=== PATIENT | male | born 1950 | race Caucasian/White ===

== ENCOUNTER 2023-07-31 17:54 | Emergency (ER) | payer OTHER, SELFPAY ==
[2023-07-31 18:12] VITALS: BP 167/75
[2023-07-31] MEDS: NSS 1000 IV (20:06)
[2023-07-31] MEDS: DILAUDID 0.5 MG IV (20:07)
[2023-07-31] MEDS: ZOFRAN 4 MG IV (20:07)
[2023-07-31 20:11] LABS: % Basophils 0.3 % (0-2); % Eosinophils 1.8 % (0-6); % Immature Granulocytes 0.4 % (0-0.5); % Lymphocytes 20.9 % (20.5-51.1); % Monocytes 9.2 % (1.7-9.3); % Neutrophils 67.4 % (42.2-75.2); Absolute Eosinophils 0.2 10^3/uL (0-0.7); Absolute Immature Granulocytes 0.1 10^3/uL (0-0.05); Absolute Lymphocytes 2.5 10^3/uL (1.2-3.4); Absolute Monocytes 1.1 10^3/uL (0.1-0.6); Hematocrit 47.8 % (39.0-52.0); Hemoglobin 16.2 g/dL (13.0-18.0); Mean Corp Hgb Conc. 33.9 g/dL (33.0-37.0); Mean Corpuscular Hgb 29.5 pg (27.0-31.0); Mean Corpuscular Volume 86.9 fL (80.0-94.0); Mean Platelet Volume 10.2 fL (7.4-10.4); Nucleated Red Blood Cells % 0 % (-); Platelet Count 237 10^3/uL (130-400); Red Cell Dist. Width 13.5 % (11.5-14.5); White Blood Cell Count 11.9 10^3/uL (4.8-10.8)
[2023-07-31 20:14] VITALS: BP 134/64; BMI 32.3
[2023-07-31 20:22] LABS: INR 2.13; PT 24.2 Sec (11.4-14.6)
[2023-07-31 20:30] VITALS: BP 143/75
[2023-07-31 20:34] LABS: ALT (SGPT) 27 U/L (0-50); AST (SGOT) 37 U/L (17-59); Albumin 4.3 g/dl (3.5-5.0); Alkaline Phosphatase 72 U/L (38-126); Blood Urea Nitrogen 18 mg/dl (9-20); Calcium 9.8 mg/dl (8.4-10.2); Carbon Dioxide 27 mmol/L (22-30); Chloride 95 mmol/L (98-107); Glucose 172 mg/dl (70-99); Potassium 3.5 mmol/L (3.5-5.1); Sodium 137 mmol/L (135-145); Total Bilirubin 0.8 mg/dl (0.2-1.3); Total Protein 7.4 g/dl (6.3-8.2); eGFR > 60.00
[2023-07-31 21:00] VITALS: BP 121/58
[2023-07-31 21:30] VITALS: BP 130/65
--- NOTE | 2023-07-31 23:23 | ED.GENMED ---
History of Present Illness
General
Chief Complaint: Headache
Source: patient
Exam Limitations: none
Time Seen by Provider: 07/31/23 19:03
Nursing documentation reviewed up to this point in time: agreed with
Travel History
Have you had any contact with someone who has COVID-19?: No
Do you have any symptoms of coronavirus? Fever > 100 degrees, chills, cough, shortness of breath, sore throat, loss of taste or smell, muscle aches, or headache?: No
History of Present Illness
History of Present Illness:
Patient to ED with complaint of severe headache. 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 THis AM he had mild pain behind right eye that rapidly progressed. Complains of light sensitivity and feeling nauseated. Brought to
ED by spouse for eval. No fever/chills, recent illness. No dizziness. No confusion or coordination issues.
Past History
Past History
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
ED Past Surgical History: Cardiac (CABG+Mechanical aortic valve replacement 2008) and Orthopedic
Social History
Tobacco: Non-smoker
Alcohol: None
Personal:
Living: with family
Employment: Employed
Family History
Family History: CAD
Review of Systems
Review of Systems
Allergies reviewed?: Yes
All Other Systems: ROS reviewed and negative except as documented in HPI and ROS
Constitutional: Reports no symptoms
EENT: Reports no symptoms
Respiratory: Reports no symptoms
Cardiac: Reports no symptoms
ABD/GI: Reports nausea
: Reports no symptoms
Musculoskeletal: Reports no symptoms
Skin: Reports no symptoms
Neurological: Reports headache
Psychiatric: Reports no symptoms
Phy Exam
General Physical Exam
General Presentation: well appearing and moderate distress
General age: appears stated age
General Skin: warm and dry
General Habitus: normal
General Mental: alert
General Hydration: appears well hydrated
Eye Exam
Eye Exam: PERRL, EOMI, conjunctiva normal and globe normal
Neurological Exam
Neurological Exam: alert, oriented x3, CN II-XII intact, no motor deficits, no sensory deficits, speech normal and normal gait
Musculoskeletal Exam
Musculoskeletal Exam: full ROM and neuro vasc intact
Skin Exam
Skin Exam: normal color, warm/dry and no rash
Psychiatric Exam
Psychiatric Exam: normal mood/affect
Course
Orders/Labs/Results
Orders:
Orders
07/31/23 18:19
CT Head W/o Iv Contrast Urgent
Comment:
Reason For Exam: headache
07/31/23 19:30
0.9% Sodium Chloride 1000 ml [Nss] 1,000 ml IV BOLUS
HYDROmorphone [Dilaudid] 0.5 mg IV NOW STA
Ondansetron Injectable [Zofran] 4 mg IV NOW STA
07/31/23 19:31
CT Head Angio W/wo Iv Contrast Urgent
Comment:
Reason For Exam: severe right head pain 'worse headache of life'
07/31/23 20:00
Complete Blood Count/With Diff Urgent
Comprehensive Metabolic Panel Urgent
Prothrombin Time Urgent
07/31/23 22:23
Acetaminophen 1000MG/100Ml [Ofirmev] 1,000 mg in 100 ml IV ONCE
Acetaminophen IV Indication:: No OK & No Enteral Access
07/31/23 23:28
Amoxicillin [Amoxil] 500 mg PO NOW STA
Abnormal Lab Results
07/31/23
20:00
WBC 11.9 H 10^3/uL
(4.8-10.8)
Abs Immat Gran (auto) 0.1 H 10^3/uL
(0-0.05)
Absolute Neuts (auto) 8.0 H 10^3/uL
(1.4-6.5)
Absolute Monos (auto) 1.1 H 10^3/uL
(0.1-0.6)
PT 24.2 H Sec
(11.4-14.6)
Chloride 95 L mmol/L
(98-107)
Glucose 172 H mg/dl
(70-99)
07/31/23 20:00
07/31/23 20:00
Vital Signs
Initial and Last Documented VS:
Initial Vital Signs
Temp Pulse Resp BP Pulse Ox
98.3 F 83 16 167/75 100
07/31/23 18:12 07/31/23 18:12 07/31/23 18:12 07/31/23 18:12 07/31/23 18:12
Last Documented Vital Signs
Temp Pulse Resp BP Pulse Ox
98.3 F 58 18 106/54 95
07/31/23 18:12 08/01/23 01:00 08/01/23 01:00 08/01/23 01:00 08/01/23 01:00
*Radiology
Radiology exam reviewed: radiology read reviewed
*Pulse Oximetry
Patient hypoxic: no
*Critical Care Note
Total Time (30-74mins, 75-104mins- exclusive of procedures): Not Applicable
Update Note
Update Note:
Symptoms improved iwth pain medication. He is discharged home and will follow upw ith PCP
ED Attending Note
-
Portions of this chart may have been created with voice recognition software.� Occasional wrong word or��sound alike� substitutions may have occurred due to the inherent limitations of voice recognition software.
Discharge Plan
Departure
Patient Disposition: Home (Routine Discharge)
Date of Disposition: 08/01/23
Time of Disposition: 00:04
Patient with high blood pressure during this ER visit?: No
Condition: Good
Covid-19: Not Applicable
Discharge Problem:
Acute sinusitis, Headache
Instructions: Headache, Adult (DC), Sinusitis, Adult ED
Prescriptions:
New
amoxicillin 500 mg capsule
500 mg PO Q8H Qty: 20 0RF
No Action
metformin 500 MG tablet
1,000 mg PO BID@0800,1700
warfarin [Jantoven] 7.5 MG tablet
7.5 mg PO MOTH
aspirin 81 MG tablet,delayed release (/EC)
81 mg PO DAILY
warfarin [Jantoven] 5 MG tablet
10 mg PO SUTUWEFRSA
chlorthalidone 25 MG tablet
25 mg PO DAILY
sitagliptin phosphate [Januvia] 100 MG tablet
100 mg PO QPM
coenzyme [id number] [Co Q-10 (with Vit E)] 1 EACH capsule
1 ea PO HS
fsxhxpzc-cba-CN-lycopen-lutein [Centrum Silver] 1 EACH tablet
1 ea PO DAILY
cyanocobalamin (vitamin B-12) 1,000 MCG tablet
1,000 mcg PO QPM
nitroglycerin 0.4 MG tablet, sublingual
0.4 mg sublingual [id number] PRN (Reason: chest pain)
Patient Comments:
08/26/18: never used
canagliflozin [Invokana] 100 MG tablet
100 mg PO DAILY
metoprolol tartrate 12.5 MG tablet
12.5 mg PO BID
acetaminophen [Tylenol Extra Strength] 500 MG tablet
1,000 mg PO Q6HPRN PRN (Reason: mild pain)
sodium chloride [Saline Nasal] 50 SPRAYS/45 ML aerosol,spray
2 spray intranasal DAILY PRN (Reason: dry nose/sinus )
cholecalciferol (vitamin D3) 1,000 UNITS tablet
1,000 units PO QPM
omeprazole 20 MG capsule,delayed release(/EC)
20 mg PO BID
tadalafil [Cialis] 5 MG tablet
5 mg PO DAILY
dulaglutide [Trulicity] 3 MG/0.5 ML pen injector
3 mg SC WEEKLY
atorvastatin 80 MG tablet
80 mg PO QPM Qty: 30 0RF
oxycodone-acetaminophen 5 MG/325 MG tablet
1 tab PO Q6HPRN PRN (Reason: pain) Qty: 14 0RF
diazepam 5 MG tablet
5 mg PO BID PRN (Reason: spasm) Qty: 14 0RF
Referrals:
Kyrie Asher MD [Family Provider] -
Interventions
Interventions:
*Risk Screen - Suicide Last Done: 07/31/23 18:12
*General Assessment Last Done: 07/31/23 18:12
*Neglect/Abuse Screening Last Done: 07/31/23 18:12
ED- Fall Risk Assessment Last Done: 07/31/23 20:14
*ED COVID-19 Vaccine History Last Done: 07/31/23 18:12
*Nursing Disposition Last Done: 08/01/23 01:06
ED- Neurological Assessment Last Done: 07/31/23 20:14
Discharge Date and Time
Discharge Date/Time: 08/01/23 01:06
[2023-08-01] MEDS: AMOXIL 500 MG PO (00:02)
[2023-08-01] MEDS: OFIRMEV 100 IV (00:02)
[2023-08-01 00:07] VITALS: BP 139/66
[2023-08-01 00:30] VITALS: BP 116/54
[2023-08-01 01:00] VITALS: BP 106/54
== END 2023-08-01 01:06 | disposition home or self-care (01) ==
LOC: EMR 17:54
PROVIDERS: Nurse Practitioner; EMERGENCY PHYSICIAN Emergency Medicine; FAMILY PHYSICIAN Family Medicine
DX: J01.90 Acute sinusitis, unspecified (principal)
CPT/HCPCS: 99285; 96374; 96375; 96361; 70450; 70496; 80053; 85025; 85610; Q9967

== ENCOUNTER → 2023-09-13 07:45 | Outpatient (REF) | payer OTHER, SELFPAY ==
[2023-09-13 10:02] LABS: % Basophils 0.3 % (0-2); % Eosinophils 1.9 % (0-6); % Immature Granulocytes 0.6 % (0-0.5); % Lymphocytes 22.5 % (20.5-51.1); % Monocytes 8.6 % (1.7-9.3); % Neutrophils 66.1 % (42.2-75.2); Absolute Eosinophils 0.2 10^3/uL (0-0.7); Absolute Immature Granulocytes 0.1 10^3/uL (0-0.05); Absolute Lymphocytes 2.4 10^3/uL (1.2-3.4); Absolute Monocytes 0.9 10^3/uL (0.1-0.6); Absolute Neutrophils 7.1 10^3/uL (1.4-6.5); Hematocrit 46.4 % (39.0-52.0); Hemoglobin 15.3 g/dL (13.0-18.0); Mean Corpuscular Hgb 29.3 pg (27.0-31.0); Mean Corpuscular Volume 88.7 fL (80.0-94.0); Mean Platelet Volume 10.3 fL (7.4-10.4); Nucleated Red Blood Cells % 0 % (-); Platelet Count 290 10^3/uL (130-400); Red Blood Cell Count 5.23 10^6/uL (4.70-6.10); Red Cell Dist. Width 13.4 % (11.5-14.5); White Blood Cell Count 10.7 10^3/uL (4.8-10.8)
[2023-09-13 10:19] LABS: ALT (SGPT) 26 U/L (0-50); AST (SGOT) 32 U/L (17-59); Albumin 4.2 g/dl (3.5-5.0); Alkaline Phosphatase 85 U/L (38-126); Blood Urea Nitrogen 17 mg/dl (9-20); Calcium 9.2 mg/dl (8.4-10.2); Carbon Dioxide 27 mmol/L (22-30); Chloride 101 mmol/L (98-107); Glucose 159 mg/dl (70-99); HDL Cholesterol 41 mg/dl; LDL Cholesterol, Calculated 32 mg/dl; Potassium 3.6 mmol/L (3.5-5.1); Sodium 136 mmol/L (135-145); Total Bilirubin 0.6 mg/dl (0.2-1.3); Total Cholesterol 122 mg/dl (50-199); Total Protein 6.9 g/dl (6.3-8.2); Triglyceride 245 mg/dl (10-149); Very Low Density Lipoprotein 49 mg/dl (0-30); eGFR > 60.00
[2023-09-13 13:16] LABS: Glycohemoglobin (HgbA1c) 8.3 % (4.0-5.6)
== END ==
LOC: HWLAB 07:45
PROVIDERS: ATTENDING PHYSICIAN Family Medicine
DX: E11.65 Type 2 diabetes mellitus with hyperglycemia (principal); I48.0 Paroxysmal atrial fibrillation; I65.23 Occlusion and stenosis of bilateral carotid arteries; I73.9 Peripheral vascular disease, unspecified; E78.2 Mixed hyperlipidemia; I10 Essential (primary) hypertension
CPT/HCPCS: 36415; 80053; 80061; 83036; 85025

== ENCOUNTER → 2023-12-20 09:04 | Outpatient (REF) | payer OTHER, SELFPAY ==
[2023-12-20 13:04] LABS: % Basophils 0.4 % (0-2); % Eosinophils 1.9 % (0-6); % Immature Granulocytes 0.4 % (0-0.5); % Lymphocytes 21.9 % (20.5-51.1); % Monocytes 7.2 % (1.7-9.3); % Neutrophils 68.2 % (42.2-75.2); Absolute Eosinophils 0.2 10^3/uL (0-0.7); Absolute Lymphocytes 2.4 10^3/uL (1.2-3.4); Absolute Monocytes 0.8 10^3/uL (0.1-0.6); Absolute Neutrophils 7.3 10^3/uL (1.4-6.5); Hematocrit 49.7 % (39.0-52.0); Hemoglobin 16.1 g/dL (13.0-18.0); Mean Corp Hgb Conc. 32.4 g/dL (33.0-37.0); Mean Corpuscular Hgb 29.6 pg (27.0-31.0); Mean Corpuscular Volume 91.4 fL (80.0-94.0); Mean Platelet Volume 10.5 fL (7.4-10.4); Nucleated Red Blood Cells % 0 % (-); Platelet Count 240 10^3/uL (130-400); Red Blood Cell Count 5.44 10^6/uL (4.70-6.10); Red Cell Dist. Width 13.3 % (11.5-14.5); White Blood Cell Count 10.8 10^3/uL (4.8-10.8)
[2023-12-20 13:39] LABS: Glycohemoglobin (HgbA1c) 7.5 % (4.0-5.6)
[2023-12-20 13:46] LABS: ALT (SGPT) 26 U/L (0-50); AST (SGOT) 33 U/L (17-59); Albumin 4.7 g/dl (3.5-5.0); Alkaline Phosphatase 77 U/L (38-126); Blood Urea Nitrogen 16 mg/dl (9-20); Calcium 10.2 mg/dl (8.4-10.2); Carbon Dioxide 28 mmol/L (22-30); Chloride 102 mmol/L (98-107); Glucose 151 mg/dl (70-99); HDL Cholesterol 41 mg/dl; LDL Cholesterol, Calculated 42 mg/dl; Potassium 4.3 mmol/L (3.5-5.1); Sodium 139 mmol/L (135-145); Total Bilirubin 0.8 mg/dl (0.2-1.3); Total Cholesterol 128 mg/dl (50-199); Total Protein 7.5 g/dl (6.3-8.2); Triglyceride 227 mg/dl (10-149); Very Low Density Lipoprotein 45 mg/dl (0-30); eGFR > 60.00
[2023-12-20 13:55] LABS: TSH 1.23 uIU/ml (0.47-4.68)
== END ==
LOC: HWLAB 09:04
PROVIDERS: ATTENDING PHYSICIAN Family Medicine
DX: E11.65 Type 2 diabetes mellitus with hyperglycemia (principal); N40.1 Benign prostatic hyperplasia with lower urinary tract symptoms; Z95.1 Presence of aortocoronary bypass graft; E11.9 Type 2 diabetes mellitus without complications; I48.0 Paroxysmal atrial fibrillation; I65.23 Occlusion and stenosis of bilateral carotid arteries; I73.9 Peripheral vascular disease, unspecified; E78.2 Mixed hyperlipidemia
CPT/HCPCS: 36415; 80053; 80061; 83036; 84443; 85025

== ENCOUNTER → 2024-04-17 08:41 | Outpatient (REF) | payer OTHER, SELFPAY ==
[2024-04-17 12:24] LABS: % Basophils 0.5 % (0-2); % Immature Granulocytes 0.3 % (0-0.5); % Lymphocytes 25.3 % (20.5-51.1); % Monocytes 8.5 % (1.7-9.3); % Neutrophils 62.4 % (42.2-75.2); Absolute Basophils 0.1 10^3/uL (0-0.2); Absolute Eosinophils 0.3 10^3/uL (0-0.7); Absolute Lymphocytes 2.4 10^3/uL (1.2-3.4); Absolute Monocytes 0.8 10^3/uL (0.1-0.6); Hematocrit 48.4 % (39.0-52.0); Hemoglobin 15.8 g/dL (13.0-18.0); Mean Corp Hgb Conc. 32.6 g/dL (33.0-37.0); Mean Corpuscular Hgb 29.3 pg (27.0-31.0); Mean Corpuscular Volume 89.8 fL (80.0-94.0); Mean Platelet Volume 10.3 fL (7.4-10.4); Nucleated Red Blood Cells % 0 % (-); Platelet Count 248 10^3/uL (130-400); Red Blood Cell Count 5.39 10^6/uL (4.70-6.10); Red Cell Dist. Width 13.5 % (11.5-14.5); White Blood Cell Count 9.5 10^3/uL (4.8-10.8)
[2024-04-17 12:37] LABS: ALT (SGPT) 22 U/L (0-50); AST (SGOT) 31 U/L (17-59); Albumin 4.5 g/dl (3.5-5.0); Alkaline Phosphatase 72 U/L (38-126); Blood Urea Nitrogen 16 mg/dl (9-20); Calcium 9.6 mg/dl (8.4-10.2); Carbon Dioxide 27 mmol/L (22-30); Chloride 99 mmol/L (98-107); Glucose 153 mg/dl (70-99); HDL Cholesterol 43 mg/dl; LDL Cholesterol, Calculated 55 mg/dl; Potassium 4.3 mmol/L (3.5-5.1); Sodium 140 mmol/L (135-145); Total Cholesterol 139 mg/dl (50-199); Total Protein 7.2 g/dl (6.3-8.2); Triglyceride 206 mg/dl (10-149); Very Low Density Lipoprotein 41 mg/dl (0-30); eGFR > 60.00
[2024-04-17 13:04] LABS: TSH 1.42 uIU/ml (0.47-4.68)
[2024-04-17 14:43] LABS: Glycohemoglobin (HgbA1c) 7.5 % (4.0-5.6)
== END ==
LOC: HWLAB 08:41
PROVIDERS: ATTENDING PHYSICIAN Family Medicine
DX: E11.9 Type 2 diabetes mellitus without complications (principal); N40.1 Benign prostatic hyperplasia with lower urinary tract symptoms; Z95.1 Presence of aortocoronary bypass graft; I48.0 Paroxysmal atrial fibrillation; I65.23 Occlusion and stenosis of bilateral carotid arteries; I73.9 Peripheral vascular disease, unspecified; E11.65 Type 2 diabetes mellitus with hyperglycemia; E78.2 Mixed hyperlipidemia
CPT/HCPCS: 36415; 80053; 80061; 83036; 84443; 85025

== ENCOUNTER 2024-04-19 08:29 | Inpatient (IN) | payer OTHER, SELFPAY ==
[2024-04-18] VITALS (68 sets, daily range): BP systolic 104–168; BP diastolic 58–86; BMI 31.4
--- NOTE | 2024-04-18 06:22 | ED.GENMED ---
History of Present Illness
General
Chief Complaint: Chest Pain
Source: patient and spouse
Time Seen by Provider: 04/18/24 06:12
History of Present Illness
History of Present Illness:
74-year-old male presents to the emergency room complaining of chest pain. Patient rates the pain 7 out of 10. Pain began at 3 AM. Pain does not radiate. Patient has a history of coronary artery disease with bypass surgery and aortic mechanical
valve. Patient denies radiation of the pain. He denies shortness of breath. Patient has not really had any chest pain since his bypass surgery which was about 12 years ago.
Past History
Past History
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
ED Past Surgical History: Cardiac (CABG+Mechanical aortic valve replacement 2008) and Orthopedic
Social History
Tobacco: Non-smoker
Alcohol: None
Personal:
Living: with family
Employment: Employed
Family History
Family History: CAD
Phy Exam
Physical Exam
Physical Exam:
General: Awake, Alert, Oriented X3. No acute distress.
Vitals: unremarkable
Head: Atraumatic
Eyes: Pupils equal, EOMI
Throat: Airway intact, no exudates
Neck: Trachea midline
Lungs: Clear and equal b/l
Heart: Regular rate, mechanical click
Abd: Soft, Nontender, No pulsatile mass
Neuro: Nonfocal
Skin: Warm, dry, no rash
Extremities: pulses equal b/l, no edema
Scores
Heart Score for Chest Pain Patients
STEMI patient?: Yes
Course
Orders/Labs/Results
Orders:
Orders
04/18/24
Electrocardiogram (*1) Stat
Reason for Study: Chest Pain
Comment: DONE
Electrocardiogram (*1) Stat
Reason for Study: Other
04/18/24 Breakfast
NPO
Allow oral meds: Yes
Allow clear liquids: No
04/18/24 06:05
Electrocardiogram (*1) Urgent
Reason for Study: Chest Pain
EKG- Treatment ONCE
04/18/24 06:14
Electrocardiogram (*1) Urgent
Reason for Study: Chest Pain
Cardiac Monitoring- Treatment ONCE
EKG- Treatment ONCE
IV Insert/Care/Rem.- Treatment PRN
Portable Chest Xray [CR Chest Portable - 1 View] Urgent
Comment:
Reason For Exam: cp
Reason Study Needs to be Portable: Patient Unstable
O2 Therapy [RESP] Urgent
Titrate/Wean O2 to maintain O2 sat greater than (%): 90
Special Instructions: Maintain sats >/=90%
Pulse Ox/spot Check [RESP] Urgent
Quantity: 1
Special Instructions: ON ROOM AIR
04/18/24 06:17
Complete Blood Count/With Diff Urgent
Comprehensive Metabolic Panel Urgent
Prothrombin Time Urgent
Troponin I Urgent
04/18/24 06:36
Aspirin Chewable [Low Strength Aspirin] 324 mg .ROUTE .STK-MED ONE
Heparin 5,000 units .ROUTE .STK-MED ONE
Ticagrelor [Brilinta] 180 mg .ROUTE .STK-MED ONE
04/18/24 06:51
Heparin 48593 Units/250 ml 25,000 units in 250 ml .ROUTE .STK-MED
04/18/24 06:58
Echo 2D MMode Color/Doppler Stat
Reason for Study: chest pain eval for wall motion abn
Nitroglycerin 100 mg/250 ml [Nitroglycerin Premix] 100 mg in 250 ml .ROUTE .STK-MED
04/18/24 07:02
Nitroglycerin 100 mg/250 ml [Nitroglycerin Premix] 100 mg in 250 ml IV NOW
Initial dose in mcg/min, then titrate:: 5
Titrate to keep:: SBP < 160 mmHg
Titrate by mcg/min:: 5 mcg/min, may increase by 10 mcg/min if dose > 20 mcg/min
Frequency of titrations (minutes):: every 3-5 minutes
Maximum dose in mcg/min:: 200
Begin to taper infusion when:: Remained at goal for 2hrs
Taper by mcg/min:: 5 mcg/min
Frequency of taper (minutes) if patient maintains goal:: 30
Taper to off?: Yes
If infusion off & no longer maintaining goal:: Contact Provider
04/18/24 07:15
Heparin 36612 Units/250 ml 25,000 units in 250 ml IV PER PROTOCOL
Weight to be used for heparin protocol in kilograms (kg):: 96.5
Protocol:: Cardiac Tx/Acute Coronary
PTT Goal Range to be used:: PTT 73 to 111 seconds
Order type:: Initial
INITIAL Infusion Dose (UNITS/KG/hr) & then follow protocol:: 12 units/kg/hr
Infusion Dose in UNITS/hr & then follow protocol (UNITS/hr):: 1,000
INFUSION RATE in mL/hr & then follow protocol (mL/hr):: 10
PTT less than or equal to 64 seconds:: Increase rate by 200 units/hr (+ 2 mL/hr)
PTT 64.1 to 72.9 seconds:: Increase rate by 100 units/hr (+ 1 mL/hr)
PTT 73 to 111 seconds:: Target Range. No change in rate.
PTT 111.1 to 130.9 seconds:: Decrease rate by 100 units/hr (- 1 mL/hr)
PTT 131 to 199.9 seconds:: HOLD for 1 hr. Then decrease rate by 200 units/hr (- 2 mL/hr)
PTT greater than or equal to 200 seconds:: HOLD for 2 hrs & Notify Provider. Then decrease by 200 units/hr (-
2 mL/hr)
Lab follow-up:: Each change, PTT q6h until 2 consecutive are therapeutic. Then PTT
daily.
04/18/24 09:17
Troponin I Urgent
04/18/24 Lunch
1800 calorie (15 carb) Diabetic
At Your Request: Full Participation
04/18/24 11:00
Add On- LAB Urgent
Tests Added?: PTT
04/18/24 11:25
Electrocardiogram (*1) Urgent
Reason for Study: Chest Pain
EKG- Treatment ONCE
04/18/24 11:37
Heparin 1000 Units/500 ml [Heparin] 1,000 units in 500 ml .ROUTE .STK-MED
Verapamil Injectable [Isoptin/Verapamil Injection] 5 mg .ROUTE .STK-MED ONE
04/18/24 11:38
Heparin Sodium,Porcine/Ns/Pf [Heparin 2000 Units/1000 ml] 2,000 unit in 1,000 ml .ROUTE .STK-MED
Lidocaine HCl/Pf [Xylocaine-Mpf 1% Vial] 50 mg .ROUTE .STK-MED ONE
Nitroglycerin [Tridil] 1,500 mcg .ROUTE .STK-MED ONE
04/18/24 11:40
Fentanyl Citrate/Pf [Sublimaze] 100 mcg .ROUTE .STK-MED ONE
Midazolam HCl [Versed] 2 mg .ROUTE .STK-MED ONE
04/18/24 11:41
Heparin 10,000 units .ROUTE .STK-MED ONE
04/18/24 11:54
Lidocaine HCl/Pf [Xylocaine-Mpf 1% Vial] 50 mg .ROUTE .STK-MED ONE
04/18/24 12:58
Electrocardiogram (*1) Urgent
Reason for Study: Other
Other Reason for Exam: s/p intervention
Comment: cbc
CARDIAC REHAB CONSULT Routine
Co-Sign Provider:
Type of Cardiac Rehab Referral: Outpatient
Diagnosis: NSTEMI
Date of Diagnosis/Surgery: 04/18/24
Referring Provider: Greg Aviles
Activity As Directed
Activity Level: Bedrest
Comment: refer to hemostasis device used for bedrest duration, then ambulate ad mushtaq
[facility] Procedure As Directed
Cardiac Cath Procedure: percutaneous coronary intervention
Femoral Artery Hemostasis Method As Directed
Procedure performed:: Percutaneous Coronary Int
Type of femoral hemostasis method used:: Internal Closure Device
Duration of bedrest (hours):: 3
Call provider if:: hematoma present after hemostasis achieved
Head of Bed-Restrictions As Directed
Comment: may elevate head of bed 30 degrees
Intake/ Output As Directed
Frequency: Per unit guidelines
Notify MD As Directed
Notify physician if: immediately for chest pain or bleeding from access site(s)
Site Checks As Directed
Check access site for bleeding/hematoma: Yes
Comment: on arrival, Q15min x4, Q30min x2, Q1 hr x2, Q2 hr x2, Q4 hr or per
protocol
Vascular Checks As Directed
Location: distal to access site - pulse check
Frequency: Other
Comment: on arrival, Q15min x4, Q30min x2, Q1 hr x2, Q2 hr x2, Q4 hr or per protocol
Vital Signs As Directed
Frequency: Other
Additional Instructions:: on arrival, Q15min x4, Q30min x2, Q1 hr x2, Q2 hr x2, then Q4 hr or per unit
protocol
04/18/24 13:00
0.9% Sodium Chloride 1000 ml [Nss] 1,000 ml IV PER PROTOCOL
Infusion rate in mL/kg/hr:: 1.5
Infusion rate in mL/hr:: 145
Duration of infusion (hours):: 5
Acetaminophen [Tylenol] 650 mg PO Q4HPRN PRN
04/18/24 13:06
Dextrose 50%-Water [Dextrose 50% Syringe] 12.5 grams IV [id number] PRN
Glucagon [GlucaGen] 1 mg IM PRN PRN
04/18/24 13:07
Bedside Glucose Monitoring As Directed
Frequency: AC&HS
Additional Instructions:: Change to q6h if pt on TPN, tube feeding or not eating
04/18/24 15:00
Troponin I Q6H
04/18/24 16:30
Insulin Aspart Corrective Mod [Novolog Flexpen-Moderate Resistance] See Protocol SC AC
04/18/24 18:00
Atorvastatin [Lipitor] 80 mg PO QPM
Ezetimibe [Zetia] 10 mg PO QPM
Warfarin [Coumadin] 10 mg PO TUWETHFR@1800
empagliflozin [Jardiance] 25 mg PO QPM
04/18/24 21:00
Troponin I Q6H
04/19/24 03:00
Troponin I Q6H
04/19/24 06:00
Echo 2D MMode Color/Doppler IN AM
Reason for Study: NSTEMI
Cardiology Consult: Rupert Martin
Electrocardiogram (*1) IN AM
Reason for Study: Other
Other Reason for Exam: s/p intervention
Comment: cbc
Basic Metabolic Panel IN AM
Complete Blood Count/No Diff IN AM
Glycohemoglobin (HgbA1c) IN AM
Prothrombin Time IN AM
04/19/24 08:00
Clopidogrel Bisulfate [Plavix] 600 mg PO ONCE ONE
Lisinopril [Zestril] 2.5 mg PO DAILY
Metoprolol Xl [Toprol Xl] 25 mg PO DAILY
04/19/24 18:00
Warfarin [Coumadin] 10 mg PO SUMOSA@1800
04/20/24 06:00
Electrocardiogram (*1) IN AM
Reason for Study: Other
Other Reason for Exam: s/p intervention
Comment: cbc
Basic Metabolic Panel IN AM
Complete Blood Count/No Diff IN AM
Prothrombin Time IN AM
04/20/24 08:00
Clopidogrel Bisulfate [Plavix] 75 mg PO DAILY
Abnormal Lab Results
04/18/24 04/18/24
06:17 09:17
Absolute Monos (auto) 1.0 H 10^3/uL
(0.1-0.6)
PT 26.4 H Sec
(11.4-14.6)
Carbon Dioxide 21 L mmol/L
(22-30)
Glucose 162 H mg/dl
(70-99)
Troponin I 0.067 H* D ng/ml
04/18/24 06:17
04/18/24 06:17
Vital Signs
Initial and Last Documented VS:
Initial Vital Signs
Pulse Resp Pulse Ox
76 18 94
04/18/24 06:15 04/18/24 06:15 04/18/24 06:15
Last Documented Vital Signs
Temp Pulse Resp BP Pulse Ox
98 F 71 20 120/68 97
04/18/24 06:24 04/18/24 11:35 04/18/24 11:35 04/18/24 11:35 04/18/24 11:35
MDM/Problems Addressed
Differential Diagnosis Includes:
AMI, STEMI, chest wall pain
MDM/Problems Addressed:
Patient presents with chest pain. EKG shows changes in the inferior leads which are ischemic in appearance. They are different when compared to an EKG of 2021. Elevation approximate 1 mm but may not quite be 1 mm. aVL has T wave inversion which
appears ischemic. STEMI alert called. Case discussed with Dr. Gama who immediately got on her way to come to the emergency room and evaluate the patient
Dr. Gama evaluated the patient the emergency room felt EKG changes were present but did not meet STEMI/[facility] criteria at this time. Patient treated with sublingual nitro with initial resolution of his chest discomfort. First troponin was
normal. Patient started on both a nitro and heparin drip. Later in ER stay the patient's chest discomfort returned. Patient was evaluated by Dr. Ariana Goodman. Nitro was uptitrated. Ultimately the patient was taken to the [facility] for persistent
chest discomfort.
Chronic conditions affecting care: DM, HTN and CAD
*Radiology
Radiology exam reviewed: preliminary read by ED provider (No acute disease)
*Pulse Oximetry
Patient hypoxic: no
*EKG
Interpreted by ED Provider?: Yes
Comparison EKG: changes noted
Heart Rate: 70
Rate: normal
Rhythm: sinus
Ischemia: other (st elevation II, III which are close to 1mm with t wave inversion in lead avl)
*Transportation Agent Interpretation
Rate: normal
Interpretation: normal
Rhythm: sinus
*Critical Care Note
Total Time (30-74mins, 75-104mins- exclusive of procedures): 40 min
comment:
Critical care statement: A total of 40 minutes of critical care time was provided for this patient. This includes management of unstable vital signs, evaluation of the patient at bedside, reviewing the patient's pertinent medical records, discussion
with consultants, review of old EKGs and review of pertinent medical records. This time with separate from time utilized to perform the aforementioned documented procedures
Data Reviewed
Review of Other/Old Records Reveals: Discharge Summary
ED Attending Note
-
Portions of this chart may have been created with voice recognition software.� Occasional wrong word or��sound alike� substitutions may have occurred due to the inherent limitations of voice recognition software.
Discharge Plan
Departure
Patient Disposition: Admit
Date of Disposition: 04/18/24
Time of Disposition: 07:06
Admit to: IVU
Presentation/result/management discussed w/ accepting MD/DO: Hospitalist
Discharge Problem:
Acute coronary syndrome, Chest pain
Interventions
Interventions:
*Risk Screen - Suicide Last Done: 04/18/24 06:19
*General Assessment Last Done: 04/18/24 06:19
*ED COVID-19 Vaccine History Last Done: 04/18/24 06:19
*Nursing Disposition Last Done: 04/18/24 12:01
ED- Cardiac Assessment Last Done: 04/18/24 11:31
Discharge Date and Time
Discharge Date/Time: 04/18/24 12:03
[2024-04-18 06:28] LABS: % Basophils 0.5 % (0-2); % Eosinophils 2.4 % (0-6); % Immature Granulocytes 0.4 % (0-0.5); % Lymphocytes 26.2 % (20.5-51.1); % Monocytes 9.3 % (1.7-9.3); % Neutrophils 61.2 % (42.2-75.2); Absolute Basophils 0.1 10^3/uL (0-0.2); Absolute Eosinophils 0.3 10^3/uL (0-0.7); Absolute Lymphocytes 2.7 10^3/uL (1.2-3.4); Absolute Neutrophils 6.2 10^3/uL (1.4-6.5); Hematocrit 46.5 % (39.0-52.0); Hemoglobin 15.7 g/dL (13.0-18.0); Mean Corp Hgb Conc. 33.8 g/dL (33.0-37.0); Mean Corpuscular Hgb 29.2 pg (27.0-31.0); Mean Corpuscular Volume 86.6 fL (80.0-94.0); Mean Platelet Volume 10.2 fL (7.4-10.4); Nucleated Red Blood Cells % 0 % (-); Platelet Count 248 10^3/uL (130-400); Red Blood Cell Count 5.37 10^6/uL (4.70-6.10); Red Cell Dist. Width 13.6 % (11.5-14.5); White Blood Cell Count 10.2 10^3/uL (4.8-10.8)
[2024-04-18 06:38] LABS: INR 2.39; PT 26.4 Sec (11.4-14.6)
[2024-04-18 06:56] LABS: ALT (SGPT) 22 U/L (0-50); AST (SGOT) 29 U/L (17-59); Albumin 4.4 g/dl (3.5-5.0); Alkaline Phosphatase 75 U/L (38-126); Blood Urea Nitrogen 18 mg/dl (9-20); Calcium 9.8 mg/dl (8.4-10.2); Carbon Dioxide 21 mmol/L (22-30); Chloride 104 mmol/L (98-107); Estimated Creatinine Clearance 84 ml/min; Glucose 162 mg/dl (70-99); Sodium 140 mmol/L (135-145); Total Bilirubin 0.6 mg/dl (0.2-1.3); Total Protein 7.1 g/dl (6.3-8.2); eGFR > 60.00
[2024-04-18 07:03] LABS: Troponin I < 0.012 ng/ml
[2024-04-18] MEDS: HEPARIN 25000 UNITS/250 ML IV (07:12)
[2024-04-18] MEDS: NITROGLYCERIN PREMIX 250 IV (07:15)
[2024-04-18 10:16] LABS: Troponin I 0.067 ng/ml
--- NOTE | 2024-04-18 10:47 | CON.CAR ---
Addendum entered and electronically signed by Rupert Martin MD 04/18/24 11:55:
Patient seen and examined in collaboration with NIGHT SUPERVISOR; agree with below.
-74-year-old male with coronary artery disease status-post CABG/mechanical AVR (2008), hypertension, hyperlipidemia, diabetes, bilateral carotid artery stenosis, obesity, and obstructive sleep apnea (on home CPAP) presenting with chest pain;
symptoms/findings consistent with unstable angina and NSTEMI.
-The patient's INR is 2.3; patient continues to have chest pain despite being on heparin drip and uptitrated nitro drip.
-EKG with subtle ST/T changes.
-Case discussed with Interventional Cardiology; patient will undergo urgent cardiac catheterization today--patient and his were notified of the increased bleeding risk, which they accept.
-Patient will be admitted to Hospitalist service; admit to telemetry.
Original Note:
Consultation
Consultation Request
Date/Time Consultation Requested: 04/18/24 9:45a
Date/Time Consultation Performed: 04/18/24 10:30a
Requesting Provider: Dr. Finley
Performing Provider: ROCIO Webb for Dr. Martin
Reason for Consultation: chest pressure
Medical History
-
Chief Complaint: chest pressure
History of Present Illness:
Mr. Benavidez is a 74 yo male with CAD s/p CABG 2008 and mechanical AVR 2008, HTN, HLD, DM, PAT on CPAP and PAD (b/l carotid artery stenosis, Dr. Benson), who presents to the ER with chest pressure that woke him from sleep at 3 AM today. The chest
pressure persisted therefore he came to the ER. Initial troponin less than 0.012, second 1 and 0.067. Initial EKG with inferior ST changes, that improved after IV nitro. He is on IV nitro and still has complaints of chest pressure, also on IV
Heparin. He is admitted to the hospital service and we are consulted for NSTEMI.
Past Medical History
Past Medical History: Other (as above)
Past Surgical History: Other (as above)
Social History
Tobacco: Non-Smoker
Personal:
Living: With Family
Family History
Family History: Early CAD (father age 59)
Allergies / Home Medications
Allergy/AdvReac Type Severity Reaction Status Date / Time
levofloxacin [From Levaquin] Allergy Unknown Verified 09/28/21 05:53
rosuvastatin calcium Allergy Unknown Verified 09/28/21 05:53
[From Crestor]
simvastatin [From Zocor] Allergy MYALGIAS/leg Verified 09/28/21 05:53
cramping
�Medication �Instructions �Recorded �Confirmed �Type
aspirin 81 mg tablet,delayed 81 mg PO DAILY Blood clot 11/08/09 04/18/24 History
release prevention/tx
metformin 500 mg tablet 1,000 mg PO BID@0800,1700 Diabetes 11/08/09 04/18/24 History
warfarin 5 mg tablet (Jantoven) 10 mg PO SUMOSA@1800 Blood clot 11/08/09 04/18/24 History
prevention/tx
chlorthalidone 25 mg tablet 25 mg PO DAILY Fluid 01/04/15 04/18/24 History
retention/Swelling
coenzyme P43-teyswja E 100 mg-5 1 ea PO HS Supplement 01/04/15 04/18/24 History
unit capsule (Co Q-10 (with Vit E))
cyanocobalamin (vitamin B-12) 1,000 mcg PO QPM Supplement 07/07/16 04/18/24 History
1,000 mcg tablet
metoprolol tartrate 25 mg tablet 12.5 mg PO BID Blood pressure 08/07/17 04/18/24 History
acetaminophen 500 mg tablet 1,000 mg PO Q6HPRN PRN mild pain 08/26/18 04/18/24 History
(Tylenol Extra Strength)
cholecalciferol (vitamin D3) 25 1,000 units PO QPM Supplement 08/26/18 04/18/24 History
mcg (1,000 unit) tablet
atorvastatin 80 mg tablet 40 mg PO QPM 04/18/24 04/18/24 History
dulaglutide 4.5 mg/0.5 mL 4.5 mg SC BAL 04/18/24 04/18/24 History
subcutaneous pen injector
(Trulicity)
empagliflozin 25 mg tablet 25 mg PO QPM 04/18/24 04/18/24 History
(Jardiance)
ezetimibe 10 mg tablet (Zetia) 10 mg PO QPM 04/18/24 04/18/24 History
fluticasone propionate 50 2 spray intranasal BID 04/18/24 04/18/24 History
mcg/actuation nasal
spray,suspension
therapeutic multivitamin 1 tab PO DAILY 04/18/24 04/18/24 History
warfarin 5 mg tablet 10 mg PO TUWETHFR@1800 04/18/24 04/18/24 History
Review of Systems
-
All other systems: Negative unless noted
Physical Exam
Vital Signs
Temp Pulse Resp BP Pulse Ox
98 F 71 19 104/76 97
04/18/24 06:24 04/18/24 10:20 04/18/24 10:20 04/18/24 10:20 04/18/24 10:20
Lab Results
04/18/24 06:17
04/18/24 06:17
Troponin I 0.067 ng/ml H* D 04/18/24 09:17
Physical Exam
General: Well Developed, Well Nourished and No Apparent Distress
HEENT: Normocephalic, Anicteric and Moist Mucous Membranes
Respiratory: Clear and Non Labored Respirations
Cardiac: S1/S2, Regular Rhythm and Other (metallic click)
Breast: Deferred by me
GI: Soft, Non Tender and Normal Bowel Sounds
Rectal: Deferred by Provider
Genito-urinary: No Costovertebral Tender
Musculoskeletal: No Clubbing, No Cyanosis and No Edema
Skin: Warm and Dry
Neuro: AO x 3
Psych: Calm
Impression / Plan
-
NSTEMI - acute chest pressure this am.
- Initial troponin less than 0.012, second troponin 0.067.
-On IV nitro and IV heparin, still with mild chest pressure.
-Plan for Calender Supervisor today.
CAD - s/p CABG in 2008.
- NSTEMI as above.
HTN - stable on medical therapy, continue.
HLD - stable on Lipitor 40 mg daily (he has not tolerated higher doses of Lipitor in the past).
-Intolerant to rosuvastatin and simvastatin, which caused myalgias.
-He is also on Zetia, continue.
-Lipid profile 04/17/24 LDL 55.
Mechanical AVR - stable on echo.
-chronic Warfarin, INR 2.39 today.
-IV Heparin now. goal INR 2.5-3.5.
DM - hga1c 7.5% from 04/17/24.
-per hospitalist.
Data Reviewed
-
EKG: Tracing Personally Visualized and interpreted (NSR 68 bpm with LVH, ST abn inferior leads)
Radiology: Report Reviewed by me (CXR: no acute abnormality)
Medical Tests (Nuc Med, Echo etc): Report Reviewed by me (echo 05/2023: EF 55-60%, mod dilated LA, mild MS, mild MR, well seated mechanical AVR with peak/mean gradients 8/4 mmHg, trace TR)
Labs: Labs Reviewed by me
Old Records: Reviewed
--- NOTE | 2024-04-18 12:14 | HPS.HSE ---
Family Physician
-
Family Physician: Kyrie Asher
Chief Complaint
-
chest pain
History of Present Illness
74-year-old male past medical history of CAD status post CABG, mechanical aortic valve replacement 2008, hypertension, hypercholesteremia, diabetes, obstructive sleep apnea, BPH, presented to the emergency room with chest pain starting at 3 and this
morning without radiation. Denies shortness of breath.
He underwent mid LAD stent. He currently denies any symptoms.
He denies smoking or alcohol use.
Medical History
Past Medical History
Past Medical History: Reports Other (CAD status post CABG, mechanical aortic valve replacement 2008, hypertension, hypercholesteremia, diabetes, obstructive sleep apnea, BPH)
Past Surgical History: Reports Other (CABG+Mechanical aortic valve replacement 2008) and Orthopedic)
Social History
Tobacco: Non-smoker
Alcohol: None
Drug: None
Family History
Family History: Not pertinent
Allergies / Home Medications
Allergies reflects when Allergies were last updated in [facility].
Home Medications with original date entered in [facility]
Allergy/Medication List:
Allergies
Allergy/AdvReac Type Severity Reaction Status Date / Time
levofloxacin [From Levaquin] Allergy Unknown Verified 09/28/21 05:53
rosuvastatin calcium Allergy Unknown Verified 09/28/21 05:53
[From Crestor]
simvastatin [From Zocor] Allergy MYALGIAS/leg Verified 09/28/21 05:53
cramping
Home Medications
aspirin 81 mg tablet,delayed release 81 mg PO DAILY Blood clot prevention/tx 11/08/09
metformin 500 mg tablet 1,000 mg PO BID@0800,1700 Diabetes 11/08/09
warfarin 5 mg tablet (Jantoven) 10 mg PO SUMOSA@1800 Blood clot prevention/tx 11/08/09
chlorthalidone 25 mg tablet 25 mg PO DAILY Fluid retention/Swelling 01/04/15
coenzyme F90-jnugyog E 100 mg-5 unit capsule (Co Q-10 (with Vit E)) 1 ea PO HS Supplement 01/04/15
cyanocobalamin (vitamin B-12) 1,000 mcg tablet 1,000 mcg PO QPM Supplement 07/07/16
metoprolol tartrate 25 mg tablet 12.5 mg PO BID Blood pressure 08/07/17
acetaminophen 500 mg tablet (Tylenol Extra Strength) 1,000 mg PO Q6HPRN PRN mild pain 08/26/18
cholecalciferol (vitamin D3) 25 mcg (1,000 unit) tablet 1,000 units PO QPM Supplement 08/26/18
atorvastatin 40 mg tablet 40 mg PO QPM 04/18/24
dulaglutide 4.5 mg/0.5 mL subcutaneous pen injector (Trulicity) 4.5 mg SC BAL 04/18/24
empagliflozin 25 mg tablet (Jardiance) 25 mg PO QPM 04/18/24
ezetimibe 10 mg tablet (Zetia) 10 mg PO QPM 04/18/24
fluticasone propionate 50 mcg/actuation nasal spray,suspension 2 spray intranasal BID 04/18/24
therapeutic multivitamin 1 tab PO DAILY 04/18/24
warfarin 5 mg tablet 10 mg PO TUWETHFR@1800 04/18/24
Review of Systems
-
History Source: Patient
A 12 point ROS was completed and negative except as noted: Yes
Constitutional: Reports No Symptoms
EENT: Reports No Symptoms
Respiratory: Reports No Symptoms
Cardiac: Reports No Symptoms
Abdomen/GI: Reports No Symptoms
: Reports No Symptoms
Musculoskeletal: Reports No Symptoms
Skin: Reports No Symptoms
Neurological: Reports No Symptoms
Endocrine: Reports No Symptoms
Hematologic/Lymphatic: Reports No Symptoms
Psych: Reports No Symptoms
Physical Exam
Vital Signs
Vital Signs
Temp Pulse Resp BP Pulse Ox
98 F 71 20 120/68 97
04/18/24 06:24 04/18/24 11:35 04/18/24 11:35 04/18/24 11:35 04/18/24 11:35
Physical Exam
General: Well Developed, Well Nourished and No Apparent Distress
HEENT: NormoCephalic, Moist mucous membranes and Atraumatic
Respiratory: Clear
Cardiac: S1/S2 and Regular Rhythm; No Murmur or Rub
GI: Soft, Non Tender, Non Distended and Normal Bowel Sounds; No Organomegaly
Rectal: Deferred by Provider
Musculoskeletal: No Clubbing, No Cyanosis and No Edema
Skin: No Rash
Neuro: Nonfocal/grossly intact
Laboratory Results
-
04/18/24 06:17
04/18/24 06:17
Laboratory Results
PT 26.4 Sec (11.4-14.6) H 04/18/24 06:17
INR 2.39 04/18/24 06:17
Total Bilirubin 0.6 mg/dl (0.2-1.3) 04/18/24 06:17
AST 29 U/L (17-59) 04/18/24 06:17
ALT 22 U/L (0-50) 04/18/24 06:17
Alkaline Phosphatase 75 U/L (38-126) 04/18/24 06:17
Troponin I 0.067 ng/ml H* D 04/18/24 09:17
Data Reviewed
-
Lab Data: Labs Reviewed by me
Old Records: Reviewed
Impression/Plan
-
IMPRESSION:
PLAN:
# Unstable angina/NSTEMI status post mid LAD stent
# History of CAD status post CABG in 2008
-EKG shows nonspecific T wave inversions
-Troponin initially negative, increased to 0.067
-Patient underwent cardiac catheterization for recurrent chest pain
-Continue Plavix and Coumadin postcatheterization
-No longer on heparin drip and nitroglycerin drip
-Continue metoprolol
-Check A1c and lipid panel
# History of mechanical aortic valve replacement in 2008
-On Coumadin, INR 2.39, continue
-Goal INR of 2.5-3.5
-daily INR
Essential hypertension
-Lisinopril started
-Chlorthalidone held
Type 2 diabetes
-Hold metformin
-Continue Jardiance
-Insulin sliding scale
Hyperlipidemia
-Continue atorvastatin
-Continue Zetia
Obstructive sleep apnea
-Continue CPAP
BPH
Full code
DVT prophylaxis�Coumadin
Cardiac diet
--- NOTE | 2024-04-18 12:59 | ITS.CL.ANGIO ---
Critical Power Install Technician - Angioplasty
Angioplasty
Procedure Report:
CARDIAC CATHETERIZATION REPORT
Date of Procedure: 04/18/2024
Referring: Rupert Martin M.D.
INDICATION: Known coronary artery disease status post prior bypass and mechanical AVR, Non-ST elevation myocardial infarction.
PROCEDURE:
1. Coronary angiography.
2. Bypass angiography
3. Successful PCI of the mid LAD through the [place] S[place]OS graft.
ACCESS:
6 [place] right common femoral artery using a modified Seldinger technique with a micropuncture kit under ultrasound guidance.
CATHETERS:
1. 6 [place] JL 4.
2. 6 [place] JR4.
3. 6 [place] LUIGI.
4. 6 [place] LUIGI guiding catheter.
HEMODYNAMIC DATA
Weight (kg): 96.2
AO (s/d/x, mmHg): 121/62/88
LV (s/x mmHg): Not obtained.
LEFT VENTRICULOGRAPHY: Not performed. Mechanical aortic valve observed.
CORONARY ANGIOGRAPHY
Dominance: Right.
Left Main: Normal size, bifurcating vessel. There is diffuse, moderate disease throughout the body of the left main.
LAD: Normal size vessel giving rise to 2 diagonals. There is an 80-90% lesion in the proximal vessel spanning the origin of D1. There is a hazy, 80% lesion in the mid vessel at the anastomosis site, spanning the origin of D2. The mid and
distal LAD is supplied by a patent [place] SANTOS graft.
Ramus: Congenitally absent.
Circumflex: Normal size, nondominant vessel giving rise to 2 obtuse marginals by report. The vessel is chronically totally occluded at its origin. OM 2 is supplied by a patent sequential vein graft.
RCA: Large size, dominant vessel. The vessel is chronically totally occluded at its origin. The RPDA is supplied by a patent sequential vein graft.
BYPASS GRAFT ANGIOGRAPHY
DE [place] SANTOS to LAD: Normal size graft with moderate to severe tortuosity and end-to-side anastomosis at the mid LAD. There is a hazy, 80% lesion within the LAD at the site of the anastomosis and extending beyond D2.
Seq SVG to OM 2 to RPDA: Large size graft with [id number] anastomosis to OM 2 followed by an end-to-side anastomosis to the RPDA. There is no evidence of stenosis or graft degeneration.
INTERVENTION(S)
1. Successful PCI of the hazy, 80% mid LAD lesion via the DE [place] SANTOS graft (Medtronic [place] 2.75 x 26 ELLIOTT, postdilated with a 2.75 NC balloon) with reduction in stenosis to 0%, maintaining REINALDO-3 flow.
Narrative:
The decision was made to proceed with percutaneous coronary intervention. The diagnostic catheter was removed over a wire and a 6Fr LUIGI guiding catheter was advanced to the left subclavian artery and seated in the DE [place] SANTOS ostium. Additional heparin was
given and a Power Turn Flex wire was advanced into the distal LAD through the DE [place] S[place]OS graft. A 6 [place] guide liner was advanced over the power turn flex wire with balloon support. The hazy, 80% mid LAD lesion was predilated with a 2.0 x 12
semi-compliant balloon to 12 joceline. The semi-compliant balloon was removed and a Medtronic [place] 2.75 x 26 drug-eluting stent was advanced. The stent was deployed at 12 atmospheres. The stent balloon was removed. A 2.75 x 20 noncompliant
balloon was advanced into the stent and the stent was postdilated to 14 atmospheres in the distal margin and 16 joceline in the proximal margin. Angiography was performed in orthogonal views, confirming good stent expansion and an excellent angiographic
result. The coronary wire and the GuideLiner were withdrawn to the proximal graft. Angiography was performed showing an excellent PCI result and confirming no trauma or damage to the DE [place] SANTOS graft. The guide was disengaged from the artery. The
catheter was removed over a standard J-wire.
Closure Device: 6 [place] Angio-Seal plus manual pressure given elevated INR.
Radiation (mGy): 1429.06
DAP (cm2.Gy): 104.28
Fluoroscopy time (minutes): 12.6
Sedation time (minutes): 48
CONCLUSIONS
1. Right dominant circulation with chronic total occlusion of the ostial RCA, moderate, diffuse disease throughout the body of the left main, a chronic total occlusion of the circumflex at its ostium and 80-90% lesion in the proximal LAD spanning
the origin of D1 as well as an 80% lesion in the mid LAD spanning the origin of D2 at the anastomosis site, status post prior three-vessel CABG (patent DE [place] SANTOS to mid LAD, patent sequential SVG to OM 2 to RPDA), status post successful PCI of the hazy,
80% mid LAD lesion via the DE [place] SANTOS graft (Medtronic [place] 2.75 x 26 ELLIOTT, postdilated with a 2.75 NC balloon) with reduction in stenosis to 0%, maintaining REINALDO-3 flow.
2. Status post prior mechanical aortic valve replacement.
RECOMMENDATIONS:
1. Expectant management after cardiac catheterization via right femoral approach.
2. Limited weight bearing for one week.
3. Antithrombotic therapy with clopidogrel and warfarin.
4. Trend troponins to peak.
5. Echocardiogram ordered and pending.
6. Guideline directed medical therapy as hemodynamics will tolerate.
7. Aggressive risk factor modification.
8. Referral to cardiac rehab.
Copy to: Rupert Martin M.D., Kyrie Asher M.D., Greg Aviles M.D.
Ollie Eli DO, FACC, FACP
[2024-04-18 15:17] LABS: Glucose - Point of Care 105 mg/dl (70-99)
--- NOTE | 2024-04-18 15:21 | PTCARENOTE ---
Received patient from cardiac catheterization technologist, patient lying flat with access to right femoral artery which was angiosealed, distal pules by Doppler only. patient instructed on post cath procedure and verbalized understanding. monitor shows NSR, VSS. lab work
drawn as ordered. family at bedside.
--- NOTE | 2024-04-18 15:52 | CM ---
CM following for DC planning needs.
Met w/ patient, spouse and son at bedside to complete initial assessment.
Pt. resides w/ spouse in a private, multi level home.
Pt. is functionally indep. w/ ADLs, mobility without the use of any assisted device.
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
Pt. has Rx plan and uses [facility] in [place].
Anticipate DC to home once stable without needs.
Will follow.
[2024-04-18 16:03] LABS: HDL Cholesterol 39 mg/dl; LDL Cholesterol, Calculated 54 mg/dl; Total Cholesterol 114 mg/dl (50-199); Triglyceride 106 mg/dl (10-149); Very Low Density Lipoprotein 21 mg/dl (0-30)
[2024-04-18] MEDS: LIPITOR 80 MG PO (18:30)
[2024-04-18] MEDS: FARXIGA 10 MG PO (18:31)
[2024-04-18] MEDS: ZETIA 10 MG PO (18:31)
--- NOTE | 2024-04-18 18:57 | PTCARENOTE ---
patient up OOB with assist went to BR and sat in chair, right groin unchanged. patient retuned back to bed and after 1 hour c/o discomfort, right groin has hematoma, held manual pressure for 20 minutes, marked groin hematoma with marker,
ecchymotic, dsg. has dime size blood on dsg. at present groin is ecchymotic, soft to touch and walking rounds completed with on coming RN's. patient was scheduled for po Coumadin tonight, TT Dr. Eli, received order to hold Coumadin tonight.
[2024-04-18 22:42] LABS: Glucose - Point of Care 151 mg/dl (70-99)
[2024-04-19] VITALS (8 sets, daily range): BP systolic 112–142; BP diastolic 65–77; BMI 31.6
[2024-04-19] MEDS: TYLENOL 650 MG PO (03:45)
[2024-04-19 03:57] LABS: Hematocrit 41.6 % (39.0-52.0); Hemoglobin 14.6 g/dL (13.0-18.0); Mean Corp Hgb Conc. 35.1 g/dL (33.0-37.0); Mean Corpuscular Hgb 29.7 pg (27.0-31.0); Mean Corpuscular Volume 84.6 fL (80.0-94.0); Platelet Count 237 10^3/uL (130-400); Red Blood Cell Count 4.92 10^6/uL (4.70-6.10); Red Cell Dist. Width 13.6 % (11.5-14.5); White Blood Cell Count 12.5 10^3/uL (4.8-10.8)
[2024-04-19 04:10] LABS: INR 2.28
[2024-04-19 04:23] LABS: ALT (SGPT) 22 U/L (0-50); AST (SGOT) 60 U/L (17-59); Albumin 4.1 g/dl (3.5-5.0); Alkaline Phosphatase 69 U/L (38-126); Blood Urea Nitrogen 16 mg/dl (9-20); Calcium 9.3 mg/dl (8.4-10.2); Carbon Dioxide 19 mmol/L (22-30); Chloride 104 mmol/L (98-107); Estimated Creatinine Clearance 94 ml/min; Glucose 139 mg/dl (70-99); Sodium 140 mmol/L (135-145); Total Bilirubin 1.2 mg/dl (0.2-1.3); Total Protein 6.8 g/dl (6.3-8.2); eGFR > 60.00
--- NOTE | 2024-04-19 05:07 | PTCARENOTE ---
Rec'd pt at change of shift. Pt AAO*3, Pt vss, and on TELE monitor in NSR. Pt with R femoral artery site intact. Site with 3x3 cm red drainage contained within transparent dressing. Site ecchymotic and soft upon palpation. Pt agreed to report
any signs or symptoms of bleeding to nursing staff. Pt resting with call xiao in reach. Plan of care ongoing.
--- NOTE | 2024-04-19 07:48 | W.PN.HOSP.TC ---
Today's Communication/Plan
-
cont cardiac monitoring
ok to discontinue routine FS, sugars consistently well controlled
cont diabetic diet, SGLT2 inhibitor
plavix warfarin as per Cardio
Assessment / Plan
Assessment / Plan
Physical Exam
General: Well Developed, Well Nourished and No Apparent Distress
HEENT: NormoCephalic, Moist mucous membranes and Atraumatic
Respiratory: Clear
Cardiac: S1/S2 and Regular Rhythm; No Murmur or Rub
GI: Soft, Non Tender, Non Distended and Normal Bowel Sounds; No Organomegaly
Musculoskeletal: No Clubbing, No Cyanosis and No Edema
Skin: No Rash
Neuro: Awake alert conversant coherent
74M CAD CABG, mechanical AVR 2008, HTN, HLD, DM, PAT, BPH, p/w chest pain d/t NSTEMI underwent mid LAD stent.
# Unstable angina/NSTEMI status post mid LAD stent
# History of CAD status post CABG in 2008
-Continue Plavix and Coumadin postcatheterization
-heparin and nitroglycerin drip completed
-troponin trended to peak 5.000 since trended down
-Continue metoprolol
-lipid panel appreciated LDL within goal <70
# History of mechanical aortic valve replacement in 2008
-On Coumadin, INR 2.39, continue
-Goal INR of 2.5-3.0 as per Cardio
-daily INR
-Warfarin dose increased 12mg qpm Saulo, cont home 10 mg qpm rest of days
Essential hypertension
-Lisinopril started
-Chlorthalidone held
Type 2 diabetes
-A1c appreciated 7.5
-Hold metformin recent cath
-Continue SGLT2 inhibitor
-Sugars consistently well controlled at this time, no need for routine FS since discontinued
Hyperlipidemia
-Continue atorvastatin
-Continue Zetia
Obstructive sleep apnea
-Continue CPAP
BPH
Full code
DVT prophylaxis�Coumadin
Cardiac diet
I spent a total of 50 minutes with the patient or on the floor. More than 50% of this time involved counseling and coordination of care.
Anticipated Discharge: 24 - 48 hours
Subjective/Interval History
-
Date of Service: April 19, 2024
Seen and examined at bedside in no acute distress sitting up comfortably in bed. Overall reports feeling well. Chest pain resolved.
Objective Data
-
Labs:
Laboratory Results
04/19/24
03:42
WBC 12.5 H
Hgb 14.6
Hct 41.6
Plt Count 237
PT 25.0 H
INR 2.28
Sodium 140
Potassium 4.0
Chloride 104
Carbon Dioxide 19 L
BUN 16
Creatinine 0.8
Glucose 139 H
Calcium 9.3
Total Bilirubin 1.2
AST 60 H
ALT 22
Alkaline Phosphatase 69
Vital Signs:
Vital Signs
Temp Pulse Resp BP Pulse Ox
97.8 F 67 16 142/74 94
04/19/24 07:14 04/19/24 07:14 04/19/24 07:14 04/19/24 03:33 04/19/24 07:14
I&O
04/18/24 04/19/24 04/20/24
06:59 06:59 06:59
Intake Total 1205 / 1205
Output Total 775 / 775
Balance 430 / 430
[2024-04-19 08:09] LABS: Glucose - Point of Care 135 mg/dl (70-99)
[2024-04-19] MEDS: ZESTRIL 2.5 MG PO (08:19)
[2024-04-19] MEDS: TOPROL XL 25 MG PO (08:19)
[2024-04-19] MEDS: PLAVIX 600 MG PO (08:19)
--- NOTE | 2024-04-19 10:09 | W.PN.CD ---
Today's Communication / Plan
-
- Increase warfarin dose
- Continue Plavix
Impression / Plan
-
NSTEMI - acute chest pressure this am.
- Initial troponin less than 0.012, second troponin 0.067.
-s/p cath 04/18/24
Right dominant circulation with chronic total occlusion of the ostial RCA, moderate, diffuse disease throughout the body of the left main, a chronic total occlusion of the circumflex at its ostium and 80-90% lesion in the proximal LAD spanning the
origin of D1 as well as an 80% lesion in the mid LAD spanning the origin of D2 at the anastomosis site,
status post prior three-vessel CABG (patent DE LOS SANTOS to mid LAD, patent sequential SVG to OM 2 to RPDA),
status post successful PCI of the hazy, 80% mid LAD lesion via the DE [place] SANTOS graft (Medtronic [place] 2.75 x 26 ELLIOTT, postdilated with a 2.75 NC balloon) with reduction in stenosis to 0%, maintaining REINALDO-3 flow.
- On Warfarin and Plavix. With recent stent and without ASA, would allow higher INR
- Increase Mon, Sat and Sun dose to 12 mg QD. Keep rest of the week at 10mg.
- INR in AM if still inhouse.
CAD - s/p CABG in 2008.
- NSTEMI as above.
HTN - stable on medical therapy, continue.
HLD - stable on Lipitor 40 mg daily (he has not tolerated higher doses of Lipitor in the past).
-Intolerant to rosuvastatin and simvastatin, which caused myalgias.
-He is also on Zetia, continue.
-Lipid profile 04/17/24 LDL 55.
Mechanical AVR - stable on echo.
-chronic Warfarin, INR 2.39 today.
-IV Heparin now. goal INR 2.5-3.0.
DM - hga1c 7.5% from 04/17/24.
-per hospitalist.
Physical Exam
Vital Signs/Labs
Vital Signs
Temp Pulse Resp BP Pulse Ox
97.8 F 72 16 140/75 96
04/19/24 07:14 04/19/24 08:19 04/19/24 07:14 04/19/24 08:19 04/19/24 08:41
04/18/24 04/19/24 04/20/24
06:59 06:59 06:59
Actual Weight 96.5 kg 97 kg
04/19/24 03:42
04/19/24 03:42
PT 25.0 Sec (11.4-14.6) H 04/19/24 03:42
INR 2.28 04/19/24 03:42
APTT Cancelled 04/18/24 07:02
Triglycerides 106 mg/dl (10-149) 04/18/24 15:29
LDL Cholesterol, Calc 54 mg/dl 04/18/24 15:29
VLDL Cholesterol, Calc 21 mg/dl (0-30) 04/18/24 15:29
HDL Cholesterol 39 mg/dl 04/18/24 15:29
LAB Results
04/18/24 04/18/24 04/18/24
06:17 09:17 15:29
Troponin I < 0.012 0.067 H* D 1.190 H* D
04/18/24 04/19/24
21:25 03:42
Troponin I 3.700 H* D 5.000 H* D
Physical Exam
Constitutional: No acute distress and Comfortable
EENT: Anicteric and Moist mucous membranes
Cardiovascular: Rhythm & rate is regular, Pedal edema is absent and JVD pressure is normal
Respiratory: Respiratory effort normal and Wheeze Absent
GI: Soft, Non tender and Normal bowel sounds
Neuro/Psych: Alert, Oriented and AO x 3
Data Reviewed
-
Date of Service: April 19, 2024
Medical Decision Making: Reviewed Test Results, Independent Historian Assessment and Review of Case with other Provider
EKG: Tracing Personally Visualized and interpreted
Echo: Report Reviewed by me
Labs: Labs Reviewed by me
Old Records: Reviewed
--- NOTE | 2024-04-19 10:11 | PTCARENOTE ---
patient c/o constipation, TT Dr. Bolaños, ordered miralax and senokot.
[2024-04-19] MEDS: MIRALAX 17 GRAMS PO (10:53)
[2024-04-19 12:00] LABS: Glucose - Point of Care 140 mg/dl (70-99)
[2024-04-19] MEDS: ZETIA 10 MG PO (17:19)
[2024-04-19] MEDS: LIPITOR 80 MG PO (17:19)
[2024-04-19] MEDS: FARXIGA 10 MG PO (17:19)
[2024-04-19] MEDS: COUMADIN 12 MG PO (17:21)
[2024-04-19] MEDS: VITAMIN B-12 1000 MCG PO (18:18)
[2024-04-19] MEDS: VITAMIN D3 (cholecalciferol) 25 MCG PO (18:18)
[2024-04-19] MEDS: SENOKOT-S PO (19:52)
[2024-04-20] VITALS (7 sets, daily range): BP systolic 110–128; BP diastolic 60–78
--- NOTE | 2024-04-20 00:47 | PTCARENOTE ---
Tele remains SR on monitor, HR in the 60-70's at rest. Patient c/o intermittent right chest discomfort, and described as 'intermittent & sharp'. Patient aware of PRN Tylenol, and declines to take any at this time. Right groin dressing w/ old
drainage and site ecchymotic. Soft upon palpation. Patient aware of POC, call xiao within reach.
[2024-04-20 04:50] LABS: INR 2.66; PT 28.2 Sec (11.4-14.6)
[2024-04-20 04:54] LABS: Hematocrit 40.6 % (39.0-52.0); Mean Corp Hgb Conc. 34.5 g/dL (33.0-37.0); Mean Corpuscular Hgb 29.2 pg (27.0-31.0); Mean Corpuscular Volume 84.6 fL (80.0-94.0); Mean Platelet Volume 10.2 fL (7.4-10.4); Platelet Count 238 10^3/uL (130-400); Red Cell Dist. Width 13.6 % (11.5-14.5); White Blood Cell Count 11.4 10^3/uL (4.8-10.8)
[2024-04-20 05:10] LABS: Blood Urea Nitrogen 21 mg/dl (9-20); Calcium 9.5 mg/dl (8.4-10.2); Carbon Dioxide 22 mmol/L (22-30); Chloride 102 mmol/L (98-107); Estimated Creatinine Clearance 94 ml/min; Glucose 143 mg/dl (70-99); Potassium 4.1 mmol/L (3.5-5.1); Sodium 137 mmol/L (135-145); eGFR > 60.00
--- NOTE | 2024-04-20 07:14 | W.PN.HOSP.TC ---
Today's Communication/Plan
-
cont plavix coumadin
daily INR checks while inpt
intermittent ice packs right groin tenderness/swelling/ecchymosis
monitor H&H
Assessment / Plan
Assessment / Plan
Physical Exam
General: Well Developed, Well Nourished and No Apparent Distress
HEENT: NormoCephalic, Moist mucous membranes and Atraumatic
Respiratory: Clear
Cardiac: S1/S2 and Regular Rhythm; No Murmur or Rub
GI: Soft, Non Tender, Non Distended and Normal Bowel Sounds; No Organomegaly
Musculoskeletal: No Clubbing, No Cyanosis and No Edema
Skin: right groin ecchymosis swelling tenderness noted
Neuro: Awake alert conversant coherent
74M CAD CABG, mechanical AVR 2008, HTN, HLD, DM, PAT, BPH, p/w chest pain d/t NSTEMI underwent mid LAD stent.
# Unstable angina/NSTEMI status post mid LAD stent
# History of CAD status post CABG in 2008
-Continue Plavix and Coumadin postcatheterization
-heparin and nitroglycerin drip completed
-troponin trended to peak 5.000 since trended down
-Continue metoprolol
-lipid panel appreciated LDL within goal <70, home statin continued
#Right groin swelling tenderness, site of cath
groin US appreciated no hematoma or aneurysm
intermittent ice packs ordered
# History of mechanical aortic valve replacement in 2008
-On Coumadin, INR therapeutic
-Goal INR of 2.5-3.0 as per Cardio
-daily INR checks while inpt
-Warfarin dose briefly increased to 12mg since reduced back to home dosage
Essential hypertension
-Lisinopril started
-Chlorthalidone held
Type 2 diabetes
-A1c appreciated 7.5
-Hold metformin recent cath
-Continue SGLT2 inhibitor
-Sugars consistently well controlled at this time, no need for routine FS since discontinued
Hyperlipidemia
-Continue atorvastatin
-Continue Zetia
Obstructive sleep apnea
-Continue CPAP
BPH
Full code
DVT prophylaxis�Coumadin
Cardiac diet
I spent a total of 40 minutes with the patient or on the floor. More than 50% of this time involved counseling and coordination of care.
Anticipated Discharge: Within 24 hours
Subjective/Interval History
-
Date of Service: April 20, 2024
No acute distress. Reports pain swelling tenderness right groin, site of cath.
Objective Data
-
Labs:
Laboratory Results
04/20/24
04:06
WBC 11.4 H
Hgb 14.0
Hct 40.6
Plt Count 238
PT 28.2 H
INR 2.66
Sodium 137
Potassium 4.1
Chloride 102
Carbon Dioxide 22
BUN 21 H
Creatinine 0.8
Glucose 143 H
Calcium 9.5
Vital Signs:
Vital Signs
Temp Pulse Resp BP Pulse Ox
98.2 F 63 18 118/72 96
04/20/24 03:47 04/20/24 06:00 04/20/24 03:47 04/20/24 03:45 04/20/24 03:47
I&O
04/19/24 04/20/24 04/21/24
06:59 06:59 06:59
Intake Total 1205 / 1205
Output Total 775 / 775
Balance 430 / 430
[2024-04-20] MEDS: SENOKOT-S 1 TABLET PO (08:34)
[2024-04-20] MEDS: MIRALAX PO (08:34)
[2024-04-20] MEDS: PLAVIX 75 MG PO (08:34)
[2024-04-20] MEDS: TOPROL XL 25 MG PO (08:34)
[2024-04-20] MEDS: ZESTRIL 2.5 MG PO (08:34)
[2024-04-20] MEDS: THERAGRAN 1 TABLET PO (08:34)
--- NOTE | 2024-04-20 09:33 | W.PN.CD ---
Today's Communication / Plan
-
-Groin ultrasound to rule out any bleed
-INR is therapeutic. Change warfarin dose to 10 mg tonight
Impression / Plan
-
NSTEMI - acute chest pressure this am.
- Initial troponin less than 0.012, second troponin 0.067.
-s/p cath 04/18/24
Right dominant circulation with chronic total occlusion of the ostial RCA, moderate, diffuse disease throughout the body of the left main, a chronic total occlusion of the circumflex at its ostium and 80-90% lesion in the proximal LAD spanning the
origin of D1 as well as an 80% lesion in the mid LAD spanning the origin of D2 at the anastomosis site,
status post prior three-vessel CABG (patent DE LOS SANTOS to mid LAD, patent sequential SVG to OM 2 to RPDA),
status post successful PCI of the hazy, 80% mid LAD lesion via the DE [place] SANTOS graft (Medtronic Denis [place] 2.75 x 26 ELLIOTT, postdilated with a 2.75 NC balloon) with reduction in stenosis to 0%, maintaining REINALDO-3 flow.
- On Warfarin and Plavix. With recent stent and without ASA, would allow higher INR
- Increase Mon, Sat and Sun dose to 12 mg QD. Keep rest of the week at 10mg.
- INR in AM if still inhouse.
-Groin ecchymosis. Groin ultrasound ordered. Hemoglobin is relatively stable.
CAD - s/p CABG in 2008.
- NSTEMI as above.
HTN - stable on medical therapy, continue.
HLD - stable on Lipitor 40 mg daily (he has not tolerated higher doses of Lipitor in the past).
-Intolerant to rosuvastatin and simvastatin, which caused myalgias.
-He is also on Zetia, continue.
-Lipid profile 04/17/24 LDL 55.
Mechanical AVR - stable on echo.
-chronic Warfarin, INR 2.6 today.
-goal INR 2.5-3.0.
DM - hga1c 7.5% from 04/17/24.
-per hospitalist.
Physical Exam
Vital Signs/Labs
Vital Signs
Temp Pulse Resp BP Pulse Ox
97.8 F 74 20 119/78 96
04/20/24 07:34 04/20/24 08:34 04/20/24 07:34 04/20/24 08:34 04/20/24 07:34
04/19/24 04/20/24 04/21/24
06:59 06:59 06:59
Actual Weight 97 kg
04/20/24 04:06
04/20/24 04:06
PT 28.2 Sec (11.4-14.6) H 04/20/24 04:06
INR 2.66 04/20/24 04:06
APTT Cancelled 04/18/24 07:02
Triglycerides 106 mg/dl (10-149) 04/18/24 15:29
LDL Cholesterol, Calc 54 mg/dl 04/18/24 15:29
VLDL Cholesterol, Calc 21 mg/dl (0-30) 04/18/24 15:29
HDL Cholesterol 39 mg/dl 04/18/24 15:29
LAB Results
04/18/24 04/18/24 04/18/24
06:17 09:17 15:29
Troponin I < 0.012 0.067 H* D 1.190 H* D
04/18/24 04/19/24 04/19/24
21:25 03:42 10:15
Troponin I 3.700 H* D 5.000 H* D 4.130 H*
Physical Exam
Constitutional: No acute distress and Comfortable
EENT: Anicteric and Moist mucous membranes
Cardiovascular: Rhythm & rate is regular, Pedal edema is absent, JVD pressure is normal and Systolic murmur absent
Respiratory: Respiratory effort normal, Lungs clear to auscul. and Crackles Absent
GI: Soft, Non tender and Normal bowel sounds
Neuro/Psych: Alert, Oriented and AO x 3
Other: Cath Site (skin ecchymosis noted. arterial puncture site pressure was applied and held for 15-20 min. )
Data Reviewed
-
Date of Service: April 20, 2024
Medical Decision Making: Reviewed Test Results and Independent Historian Assessment
EKG: Tracing Personally Visualized and interpreted
Echo: Report Reviewed by me
Labs: Labs Reviewed by me
Old Records: Reviewed
Critical Care Time (in minutes): 35
[2024-04-20] MEDS: TYLENOL 1000 MG PO (09:39)
[2024-04-20] MEDS: NON-FORMULARY ITEM 4.5 MG SC (10:47)
--- NOTE | 2024-04-20 10:55 | PTCARENOTE ---
Addendum entered by Michelle Salas RN 04/20/24 10:59:
Tylenol po given for groin pain as ordered.
Original Note:
received patient this am, patient stated 'my groin is painful', instructed patient to get back in bed, large hematoma noted, held manual pressure for 20 minutes. groin is soft, very ecchymotic, distal pulse by Doppler. notified Dr. Bolaños, ordered
[facility], contacted. Nsg. vending stand supervisor who in turn contacted [facility] tech protection consultant. they will be in soon. monitor shows NSR, VSS, family at bedside.
--- NOTE | 2024-04-20 11:20 | PTCARENOTE ---
patient to [facility] via stretcher.
--- NOTE | 2024-04-20 11:57 | PTCARENOTE ---
patient returned from /S, ice pack applied to right groin for 20 minutes q 4 hours as ordered.
[2024-04-20] MEDS: ZETIA 10 MG PO (17:13)
[2024-04-20] MEDS: FARXIGA 10 MG PO (17:13)
[2024-04-20] MEDS: VITAMIN D3 (cholecalciferol) 25 MCG PO (17:13)
[2024-04-20] MEDS: LIPITOR 40 MG PO (17:14)
[2024-04-20] MEDS: VITAMIN B-12 1000 MCG PO (17:17)
[2024-04-20] MEDS: COUMADIN 10 MG PO (17:18)
[2024-04-20] MEDS: SENOKOT-S PO (20:07)
[2024-04-21] VITALS (8 sets, daily range): BP systolic 116–133; BP diastolic 64–75
--- NOTE | 2024-04-21 00:52 | PTCARENOTE ---
Right groin hematoma assessed at 2234 while checking routine vitals, no oozing ; VSS, peripheral circulation intact. Approx. 5 x 5 cm, area above previous sheath insertion site and within pannus skin fold. Old ecchymosis still present with no new
growth. Direct pressure held x 20 minutes with some improvement and area assessed by CV-SCALER Rey, who then spoke to Dr. Stone - no new orders at this time, ok not to keep holding manual pressure at this time. Pt. encouraged to use urinal
overnight as he stated he thinks hematoma re-occurred when he got OOB earlier to use bathroom. Area tender on palpation but no acute pain assessed. Ice applied in 20 minute increments q 4h as per order.
[2024-04-21 04:33] LABS: Hematocrit 40.4 % (39.0-52.0); Mean Corp Hgb Conc. 34.7 g/dL (33.0-37.0); Mean Corpuscular Hgb 29.4 pg (27.0-31.0); Mean Corpuscular Volume 84.9 fL (80.0-94.0); Mean Platelet Volume 10.4 fL (7.4-10.4); Platelet Count 247 10^3/uL (130-400); Red Blood Cell Count 4.76 10^6/uL (4.70-6.10); Red Cell Dist. Width 13.6 % (11.5-14.5); White Blood Cell Count 11.3 10^3/uL (4.8-10.8)
[2024-04-21 04:42] LABS: INR 3.55; PT 35.5 Sec (11.4-14.6)
[2024-04-21 05:09] LABS: Blood Urea Nitrogen 24 mg/dl (9-20); Calcium 9.3 mg/dl (8.4-10.2); Carbon Dioxide 22 mmol/L (22-30); Chloride 99 mmol/L (98-107); Estimated Creatinine Clearance 94 ml/min; Glucose 140 mg/dl (70-99); Magnesium 1.8 mg/dl (1.6-2.3); Phosphorus 4.8 mg/dl (2.5-4.5); Sodium 136 mmol/L (135-145); eGFR > 60.00
--- NOTE | 2024-04-21 08:31 | W.PN.CD ---
Today's Communication / Plan
-
Hold warfarin.
CTA abdomen/pelvis.
No Vitamin K.
Impression / Plan
-
Impression/Plan: 74 y/o male with HTN, HLD, mechanical AVR and CAD s/p CABG (DE [place] SANTOS to LAD, sequential SVG to OM2 to RPDA) admitted with NSTEMI.
#NSTEMI/CAD
-Acute on chronic.
-Troponin peaked at 5.00.
-s/p PCI (Medtronic [place] 2.75 x 26 ELLIOTT, post dilated with 2.75 NC balloon), 04/18/2024.
-Antithrombotic therapy with clopidogrel and warfarin.
-Continue atorvastatin, lisinopril, metoprolol, ezetimibe.
#Groin ecchymosis
-Acute since cardiac catheterization.
-RCFA sealed with 6Fr angioseal.
-Groin ultrasound shows soft tissue edema, no hematoma/pseudoaneurysm.
-Hemoglobin is stable.
-Renal function normal. CTA of abdomen/pelvis to r/o vascular complication.
-Hold warfarin (ok if INR dips below 2.0 in the setting of a bleeding complication). I suspect that this is all due to slow ooze from high INR rather than a discrete vascular complication.
#HTN
-Chronic, stable.
-Continue lisinopril, metoprolol.
#HLD
-Chronic, stable.
-Intolerant to rosuvastatin and simvastatin, which caused myalgias.
-Tolerating atorvastatin/ezetimibe.
-Goal LDL < 55 (currently).
#Mechanical AVR
-Chronic, stable on echo.
-Goal INR 2.5-3.0.
-Hold warfarin today in light of ecchymosis.
#DM
-Chronic, mildly uncontrolled.
-HbA1c = 7.5% from 04/17/24.
-Per hospitalist.
Subjective/Interval History:
The patient has had oozing/ecchymosis of the right femoral access site.
Pressure held at multiple times.
US shows soft tissue edema/no pseudoaneurysm.
H/H stable.
BP stable.
INR 3.55.
DATA:
Cardiac Catheterization/PCI, 04/18/2024:
CONCLUSIONS
1. Right dominant circulation with chronic total occlusion of the ostial RCA, moderate, diffuse disease throughout the body of the left main, a chronic total occlusion of the circumflex at its ostium and 80-90% lesion in the proximal LAD spanning
the origin of D1 as well as an 80% lesion in the mid LAD spanning the origin of D2 at the anastomosis site, status post prior three-vessel CABG (patent [place] SANTOS to mid LAD, patent sequential SVG to OM 2 to RPDA), status post successful PCI of the hazy,
80% mid LAD lesion via the DE [place] SANTOS graft (Medtronic Denis [place] 2.75 x 26 ELLIOTT, postdilated with a 2.75 NC balloon) with reduction in stenosis to 0%, maintaining REINALDO-3 flow.
2. Status post prior mechanical aortic valve replacement.
TTE, 04/18/2024:
CONCLUSIONS
Mildly depressed left ventricular systolic function with regional wall motion
abnormality.
Left ventricular ejection fraction is 45-50% by visual assessment.
The basal inferolateral wall is at least moderately hypokinetic.
Normal right ventricular systolic function.
Thickened mitral valve leaflets.
Mean gradient is 4mmHg.
Peak/mean gradients are 11/5mmHg.
No aortic regurgitation is seen.
Normally functioning mechanical, prosthetic aortic valve.
Peak/mean gradients are 11/5mmHg.
Trace pulmonic regurgitation.
The IVC is of normal size and demonstrates normal respiratory variation.
Compared to 05/2023 echo there is new regional wall motion abnormality and EF%
is mildly depressed. It is noted that cardiac catheterization is planned.
Groin US, 04/20/2024:
IMPRESSION:
Soft tissue edema within the right groin.
No hematoma or pseudoaneurysm.
Physical Exam
Vital Signs/Labs
Vital Signs
Temp Pulse Resp BP Pulse Ox
36.4 C 65 16 131/75 97
04/21/24 07:48 04/21/24 07:48 04/21/24 07:48 04/21/24 07:48 04/21/24 07:48
04/19/24 04/20/24 04/21/24
11:59 11:59 11:59
Actual Weight 97 kg
04/21/24 04:02
04/21/24 04:02
PT 35.5 Sec (11.4-14.6) H 04/21/24 04:02
INR 3.55 04/21/24 04:02
APTT Cancelled 04/18/24 07:02
Magnesium 1.8 mg/dl (1.6-2.3) 04/21/24 04:02
Triglycerides 106 mg/dl (10-149) 04/18/24 15:29
LDL Cholesterol, Calc 54 mg/dl 04/18/24 15:29
VLDL Cholesterol, Calc 21 mg/dl (0-30) 04/18/24 15:29
HDL Cholesterol 39 mg/dl 04/18/24 15:29
LAB Results
04/18/24 04/18/24 04/18/24
09:17 15:29 21:25
Troponin I 0.067 H* D 1.190 H* D 3.700 H* D
04/19/24 04/19/24
03:42 10:15
Troponin I 5.000 H* D 4.130 H*
Physical Exam
Constitutional: No acute distress and Comfortable
EENT: Anicteric and Moist mucous membranes
Cardiovascular: Rhythm & rate is regular, Pedal edema is absent, JVD pressure is normal, S1S2 is normal (S2 is crisp and mechanical.) and Murmur/rub/gallop absent
Respiratory: Respiratory effort normal, Lungs clear to auscul., Wheeze Absent, Crackles Absent and Rhonchi Absent
GI: Soft, Distention absent, Flat, Non tender and Normal bowel sounds
Neuro/Psych: AO x 3
Other: Cath Site (Right femoral access site is ecchymotic but soft.)
Data Reviewed
-
Date of Service: April 21, 2024
Medical Decision Making: Reviewed Test Results, Independent Historian Assessment and Test Interpretation
EKG: Tracing Personally Visualized and interpreted and Report Reviewed by me
Echo: Tracing Personally Visualized and interpreted and Report Reviewed by me
X-Ray/CT/US/MRI/NUC/PET: Image Personally Visualized and interpreted and Report Reviewed by me
Medical Tests (PFT, Pathology etc): Image Personally Visualized and interpreted and Report Reviewed by me
Labs: Labs Reviewed by me
Old Records: Reviewed
[2024-04-21] MEDS: ZESTRIL 2.5 MG PO (09:19)
[2024-04-21] MEDS: THERAGRAN 1 TABLET PO (09:20)
[2024-04-21] MEDS: MIRALAX 17 GRAMS PO (09:20)
[2024-04-21] MEDS: PLAVIX 75 MG PO (09:20)
[2024-04-21] MEDS: TOPROL XL 25 MG PO (09:20)
[2024-04-21] MEDS: SENOKOT-S 1 TABLET PO ×2 (09:20→20:32)
--- NOTE | 2024-04-21 09:51 | PTCARENOTE ---
received patient this am, assessed right groin , hardened, tender, purple, distal pulse audible by doppler. Dr. Eli aware, CT scan ordered.
--- NOTE | 2024-04-21 10:48 | PTCARENOTE ---
called down to CT scan and asked if INT #18 in right forearm and INT # 20 in left forearm was good or does he need an INT in antecubital, the person on the phone stated that they were good. patient to CT scan via stretcher accompanied by tera.
services.
--- NOTE | 2024-04-21 14:23 | W.PN.HOSP.TC ---
Today's Communication/Plan
-
Discharge tomorrow if cleared by cardiology
Assessment / Plan
Assessment / Plan
74M CAD CABG, mechanical AVR 2008, HTN, HLD, DM, PAT, BPH, p/w chest pain d/t NSTEMI underwent mid LAD stent.
# Unstable angina/NSTEMI status post mid LAD stent
# History of CAD status post CABG in 2008
-Continue Plavix and Coumadin postcatheterization
-S/p heparin and nitroglycerin drip
-Troponin trended to peak 5.000 since trended down
-Continue metoprolol
-Lipid panel appreciated LDL within goal <70, home statin continued
-Discharge when cleared by cardiology
#Right groin ecchymosis
#Right groin hematoma
CTA abdomen and pelvis shows 2 cm hematoma
Groin US appreciated no hematoma or aneurysm
Intermittent ice packs ordered
# History of mechanical aortic valve replacement in 2008
-Goal INR of 2.5-3.0 as per Cardio
-Hold Coumadin for supratherapeutic INR today
Essential hypertension
-Lisinopril started
-Chlorthalidone held
Type 2 diabetes
-A1c appreciated 7.5
-Hold metformin recent cath
-Continue SGLT2 inhibitor
-Sugars consistently well controlled at this time, no need for routine FS since discontinued
Hyperlipidemia
-Continue atorvastatin
-Continue Zetia
Obstructive sleep apnea
-Continue CPAP
BPH
DVT prophylaxis�Coumadin
Full code
Total time spent to see the patient on the floor, examine the patient, review data and lab results, discuss treatment plan with patient, nursing staff around 35 minutes.
Physical Exam
General: Well Developed, Well Nourished and No Apparent Distress
HEENT: NormoCephalic, Moist mucous membranes and Atraumatic
Respiratory: Clear
Cardiac: S1/S2 and Regular Rhythm; No Murmur or Rub
GI: Soft, Non Tender, Non Distended and Normal Bowel Sounds; No Organomegaly
Musculoskeletal: No Clubbing, No Cyanosis and No Edema
Skin: right groin ecchymosis swelling tenderness noted
Neuro: Awake alert conversant coherent
Anticipated Discharge: Within 24 hours
Subjective/Interval History
-
Date of Service: April 21, 2024
Patient reports his right groin pain is improved. No chest pain, no shortness of breath. No fever, no vomiting.
Objective Data
-
Labs:
Laboratory Results
04/21/24
04:02
WBC 11.3 H
Hgb 14.0
Hct 40.4
Plt Count 247
PT 35.5 H
INR 3.55
Sodium 136
Potassium 4.0
Chloride 99
Carbon Dioxide 22
BUN 24 H
Creatinine 0.8
Glucose 140 H
Calcium 9.3
Vital Signs:
Vital Signs
Temp Pulse Resp BP Pulse Ox
97.6 F 65 16 131/75 97
04/21/24 07:48 04/21/24 07:48 04/21/24 07:48 04/21/24 07:48 04/21/24 07:48
I&O
04/20/24 04/21/24 04/22/24
06:59 06:59 06:59
Intake Total 480 / 480
Output Total 400 / 400
Balance 80 / 80
--- NOTE | 2024-04-21 15:55 | CM ---
dc plans remain home when medically stable.
[2024-04-21] MEDS: LIPITOR 40 MG PO (17:27)
[2024-04-21] MEDS: VITAMIN B-12 1000 MCG PO (17:27)
[2024-04-21] MEDS: VITAMIN D3 (cholecalciferol) 25 MCG PO (17:27)
[2024-04-21] MEDS: ZETIA 10 MG PO (17:28)
[2024-04-21] MEDS: FARXIGA 10 MG PO (17:28)
[2024-04-22 04:06] VITALS: BP 117/65
[2024-04-22 04:48] LABS: Hematocrit 42.7 % (39.0-52.0); Hemoglobin 14.6 g/dL (13.0-18.0); Mean Corp Hgb Conc. 34.2 g/dL (33.0-37.0); Mean Corpuscular Volume 87.7 fL (80.0-94.0); Mean Platelet Volume 10.2 fL (7.4-10.4); Platelet Count 267 10^3/uL (130-400); Red Blood Cell Count 4.87 10^6/uL (4.70-6.10); Red Cell Dist. Width 13.5 % (11.5-14.5); White Blood Cell Count 12.4 10^3/uL (4.8-10.8)
[2024-04-22 04:53] LABS: INR 3.63; PT 36.2 Sec (11.4-14.6)
[2024-04-22 05:09] LABS: Blood Urea Nitrogen 23 mg/dl (9-20); Calcium 9.7 mg/dl (8.4-10.2); Carbon Dioxide 23 mmol/L (22-30); Chloride 101 mmol/L (98-107); Estimated Creatinine Clearance 84 ml/min; Glucose 150 mg/dl (70-99); Potassium 4.2 mmol/L (3.5-5.1); Sodium 136 mmol/L (135-145); eGFR > 60.00
[2024-04-22 08:08] VITALS: BP 133/73
--- NOTE | 2024-04-22 08:12 | W.PN.CD ---
Today's Communication / Plan
-
hold warfarin tonight, d/w Dr Eli, ok for just clopidogrel today
home alere INR check tomorrow, will call the office for dosing
Will arrange follow up
can continue with ICE to hematoma for relief of pain
d/w patient and his
Impression / Plan
-
Impression/Plan: 74 y/o male with HTN, HLD, mechanical AVR and CAD s/p CABG (DE LOS SANTOS to LAD, sequential SVG to OM2 to RPDA) admitted with NSTEMI.
#NSTEMI/CAD
-Acute on chronic.
-Troponin peaked at 5.00.
-s/p PCI (Medtronic [place] 2.75 x 26 ELLIOTT, post dilated with 2.75 NC balloon), 04/18/2024.
-Antithrombotic therapy with clopidogrel and warfarin.
-Continue atorvastatin, lisinopril, metoprolol, ezetimibe.
#Groin ecchymosis
-Acute since cardiac catheterization.
-improving
-RCFA sealed with 6Fr angioseal.
-Groin ultrasound shows soft tissue edema, no hematoma/pseudoaneurysm.---> CT Abd/Pelvis to centimeter hematoma without evidence of pseudoaneurysm
-Hemoglobin is stable.
-Renal function normal. CTA of abdomen/pelvis to r/o vascular complication.
-Hold warfarin (ok if INR dips below 2.0 in the setting of a bleeding complication). Per Dr. Eli�'I suspect that this is all due to slow ooze from high INR rather than a discrete vascular complication. '
#HTN
-Chronic, stable.
-Continue lisinopril, metoprolol.
#HLD
-Chronic, stable.
-Intolerant to rosuvastatin and simvastatin, which caused myalgias.
-Tolerating atorvastatin/ezetimibe.
-Goal LDL < 55 (currently).
#Mechanical AVR
-Chronic, stable on echo.
-Goal INR 2.5-3.0.
-INR still greater than 3.5, will hold warfarin today.
-he has a home Alere system, will have him do an INR tomorrow morning and call the office for dosing.
#DM
-Chronic, mildly uncontrolled.
-HbA1c = 7.5% from 04/17/24.
-Per hospitalist.
Subjective/Interval History:
he is feeling well, hematoma helped with ice. no PA on CT. Hg stable
DATA:
Cardiac Catheterization/PCI, 04/18/2024:
CONCLUSIONS
1. Right dominant circulation with chronic total occlusion of the ostial RCA, moderate, diffuse disease throughout the body of the left main, a chronic total occlusion of the circumflex at its ostium and 80-90% lesion in the proximal LAD spanning
the origin of D1 as well as an 80% lesion in the mid LAD spanning the origin of D2 at the anastomosis site, status post prior three-vessel CABG (patent DE [place] SANTOS to mid LAD, patent sequential SVG to OM 2 to RPDA), status post successful PCI of the hazy,
80% mid LAD lesion via the DE [place] SANTOS graft ([employer]tronic [place] 2.75 x 26 ELLIOTT, postdilated with a 2.75 NC balloon) with reduction in stenosis to 0%, maintaining REINALDO-3 flow.
2. Status post prior mechanical aortic valve replacement.
TTE, 04/18/2024:
CONCLUSIONS
Mildly depressed left ventricular systolic function with regional wall motion
abnormality.
Left ventricular ejection fraction is 45-50% by visual assessment.
The basal inferolateral wall is at least moderately hypokinetic.
Normal right ventricular systolic function.
Thickened mitral valve leaflets.
Mean gradient is 4mmHg.
Peak/mean gradients are 11/5mmHg.
No aortic regurgitation is seen.
Normally functioning mechanical, prosthetic aortic valve.
Peak/mean gradients are 11/5mmHg.
Trace pulmonic regurgitation.
The IVC is of normal size and demonstrates normal respiratory variation.
Compared to 05/2023 echo there is new regional wall motion abnormality and EF%
is mildly depressed. It is noted that cardiac catheterization is planned.
Groin US, 04/20/2024:
IMPRESSION:
Soft tissue edema within the right groin.
No hematoma or pseudoaneurysm.
Physical Exam
Vital Signs/Labs
Vital Signs
Temp Pulse Resp BP Pulse Ox
98.1 F 62 17 117/65 96
04/22/24 04:04 04/22/24 06:00 04/22/24 04:04 04/22/24 04:06 04/22/24 04:06
04/22/24 04:14
04/22/24 04:14
PT 36.2 Sec (11.4-14.6) H 04/22/24 04:14
INR 3.63 04/22/24 04:14
APTT Cancelled 04/18/24 07:02
Magnesium 1.8 mg/dl (1.6-2.3) 04/21/24 04:02
Triglycerides 106 mg/dl (10-149) 04/18/24 15:29
LDL Cholesterol, Calc 54 mg/dl 04/18/24 15:29
VLDL Cholesterol, Calc 21 mg/dl (0-30) 04/18/24 15:29
HDL Cholesterol 39 mg/dl 04/18/24 15:29
LAB Results
04/19/24
10:15
Troponin I 4.130 H*
Physical Exam
Constitutional: No acute distress
Cardiovascular: Rhythm & rate is regular, JVD pressure is normal, Diastolic murmur absent and Rhythm/rate is irregular
Respiratory: Respiratory effort normal, Lungs clear to auscul., Wheeze Absent, Crackles Absent and Rhonchi Absent
Neuro/Psych: AO x 3
Other: Cath Site (Right groin wth ~ 2 cm hematoma and superficial ecchymosis)
Data Reviewed
-
Date of Service: April 22, 2024
Medical Decision Making: Review of Case with other Provider (D/w Dr Eli who did his cath and Dr Bar re discharge plan)
[2024-04-22] MEDS: TOPROL XL 25 MG PO (08:17)
[2024-04-22] MEDS: MIRALAX PO ×2 (08:18→08:20)
[2024-04-22] MEDS: PLAVIX 75 MG PO (08:18)
[2024-04-22] MEDS: ZESTRIL 2.5 MG PO (08:18)
[2024-04-22] MEDS: THERAGRAN 1 TABLET PO (08:18)
[2024-04-22] MEDS: SENOKOT-S 1 TABLET PO (08:18)
--- NOTE | 2024-04-22 09:23 | W.PN.HOSP.TC ---
Today's Communication/Plan
-
Cleared by cardiology for discharge today
Assessment / Plan
Assessment / Plan
74M CAD CABG, mechanical AVR 2008, HTN, HLD, DM, PAT, BPH, p/w chest pain d/t NSTEMI underwent mid LAD stent.
# Unstable angina/NSTEMI status post mid LAD stent
# History of CAD status post CABG in 2008
-Continue Plavix and Coumadin postcatheterization
-S/p heparin and nitroglycerin drip
-Troponin trended to peak 5.000 since trended down
-Continue metoprolol
-Lipid panel appreciated LDL within goal <70, home statin continued
-Cleared by cardiology for discharge today
#Right groin ecchymosis
#Right groin hematoma
CTA abdomen and pelvis shows 2 cm hematoma
Groin US appreciated no hematoma or aneurysm
Intermittent ice packs ordered
# History of mechanical aortic valve replacement in 2008
-Goal INR of 2.5-3.0 as per Cardio
-Hold Coumadin for supratherapeutic INR today
-Patient to check his INR at home tomorrow, and call cardiology clinic for instructions on Coumadin dosing
Essential hypertension
-Lisinopril started
-Chlorthalidone stopped
Type 2 diabetes
-A1c appreciated 7.5
-Hold metformin recent cath - resume upon dc
-Continue SGLT2 inhibitor
-Sugars consistently well controlled at this time, no need for routine FS since discontinued
Hyperlipidemia
-Continue atorvastatin
-Continue Zetia
Obstructive sleep apnea
-Continue CPAP
BPH
DVT prophylaxis�Coumadin
Full code
Updated at bedside 04/22
Physical Exam
General: Well Developed, Well Nourished and No Apparent Distress
HEENT: NormoCephalic, Moist mucous membranes and Atraumatic
Respiratory: Clear
Cardiac: S1/S2 and Regular Rhythm; No Murmur or Rub
GI: Soft, Non Tender, Non Distended and Normal Bowel Sounds; No Organomegaly
Musculoskeletal: No Clubbing, No Cyanosis and No Edema
Skin: right groin ecchymosis swelling tenderness noted
Neuro: Awake alert conversant coherent
Anticipated Discharge: Today
Subjective/Interval History
-
Date of Service: April 22, 2024
Patient reports his right groin pain is mild. No chest pain, no shortness of breath. No fever, no vomiting.
Objective Data
-
Labs:
Laboratory Results
04/22/24
04:14
WBC 12.4 H
Hgb 14.6
Hct 42.7
Plt Count 267
PT 36.2 H
INR 3.63
Sodium 136
Potassium 4.2
Chloride 101
Carbon Dioxide 23
BUN 23 H
Creatinine 0.9
Glucose 150 H
Calcium 9.7
Vital Signs:
Vital Signs
Temp Pulse Resp BP Pulse Ox
97.7 F 64 18 133/73 98
04/22/24 08:12 04/22/24 08:08 04/22/24 08:12 04/22/24 08:08 04/22/24 08:12
I&O
04/21/24 04/22/24 04/23/24
06:59 06:59 06:59
Intake Total 480 / 480 480 / 480
Output Total 400 / 400
Balance 80 / 80 480 / 480
--- NOTE | 2024-04-22 09:29 | W.DCSUMMARY ---
Discharge Summary
Discharge Data
Date of Admission: 04/19/24
Date of Discharge: 04/22/24
-
Pending Results: No
Hospital Course
Discharge diagnosis:
Unstable angina/myocardial infarction
Coronary artery disease
Right groin ecchymosis/hematoma
History of mechanical aortic valve replacement
Supratherapeutic INR
Essential hypertension
Type 2 diabetes
Hyperlipidemia
Obstructive sleep apnea
Benign prostatic hypertrophy
Consults: Cardiology
04/18/2024 cardiac catheterization
1. Right dominant circulation with chronic total occlusion of the ostial RCA, moderate, diffuse disease throughout the body of the left main, a chronic total occlusion of the circumflex at its ostium and 80-90% lesion in the proximal LAD spanning
the origin of D1 as well as an 80% lesion in the mid LAD spanning the origin of D2 at the anastomosis site, status post prior three-vessel CABG (patent DE LOS SANTOS to mid LAD, patent sequential SVG to OM 2 to RPDA), status post successful PCI of the hazy,
80% mid LAD lesion via the DE LOS SANTOS graft ([employer] Denis Canadian 2.75 x 26 ELLIOTT, postdilated with a 2.75 NC balloon) with reduction in stenosis to 0%, maintaining REINALDO-3 flow.
2. Status post prior mechanical aortic valve replacement.
Hospital course:
74-year-old male with a past medical history of CAD s/p CABG 2008, mechanical AVR 2008, HTN, HLD, DM, PAT on CPAP and PAD was admitted for chest pain secondary to NSTEMI. Patient was treated with IV heparin drip and IV nitroglycerin drip. He was
seen in conjunction with cardiology, and underwent cardiac catheterization on 04/18/2024. He had a stent placed to the LAD. Cardiology recommends Plavix, and to continue his Coumadin.
Patient was started on lisinopril 2.5 mg daily. He is continued on metoprolol succinate 25 mg daily. Since he was started on lisinopril, his chlorthalidone was discontinued.
Patient did develop a right groin hematoma from his cardiac catheterization. Ultrasound and abdomen/pelvis CTA were negative for aneurysm or active bleed. His hemoglobin was monitored, and remained normal. He can use ice packs and Tylenol as
needed for the pain.
He has a history of a mechanical aortic valve replacement. His goal INR is 2.5-3.0. His INR was supratherapeutic on the day of discharge. Cardiology recommends that he hold his Coumadin on the day of discharge 04/22/2024. He can recheck his INR
at home on 04/23/2024, and call cardiology with the results for further instructions.
Patient is medically stable and cleared by cardiology for discharge. He needs to follow-up with cardiology in the office as directed, and his primary care doctor in 1 week.
Disposition: Home self-care
Discharge planning: Required 43 minutes
Discharge Plan
-
Patient Disposition: Home (Routine Discharge)
Discharge Diagnosis/Procedures: Myocardial infarction treated with angioplasty and stent to Left Anterior Descending artery, mechanical aortic valve, supratherapeutic INR, right groin ecchymosis, controlled type 2 diabetes
Condition: Good
Diet: Low Fat, Low Cholesterol and Diabetic, Carb Controlled
Activity: As tolerated
Driving Restrictions: As prior to admission
Other Services: Cardiac Rehab
Activity Restrictions/Additional Instructions:
Cardiology recommends holding your warfarin tonight, 04/22.
Check your INR at home tomorrow, 04/23.
Call cardiology office for dosing instructions.
Continue ice application to the right groin for 15 minutes every 2 hours as needed for pain relief.
Stand Alone Forms: DC Instructions- Cath/EP Lab
Referrals:
Kyrie Asher MD [Family Provider] - in one week
Taryn Martin CRNP [Specified Professional Personl] - 05/07/24 10:40 am
(Cardiology followup appointment
This is at [facility])
Additional Discharge Medication Instructions: STOP aspirin, Call [phone] with INR home check in am
Prescriptions:
New
clopidogrel 75 mg Tablet
75 mg PO DAILY Qty: 30 0RF
metoprolol succinate 25 mg Tablet Extended Release 24 Hr
25 mg PO DAILY Qty: 30 0RF
lisinopril 2.5 mg Tablet
2.5 mg PO DAILY Qty: 30 0RF
Continued
metformin 500 MG tablet
1,000 mg PO BID@0800,1700
warfarin [Jantoven] 5 MG tablet
10 mg PO SUMOSA@1800
coenzyme [id number] [Co Q-10 (with Vit E)] 1 EACH capsule
1 ea PO HS
cyanocobalamin (vitamin B-12) 1,000 MCG tablet
1,000 mcg PO QPM
acetaminophen [Tylenol Extra Strength] 500 MG tablet
1,000 mg PO Q6HPRN PRN (Reason: mild pain)
cholecalciferol (vitamin D3) 1,000 UNITS tablet
1,000 units PO QPM
therapeutic multivitamin Tablet
1 tab PO DAILY
fluticasone propionate 50 mcg/actuation Johnston,Suspension
2 spray INTRANASAL BID
ezetimibe [Zetia] 10 mg Tablet
10 mg PO QPM
Jardiance 25 mg Tablet
25 mg PO QPM
Trulicity 4.5 mg/0.5 mL Pen Injector
4.5 mg SC BAL
atorvastatin 40 mg Tablet
40 mg PO QPM
Held
warfarin 5 mg Tablet
10 mg PO TUWETHFR@1800
Hold Instructions: Resume on 04/23/24.
Discontinued
aspirin 81 MG tablet,delayed release (DR/EC)
81 mg PO DAILY
chlorthalidone 25 MG tablet
25 mg PO DAILY
metoprolol tartrate 12.5 MG tablet
12.5 mg PO BID
Discharge Orders:
Discharge Patient (As Directed); Ordered 04/22/24
Ordered By: Adrian Do
Care Plan Goals
Care Plan Goals:
Problem: Readiness for enhanced knowledge related to diagnosis and treatment plan
Goal: Understand your diagnosis and treatment plan needs, including medications if applicable.
Instructions: Know your diagnosis, underlying causes and treatment plan options, including medications if applicable. Consult with your health care team to learn about your diagnosis and treatment plan, including medications if applicable.
Discharge Date and Time
Discharge Date/Time: 04/22/24 11:20
Print Language: TRISTANIAN
--- NOTE | 2024-04-22 11:23 | PTCARENOTE ---
[facility] to home[facility] today. Discharge teaching completed, patient verbalized understanding.
== END 2024-04-22 11:20 | disposition home or self-care (01) | DRG 322 ==
LOC: IVU 08:29
PROVIDERS: Internal Medicine; Internal Medicine Cardiovascular Disease; Nurse Practitioner; ADMITTING PHYSICIAN Hospitalist; ATTENDING PHYSICIAN Family Medicine; EMERGENCY PHYSICIAN Emergency Medicine; FAMILY PHYSICIAN Family Medicine; OTHER PHYSICIAN Internal Medicine
PROC: B2111ZZ Fluoroscopy of Multiple Coronary Arteries using Low Osmolar Contrast (ICD-10-PCS; 2024-04-18)
PROC: B2131ZZ Fluoroscopy of Multiple Coronary Artery Bypass Grafts using Low Osmolar Contrast (ICD-10-PCS; 2024-04-18)
PROC: 027034Z Dilation of Coronary Artery, One Artery with Drug-eluting Intraluminal Device, Percutaneous Approach (ICD-10-PCS; 2024-04-18)
DX: I21.4 Non-ST elevation (NSTEMI) myocardial infarction (principal); E11.9 Type 2 diabetes mellitus without complications; Z95.2 Presence of prosthetic heart valve; I10 Essential (primary) hypertension; I65.23 Occlusion and stenosis of bilateral carotid arteries; I25.10 Atherosclerotic heart disease of native coronary artery without angina pectoris; Z95.1 Presence of aortocoronary bypass graft; E78.00 Pure hypercholesterolemia, unspecified; G47.33 Obstructive sleep apnea (adult) (pediatric); N40.0 Benign prostatic hyperplasia without lower urinary tract symptoms; K21.9 Gastro-esophageal reflux disease without esophagitis; Z79.01 Long term (current) use of anticoagulants; Z79.02 Long term (current) use of antithrombotics/antiplatelets; Z79.82 Long term (current) use of aspirin; Z79.84 Long term (current) use of oral hypoglycemic drugs; Z79.899 Other long term (current) drug therapy; Z87.19 Personal history of other diseases of the digestive system; Z88.1 Allergy status to other antibiotic agents; Z82.49 Family history of ischemic heart disease and other diseases of the circulatory system
CPT/HCPCS: 71045; 74174; 80048; 80053; 80061; 82962; 83735; 84100; 84484; 85025; 85027; 85347; 85610; 93005; 93306; 93459; 93926; 96365; 96366; 96367; 99291; C1725; C1760; C1874; C1887; C1894; C9604; Q9967

== ENCOUNTER 2024-05-26 15:30 | Outpatient (RCR) | payer OTHER, SELFPAY ==
[2024-05-26 14:30] LABS: Glucose - Point of Care 122 mg/dl (70-99)
[2024-05-26 15:14] LABS: Glucose - Point of Care 89 mg/dl (70-99)
== END 2024-05-26 23:59 | disposition home or self-care (01) ==
LOC: CRHB 15:30
PROVIDERS: ATTENDING PHYSICIAN Internal Medicine Cardiovascular Disease
DX: I21.4 Non-ST elevation (NSTEMI) myocardial infarction (principal); Z95.5 Presence of coronary angioplasty implant and graft
CPT/HCPCS: 82962; G0422; G0423

== ENCOUNTER → 2024-06-19 08:45 | Outpatient (REF) | payer OTHER, SELFPAY | LOC: DHVS 08:45 | PROVIDERS: ATTENDING PHYSICIAN Surgery Vascular Surgery; FAMILY PHYSICIAN Family Medicine | DX: I65.23 Occlusion and stenosis of bilateral carotid arteries (principal); I73.9 Peripheral vascular disease, unspecified | CPT/HCPCS: 93880; 93922; 93925 ==

== ENCOUNTER 2024-07-01 08:40 | Outpatient (RCR) | payer OTHER, SELFPAY ==
[2024-06-03 08:43] LABS: Glucose - Point of Care 146 mg/dl (70-99)
[2024-06-03 09:43] LABS: Glucose - Point of Care 87 mg/dl (70-99)
[2024-06-05 08:34] LABS: Glucose - Point of Care 168 mg/dl (70-99)
[2024-06-05 09:35] LABS: Glucose - Point of Care 92 mg/dl (70-99)
[2024-06-10 08:36] LABS: Glucose - Point of Care 148 mg/dl (70-99)
[2024-06-10 09:39] LABS: Glucose - Point of Care 117 mg/dl (70-99)
[2024-06-12 08:38] LABS: Glucose - Point of Care 190 mg/dl (70-99)
[2024-06-12 09:39] LABS: Glucose - Point of Care 81 mg/dl (70-99)
[2024-06-17 08:33] LABS: Glucose - Point of Care 132 mg/dl (70-99)
[2024-06-17 09:38] LABS: Glucose - Point of Care 88 mg/dl (70-99)
== END 2024-07-01 23:59 | disposition home or self-care (01) ==
LOC: CRHB 08:40
PROVIDERS: ATTENDING PHYSICIAN Internal Medicine Cardiovascular Disease; FAMILY PHYSICIAN Family Medicine
DX: I25.2 Old myocardial infarction (principal); I25.10 Atherosclerotic heart disease of native coronary artery without angina pectoris; Z95.5 Presence of coronary angioplasty implant and graft
CPT/HCPCS: 82962; G0422; G0423

== ENCOUNTER → 2024-07-04 08:34 | Outpatient (REF) | payer OTHER, SELFPAY ==
[2024-07-04 09:34] LABS: % Basophils 0.5 % (0-2); % Eosinophils 1.9 % (0-6); % Immature Granulocytes 0.4 % (0-0.5); % Lymphocytes 23.9 % (20.5-51.1); % Monocytes 7.8 % (1.7-9.3); % Neutrophils 65.5 % (42.2-75.2); Absolute Eosinophils 0.2 10^3/uL (0-0.7); Absolute Monocytes 0.7 10^3/uL (0.1-0.6); Absolute Neutrophils 5.6 10^3/uL (1.4-6.5); Hematocrit 48.7 % (39.0-52.0); Hemoglobin 15.7 g/dL (13.0-18.0); Mean Corp Hgb Conc. 32.2 g/dL (33.0-37.0); Mean Corpuscular Hgb 29.3 pg (27.0-31.0); Mean Corpuscular Volume 90.9 fL (80.0-94.0); Mean Platelet Volume 10.1 fL (7.4-10.4); Nucleated Red Blood Cells % 0 % (-); Platelet Count 245 10^3/uL (130-400); Red Blood Cell Count 5.36 10^6/uL (4.70-6.10); Red Cell Dist. Width 13.4 % (11.5-14.5); White Blood Cell Count 8.5 10^3/uL (4.8-10.8)
[2024-07-04 10:38] LABS: PSA, Total - Screen 0.67 ng/ml (0.0-4.0); TSH 1.45 uIU/ml (0.47-4.68)
[2024-07-04 11:32] LABS: ALT (SGPT) 18 U/L (0-50); AST (SGOT) 29 U/L (17-59); Albumin 4.5 g/dl (3.5-5.0); Alkaline Phosphatase 70 U/L (38-126); Blood Urea Nitrogen 15 mg/dl (9-20); Calcium 9.6 mg/dl (8.4-10.2); Carbon Dioxide 19 mmol/L (22-30); Chloride 104 mmol/L (98-107); Glucose 115 mg/dl (70-99); HDL Cholesterol 42 mg/dl; LDL Cholesterol, Calculated 46 mg/dl; Potassium 4.5 mmol/L (3.5-5.1); Sodium 136 mmol/L (135-145); Total Bilirubin 0.8 mg/dl (0.2-1.3); Total Cholesterol 118 mg/dl (50-199); Total Protein 7.3 g/dl (6.3-8.2); Triglyceride 152 mg/dl (10-149); Very Low Density Lipoprotein 30 mg/dl (0-30); eGFR > 60.00
== END ==
LOC: HWLAB 08:34
PROVIDERS: ATTENDING PHYSICIAN Family Medicine
DX: I10 Essential (primary) hypertension (principal); Z68.30 Body mass index [BMI] 30.0-30.9, adult; E11.65 Type 2 diabetes mellitus with hyperglycemia; E11.9 Type 2 diabetes mellitus without complications
CPT/HCPCS: 36415; 80053; 80061; 84443; 85025; G0103

== ENCOUNTER 2024-07-29 08:36 | Outpatient (RCR) | payer OTHER, SELFPAY | END 2024-07-29 23:59 | disposition home or self-care (01) | LOC: CRHB 08:36 | PROVIDERS: ATTENDING PHYSICIAN Internal Medicine Cardiovascular Disease; FAMILY PHYSICIAN Family Medicine | DX: I25.2 Old myocardial infarction (principal); Z95.5 Presence of coronary angioplasty implant and graft; I25.10 Atherosclerotic heart disease of native coronary artery without angina pectoris | CPT/HCPCS: G0422; G0423 ==

== ENCOUNTER → 2024-08-04 07:23 | Outpatient (REF) | payer OTHER, SELFPAY | LOC: RCS 07:23 | PROVIDERS: ATTENDING PHYSICIAN Internal Medicine Cardiovascular Disease; FAMILY PHYSICIAN Family Medicine | DX: I20.9 Angina pectoris, unspecified (principal) | CPT/HCPCS: 78452; 93017; A9500 ==

== ENCOUNTER → 2024-08-05 09:28 | Outpatient (REF) | payer OTHER, SELFPAY ==
[2024-08-05 11:17] LABS: % Basophils 0.4 % (0-2); % Eosinophils 1.5 % (0-6); % Immature Granulocytes 0.3 % (0-0.5); % Lymphocytes 22.2 % (20.5-51.1); % Monocytes 8.5 % (1.7-9.3); % Neutrophils 67.1 % (42.2-75.2); Absolute Eosinophils 0.1 10^3/uL (0-0.7); Absolute Lymphocytes 2.1 10^3/uL (1.2-3.4); Absolute Monocytes 0.8 10^3/uL (0.1-0.6); Absolute Neutrophils 6.2 10^3/uL (1.4-6.5); Hematocrit 49.3 % (39.0-52.0); Hemoglobin 16.1 g/dL (13.0-18.0); Mean Corp Hgb Conc. 32.7 g/dL (33.0-37.0); Mean Corpuscular Volume 88.7 fL (80.0-94.0); Mean Platelet Volume 10.5 fL (7.4-10.4); Nucleated Red Blood Cells % 0 % (-); Platelet Count 242 10^3/uL (130-400); Red Blood Cell Count 5.56 10^6/uL (4.70-6.10); Red Cell Dist. Width 13.8 % (11.5-14.5); White Blood Cell Count 9.3 10^3/uL (4.8-10.8)
[2024-08-05 11:57] LABS: ALT (SGPT) 41 U/L (0-50); AST (SGOT) 42 U/L (17-59); Albumin 4.7 g/dl (3.5-5.0); Alkaline Phosphatase 82 U/L (38-126); Blood Urea Nitrogen 18 mg/dl (9-20); Calcium 9.2 mg/dl (8.4-10.2); Carbon Dioxide 20 mmol/L (22-30); Chloride 104 mmol/L (98-107); Glucose 133 mg/dl (70-99); Potassium 4.7 mmol/L (3.5-5.1); Sodium 136 mmol/L (135-145); Total Bilirubin 0.8 mg/dl (0.2-1.3); Total Protein 7.6 g/dl (6.3-8.2); eGFR > 60.00
== END ==
LOC: HWLAB 09:28
PROVIDERS: ATTENDING PHYSICIAN Internal Medicine Cardiovascular Disease; FAMILY PHYSICIAN Family Medicine
DX: I10 Essential (primary) hypertension (principal); Z95.2 Presence of prosthetic heart valve; E11.9 Type 2 diabetes mellitus without complications; I48.0 Paroxysmal atrial fibrillation; R25.1 Tremor, unspecified; I65.23 Occlusion and stenosis of bilateral carotid arteries; I73.9 Peripheral vascular disease, unspecified; R53.83 Other fatigue
CPT/HCPCS: 36415; 80053; 85025

== ENCOUNTER 2024-08-13 17:48 | Inpatient (IN) | payer OTHER, SELFPAY ==
[2024-08-13 06:34] VITALS: BMI 29.0
[2024-08-13 06:39] VITALS: BMI 28.3
[2024-08-13 06:52] VITALS: BP 143/79
[2024-08-13 07:16] LABS: Glucose - Point of Care 130 mg/dl (70-99)
[2024-08-13 07:23] LABS: INR 2.01; PT 22.9 Sec (11.4-14.6)
[2024-08-13] MEDS: LOW STRENGTH ASPIRIN 81 MG PO (07:25)
[2024-08-13] MEDS: NSS 272 ML IV (07:27)
[2024-08-13 09:21] LABS: ACT-LR - POC 397 Seconds (116-155)
[2024-08-13 09:49] LABS: % Basophils 0.4 % (0-2); % Eosinophils 1.9 % (0-6); % Immature Granulocytes 0.2 % (0-0.5); % Lymphocytes 22.7 % (20.5-51.1); % Monocytes 7.4 % (1.7-9.3); % Neutrophils 67.4 % (42.2-75.2); Absolute Eosinophils 0.2 10^3/uL (0-0.7); Absolute Lymphocytes 2.2 10^3/uL (1.2-3.4); Absolute Monocytes 0.7 10^3/uL (0.1-0.6); Absolute Neutrophils 6.4 10^3/uL (1.4-6.5); Hematocrit 42.4 % (39.0-52.0); Hemoglobin 14.2 g/dL (13.0-18.0); Mean Corp Hgb Conc. 33.5 g/dL (33.0-37.0); Mean Corpuscular Hgb 29.6 pg (27.0-31.0); Mean Corpuscular Volume 88.5 fL (80.0-94.0); Mean Platelet Volume 10.7 fL (7.4-10.4); Nucleated Red Blood Cells % 0 % (-); Platelet Count 191 10^3/uL (130-400); Red Blood Cell Count 4.79 10^6/uL (4.70-6.10); White Blood Cell Count 9.5 10^3/uL (4.8-10.8)
[2024-08-13 10:01] LABS: ALT (SGPT) 39 U/L (0-50); AST (SGOT) 46 U/L (17-59); Albumin 3.3 g/dl (3.5-5.0); Alkaline Phosphatase 86 U/L (38-126); Blood Urea Nitrogen 14 mg/dl (9-20); Calcium 8.2 mg/dl (8.4-10.2); Carbon Dioxide 21 mmol/L (22-30); Chloride 108 mmol/L (98-107); Estimated Creatinine Clearance 99 ml/min; Glucose 137 mg/dl (70-99); Potassium 4.1 mmol/L (3.5-5.1); Sodium 135 mmol/L (135-145); Total Bilirubin 0.8 mg/dl (0.2-1.3); eGFR > 60.00
[2024-08-13 10:04] LABS: INR 2.68; PT 28.9 Sec (11.4-14.6)
--- NOTE | 2024-08-13 10:04 | ITS.CL.ANGIO ---
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
Angioplasty
Procedure Report:
CARDIAC CATHETERIZATION REPORT
Date of Procedure: 08/13/2024
Referring: Greg Aviles M.D.
INDICATION: Known coronary artery disease status post bypass surgery, recent PCI to DE LOS SANTOS/LAD anastomosis (April 2024), recurrent exertional angina and abnormal stress test.
PROCEDURE:
1. Coronary angiography.
2. Bypass angiography.
3. Successful PCI of 80% in-stent restenosis including the distal margin of the stent leading into the poarch vessel.
4. Successful PCI of the 90% proximal stent edge restenosis, complicated by DE LOS SANTOS dissection.
5. Unsuccessful wiring of the poarch LAD.
A total of 101 minutes of procedural/moderate sedation was utilized. An independent medical records coordinator was present to assist with and help manage the patient's level of consciousness and physiologic status.
ACCESS:
1. 6 Vietnamese left common femoral artery using a modified Seldinger technique with a micropuncture kit [under ultrasound guidance. Ultrasound image obtained].
CATHETERS:
1. 5 Vietnamese JL 4.
2. 5 Vietnamese JR4.
3. 6 Vietnamese LUIGI guiding catheter.
4. 6 Vietnamese EBU 4.0 guiding catheter.
HEMODYNAMIC DATA
Weight (kg): 90.3
AO (s/d/x, mmHg): 121/51/77
LV (s/x mmHg): Not obtained.
LEFT VENTRICULOGRAPHY: Not performed.
CORONARY ANGIOGRAPHY
Dominance: Right.
Left Main: Normal size, bifurcating vessel. The vessel is densely calcified and diffusely diseased.
LAD: Normal size vessel giving rise to several small diagonals. The vessel is densely calcified with tandem 70% lesions in the proximal vessel and a chronic total occlusion of the LAD at the mid vessel. The distal vessel supplied by a patent
DE LOS SANTOS graft. There is a patent stent from the DE LOS SANTOS graft into the mid/distal LAD. There is a 90% lesion at the proximal stent margin and an 80% ISR lesion in the distal aspect of the stent with some haziness at the distal stent edge.
Ramus: Congenitally absent.
Circumflex: Normal size, nondominant vessel giving rise to at least 1 obtuse marginal. The vessel is chronically totally occluded at its origin and throughout the entire marginal treat. The obtuse marginal supplied by a patent sequential vein
graft.
RCA: Normal size, dominant vessel. The vessel is chronically totally occluded in its proximal margin, recanalizing in the mid RCA, just proximal to the crux. The vessel is diffusely diseased in its distal margin. There is a patent sequential
vein graft to the RPDA which subsequently backfills the RPL.
BYPASS GRAFT ANGIOGRAPHY
DE LOS SANTOS to LAD: Normal size graft with significant tortuosity and end-to-side anastomosis to the mid LAD. A stent is present from the distal graft into the mid LAD. There is a 90% proximal stent margin lesion. There is an 80% ISR lesion in the
distal third of the stent. There is some haziness at the distal stent margin.
SVG to OM to RPDA: Large size graft with [id number] anastomosis to the obtuse marginal and end-to-side anastomosis to the RPDA. There is no evidence of stenosis or graft degeneration.
INTERVENTION(S)
1. Successful PCI of the mid LAD distal stent edge haziness and 80% ISR lesion (Xience Skypoint 2.25 x 18 ELLIOTT, postdilated with a 2.75 NC balloon and the stent overlap) with reduction in stenosis to 0%, maintaining REINALDO-3 flow.
2. Successful PCI of the 90% DE LOS SANTOS/LAD anastomosis proximal stent edge lesion (Xience Skypoint 3.0 x 28 ELLIOTT, postdilated with a 3.0 NC balloon) with reduction in stenosis to 0%, subsequently complicated by dissection of the DE LOS SANTOS graft after post
dilation.
3. Unsuccessful wiring of the poarch LAD.
Narrative:
The decision was made to proceed with percutaneous coronary intervention. The diagnostic catheter was removed over a wire and a 6Fr LUIGI guiding catheter was advanced to the left subclavian and seated in the DE LOS SANTOS graft. Additional heparin was given
and a Power Turn Flex wire was advanced into the distal DE LOS SANTOS without difficulty. A 6 Vietnamese guide liner was advanced into the DE LOS SANTOS graft over a 2.0 x 12 balloon. This allowed for direct cannulation of the DE LOS SANTOS and more appropriate angiography
given the difficulty of getting the catheter to sit directly in the DE LOS SANTOS graft. The power turn flex wire was advanced into the distal LAD. The 90% proximal stent edge lesion was predilated with a 2.0 x 12 semi-compliant balloon to 12 joceline. We then
advanced the balloon into the distal stent and the 80% ISR lesion was predilated to 12 joceline.
The 2.0 x 12 semicompliant balloon was withdrawn and a 2.75 x 12 semicompliant balloon was advanced. The 80% ISR lesion was dilated to 8 joceline. The edge stenosis lesion was dilated to 12 joceline. The balloon was withdrawn and a 3.0 x 12 noncompliant
balloon was advanced. The 90% stented lesion was dilated to 16 joceline.
The noncompliant balloon was removed and a Xience Skypoint 2.25 x 18 drug-eluting stent was advanced into the LAD. Meticulous care was taken while positioning the stent, ensuring that the distal aspect of the stent was in the poarch LAD, covering
the hazy transition and the proximal margin of the stent adequately covered the 80% ISR lesion. The stent was deployed at 8 atmospheres. The stent balloon was then pulled back so that the distal stent balloon was entirely within the stent overlap.
The stent overlap was then postdilated to 16 joceline. The stent balloon was removed. A 2.75 x 12 noncompliant balloon was advanced into the stent and the stent was postdilated to 12 atmospheres. The opportunity was taken to post dilate the anastomotic
lesion to 16 joceline.
The noncompliant balloon was withdrawn. A Xience Skypoint 3.0 x 28 ELLIOTT was advanced into the DE LOS SANTOS/LAD anastomosis. Meticulous care was taken while positioning the stent, ensuring that the entire anastomotic lesion was covered but extended far back
enough into the DE LOS SANTOS graft to allow for a landing zone. The stent was deployed at 12 joceline. The stent balloon was withdrawn and a 3.0 x 12 noncompliant balloon was advanced. The entire stent length was postdilated to 12 joceline. During her final
inflation, we were deciding whether to post dilate the proximal portion of the stent with a 3.25 or 3.5 NC balloon. There was some tension stored in the catheter. On removal of the balloon, the entire system was pulled back, including the wire.
The balloon was removed. We attempted to rewire the LAD, but found that this was not possible. The wire was observed to curve within the DE LOS SANTOS graft at several points that it was not occurring before. Angiography revealed that there was now a
spiral dissection within the DE LOS SANTOS graft.
The patient remained relatively isoelectric, but he did start to develop 3 out of [address] surgery was called to the bedside. I made several attempts to rewire the DE LOS SANTOS graft in order to secure the dissection. A new power turn flex wire
was advanced without success. A BMW wire with microcatheter support was attempted, but would not enter the true lumen. I reattempted with a whisper wire through the microcatheter, with similar results. Further instrumentation only serve to
propagate the dissection.
We then attempted to open the poarch coronary. The equipment was withdrawn from the DE LOS SANTOS graft. A 6 Vietnamese EBU 4.0 guiding catheter was advanced into the ascending aorta and seated in the left main coronary artery. The whisper wire was advanced
into the mid LAD with microcatheter support. Unfortunately, even with microcatheter support the whisper wire would not advance. The whisper wire was exchanged for a Fielder XT. The Fielder XT would not cross the lesion with microcatheter support.
The Fielder XT was withdrawn and we made a final attempt with a jet pilot 200. Even with an aggressive wire, we could not advance beyond the ENROBER TENDER of the mid LAD.
By this time, the patient did have subtle ST elevations on his telemetry tracing. After further discussion with surgery, the decision was made to proceed to bypass. The surgery team was notified.
The catheters were withdrawn and the 6 Vietnamese femoral sheath was sutured in place.
Closure Device: None. The left femoral 6 Vietnamese sheath was sutured in place.
Radiation (mGy): 2268.19
DAP (cm2.Gy): 166.93
Fluoroscopy time (minutes): 24.9
CONCLUSIONS
1. Right dominant circulation with chronic total occlusion of the RCA, diffusely diseased and calcified left main coronary artery, a chronically totally occluded circumflex and a diffusely diseased proximal LAD with a ENROBER TENDER of the mid LAD status post
prior bypass (DE LOS SANTOS to LAD, sequential SVG to OM to RPDA) with prior PCI of de darrick mid LAD disease in the mid LAD extending into the DE LOS SANTOS anastomosis, now with a 90% stent edge lesion, haziness at the distal stent edge and an 80% ISR lesion in the
distal third of the stent.
2. Status post successful PCI of the distal stent edge haziness and 80% ISR (Xience Skypoint 2.25 x 18 ELLIOTT, postdilated with a 2.75 NC balloon and the stent overlap section) with reduction in stenosis to 0%, maintaining REINALDO-3 flow.
3. Status post successful PCI of the 90% proximal stent edge lesion into the DE LOS SANTOS graft (Xience Skypoint 3.0 x 28 ELLIOTT, postdilated with a 3.0 NC balloon) with reduction in stenosis to 0%, subsequently complicated by spiral dissection of the DE LOS SANTOS
graft.
4. Unsuccessful rewiring of the dissected DE LOS SANTOS graft with propagation.
5. Unsuccessful wiring of the poarch LAD.
6. Given the compromise of the DE LOS SANTOS flow, inability to successfully rewire the DE LOS SANTOS and inability to open the poarch artery, CT surgery was called to bedside. The patient's films were reviewed and the situation assessed. After it was clear that
the poarch LAD circulation was not amenable to PCI, the decision was made to take the patient for emergent bypass.
RECOMMENDATIONS:
1. To OR for emergent bypass.
2. The patient's family/ has been updated.
Copy to: Greg Aviles M.D., Kyrie Asher M.D.
Ollie Eli DO, FACC, FACP
[2024-08-13 10:11] LABS: Urine Albumin 1+ (Neg - Trace); Urine Bilirubin Negative (Negative); Urine Character Slightly Cloudy (Clear); Urine Color Yellow; Urine Glucose 4+ (Negative); Urine Ketone Negative (Negative); Urine Leukocyte Negative (Negative); Urine Nitrite Negative (Negative); Urine Occult Blood 4+ (Negative); Urine Specific Gravity 1.015 (<1.030); Urine Urobilinogen Negative (Neg - 1+)
[2024-08-13 10:17] LABS: Urine Squamous Cell 0-2 /LPF (Few)
[2024-08-13 10:17] LABS: ACT-LR - POC > 397 Seconds (116-155)
[2024-08-13 10:17] LABS: ACT-LR - POC > 397 Seconds (116-155)
[2024-08-13 10:18] LABS: Urine Bacteria Few (Negative); Urine Red Blood Cell 16-20 /HPF (0-2)
--- NOTE | 2024-08-13 10:29 | W.PN.UPDATE ---
Update Note
Progress Note Update
STS RISK SCORE
Procedure Type:�Isolated CABG
Perioperative Outcome Estimate %
Operative Mortality 5.42%
Morbidity & Mortality 19.2%
Stroke 0.907%
Renal Failure 2.42%
Reoperation 7.91%
Prolonged Ventilation 8.42%
Deep Sternal Wound Infection 0.38%
Long Hospital Stay (>14 days) 5.23%
Short Hospital Stay (<6 days)* 33.5%
Clinical Summary
Planned Surgery: Isolated CABG, Emergent, ReOp#1 cardiovascular surgery
Demographics: 74 year old, White, male, 90.7kg, 179cm, BMI: 28.3 kg/m�
Lab Values: Creatinine: 0.7 mg/dL, Hematocrit: 42.4%, WBC Count: 9.5 10�/�L, Platelet Count: 576001 cells/�L
PreOp Medications: RHONDA Inhibitors/ARBs <=48 hrs, ADP Inhibitors <=5 days, Insulin diabetes control
Substance Abuse: Never smoker
Risk Factors / Comorbidities: Insulin-dependent Diabetes Mellitus, Hypertension
Cardiac Status: Chronic heart failure, NYHA Class II, Ejection Fraction = 47%
Coronary Artery Disease: Unstable Angina
Prev. Cardiac Interv: Previous CABG; Previous valve: Aortic valve replacement, surgical; Previous PCI: At this facility <=6 hours
--- NOTE | 2024-08-13 10:32 | CONSULT.CT ---
Consultation
-
Date/Time Consultation Requested: 08/13/24
Date/Time Consultation Performed: 08/13/24
Requesting Provider: Ollie Eli
Performing Provider: Malika CHAN for Patrice Delatorre MD
Reason for Consultation: dissected LAD, evaluation for emergent redo CABG
Patient History
Physicians
Family Physician: Stefanie Asher
Outpatient Audiovisual Tech: Greg Aviles
Inpatient Audiovisual Tech: [facility]
History of Present Illness
74-year-old male with extensive coronary history of mechanical AVR/CABG in 2008 followed by NSTEMI with 80% stenosis of LAD at DE LOS SANTOS anastomosis requiring LAD stent in April 2024. Presents to [facility]
08/13/24 for heart catheterization due to recurrent exertional chest pressure and abnormal stress test. Underwent successful PCI of 80% in-stent restenosis including the distal margin of the stent leading into the northway vessel.
PCI of the 90% proximal stent edge restenosis, complicated by DE LOS SANTOS dissection. Last Coumadin dose 08/10, last Plavix dose 08/11 and received ASA 324mg today. LVEF 45-50% by TTE in April 2024. Current INR 2.68.
Past Medical History
Past Medical History: CAD (s/p stent to 80% stenosis of mid LAD at site of DE LOS SANTOS anastamosis (04/18/24)), CHF (EF 45-50%), HTN, Hypercholesterolemia, NIDDM (on Trulicity, Jardiance), [place] (NSTEMI 04/2024), PAT, Valvular Disease (s/p mechanical AVR
#27mm (05/07/09)on Coumadin) and Other (spinal stenosis L4-5)
Past Surgical History
Past Surgical History: CABG (mechanical AVR #27mm/CABG 05/07/09 (Dr. Pal)), Orthopedic (left knee arthroscopy 2012) and Other (Cataract extraction with intraocular lens implant; LAD stent 04/2024)
Family History
Mother: at Age (58) and Cause of (CAD)
Father: at Age (59) and Cause of (CAD)
Social History
Alcohol: None
Drug: None
Tobacco: Non-Smoker
Personal:
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
Allergies
Allergy/AdvReac Type Severity Reaction Status Date / Time
levofloxacin [From Levaquin] Allergy Unknown Verified 08/13/24 07:27
rosuvastatin calcium Allergy Unknown Verified 08/13/24 07:27
[From Crestor]
simvastatin [From Zocor] Allergy MYALGIAS/leg Verified 08/13/24 07:27
cramping
Home Medications
�Medication �Instructions �Recorded �Confirmed �Type
warfarin 5 mg tablet (Jantoven) 10 mg PO .MOWETHFR@1800 Blood clot 11/08/09 08/13/24 History
prevention/tx
coenzyme [id number] E 100 mg-5 1 ea PO HS Supplement 01/04/15 08/13/24 History
unit capsule (Co Q-10 (with Vit E))
cyanocobalamin (vitamin B-12) 1,000 mcg PO QPM Supplement 07/07/16 08/13/24 History
1,000 mcg tablet
acetaminophen 500 mg tablet 1,000 mg PO Q6HPRN PRN mild pain 08/26/18 08/13/24 History
(Tylenol Extra Strength)
cholecalciferol (vitamin D3) 25 1,000 units PO QPM Supplement 08/26/18 08/13/24 History
mcg (1,000 unit) tablet
atorvastatin 40 mg tablet 40 mg PO QPM High Cholesterol 04/18/24 08/13/24 History
dulaglutide 4.5 mg/0.5 mL 4.5 mg SC BAL Diabetes 04/18/24 08/13/24 History
subcutaneous pen injector
(Trulicity)
empagliflozin 25 mg tablet 25 mg PO QPM Diabetes 04/18/24 08/13/24 History
(Jardiance)
ezetimibe 10 mg tablet (Zetia) 10 mg PO QPM High Cholesterol 04/18/24 08/13/24 History
fluticasone propionate 50 2 spray intranasal BID Allergies 04/18/24 08/13/24 History
mcg/actuation nasal
spray,suspension
therapeutic multivitamin 1 tab PO DAILY Supplement 04/18/24 08/13/24 History
warfarin 5 mg tablet 10 mg PO .SUTUSAT@1800 Blood Clot 04/18/24 08/13/24 History
Prevention/Tx
clopidogrel 75 mg tablet 75 mg PO DAILY #30 tabs 04/22/24 08/13/24 Rx
lisinopril 2.5 mg tablet 2.5 mg PO DAILY #30 tabs 04/22/24 08/13/24 Rx
metoprolol succinate 25 mg 25 mg PO DAILY #30 tabs 04/22/24 08/13/24 Rx
tablet,extended release 24 hr
nitroglycerin 0.4 mg sublingual 0.4 mg sublingual Q5-15M PRN chest 08/13/24 08/13/24 History
tablet pain
Review of Systems
-
Unable to obtain full review of systems at this time due to: Other (emergently going to OR for dissected LAD)
Physical Exam
Vital Signs
Temp 97.7 F 08/13/24 06:50
Temp route: Oral 08/13/24 07:13
Pulse 61 08/13/24 07:30
Blood pressure 143/79 08/13/24 06:52
Blood pressure extremity used: Left upper arm 08/13/24 07:13
Position: Sitting 08/13/24 07:13
MAP (cuff-Douglas Monitor) 100 08/13/24 06:52
SaO2 97 08/13/24 07:30
Oxygen Mode of Delivery Room air 08/13/24 07:13
Can the patient verbally communicate their pain? Yes 08/13/24 07:13
Actual Weight 90.7 kg 08/13/24 06:39
Body Mass Index (BMI) 28.3 08/13/24 06:39
Labs
08/13/24 09:36
08/13/24 09:36
PT 28.9 Sec (11.4-14.6) H 08/13/24 09:36
Hemoglobin A1c Cancelled 08/13/24 09:36
Urinalysis
Urine Color Yellow 08/13/24 10:06
Urine Clarity Slightly cloudy (Clear) 08/13/24 10:06
Urine pH 5.0 (5.0-9.0) 08/13/24 10:06
Ur Specific Groom 1.015 (<1.030) 08/13/24 10:06
Urine Ketones Negative (Negative) 08/13/24 10:06
Ur Occult Blood Reflex 4+ (Negative) A 08/13/24 10:06
Urine Bilirubin Negative (Negative) 08/13/24 10:06
Leukocyte Esterase Rfl Negative (Negative) 08/13/24 10:06
Urine RBC 16-20 /HPF (0-2) A 08/13/24 10:06
Urine WBC (Reflex) 6-10 /HPF (0-5) 08/13/24 10:06
Ur Squamous Epith Cells 0-2 /LPF (Few) 08/13/24 10:06
Urine Bacteria (Reflex) Few (Negative) A 08/13/24 10:06
Urine Glucose 4+ (Negative) A 08/13/24 10:06
Urine Albumin (Reflex) 1+ (Neg - Trace) A 08/13/24 10:06
Diagnostic Studies
TTE 04/18/25:
EF 45-50% with inferior lateral wall hypokinesis
Normal RV size and function
Mild mitral stenosis with mean gradient of 4 mmHg
Mechanical aortic valve with gradients 11/5 mmHg
Exam
General: Well Developed and Well Nourished
HEENT: Normocephalic, Anicteric and Moist Mucous Membranes
Respiratory: Clear
Cardiac: S1/S2, Regular Rhythm and Other (+aortic click)
GI: Soft, Non Tender and Non Distended
Rectal: Deferred by Provider
Skin: Warm and Dry
Neuro: AO x 3, No Motor Deficits and Nonfocal/Grossly Intact
Lymph: No Lymphadenopathy
Psych: Calm
Assessment / Plan
-
74-year-old male with history of mechanical AVR/CABG (2008), now with dissection of LAD s/p PCI of instent restenosis and PCIof edge restenosis
- Dr. Delatorre reviewed imaging with Dr. Eli and agreed to proceed with emergent redo CABG
- 3 pools of platelets available as current INR 2.0
- Patient on Jardiance and lisinopril, watch for euglycemic DKA and vasoplegia respectively postoperatively
Data Reviewed
-
EKG: Report Reviewed by me and Discussed with Physician
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
Echo: Report Reviewed by me and Discussed with Physician
Labs: Labs Reviewed by me and Discussed with Physician
[2024-08-13 10:41] LABS: APTT 199.8 Sec (23.4-35.0)
[2024-08-13 10:41] LABS: ACT+ - POC 228 Seconds (82-134)
[2024-08-13 10:42] LABS: B.E. - POC -4.5 mmol/L; Glucose - POC 142 mg/dl (70-99); HCO3 - POC 21 mmol/L (21-28); Hematocrit - POC 40 % PCV (42-52); Hemodilution- POC No; Hemoglobin Calculated - POC 13.7; Lactate - POC 0.32 mmol/L (0.36-0.75); O2 Saturation %Calculated-POC 99.9 % (94-98); PCO2 - POC 39 mmHg (35-48); PO2 - POC 301 mmHg (83-108); POC Comment PRE; Potassium - POC 3.8 mmol/L (3.5-5.1); Sodium - POC 138 mmol/L (136-145); Specimen Type - POC Arterial; pH - POC 7.34 (7.35-7.45)
[2024-08-13 11:41] LABS: Glycohemoglobin (HgbA1c) 6.5 % (4.0-5.6)
[2024-08-13 12:29] LABS: ACT+ - POC > 1003 Seconds (82-134)
[2024-08-13 12:29] LABS: ACT+ - POC > 1003 Seconds (82-134)
[2024-08-13 12:44] LABS: B.E. - POC -0.9 mmol/L; Glucose - POC 175 mg/dl (70-99); HCO3 - POC 24 mmol/L (21-28); Hematocrit - POC 30 % PCV (42-52); Hemodilution- POC Yes; Hemoglobin Calculated - POC 10.2; Ionized Calcium - POC 1.08 mmol/L (1.15-1.33); PCO2 - POC 41 mmHg (35-48); PO2 - POC 480 mmHg (83-108); Potassium - POC 4.5 mmol/L (3.5-5.1); Sodium - POC 138 mmol/L (136-145); Specimen Type - POC Arterial; pH - POC 7.38 (7.35-7.45)
[2024-08-13 13:10] LABS: B.E. - POC -1.3 mmol/L; Glucose - POC 203 mg/dl (70-99); HCO3 - POC 24 mmol/L (21-28); Hematocrit - POC 33 % PCV (42-52); Hemodilution- POC Yes; Hemoglobin Calculated - POC 11.1; Ionized Calcium - POC 1.15 mmol/L (1.15-1.33); O2 Saturation %Calculated-POC 99.9 % (94-98); PCO2 - POC 39 mmHg (35-48); PO2 - POC 347 mmHg (83-108); POC Comment CPB; Sodium - POC 137 mmol/L (136-145); Specimen Type - POC Arterial; pH - POC 7.39 (7.35-7.45)
[2024-08-13 14:29] LABS: B.E. - POC -2.2 mmol/L; Glucose - POC 181 mg/dl (70-99); HCO3 - POC 23 mmol/L (21-28); Hematocrit - POC 29 % PCV (42-52); Hemodilution- POC Yes; Hemoglobin Calculated - POC 9.8; Ionized Calcium - POC 1.09 mmol/L (1.15-1.33); O2 Saturation %Calculated-POC 99.9 % (94-98); PCO2 - POC 38 mmHg (35-48); PO2 - POC 324 mmHg (83-108); POC Comment CPB; Potassium - POC 4.3 mmol/L (3.5-5.1); Sodium - POC 137 mmol/L (136-145); Specimen Type - POC Arterial; pH - POC 7.38 (7.35-7.45)
[2024-08-13 14:29] LABS: B.E. - POC -0.1 mmol/L; Glucose - POC 171 mg/dl (70-99); HCO3 - POC 25 mmol/L (21-28); Hematocrit - POC 25 % PCV (42-52); Hemodilution- POC Yes; Hemoglobin Calculated - POC 8.6; Ionized Calcium - POC 1.05 mmol/L (1.15-1.33); O2 Saturation %Calculated-POC 99.9 % (94-98); PCO2 - POC 42 mmHg (35-48); PO2 - POC 296 mmHg (83-108); POC Comment CPB; Potassium - POC 3.9 mmol/L (3.5-5.1); Sodium - POC 142 mmol/L (136-145); Specimen Type - POC Arterial; pH - POC 7.39 (7.35-7.45)
[2024-08-13 14:34] LABS: ACT+ - POC > 1003 Seconds (82-134)
[2024-08-13 14:34] LABS: ACT+ - POC > 1003 Seconds (82-134)
[2024-08-13 14:35] LABS: ACT+ - POC > 1003 Seconds (82-134)
[2024-08-13 15:14] LABS: B.E. - POC 1.1 mmol/L; Glucose - POC 176 mg/dl (70-99); HCO3 - POC 24 mmol/L (21-28); Hematocrit - POC 28 % PCV (42-52); Hemodilution- POC Yes; Hemoglobin Calculated - POC 9.6; Ionized Calcium - POC 1.08 mmol/L (1.15-1.33); PCO2 - POC 33 mmHg (35-48); PO2 - POC 378 mmHg (83-108); POC Comment CPB; Potassium - POC 3.8 mmol/L (3.5-5.1); Sodium - POC 140 mmol/L (136-145); Specimen Type - POC Arterial; pH - POC 7.48 (7.35-7.45)
--- NOTE | 2024-08-13 15:44 | OR.RPT ---
Operative Report
Operative Report
PROCEDURE DATE: 08/13/2024
Preoperative diagnosis:
1. Coronary artery disease.
2. Coronary artery dissection during coronary catheterization procedure.
3. Ongoing urgent surgical coronary revascularization with the assistance of left femoral arterial bypass cannula.
Postoperative diagnosis: Same
Procedure:
1. Exposure of left common femoral artery.
2. Removal of intra-arterial cannula and primary repair of arterial rent.
Surgeon: Marcelino
Strategic Alliances Manager: None
Complications: None
Anesthesia: General
Indications for procedure:
Patient undergoing open surgical coronary revascularization. I was asked by Dr. Delatorre in the cardiac surgery team to assist with left femoral artery bypass cannula removal and exposure of the artery in order to do so.
Description of procedure:
I entered the cardiac operating room and the patient's chest was already open and had undergone coronary revascularization. (Patient had already been prepped and draped by the cardiac surgery team). A cutdown in the left groin had been performed,
but they had difficulty exposing the left common femoral artery. I now placed self-retaining retractors in the left groin cutdown site. I now continued the cutdown to the level of the inguinal ligament with the combination of electrocautery and
sharp dissection with Metzenbaum scissor. Identified the common femoral artery as it emerged from underneath inguinal ligament, carefully circumferentially dissecting at this juncture. I passed a vessel loop around it proximally. I now dissected
distal to the cannula entry site into the artery. Identified the distal common femoral artery and carefully circumferentially dissected and passed a vessel loop around it. There was a anterior/anterior medial calcified branch that was emanating
from the vicinity of the cannula entry site that I had to ligate between silk ties and then divided. Now that I proximal and distal exposure, and once the cardiac surgery team was ready for removal, I clamped the proximal common femoral artery with
a Derra type clamp (vessel loop was not occlusive due to calcified plaque) while the cannula was removed. The distal common femoral artery was clamped with a profunda type clamp. The small arteriotomy/rent through which the cannula had entered the
artery was now repaired primarily. I carefully inspected the intima to confirm that there was no significant intimal dissection. I now primarily repaired to the arteriotomy transversely with interrupted 5-0 Prolene suture. I then tied down the
sutures. Flow was then reestablished through the artery by releasing the clamps. There was good pulsatile flow. The site was packed and I turned the case back over to the cardiac surgery team. Please see cardiac surgery dictation of operative
note.
[2024-08-13 15:55] LABS: B.E. - POC -2.7 mmol/L; Glucose - POC 151 mg/dl (70-99); HCO3 - POC 21 mmol/L (21-28); Hematocrit - POC 27 % PCV (42-52); Hemodilution- POC Yes; Hemoglobin Calculated - POC 9.1; Ionized Calcium - POC 1.07 mmol/L (1.15-1.33); O2 Saturation %Calculated-POC 99.9 % (94-98); PCO2 - POC 33 mmHg (35-48); PO2 - POC 345 mmHg (83-108); Potassium - POC 3.4 mmol/L (3.5-5.1); Sodium - POC 141 mmol/L (136-145); Specimen Type - POC Arterial; pH - POC 7.42 (7.35-7.45)
[2024-08-13 16:24] LABS: B.E. - POC -1.1 mmol/L; Glucose - POC 144 mg/dl (70-99); HCO3 - POC 24 mmol/L (21-28); Hematocrit - POC 25 % PCV (42-52); Hemodilution- POC Yes; Hemoglobin Calculated - POC 8.6; Ionized Calcium - POC 1.06 mmol/L (1.15-1.33); PCO2 - POC 41 mmHg (35-48); PO2 - POC 420 mmHg (83-108); POC Comment CPB; Potassium - POC 3.4 mmol/L (3.5-5.1); Sodium - POC 142 mmol/L (136-145); Specimen Type - POC Arterial; pH - POC 7.38 (7.35-7.45)
[2024-08-13 16:50] LABS: Glucose - POC 177 mg/dl (70-99); HCO3 - POC 24 mmol/L (21-28); Hematocrit - POC 25 % PCV (42-52); Hemodilution- POC Yes; Hemoglobin Calculated - POC 8.6; Ionized Calcium - POC 0.99 mmol/L (1.15-1.33); PCO2 - POC 40 mmHg (35-48); PO2 - POC 386 mmHg (83-108); Potassium - POC 3.6 mmol/L (3.5-5.1); Sodium - POC 142 mmol/L (136-145); Specimen Type - POC Arterial; pH - POC 7.39 (7.35-7.45)
[2024-08-13 16:53] LABS: ACT+ - POC 170 Seconds (82-134)
[2024-08-13 17:49] LABS: Glucose - POC 164 mg/dl (70-99); HCO3 - POC 23 mmol/L (21-28); Hematocrit - POC 22 % PCV (42-52); Hemodilution- POC Yes; Hemoglobin Calculated - POC 7.5; O2 Saturation %Calculated-POC 99.5 % (94-98); PCO2 - POC 38 mmHg (35-48); PO2 - POC 172 mmHg (83-108); Potassium - POC 3.2 mmol/L (3.5-5.1); Sodium - POC 141 mmol/L (136-145); Specimen Type - POC Arterial; pH - POC 7.39 (7.35-7.45)
--- NOTE | 2024-08-13 18:04 | W.IMMPOSTOP ---
Addendum entered and electronically signed by Patrice Delatorre MD 08/13/24 19:03:
[id number]
Except for the known foreign material noted below, all instrument, sponge, and needle counts were correct at the end of the procedure.
Original Note:
Surgical Immed Post Op Note
-
CARDIAC SURGERY OPERATIVE NOTE: Emergency CABG, et. al.
Preoperative Dx:
Spiral dissection of KYLIE-to-LAD anastomosis w/ CP and intermittent BRENDA
Postoperative Dx:
Same
Procedures:
1) Placement of R CFV 5Fr sheath w/ U/S and HAILEY guidance; wire placement into SVC
2) Removal of prior sternal wires
3) Endoscopic harvest/prep of RLE GSV
3) Re-entry sternotomy - paused secondary to presumptive RV injury
4) Establishment of CPB via femoral cannulation (25Fr long femoral venous via R CFV, 15Fr arterial via L CARDIOVASCULAR RADIOLOGIC TECHNOLOGIST)
5) Completion of re-entry sternotomy
6) Removal of portion of fractured sternal wire & temporary repair of sternal wire induced RV injury w/ 3 interrupted 4-0 prolene pledgetted sutures
7) Extensive lysis of dense circumferential pericardial/mediastinal adhesions w/ combination of sharp, blunt, and electrocautery aided dissection (estimated STANLEY time 1:45hrs)
8) Repair of innominate vein injury w/ 6-0 prolene suture
9) Complete repair of RV injury w/ additional 4-0 prolene sutures and felt strips w/ good result
10) Exposure of LAD approximately 1.5cm distal to prior LAD stent (intramyocardial under approximately 2-3mm)
11) Pump-assists beating heart bypass w/ GSV to LAD (ELD 1.5mm; anastomosis performed over 1.0mm shunt) - proximal completed w/ Heartstring III device
12) Partial wean from CPB support - significant dark bleeding from medial aspect of GSV-to-LAD anastomosis
13) Re-establishment of CPB support with repair of RV disruption/intraventricular groove separation (4-0 prolene and pericardial pledgets)
14) Open exposure of L CARDIOVASCULAR RADIOLOGIC TECHNOLOGIST (assisted by vascular surgery) w/ proximal and distal control
15) Repeat separation from CPB support - prior bleeding significantly reduced/resolved
16) Removal of L CARDIOVASCULAR RADIOLOGIC TECHNOLOGIST 15Fr arterial cannula w/ primary repair of L CARDIOVASCULAR RADIOLOGIC TECHNOLOGIST
17) Recurrent significant, pulsatile venous bleeding from medial aspect of GSV to LAD bypass
18) Repeat central aortic cannulation and re-establishment of CPB
19) Repair of progressive RV disruption w/ additional 4-0 prolene and pericardial pledgets - unsuccessful w/ further cephalad propagation of dissection
20) Repair of progressive RV disruption w/ 4-0 prolene and felt pledgets placed under GSV-to-LAD anastomosis w/ improved repair
21) Placement of topical hemostatic agents
22) Separation from CPB w/ removal of long femoral venous line and aortic cannula
23) Repair of SVC/Innominate vein disruption w/ 4-0 prolene pledgetted sutures
24) Management of coagulopathy
25) Packing & placement of open chest dressing
26) Closure of L CARDIOVASCULAR RADIOLOGIC TECHNOLOGIST exposure
Cardiac Surgeon:
Patrice Delatorre M.D.
Assistants:
Claire Leos P.A.-C.; first aid attendant throughout
Lali Maier P.A.-C.; endoscopic harvest/prep of RLE GSV
Anesthesia:
Horacio Dumont M.D. and Cinda OlsenN.A.
Perfusion:
Skylar GroverC.P.
Findings:
GSV was healthy, but large (ELD 4.5-5.5mm) conduit with healthy appearing prince
Upon entry the RV was injured, likely from a portion of a fractured posterior sternal wire being deflected by the sternal saw. This injury was over approximately 2cm. It was temporized and then formally repaired with good result
The patient had extensive circumferential adhesions requiring protracted STANLEY
There was a minor injury to the innominate vein that was primary repaired w/ good result
LAD was intramyocardial and extensively diseased, the prior LAD stent was visible - distal midpoint intramyocardial segment w/ normal prince as anastomotic site, ELD 1.5mm (anastomosis performed over 1.0mm shunt)
There was significant progressive RV disruption just medial to the GSV-to-LAD anastomosis that required extensive complex repairs & necessitated re-establishment of CPB x 2
The patient had a medical coagulopathy requiring application of an open chest dressing and transfusions
Implants:
Vaginal packing strips x 4
Kerlex packing strips x 2
CT x 3
Transfusions:
9U PRBC, 3pk PLT, 2U FFP
Condition:
Critical & guarded to CVICU
[2024-08-13 18:23] LABS: ACT-LR - POC 244 Seconds (116-155)
[2024-08-13 18:25] LABS: Glucose - Point of Care 145 mg/dl (70-99)
[2024-08-13] MEDS: DIPRIVAN 100 IV (18:28)
[2024-08-13 18:29] LABS: B.E. -3.1 mmol/L; HCO3 20.9 mmol/L (21-28); Ionized Calcium 0.92 mMOL/L (1.15-1.33); O2 Saturation % 99.7 % (94-98); PCO2 33 mmHg (35-48); PO2 214 mmHg (83-108); Potassium 3.5 mMOL/L (3.5-5.1); Sodium 138 mMOL/L (136-145)
[2024-08-13] MEDS: SUBLIMAZE 100 IV (18:29)
[2024-08-13 18:30] LABS: pH 7.41 (7.35-7.45)
[2024-08-13] MEDS: PACERONE PO (18:30)
[2024-08-13] MEDS: ZETIA PO (18:30)
[2024-08-13] MEDS: NSS 500 IV (18:30)
[2024-08-13] MEDS: LIPITOR PO (18:30)
[2024-08-13] MEDS: NEURONTIN PO ×2 (18:30→23:51)
[2024-08-13] MEDS: ANCEF 10 IV ×2 (18:30→18:35)
[2024-08-13] MEDS: TYLENOL PO ×2 (18:30→23:51)
[2024-08-13 18:31] LABS: Mixed Venous O2 Saturation 65.7 %
[2024-08-13 18:32] LABS: Hemoglobin 10.8 g/dL (13.0-18.0); Platelet Count 105 10^3/uL (130-400)
[2024-08-13] MEDS: SUBLIMAZE 50 MCG IV (18:33)
[2024-08-13] MEDS: KCL 50 IV ×2 (18:34→19:41)
[2024-08-13 18:39] LABS: INR 2.74; PT 29.4 Sec (11.4-14.6)
[2024-08-13 18:40] LABS: APTT 59.1 Sec (23.4-35.0)
[2024-08-13] MEDS: CALCIUM CHLORIDE 10% SYRINGE 1000 MG IV (18:43)
[2024-08-13] MEDS: ROCURONIUM 90 MG IV (18:57)
[2024-08-13] MEDS: ROCURONIUM 250 MG IV (19:00)
--- NOTE | 2024-08-13 19:00 | PTCARENOTE ---
assumed care of patient @ 1900. recieved pt laying in bed, intubated, sedated, parylized. pupils 1, very sluggish. TOF testing q4. NSR in the 80s-90s. Labile BP 70s-120s. Goal SBP 90-[address] Delatorre. PA 20s/10s, CVP ~5. Doppler pulses, absent R
DP. 8.0 ET 22 @ R lip, SIMV 16, 550, 5,5, 40%. Lungs sound clear. 2 plr and 1 mediastinal chest tube with lvl 1 air leak. belly round, absent BS. Becerra draining blood tinged urine. Sternum left open by OR, covered with ioban dressing. L groin
cutdown dressed with 4x4, R groin puncture with 4x4 CDI. R IJ cordis with swan at 48, 20 L forearm, R radial a line,. all central lines zeroed, flushed. recieved with FILEMON at 4, insulin per protocol, dobut at 3, levo at 8, prop at 25, fent at 50.
see flowsheet for detailed assessment and interventions.
[2024-08-13 19:03] LABS: Blood Urea Nitrogen 12 mg/dl (9-20); Estimated Creatinine Clearance 115 ml/min; Glucose 138 mg/dl (70-99); Magnesium 2.2 mg/dl (1.6-2.3); Triglycerides 49 mg/dl (10-149)
[2024-08-13 19:08] LABS: Glucose - Point of Care 148 mg/dl (70-99)
[2024-08-13] MEDS: PROTAMINE 50 MG IV (19:13)
[2024-08-13 19:20] LABS: Fibrinogen 130 MG/DL (199-459)
[2024-08-13] MEDS: LR 250 ML IV (19:32)
--- NOTE | 2024-08-13 19:32 | PTCARENOTE ---
Received pt from CVOR team at 1800, Intubated and sedated on the vent at SIMV 40 %, rate 16, tv 550 psv 5 peep 5 pulse ox 99%. SR on monitor. RT IJ swan floated to 48 cm. Rt radial A line transducing. Lines leveled, recalibrated and flushed.
Drips infusing at arrival as follows : Insulin per glycemic protocol, Levophed, precedex, Dobutamine. Chest tubes x 3 to - 20 cm suction, air leak noted in both atriums. Chest open and covered with surgical dressing intact. Abdomen soft, giron
draining blood tinged urine. Rt groin puncture with surgical adhesive present. Lt groin INCLUSION TEACHER with lenore c,d,i. sterile dressing applied. Rt foot DP pulse absent, but PT pulse present with doppler. LT foot DP and PT pulse present with doppler.
Juanita hugger applied for temperature management. Fentanyl bolus and drip initiated along with Propofol for pain management and sedation. Pt rebolused with Rocuronium and drip initiated. Unable to obtain initial train of 4 reading as pt was
reparalyzed by Anesthesia upon transport. All twitches absent. Pupils 1 bilaterally non reactive . BP labile, 500 ml LR bolus administered along with half a gram of calcium IVP. Potassium and calcium replaced. 1 unit PRBC's and 1 PK platelets
transfused. Protamine administered. Bedside report given to legal records clerk RN. Family updated and at bedside.
[2024-08-13] MEDS: CALCIUM CHLORIDE 10% SYRINGE 500 MG IV (19:50)
[2024-08-13 19:59] LABS: Glucose - Point of Care 166 mg/dl (70-99)
[2024-08-13 20:14] LABS: B.E. -5.2 mmol/L; HCO3 18.4 mmol/L (21-28); O2 Saturation % 99.3 % (94-98); PCO2 29 mmHg (35-48); PO2 179 mmHg (83-108); Potassium 4.9 mMOL/L (3.5-5.1); pH 7.41 (7.35-7.45)
[2024-08-13] MEDS: SODIUM BICARBONATE 50 MEQ IV ×2 (20:41→23:10)
[2024-08-13] MEDS: SENOKOT-S PO (20:42)
--- NOTE | 2024-08-13 20:45 | PTCARENOTE ---
1 cryo 2 FFP infused
[2024-08-13 21:08] LABS: Glucose - Point of Care 198 mg/dl (70-99)
[2024-08-13 21:22] LABS: B.E. -1.4 mmol/L; O2 Saturation % 99.3 % (94-98); PCO2 31 mmHg (35-48); PO2 142 mmHg (83-108); pH 7.46 (7.35-7.45)
[2024-08-13 21:26] LABS: Hematocrit 25.4 % (39.0-52.0); Hemoglobin 8.9 g/dL (13.0-18.0); Platelet Count 123 10^3/uL (130-400)
--- NOTE | 2024-08-13 21:36 | PTCARENOTE ---
RT changed TV now 500 and rate 14 on ventilator per CTPA
[2024-08-13] MEDS: LEVOPHED 250 IV (21:38)
[2024-08-13 21:42] LABS: APTT 35.6 Sec (23.4-35.0); Fibrinogen 250 MG/DL (199-459); INR 1.62; PT 19.7 Sec (11.4-14.6)
[2024-08-13 22:04] LABS: Glucose - Point of Care 203 mg/dl (70-99)
[2024-08-13] MEDS: VANCOCIN 200 IV (22:29)
[2024-08-13 22:37] LABS: B.E. -4.4 mmol/L; Ionized Calcium 1.17 mMOL/L (1.15-1.33); O2 Saturation % 99.3 % (94-98); PCO2 39 mmHg (35-48); PO2 121 mmHg (83-108); Potassium 4.4 mMOL/L (3.5-5.1); pH 7.34 (7.35-7.45)
[2024-08-13] MEDS: CALCIUM GLUCONATE 100 IV (22:56)
[2024-08-13 23:00] VITALS: BP_SYST 109
--- NOTE | 2024-08-13 23:09 | PTCARENOTE ---
2 u PRBC infused per order on blood warmer
[2024-08-13 23:13] LABS: Glucose - Point of Care 231 mg/dl (70-99)
[2024-08-14] MEDS: ALBUMIN 5% 250 IV ×4 (00:04→07:31)
[2024-08-14 00:12] LABS: HCO3 23.1 mmol/L (21-28); Ionized Calcium 1.35 mMOL/L (1.15-1.33); O2 Saturation % 98.6 % (94-98); PCO2 40 mmHg (35-48); PO2 137 mmHg (83-108); Potassium 4.2 mMOL/L (3.5-5.1); pH 7.37 (7.35-7.45)
[2024-08-14] MEDS: DIPRIVAN 100 IV ×4 (00:13→18:27)
[2024-08-14 00:14] LABS: Glucose - Point of Care 174 mg/dl (70-99)
[2024-08-14 00:28] LABS: Lactic Acid 2.1 mmol/L (0.7-2.0)
[2024-08-14 00:34] LABS: Estimated Creatinine Clearance 77 ml/min; Magnesium 2.1 mg/dl (1.6-2.3)
[2024-08-14] MEDS: ANCEF 5 IV ×4 (00:34→23:11)
[2024-08-14] MEDS: REFRESH CELLUVISC GEL OPHTH (00:48)
[2024-08-14] MEDS: NITRO-BID 0.5 INCH TOPICAL ×5 (00:55→23:51)
[2024-08-14 01:15] LABS: Glucose - Point of Care 163 mg/dl (70-99)
[2024-08-14] MEDS: BACTROBAN 2% OINTMENT 1 APPLIC NASAL ×3 (01:41→20:37)
[2024-08-14 01:45] LABS: B.E. -3.2 mmol/L; Ionized Calcium 1.19 mMOL/L (1.15-1.33); O2 Saturation % 99.1 % (94-98); PCO2 39 mmHg (35-48); PO2 124 mmHg (83-108); Potassium 3.9 mMOL/L (3.5-5.1); pH 7.36 (7.35-7.45)
[2024-08-14] MEDS: LEVOPHED 250 IV ×2 (01:48→04:59)
[2024-08-14 02:06] LABS: Glucose - Point of Care 162 mg/dl (70-99)
[2024-08-14] MEDS: CALCIUM GLUCONATE 100 IV ×2 (02:11→23:52)
[2024-08-14 03:12] LABS: Glucose - Point of Care 142 mg/dl (70-99)
[2024-08-14] MEDS: KCL 50 IV (03:12)
[2024-08-14 03:21] LABS: B.E. -2.5 mmol/L; HCO3 22.5 mmol/L (21-28); Ionized Calcium 1.39 mMOL/L (1.15-1.33); O2 Saturation % 99.2 % (94-98); PCO2 39 mmHg (35-48); PO2 148 mmHg (83-108); Potassium 4.1 mMOL/L (3.5-5.1); pH 7.37 (7.35-7.45)
[2024-08-14 03:21] LABS: Hematocrit 28.4 % (39.0-52.0); Hemoglobin 9.7 g/dL (13.0-18.0); Mean Corp Hgb Conc. 34.2 g/dL (33.0-37.0); Mean Corpuscular Hgb 29.2 pg (27.0-31.0); Mean Corpuscular Volume 85.5 fL (80.0-94.0); Mean Platelet Volume 10.6 fL (7.4-10.4); Platelet Count 126 10^3/uL (130-400); Red Blood Cell Count 3.32 10^6/uL (4.70-6.10); Red Cell Dist. Width 14.8 % (11.5-14.5); White Blood Cell Count 16.6 10^3/uL (4.8-10.8)
[2024-08-14 03:24] LABS: Mixed Venous O2 Saturation 47.5 %
--- NOTE | 2024-08-14 03:27 | PTCARENOTE ---
1u PRBC infusing per order
[2024-08-14 04:00] VITALS: BP_SYST 87
[2024-08-14 04:00] LABS: Blood Urea Nitrogen 16 mg/dl (9-20); Calcium 9.3 mg/dl (8.4-10.2); Carbon Dioxide 22 mmol/L (22-30); Chloride 108 mmol/L (98-107); Estimated Creatinine Clearance 63 ml/min; Glucose 132 mg/dl (70-99); Magnesium 2.1 mg/dl (1.6-2.3); Potassium 3.9 mmol/L (3.5-5.1); Sodium 140 mmol/L (135-145); eGFR > 60.00
[2024-08-14] MEDS: CALCIUM CHLORIDE 10% SYRINGE 500 MG IV ×3 (04:13→08:53)
--- NOTE | 2024-08-14 04:19 | PTCARENOTE ---
front of pt bathed, unable to turn to change kasey underneath due to very labile BP. any change in position results in large drop in SBP. Titrating levo, giving blood and fluids to try to keep SBP >90. NSR on tele with more frequent PVCs. Multiple
electrolyte replacements given see mar. Tolerating vent well, FILEMON titrated per TOF protocol see worklist. care ongoing
[2024-08-14 04:26] VITALS: BP_SYST 87
[2024-08-14] MEDS: NOVOLIN R INSULIN INFUSION 100 IV ×2 (04:57→17:52)
--- NOTE | 2024-08-14 05:15 | W.PN.CT ---
Today's Communication / Plan
-
-pod #1
-intubated, sedated, on Rocuronium with open chest
-mVO2 47.5. LA 2.0. Current drips: Levo 20, Dobut 4, Vaso 0.04, Fentanyl 50, Propofol 25, Rocuronium 2.25, Insulin
-s/p multiple transfusions for coagulopathy/anemia
-CT outputs: 2 meds 265/425, pleur/med 555/555 in 24 hrs
-vent settings SiMV 14/500/5/40%
-continue Ancef and Vanco for open chest
-continue current drips
Assessment / Plan
-
- Spiral dissection of KYLIE-to-LAD anastomosis w/ CP and intermittent BRENDA- s/p Emergent Pump-assists beating heart bypass w/ GSV to LAD; Repair of RV injury; Significant progressive RV disruption just medial to the GSV-to-LAD anastomosis that
required extensive complex repairs & necessitated re-establishment of CPB x 2; Lysis of extensive circumferential adhesions; repair of a minor injury to the innominate vein; Open exposure of L CUT OFF MACHINE HELPER (assisted by vascular surgery) w/ proximal and
distal control on 08/13/[address] Delatorre, pod #1
- Admitted on 08/13/24 for elective cath for exertional CP and abnormal stress test
- Cath 08/13/24 with successful PCI of 80% in-stent restenosis including the distal margin of the stent leading into the tunica-biloxi vessel
and successful PCI of the 90% proximal stent edge restenosis, complicated by [place] dissection.
- hx mechanical AVR /CABG [place] [address] Pal
- NSTEMI with 80% stenosis of LAD at [place] anastomosis requiring LAD stent in 04/18/24- last Plavix dose was 08/11/24
- EF 45-50% by TTE 04/2024
- Chronic diastolic CHF
- HTN/HLD
- DM II ( on Trulicity and Jardiance)
- Coumadin anticoagulation for mechanical AVR - last dose 08/10/24
- Spinal stenosis L4-L5
- L knee arthroscopy 2012
- Cataract extraction
- Acute postop blood loss anemia in setting of preop coagulopathy (INR was 2.68 preop)- s/p multiple transfusions (13 pRBCs)
- Acute postop coagulopathy (4 FFPs, 1 cryo, Protamine)
- Acute postop thrombocytopenia (4 platelets)
- Acute cardiogenic shock
- Acute postop atelectasis
- Acute postop hypovolemia with subsequent hypervolemia
Discussed patient care with: Nursing and Care Team
Subjective
-
Date of Service: August 14, 2024
Objective Data
-
Lab Results
08/14/24 03:10
08/14/24 03:10
PT 19.7 Sec (11.4-14.6) H 08/13/24 21:14
INR 1.62 08/13/24 21:14
APTT 35.6 Sec (23.4-35.0) H 08/13/24 21:14
Vital Signs
Vital Signs
Temp Pulse Resp BP Pulse Ox
99.0 F 87 14 143/79 100
08/14/24 05:07 08/14/24 04:20 08/14/24 05:07 08/13/24 06:52 08/14/24 05:07
CT Intake/Output/Weight
08/13/24 08/13/24 08/14/24
06:59 18:59 06:59
Intake Total 872.0 / 4380.9 3508.9 / 4380.9
Output Total 535 / 1805 1270 / 1805
Balance 337.0 / 2575.9 2238.9 / 2575.9
SaO2: 100
Physical Exam
-
General: Other (sedated, intubated)
Cardiovascular: Regular rate & rhythm, No Murmurs and No Rub
Respiratory: Decreased Breath Sounds
Sternum: Other (open chest)
Incision: Clean and Dry
Extremities: Edema +1 (DPs and PTs by Doppler b/l)
Abdomen: soft, nontender, +decreased bowel sounds
Data Reviewed
-
Lab Results: Results Reviewed
Medications: Active Meds Reviewed
Chest X-Ray: Report Reviewed and Image Reviewed
ECG: Report Reviewed and Image Reviewed
[2024-08-14] MEDS: LR IV (05:46)
[2024-08-14 05:49] LABS: Ionized Calcium 1.29 mMOL/L (1.15-1.33)
[2024-08-14 06:00] VITALS: BMI 32.6
--- NOTE | 2024-08-14 06:11 | W.PN.UPDATE ---
Update Note
Progress Note Update
CARDIAC SURGERY ATTENDING:
Mr. Corona Benavidez remains in critical condition w/ open chest and vasopressive & inotropic requirements. Overnight he received 3U PRBC, 1U CRYO, 2U FFP, 1PLT. CT drainage has slowed significantly.
Will continue resuscitative efforts with ideally return to OR tomorrow for mediastinal washout/closure.
N: Sedated, paralyzed, fentanyl 50, propofol 25, rocuronium 2.25; maintain paralyzed/sedated - will plan to wean after mediastinal washout & closure [ideally tomorrow, potentially later today]
CV: levophed 20, vasopressin 0.04, dobutamine 4 - 77 sinus; 96/48, 27/15, CVP 10. - will likely require additional volume - goal CVP 14, leave dobutamine, wean levophed, then vaso for MAPS > 65; mediastinal washout/closure tomorrow
P: SIMV/14/500/40/5 - 7.37/39/148/22.5/-2.5/99.2 - MvO2 47.5 - maintain current vent settings, follow ABGs q4h, daily CXR
GI: NPO - continue NPO currently
: Creat 1.1, approximately 20-30mL/hr urine, gross hematuria largely resolved - follow UO, maintain giron
HEME: Hgb 9.7, PLT 126, INR 1.62, PTT 35.6, Fibrinogen 250 s/p multiple transfusions for coagulopathy/bleeding - follow labs, transfusions prn; keep Hgb 10, PLT > 100
ID: Continue ancef & vanco while chest open
ENDO: insulin gtt, BS 132
FEN: K 3.9, Mg 2.1 - follow lytes, replete prn
PROPH: SCDS, ETT care, Line/giron care
[2024-08-14 06:16] LABS: Potassium 4.6 mmol/L (3.5-5.1)
[2024-08-14] MEDS: PITRESSIN 100 IV ×3 (06:17→23:10)
[2024-08-14] MEDS: TYLENOL PO ×3 (06:32→22:07)
[2024-08-14 07:10] LABS: Glucose - Point of Care 118 mg/dl (70-99)
[2024-08-14 07:10] LABS: Glucose - Point of Care 129 mg/dl (70-99)
--- NOTE | 2024-08-14 07:21 | PTCARENOTE ---
Assumed care of patient from furniture assembly supervisor RN. Sedated and paralyzed on the vent. SIMV 40%, 14, 500, 5/5, pulse ox 98%. Pupils 1 bilaterally and sluggish. 2/4 twitches on TOF. SR on monitor 70's. RT IJ cordis with swan at 48 cm, Rt radial
Arterial line transducing. Lines leveled, recalibrated and flushed. Chest tubes x 3 to - 20 cm suction. No air leak or crepitus noted. Sternal incision OPEN with Ioban dressing intact. Abdomen soft. Becerra draining carlos urine. Bilateral groin
dressings c,d,i. Rt groin puncture intact. RT SVG site also intact with surgical adhesive present and Nicholas wrap intact. Bilateral DP and PT pulses via doppler. Skin warm and dry. Drip infusing on handoff as follows: Rocuronium, propofol,
fentanyl, Vasopressin, Dobutamine, Levophed and insulin. See flow sheet for totals/rates.
--- NOTE | 2024-08-14 07:29 | CON.INTV ---
Consultation
Consultation Request
Date/Time Consultation Requested: 08/14/2024-7 AM
Date/Time Consultation Performed: 08/14/2024-7 AM
Requesting Provider: Cardiovascular surgery
Performing Provider: Dr. Jin
Reason for Consultation: Postoperative ventilator/critical care management
Medical History
-
Chief Complaint: DE LOS SANTOS dissection
History of Present Illness:
74-year-old male with a history of CAD underwent elective cardiac catheterization for exertional chest pain and abnormal stress test with successful PCI of 80% in-stent restenosis and successful PCI of 90% proximal stent edge restenosis complicated
by DE LOS SANTOS dissection underwent emergent pump assisted beating heart bypass with repair of RV injury as well-groundskeeper porter consulted for postoperative ventilator/critical care management 08/14/2024. Patient is sedated on a ventilator and review of
systems was unobtainable.
Past Medical History
Past Medical History: None (CAD/CABG 2008/stent-LAD 2023. CHF EF 45%. Hypertension. Hyperlipidemia. Diabetes. PAT. 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 Spinal stenosis. Left knee arthroscopy. Cataract.)
Social History
Tobacco: Non-smoker
Alcohol: None
Drug: None
Personal:
Living: With Family
Occupational Exposures: No known asbestos exposure
Environmental Exposures: No known tuberculosis exposure
Family History
Family History: Early CAD (Mother- 58 years old, father 59 years old)
Allergies / Home Medications
Allergies
Allergy/AdvReac Type Severity Reaction Status Date / Time
levofloxacin [From Levaquin] Allergy Unknown Verified 08/13/24 07:27
rosuvastatin calcium Allergy Unknown Verified 08/13/24 07:27
[From Crestor]
simvastatin [From Zocor] Allergy MYALGIAS/leg Verified 08/13/24 07:27
cramping
Home Medications
�Medication �Instructions �Recorded �Confirmed �Last Taken �Type
warfarin 5 mg tablet (Jantoven) 10 mg PO .MOWETHFR@1800 Blood clot 11/08/09 08/13/24 08/08/24 18:00 History
prevention/tx
coenzyme N73-nazxixr E 100 mg-5 1 ea PO HS Supplement 01/04/15 08/13/24 08/12/24 20:00 History
unit capsule (Co Q-10 (with Vit E))
cyanocobalamin (vitamin B-12) 1,000 mcg PO QPM Supplement 07/07/16 08/13/24 08/12/24 20:00 History
1,000 mcg tablet
acetaminophen 500 mg tablet 1,000 mg PO Q6HPRN PRN mild pain 08/26/18 08/13/24 08/25/18 History
(Tylenol Extra Strength)
cholecalciferol (vitamin D3) 25 1,000 units PO QPM Supplement 08/26/18 08/13/24 08/12/24 20:00 History
mcg (1,000 unit) tablet
atorvastatin 40 mg tablet 40 mg PO QPM High Cholesterol 04/18/24 08/13/24 08/12/24 20:00 History
dulaglutide 4.5 mg/0.5 mL 4.5 mg SC BAL Diabetes 04/18/24 08/13/24 08/03/24 08:00 History
subcutaneous pen injector
(Trulicity)
empagliflozin 25 mg tablet 25 mg PO QPM Diabetes 04/18/24 08/13/24 08/03/24 08:00 History
(Jardiance)
ezetimibe 10 mg tablet (Zetia) 10 mg PO QPM High Cholesterol 04/18/24 08/13/24 08/12/24 20:00 History
fluticasone propionate 50 2 spray intranasal BID Allergies 04/18/24 08/13/24 04/17/24 History
mcg/actuation nasal
spray,suspension
therapeutic multivitamin 1 tab PO DAILY Supplement 04/18/24 08/13/24 08/12/24 08:00 History
warfarin 5 mg tablet 10 mg PO .SHILPA@1800 Blood Clot 04/18/24 08/13/24 08/10/24 18:00 History
Prevention/Tx
clopidogrel 75 mg tablet 75 mg PO DAILY #30 tabs 04/22/24 08/13/24 08/11/24 08:00 Rx
lisinopril 2.5 mg tablet 2.5 mg PO DAILY #30 tabs 04/22/24 08/13/24 08/12/24 08:00 Rx
metoprolol succinate 25 mg 25 mg PO DAILY #30 tabs 04/22/24 08/13/24 08/12/24 08:00 Rx
tablet,extended release 24 hr
nitroglycerin 0.4 mg sublingual 0.4 mg sublingual Q5-15M PRN chest 08/13/24 08/13/24 Unknown History
tablet pain
Review of Systems
-
Unable to Obtain full review of systems at this time due to: Patient Intubation
Vitals / Labs / Diagnostic Testing
Vital Signs
Temp Pulse Resp BP Pulse Ox
98.4 F 74 0 143/79 97
08/14/24 07:00 08/14/24 07:20 08/14/24 07:20 08/13/24 06:52 08/14/24 07:20
Lab Data
08/14/24 03:10
08/14/24 05:45
Laboratory Results
08/13/24 08/13/24 08/13/24
09:36 18:21 20:06
PT 28.9 H 29.4 H
INR 2.68 2.74
APTT 199.8 H* 59.1 H
pH 7.41 7.41
pCO2 33 L 29 L
pO2 214 H 179 H
HCO3 20.9 L 18.4 L
O2 Delivery Level
08/13/24 08/13/24 08/13/24
21:14 22:31 23:55
PT 19.7 H
INR 1.62
APTT 35.6 H
pH 7.46 H 7.34 L Cancelled
pCO2 31 L 39
pO2 142 H 121 H
HCO3 22.0 21.0
O2 Delivery Level
08/13/24 08/13/24 08/13/24
23:55 23:55 23:55
PT
INR
APTT
pH 7.37
pCO2 Cancelled 40
pO2 Cancelled 137 H
HCO3 Cancelled
O2 Delivery Level
08/13/24 08/13/24 08/14/24
23:55 23:55 01:38
PT
INR
APTT
pH 7.36
pCO2 39
pO2 124 H
HCO3 23.1 22.0
O2 Delivery Level Cancelled
08/14/24
03:08
PT
INR
APTT
pH 7.37
pCO2 39
pO2 148 H
HCO3 22.5
O2 Delivery Level
Diagnostic Testing:
Physical Exam
-
Exam:
Well-nourished and well-developed in no apparent distress
HEENT-atraumatic, normocephalic, oral tracheal intubation
Heart-regular rate and rhythm-no murmurs, rubs or gallops
Chest-diminished breath sounds, chest open
Abdomen soft nondistended
Extremities-no cyanosis, clubbing, edema and good peripheral pulses
Integument-intact, no rashes, lesions or ecchymosis
Neurologically not alert, not oriented, not moving any of his extremities sedated on a ventilator
Assessment
-
74-year-old male with a history of CAD underwent elective cardiac catheterization for exertional chest pain and abnormal stress test with successful PCI of 80% in-stent restenosis and successful PCI of 90% proximal stent edge restenosis complicated
by DE LOS SANTOS dissection underwent emergent pump assisted beating heart bypass with repair of RV injury as well-groundskeeper porter consulted for postoperative ventilator/critical care management 08/14/2024.
Cardiac catheterization status post stents and DE LOS SANTOS dissection
Status post reentry sternotomy, repair of innominate vein injury, repair of RV injury, pump assist beating heart bypass GSV to LAD, repair of SVC/innominate vein-Dr. Delatorre 08/13/2024
Ventilator dependent respiratory failure postoperatively
Leukocytosis
Anemia-normocytic
Hyperglycemia-A1c 6.5
Conditions present prior to admission:
CAD/CABG 2008/stent-LAD 2023.
CHF EF 45%.
Hypertension.
Hyperlipidemia.
Diabetes.
PAT-resolved with 80 pound weight loss
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
Spinal stenosis.
Tremors
Left knee arthroscopy.
Cataract.
Plan
Ventilator settings reviewed
FiO2 will be weaned
Minute ventilation will be adjusted
Arterial blood gases will be monitored
Spontaneous breathing trial will not be attempted today as patient likely going back to the OR tomorrow
Pulmonary artery catheter parameters will be followed-cardiac index 1.4
Pressors/antihypertensive/inotropes/diuretics will be provided as needed
Monitor chest tube output
Monitor hemoglobin
Monitor platelet count and coags
Transfuse blood product if needed
CT surgery following chest tubes
Monitor blood sugar
Insulin drip per protocol
Aspiration precautions
VAP prevention protocol
DVT prophylaxis
Early nutrition
Early mobilization
Patient followed for obstructive sleep apnea by Dr. Jin-initially seen 04/11/2021 and last seen 08/02/2021-resolution of PAT with 80 pound weight loss
Critical care statement: A total of 50 minutes of critical care time was provided for this patient today. This includes management of ventilator, spontaneous breathing trial, arterial blood gases, pressors, of unstable vital signs, evaluation of the
patient at bedside, reviewing the patient's pertinent medical records including radiographs, microbiology, laboratory evaluations, and discussion with primary team and critical care nursing.
Diagnostic data:
Chest x-ray 08/26/18-NAD�������
Chest x-ray 08/13/2024-endotracheal tube tip 4.4 cm above indira, mild atelectasis left base
Chest x-ray 08/14/2024-no pneumothorax, basilar opacifications
CT neck 05/03/21--severe degenerative/arthritic changes noted on the left side where the collar bone and chest bone or sternum meet -Sternoclavicular-which could explain the lump that he feels,, some carotid artery closure was noted and warrants
carotid ultrasounds, incidentally, his epiglottis also had a lot of calcifications which sometimes can be seen with people that have swallowing difficulties-Patient notified-we'll discuss carotid ultrasounds at next visit.�������
CT head angiogram 07/31/2023-no CT evidence for intracranial aneurysm
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
Brain MRA 06/28/21-no hemodynamically significant stenosis, branch occlusion or aneurysm�������
Neck MRA 06/28/21-no significant carotid plaque formation or hemodynamically significant stenosis
Echocardiogram 12/25/19-EF 65-70%�������
Echocardiogram 04/18/2024-EF 45-50%
Nuclear stress test 05/17/21-Systolic function moderately reduced, EF 41%, moderate risk study.
Cardiac catheterization 08/13/2024-successful PCI mid LAD distal stent edge haziness and 80% ISR lesion with reduction in stenosis, successful PCI 90% DE LOS SANTOS/LAD with reduction of stenosis to 0% with subsequent complication by dissection of DE LOS SANTOS graft
after post dilation
PSG around 2006 AHI-36, desaturation stefano 85%, CPAP 7-cm�������
HST-after 80 pound weight loss-05/23/21-ROSE-1.4, desaturation stefano 89%.
Data Reviewed
-
EKG: Report reviewed by me
Radiology: Report reviewed by me
CT Scan: Report reviewed by me
MRI: Report reviewed by me
Medical Tests (Nuc Med, Echo etc): Image personally visualized and interpreted
Labs: Labs reviewed by me
Old Records: Reviewed
Critical Care Time (in minutes): 65
[2024-08-14] MEDS: LIDOCAINE 4% PATCH TOPICAL (07:34)
[2024-08-14] MEDS: PROTONIX IV 40 MG IV (07:34)
[2024-08-14] MEDS: REFRESH CELLUVISC GEL 1 DROPS OPHTH ×2 (07:34→20:37)
[2024-08-14] MEDS: VITAMIN C PO (07:35)
[2024-08-14] MEDS: SENOKOT-S PO ×2 (07:35→20:38)
[2024-08-14] MEDS: MIRALAX TUBE (07:35)
[2024-08-14 07:58] LABS: Glucose - Point of Care 98 mg/dl (70-99)
--- NOTE | 2024-08-14 08:04 | W.PN.ANS.POP ---
Anesthesia Post Operative
- Anesthesia Post Op Note
Vital Signs Stable-See Nursing Note: Yes
Unplanned Admission: No
Post Op Hydration Adequate: Yes
- -
Pt remains intubated on pressors and sedation. VSS at time of post op visit, family at bedside.
--- NOTE | 2024-08-14 08:20 | PTCARENOTE ---
Chest tubes placed to - [address] Delatorre. Andrew up no, air leak noted. 18 FR [place] sump OGT placed. Placement checked via x ray. Placed to low intermittent suction. Just prior to obtaining x ray bp dropped spontaneously down to
70's systolic. LR bolus 250 ml administered along with 500 mg calcium IVP. BP responded well. Norepinepherine drip changed to double concentrated per CT VENTILATION WORKER.
[2024-08-14 08:33] LABS: ACT+ - POC > 1003 Seconds (82-134)
[2024-08-14 08:33] LABS: ACT+ - POC > 1003 Seconds (82-134)
[2024-08-14 08:33] LABS: ACT+ - POC > 1003 Seconds (82-134)
[2024-08-14 08:33] LABS: ACT+ - POC > 1003 Seconds (82-134)
--- NOTE | 2024-08-14 08:38 | PN.DE.MGMTRT ---
Insulin Management
- -
08/14/2024 Diabetes Management Consult
Patient admitted 08/13 for cardiac cath for exertional chest pain and abnormal stress test with successful PCI of 80% in-stent restenosis and successful PCI of 90% proximal stent edge restenosis complicated by DE LOS SANTOS dissection underwent emergent pump
assisted beating heart bypass with repair of RV injury. [facility] CAD - CABG 2008 PCI 04/2024, [place], CHF, HTN, HCL, diabetes, PAT, valve disease - mechanical AVR. Prior to admission was taking Jardiance 25 mg daily and Trulicity 4.5 weekly on Sunday. A1C
6.5%, cr .7, eGFR > 60.
POD 1 Patient remains on ventilator, unable to interview, all information obtained from chart and patient nurse.
Patient is currently on Glycemic protocol insulin infusion require 1.4 to 7 units of insulin per hour. Patient is critically ill, will continue glycemic protocol today. Will follow and track BMP for possible DKA as patient was taking Jardiance and
Trulicity; and for readiness to transition off insulin infusion.
Discussed with nurse.
Diabetes History
- -
Type of Diabetes: 2
Pre-Admission Diabetes Regimen
08/13/24 08/13/24 08/13/24
09:36 18:21 23:59
Creatinine 0.7 0.6 L 0.9
08/14/24
03:10
Creatinine 1.1
Lab Results
Hemoglobin A1c 6.5 % (4.0-5.6) H 08/13/24 09:36
Hemoglobin A1c Cancelled 08/13/24 09:36
Insulin Pump Settings
IP Diabetes Regimen
08/13/24 08/13/24 08/13/24
09:36 18:20 18:21
Glucose 137 H 138 H
POC Glucose 145 H
08/13/24 08/13/24 08/13/24
19:07 19:57 21:02
Glucose
POC Glucose 148 H 166 H 198 H
08/13/24 08/13/24 08/14/24
22:02 23:02 00:13
Glucose
POC Glucose 203 H 231 H 174 H
08/14/24 08/14/24 08/14/24
01:13 02:03 03:10
Glucose 132 H
POC Glucose 163 H 162 H 142 H
08/14/24 08/14/24 08/14/24
05:02 07:08 07:58
Glucose
POC Glucose 118 H 129 H 98
Patient Education
[2024-08-14 08:46] LABS: Mixed Venous O2 Saturation 52.2 %
[2024-08-14 08:47] LABS: B.E. -3.3 mmol/L; HCO3 22.1 mmol/L (21-28); Ionized Calcium 1.33 mMOL/L (1.15-1.33); PCO2 40 mmHg (35-48); PO2 106 mmHg (83-108); Potassium 5.1 mMOL/L (3.5-5.1); Sodium 138 mMOL/L (136-145); pH 7.35 (7.35-7.45)
[2024-08-14] MEDS: NEURONTIN PO ×3 (08:54→22:07)
[2024-08-14] MEDS: LEVOPHED 258 MG IV ×2 (08:54→15:45)
[2024-08-14] MEDS: LR 250 ML IV (08:54)
[2024-08-14 09:03] LABS: Glucose - Point of Care 106 mg/dl (70-99)
[2024-08-14] MEDS: VANCOCIN 200 IV ×2 (09:58→22:04)
[2024-08-14 10:03] LABS: Glucose - Point of Care 96 mg/dl (70-99)
--- NOTE | 2024-08-14 10:44 | W.PN.CD ---
Today's Communication / Plan
-
Continued supportive care.
Titrate inotropes/pressors for MAP > 60-65 mmHg, CI > 1.8 L/min/m2.
Transfuse as indicated.
Plan for chest closure when surgically appropriate.
Impression / Plan
-
Impression/Plan: 74 y/o male with DM2, HTN, HLD, severe s/p mechanical SAVR and multivessel CAD s/p prior CABG (DE LOS SANTOS to LAD, sequential SVG to OM to RPDA) with prior PCI to the mid-LAD + LAD/DE LOS SANTOS anastamosis, admitted after PCI to ISR lesions
was complicated by DE LOS SANTOS dissection requiring emergent re-operation with SVG to LAD.
#CAD
-Chronic.
-Cath showed an 80% ISR lesion in the LAD/DE LOS SANTOS stent as well as a 90% proximal stent edge lesion, patent sequential SVG.
-PCI performed on the 80% ISR lesion (Xience Skypoint 2.25 x 18 ELLIOTT, post dilated with a 2.75 NCB in the overlap) and the 90% proximal stent edge lesion (Xience Skypoint 3.0 x 26 ELLIOTT, post dilated with a 3.0 NCB) with reduction in stenoses to 0%.
-At the end of the procedure, the lesion could not be rewired after pulling back due to tension on the balloon. Repeat angiography showed spiral dissection of the DE LOS SANTOS graft, which could not be re-wired.
-PCI of the [place] LAD was attempted, but the lesion could not be wired.
-The patient was taken for emergent CABG.
#CABG/cardiogenic shock
-Acute.
-Repeat CABG (SVG to LAD), with Dr. Delatorre, 08/13/2024.
-CABG was complicated by RV laceration by a retained sternal wire with progressive RV disruption medial to the anastamosis, requiring extensive surgical repair and emergent ECMO cannulation.
-Chest was left open at the end of the surgery.
-Vascular surgery was called into the OR and performed primary repair of the peripheral cannulation site.
-PA catheter:
-PA = 31/17
-RA = 14
-CO = 3.61
-CI = 1.71
-Current gtts:
-Norepinephrine @ 20 mcg/kg/min
-Dobutamine @ 4 mcg/kg/min
-Vasopressin @ 0.04 mL/min
-Fentanyl
-Propofol
-Rocuronium
-Insulin
-Multiple transfusions for coagulopathy (PRBC x 3, Cryo x 1, FFP x 2, PLT x 1).
#Mechanical AVR
-Chronic, stable.
-Anticoagulation on hold given relative coagulopathy.
#HTN
-Chronic, currently hypotensive on pressors/inotropes.
#HLD
-Chronic.
-Resume high dose, high potency statin when taking PO.
#DM2
-Chronic.
-Insulin gtt per protocol.
Critical Care Time = 40 minutes.
Subjective/Interval History:
Emergent bypass after DE LOS SANTOS dissection yesterday.
Surgery complicated by RV laceration, which then propogated after SVG was anastamosed to the LAD, requiring extensive surgical repair.
Chest was left open at the end of surgery.
Multiple transfusions given.
Weight is up 13.9 kg (!). This seems unlikely but possible.
BP tenuous. Nursing documents drop in BP to 70's systolic with good response to fluid bolus.
DATA:
Cardiac catheterization/PCI, 08/13/2024:
CONCLUSIONS
1. Right dominant circulation with chronic total occlusion of the RCA, diffusely diseased and calcified left main coronary artery, a chronically totally occluded circumflex and a diffusely diseased proximal LAD with a [employer]MENT of the mid LAD status post
prior bypass (DE LOS SANTOS to LAD, sequential SVG to OM to RPDA) with prior PCI of de darrick mid LAD disease in the mid LAD extending into the DE LOS SANTOS anastomosis, now with a 90% stent edge lesion, haziness at the distal stent edge and an 80% ISR lesion in the
distal third of the stent.
2. Status post successful PCI of the distal stent edge haziness and 80% ISR (Xience Skypoint 2.25 x 18 ELLIOTT, postdilated with a 2.75 NC balloon and the stent overlap section) with reduction in stenosis to 0%, maintaining REINALDO-3 flow.
3. Status post successful PCI of the 90% proximal stent edge lesion into the DE LOS SANTOS graft (Xience Skypoint 3.0 x 28 ELLIOTT, postdilated with a 3.0 NC balloon) with reduction in stenosis to 0%, subsequently complicated by spiral dissection of the DE LOS SANTOS
graft.
4. Unsuccessful rewiring of the dissected DE LOS SANTOS graft with propagation.
5. Unsuccessful wiring of the [place] LAD.
6. Given the compromise of the DE LOS SANTOS flow, inability to successfully rewire the DE LOS SANTOS and inability to open the [place] artery, CT surgery was called to bedside. The patient's films were reviewed and the situation assessed. After it was clear that
the [place] LAD circulation was not amenable to PCI, the decision was made to take the patient for emergent bypass.
Physical Exam
Vital Signs/Labs
Vital Signs
Temp Pulse Resp BP Pulse Ox
36.6 C 68 14 143/79 97
08/14/24 10:01 08/14/24 10:01 08/14/24 10:01 08/13/24 06:52 08/14/24 10:01
08/12/24 08/13/24 08/14/24
11:59 11:59 11:59
Actual Weight 90.7 kg 104.6 kg
PT 19.7 Sec (11.4-14.6) H 08/13/24 21:14
INR 1.62 08/13/24 21:14
APTT 35.6 Sec (23.4-35.0) H 08/13/24 21:14
Magnesium 2.1 mg/dl (1.6-2.3) 08/14/24 03:10
Triglycerides 49 mg/dl (10-149) 08/13/24 18:21
Physical Exam
Constitutional: No acute distress and Comfortable
EENT: Anicteric, Moist mucous membranes and Other (ET tube in place.)
Cardiovascular: Rhythm & rate is regular, Pedal edema is absent, S1S2 is normal and Murmur/rub/gallop absent
Respiratory: Respiratory effort normal, Lungs clear to auscul., Wheeze Absent, Crackles Absent and Rhonchi Absent
GI: Soft, Distention absent, Flat and Non tender
Neuro/Psych: Other (Intubated/sedated.)
Data Reviewed
-
Date of Service: August 14, 2024
Medical Decision Making: Reviewed Test Results, Test Interpretation and Review of Case with other Provider
EKG: Tracing Personally Visualized and interpreted and Report Reviewed by me
X-Ray/CT/US/MRI/NUC/PET: Image Personally Visualized and interpreted and Report Reviewed by me
Medical Tests (PFT, Pathology etc): Image Personally Visualized and interpreted and Report Reviewed by me
Labs: Labs Reviewed by me
Old Records: Reviewed
[2024-08-14] MEDS: SUBLIMAZE 100 IV (10:58)
[2024-08-14 11:07] LABS: Hematocrit 26.2 % (39.0-52.0); Mean Corp Hgb Conc. 34.4 g/dL (33.0-37.0); Mean Corpuscular Hgb 29.3 pg (27.0-31.0); Mean Corpuscular Volume 85.3 fL (80.0-94.0); Red Blood Cell Count 3.07 10^6/uL (4.70-6.10); White Blood Cell Count 15.7 10^3/uL (4.8-10.8)
[2024-08-14 11:13] LABS: INR 1.77; PT 21.1 Sec (11.4-14.6)
[2024-08-14 11:14] LABS: Glucose - Point of Care 137 mg/dl (70-99)
[2024-08-14 11:14] LABS: APTT 36.8 Sec (23.4-35.0)
--- NOTE | 2024-08-14 11:14 | PTCARENOTE ---
Chest tubes appear clotty in tubing, CT HOG SAWYER able to strip tubes with resulting in drainage of dark old drainage.
[2024-08-14] MEDS: LR 500 IV (11:23)
[2024-08-14 11:31] LABS: Blood Urea Nitrogen 18 mg/dl (9-20); Carbon Dioxide 22 mmol/L (22-30); Chloride 106 mmol/L (98-107); Estimated Creatinine Clearance 57 ml/min; Glucose 137 mg/dl (70-99); Potassium 4.9 mmol/L (3.5-5.1); Sodium 137 mmol/L (135-145); eGFR 53.07
[2024-08-14 12:26] LABS: Mean Platelet Volume 10.4 fL (7.4-10.4); Platelet Count 88 10^3/uL (130-400)
[2024-08-14 13:07] LABS: Glucose - Point of Care 105 mg/dl (70-99)
--- NOTE | 2024-08-14 13:12 | RESPNOTE ---
ETT moved from left center to right side of mouth, still @ 22cm at the lips.
[2024-08-14] MEDS: LASIX 20 MG IV (13:19)
[2024-08-14 13:56] LABS: B.E. -3.6 mmol/L; HCO3 22.1 mmol/L (21-28); Ionized Calcium 1.27 mMOL/L (1.15-1.33); O2 Saturation % 97.3 % (94-98); PCO2 42 mmHg (35-48); PO2 79 mmHg (83-108); Sodium 137 mMOL/L (136-145); pH 7.33 (7.35-7.45)
[2024-08-14 13:57] LABS: O2 Therapy vent
[2024-08-14 14:09] LABS: Lactic Acid 2.5 mmol/L (0.7-2.0)
--- NOTE | 2024-08-14 14:17 | PTCARENOTE ---
1 unit PRBC's transfused as per order, followed by 20 mg iv lasix. Labs obtained. Turned and repositioned by RN. Washed down with CHG clothes, oral care provided. Respiratory called to change vent rate after labs resulted. Family at bedside.
Assessment otherwise unchanged from prior.
--- NOTE | 2024-08-14 14:18 | CM ---
CM following for DC planning needs.
Met w/ spouse + 2 sons at bedside to complete initial assessment. Pt. vented/sedated.
Pt. known to me from prior admission. Pt. resides w/ spouse in a private, 2 story home. Adult granddtr. also resides w/ them. Pt. is functionally indep. w/ ADLs, mobility without the use of any assisted device.
Pt. has RX Plan and uses [facility] in [place] for prescription needs.
Anticipated DC plan is for home w/ [facility] Transitional [facility] RN.
Will cont. to follow closely.
[2024-08-14 14:28] LABS: ALT (SGPT) 21 U/L (0-50); AST (SGOT) 104 U/L (17-59); Albumin 2.5 g/dl (3.5-5.0); Alkaline Phosphatase 33 U/L (38-126); Blood Urea Nitrogen 19 mg/dl (9-20); Calcium 8.4 mg/dl (8.4-10.2); Carbon Dioxide 23 mmol/L (22-30); Chloride 108 mmol/L (98-107); Estimated Creatinine Clearance 54 ml/min; Glucose 105 mg/dl (70-99); Potassium 4.9 mmol/L (3.5-5.1); Sodium 137 mmol/L (135-145); Total Bilirubin 1.4 mg/dl (0.2-1.3); eGFR 48.85
[2024-08-14] MEDS: DOBUTREX 500 MG 250 IV (14:41)
[2024-08-14 15:01] LABS: Glucose - Point of Care 86 mg/dl (70-99)
[2024-08-14 15:23] LABS: B.E. -4.2 mmol/L; O2 Saturation % 95.8 % (94-98); PCO2 38 mmHg (35-48); PO2 67 mmHg (83-108); pH 7.35 (7.35-7.45)
[2024-08-14] MEDS: NSS 500 IV (15:28)
[2024-08-14] MEDS: BUMEX 2 MG IV (16:11)
--- NOTE | 2024-08-14 16:15 | PTCARENOTE ---
Pulse ox dropped down to 90-93%, No vent alarms during event. Pulse ox probe moved and checked on multiple finger. Pulse ox unchanged with this. ABG obtained. CT [employer] notified. P CXR obtained. Pt spontaneously increased back to 97 % with
movement while obtaining cxr.
[2024-08-14] MEDS: SUBLIMAZE 50 MCG IV (16:54)
--- NOTE | 2024-08-14 16:58 | PTCARENOTE ---
BP elevating despite levophed weaning. BIS doubled to 50, Pt medicated with IVP fentanyl and fentanyl drip increased per protocol. Will continue to monitor and reassess.
--- NOTE | 2024-08-14 17:05 | PTCARENOTE ---
Pts son stated that pt moved head side to side. RN did not witness this but d/t elevated bp and elevated BIS score propofol increased.
[2024-08-14 17:14] LABS: Glucose - Point of Care 143 mg/dl (70-99)
[2024-08-14 17:31] LABS: B.E. -5.4 mmol/L; Ionized Calcium 1.26 mMOL/L (1.15-1.33); O2 Saturation % 96.5 % (94-98); PCO2 38 mmHg (35-48); PO2 73 mmHg (83-108); Potassium 5.6 mMOL/L (3.5-5.1); Sodium 138 mMOL/L (136-145); pH 7.33 (7.35-7.45)
[2024-08-14 17:34] LABS: Mixed Venous O2 Saturation 57.2 %
[2024-08-14 17:46] LABS: Blood Urea Nitrogen 20 mg/dl (9-20); Calcium 8.4 mg/dl (8.4-10.2); Carbon Dioxide 20 mmol/L (22-30); Chloride 106 mmol/L (98-107); Estimated Creatinine Clearance 50 ml/min; Glucose 144 mg/dl (70-99); Potassium 5.3 mmol/L (3.5-5.1); Sodium 136 mmol/L (135-145); eGFR 45.21
[2024-08-14 17:49] LABS: Lactic Acid 2.5 mmol/L (0.7-2.0)
[2024-08-14] MEDS: NORCURON 250 MG IV (17:49)
[2024-08-14 18:46] LABS: Glucose - Point of Care 120 mg/dl (70-99)
[2024-08-14] MEDS: SODIUM BICARBONATE 50 MEQ IV ×2 (20:00→21:23)
--- NOTE | 2024-08-14 20:00 | PTCARENOTE ---
assumed care of pt from previous RN. pt intubated, sedated, paralytic in use. ETT size 8.0, 24cm at the lip. Vent settings SIMV 16/500/5/5/40%. R IJ cordis w/ swan floated to 48cm. R radial a-line. all lines leveled, zeroed, flushed. SR w/
occasional PACs on tele-monitor. CTx3 (mediastinal x1, R & L pleural) to -10cm wall suction, draining sanguineous drainage. no tidaling or crepitus noted. OGT in place. abd s/n, absent BS. giron catheter draining carlos colored urine. sternum open,
not approximated, ioban dressing intact. R groin cannulation site w/ dressing in place, CDI. L cannulation site w/ dressing in place, CDI. R groin puncture and knee incision ADELIA, intact. PIV x2 intact. see worklist for complete nursing assessment,
interventions, gtt titration, VS, and I&Os.
[2024-08-14 20:29] LABS: Lactic Acid 3.4 mmol/L (0.7-2.0)
[2024-08-14 20:38] LABS: B.E. -3.6 mmol/L; HCO3 21.5 mmol/L (21-28); Ionized Calcium 1.25 mMOL/L (1.15-1.33); O2 Saturation % 95.8 % (94-98); O2 Therapy 40% fiO2; PCO2 38 mmHg (35-48); PO2 68 mmHg (83-108); Potassium 4.8 mMOL/L (3.5-5.1); pH 7.36 (7.35-7.45)
[2024-08-14 20:41] LABS: Mixed Venous O2 Saturation 59.4 %
[2024-08-14 21:21] LABS: Glucose - Point of Care 115 mg/dl (70-99)
[2024-08-14] MEDS: BUMEX 50 IV (22:19)
--- NOTE | 2024-08-14 22:30 | PTCARENOTE ---
vent changes made by RT per CT PA. bumex gtt started.
[2024-08-14 22:54] LABS: Glucose - Point of Care 110 mg/dl (70-99)
[2024-08-14] MEDS: DOBUTREX 250 MG IV (22:59)
[2024-08-14 23:01] LABS: B.E. -3.4 mmol/L; HCO3 21.3 mmol/L (21-28); Ionized Calcium 1.19 mMOL/L (1.15-1.33); O2 Saturation % 98.7 % (94-98); PCO2 36 mmHg (35-48); PO2 85 mmHg (83-108); Potassium 4.4 mMOL/L (3.5-5.1); Sodium 140 mMOL/L (136-145); pH 7.38 (7.35-7.45)
[2024-08-14 23:09] LABS: Mixed Venous O2 Saturation 61.8 %
[2024-08-14 23:15] LABS: Lactic Acid 2.9 mmol/L (0.7-2.0)
[2024-08-14 23:28] LABS: Blood Urea Nitrogen 22 mg/dl (9-20); Calcium 8.1 mg/dl (8.4-10.2); Carbon Dioxide 23 mmol/L (22-30); Chloride 105 mmol/L (98-107); Estimated Creatinine Clearance 54 ml/min; Glucose 119 mg/dl (70-99); Potassium 4.5 mmol/L (3.5-5.1); Sodium 137 mmol/L (135-145); eGFR 48.85
[2024-08-15] VITALS (15 sets, daily range): BP systolic 107–159; BP diastolic 54–79; PULSE 75; BMI 33.9
--- NOTE | 2024-08-15 | PTCARENOTE ---
assessment remains unchanged. 2g Calcium gluconate given per CT PA for iCal 1.19.
[2024-08-15 01:04] LABS: Glucose - Point of Care 95 mg/dl (70-99)
[2024-08-15 01:10] LABS: B.E. -1.6 mmol/L; HCO3 22.9 mmol/L (21-28); Ionized Calcium 1.29 mMOL/L (1.15-1.33); O2 Saturation % 96.8 % (94-98); PCO2 37 mmHg (35-48); PO2 72 mmHg (83-108); Potassium 4.5 mMOL/L (3.5-5.1)
[2024-08-15] MEDS: DIPRIVAN 100 IV ×2 (01:21→07:34)
[2024-08-15] MEDS: SUBLIMAZE 100 IV (01:21)
[2024-08-15 01:27] LABS: Lactic Acid 2.2 mmol/L (0.7-2.0)
[2024-08-15 03:14] LABS: Glucose - Point of Care 85 mg/dl (70-99)
--- NOTE | 2024-08-15 04:00 | PTCARENOTE ---
no acute changes. AM labs collected and sent.
[2024-08-15 04:21] LABS: Mixed Venous O2 Saturation 59.3 %
[2024-08-15 04:24] LABS: B.E. -2.3 mmol/L; HCO3 22.4 mmol/L (21-28); Hematocrit 28.1 % (39.0-52.0); Hemoglobin 9.8 g/dL (13.0-18.0); Ionized Calcium 1.23 mMOL/L (1.15-1.33); Mean Corp Hgb Conc. 34.9 g/dL (33.0-37.0); Mean Corpuscular Hgb 28.6 pg (27.0-31.0); Mean Corpuscular Volume 81.9 fL (80.0-94.0); Mean Platelet Volume 10.8 fL (7.4-10.4); O2 Saturation % 96.9 % (94-98); O2 Therapy VENT; PCO2 37 mmHg (35-48); PO2 79 mmHg (83-108); Platelet Count 68 10^3/uL (130-400); Potassium 4.8 mMOL/L (3.5-5.1); Red Blood Cell Count 3.43 10^6/uL (4.70-6.10); Red Cell Dist. Width 17.1 % (11.5-14.5); Sodium 139 mMOL/L (136-145); White Blood Cell Count 13.1 10^3/uL (4.8-10.8); pH 7.39 (7.35-7.45)
[2024-08-15 04:40] LABS: Lactic Acid 1.8 mmol/L (0.7-2.0)
[2024-08-15 04:50] LABS: Blood Urea Nitrogen 25 mg/dl (9-20); Calcium 8.4 mg/dl (8.4-10.2); Carbon Dioxide 24 mmol/L (22-30); Chloride 108 mmol/L (98-107); Estimated Creatinine Clearance 45 ml/min; Glucose 131 mg/dl (70-99); Potassium 4.8 mmol/L (3.5-5.1); Sodium 139 mmol/L (135-145); eGFR 39.25
[2024-08-15 05:20] LABS: Glucose - Point of Care 151 mg/dl (70-99)
--- NOTE | 2024-08-15 05:26 | W.PN.CT ---
Today's Communication / Plan
-
-pod #2
-remains sedated, intubated, on Vecuronium with open chest. Plans for chest closure today
-no significant issues overnight
-started on Bumex drip, increased fiO2 from 40 to 60% and peep from 5 to 7 to ensure adequate oxygenation
-mVO2 59.3. Drips: Bumex 1, Levo 5, Dobut 4, Vaso 0.04, Vecur 0.5, Propofol 25, Fentanyl 75, Insulin
-CT outputs: 2 meds 35/135, med/pleur 195/425 in 12/24 hrs
-NG tube was placed 08/14
-continue current drips
-follow CXR
-UO 465/780 in 12/24 hrs
-Cr trended up - 1.8 today (1.4-1.6 on 08/14)
-platelets trended down - 68K today (88K on 08/14)- have 2 platelets available in blood bank if needed
Assessment / Plan
-
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
required extensive complex repairs & necessitated re-establishment of CPB x 2; Lysis of extensive circumferential adhesions; repair of a minor injury to the innominate vein; Open exposure of L CHUCK TENDER (assisted by vascular surgery) w/ proximal and
distal control on 08/13/[address] Delatorre, pod #2
- Admitted on 08/13/24 for elective cath for exertional CP and abnormal stress test
- Cath 08/13/24 with successful PCI of 80% in-stent restenosis including the distal margin of the stent leading into the [place] vessel
and successful PCI of the 90% proximal stent edge restenosis, complicated by DE LOS SANTOS dissection.
- hx mechanical AVR /CABG [place] [address] Pal
- NSTEMI with 80% stenosis of LAD at DE LOS SANTOS anastomosis requiring LAD stent in 04/18/24- last Plavix dose was 08/11/24
- EF 45-50% by TTE 04/2024
- Chronic diastolic CHF
- HTN/HLD
- DM II ( on Trulicity and Jardiance)
- Coumadin anticoagulation for mechanical AVR - last dose 08/10/24
- Spinal stenosis L4-L5
- L knee arthroscopy 2012
- Cataract extraction
- Acute postop blood loss anemia in setting of preop coagulopathy (INR was 2.68 preop)- s/p multiple transfusions (13 pRBCs)
- Acute postop coagulopathy (4 FFPs, 1 cryo, Protamine)
- Acute postop thrombocytopenia (4 platelets)
- Acute cardiogenic shock
- Acute postop atelectasis
- Acute postop hypovolemia with subsequent hypervolemia
Discussed patient care with: Nursing and Care Team
Subjective
-
Date of Service: August 15, 2024
Objective Data
-
PT 21.1 Sec (11.4-14.6) H 08/14/24 10:41
INR 1.77 08/14/24 10:41
APTT 36.8 Sec (23.4-35.0) H 08/14/24 10:41
Vital Signs
Vital Signs
Temp Pulse Resp BP Pulse Ox
98.2 F 74 16 143/79 94
08/15/24 03:00 08/15/24 03:15 08/15/24 03:00 08/13/24 06:52 08/15/24 03:15
CT Intake/Output/Weight
08/14/24 08/14/24 08/15/24
06:59 18:59 06:59
Intake Total 3637.5 / 4640.6 2781.3 / 3752.9 971.6 / 3752.9
Output Total 1325 / 1885 645 / 1260 615 / 1260
Balance 2312.5 / 2755.6 2136.3 / 2492.9 356.6 / 2492.9
SaO2: 94
Physical Exam
-
General: Other (sedated, intubated)
Cardiovascular: Regular rate & rhythm, No Murmurs and No Rub
Respiratory: Decreased Breath Sounds
Sternum: Other (open chest)
Incision: Clean and Dry
Abdomen: soft, nontender, +decreased bowel sounds
Extremities: Edema +1 (DPs and PTs by Doppler b/l)
Data Reviewed
-
Lab Results: Results Reviewed
Medications: Active Meds Reviewed
Chest X-Ray: Report Reviewed and Image Reviewed
ECG: Report Reviewed and Image Reviewed
[2024-08-15] MEDS: NITRO-BID 0.5 INCH TOPICAL (05:50)
[2024-08-15] MEDS: TYLENOL PO ×3 (05:51→21:19)
[2024-08-15] MEDS: BUMEX 50 IV ×3 (06:02→23:00)
[2024-08-15 07:10] LABS: Glucose - Point of Care 119 mg/dl (70-99)
[2024-08-15] MEDS: PITRESSIN 100 IV (07:34)
--- NOTE | 2024-08-15 07:36 | W.PN.INTV ---
Today's Communication / Plan
Recommendations
Continues on vecuronium, propofol and fentanyl
Ventilator settings reviewed
Continues on Bumex, norepinephrine, dobutamine, vasopressin
For OR closure today
Spontaneous breathing trial and moves towards extubation once hemodynamically stable
Assessment
-
74-year-old male with a history of CAD underwent elective cardiac catheterization for exertional chest pain and abnormal stress test with successful PCI of 80% in-stent restenosis and successful PCI of 90% proximal stent edge restenosis complicated
by DE LOS SANTOS dissection underwent emergent pump assisted beating heart bypass with repair of RV injury as well-plate colorer consulted for postoperative ventilator/critical care management 08/14/2024.
Cardiac catheterization status post stents and DE LOS SANTOS dissection
Status post reentry sternotomy, repair of innominate vein injury, repair of RV injury, pump assist beating heart bypass GSV to LAD, repair of SVC/innominate vein-Dr. Delatorre 08/13/2024
Ventilator dependent respiratory failure postoperatively
Leukocytosis
Anemia-normocytic
Hyperglycemia-A1c 6.5
Conditions present prior to admission:
CAD/CABG 2008/stent-LAD 2023.
CHF EF 45%.
Hypertension.
Hyperlipidemia.
Diabetes.
PAT-resolved with 80 pound weight loss
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
Spinal stenosis.
Tremors
Left knee arthroscopy.
Cataract.
Plan
Ventilator settings reviewed
FiO2 will be weaned
Minute ventilation will be adjusted
Arterial blood gases will be monitored
Spontaneous breathing trial will likely be attempted post closure today
Patient on vecuronium-adequate analgesia and sedation should continue
Continue propofol and fentanyl
Pulmonary artery catheter parameters will be followed-cardiac index follow-up closely
Pressors/antihypertensive/inotropes/diuretics will be provided as needed-currently on Bumex drip, norepinephrine, dobutamine, vasopressin
Monitor chest tube output
Monitor hemoglobin
Monitor platelet count and coags
Transfuse blood product if needed
CT surgery following chest tubes
Monitor blood sugar
Insulin drip per protocol
Monitor renal function
Monitor hemoglobin and platelets
Transfuse as needed
Aspiration precautions
VAP prevention protocol
DVT prophylaxis
Early nutrition
Early mobilization
Patient followed for obstructive sleep apnea by Dr. Jin-initially seen 04/11/2021 and last seen 08/02/2021-resolution of PAT with 80 pound weight loss
Critical care statement: A total of 40 minutes of critical care time was provided for this patient today. This includes management of ventilator, spontaneous breathing trial, arterial blood gases, pressors, of unstable vital signs, evaluation of the
patient at bedside, ventilator and pressor management, reviewing the patient's pertinent medical records including radiographs, microbiology, laboratory evaluations, and discussion with primary team and critical care nursing.
Diagnostic data:
Chest x-ray 08/26/18-NAD�������
Chest x-ray 08/13/2024-endotracheal tube tip 4.4 cm above indira, mild atelectasis left base
Chest x-ray 08/14/2024-no pneumothorax, basilar opacifications
CT neck 05/03/21--severe degenerative/arthritic changes noted on the left side where the collar bone and chest bone or sternum meet -Sternoclavicular-which could explain the lump that he feels,, some carotid artery closure was noted and warrants
carotid ultrasounds, incidentally, his epiglottis also had a lot of calcifications which sometimes can be seen with people that have swallowing difficulties-Patient notified-we'll discuss carotid ultrasounds at next visit.�������
CT head angiogram 07/31/2023-no CT evidence for intracranial aneurysm
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
Brain MRA 06/28/21-no hemodynamically significant stenosis, branch occlusion or aneurysm�������
Neck MRA 06/28/21-no significant carotid plaque formation or hemodynamically significant stenosis
Echocardiogram 12/25/19-EF 65-70%�������
Echocardiogram 04/18/2024-EF 45-50%
Nuclear stress test 05/17/21-Systolic function moderately reduced, EF 41%, moderate risk study.
Cardiac catheterization 08/13/2024-successful PCI mid LAD distal stent edge haziness and 80% ISR lesion with reduction in stenosis, successful PCI 90% DE LOS SANTOS/LAD with reduction of stenosis to 0% with subsequent complication by dissection of DE LOS SANTOS graft
after post dilation
PSG around 2006 AHI-36, desaturation stefano 85%, CPAP 7-cm�������
HST-after 80 pound weight loss-05/23/21-ROSE-1.4, desaturation stefano 89%.
Subjective Dataa
Subjective Data
Date of Service:
Date of Service: August 15, 2024
Chief Complaint: Combat Control Follow Up, Pulmonary Follow Up and Vent Management Follow Up
Subjective:
Stable on the ventilator, events overnight reviewed, going to the OR for closure, review of systems unobtainable
Review of Systems
General: Unobtainable - Sedation
Objective Data
Data Reviewed
Vital Signs / I&O / Oxygen:
Vital Signs
Temp Pulse Resp BP Pulse Ox
98.3 F 76 16 143/79 94
08/15/24 07:00 08/15/24 07:00 08/15/24 07:00 08/13/24 06:52 08/15/24 07:00
Intake and Output
08/14/24 08/15/24 08/16/24
06:59 06:59 06:59
Intake Total 4509.5 / 4640.6 3918.7 / 3984.1 65.4 / 65.4
Output Total 1860 / 1885 1560 / 1635 75 / 75
Balance 2649.5 / 2755.6 2358.7 / 2349.1 -9.6 / -9.6
SaO2 [SIMV] 95
SaO2 94
Physical Exam
General: Respiratory Distress (n) and Comfortable
HEENT: Normocephalic, Anicteric and Moist Mucous Membranes
Cardiovascular: Regular Rhythm
Respiratory: Wheeze (n), Crackles (n), Non-Labored Respirations, Accessory Resp Muscle Use (n) and ET Tube
GI: Soft, Non Distended and Non Tender
Neurology: Other (Sedated on a ventilator)
Skin: Warm and Good Color
Labs/Micro/Reports
Lab Data
08/15/24 04:11
Laboratory Results
08/14/24 08/14/24 08/14/24
08:33 10:41 13:40
PT 21.1 H
INR 1.77
APTT 36.8 H
pH 7.35 7.33 L
pCO2 40 42
pO2 106 79 L
HCO3 22.1 22.1
O2 Delivery Level vent
08/14/24 08/14/24 08/14/24
15:14 17:10 20:33
PT
INR
APTT
pH 7.35 7.33 L 7.36
pCO2 38 38 38
pO2 67 L 73 L 68 L
HCO3 21.0 20.0 L 21.5
O2 Delivery Level Not Reportable Not Reportable 40% fio2
08/14/24 08/15/24 08/15/24
22:50 01:03 04:11
PT
INR
APTT
pH 7.38 7.40 7.39
pCO2 36 37 37
pO2 85 72 L 79 L
HCO3 21.3 22.9 22.4
O2 Delivery Level 60%fio2, peep 7 Vent
[2024-08-15] MEDS: LEVOPHED 258 MG IV (07:37)
--- NOTE | 2024-08-15 07:45 | PTCARENOTE ---
Assumed care of patient from progress clerk RN. Intubated, sedated, and paralyzed on the vent. Pupils 1 bilaterally and sluggish. SIMV 60 % 16 500 5 7 pulse ox of 94% via # 8 ETT at 22 LT lip. SR w/ PAC's on monitor. BIS monitor in place. RT IJ
cordis with swan at 48 cm, RT radial arterial line transducing. Lines leveled, recalibrated and flushed. Drips infusing upon handoff as follows: Levophed, Vasopressin, Dobutamine, Insulin, Vecuronium, fentanyl, propofol and bumex. See flow sheet
for titrations/totals. Chest tubes x 3 to - 10 cm suction. No air leak or crepitus noted. OGT to low intermittent suction. Minimal output observed, placement verified. Abdomen soft. Becerra draining clear carlos urine. Surgical sites unchanged.
Pulses weakly palpable. Skin warm and dry. Plan for the day discussed with team and family updated at bedside.
[2024-08-15] MEDS: ANCEF 5 IV (07:52)
[2024-08-15] MEDS: BACTROBAN 2% OINTMENT 1 APPLIC NASAL ×2 (07:52→21:00)
[2024-08-15] MEDS: LIDOCAINE 4% PATCH TOPICAL (07:53)
[2024-08-15] MEDS: NEURONTIN PO ×3 (07:53→21:18)
[2024-08-15] MEDS: MIRALAX TUBE (07:53)
[2024-08-15] MEDS: REFRESH CELLUVISC GEL 1 DROPS OPHTH ×2 (07:53→21:00)
[2024-08-15] MEDS: VITAMIN C PO (07:55)
[2024-08-15] MEDS: SENOKOT-S PO ×2 (07:55→19:43)
[2024-08-15] MEDS: NSS (PRESERVATIVE FREE) 10 ML IV (08:07)
[2024-08-15] MEDS: PROTONIX IV 40 MG IV (08:07)
--- NOTE | 2024-08-15 08:15 | PN.DE.MGMTRT ---
Insulin Management
- -
08/15/2024 Diabetes Management F/U:
Patient admitted 08/13 for cardiac cath for exertional chest pain and abnormal stress test with successful PCI of 80% in-stent restenosis and successful PCI of 90% proximal stent edge restenosis complicated by DE LOS SANTOS dissection underwent emergent pump
assisted beating heart bypass with repair of RV injury.
PMH: CAD - CABG 2008 PCI 04/2024, MD, CHF, HTN, HCL, diabetes, PAT, valve disease - mechanical AVR.
Prior to admission was taking Jardiance 25 mg daily and Trulicity 4.5 weekly on Sunday. A1C 6.5%, Cr 0.7-->1.8, eGFR 39.25 today.
POD #2 remains sedated, intubated, on Vecuronium with open chest. Plans for chest closure today.
Patient unable to interview, all information obtained from chart review and patient nurse.
Remains on Glycemic protocol insulin infusion, glucose range requiring 0.5 to 8 units of insulin per hour.
Will continue glycemic protocol today. Will follow and track BMP for possible DKA as patient was taking Jardiance and Trulicity; and for readiness to transition off insulin infusion. Discussed with nurse.
Diabetes History
- -
Type of Diabetes: 2 requiring insulin
Pre-Admission Diabetes Regimen
08/14/24 08/14/24 08/14/24
10:41 14:05 17:10
Creatinine 1.4 H 1.5 H 1.6 H
08/14/24 08/15/24 08/15/24
22:49 04:11 05:00
Creatinine 1.5 H 1.8 H Cancelled
Lab Results
Hemoglobin A1c 6.5 % (4.0-5.6) H 08/13/24 09:36
Hemoglobin A1c Cancelled 08/13/24 09:36
Insulin Pump Settings
IP Diabetes Regimen
08/14/24 08/14/24 08/14/24
08:59 10:01 10:41
Glucose 137 H
POC Glucose 106 H 96
08/14/24 08/14/24 08/14/24
11:07 13:06 14:05
Glucose 105 H
POC Glucose 137 H 105 H
08/14/24 08/14/24 08/14/24
14:59 17:10 18:44
Glucose 144 H
POC Glucose 86 143 H 120 H
08/14/24 08/14/24 08/15/24
21:13 22:49 01:02
Glucose 119 H
POC Glucose 115 H 110 H 95
08/15/24 08/15/24 08/15/24
03:11 04:11 05:00
Glucose 131 H Cancelled
POC Glucose 85
08/15/24 08/15/24
05:19 07:07
Glucose
POC Glucose 151 H 119 H
Meal type: Breakfast
Patient Education
[2024-08-15 08:46] LABS: Glucose - Point of Care 96 mg/dl (70-99)
--- NOTE | 2024-08-15 09:24 | PTCARENOTE ---
Transported to [facility] with team. Family in waiting room.
--- NOTE | 2024-08-15 10:07 | W.PN.CD ---
Addendum entered and electronically signed by Greg Aviles MD 08/15/24 15:08:
Discussed post op ECG with CTS and intra op HAILEY showed low normal EF and no wall motion abnormalities. Additionally, given recent dissection any intervention including angiography would be of limited utility.
Original Note:
Today's Communication / Plan
-
Wean inotropes as able
agree with diuresis
Impression / Plan
-
Impression/Plan: 74 y/o male with DM2, HTN, HLD, severe s/p mechanical SAVR and multivessel CAD s/p prior CABG (DE LOS SANTOS to LAD, sequential SVG to OM to RPDA) with prior PCI to the mid-LAD + LAD/DE LOS SANTOS anastamosis, admitted after PCI to ISR lesions
was complicated by DE LOS SANTOS dissection requiring emergent re-operation with SVG to LAD.
#CAD
-Chronic.
-Cath showed an 80% ISR lesion in the LAD/DE LOS SANTOS stent as well as a 90% proximal stent edge lesion, patent sequential SVG.
-PCI performed on the 80% ISR lesion (Xience Skypoint 2.25 x 18 ELLIOTT, post dilated with a 2.75 NCB in the overlap) and the 90% proximal stent edge lesion (Xience Skypoint 3.0 x 26 ELLIOTT, post dilated with a 3.0 NCB) with reduction in stenoses to 0%.
-At the end of the procedure, the lesion could not be rewired after pulling back due to tension on the balloon. Repeat angiography showed spiral dissection of the DE LOS SANTOS graft, which could not be re-wired.
-PCI of the [place] LAD was attempted, but the lesion could not be wired.
-The patient was taken for emergent CABG.
#CABG/cardiogenic shock
-Acute.
-Repeat CABG (SVG to LAD), with Dr. Delatorre, 08/13/2024.
-CABG was complicated by RV laceration by a retained sternal wire with progressive RV disruption medial to the anastamosis, requiring extensive surgical repair and emergent ECMO cannulation.
-Chest was left open at the end of the surgery, to OR today for closure
-Vascular surgery was called into the OR and performed primary repair of the peripheral cannulation site.
-PA catheter:
-PA =
-RA = 14
-CO = 3.61
-CI = 1.71
-Current gtts:
-Norepinephrine @ 5 mcg/kg/min
-Dobutamine @ 4 mcg/kg/min
-Vasopressin @ 0.04 mL/min
-Fentanyl
-Propofol
-Rocuronium
-Insulin
-Multiple transfusions for coagulopathy (PRBC x 3, Cryo x 1, FFP x 2, PLT x 1).
#Mechanical AVR
-Chronic, stable.
-Anticoagulation on hold given relative coagulopathy.
#HTN
-Chronic, currently hypotensive on pressors/inotropes.
#HLD
-Chronic.
-Resume high dose, high potency statin when taking PO.
#DM2
-Chronic.
-Insulin gtt per protocol.
Critical Care Time = 40 minutes.
Subjective/Interval History:
Remains intubated but stable, back to OR today for closure
DATA:
Cardiac catheterization/PCI, 08/13/2024:
CONCLUSIONS
1. Right dominant circulation with chronic total occlusion of the RCA, diffusely diseased and calcified left main coronary artery, a chronically totally occluded circumflex and a diffusely diseased proximal LAD with a CHILD CARE SITTER of the mid LAD status post
prior bypass (DE LOS SANTOS to LAD, sequential SVG to OM to RPDA) with prior PCI of de darrick mid LAD disease in the mid LAD extending into the DE LOS SANTOS anastomosis, now with a 90% stent edge lesion, haziness at the distal stent edge and an 80% ISR lesion in the
distal third of the stent.
2. Status post successful PCI of the distal stent edge haziness and 80% ISR (Xience Skypoint 2.25 x 18 ELLIOTT, postdilated with a 2.75 NC balloon and the stent overlap section) with reduction in stenosis to 0%, maintaining REINALDO-3 flow.
3. Status post successful PCI of the 90% proximal stent edge lesion into the DE LOS SANTOS graft (Xience Skypoint 3.0 x 28 ELLIOTT, postdilated with a 3.0 NC balloon) with reduction in stenosis to 0%, subsequently complicated by spiral dissection of the DE LOS SANTOS
graft.
4. Unsuccessful rewiring of the dissected DE LOS SANTOS graft with propagation.
5. Unsuccessful wiring of the [place] LAD.
6. Given the compromise of the DE LOS SANTOS flow, inability to successfully rewire the DE LOS SANTOS and inability to open the [place] artery, CT surgery was called to bedside. The patient's films were reviewed and the situation assessed. After it was clear that
the [place] LAD circulation was not amenable to PCI, the decision was made to take the patient for emergent bypass.
Physical Exam
Vital Signs/Labs
Vital Signs
Temp Pulse Resp BP Pulse Ox
98.4 F 78 16 143/79 94
08/15/24 08:00 08/15/24 08:00 08/15/24 08:00 08/13/24 06:52 08/15/24 09:26
08/14/24 08/15/24 08/16/24
06:59 06:59 06:59
Actual Weight 230 lb 9.656 oz 239 lb 3.225 oz
08/15/24 04:11
PT 21.1 Sec (11.4-14.6) H 08/14/24 10:41
INR 1.77 08/14/24 10:41
APTT 36.8 Sec (23.4-35.0) H 08/14/24 10:41
Magnesium 2.0 mg/dl (1.6-2.3) 08/15/24 04:11
Triglycerides 49 mg/dl (10-149) 08/13/24 18:21
Physical Exam
Constitutional: Other (intubated sedated )
EENT: Anicteric
Cardiovascular: Rhythm & rate is regular
Respiratory: Other (intubated)
GI: Soft
Neuro/Psych: Other (sedated)
Data Reviewed
-
Date of Service: August 15, 2024
Medical Decision Making: Reviewed Test Results
EKG: Tracing Personally Visualized and interpreted (sr)
Echo: Report Reviewed by me
Labs: Labs Reviewed by me
--- NOTE | 2024-08-15 10:49 | W.CVOR.SURPR ---
[facility] Surgeon Immed Pre Op
-
I have examined this patient prior to performance of the scheduled procedure.
The patient's condition is unchanged from the time of the dictated/written History and
Physical and the patient is able to undergo the scheduled procedure.
--- NOTE | 2024-08-15 10:50 | W.IMMPOSTOP ---
Addendum entered and electronically signed by Patrice Delatorre MD 08/15/24 11:38:
[id number]
Original Note:
Surgical Immed Post Op Note
-
CARDIAC SURGERY OPERATIVE NOTE:
Preoperative Dx:
Open chest
Postoperative Dx:
Same
Procedures:
1) Mediastinal exploration & washout
2) Chest closure
Surgeon:
Patrice Delatorre M.D.
Obstetrician/Gynecologist:
Lali Maier P.A.-C.; baking assistant throughout
Anesthesia:
Dionicio Jacobs M.D. and Nelsy Hyman C.R.N.A.
Findings:
Index operative CTs removed
Packing removed (2 rolls of Kerlex, 4 vaginal packing strips)
Mediastinal copiously irrigated with warm saline solution
No significant bleeding
GSV bypass appeared grossly patent, not mobilized
New CTs placed x 3
Sternum reapproximated w/o change in hemodynamics
Sternotomy reinforced w/ placement of sternal plates
Fascia - deep dermal - subcuticular layers closed w/ absorbable sutures
Post-HAILEY: Mild RV dysfuction, LVEF 50% w/ no obvious RWMA, mild TR, no other valvular heart disease; mechanical AVR is working appropriately, mean gradient 5mmHg, no AI
Intraoperative post-closure CXR obtained
Implants:
CT x 3
Sternal wires x 6
Sternal 'X' plate w/ 8 - 16mm screws
Sternal 'Square' plate w/ 3 - 14mm and 1 - 16mm screw
Complications:
None
Transfusions:
1pk PLTS transfused this AM prior to OR
2U PRBC transfused intraoperatively
Condition:
84 sinus (1.0/0.7); 133/67, 47/30, CVP 24, 92%
GTTS: levophed 6, vasopressin 0.04, bumex 1, dobutamine 4, insulin 1.4
Guarded to [facility]
--- NOTE | 2024-08-15 11:04 | PN.CDI ---
Addendum entered and electronically signed by Ruddy Galvez PA-C 08/15/24 12:07:
Pt with JULI s/p emergent Cabg
Original Note:
CDI
- -
CDI:
Physician Documentation Request
Admit Date: 08/13/24 17:[address] team,
Please review the following and provide your response in the progress notes.
Clinical Indicators:
08/15 Progress note: '-Cr trended up - 1.8 today (1.4-1.6 on 08/14)'
Laboratory Tests
08/13/24 08/14/24 08/15/24
09:36 17:10 04:11
Creatinine 0.7 1.6 H 1.8 H
Clarify which of the following accurately represents the patient's renal status:
Acute kidney injury (non-traumatic) - see criteria
Other
Criteria for JULI*
1 Increase in serum creatinine by > or = to 0.3 mg/dL (> or = to 26.5 micromol/L) within 48 hours, OR
2 Increase in serum creatinine to > or = to 1.5 times baseline, which is known or presumed to have occurred within 7 days, OR
3 Urine volume < 0.5 nL/kg/hour for six hours
Use of terms such as suspected, likely, concern for, or probable (associated with a specific diagnosis that is being evaluated, monitored, or treated as if it exists) are acceptable and can be coded in the inpatient setting, when documented at the
time of discharge.
Thank you,
Mehreen Vicente RN, BSN
CDI Specialist
[place] [facility]
Please use your independent medical judgment in providing your response.
*Source: Kidney Disease: Improving Global Outcomes (KDIGO) 2012
[2024-08-15 11:06] LABS: B.E. - POC -3.8 mmol/L; Glucose - POC 108 mg/dl (70-99); HCO3 - POC 21 mmol/L (21-28); Hematocrit - POC 23 % PCV (42-52); Hemodilution- POC No; Hemoglobin Calculated - POC 7.8; Ionized Calcium - POC 1.17 mmol/L (1.15-1.33); O2 Saturation %Calculated-POC 96.7 % (94-98); PCO2 - POC 39 mmHg (35-48); PO2 - POC 92 mmHg (83-108); Potassium - POC 4.6 mmol/L (3.5-5.1); Sodium - POC 144 mmol/L (136-145); Specimen Type - POC Arterial; pH - POC 7.35 (7.35-7.45)
[2024-08-15 11:44] LABS: Glucose - Point of Care 137 mg/dl (70-99)
[2024-08-15 11:49] LABS: B.E. -1.8 mmol/L; HCO3 23.1 mmol/L (21-28); Ionized Calcium 1.24 mMOL/L (1.15-1.33); O2 Saturation % 93.8 % (94-98); PCO2 39 mmHg (35-48); PO2 62 mmHg (83-108); Sodium 138 mMOL/L (136-145); pH 7.38 (7.35-7.45)
[2024-08-15 11:50] LABS: O2 Therapy vent
[2024-08-15 11:52] LABS: Mixed Venous O2 Saturation 55.5 %
[2024-08-15] MEDS: PRECEDEX 100 IV ×2 (11:54→12:02)
[2024-08-15 11:55] LABS: Hematocrit 32.1 % (39.0-52.0); Platelet Count 79 10^3/uL (130-400)
--- NOTE | 2024-08-15 12:00 | PTCARENOTE ---
Received pt back from [facility] team. Sedated on the vent. SIMV 70% rate 16 tv 500 psv 5 peep 8 pulse ox 91%. SR with first degree AVB with PAC'and PVC's. Rt IJ swan at 48 cm. Rt radial A line transducing. Lines leveled, recalibrated, and flushed.
Chest tubes x 3 to - 20 cm suction. No air leak or crepitus noted. Sternal dressing intact. Abdomen is soft. Becerra draining clear yellow urine. Pulses palpable. Precedex drip initiated per order.
[2024-08-15] MEDS: DILAUDID 0.5 MG IV ×2 (12:01→20:04)
[2024-08-15] MEDS: NOVOLIN R INSULIN INFUSION 100 IV (12:01)
[2024-08-15 12:03] LABS: INR 2.33; PT 25.6 Sec (11.4-14.6)
[2024-08-15 12:04] LABS: APTT 40.3 Sec (23.4-35.0)
[2024-08-15 12:08] LABS: Blood Urea Nitrogen 27 mg/dl (9-20); Calcium 8.7 mg/dl (8.4-10.2); Carbon Dioxide 23 mmol/L (22-30); Chloride 106 mmol/L (98-107); Estimated Creatinine Clearance 45 ml/min; Glucose 124 mg/dl (70-99); Potassium 4.9 mmol/L (3.5-5.1); Sodium 140 mmol/L (135-145); eGFR 39.25
[2024-08-15 12:39] LABS: Lactic Acid 2.2 mmol/L (0.7-2.0)
[2024-08-15] MEDS: VENTOLIN NEBULES 2.5 MG INH ×3 (12:41→22:24)
[2024-08-15] MEDS: NSS 500 IV (12:43)
[2024-08-15] MEDS: NITRO-BID TOPICAL ×2 (12:46→17:39)
[2024-08-15 12:58] LABS: Glucose - Point of Care 106 mg/dl (70-99)
--- NOTE | 2024-08-15 13:05 | PTCARENOTE ---
Pt bp labile at present. Levophed titrated as needed, cardene infusion primed but not needed at present time. Pulse ox dipped down in to 85-88% range. Suctioning of ETT attempted with some return of thick brown sputum. RT called and suctioned pt
again. Neb ordered and administered. Pulse ox increased post neb administration to 95%.
[2024-08-15 13:49] LABS: B.E. -1.9 mmol/L; HCO3 22.1 mmol/L (21-28); O2 Saturation % 99.5 % (94-98); PCO2 34 mmHg (35-48); PO2 128 mmHg (83-108); pH 7.42 (7.35-7.45)
--- NOTE | 2024-08-15 14:25 | PTCARENOTE ---
Sugammadex given IVP by CT VALERIANO Mendiola. Pharmacy and Anesthesia consulted prior to administration. Repeat TOF to be checked.
--- NOTE | 2024-08-15 14:40 | PTCARENOTE ---
Opening eyes spontaneously and to voice. Not following any commands as of yet. Will continue to monitor closely.
[2024-08-15 15:02] LABS: Glucose - Point of Care 100 mg/dl (70-99)
[2024-08-15] MEDS: DILAUDID 0.25 MG IV ×3 (15:30→21:55)
[2024-08-15 15:53] LABS: Hematocrit 31.9 % (39.0-52.0); Hemoglobin 11.1 g/dL (13.0-18.0); Platelet Count 79 10^3/uL (130-400)
[2024-08-15 17:01] LABS: Glucose - Point of Care 110 mg/dl (70-99)
[2024-08-15 17:05] LABS: B.E. -1.3 mmol/L; HCO3 22.7 mmol/L (21-28); Ionized Calcium 1.18 mMOL/L (1.15-1.33); O2 Saturation % 96.8 % (94-98); PCO2 35 mmHg (35-48); PO2 71 mmHg (83-108); Potassium 4.2 mMOL/L (3.5-5.1); Sodium 139 mMOL/L (136-145); pH 7.42 (7.35-7.45)
--- NOTE | 2024-08-15 17:06 | PTCARENOTE ---
Becoming more awake . Able to nod head at times with questions and over breaathing the vent at times. Pt is hypertensive when awake. Cardene adjusted as tolerated.
[2024-08-15 17:08] LABS: Mixed Venous O2 Saturation 57.8 %
[2024-08-15 17:17] LABS: Lactic Acid 2.2 mmol/L (0.7-2.0)
[2024-08-15 17:20] LABS: Blood Urea Nitrogen 29 mg/dl (9-20); Calcium 8.5 mg/dl (8.4-10.2); Carbon Dioxide 23 mmol/L (22-30); Chloride 107 mmol/L (98-107); Estimated Creatinine Clearance 45 ml/min; Glucose 102 mg/dl (70-99); Potassium 4.2 mmol/L (3.5-5.1); Sodium 139 mmol/L (135-145); eGFR 39.25
--- NOTE | 2024-08-15 17:39 | PTCARENOTE ---
pulse ox dipping down again into 88-90 % range. Discussed with CT TUBE BENDER additional Neb ordered and currently being administered. Otherwise VSS. Medicated for pain as pt nodding head yes when asked if he was in pain. Resting at present
[2024-08-15] MEDS: CALCIUM GLUCONATE 100 IV (17:54)
[2024-08-15 18:43] LABS: Glucose - Point of Care 84 mg/dl (70-99)
--- NOTE | 2024-08-15 20:45 | PTCARENOTE ---
Patient received resting in bed. Family at bedside. Patient opens eyes to verbal and tactile stimulation. Pupils size 2 with equal reaction. Patient will nod head appropriately to simple verbal commands. Slightly moves extremities. Patient
with episodes of restlessness. IV Dilaudid 0.25 mg for pain management. Patient remains intubated. #8.0 ETT 22cm Center lip. Ventilator - SIMV settings: Rate 16, TV 600, PS 5 PEEP 8, FiO2 50%. SaO2 93%. Minimal secretions. Mouth care
provided. Three chest tubes - Mediastinal x3 - Intact and patent - 5ml red drainage - No air leak - Dressing intact. Sinus Rhythm to Sinus Tachycardia. Occasional PAC and PVC. Heart rate 90-100. Patient continues on Dobutamine gtt, Bumex gtt,
Precedex gtt, Insulin gtt and on/off Cardene gtt. Abdomen round, soft, obese. Hypoactive bowel sounds. No BM. No vomiting. Becerra catheter - Temperature sensing - Ebonie urine - Outputs as documented. Right [place] Cordis with [place] Chantal catheter.
Right radial arterial line. A-Line, PAP and CVP to pressure bag/saline flush - Flush without difficulty - Zeroed and calibrated - Waveforms within normal limits. C.O. 5.57 C.I. 2.64 SVR 919 PAP 32/20 (24) CVP 13. Sternal dressing intact.
Right groin dressing/sutures intact. Right lower extremity incision intact - Surgical adhesive. Left groin dressing intact. Radial pulses palpable. Positive Doppler Dorsalis pedis and Posterior tibial pulses. Assessment as documented.
[2024-08-15 21:10] LABS: Glucose - Point of Care 173 mg/dl (70-99)
[2024-08-15 21:55] LABS: HCO3 19.5 mmol/L (21-28); Ionized Calcium 1.17 mMOL/L (1.15-1.33); O2 Saturation % 97.1 % (94-98); PCO2 30 mmHg (35-48); PO2 78 mmHg (83-108); Potassium 3.8 mMOL/L (3.5-5.1); Sodium 140 mMOL/L (136-145); pH 7.42 (7.35-7.45)
[2024-08-15 21:57] LABS: Mixed Venous O2 Saturation 63.3 %
[2024-08-15] MEDS: DOBUTREX 250 MG IV (22:00)
[2024-08-15 22:08] LABS: Lactic Acid 3.5 mmol/L (0.7-2.0)
[2024-08-15 22:09] LABS: Blood Urea Nitrogen 32 mg/dl (9-20); Calcium 8.8 mg/dl (8.4-10.2); Carbon Dioxide 19 mmol/L (22-30); Chloride 106 mmol/L (98-107); Estimated Creatinine Clearance 45 ml/min; Glucose 173 mg/dl (70-99); Potassium 3.9 mmol/L (3.5-5.1); Sodium 139 mmol/L (135-145); eGFR 39.25
[2024-08-15] MEDS: SODIUM BICARBONATE 50 MEQ IV (22:35)
[2024-08-15] MEDS: KCL 50 IV (22:37)
--- NOTE | 2024-08-15 23:00 | PTCARENOTE ---
PEEP decreased from 8 to 5 per PA order (Dionicio Guthrie PA-C). Labs collected and sent. C.O. 6.25 C.I. 2.96 SVR 870 PAP 30/16 (22) CVP 12. Per PA order, Dobutamine gtt rate decreased to 3 mcq/kg/min (4.7 ml/hr). Ventilator rate decreased to
12. 1 AMP Sodium bicarb given. KCL 20 mEq IV x1 per PA order. Assessment as documented.
[2024-08-15 23:11] LABS: Glucose - Point of Care 173 mg/dl (70-99)
[2024-08-16] VITALS (28 sets, daily range): BP systolic 104–149; BP diastolic 50–72; BMI 33.0
--- NOTE | 2024-08-16 00:24 | W.PN.CT ---
Today's Communication / Plan
-
Plan:
-No major issues overnight. Hemodynamically stable. Pt more awake and calm this AM since d/c of Precedex. Follows commands and moving extremities appropriately
-Pt underwent chest washout and closure yesterday 08/15/24
-Dobutamine weaned from 4 to 2 overnight, off and on Cardene gtt overnight, currently off Cardene, on bumex gtt @ 1 mg/hr and insulin gtt per protocol
-Last CI 2.41-> 2.2, MVO2 61.1% , U/O since OR 3650 mL
-Monitor chest tube output: 2meds 75/75, Rpl pleural 75/145
-Wean dobutamine as tolerated. Pt was having a lot of ectopies with dobutamine @ 4. Had tachycardia and NSVT @ 160 bpm overnight, prompting decrease in dobutamine
-Repleting K, 3.5 and Mg 1.9
-Wean off ventilator to extubate. Current vent settings: TV 600, R 12, PEEP 5, PS 5, FIO2 50%
-Keep giron catheter another day for I/O's, while on bumex gtt
-Will transition to tele phase today once off insulin gtt
-Maintain cordis
-Encourage use of IS
-OOB into chair
Assessment / Plan
-
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
required extensive complex repairs & necessitated re-establishment of CPB x 2; Lysis of extensive circumferential adhesions; repair of a minor injury to the innominate vein; Open exposure of L CUSTOMS AND IMMIGRATION OFFICER (assisted by vascular surgery) w/ proximal and
distal control on 08/13/[address] Delatorre, pod #3
-S/p Mediastinal exploration & washout/ Chest closure, by Dr. Delatorre, 08/15/24, pod#1
- Admitted on 08/13/24 for elective cath for exertional CP and abnormal stress test
- Cath 08/13/24 with successful PCI of 80% in-stent restenosis including the distal margin of the stent leading into the [place] vessel
and successful PCI of the 90% proximal stent edge restenosis, complicated by DE LOS SANTOS dissection.
- hx mechanical AVR /CABG [place] [address] Pal
- NSTEMI with 80% stenosis of LAD at DE [place] SANTOS anastomosis requiring LAD stent in 04/18/24- last Plavix dose was 08/11/24
- EF 45-50% by TTE 04/2024
- Chronic diastolic CHF
- HTN/HLD
- DM II ( on Trulicity and Jardiance)
- Coumadin anticoagulation for mechanical AVR - last dose 08/10/24
- Spinal stenosis L4-L5
- L knee arthroscopy 2012
- Cataract extraction
- Acute postop blood loss anemia in setting of preop coagulopathy (INR was 2.68 preop)- s/p multiple transfusions (13 pRBCs), transfused additional 2u PRBCs post
chest washout and closure
- Acute postop coagulopathy (4 FFPs, 1 cryo, Protamine)
- Acute postop thrombocytopenia (4 platelets), transfused additional 1 {5pk} plts post chest washout and closure
- Acute cardiogenic shock
- Acute postop atelectasis
- Acute postop hypovolemia with subsequent hypervolemia
- Acute postop pericarditis per ekg
- Acute postop pulmonary insufficiency
- Acute postop pleural effusion
Discussed patient care with: Cardiology, Nursing, Respiratory Therapy, Pharmacy and Care Team
Subjective
-
Date of Service: August 16, 2024
Pt remains intubated overnight. More awake and calmer now since off Precedex
Objective Data
-
PT 25.6 Sec (11.4-14.6) H 08/15/24 11:36
INR 2.33 08/15/24 11:36
APTT 40.3 Sec (23.4-35.0) H 08/15/24 11:36
Vital Signs
Vital Signs
Temp Pulse Resp BP Pulse Ox
99.6 F 123 12 130/61 93
08/15/24 23:00 08/15/24 23:30 08/15/24 23:24 08/15/24 23:24 08/15/24 23:30
CT Intake/Output/Weight
08/15/24 08/15/24 08/16/24
06:59 18:59 06:59
Intake Total 1137.4 / 3984.1 793.8 / 1208.2 414.4 / 1208.2
Output Total 915 / 1635 1530 / 2580 1050 / 2580
Balance 222.4 / 2349.1 -736.2 / -1371.8 -635.6 / -1371.8
SaO2: 93 (TV 600, R 12, PEEP 5, PS 5, Fio2 50%)
Physical Exam
-
General: Awake, Oriented and AOx3
Cardiovascular: Regular rate & rhythm, No Murmurs, Rub (acute pericarditis per EKG) and No Gallop
Respiratory: Decreased Breath Sounds (at bases, otherwise clear )
Sternum: Stable
Incision: Clean, Dry, Intact and Dressing Intact
Extremities: Edema +1
Data Reviewed
-
Lab Results: Results Reviewed
Medications: Active Meds Reviewed
Chest X-Ray: Report Reviewed and Image Reviewed
ECG: Report Reviewed and Image Reviewed
[2024-08-16] MEDS: CARDENE 200 IV (00:25)
[2024-08-16] MEDS: DILAUDID 0.5 MG IV ×3 (00:35→09:22)
[2024-08-16] MEDS: CALCIUM GLUCONATE 100 IV ×2 (00:58→12:27)
[2024-08-16 01:06] LABS: Glucose - Point of Care 138 mg/dl (70-99)
--- NOTE | 2024-08-16 01:30 | PTCARENOTE ---
C.O. 6.08 C.I. 2.88 SVR 802 PAP 32/18 (23) CVP 11. Dobutamine gtt rate decreased to 2 mcq/kg/min (3.1 ml/hr). IV Dilaudid 0.5 mg for pain management. Cardene gtt off. Calcium Gluconate 2 gram/100 ml over 1hr for Ionized Calcium 1.17.
Assessment/Interventions as documented.
[2024-08-16] MEDS: DILAUDID 0.25 MG IV ×4 (02:45→22:31)
[2024-08-16 03:11] LABS: Glucose - Point of Care 106 mg/dl (70-99)
[2024-08-16 04:14] LABS: B.E. 2.7 mmol/L; HCO3 26.1 mmol/L (21-28); Ionized Calcium 1.23 mMOL/L (1.15-1.33); O2 Saturation % 97.2 % (94-98); PCO2 35 mmHg (35-48); PO2 77 mmHg (83-108); pH 7.48 (7.35-7.45)
[2024-08-16 04:17] LABS: Mixed Venous O2 Saturation 61.6 %
[2024-08-16 04:31] LABS: Hematocrit 32.7 % (39.0-52.0); Hemoglobin 11.2 g/dL (13.0-18.0); INR 1.87; Mean Corp Hgb Conc. 34.3 g/dL (33.0-37.0); Mean Corpuscular Hgb 28.1 pg (27.0-31.0); Mean Platelet Volume 11.1 fL (7.4-10.4); PT 21.7 Sec (11.4-14.6); Platelet Count 90 10^3/uL (130-400); Red Blood Cell Count 3.99 10^6/uL (4.70-6.10); Red Cell Dist. Width 17.5 % (11.5-14.5); White Blood Cell Count 14.9 10^3/uL (4.8-10.8)
[2024-08-16 04:54] LABS: Lactic Acid 2.3 mmol/L (0.7-2.0)
[2024-08-16 05:14] LABS: ALT (SGPT) 26 U/L (0-50); AST (SGOT) 82 U/L (17-59); Albumin 2.7 g/dl (3.5-5.0); Alkaline Phosphatase 86 U/L (38-126); Blood Urea Nitrogen 36 mg/dl (9-20); Carbon Dioxide 25 mmol/L (22-30); Chloride 108 mmol/L (98-107); Direct Bilirubin 1.8 mg/dl (0.0-0.4); Estimated Creatinine Clearance 48 ml/min; Glucose 94 mg/dl (70-99); Magnesium 1.9 mg/dl (1.6-2.3); Potassium 3.5 mmol/L (3.5-5.1); Sodium 143 mmol/L (135-145); Total Bilirubin 3.1 mg/dl (0.2-1.3); Total Protein 4.9 g/dl (6.3-8.2); eGFR 42.04
[2024-08-16] MEDS: KCL 50 IV ×2 (05:20→06:10)
[2024-08-16 05:21] LABS: Glucose - Point of Care 106 mg/dl (70-99)
[2024-08-16] MEDS: MAGNESIUM SULFATE 50 IV ×2 (05:30→10:22)
--- NOTE | 2024-08-16 05:30 | PTCARENOTE ---
Patient given CHG bath and linens changed. Mouth care provided. Cordis/[place] dressing changed. Chest tube dressing changed. IV Dilaudid for pain management. AM labs collected and sent. EKG completed. Portable CXR completed. C.O. 5.08 C.I.
2.41 SVR 1070 PAP (23) CVP 13. Patient with runs of VT. KCL 20 mEq IV x2. Magnesium sulfate 2 gram/50 ml x1. Assessment/Interventions as documented.
[2024-08-16] MEDS: TYLENOL PO ×3 (06:13→22:29)
[2024-08-16] MEDS: NITRO-BID TOPICAL ×4 (06:13→15:10)
--- NOTE | 2024-08-16 07:17 | W.PN.INTV ---
Today's Communication / Plan
Recommendations
Wean FiO2
Increase PEEP
Pressors/inotropes/vasopressin
Bumex
Amiodarone continues
Consider thoracentesis if pleural fluid sufficient
Assessment
-
74-year-old male with a history of CAD underwent elective cardiac catheterization for exertional chest pain and abnormal stress test with successful PCI of 80% in-stent restenosis and successful PCI of 90% proximal stent edge restenosis complicated
by DE LOS SANTOS dissection underwent emergent pump assisted beating heart bypass with repair of RV injury as well-insole buffer consulted for postoperative ventilator/critical care management 08/14/2024.
Cardiac catheterization status post stents and DE LOS SANTOS dissection
Status post reentry sternotomy, repair of innominate vein injury, repair of RV injury, pump assist beating heart bypass GSV to LAD, repair of SVC/innominate vein-Dr. Delatorre 08/13/2024
Ventilator dependent respiratory failure postoperatively
Leukocytosis
Anemia-normocytic
Hyperglycemia-A1c 6.5
Conditions present prior to admission:
CAD/CABG 2008/stent-LAD 2023.
CHF EF 45%.
Hypertension.
Hyperlipidemia.
Diabetes.
PAT-resolved with 80 pound weight loss
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
Spinal stenosis.
Tremors
Left knee arthroscopy.
Cataract.
Plan
Remains critically ill sedated on a ventilator on multiple pressors and inotropes
Ventilator settings reviewed
FiO2 will be weaned
PEEP will be increased
Follow ABG
Consider thoracentesis of remaining right-sided pleural fluid-discussed with Dr. Alejandre
Spontaneous breathing trial will likely be attempted when stable
Precedex for comfort
Chest x-ray-small to moderate right greater than left pleural effusion
Pulmonary artery catheter parameters will be followed-cardiac index follow-up closely
Pressors/antihypertensive/inotropes/diuretics will be provided as needed-currently on Bumex drip, norepinephrine, dobutamine, vasopressin
Monitor chest tube output
Monitor hemoglobin
Monitor platelet count and coags
Transfuse blood product if needed
CT surgery following chest tubes
Monitor blood sugar
Insulin drip per protocol
Monitor renal function
Monitor hemoglobin and platelets
Transfuse as needed
Aspiration precautions
VAP prevention protocol
DVT prophylaxis
Early nutrition
Early mobilization
Dr. Jin reviewed with and son on 08/15/2024 and again 08/16/2024
Patient followed for obstructive sleep apnea by Dr. Jin-initially seen 2008 and more recently seen 04/11/2021 and last seen 08/02/2021-resolution of PAT with 80 pound weight loss
Critical care statement: A total of 38 minutes of critical care time was provided for this patient today. This includes management of ventilator, spontaneous breathing trial, arterial blood gases, pressors, of unstable vital signs, evaluation of the
patient at bedside, ventilator and pressor management, spontaneous breathing trial management, reviewing the patient's pertinent medical records including radiographs, microbiology, laboratory evaluations, and discussion with primary team and
critical care nursing.
Diagnostic data:
Chest x-ray 08/26/18-NAD�������
Chest x-ray 08/13/2024-endotracheal tube tip 4.4 cm above indira, mild atelectasis left base
Chest x-ray 08/14/2024-no pneumothorax, basilar opacifications
CT neck 05/03/21--severe degenerative/arthritic changes noted on the left side where the collar bone and chest bone or sternum meet -Sternoclavicular-which could explain the lump that he feels,, some carotid artery closure was noted and warrants
carotid ultrasounds, incidentally, his epiglottis also had a lot of calcifications which sometimes can be seen with people that have swallowing difficulties-Patient notified-we'll discuss carotid ultrasounds at next visit.�������
CT head angiogram 07/31/2023-no CT evidence for intracranial aneurysm
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
Brain MRA 06/28/21-no hemodynamically significant stenosis, branch occlusion or aneurysm�������
Neck MRA 06/28/21-no significant carotid plaque formation or hemodynamically significant stenosis
Echocardiogram 12/25/19-EF 65-70%�������
Echocardiogram 04/18/2024-EF 45-50%
Nuclear stress test 05/17/21-Systolic function moderately reduced, EF 41%, moderate risk study.
Cardiac catheterization 08/13/2024-successful PCI mid LAD distal stent edge haziness and 80% ISR lesion with reduction in stenosis, successful PCI 90% DE LOS SANTOS/LAD with reduction of stenosis to 0% with subsequent complication by dissection of DE LOS SANTOS graft
after post dilation
PSG around 2006 AHI-36, desaturation stefano 85%, CPAP 7-cm�������
HST-after 80 pound weight loss-05/23/21-ROSE-1.4, desaturation stefano 89%.
Subjective Dataa
Subjective Data
Date of Service:
Date of Service: August 16, 2024
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
Subjective:
Alert on the ventilator, no increase secretions, FiO2 weaned, still marginal oxygenation, no complaints of shortness of breath or chest pain
Review of Systems
General: Unobtainable - Sedation and Other (Per HPI)
Objective Data
Data Reviewed
Vital Signs / I&O / Oxygen:
Vital Signs
Temp Pulse Resp BP Pulse Ox
97.8 F 85 14 132/70 97
08/16/24 06:20 08/16/24 06:20 08/16/24 06:20 08/16/24 06:20 08/16/24 06:20
Intake and Output
08/15/24 08/16/24 08/17/24
06:59 06:59 06:59
Intake Total 3918.7 / 3984.1 1743.7 / 1743.7
Output Total 1560 / 1635 3955 / 3955
Balance 2358.7 / 2349.1 -2211.3 / -2211.3
SaO2 [SIMV] 94
SaO2 97
Physical Exam
General: Respiratory Distress (n) and Comfortable
HEENT: Normocephalic, Anicteric and Moist Mucous Membranes
Cardiovascular: Regular Rhythm
Respiratory: Wheeze (n), Crackles (n), Non-Labored Respirations, Accessory Resp Muscle Use (n) and ET Tube
GI: Soft, Non Distended and Non Tender
Neurology: Awake, Alert, AO x 3 and Other (Sedated on a ventilator)
Skin: Warm and Good Color
Labs/Micro/Reports
Lab Data
08/16/24 04:02
08/16/24 04:02
Laboratory Results
08/15/24 08/15/24 08/15/24
11:00 11:36 13:42
PT 25.6 H
INR 2.33
APTT 40.3 H
pH Cancelled 7.38 7.42
pCO2 Cancelled 39 34 L
pO2 Cancelled 62 L 128 H
HCO3 Cancelled 23.1 22.1
O2 Delivery Level Cancelled vent
08/15/24 08/15/24 08/16/24
16:55 21:44 03:59
PT
INR
APTT
pH 7.42 7.42 7.48 H
pCO2 35 30 L 35
pO2 71 L 78 L 77 L
HCO3 22.7 19.5 L 26.1
O2 Delivery Level Not Reportable
08/16/24
04:02
PT 21.7 H
INR 1.87
APTT
pH
pCO2
pO2
HCO3
O2 Delivery Level
[2024-08-16] MEDS: NOVOLIN R INSULIN INFUSION 100 IV (07:26)
[2024-08-16 07:30] LABS: Glucose - Point of Care 88 mg/dl (70-99)
--- NOTE | 2024-08-16 07:56 | PTCARENOTE ---
Pt POD 1 s/p chest closure. Intubated ETT 8 @ 22, on insulin, dobutamine, cardene, bumex gtt, cordis/[place] @ 46, rt radial bree black, CT x3. VSS, CO/CI 4.7/2.2 SVR 1116, Pt continue to diuresis, plan for extubation this AM. Currently on CPap trial
as of this Morning.
[2024-08-16] MEDS: LIDOCAINE 4% PATCH TOPICAL (08:24)
[2024-08-16 08:37] LABS: B.E. 2.9 mmol/L; HCO3 25.5 mmol/L (21-28); O2 Saturation % 95.4 % (94-98); O2 Therapy 40; PCO2 32 mmHg (35-48); PO2 67 mmHg (83-108); pH 7.51 (7.35-7.45)
[2024-08-16] MEDS: LOW STRENGTH ASPIRIN PO (09:17)
[2024-08-16] MEDS: FEOSOL PO (09:17)
[2024-08-16] MEDS: MIRALAX TUBE (09:18)
[2024-08-16] MEDS: VITAMIN C PO (09:18)
[2024-08-16] MEDS: THERAGRAN PO (09:18)
[2024-08-16] MEDS: PLAVIX PO (09:18)
[2024-08-16] MEDS: NEURONTIN PO ×3 (09:18→22:29)
[2024-08-16] MEDS: SENOKOT-S PO ×2 (09:18→20:16)
[2024-08-16] MEDS: NSS (PRESERVATIVE FREE) 10 ML IV (09:25)
[2024-08-16] MEDS: PROTONIX IV 40 MG IV (09:26)
[2024-08-16] MEDS: CORDARONE 518 MG IV (09:26)
[2024-08-16] MEDS: REFRESH CELLUVISC GEL 1 DROPS OPHTH ×2 (09:26→20:17)
[2024-08-16] MEDS: PRECEDEX 100 IV (09:33)
[2024-08-16] MEDS: HEPARIN 25000 UNITS/250 ML IV (09:36)
[2024-08-16 09:50] LABS: Glucose - Point of Care 142 mg/dl (70-99)
[2024-08-16] MEDS: FLEXBUMIN 100 IV ×2 (09:54→16:41)
[2024-08-16] MEDS: BACTROBAN 2% OINTMENT 1 APPLIC NASAL ×2 (09:58→20:17)
[2024-08-16] MEDS: ZOFRAN 4 MG IV ×2 (10:00→19:26)
[2024-08-16] MEDS: NSS IV (10:12)
[2024-08-16 10:25] LABS: APTT 37.7 Sec (23.4-35.0)
--- NOTE | 2024-08-16 10:36 | PTCARENOTE ---
Pt fail cpap trail, increased peep from 5-10 per , started heparin/amio gtt, restart percedex for rass -1, mg/K lyte replacement, continue plan to attempt to extubated today.
[2024-08-16] MEDS: KCL 100 IV ×2 (11:04→19:29)
[2024-08-16 11:05] LABS: B.E. -0.8 mmol/L; HCO3 23.4 mmol/L (21-28); Ionized Calcium 1.14 mMOL/L (1.15-1.33); O2 Saturation % 97.3 % (94-98); PCO2 36 mmHg (35-48); PO2 77 mmHg (83-108); Potassium 3.1 mMOL/L (3.5-5.1); Sodium 143 mMOL/L (136-145); pH 7.42 (7.35-7.45)
[2024-08-16 11:06] LABS: O2 Therapy 40% 10 peep
--- NOTE | 2024-08-16 12:16 | PTCARENOTE ---
Pt reassessment unchanged, remained intubated, off cpap back on SIMV will trial Cpap again later today, remain on amio/heparin/dobutamine/ percedex/bumex gtt.
[2024-08-16 12:34] LABS: Glucose - Point of Care 117 mg/dl (70-99)
--- NOTE | 2024-08-16 13:02 | W.PN.CD ---
Addendum entered and electronically signed by Anmol Gomez MD 08/16/24 18:15:
I saw and examined the patient.
The SEED CLEANING MANAGER's note was reviewed and I agree with the note.
Comment: He is awake and calm while intubated. Failed extubation due to hypoxia. On exam he has ventilator bs, rrr mechanical S2, normal s1 legs with trace edema. Agree with agreesive Diuresis with bumex gtt. Continue IV amiodarone but hopefully
can transition to BB once extubated and volume status improved. Coreg may be a good choice given the need for cardene.
will follow.
Original Note:
Today's Communication / Plan
-
Con't per CTS
IV amio for NSVT
Monitor
Impression / Plan
-
Impression/Plan: 74 y/o male with DM2, HTN, HLD, severe s/p mechanical SAVR and multivessel CAD s/p prior CABG (DE LOS SANTOS to LAD, sequential SVG to OM to RPDA) with prior PCI to the mid-LAD + LAD/DE [place] SANTOS anastamosis, admitted after PCI to ISR lesions
was complicated by DE [place] SANTOS dissection requiring emergent re-operation with SVG to LAD.
#CAD
-Chronic.
-Cath showed an 80% ISR lesion in the LAD/DE [place] SANTOS stent as well as a 90% proximal stent edge lesion, patent sequential SVG.
-PCI performed on the 80% ISR lesion (Xience Skypoint 2.25 x 18 ELLIOTT, post dilated with a 2.75 NCB in the overlap) and the 90% proximal stent edge lesion (Xience Skypoint 3.0 x 26 ELLIOTT, post dilated with a 3.0 NCB) with reduction in stenoses to 0%.
-At the end of the procedure, the lesion could not be rewired after pulling back due to tension on the balloon. Repeat angiography showed spiral dissection of the DE [place] SANTOS graft, which could not be re-wired.
-PCI of the emmonak LAD was attempted, but the lesion could not be wired.
-The patient was taken for emergent CABG.
#CABG/cardiogenic shock
-Acute.
-Repeat CABG (SVG to LAD), with Dr. Delatorre, 08/13/2024.
-CABG was complicated by RV laceration by a retained sternal wire with progressive RV disruption medial to the anastomosis, requiring extensive surgical repair and emergent ECMO cannulation.
-Chest was left open at the end of the surgery, back to OR 08/15/24 for mediastinal exploration , washout and closure
-Vascular surgery was called into the OR and performed primary repair of the peripheral cannulation site.
-Continuing with diuresis
NSVT:
-amio initiated.
#Mechanical AVR
-Chronic, stable.
- IV heparin
#HTN
-Chronic,
#HLD
-Chronic. stain
#DM2
-Chronic.
-Insulin gtt per protocol.
Subjective/Interval History:
Remains intubated but stable, occ waking trying to pull at tubes. Family at bedside.
DATA:
Cardiac catheterization/PCI, 08/13/2024:
CONCLUSIONS
1. 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
prior bypass (DE LOS SANTOS to LAD, sequential SVG to OM to RPDA) with prior PCI of de darrick mid LAD disease in the mid LAD extending into the DE [place] SANTOS anastomosis, now with a 90% stent edge lesion, haziness at the distal stent edge and an 80% ISR lesion in the
distal third of the stent.
2. Status post successful PCI of the distal stent edge haziness and 80% ISR (Xience Skypoint 2.25 x 18 ELLIOTT, postdilated with a 2.75 NC balloon and the stent overlap section) with reduction in stenosis to 0%, maintaining REINALDO-3 flow.
3. Status post successful PCI of the 90% proximal stent edge lesion into the DE LOS SANTOS graft (Xience Skypoint 3.0 x 28 ELLIOTT, postdilated with a 3.0 NC balloon) with reduction in stenosis to 0%, subsequently complicated by spiral dissection of the DE LOS SANTOS
graft.
4. Unsuccessful rewiring of the dissected DE LOS SANTOS graft with propagation.
5. Unsuccessful wiring of the emmonak LAD.
6. Given the compromise of the DE LOS SANTOS flow, inability to successfully rewire the DE LOS SANTOS and inability to open the emmonak artery, CT surgery was called to bedside. The patient's films were reviewed and the situation assessed. After it was clear that
the emmonak LAD circulation was not amenable to PCI, the decision was made to take the patient for emergent bypass.
Physical Exam
Vital Signs/Labs
Vital Signs
Temp Pulse Resp BP Pulse Ox
98.9 F 98 13 149/68 95
08/16/24 12:00 08/16/24 08:00 08/16/24 12:00 08/16/24 08:00 08/16/24 08:12
08/15/24 08/16/24 08/17/24
06:59 06:59 06:59
Actual Weight 108.5 kg 105.6 kg
08/16/24 09:09
PT 21.7 Sec (11.4-14.6) H 08/16/24 04:02
INR 1.87 08/16/24 04:02
APTT 37.7 Sec (23.4-35.0) H 08/16/24 09:49
Magnesium Cancelled 08/16/24 12:28
Triglycerides 49 mg/dl (10-149) 08/13/24 18:21
Physical Exam
Constitutional: No acute distress
Cardiovascular: Rhythm & rate is regular, Pedal edema is absent and S1S2 is normal
Respiratory: Respiratory effort normal (vented)
Neuro/Psych: Other (Occ opens eyes, intubated )
Data Reviewed
-
Date of Service: August 16, 2024
EKG: Tracing Personally Visualized and interpreted (08/16/24 EKG NSR possible pericarditis)
X-Ray/CT/US/MRI/NUC/PET: Report Reviewed by me (CXR 08/16/24 smalll bilat pleural effusions, no penumothorax)
Labs: Labs Reviewed by me
[2024-08-16 13:09] LABS: Blood Urea Nitrogen 39 mg/dl (9-20); Calcium 8.7 mg/dl (8.4-10.2); Carbon Dioxide 27 mmol/L (22-30); Chloride 106 mmol/L (98-107); Estimated Creatinine Clearance 54 ml/min; Glucose 134 mg/dl (70-99); Magnesium 3.2 mg/dl (1.6-2.3); Potassium 3.8 mmol/L (3.5-5.1); Sodium 138 mmol/L (135-145); eGFR 48.85
[2024-08-16] MEDS: REGLAN 10 MG IV ×2 (13:45→21:50)
[2024-08-16 15:01] LABS: Glucose - Point of Care 98 mg/dl (70-99)
[2024-08-16 15:14] LABS: B.E. 2.3 mmol/L; HCO3 26.4 mmol/L (21-28); Ionized Calcium 1.28 mMOL/L (1.15-1.33); O2 Saturation % 97.8 % (94-98); PCO2 38 mmHg (35-48); PO2 87 mmHg (83-108); Potassium 3.8 mMOL/L (3.5-5.1); Sodium 145 mMOL/L (136-145); pH 7.45 (7.35-7.45)
[2024-08-16 15:17] LABS: Mixed Venous O2 Saturation 65.5 %
[2024-08-16 15:26] LABS: APTT 44.9 Sec (23.4-35.0)
[2024-08-16] MEDS: OFIRMEV 100 IV (15:36)
--- NOTE | 2024-08-16 16:00 | PTCARENOTE ---
Pt reassessment unchanged, remain intubated and possibly for the rest of the night per , gtts: heparin, amio, insulin, percedex, bumex to be held tonight at 2100. Mariam, MS CTx3, PTT due @ 2100.
[2024-08-16] MEDS: DULCOLAX 10 MG RECTAL (16:41)
[2024-08-16 16:54] LABS: Glucose - Point of Care 113 mg/dl (70-99)
[2024-08-16 18:43] LABS: Glucose - Point of Care 91 mg/dl (70-99)
[2024-08-16 18:43] LABS: Blood Urea Nitrogen 41 mg/dl (9-20); Calcium 8.9 mg/dl (8.4-10.2); Carbon Dioxide 27 mmol/L (22-30); Chloride 106 mmol/L (98-107); Estimated Creatinine Clearance 54 ml/min; Glucose 93 mg/dl (70-99); Magnesium 2.5 mg/dl (1.6-2.3); Potassium 3.6 mmol/L (3.5-5.1); Sodium 144 mmol/L (135-145); eGFR 48.85
--- NOTE | 2024-08-16 20:00 | PTCARENOTE ---
Patient recieved from RN @1900. Patient lying in bed intubated. Patient responds to verbal and physical stimuli. Follows commands and moves all extremities. NSR w/PVC's HR 79 BP 139/66. Heart sounds audible. Patient intubated w/ ETT size 8 @
22cm SIMV set to RR 12, volume 600, peak flow 60, PEEP 7, FiO2 40. POX 97%. Lung sounds audible bilateral anteriorly but diminished. 3 mediastinal chest tubes. draining red fluid. set to -20 w/ no crepitus or tidaling. Bowel sounds
hypoactive. Intermittent nausea when pain meds administered. Becerra draining clear yellow urine ~ 250mL/hr. Sternal incision dressing dry and intact. Left and right groin puncture site dressing dry and intact. Right leg incisions dry and open to
air. Radial pulses present bilaterally. Pedal pulses present w/ Doppler. Amio, Heparin, Precedex, Insulin, Bumex, and Dobut infusing see worklist for details. PAMELA kincaid w/ swan @ 46. CO 4.5 CI 2.14 CVP 13. Right radial A-line patent and
intact. Right forearm PIV and left forearm PIV patent and intact.
[2024-08-16 20:57] LABS: Glucose - Point of Care 124 mg/dl (70-99)
[2024-08-16 22:00] LABS: APTT 50.3 Sec (23.4-35.0)
[2024-08-16 23:05] LABS: Glucose - Point of Care 91 mg/dl (70-99)
[2024-08-17] VITALS (23 sets, daily range): BP systolic 88–151; BP diastolic 55–93; BMI 32.0
--- NOTE | 2024-08-17 | PTCARENOTE ---
Patient reassesed. NSR w/ occasional PVC's. BP 138/70 HR 71 Ventilator SIMV POX 97%. Intermittent nausea. Dilaudid and reglan given see MAR for details. Bumex turned off at [address] PA Ed. Amio, Heparin, Dobut, Insulin, Precedex infusing.
Becerra and chest tubes draining WNL. CI ~ 2.
[2024-08-17] MEDS: NITRO-BID TOPICAL ×2 (00:33→06:01)
[2024-08-17 01:04] LABS: Glucose - Point of Care 103 mg/dl (70-99)
[2024-08-17] MEDS: FLEXBUMIN 100 IV (01:49)
[2024-08-17 03:17] LABS: Glucose - Point of Care 101 mg/dl (70-99)
[2024-08-17 03:48] LABS: B.E. 5.4 mmol/L; HCO3 28.9 mmol/L (21-28); Ionized Calcium 1.15 mMOL/L (1.15-1.33); O2 Saturation % 98.9 % (94-98); PCO2 37 mmHg (35-48); PO2 118 mmHg (83-108)
[2024-08-17 03:51] LABS: Mixed Venous O2 Saturation 59.6 %
[2024-08-17 04:01] LABS: Lactic Acid 0.9 mmol/L (0.7-2.0)
[2024-08-17 04:04] LABS: Hematocrit 29.9 % (39.0-52.0); Mean Corp Hgb Conc. 33.4 g/dL (33.0-37.0); Mean Corpuscular Volume 83.8 fL (80.0-94.0); Mean Platelet Volume 10.9 fL (7.4-10.4); Platelet Count 100 10^3/uL (130-400); Red Blood Cell Count 3.57 10^6/uL (4.70-6.10); Red Cell Dist. Width 17.8 % (11.5-14.5); White Blood Cell Count 15.4 10^3/uL (4.8-10.8)
[2024-08-17 04:09] LABS: INR 1.55; PT 18.9 Sec (11.4-14.6)
--- NOTE | 2024-08-17 04:15 | PTCARENOTE ---
Patient reassessed. NSR BP 131/69 HR 68 POX 96% Ventilator SIMV. Intermittent nausea present. Patient awakens to verbal and tactile stimuli. Patient cleaned with CHG wipes, repositioned, and gown changed.
[2024-08-17 05:04] LABS: Glucose - Point of Care 95 mg/dl (70-99)
--- NOTE | 2024-08-17 05:10 | W.PN.CT ---
Today's Communication / Plan
-
Plan:
-No major issues overnight. Hemodynamically stable. Pt remains intubated, awake and calm. Follows commands and moving extremities appropriately
-Pt underwent chest washout and closure 08/15/24
-Dobutamine remains @ 1, Precedex @ 0.1, Heparin @ 500 u/hr, insulin gtt per protocol. Bumex d/c'd last night @ 9pm
-Last CI 2.11, MVO2 59.6%, 24hrs u/o 6395. Monitor Cr 1.6, peaked @ 1.8, was 0.7-0.9 preop
-Monitor chest tubes for possible d/ct: 2meds 50/80, Rpl pleural 50/80
-Repleting K, 3.8
-LFTs trending up, Tbili 3.1-> 5.7, DBili 1.8-> 3.7 and Alk phos 86-> 209. Avoid hepatotoxic meds (Tylenol, Amiodarone, Precedex)
-Wean off ventilator to extubate. Current vent settings: TV 600, R 12, PEEP 7, PS 5, FIO2 40%
-Keep giron catheter another day for accurate I/O's
-Maintain cordis
-Encourage use of IS post extubation
-OOB into chair
-Will discuss nutritional intake
Assessment / Plan
-
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
required extensive complex repairs & necessitated re-establishment of CPB x 2; Lysis of extensive circumferential adhesions; repair of a minor injury to the innominate vein; Open exposure of L LAPPING MACHINE TENDER (assisted by vascular surgery) w/ proximal and
distal control on 08/13/[address] Delatorre, pod #4
-S/p Mediastinal exploration & washout/ Chest closure, by Dr. Delatorre, 08/15/24, pod#2
- Admitted on 08/13/24 for elective cath for exertional CP and abnormal stress test
- Cath 08/13/24 with successful PCI of 80% in-stent restenosis including the distal margin of the stent leading into the [place] vessel
and successful PCI of the 90% proximal stent edge restenosis, complicated by DE LOS SANTOS dissection.
- hx mechanical AVR /CABG [place] [address] Pal
- NSTEMI with 80% stenosis of LAD at DE LOS SANTOS anastomosis requiring LAD stent in 04/18/24- last Plavix dose was 08/11/24
- EF 45-50% by TTE 04/2024
- Chronic diastolic CHF
- HTN/HLD
- DM II ( on Trulicity and Jardiance)
- Coumadin anticoagulation for mechanical AVR - last dose 08/10/24
- Spinal stenosis L4-L5
- L knee arthroscopy 2012
- Cataract extraction
- Acute postop blood loss anemia in setting of preop coagulopathy (INR was 2.68 preop)- s/p multiple transfusions (13 pRBCs), transfused additional 2u PRBCs post
chest washout and closure
- Acute postop coagulopathy (4 FFPs, 1 cryo, Protamine)
- Acute postop thrombocytopenia (4 platelets), transfused additional 1 {5pk} plts post chest washout and closure
- Acute cardiogenic shock
- Acute postop atelectasis
- Acute postop hypovolemia with subsequent hypervolemia
- Acute postop pericarditis per ekg
- Acute postop pulmonary insufficiency
- Acute postop pleural effusion
- Acute postop JULI
- Postop VDRF
Discussed patient care with: Cardiology, Nursing, Respiratory Therapy, Pharmacy and Care Team
Subjective
-
Date of Service: August 17, 2024
Pt remains intubated, calm awake and follows commands
Objective Data
-
Lab Results
08/17/24 03:33
PT 18.9 Sec (11.4-14.6) H 08/17/24 03:33
INR 1.55 08/17/24 03:33
APTT 50.3 Sec (23.4-35.0) H 08/16/24 21:27
Vital Signs
Vital Signs
Temp Pulse Resp BP Pulse Ox
99.2 F 70 12 131/69 97
08/17/24 04:57 08/17/24 04:00 08/17/24 04:57 08/17/24 04:00 08/17/24 04:57
CT Intake/Output/Weight
08/16/24 08/16/24 08/17/24
06:59 18:59 06:59
Intake Total 949.9 / 1812.3 887.0 / 1420.1 533.1 / 1420.1
Output Total 2425 / 4315 3250 / 6195 2945 / 6195
Balance -1475.1 / -2502.7 -2363.0 / -4774.9 -2411.9 / -4774.9
SaO2: 97 (SIMV/ TV 600, R 12, PEEP 7, FIO2 40%)
Physical Exam
-
General: Awake and Other (follows commands)
Cardiovascular: Regular rate & rhythm, No Murmurs, Rub and No Gallop
Respiratory: Decreased Breath Sounds (at bases)
Sternum: Stable
Incision: Clean, Dry, Intact and Dressing Intact
Extremities: Edema +1
Data Reviewed
-
Lab Results: Results Reviewed
Medications: Active Meds Reviewed
Chest X-Ray: Report Reviewed and Image Reviewed
ECG: Report Reviewed and Image Reviewed
[2024-08-17] MEDS: PRECEDEX 100 IV (05:17)
[2024-08-17 05:21] LABS: ALT (SGPT) 35 U/L (0-50); AST (SGOT) 76 U/L (17-59); Albumin 3.6 g/dl (3.5-5.0); Alkaline Phosphatase 209 U/L (38-126); Blood Urea Nitrogen 44 mg/dl (9-20); Calcium 8.8 mg/dl (8.4-10.2); Carbon Dioxide 30 mmol/L (22-30); Chloride 105 mmol/L (98-107); Direct Bilirubin 3.7 mg/dl (0.0-0.4); Estimated Creatinine Clearance 50 ml/min; Glucose 92 mg/dl (70-99); Magnesium 2.5 mg/dl (1.6-2.3); Potassium 3.8 mmol/L (3.5-5.1); Sodium 146 mmol/L (135-145); Total Bilirubin 5.7 mg/dl (0.2-1.3); Total Protein 5.4 g/dl (6.3-8.2); eGFR 45.21
[2024-08-17] MEDS: KCL 100 IV ×2 (05:57→15:30)
[2024-08-17] MEDS: TYLENOL PO ×3 (06:01→22:46)
[2024-08-17 06:30] LABS: APTT 37.2 Sec (23.4-35.0)
[2024-08-17 07:05] LABS: Glucose - Point of Care 100 mg/dl (70-99)
--- NOTE | 2024-08-17 07:31 | W.PN.INTV ---
Today's Communication / Plan
Recommendations
Tolerated extubation
Rapid atrial fibrillation rate control
Wean oxygen
Aspiration precautions
Inotropes and diuresis as tolerated
Amiodarone
Reviewed with multiple family members at the bedside
Assessment
-
74-year-old male with a history of CAD underwent elective cardiac catheterization for exertional chest pain and abnormal stress test with successful PCI of 80% in-stent restenosis and successful PCI of 90% proximal stent edge restenosis complicated
by DE LOS SANTOS dissection underwent emergent pump assisted beating heart bypass with repair of RV injury as well-roaster supervisor consulted for postoperative ventilator/critical care management 08/14/2024.
Cardiac catheterization status post stents and DE LOS SANTOS dissection
Status post reentry sternotomy, repair of innominate vein injury, repair of RV injury, pump assist beating heart bypass GSV to LAD, repair of SVC/innominate vein-Dr. Delatorre 08/13/2024
Ventilator dependent respiratory failure postoperatively
Leukocytosis
Anemia-normocytic
Hyperglycemia-A1c 6.5
Conditions present prior to admission:
CAD/CABG 2008/stent-LAD 2023.
CHF EF 45%.
Hypertension.
Hyperlipidemia.
Diabetes.
PAT-resolved with 80 pound weight loss
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
Spinal stenosis.
Tremors
Left knee arthroscopy.
Cataract.
Plan
Remains critically ill-just extubated and now in rapid atrial fibrillation
Supplemental oxygen as needed
Incentive spirometry
Aspiration precautions
Consider thoracentesis if right effusion unable to be drained with chest tubes
Precedex weaned
Chest x-ray-small to moderate right greater than left pleural effusion
Chest x-ray 08/16/2024-stable postoperative changes
Pulmonary artery catheter parameters will be followed-cardiac index follow-up closely
Pressors/antihypertensive/inotropes/diuretics will be provided as needed-currently on Bumex drip, norepinephrine, dobutamine, vasopressin
Monitor chest tube output
Monitor hemoglobin
Monitor platelet count and coags
Transfuse blood product if needed
CT surgery following chest tubes
Atrial fibrillation rate control
Heparin drip
Amiodarone as well
Monitor blood sugar
Insulin drip per protocol
Monitor renal function
Monitor hemoglobin and platelets
Transfuse as needed
Diuresis as tolerated
Monitor renal function, electrolytes, intake/output, lower extremity edema and weight
Replace electrolytes as needed
Follow LFTs which remain elevated
Aspiration precautions
VAP prevention protocol
DVT prophylaxis
Early nutrition
Early mobilization
Dr. Jin reviewed with and son on 08/15/2024 and again 08/16/2024 and again on 08/17/2024
Patient followed for obstructive sleep apnea by Dr. Jin-initially seen 2008 and more recently seen 04/11/2021 and last seen 08/02/2021-resolution of PAT with 80 pound weight loss
Critical care statement: A total of 36 minutes of critical care time was provided for this patient today. This includes management of ventilator, spontaneous breathing trial, arterial blood gases, pressors, of unstable vital signs, evaluation of the
patient at bedside, spontaneous breathing trial management, reviewing the patient's pertinent medical records including radiographs, microbiology, laboratory evaluations, and discussion with primary team and critical care nursing.
Diagnostic data:
Chest x-ray 08/26/18-NAD�������
Chest x-ray 08/13/2024-endotracheal tube tip 4.4 cm above indira, mild atelectasis left base
Chest x-ray 08/14/2024-no pneumothorax, basilar opacifications
CT neck 05/03/21--severe degenerative/arthritic changes noted on the left side where the collar bone and chest bone or sternum meet -Sternoclavicular-which could explain the lump that he feels,, some carotid artery closure was noted and warrants
carotid ultrasounds, incidentally, his epiglottis also had a lot of calcifications which sometimes can be seen with people that have swallowing difficulties-Patient notified-we'll discuss carotid ultrasounds at next visit.�������
CT head angiogram 07/31/2023-no CT evidence for intracranial aneurysm
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
Brain MRA 06/28/21-no hemodynamically significant stenosis, branch occlusion or aneurysm�������
Neck MRA 06/28/21-no significant carotid plaque formation or hemodynamically significant stenosis
Echocardiogram 12/25/19-EF 65-70%�������
Echocardiogram 04/18/2024-EF 45-50%
Nuclear stress test 05/17/21-Systolic function moderately reduced, EF 41%, moderate risk study.
Cardiac catheterization 08/13/2024-successful PCI mid LAD distal stent edge haziness and 80% ISR lesion with reduction in stenosis, successful PCI 90% DE LOS SANTOS/LAD with reduction of stenosis to 0% with subsequent complication by dissection of DE LOS SANTOS graft
after post dilation
PSG around 2006 AHI-36, desaturation stefano 85%, CPAP 7-cm�������
HST-after 80 pound weight loss-05/23/21-ROSE-1.4, desaturation stefano 89%.
Subjective Dataa
Subjective Data
Date of Service:
Date of Service: August 17, 2024
Chief Complaint: General Manager Food Follow Up, Pulmonary Follow Up and Vent Management Follow Up
Subjective:
Tolerated extubation, no complaints of shortness of breath, has rapid atrial fibrillation, no abdominal pain, pain controlled
Review of Systems
General: Other (Per HPI)
Objective Data
Data Reviewed
Vital Signs / I&O / Oxygen:
Vital Signs
Temp Pulse Resp BP Pulse Ox
99.2 F 75 18 123/69 97
08/17/24 07:00 08/17/24 07:00 08/17/24 07:00 08/17/24 07:00 08/17/24 07:00
Intake and Output
08/16/24 08/17/24 08/18/24
06:59 06:59 06:59
Intake Total 1743.7 / 1812.3 1445.7 / 1471.7 26.0 / 26.0
Output Total 3955 / 4315 6525 / 6830 305 / 305
Balance -2211.3 / -2502.7 -5079.3 / -5358.3 -279.0 / -279.0
SaO2 [SIMV] 95
SaO2 97
Physical Exam
General: Respiratory Distress (n) and Comfortable
HEENT: Normocephalic, Anicteric and Moist Mucous Membranes
Cardiovascular: Regular Rhythm
Respiratory: Wheeze (n), Crackles (n), Non-Labored Respirations and Accessory Resp Muscle Use (n)
GI: Soft, Non Distended and Non Tender
Neurology: Awake, Alert, AO x 3 and Other (Sedated on a ventilator)
Skin: Warm and Good Color
Labs/Micro/Reports
Lab Data
08/17/24 03:33
08/17/24 03:33
Laboratory Results
08/16/24 08/16/24 08/16/24
08:27 09:49 10:56
PT
INR
APTT 37.7 H
pH 7.51 H 7.42
pCO2 32 L 36
pO2 67 L 77 L
HCO3 25.5 23.4
O2 Delivery Level 40 40% 10 peep
08/16/24 08/16/24 08/17/24
14:57 21:27 03:33
PT 18.9 H
INR 1.55
APTT 44.9 H 50.3 H 37.2 H
pH 7.45 7.50 H
pCO2 38 37
pO2 87 118 H
HCO3 26.4 28.9 H
O2 Delivery Level
--- NOTE | 2024-08-17 07:32 | PTCARENOTE ---
assumed pt from previous shift RN, pt is awake on the vent, follow simple commands, MAYES, RASS 0, CPOT 0, family at bedside. sinus rhythm on tele, BP 140/62, + doppler DP pulses. Lungs diminished, pox 97% on CPAP wean, #8 ett/ 22 cm at the lip.
hypoactive bs, medicated for intermittent nausea. Becerra draining yellow. CTs w minimal amount of drainage, post op sites stable. Right IJ cordis w swan floated to 45, PAP 32/13, CVP 8, CI 2.38. PIV x2 flush easily. plan of care reviewed w the pt and
his family.
DRIPS:
Dobutamine 1 mcg/kg/min
Amiodarone 0.5 mg/min
Heparin 5000 units/hr
Insulin titrated per glycemic protocol
[2024-08-17 07:49] LABS: Prealbumin (Transthyretin) 9.5 mg/dl (17.6-36.0)
[2024-08-17 08:14] LABS: B.E. 7.2 mmol/L; HCO3 31.2 mmol/L (21-28); Ionized Calcium 1.15 mMOL/L (1.15-1.33); O2 Saturation % 99.2 % (94-98); PCO2 41 mmHg (35-48); PO2 113 mmHg (83-108); Potassium 4.2 mMOL/L (3.5-5.1); Sodium 144 mMOL/L (136-145); pH 7.49 (7.35-7.45)
[2024-08-17 08:15] LABS: O2 Therapy vent SBT 40%/5
--- NOTE | 2024-08-17 08:24 | RESPNOTE ---
Patient received on SIMV 12/600/40%/+7/PSV 5 from previous shift. Weaned on CPAP/PSV 5/5 from 7:17a - 8am. ABG drawn on wean.
Per HOTEL GUEST SERVICE AGENT, ok to extubate. Extubated at 8:24am to 6L NC. Patient able to verbalize name and clear secretions. Spo2 94-96%
--- NOTE | 2024-08-17 08:24 | PTCARENOTE ---
pt extubated to 6L NC. Pox 95%
[2024-08-17 08:30] LABS: Glucose - Point of Care 102 mg/dl (70-99)
[2024-08-17] MEDS: NSS 500 IV (08:30)
[2024-08-17] MEDS: DIAMOX 5 MG IV (08:30)
[2024-08-17] MEDS: CORDARONE 518 MG IV (08:38)
[2024-08-17] MEDS: FEOSOL PO (08:45)
[2024-08-17] MEDS: VITAMIN C PO (08:46)
[2024-08-17] MEDS: LOW STRENGTH ASPIRIN PO (08:46)
[2024-08-17] MEDS: MIRALAX TUBE (08:46)
[2024-08-17] MEDS: SENOKOT-S PO ×2 (08:46→21:08)
[2024-08-17] MEDS: THERAGRAN PO (08:46)
[2024-08-17] MEDS: NEURONTIN PO ×3 (08:46→22:46)
[2024-08-17] MEDS: CORDARONE 103 MG IV ×3 (08:50→17:15)
[2024-08-17] MEDS: NSS (PRESERVATIVE FREE) 10 ML IV (09:13)
[2024-08-17] MEDS: REFRESH CELLUVISC GEL 1 DROPS OPHTH (09:13)
[2024-08-17] MEDS: PROTONIX IV 40 MG IV (09:13)
[2024-08-17] MEDS: ASPIRIN 300 MG RECTAL (09:14)
[2024-08-17] MEDS: LIDOCAINE 4% PATCH 1 PATCH TOPICAL (09:19)
[2024-08-17] MEDS: PLAVIX PO (09:19)
[2024-08-17] MEDS: BACTROBAN 2% OINTMENT 1 APPLIC NASAL (09:20)
--- NOTE | 2024-08-17 09:31 | PTCARENOTE ---
Pt converted from sinus rhythm to rapid AF. CT TEJINDER at bedside. Bumex gtt off, 250ml LR bolus, amiodarone bolus.
[2024-08-17 10:28] LABS: Glucose - Point of Care 126 mg/dl (70-99)
[2024-08-17 11:13] LABS: Glucose - Point of Care 131 mg/dl (70-99)
--- NOTE | 2024-08-17 12:18 | PTCARENOTE ---
CHG bath, giron and mouth care completed. Pt repositioned. DTI to intergluteal cleft and tip left great toe discolored. Wound care nurse consulted. Moisture barrier applied, optifoam to sacrum, foam pads to bilateral heels, arms and legs elevated on
pillows. Dobutamine discontinued as ordered.
[2024-08-17] MEDS: NITRO-BID 0.5 INCH TOPICAL ×2 (12:27→17:17)
[2024-08-17] MEDS: REGLAN 10 MG IV ×2 (12:27→17:17)
[2024-08-17] MEDS: XOPENEX 1.25 MG INHALANT SOLUTION INH (12:49)
[2024-08-17 13:51] LABS: Glucose - Point of Care 66 mg/dl (70-99)
[2024-08-17] MEDS: DEXTROSE 50% SYRINGE 12.5 GRAMS IV (13:56)
[2024-08-17 14:02] LABS: B.E. 7.3 mmol/L; Ionized Calcium 1.14 mMOL/L (1.15-1.33); O2 Saturation % 98.8 % (94-98); PCO2 45 mmHg (35-48); PO2 100 mmHg (83-108); Potassium 3.3 mMOL/L (3.5-5.1); Sodium 145 mMOL/L (136-145); pH 7.46 (7.35-7.45)
[2024-08-17 14:04] LABS: Mixed Venous O2 Saturation 55.7 %; O2 Therapy 40%
[2024-08-17 14:11] LABS: Glucose - Point of Care 130 mg/dl (70-99)
[2024-08-17 14:13] LABS: Magnesium 2.4 mg/dl (1.6-2.3)
[2024-08-17 14:15] LABS: APTT 58.9 Sec (23.4-35.0)
[2024-08-17] MEDS: KCL 50 IV (14:15)
[2024-08-17] MEDS: CALCIUM GLUCONATE 100 IV (14:23)
[2024-08-17 15:20] LABS: Glucose - Point of Care 94 mg/dl (70-99)
[2024-08-17 16:18] LABS: Glucose - Point of Care 120 mg/dl (70-99)
[2024-08-17] MEDS: OFIRMEV 100 IV (16:47)
[2024-08-17 17:13] LABS: Glucose - Point of Care 106 mg/dl (70-99)
[2024-08-17 17:22] LABS: Mixed Venous O2 Saturation 99.7 %
--- NOTE | 2024-08-17 17:29 | PTCARENOTE ---
pt remains in uncontrolled afib. Amiodarone boluses administered as ordered.
[2024-08-17 17:32] LABS: Blood Urea Nitrogen 48 mg/dl (9-20); Calcium 9.1 mg/dl (8.4-10.2); Carbon Dioxide 30 mmol/L (22-30); Chloride 103 mmol/L (98-107); Estimated Creatinine Clearance 44 ml/min; Glucose 106 mg/dl (70-99); Magnesium 2.4 mg/dl (1.6-2.3); Potassium 4.3 mmol/L (3.5-5.1); Sodium 138 mmol/L (135-145); eGFR 39.25
[2024-08-17] MEDS: LOPRESSOR 5 MG IV (17:45)
[2024-08-17] MEDS: NOVOLIN R INSULIN INFUSION 100 IV (17:49)
[2024-08-17 17:58] LABS: Mixed Venous O2 Saturation 50.8 %
--- NOTE | 2024-08-17 18:03 | W.PN.CD ---
Today's Communication / Plan
-
decrease amio to 0.5, given iVF bolus
monitor bp if no improvement restart vasopressor
Impression / Plan
-
Impression/Plan: 74 y/o male with DM2, HTN, HLD, severe s/p mechanical SAVR and multivessel CAD s/p prior CABG (DE LOS SANTOS to LAD, sequential SVG to OM to RPDA) with prior PCI to the mid-LAD + LAD/DE LOS SANTOS anastamosis, admitted after PCI to ISR lesions
was complicated by DE LOS SANTOS dissection requiring emergent re-operation with SVG to LAD.
#CAD
-Chronic.
-Cath showed an 80% ISR lesion in the LAD/DE LOS SANTOS stent as well as a 90% proximal stent edge lesion, patent sequential SVG.
-PCI performed on the 80% ISR lesion (Xience Skypoint 2.25 x 18 ELLIOTT, post dilated with a 2.75 NCB in the overlap) and the 90% proximal stent edge lesion (Xience Skypoint 3.0 x 26 ELLIOTT, post dilated with a 3.0 NCB) with reduction in stenoses to 0%.
-At the end of the procedure, the lesion could not be rewired after pulling back due to tension on the balloon. Repeat angiography showed spiral dissection of the DE LOS SANTOS graft, which could not be re-wired.
-PCI of the tangirnaq LAD was attempted, but the lesion could not be wired.
-The patient was taken for emergent CABG.
#CABG/cardiogenic shock
-Acute. EF post op 40-45%
-Repeat CABG (SVG to LAD), with Dr. Delatorre, 08/13/2024.
-CABG was complicated by RV laceration by a retained sternal wire with progressive RV disruption medial to the anastomosis, requiring extensive surgical repair and emergent ECMO cannulation.
-Chest was left open at the end of the surgery, back to OR 08/15/24 for mediastinal exploration , washout and closure
-Vascular surgery was called into the OR and performed primary repair of the peripheral cannulation site.
-Extubated today 08/17/24
-Continuing with diuresis, he had a great response to Bumex now putting out off the drip. Wt is still up for admission but negaiven ~10L in last 72 hours. .
-Will add GDMT as able.
#AF with RVR: new onset, on Amiodarone, still with rates in the 160's
-bp is MAP 77-->would give IV BB to help get rate under control
-Converted to ectopic atrial, bp soft with systolics in the 80's.--will decrease gtt back down to 0.5, give IV fluid bolus given aggressive diuresis, if no response add vasopressors
-on hep gtt
NSVT:
-amio initiated.
#Mechanical AVR
-Chronic, stable.
- IV heparin
#HTN
-Chronic,
#HLD
-Chronic. stain
#DM2
-Chronic.
-Insulin gtt per protocol.
Condition:
Guarded still not HD stable after extubation with RVR
CCT 30 minutes, d/w CTPA Lise Augustin
Subjective/Interval History:
Awake, without complaint. No palpitations. No cp or sob.
DATA:
Intraop HAILEY:
CONCLUSIONS
Mild Global hypokinesis with akinesis of the apical septal wall. LVEF is 40-
45% by visual inspection.
A well-seated and properly functioning mechanical aortic prosthesis is seen.
The mitral valve is heavily calcified without stenosis. Mild regurgitation is
seen.
Mild tricuspid regurgitation.
Grade III atheromatous disease of the arch and descending thoracic aorta.
Cardiac catheterization/PCI, 08/13/2024:
CONCLUSIONS
1. Right dominant circulation with chronic total occlusion of the RCA, diffusely diseased and calcified left main coronary artery, a chronically totally occluded circumflex and a diffusely diseased proximal LAD with a SECTION PLOTTER OPERATOR of the mid LAD status post
prior bypass (DE LOS SANTOS to LAD, sequential SVG to OM to RPDA) with prior PCI of de darrick mid LAD disease in the mid LAD extending into the DE LOS SANTOS anastomosis, now with a 90% stent edge lesion, haziness at the distal stent edge and an 80% ISR lesion in the
distal third of the stent.
2. Status post successful PCI of the distal stent edge haziness and 80% ISR (Xience Skypoint 2.25 x 18 ELLIOTT, postdilated with a 2.75 NC balloon and the stent overlap section) with reduction in stenosis to 0%, maintaining REINALDO-3 flow.
3. Status post successful PCI of the 90% proximal stent edge lesion into the DE LOS SANTOS graft (Xience Skypoint 3.0 x 28 ELLIOTT, postdilated with a 3.0 NC balloon) with reduction in stenosis to 0%, subsequently complicated by spiral dissection of the DE LOS SANTOS
graft.
4. Unsuccessful rewiring of the dissected DE LOS SANTOS graft with propagation.
5. Unsuccessful wiring of the tangirnaq LAD.
6. Given the compromise of the DE LOS SANTOS flow, inability to successfully rewire the DE LOS SANTOS and inability to open the tangirnaq artery, CT surgery was called to bedside. The patient's films were reviewed and the situation assessed. After it was clear that
the tangirnaq LAD circulation was not amenable to PCI, the decision was made to take the patient for emergent bypass.
Physical Exam
Vital Signs/Labs
Vital Signs
Temp Pulse Resp BP Pulse Ox
99.2 F 165 20 119/93 97
08/17/24 17:00 08/17/24 17:00 08/17/24 17:00 08/17/24 17:00 08/17/24 17:00
08/16/24 08/17/24 08/18/24
06:59 06:59 06:59
Actual Weight 105.6 kg 102.6 kg
08/17/24 03:33
08/17/24 17:11
PT 18.9 Sec (11.4-14.6) H 08/17/24 03:33
INR 1.55 08/17/24 03:33
APTT 58.9 Sec (23.4-35.0) H 08/17/24 13:43
Magnesium 2.4 mg/dl (1.6-2.3) H 08/17/24 17:11
Triglycerides 49 mg/dl (10-149) 08/13/24 18:21
Physical Exam
Constitutional: No acute distress
Cardiovascular: Rhythm/rate is irregular (when I examined rates were in the 160's, ) and Pedal edema present
Respiratory: Respiratory effort normal, Lungs clear to auscul., Wheeze Absent and Crackles Absent
Neuro/Psych: Alert
Data Reviewed
-
Date of Service: August 17, 2024
EKG: Other (tele afib with rvr in the 160's---> ectopic atrial rhythm, diffuse frankie, improved from prior)
[2024-08-17] MEDS: LEVOPHED 250 IV (18:14)
[2024-08-17 18:21] LABS: Glucose - Point of Care 126 mg/dl (70-99)
--- NOTE | 2024-08-17 18:21 | PTCARENOTE ---
Pt w 3.01 pause then converted to sinus bradycardia w HR in the 30's- 40's, bp into the 70's. LR bolus initiated and Levophed restarted. EKG obtained. CT TEJINDER at bedside.
[2024-08-17] MEDS: ALBUMIN 5% 250 IV ×2 (18:37→18:59)
[2024-08-17] MEDS: HEPARIN 25000 UNITS/250 ML IV (19:30)
--- NOTE | 2024-08-17 19:30 | PTCARENOTE ---
Patient received from RN @1900. Patient resting comfortably in bed w/ call xiao in reach. Patient AOx3. NSR BP 124/74 HR 73 CVP 12 PAP 25/9. Heart sounds audible. Radial and pedal pulses present bilaterally. POX 98% 4L NC lung sounds audible
but course anterior bilaterally. 3 mediastinal chest tubes w/ dressing dry and intact set to -20 draining red fluid WNL w/ no tidaling or crepitus. Bowel sounds hypoactive. Becerra draining clear yellow urine. Sternal incision dressing dry and
intact. Right and left groin puncture dressings dry and intact. Right leg incisions dry and intact open to air. Left tip of great toe purplish dot noted. DTI noted in gluteal fold. Levo, Heparin, Insulin, Dobut, and Amio infusing. RIJ cordis
and swan @ 46 noted. Right and left PIV patent and intact.
[2024-08-17] MEDS: MUCOMYST 20% 4 ML INH (19:46)
[2024-08-17 20:12] LABS: Glucose - Point of Care 96 mg/dl (70-99)
[2024-08-17 21:10] LABS: APTT 96.4 Sec (23.4-35.0)
[2024-08-17 22:07] LABS: Glucose - Point of Care 103 mg/dl (70-99)
[2024-08-18] VITALS (28 sets, daily range): BP systolic 103–141; BP diastolic 52–85; PULSE 78–80; O2SAT 94–99; BMI 31.0
--- NOTE | 2024-08-18 | PTCARENOTE ---
Patient assessment unchanged. NSR w/ occasional PVC's BP 134/68 HR 72 POX 96% 2L NC.
[2024-08-18 00:14] LABS: Glucose - Point of Care 111 mg/dl (70-99)
[2024-08-18] MEDS: NITRO-BID 0.5 INCH TOPICAL ×4 (00:18→17:46)
[2024-08-18] MEDS: REGLAN 10 MG IV ×2 (00:18→06:16)
[2024-08-18 02:15] LABS: Glucose - Point of Care 93 mg/dl (70-99)
--- NOTE | 2024-08-18 04:00 | PTCARENOTE ---
Patient reassessed. NSR w/ occasional PVC's BP 132/75 HR 70 POX 94% 2L NC. CHG bath and perineal care provided. Labs obtained. New IV tubing hung.
[2024-08-18 04:02] LABS: Glucose - Point of Care 99 mg/dl (70-99)
--- NOTE | 2024-08-18 04:19 | W.PN.CT ---
Today's Communication / Plan
-
Plan:
-No major issues overnight. Hemodynamically and neurologically intact. Alert and oriented x 3 (needed reorientation with year, )
-Successfully extubated yesterday 08/17 in the AM. Currently on 2L of NC with O2sats 94%
-Went into a-fib with RVR shortly after extubation yesterday, converted after 5mg IV Lopressor and amiodarone bolus but had 3sec conversion pause. No further a-fib/pause overnight
-Pt underwent chest washout and closure 08/15/24
-Dobutamine remains @ 1, Heparin @ 1200 u/hr, Amiodarone gtt @ 0.5, and insulin gtt. Bumex gtt d/c'd 08/16
-Last CI 2.02, MVO2 54.8%. 24hrs u/o 5325 mL. Monitor Cr 1.8, peaked @ 1.8, was 0.7-0.9 preop
-Keep giron catheter another day for accurate I/O's
-Monitor chest tubes for possible d/c: 2meds 3050, Rpl pleural
-Repleting K, 3.5
-Monitor elevated LFTs, Tbili 3.1-> 5.7-> 5.5, DBili 1.8-> 3.7-> 3.4 and Alk phos 86-> 209->422. Avoid hepatotoxic meds (Tylenol, Amiodarone, Precedex)
-Maintain cordis
-Encourage use of IS
-OOB into chair
-PT/OT/SP to evaluate, deconditioned and needs swallowing evaluation
-Will discuss nutritional intake, pre albumin low @ 10.3
Assessment / Plan
-
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
required extensive complex repairs & necessitated re-establishment of CPB x 2; Lysis of extensive circumferential adhesions; repair of a minor injury to the innominate vein; Open exposure of L GRIEVANCE AND APPEALS SPECIALIST (assisted by vascular surgery) w/ proximal and
distal control on 08/13/[address] Delatorre, pod #5
-S/p Mediastinal exploration & washout/ Chest closure, by Dr. Delatorre, 08/15/24, pod#3
- Admitted on 08/13/24 for elective cath for exertional CP and abnormal stress test
- Cath 08/13/24 with successful PCI of 80% in-stent restenosis including the distal margin of the stent leading into the samish vessel
and successful PCI of the 90% proximal stent edge restenosis, complicated by DE LOS SANTOS dissection.
- hx mechanical AVR /CAB[place] [address] Pal
- NSTEMI with 80% stenosis of LAD at DE LOS SANTOS anastomosis requiring LAD stent in 04/18/24- last Plavix dose was 08/11/24
- EF 45-50% by TTE 04/2024
- Chronic diastolic CHF
- HTN/HLD
- DM II ( on Trulicity and Jardiance)
- Coumadin anticoagulation for mechanical AVR - last dose 08/10/24
- Spinal stenosis L4-L5
- L knee arthroscopy 2012
- Cataract extraction
- Acute postop blood loss anemia in setting of preop coagulopathy (INR was 2.68 preop)- s/p multiple transfusions (13 pRBCs), transfused additional 2u PRBCs post
chest washout and closure
- Acute postop coagulopathy (4 FFPs, 1 cryo, Protamine)
- Acute postop thrombocytopenia (4 platelets), transfused additional 1 {5pk} plts post chest washout and closure
- Acute cardiogenic shock
- Acute postop atelectasis
- Acute postop hypovolemia with subsequent hypervolemia
- Acute postop pericarditis per ekg
- Acute postop pulmonary insufficiency
- Acute postop pleural effusion
- Acute postop hyponatremia
- Acute postop JULI
- Postop VDRF
- Acute postop afib with RVR
Discussed patient care with: Cardiology, Nursing, Respiratory Therapy, Pharmacy and Care Team
Subjective
-
Date of Service: August 18, 2024
Pt successfully extubated yesterday 08/17. C/o mild incisional pain. Appears deconditioned, otherwise feels well
Objective Data
-
PT 18.9 Sec (11.4-14.6) H 08/17/24 03:33
INR 1.55 08/17/24 03:33
APTT 96.4 Sec (23.4-35.0) H 08/17/24 20:52
Vital Signs
Vital Signs
Temp Pulse Resp BP Pulse Ox
98.9 F 70 20 132/75 94
08/18/24 04:00 08/18/24 04:00 08/18/24 04:00 08/18/24 04:00 08/18/24 04:00
CT Intake/Output/Weight
08/17/24 08/17/24 08/18/24
06:59 18:59 06:59
Intake Total 558.7 / 1471.7 1648.1 / 2734.6 1086.5 / 2734.6
Output Total 3275 / 6830 3655 / 5030 1375 / 5030
Balance -2716.3 / -5358.3 -2006.9 / -2295.4 -288.5 / -2295.4
SaO2: 94 (2L)
Physical Exam
-
General: Awake, Oriented and AOx3 ( )
Cardiovascular: Regular rate & rhythm, No Murmurs, No Rub and No Gallop
Respiratory: Decreased Breath Sounds (at bases, otherwise clear)
Sternum: Stable
Incision: Clean, Dry, Intact and Dressing Intact
Extremities: Edema +1
Data Reviewed
-
Lab Results: Results Reviewed
Medications: Active Meds Reviewed
Chest X-Ray: Report Reviewed and Image Reviewed
ECG: Report Reviewed and Image Reviewed
[2024-08-18 04:31] LABS: Mixed Venous O2 Saturation 54.8 %
[2024-08-18 04:35] LABS: B.E. 0.5 mmol/L; HCO3 25.4 mmol/L (21-28); Ionized Calcium 1.12 mMOL/L (1.15-1.33); O2 Saturation % 97.8 % (94-98); PCO2 41 mmHg (35-48); PO2 85 mmHg (83-108); Potassium 3.3 mMOL/L (3.5-5.1); Sodium 145 mMOL/L (136-145)
[2024-08-18 04:48] LABS: Hematocrit 29.8 % (39.0-52.0); Hemoglobin 9.8 g/dL (13.0-18.0); Mean Corp Hgb Conc. 32.9 g/dL (33.0-37.0); Mean Corpuscular Hgb 28.1 pg (27.0-31.0); Mean Corpuscular Volume 85.4 fL (80.0-94.0); Mean Platelet Volume 11.1 fL (7.4-10.4); Platelet Count 120 10^3/uL (130-400); Red Blood Cell Count 3.49 10^6/uL (4.70-6.10); Red Cell Dist. Width 18.2 % (11.5-14.5); White Blood Cell Count 15.9 10^3/uL (4.8-10.8)
[2024-08-18 04:53] LABS: INR 1.48; PT 18.2 Sec (11.4-14.6)
[2024-08-18 04:55] LABS: APTT 82.9 Sec (23.4-35.0)
[2024-08-18 04:57] LABS: Lactic Acid 0.9 mmol/L (0.7-2.0)
[2024-08-18] MEDS: KCL 100 IV (05:16)
[2024-08-18 05:17] LABS: Prealbumin (Transthyretin) 10.3 mg/dl (17.6-36.0)
[2024-08-18 05:30] LABS: ALT (SGPT) 53 U/L (0-50); AST (SGOT) 84 U/L (17-59); Albumin 3.5 g/dl (3.5-5.0); Alkaline Phosphatase 422 U/L (38-126); Blood Urea Nitrogen 53 mg/dl (9-20); Calcium 8.6 mg/dl (8.4-10.2); Carbon Dioxide 28 mmol/L (22-30); Chloride 104 mmol/L (98-107); Direct Bilirubin 3.4 mg/dl (0.0-0.4); Estimated Creatinine Clearance 44 ml/min; Glucose 104 mg/dl (70-99); Magnesium 2.5 mg/dl (1.6-2.3); Potassium 3.5 mmol/L (3.5-5.1); Sodium 143 mmol/L (135-145); Total Bilirubin 5.5 mg/dl (0.2-1.3); Total Protein 5.4 g/dl (6.3-8.2); eGFR 39.25
[2024-08-18 06:10] LABS: Glucose - Point of Care 120 mg/dl (70-99)
[2024-08-18] MEDS: TYLENOL PO (07:02)
[2024-08-18 08:04] LABS: Glucose - Point of Care 115 mg/dl (70-99)
[2024-08-18] MEDS: FLEXBUMIN 50 IV (08:09)
[2024-08-18] MEDS: NSS (PRESERVATIVE FREE) 10 ML IV (08:10)
[2024-08-18] MEDS: PROTONIX IV 40 MG IV (08:10)
[2024-08-18] MEDS: XOPENEX 1.25 MG INHALANT SOLUTION INH ×2 (08:11→20:33)
[2024-08-18] MEDS: MUCOMYST 20% 4 ML INH (08:11)
--- NOTE | 2024-08-18 08:13 | PN.DE.MGMTRT ---
Insulin Management
- -
08/18/2024 Diabetes Management F/U:
74 year old male with PMH: CAD - CABG 2008 PCI 04/2024, [place], CHF, HTN, HCL, diabetes, PAT, valve disease - mechanical AVR.
Presented with Spiral dissection of KYLIE-to-LAD anastomosis w/ CP and intermittent BRENDA.
POD #5 s/p Emergent Pump-assist beating heart bypass w/ GSV to LAD; Repair of RV injury; Significant progressive RV disruption just medial to the GSV-to-LAD anastomosis that required extensive complex repairs & necessitated re-establishment of CPB x
2; Lysis of extensive circumferential adhesions; repair of a minor injury to the innominate vein. POD #3 S/P Mediastinal exploration & washout/ Chest closure.
Prior to admission was taking Jardiance 25 mg daily and Trulicity 4.5 weekly on Sunday. A1C 6.5%, Cr 0.7-->1.8, eGFR 39.25 today.
Pt awake, alert, oriented, sitting up in bed, offers no complaints, able to discuss diabetes care. - Catrachita and Son at bedside, all questions answered.
Pt states he has a working glucose meter at home and checks his blood sugars daily- fasting.
Remains on Glycemic protocol, glucose range 93 to 120, requiring 0.6 to 2.3 units of insulin per hour.
Will transition off glycemic protocol to SQ insulin. He has been started on a low chol diet, poor appetite.
Give Lantus 10 units NOW, drip off at 10:30AM. Cr 1.8, eGFR 39.25 today, will hold off on starting Farxiga at this time
Start NovoLog 4 units AC, Lantus 12 units @ HS and low corrective insulin with meals.
Discussed with Nurse. Will cont to follow.
Diabetes History
- -
Type of Diabetes: 2 requiring insulin
Pre-Admission Diabetes Regimen
08/17/24 08/18/24
17:11 04:19
Creatinine 1.8 H 1.8 H
Lab Results
Hemoglobin A1c 6.5 % (4.0-5.6) H 08/13/24 09:36
Hemoglobin A1c Cancelled 08/13/24 09:36
Insulin Pump Settings
IP Diabetes Regimen
08/17/24 08/17/24 08/17/24
08:27 10:26 11:12
Glucose
POC Glucose 102 H 126 H 131 H
08/17/24 08/17/24 08/17/24
13:50 14:08 15:19
Glucose
POC Glucose 66 L 130 H 94
08/17/24 08/17/24 08/17/24
16:17 17:11 18:20
Glucose 106 H
POC Glucose 120 H 106 H 126 H
08/17/24 08/17/24 08/18/24
20:10 22:06 00:11
Glucose
POC Glucose 96 103 H 111 H
08/18/24 08/18/24 08/18/24
02:13 04:01 04:19
Glucose 104 H
POC Glucose 93 99
08/18/24 08/18/24
06:08 08:03
Glucose
POC Glucose 120 H 115 H
Patient Education
[2024-08-18] MEDS: BUMEX 50 IV (08:22)
--- NOTE | 2024-08-18 08:30 | PTCARENOTE ---
Patient received from night assistant RN; AAOx3, drowsy but responds spontaneously to RN and follows commands; Flat affect; VSS; SR with PVC's on monitor; Click present; +1 generalized anasarca; +1 DP and PT pulses, +2 radial pulses; ShaCoarse crackles
in right lung base; SpO2 92-96% on 4L NC; IS 750 ml; Occasional, moist productive cough - yellow thick sputum; CTx3 connected to -20 cm wall suction draining serosanguineous drainage - no air leak, tidaling, or crepitus noted; Hypoactive BS but
passing gas; Becerra catheter draining clear, yellow urine; Surgical sites intact; Pressure injuries to gluteal fold and tip of left great toe; Draper terrance catheter floated to 46 cm in RIJ Cordis, right radial arterial line - all lines zeroed and level;
PIVx2; Insulin, dobutamine, heparin, bumex, and amiodarone infusing - see nursing flowsheets for further details; See nursing documentation for further information.
[2024-08-18] MEDS: LIDOCAINE 4% PATCH TOPICAL (08:48)
[2024-08-18] MEDS: LOW STRENGTH ASPIRIN 81 MG PO (09:00)
[2024-08-18] MEDS: NEURONTIN 100 MG PO ×3 (09:00→22:50)
[2024-08-18] MEDS: FEOSOL 325 MG PO (09:00)
[2024-08-18] MEDS: VITAMIN C 500 MG PO (09:00)
[2024-08-18] MEDS: SENOKOT-S 1 TABLET PO (09:00)
[2024-08-18] MEDS: THERAGRAN 1 TABLET PO (09:00)
[2024-08-18] MEDS: PLAVIX 75 MG PO (09:00)
[2024-08-18] MEDS: MIRALAX 17 GRAMS TUBE (09:00)
[2024-08-18] MEDS: LANTUS 0.1 UNITS SC (09:17)
--- NOTE | 2024-08-18 09:40 | PTOTSP ---
Dysphagia Evaluation
Patient with elevated risk factors for dysphagia (i.e., s/p CABG with HAILEY, sternotomy; VDRF 08/13-08/17) and chronic dysphagia (i.e., VFSS 12/10/2020 WFL oral/pharyngeal, esophageal stasis). Vocal quality WFL-mild s/p extubation. WFL-mild oral stage
differences. No reports of pharyngeal dysphagia or overt s/s of aspiration.
Plan of care:
1. Regular - pick soft/moist for ease of intake
2. Thin Liquids
3. Medications - whole in puree (baseline)
4. Strategies: upright to 90 degrees, small sips/bites, alternate sips/bites, remain upright for 30 minutes after intake as a reflux precaution
5. Brief dysphagia f/u to ensure tolerance of diet and instruct in compensations.
[2024-08-18] MEDS: FARXIGA PO (09:54)
[2024-08-18] MEDS: NSS 500 IV (09:54)
[2024-08-18 10:02] LABS: Glucose - Point of Care 126 mg/dl (70-99)
[2024-08-18 10:03] LABS: Mixed Venous O2 Saturation 46.9 %
[2024-08-18 10:06] LABS: Mixed Venous O2 Saturation 49.8 %
--- NOTE | 2024-08-18 10:42 | W.PN.CD ---
Today's Communication / Plan
-
Amio gtt, likely po tomorrow
IV heparin
Dobutamine weaning
Diuresis
Impression / Plan
-
Impression/Plan: 74 y/o male with DM2, HTN, HLD, severe s/p mechanical SAVR and multivessel CAD s/p prior CABG (DE LOS SANTOS to LAD, sequential SVG to OM to RPDA) with prior PCI to the mid-LAD + LAD/DE LOS SANTOS anastamosis, admitted after PCI to ISR lesions
was complicated by DE LOS SANTOS dissection requiring emergent re-operation with SVG to LAD.
#CAD
-Chronic.
-Cath showed an 80% ISR lesion in the LAD/DE LOS SANTOS stent as well as a 90% proximal stent edge lesion, patent sequential SVG.
-PCI performed on the 80% ISR lesion (Xience Skypoint 2.25 x 18 ELLIOTT, post dilated with a 2.75 NCB in the overlap) and the 90% proximal stent edge lesion (Xience Skypoint 3.0 x 26 ELLIOTT, post dilated with a 3.0 NCB) with reduction in stenoses to 0%.
-At the end of the procedure, the lesion could not be rewired after pulling back due to tension on the balloon. Repeat angiography showed spiral dissection of the DE LOS SANTOS graft, which could not be re-wired.
-PCI of the karuk LAD was attempted, but the lesion could not be wired.
-The patient was taken for emergent CABG.
#CABG/cardiogenic shock
-Acute. EF post op 40-45%
-Repeat CABG (SVG to LAD), with Dr. Delatorre, 08/13/2024.
-CABG was complicated by RV laceration by a retained sternal wire with progressive RV disruption medial to the anastomosis, requiring extensive surgical repair and emergent ECMO cannulation.
-Chest was left open at the end of the surgery, back to OR 08/15/24 for mediastinal exploration , washout and closure
-Vascular surgery was called into the OR and performed primary repair of the peripheral cannulation site.
-Extubated today 08/17/24, now doing well on 2 L NC weight is still about 10 lbs up
-Continuing with diuresis Wt is still up for admission but negaiven ~10L in last 72 hours. .
-Will add GDMT as able.
#AF with RVR: new onset, on Amiodarone, still with rates in the 160's
-cont amio gtt, convert to po likely tomorrow
-on hep gtt
NSVT:
-amio initiated.
#Mechanical AVR
-Chronic, stable.
- IV heparin
#HTN
-Chronic,
#HLD
-Chronic. stain
#DM2
-Chronic.
-Insulin gtt per protocol.
Condition:
Guarded still not HD stable after extubation with RVR
CCT 30 minutes, d/w CTPA Lise Augustin
Subjective/Interval History:
Extubated feeling tired
DATA:
Intraop HAILEY:
CONCLUSIONS
Mild Global hypokinesis with akinesis of the apical septal wall. LVEF is 40-
45% by visual inspection.
A well-seated and properly functioning mechanical aortic prosthesis is seen.
The mitral valve is heavily calcified without stenosis. Mild regurgitation is
seen.
Mild tricuspid regurgitation.
Grade III atheromatous disease of the arch and descending thoracic aorta.
Cardiac catheterization/PCI, 08/13/2024:
CONCLUSIONS
1. Right dominant circulation with chronic total occlusion of the RCA, diffusely diseased and calcified left main coronary artery, a chronically totally occluded circumflex and a diffusely diseased proximal LAD with a REO ASSET MANAGER of the mid LAD status post
prior bypass (DE LOS SANTOS to LAD, sequential SVG to OM to RPDA) with prior PCI of de darrick mid LAD disease in the mid LAD extending into the DE LOS SANTOS anastomosis, now with a 90% stent edge lesion, haziness at the distal stent edge and an 80% ISR lesion in the
distal third of the stent.
2. Status post successful PCI of the distal stent edge haziness and 80% ISR (Xience Skypoint 2.25 x 18 ELLIOTT, postdilated with a 2.75 NC balloon and the stent overlap section) with reduction in stenosis to 0%, maintaining REINALDO-3 flow.
3. Status post successful PCI of the 90% proximal stent edge lesion into the DE LOS SANTOS graft (Xience Skypoint 3.0 x 28 ELLIOTT, postdilated with a 3.0 NC balloon) with reduction in stenosis to 0%, subsequently complicated by spiral dissection of the DE LOS SANTOS
graft.
4. Unsuccessful rewiring of the dissected DE LOS SANTOS graft with propagation.
5. Unsuccessful wiring of the karuk LAD.
6. Given the compromise of the DE LOS SANTOS flow, inability to successfully rewire the DE LOS SANTOS and inability to open the karuk artery, CT surgery was called to bedside. The patient's films were reviewed and the situation assessed. After it was clear that
the karuk LAD circulation was not amenable to PCI, the decision was made to take the patient for emergent bypass.
Physical Exam
Vital Signs/Labs
Vital Signs
Temp Pulse Resp BP Pulse Ox
99.4 F 68 18 139/74 99
08/18/24 10:00 08/18/24 10:00 08/18/24 10:00 08/18/24 10:00 08/18/24 10:00
08/17/24 08/18/24 08/19/24
06:59 06:59 06:59
Actual Weight 226 lb 3.108 oz 218 lb 11.177 oz
08/18/24 04:19
PT 18.2 Sec (11.4-14.6) H 08/18/24 04:19
INR 1.48 08/18/24 04:19
APTT Cancelled 08/18/24 04:30
Magnesium 2.5 mg/dl (1.6-2.3) H 08/18/24 04:19
Triglycerides 49 mg/dl (10-149) 08/13/24 18:21
Physical Exam
Constitutional: No acute distress
EENT: Anicteric
Cardiovascular: Rhythm & rate is regular
Respiratory: Other (decreased b/s b/l)
GI: Soft
Neuro/Psych: AO x 3
Data Reviewed
-
Date of Service: August 18, 2024
EKG: Tracing Personally Visualized and interpreted (sr)
Echo: Report Reviewed by me
Labs: Labs Reviewed by me
Critical Care Time (in minutes): 32
[2024-08-18 11:30] LABS: Lactic Acid 0.8 mmol/L (0.7-2.0)
--- NOTE | 2024-08-18 11:46 | WOUNDNOTE ---
L GREAT TOE TIP
--- NOTE | 2024-08-18 11:49 | WOUNDNOTE ---
[facility] RN note: Patient admitted 08/13/24 for emergent heart bypass on pump with open chest. And on 08/15/24 mediastinal washout and chest closure.
See H&P for complete history.
PMH: CAD, PAD, CABG/AVR 2008, [place], LAD stent 2023, NIDDM, HTN, on Coumadin, spinal stenosis, L knee arthroscopy.
Wound Location and type/assessment: Patient developed sacral DTI vs deep dermal stage 2 pressure injury. L great toe tip dark purple ecchymotic area (patient was on vasopressor and is on blood thinner). Linear purple ecchymotic areas on R medial
calf suspect from SCD sleeve along with previous vasopressor and on blood thinner. R groin bruising suspect from surgery. Linear red ecchymotic area R posterior thigh unsure of cause. Skin on heels intact.
Appetite: ST cleared a PO diet to start today with Ensure supplement. Patient intubated 08/13/24 and extubated 08/17/24.
Pressure redistribution devices in place: Centrella Max air bed. PT and OT to see patient. He currently needs help with turning.
Plan: Sacral shaped silicone border foam applied. Patient turned to R semi side lying position with help from ERINN Hutson. Heels off bed with pillows. Bariatric air chair cushion given. Discussed with including pressure relief measures.
Will confirm orders with CT PA and discussed with ERINN Hutson.
Care plan to be updated and will follow as needed.
Note to case management of equipment requested for discharge: Air mattress.
Recommend follow up at wound care center upon discharge.
--- NOTE | 2024-08-18 12:20 | WOUNDNOTE ---
WOC RN note: Spoke with MARQUES Erazo re: patient will need an air mattress when discharged. Patient has a sacral DTI.
--- NOTE | 2024-08-18 12:50 | PTCARENOTE ---
Chest tubes discontinued at bedside - vaseline gauze, 4x4, and ABD secured with tape on prior chest tube sites; VSS throughout and no complications noted; [place]-terrance catheter removed by RN; MVO2 sent from Cordis and [place]-terrance catheter for comparison
prior to removal
[2024-08-18 13:22] LABS: Glucose - Point of Care 183 mg/dl (70-99)
[2024-08-18 13:24] LABS: Blood Urea Nitrogen 48 mg/dl (9-20); Calcium 7.9 mg/dl (8.4-10.2); Carbon Dioxide 25 mmol/L (22-30); Chloride 107 mmol/L (98-107); Estimated Creatinine Clearance 52 ml/min; Glucose 108 mg/dl (70-99); Magnesium 2.4 mg/dl (1.6-2.3); Potassium 3.5 mmol/L (3.5-5.1); Sodium 144 mmol/L (135-145); eGFR 48.85
[2024-08-18] MEDS: TYLENOL 1000 MG PO ×2 (13:35→22:50)
[2024-08-18] MEDS: KCL 50 IV ×2 (13:35→14:39)
[2024-08-18] MEDS: NOVOLOG FLEXPEN 4 UNITS SC ×2 (13:55→17:47)
[2024-08-18] MEDS: NOVOLOG FLEXPEN-MODERATE RESISTANCE 1 UNITS SC ×2 (13:55→17:46)
[2024-08-18] MEDS: KCL 40 MEQ PO (13:56)
[2024-08-18 14:06] LABS: B.E. 2.3 mmol/L; HCO3 26.4 mmol/L (21-28); Ionized Calcium 1.13 mMOL/L (1.15-1.33); O2 Saturation % 96.8 % (94-98); PCO2 38 mmHg (35-48); PO2 75 mmHg (83-108); Potassium 3.6 mMOL/L (3.5-5.1); Sodium 139 mMOL/L (136-145); pH 7.45 (7.35-7.45)
[2024-08-18 14:11] LABS: Mixed Venous O2 Saturation 54.3 %
[2024-08-18] MEDS: HEPARIN 25000 UNITS/250 ML IV (14:46)
--- NOTE | 2024-08-18 15:58 | W.PN.INTV ---
Today's Communication / Plan
Recommendations
Extubated and doing well, weaning off pressors/dobutamine per team
Fatigue complaints, would resume home CPAP if ongoing
Otherwise encouraged IS, PT, OOB as able
Further postop management per team
Assessment
-
74-year-old male with a history of CAD underwent elective cardiac catheterization for exertional chest pain and abnormal stress test with successful PCI of 80% in-stent restenosis and successful PCI of 90% proximal stent edge restenosis complicated
by DE LOS SANTOS dissection underwent emergent pump assisted beating heart bypass with repair of RV injury as well-steam box operator consulted for postoperative ventilator/critical care management 08/14/2024.
Cardiac catheterization status post stents and DE LOS SANTOS dissection
Status post reentry sternotomy, repair of innominate vein injury, repair of RV injury, pump assist beating heart bypass GSV to LAD, repair of SVC/innominate vein-Dr. Delatorre 08/13/2024
Ventilator dependent respiratory failure postoperatively
Leukocytosis
Anemia-normocytic
Hyperglycemia-A1c 6.5
Conditions present prior to admission:
CAD/CABG 2008/stent-LAD 2023.
CHF EF 45%.
Hypertension.
Hyperlipidemia.
Diabetes.
PAT-resolved with 80 pound weight loss
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
Spinal stenosis.
Tremors
Left knee arthroscopy.
Cataract.
Plan
Extubated 08/17/24
Supplemental oxygen as needed
Incentive spirometry
Aspiration precautions
Consider thoracentesis if right effusion unable to be drained with chest tubes
Off sedation, mentating well
Complaints of fatigue
Chest x-ray-small to moderate right greater than left pleural effusion
Chest x-ray 08/16/2024-stable postoperative changes
Pulmonary artery catheter parameters will be followed-cardiac index follow-up closely
Pressors/antihypertensive/inotropes/diuretics will be provided as needed-currently on Bumex drip, dobutamine
Titrate off further per team
Monitor chest tube output
Monitor hemoglobin
Monitor platelet count and coags
Transfuse blood product if needed
CT surgery following chest tubes
Atrial fibrillation rate control
Heparin drip
Amiodarone as well
Monitor blood sugar
Insulin drip per protocol
Monitor renal function
Monitor hemoglobin and platelets
Transfuse as needed
Diuresis as tolerated
Monitor renal function, electrolytes, intake/output, lower extremity edema and weight
Replace electrolytes as needed
Follow LFTs which remain elevated
Aspiration precautions
VAP prevention protocol
DVT prophylaxis
Early nutrition
Early mobilization
Dr. Jin reviewed with and son on 08/15/2024 and again 08/16/2024 and again on 08/17/2024
Patient followed for obstructive sleep apnea by Dr. Jin-initially seen 2008 and more recently seen 04/11/2021 and last seen 08/02/2021-resolution of PAT with 80 pound weight loss
Diagnostic Data:
Chest x-ray 08/26/18-NAD�������
Chest x-ray 08/13/2024-endotracheal tube tip 4.4 cm above indira, mild atelectasis left base
Chest x-ray 08/14/2024-no pneumothorax, basilar opacifications
CT neck 05/03/21--severe degenerative/arthritic changes noted on the left side where the collar bone and chest bone or sternum meet -Sternoclavicular-which could explain the lump that he feels,, some carotid artery closure was noted and warrants
carotid ultrasounds, incidentally, his epiglottis also had a lot of calcifications which sometimes can be seen with people that have swallowing difficulties-Patient notified-we'll discuss carotid ultrasounds at next visit.�������
CT head angiogram 07/31/2023-no CT evidence for intracranial aneurysm
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
Brain MRA 06/28/21-no hemodynamically significant stenosis, branch occlusion or aneurysm�������
Neck MRA 06/28/21-no significant carotid plaque formation or hemodynamically significant stenosis
Echocardiogram 12/25/19-EF 65-70%�������
Echocardiogram 04/18/2024-EF 45-50%
Nuclear stress test 05/17/21-Systolic function moderately reduced, EF 41%, moderate risk study.
Cardiac catheterization 08/13/2024-successful PCI mid LAD distal stent edge haziness and 80% ISR lesion with reduction in stenosis, successful PCI 90% DE LOS SANTOS/LAD with reduction of stenosis to 0% with subsequent complication by dissection of DE LOS SANTOS graft
after post dilation
PSG around 2006 AHI-36, desaturation stefano 85%, CPAP 7-cm�������
HST-after 80 pound weight loss-05/23/21-ROSE-1.4, desaturation stefano 89%.
-----
Critical care statement: A total of 35 minutes of critical care time was provided for this patient today. This includes management of ventilator, spontaneous breathing trial, arterial blood gases, pressors, of unstable vital signs, evaluation of the
patient at bedside, spontaneous breathing trial management, reviewing the patient's pertinent medical records including radiographs, microbiology, laboratory evaluations, and discussion with primary team and critical care nursing.
Subjective Dataa
Subjective Data
Date of Service:
Date of Service: August 18, 2024
Chief Complaint: Firearms Inspector Follow Up, Pulmonary Follow Up and Vent Management Follow Up
Subjective:
Extubated and doing well
Feels fatigued
Remains on Dobutamine gtt
Objective Data
Data Reviewed
Vital Signs / I&O / Oxygen:
Vital Signs
Temp Pulse Resp BP Pulse Ox
99.9 F 77 23 129/65 96
08/18/24 15:00 08/18/24 15:00 08/18/24 15:00 08/18/24 15:00 08/18/24 15:00
Intake and Output
08/17/24 08/18/24 08/19/24
06:59 06:59 06:59
Intake Total 1445.7 / 1471.7 2866.8 / 2919.4 1392.5 / 1392.5
Output Total 6525 / 6830 5220 / 5410 2665 / 2665
Balance -5079.3 / -5358.3 -2353.2 / -2490.6 -1272.5 / -1272.5
SaO2 [SIMV] 95
SaO2 96
Nasal Cannula flow liters per 4
minute
Physical Exam
General: Respiratory Distress (n) and Comfortable
HEENT: Normocephalic, Anicteric and Moist Mucous Membranes
Cardiovascular: Regular Rhythm
Respiratory: Wheeze (n), Crackles (n), Non-Labored Respirations and Accessory Resp Muscle Use (n)
GI: Soft, Non Distended and Non Tender
Neurology: Awake, Alert, AO x 3 and Other (Sedated on a ventilator)
Skin: Warm and Good Color
Labs/Micro/Reports
Lab Data
08/18/24 04:19
Laboratory Results
08/17/24 08/18/24 08/18/24
20:52 04:19 04:30
PT 18.2 H
INR 1.48
APTT 96.4 H 82.9 H Cancelled
pH 7.40
pCO2 41
pO2 85
HCO3 25.4
O2 Delivery Level
08/18/24
13:52
PT
INR
APTT
pH 7.45
pCO2 38
pO2 75 L
HCO3 26.4
O2 Delivery Level
[2024-08-18] MEDS: PACERONE 200 MG PO ×2 (16:05→22:50)
--- NOTE | 2024-08-18 16:17 | CM ---
Reviewed chart. Met with Mr. Benavidez to review discharge plans. He states he is feeling okay. Prior to admission he resides with his spouse and adult granddaughter in a two story home Prior to admission he was independent with ambulation and adls.
He has a prescription plan and uses [facility]. Will continue to follow his progress. If he need inpatient rehab. he will need pre-cert with his insurance. Medical work-up in progress. The discharge plan is some level of inpatient Rehab.-
Hopefully [facility] at [place] if approved for admission and approved by insurance when medically stable.
[2024-08-18 17:34] LABS: Glucose - Point of Care 192 mg/dl (70-99)
--- NOTE | 2024-08-18 17:39 | PTCARENOTE ---
Patient transferred to [id number] and onto new bed for percussion therapy and Junior lift; Patient belongings taken to new room; Patient transferred to chair using Junior lift; Small bowel movement during transfer
[2024-08-18] MEDS: LIPITOR 40 MG PO (17:46)
[2024-08-18] MEDS: ZETIA 10 MG PO (17:46)
[2024-08-18 18:07] LABS: Blood Urea Nitrogen 56 mg/dl (9-20); Calcium 8.3 mg/dl (8.4-10.2); Carbon Dioxide 29 mmol/L (22-30); Chloride 99 mmol/L (98-107); Estimated Creatinine Clearance 46 ml/min; Glucose 201 mg/dl (70-99); Magnesium 2.4 mg/dl (1.6-2.3); Potassium 4.1 mmol/L (3.5-5.1); Sodium 137 mmol/L (135-145); eGFR 42.04
--- NOTE | 2024-08-18 20:30 | PTCARENOTE ---
Patient received resting in bed. Patient A+A+Ox3. No c/o pain or discomfort. O2 2L via NC. SpO2 95%. Chest tube dressing intact. Sinus Rhythm. Heart rate 70-80's. No c/o chest pain, pressure or discomfort. Patient with medium to large soft
brown stool. Skin protectant ointment to buttocks. Becerra catheter - Temperature sensing - Light carlos, yellow urine - Outputs at documented. Right I.J. Cordis. CVP. Right radial arterial line. A-Line and CVP - Pressure bag/Saline flush.
Zeroed and calibrated. CVP 12. Sternal dressing intact. Right groin puncture site - Surgical adhesive. Right groin dressing with sutures. Left groin dressing intact. Generalized edema. Doppler pulses - Positive Dorsalis pedis and Posterior
tibial. Protective foam dressing to sacrum. Left Great toe reddened. Bumex gtt discontinue at 2100 per PA order. Assessment as documented.
[2024-08-18] MEDS: MUCOMYST 10% 2 ML INH (20:33)
[2024-08-18] MEDS: SENOKOT-S PO (20:34)
[2024-08-18] MEDS: DOBUTREX 500 MG 250 IV (20:45)
[2024-08-18 22:38] LABS: Glucose - Point of Care 227 mg/dl (70-99)
[2024-08-18] MEDS: LANTUS 0.12 UNITS SC (22:50)
[2024-08-19] VITALS (25 sets, daily range): BP systolic 102–145; BP diastolic 45–70; PULSE 64; O2SAT 97; BMI 30.4
--- NOTE | 2024-08-19 00:30 | PTCARENOTE ---
Patient sleeping without difficulty. Assessment/Interventions as documented.
[2024-08-19] MEDS: NITRO-BID TOPICAL ×2 (00:54→06:35)
[2024-08-19 04:35] LABS: Mixed Venous O2 Saturation 61.6 %
[2024-08-19 04:37] LABS: Ionized Calcium 1.14 mMOL/L (1.15-1.33)
[2024-08-19 05:14] LABS: Hematocrit 28.7 % (39.0-52.0); Hemoglobin 9.4 g/dL (13.0-18.0); Mean Corp Hgb Conc. 32.8 g/dL (33.0-37.0); Mean Corpuscular Hgb 28.2 pg (27.0-31.0); Mean Corpuscular Volume 86.2 fL (80.0-94.0); Mean Platelet Volume 11.7 fL (7.4-10.4); Platelet Count 138 10^3/uL (130-400); Red Blood Cell Count 3.33 10^6/uL (4.70-6.10); Red Cell Dist. Width 18.2 % (11.5-14.5); White Blood Cell Count 12.1 10^3/uL (4.8-10.8)
[2024-08-19 05:18] LABS: INR 1.46
[2024-08-19 05:21] LABS: ALT (SGPT) 101 U/L (0-50); AST (SGOT) 123 U/L (17-59); Alkaline Phosphatase 472 U/L (38-126); Blood Urea Nitrogen 61 mg/dl (9-20); Calcium 7.9 mg/dl (8.4-10.2); Carbon Dioxide 33 mmol/L (22-30); Chloride 100 mmol/L (98-107); Direct Bilirubin 2.6 mg/dl (0.0-0.4); Estimated Creatinine Clearance 46 ml/min; Glucose 168 mg/dl (70-99); Magnesium 2.5 mg/dl (1.6-2.3); Potassium 3.7 mmol/L (3.5-5.1); Sodium 140 mmol/L (135-145); Total Bilirubin 4.3 mg/dl (0.2-1.3); eGFR 42.04
--- NOTE | 2024-08-19 05:30 | W.PN.CT ---
Today's Communication / Plan
-
Plan:
-No major issues overnight. Hemodynamically and neurologically intact. Alert and oriented x 3
-Successfully extubated on 08/17 in the AM. Currently on 2L of NC with O2sats 94%
-Went into a-fib with RVR shortly after extubation on 08/17, converted after 5mg IV Lopressor and amiodarone bolus but had 3sec conversion pause. No further a-fib/pause since
-Pt underwent chest washout and closure 08/15/24
-Dobutamine remains @ 1, Heparin @ 1200 u/hr, Bumex gtt from 9AM - 9PM. D/C amiodarone gtt yesterday 08/18
-MVO2 61.6% today. 24hrs u/o 5535 mL. Monitor Cr 1.7 was 1.8 yesterday, peaked @ 1.8, was 0.7-0.9 preop
-Keep giron catheter another day for accurate I/O's
-D/c'd chest tube yesterday 08/18
-Repleting K, 3.7
-Monitor elevated LFTs. Avoid hepatotoxic meds (Tylenol, Amiodarone, Precedex)
-Maintain cordis
-Encourage use of IS
-OOB into chair
-PT/OT/SP f/u, deconditioned
-Passed swallow evaluation and tolerating regular diet
-Eventual acute rehab placement ([place])
Assessment / Plan
-
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
required extensive complex repairs & necessitated re-establishment of CPB x 2; Lysis of extensive circumferential adhesions; repair of a minor injury to the innominate vein; Open exposure of [facility] (assisted by vascular surgery) w/ proximal and
distal control on 08/13/[address] Delatorre, pod #6
-S/p Mediastinal exploration & washout/ Chest closure, by Dr. Delatorre, 08/15/24, pod#4
- Admitted on 08/13/24 for elective cath for exertional CP and abnormal stress test
- Cath 08/13/24 with successful PCI of 80% in-stent restenosis including the distal margin of the stent leading into the [place] vessel
and successful PCI of the 90% proximal stent edge restenosis, complicated by DE LOS SANTOS dissection.
- hx mechanical AVR /CAB[place] [address] Pal
- NSTEMI with 80% stenosis of LAD at DE [place] SANTOS anastomosis requiring LAD stent in 04/18/24- last Plavix dose was 08/11/24
- EF 45-50% by TTE 04/2024
- Chronic diastolic CHF
- HTN/HLD
- DM II ( on Trulicity and Jardiance)
- Coumadin anticoagulation for mechanical AVR - last dose 08/10/24
- Spinal stenosis L4-L5
- L knee arthroscopy 2012
- Cataract extraction
- Acute postop blood loss anemia in setting of preop coagulopathy (INR was 2.68 preop)- s/p multiple transfusions (13 pRBCs), transfused additional 2u PRBCs post
chest washout and closure
- Acute postop coagulopathy (4 FFPs, 1 cryo, Protamine)
- Acute postop thrombocytopenia (4 platelets), transfused additional 1 {5pk} plts post chest washout and closure
- Acute cardiogenic shock
- Acute postop atelectasis
- Acute postop hypovolemia with subsequent hypervolemia
- Acute postop pericarditis per ekg
- Acute postop pulmonary insufficiency
- Acute postop pleural effusion
- Acute postop hyponatremia
- Acute postop JULI
- Postop VDRF
- Acute postop afib with RVR
Discussed patient care with: Cardiology, Nursing, Respiratory Therapy, Pharmacy and Care Team
Subjective
-
Date of Service: August 19, 2024
Objective Data
-
Lab Results
08/19/24 04:26
08/19/24 04:26
PT 18.0 Sec (11.4-14.6) H 08/19/24 04:26
INR 1.46 08/19/24 04:26
APTT Cancelled 08/18/24 04:30
Vital Signs
Vital Signs
Temp Pulse Resp BP Pulse Ox
99.2 F 71 22 108/58 93
08/19/24 04:00 08/19/24 04:30 08/19/24 04:30 08/19/24 04:00 08/19/24 04:30
CT Intake/Output/Weight
08/18/24 08/18/24 08/19/24
06:59 18:59 06:59
Intake Total 1218.7 / 2919.4 2189.3 / 2693.3 504.0 / 2693.3
Output Total 1565 / 5410 3560 / 5570 2009 / 5569
Balance -346.3 / -2490.6 -1370.7 / -2876.7 -1506.0 / -2876.7
SaO2: 93 (2L)
Physical Exam
-
General: Awake, Oriented and AOx3
Cardiovascular: Regular rate & rhythm, No Murmurs, No Rub and No Gallop
Respiratory: Decreased Breath Sounds (at bases, otherwise clear)
Sternum: Stable
Incision: Clean, Dry, Intact and Dressing Intact
Extremities: Edema +1
Data Reviewed
-
Lab Results: Results Reviewed
Medications: Active Meds Reviewed
Chest X-Ray: Report Reviewed and Image Reviewed
ECG: Report Reviewed and Image Reviewed
[2024-08-19 05:44] LABS: APTT 58.6 Sec (23.4-35.0)
[2024-08-19] MEDS: TYLENOL PO (06:35)
--- NOTE | 2024-08-19 06:35 | PTCARENOTE ---
Patient given CHG bath and linens changed. AM labs collected and sent. Bed scale weight 97.5 kg. PTT 58.6 - IV Heparin gtt rate increased by 200 units/hr. IV Heparin now infusing at 1400 units/hr (14 ml/hr). Patient A+A+Ox3. No neurological
deficits noted. KCL 40 mEq PO given per PA order. Patient's at bedside. Assessment/Interventions as documented.
[2024-08-19] MEDS: KCL 40 MEQ PO ×2 (07:00→16:05)
[2024-08-19] MEDS: MUCOMYST 10% 2 ML INH ×2 (07:24→19:43)
[2024-08-19] MEDS: XOPENEX 1.25 MG INHALANT SOLUTION INH ×2 (07:25→19:43)
[2024-08-19 08:00] LABS: Glucose - Point of Care 175 mg/dl (70-99)
--- NOTE | 2024-08-19 08:30 | PTCARENOTE ---
Patient received from police shift commander RN; AAOx3, responds spontaneously to RN and follows commands; VSS; SR with PVC's on monitor; Click present; Trace edema B/L LE; +1 DP and PT pulses, +2 radial pulses; Shallow respirations; Coarse crackles in bases;
SpO2 92-96% on 2L NC; IS 1000 ml; Frequent, strong, moist, and productive cough - yellow thick sputum; Normoactive BS; Becerra catheter draining clear, yellow urine; Surgical sites intact; Pressure injuries to gluteal fold and tip of left great toe;
SLIC present in RIJ Cordis, right radial arterial line - all lines zeroed and level; PIVx2; Dobutamine, Heparin, and Bumex infusing - see nursing flowsheets for further details; See nursing documentation for further information.
[2024-08-19] MEDS: LOW STRENGTH ASPIRIN 81 MG PO (08:37)
[2024-08-19] MEDS: NEURONTIN 100 MG PO ×3 (08:38→21:19)
[2024-08-19] MEDS: NSS (PRESERVATIVE FREE) 10 ML IV (08:38)
[2024-08-19] MEDS: VITAMIN C 500 MG PO (08:38)
[2024-08-19] MEDS: FEOSOL 325 MG PO (08:38)
[2024-08-19] MEDS: SENOKOT-S 1 TABLET PO (08:38)
[2024-08-19] MEDS: PROTONIX IV 40 MG IV (08:38)
[2024-08-19] MEDS: PACERONE 200 MG PO ×3 (08:38→21:20)
[2024-08-19] MEDS: THERAGRAN 1 TABLET PO (08:38)
[2024-08-19] MEDS: LIDOCAINE 4% PATCH TOPICAL (08:38)
[2024-08-19] MEDS: NOVOLOG FLEXPEN-MODERATE RESISTANCE 1 UNITS SC (08:39)
[2024-08-19] MEDS: PLAVIX 75 MG PO (08:39)
[2024-08-19] MEDS: NOVOLOG FLEXPEN 4 UNITS SC (08:39)
[2024-08-19] MEDS: MIRALAX TUBE (08:53)
--- NOTE | 2024-08-19 09:47 | W.PN.CD ---
Today's Communication / Plan
-
Consider restarting metoprolol
OOB
Impression / Plan
-
Impression/Plan: 74 y/o male with DM2, HTN, HLD, severe s/p mechanical SAVR and multivessel CAD s/p prior CABG (DE LOS SANTOS to LAD, sequential SVG to OM to RPDA) with prior PCI to the mid-LAD + LAD/DE [place] SANTOS anastamosis, admitted after PCI to ISR lesions
was complicated by DE [place] SANTOS dissection requiring emergent re-operation with SVG to LAD.
#CAD
-Chronic.
-Cath showed an 80% ISR lesion in the LAD/DE [place] SANTOS stent as well as a 90% proximal stent edge lesion, patent sequential SVG.
-PCI performed on the 80% ISR lesion (Xience Skypoint 2.25 x 18 ELLIOTT, post dilated with a 2.75 NCB in the overlap) and the 90% proximal stent edge lesion (Xience Skypoint 3.0 x 26 ELLIOTT, post dilated with a 3.0 NCB) with reduction in stenoses to 0%.
-At the end of the procedure, the lesion could not be rewired after pulling back due to tension on the balloon. Repeat angiography showed spiral dissection of the DE [place] SANTOS graft, which could not be re-wired.
-PCI of the [place] LAD was attempted, but the lesion could not be wired.
-The patient was taken for emergent CABG.
#CABG/cardiogenic shock
-Acute. EF post op 40-45%
-Repeat CABG (SVG to LAD), with Dr. Delatorre, 08/13/2024.
-CABG was complicated by RV laceration by a retained sternal wire with progressive RV disruption medial to the anastomosis, requiring extensive surgical repair and emergent ECMO cannulation.
-Chest was left open at the end of the surgery, back to OR 08/15/24 for mediastinal exploration , washout and closure
-Vascular surgery was called into the OR and performed primary repair of the peripheral cannulation site.
-Extubated today 08/17/24 now OOB and in tani
-Continuing with diuresis Wt is still up for admission but he is having urine output .
-Will add GDMT as able.
#AF with RVR: new onset, on Amiodarone, still with rates in the 160's
-on po amio
- consider restart metop
-on hep gtt
NSVT:
-amio initiated.
#Mechanical AVR
-Chronic, stable.
- IV heparin
- likely warfarin to start soon
#HTN
-Chronic,
#HLD
-Chronic. stain
#DM2
-Chronic.
-Insulin gtt per protocol.
Condition:
Guarded still not HD stable after extubation with RVR
CCT 30 minutes, d/w CTPA Lise Chui
Subjective/Interval History:
In chair feeling improvied
DATA:
Intraop HAILEY:
CONCLUSIONS
Mild Global hypokinesis with akinesis of the apical septal wall. LVEF is 40-
45% by visual inspection.
A well-seated and properly functioning mechanical aortic prosthesis is seen.
The mitral valve is heavily calcified without stenosis. Mild regurgitation is
seen.
Mild tricuspid regurgitation.
Grade III atheromatous disease of the arch and descending thoracic aorta.
Cardiac catheterization/PCI, 08/13/2024:
CONCLUSIONS
1. Right dominant circulation with chronic total occlusion of the RCA, diffusely diseased and calcified left main coronary artery, a chronically totally occluded circumflex and a diffusely diseased proximal LAD with a TERM[employer] REPRESENTATIVE of the mid LAD status post
prior bypass (DE LOS SANTOS to LAD, sequential SVG to OM to RPDA) with prior PCI of de dar[place] mid LAD disease in the mid LAD extending into the DE [place] SANTOS anastomosis, now with a 90% stent edge lesion, haziness at the distal stent edge and an 80% ISR lesion in the
distal third of the stent.
2. Status post successful PCI of the distal stent edge haziness and 80% ISR (Xience Skypoint 2.25 x 18 ELLIOTT, postdilated with a 2.75 NC balloon and the stent overlap section) with reduction in stenosis to 0%, maintaining REINALDO-3 flow.
3. Status post successful PCI of the 90% proximal stent edge lesion into the DE LOS SANTOS graft (Xience Skypoint 3.0 x 28 ELLIOTT, postdilated with a 3.0 NC balloon) with reduction in stenosis to 0%, subsequently complicated by spiral dissection of the DE LOS SANTOS
graft.
4. Unsuccessful rewiring of the dissected DE LOS SANTOS graft with propagation.
5. Unsuccessful wiring of the [place] LAD.
6. Given the compromise of the DE LOS SANTOS flow, inability to successfully rewire the DE LOS SANTOS and inability to open the [place] artery, CT surgery was called to bedside. The patient's films were reviewed and the situation assessed. After it was clear that
the [place] LAD circulation was not amenable to PCI, the decision was made to take the patient for emergent bypass.
Physical Exam
Vital Signs/Labs
Vital Signs
Temp Pulse Resp BP Pulse Ox
99.2 F 78 20 145/58 95
08/19/24 09:00 08/19/24 09:00 08/19/24 09:00 08/19/24 08:00 08/19/24 09:00
08/18/24 08/19/24 08/20/24
06:59 06:59 06:59
Actual Weight 218 lb 11.177 oz 214 lb 15.211 oz
08/19/24 04:26
PT 18.0 Sec (11.4-14.6) H 08/19/24 04:26
INR 1.46 08/19/24 04:26
APTT 58.6 Sec (23.4-35.0) H 08/19/24 04:26
Magnesium 2.5 mg/dl (1.6-2.3) H 08/19/24 04:26
Triglycerides 49 mg/dl (10-149) 08/13/24 18:21
Physical Exam
Constitutional: No acute distress and Comfortable
EENT: Anicteric
Cardiovascular: Rhythm & rate is regular
Respiratory: Other (decreased b/s b/l )
GI: Soft
Neuro/Psych: AO x 3
Data Reviewed
-
Date of Service: August 19, 2024
Medical Decision Making: Reviewed Test Results
EKG: Tracing Personally Visualized and interpreted (sr)
Labs: Labs Reviewed by me
Total Time Spent with Patient (in minutes): discussed with ICU darlyn
[2024-08-19] MEDS: BUMEX 50 IV ×2 (09:54→19:29)
[2024-08-19] MEDS: NSS IV (09:54)
[2024-08-19] MEDS: NITRO-BID 0.5 INCH TOPICAL ×3 (11:31→23:58)
[2024-08-19] MEDS: LOPRESSOR 12.5 MG PO (11:32)
[2024-08-19] MEDS: HEPARIN 25000 UNITS/250 ML IV (11:33)
--- NOTE | 2024-08-19 12:21 | PN.DE.MGMTRT ---
Insulin Management
- -
08/19/2024 Diabetes Management Follow up
74 year old male with PMH: CAD - CABG 2008 PCI 04/2024, [place], CHF, HTN, HCL, diabetes, PAT, valve disease - mechanical AVR.
Presented with Spiral dissection of KYLIE-to-LAD anastomosis w/ CP and intermittent BRENDA.
POD #6 s/p Emergent Pump-assist beating heart bypass w/ GSV to LAD; Repair of RV injury; Significant progressive RV disruption just medial to the GSV-to-LAD anastomosis that required extensive complex repairs & necessitated re-establishment of CPB x
2; Lysis of extensive circumferential adhesions; repair of a minor injury to the innominate vein. POD #4 S/P Mediastinal exploration & washout/ Chest closure.
Prior to admission was taking Jardiance 25 mg daily and Trulicity 4.5 weekly on Sunday. A1C 6.5%, Cr 0.7-->1.8, eGFR 39.25 today.
Pt awake, alert, oriented, sitting out of bed in chair, offers no complaints, able to discuss diabetes care. - Catrachita at bedside, all questions answered.
Pt states he has a working glucose meter at home and checks his blood sugars daily- fasting.
Transitioned from glycemic protocol insulin infusion 08/18 to lantus 12 units @ hs and novolog 4 units AC. Glucose range after infusion stopped 183 to 227. Fasting glucose 08/19 175. Will increase hs lantus to 15 units and increase AC novolog to 6
units with low corrective.
Discussed with Nurse. Will cont to follow.
Diabetes History
- -
Type of Diabetes: 2 requiring insulin
Pre-Admission Diabetes Regimen
08/18/24 08/18/24 08/19/24
11:06 17:33 04:26
Creatinine 1.5 H 1.7 H 1.7 H
Lab Results
Hemoglobin A1c 6.5 % (4.0-5.6) H 08/13/24 09:36
Hemoglobin A1c Cancelled 08/13/24 09:36
Insulin Pump Settings
IP Diabetes Regimen
08/18/24 08/18/24 08/18/24
11:06 13:22 17:32
Glucose 108 H
POC Glucose 183 H 192 H
08/18/24 08/18/24 08/19/24
17:33 22:37 04:26
Glucose 201 H 168 H
POC Glucose 227 H
08/19/24
07:58
Glucose
POC Glucose 175 H
Meal type: Breakfast
Meal type: Dinner
Meal type: Lunch
Meal type: Breakfast
Amount consumed: 80%
Amount consumed: 50%
Amount consumed: 75%
Amount consumed: 100%
Patient Education
[2024-08-19 12:38] LABS: Glucose - Point of Care 214 mg/dl (70-99)
[2024-08-19 12:50] LABS: Mixed Venous O2 Saturation 52.4 %
--- NOTE | 2024-08-19 13:00 | PTCARENOTE ---
Dobutamine infusion turned off this AM and MVO2 rechecked in afternoon - results 52.4 and dobutamine restarted; Patient OOB to chair with Junior Lift this AM and eating meals in chair; Bumex infusion restarted this AM
[2024-08-19 13:05] LABS: APTT 75.7 Sec (23.4-35.0)
[2024-08-19] MEDS: NOVOLOG FLEXPEN-MODERATE RESISTANCE 3 UNITS SC ×2 (13:22→17:00)
[2024-08-19] MEDS: NOVOLOG FLEXPEN 6 UNITS SC ×2 (13:22→17:00)
[2024-08-19] MEDS: TYLENOL 1000 MG PO ×2 (13:23→21:20)
[2024-08-19] MEDS: NOVOLOG FLEXPEN SC (13:35)
--- NOTE | 2024-08-19 15:15 | CM ---
Reviewed chart. Met with Reema to review discharge plans. He states he is feeling okay. [facility] to [facility] for inpatient acute rehab. [facility] call to [facility] Liaison to make the referral. He will need pre-cert to go to
acute rehab. Medical work-up in progress. The discharge plan is to goto some level of inpatient rehab.-hopefully [facility] if approved for admission and approved by his insurance when medically stable.
--- NOTE | 2024-08-19 15:27 | W.PN.INTV ---
Today's Communication / Plan
Recommendations
Doing well, improving
Maintained on heparin/amio
Remains on low dose dobutamine, titrate to off as tolerated
Encouraged OOB/PT
Once off inotrope, can consider transfer to tele per team
Assessment
-
74-year-old male with a history of CAD underwent elective cardiac catheterization for exertional chest pain and abnormal stress test with successful PCI of 80% in-stent restenosis and successful PCI of 90% proximal stent edge restenosis complicated
by DE LOS SANTOS dissection underwent emergent pump assisted beating heart bypass with repair of RV injury as well-edger automatic consulted for postoperative ventilator/critical care management 08/14/2024.
Cardiac catheterization status post stents and DE LOS SANTOS dissection
Status post reentry sternotomy, repair of innominate vein injury, repair of RV injury, pump assist beating heart bypass GSV to LAD, repair of SVC/innominate vein-Dr. Delatorre 08/13/2024
Ventilator dependent respiratory failure postoperatively
Leukocytosis
Anemia-normocytic
Hyperglycemia-A1c 6.5
Conditions present prior to admission:
CAD/CABG 2008/stent-LAD 2023.
CHF EF 45%.
Hypertension.
Hyperlipidemia.
Diabetes.
PAT-resolved with 80 pound weight loss
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
Spinal stenosis.
Tremors
Left knee arthroscopy.
Cataract.
Plan
Extubated 08/17/24
Supplemental oxygen as needed
Incentive spirometry
Aspiration precautions
Consider thoracentesis if right effusion unable to be drained with chest tubes
Off sedation, mentating well
Complaints of fatigue
Chest x-ray-small to moderate right greater than left pleural effusion
Chest x-ray 08/16/2024-stable postoperative changes
Pulmonary artery catheter parameters will be followed-discontinued
Pressors/antihypertensive/inotropes/diuretics will be provided as needed-currently on Bumex drip, dobutamine
Titrate off further per team
Chest tubes discontinued 08/18
Monitor hemoglobin
Monitor platelet count and coags
Transfuse blood product if needed
CT surgery following for further management
Atrial fibrillation rate control
Heparin drip
Amiodarone as well
Monitor blood sugar
Insulin drip per protocol, transition off
Monitor renal function
Monitor hemoglobin and platelets
Transfuse as needed
Diuresis as tolerated
Monitor renal function, electrolytes, intake/output, lower extremity edema and weight
Replace electrolytes as needed
Follow LFTs which remain elevated
Aspiration precautions
VAP prevention protocol
DVT prophylaxis
Early nutrition
Early mobilization
Dr. Jin reviewed with and son on 08/15/2024 and again 08/16/2024 and again on 08/17/2024
Patient followed for obstructive sleep apnea by Dr. Jin-initially seen 2008 and more recently seen 04/11/2021 and last seen 08/02/2021-resolution of PAT with 80 pound weight loss
Diagnostic Data:
Chest x-ray 08/26/18-NAD�������
Chest x-ray 08/13/2024-endotracheal tube tip 4.4 cm above indira, mild atelectasis left base
Chest x-ray 08/14/2024-no pneumothorax, basilar opacifications
CT neck 05/03/21--severe degenerative/arthritic changes noted on the left side where the collar bone and chest bone or sternum meet -Sternoclavicular-which could explain the lump that he feels,, some carotid artery closure was noted and warrants
carotid ultrasounds, incidentally, his epiglottis also had a lot of calcifications which sometimes can be seen with people that have swallowing difficulties-Patient notified-we'll discuss carotid ultrasounds at next visit.�������
CT head angiogram 07/31/2023-no CT evidence for intracranial aneurysm
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
Brain MRA 06/28/21-no hemodynamically significant stenosis, branch occlusion or aneurysm�������
Neck MRA 06/28/21-no significant carotid plaque formation or hemodynamically significant stenosis
Echocardiogram 12/25/19-EF 65-70%�������
Echocardiogram 04/18/2024-EF 45-50%
Nuclear stress test 05/17/21-Systolic function moderately reduced, EF 41%, moderate risk study.
Cardiac catheterization 08/13/2024-successful PCI mid LAD distal stent edge haziness and 80% ISR lesion with reduction in stenosis, successful PCI 90% DE LOS SANTOS/LAD with reduction of stenosis to 0% with subsequent complication by dissection of DE LOS SANTOS graft
after post dilation
PSG around 2006 AHI-36, desaturation stefano 85%, CPAP 7-cm�������
HST-after 80 pound weight loss-05/23/21-ROSE-1.4, desaturation stefano 89%.
-----
Critical care statement: A total of 31 minutes of critical care time was provided for this patient today. This includes management of ventilator, spontaneous breathing trial, arterial blood gases, pressors, of unstable vital signs, evaluation of the
patient at bedside, spontaneous breathing trial management, reviewing the patient's pertinent medical records including radiographs, microbiology, laboratory evaluations, and discussion with primary team and critical care nursing.
Subjective Dataa
Subjective Data
Date of Service:
Date of Service: August 19, 2024
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
Subjective:
Feels better today, fatigue is less
Remains on dobutamine
No new complaints
Objective Data
Data Reviewed
Vital Signs / I&O / Oxygen:
Vital Signs
Temp Pulse Resp BP Pulse Ox
99.4 F 68 25 113/66 95
08/19/24 15:00 08/19/24 15:15 08/19/24 15:15 08/19/24 15:00 08/19/24 15:15
Intake and Output
08/18/24 08/19/24 08/20/24
06:59 06:59 06:59
Intake Total 2866.8 / 2919.4 2743.5 / 2770.6 1263.9 / 1263.9
Output Total 5220 / 5410 5770 / 5860 1360 / 1360
Balance -2353.2 / -2490.6 -3026.5 / -3089.4 -96.1 / -96.1
SaO2 [SIMV] 95
SaO2 95
Nasal Cannula flow liters per 1
minute
Physical Exam
General: Respiratory Distress (n) and Comfortable
HEENT: Normocephalic, Anicteric and Moist Mucous Membranes
Cardiovascular: Regular Rhythm
Respiratory: Wheeze (n), Crackles (minimal), Non-Labored Respirations and Accessory Resp Muscle Use (n)
GI: Soft, Non Distended and Non Tender
Neurology: Awake, Alert, AO x 3 and Other (Sedated on a ventilator)
Skin: Warm and Good Color
Labs/Micro/Reports
Lab Data
08/19/24 04:26
Laboratory Results
08/19/24 08/19/24
04:26 12:36
PT 18.0 H
INR 1.46
APTT 58.6 H 75.7 H
[2024-08-19 15:31] LABS: Blood Urea Nitrogen 62 mg/dl (9-20); Carbon Dioxide 28 mmol/L (22-30); Chloride 97 mmol/L (98-107); Estimated Creatinine Clearance 46 ml/min; Glucose 230 mg/dl (70-99); Potassium 3.7 mmol/L (3.5-5.1); Sodium 136 mmol/L (135-145); eGFR 42.04
--- NOTE | 2024-08-19 16:38 | PTCARENOTE ---
Patient stood at bedside with RN and PT with max assist; Patient transferred back to bed with Junior lift after 6 hours OOB in chair
[2024-08-19 17:06] LABS: Glucose - Point of Care 219 mg/dl (70-99)
[2024-08-19] MEDS: LIPITOR 40 MG PO (17:15)
[2024-08-19] MEDS: ZETIA 10 MG PO (17:15)
[2024-08-19] MEDS: COUMADIN 5 MG PO (17:15)
[2024-08-19] MEDS: MUCINEX 1200 MG PO (18:17)
[2024-08-19 18:20] LABS: Mixed Venous O2 Saturation 54.5 %
[2024-08-19 18:36] LABS: APTT 77.8 Sec (23.4-35.0)
--- NOTE | 2024-08-19 19:45 | PTCARENOTE ---
Patient received from RN @1900. Patient lying in bed comfortable w/ call xiao in reach. AOx3. NSR BP 107/61 HR 65. Radial and pedal pulses present and bilateral. Heart sounds audible. POX 94% 1L NC. Lungs sounds present and diminished.
percussion given on bed. Chest tube dressing dry and intact. bowel sounds present. Becerra draining clear yellow urine WNL. Generalized weakness noted. Sternal incision dressing dry and intact. Right and Left groin puncture dressing dry and
intact. Right leg incision dry and intact open to air. DTI in gluteal fold dressing dry and intact. Left great toe discoloration noted. Right radial A-Line, RIJ cordis. Right and left forearm PIV patent and intact. Bumex, heparin, Dobut
infusing, see worklist for details.
[2024-08-19] MEDS: SENOKOT-S PO (19:46)
[2024-08-19] MEDS: LANTUS 0.15 UNITS SC (21:32)
[2024-08-19 21:35] LABS: Glucose - Point of Care 133 mg/dl (70-99)
[2024-08-20] VITALS (21 sets, daily range): BP systolic 88–133; BP diastolic 40–90; PULSE 75–80; O2SAT 95–97; BMI 30.3
--- NOTE | 2024-08-20 | PTCARENOTE ---
patient reassessed. No significant changes. Patient lying in bed w/ call xiao in reach comfortably. NSR BP 91/53 HR 62 POX 94% RA.
--- NOTE | 2024-08-20 00:34 | W.PN.CT ---
Today's Communication / Plan
-
Plan:
-No major issues overnight. Hemodynamically and neurologically intact. Alert and oriented x 3
-Successfully extubated on 08/17 in the AM. Currently on 2L of NC with O2sats 94%
-Went into a-fib with RVR shortly after extubation on 08/17, converted after 5mg IV Lopressor and amiodarone bolus but had 3sec conversion pause. No further a-fib/pause since
-Pt underwent chest washout and closure 08/15/24
-Dobutamine remains weaned to 0.5 from 1, Heparin @ 1400 u/hr. Received Bumex gtt from 9AM - 9PM yesterday. D/C'd amiodarone gtt 08/18. Will resume low dose Toprol XL when off dobutamine
-MVO2 56.5%, wean dobutamine to off
-On heparin to coumadin bridge for mechanical AVR/postop a-fib, got 5 mg coumadin last night, INR 1.31 today
-Monitor Cr 1.5, was 1.7 yesterday, peaked @ 1.8, was 0.7-0.9 preop
-Keep giron catheter another day for accurate I/O's
-Cont. diuresis, 24hr u/o 4170 mL
-Repleting K, 3.4
-D/c'd chest tube yesterday 08/18
-Monitor elevated LFTs (improving). Avoid hepatotoxic meds (Tylenol, Amiodarone, Precedex)
-Maintain cordis
-Encourage use of IS
-OOB into chair
-PT/OT/SP f/u, deconditioned
-Passed swallow evaluation and tolerating regular diet
-Eventual acute rehab placement ([facility])
Assessment / Plan
-
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
required extensive complex repairs & necessitated re-establishment of CPB x 2; Lysis of extensive circumferential adhesions; repair of a minor injury to the innominate vein; Open exposure of L CREATIVE ART DIRECTOR (assisted by vascular surgery) w/ proximal and
distal control on 08/13/[address] Delatorre, pod #7
-S/p Mediastinal exploration & washout/ Chest closure, by Dr. Delatorre, 08/15/24, pod#5
- Admitted on 08/13/24 for elective cath for exertional CP and abnormal stress test
- Cath 08/13/24 with successful PCI of 80% in-stent restenosis including the distal margin of the stent leading into the [place] vessel
and successful PCI of the 90% proximal stent edge restenosis, complicated by DE LOS SANTOS dissection.
- hx mechanical AVR /[place]AB[place] [address] Pal
- NSTEMI with 80% stenosis of LAD at DE LOS SANTOS anastomosis requiring LAD stent in 04/18/24- last Plavix dose was 08/11/24
- EF 45-50% by TTE 04/2024
- Chronic diastolic CHF
- HTN/HLD
- DM II ( on Trulicity and Jardiance)
- Coumadin anticoagulation for mechanical AVR - last dose 08/10/24
- Spinal stenosis L4-L5
- L knee arthroscopy 2012
- Cataract extraction
- Acute postop blood loss anemia in setting of preop coagulopathy (INR was 2.68 preop)- s/p multiple transfusions (13 pRBCs), transfused additional 2u PRBCs post
chest washout and closure
- Acute postop coagulopathy (4 FFPs, 1 cryo, Protamine)
- Acute postop thrombocytopenia (4 platelets), transfused additional 1 {5pk} plts post chest washout and closure
- Acute cardiogenic shock
- Acute postop atelectasis
- Acute postop hypovolemia with subsequent hypervolemia
- Acute postop pericarditis per ekg
- Acute postop pulmonary insufficiency
- Acute postop pleural effusion
- Acute postop hyponatremia
- Acute postop JULI
- Postop VDRF
- Acute postop afib with RVR
Discussed patient care with: Cardiology, Nursing, Respiratory Therapy, Pharmacy and Care Team
Subjective
-
Date of Service: August 20, 2024
Pt c/o mild incisional pain, states he's getting stronger each day
Objective Data
-
PT 18.0 Sec (11.4-14.6) H 08/19/24 04:26
INR 1.46 08/19/24 04:26
APTT 77.8 Sec (23.4-35.0) H 08/19/24 18:08
Vital Signs
Vital Signs
Temp Pulse Resp BP Pulse Ox
99.2 F 62 21 91/53 93
08/19/24 23:57 08/20/24 00:00 08/20/24 00:00 08/20/24 00:00 08/20/24 00:00
CT Intake/Output/Weight
08/19/24 08/19/24 08/20/24
06:59 18:59 06:59
Intake Total 554.2 / 2770.6 1390.7 / 1552.3 161.6 / 1552.3
Output Total 2210 / 5860 1994 / 3560 1565 / 3560
Balance -1655.8 / -3089.4 -604.3 / -2006.7 -1403.4 / -2006.7
SaO2: 93 (2)
Physical Exam
-
General: Awake, Oriented and AOx3
Cardiovascular: Regular rate & rhythm, No Murmurs, No Rub and No Gallop
Respiratory: Decreased Breath Sounds (at bases, otherwise clear)
Sternum: Stable
Incision: Clean, Dry, Intact and Dressing Intact
Extremities: Edema +1
Data Reviewed
-
Lab Results: Results Reviewed
Medications: Active Meds Reviewed
Chest X-Ray: Report Reviewed and Image Reviewed
ECG: Report Reviewed and Image Reviewed
--- NOTE | 2024-08-20 02:54 | DOWNTIME ---
There was a [employer] Client Furniture Rental Consultant Downtime on 08/20/2024 from 0100 to 08/20/2023 at 0235 . Downtime documentation of patient's care, including medication administrations, has been reconciled in the electronic record per guidelines. Refer to the
patient's paper chart under the miscellaneous tab to see printed paper medication records and downtime forms.
[2024-08-20 03:41] LABS: Mixed Venous O2 Saturation 56.5 %
[2024-08-20 03:44] LABS: Ionized Calcium 1.07 mMOL/L (1.15-1.33)
[2024-08-20 03:51] LABS: Hematocrit 28.1 % (39.0-52.0); Hemoglobin 9.2 g/dL (13.0-18.0); Mean Corp Hgb Conc. 32.7 g/dL (33.0-37.0); Mean Corpuscular Volume 85.7 fL (80.0-94.0); Mean Platelet Volume 11.8 fL (7.4-10.4); Platelet Count 165 10^3/uL (130-400); Red Blood Cell Count 3.28 10^6/uL (4.70-6.10); White Blood Cell Count 13.7 10^3/uL (4.8-10.8)
[2024-08-20 03:55] LABS: INR 1.31; PT 16.6 Sec (11.4-14.6)
[2024-08-20 03:58] LABS: APTT 124.7 Sec (23.4-35.0)
--- NOTE | 2024-08-20 04:00 | PTCARENOTE ---
Patient reassessed. Labs drawn. CaCl 1g and KCl 40meq given per CT ROPEMAN Ed. NSR BP 105/54 HR 60 POX 96% RA Patient washed with CHG and weighed.
[2024-08-20 04:22] LABS: ALT (SGPT) 127 U/L (0-50); AST (SGOT) 155 U/L (17-59); Albumin 2.8 g/dl (3.5-5.0); Alkaline Phosphatase 452 U/L (38-126); Blood Urea Nitrogen 64 mg/dl (9-20); Calcium 7.8 mg/dl (8.4-10.2); Carbon Dioxide 33 mmol/L (22-30); Chloride 98 mmol/L (98-107); Direct Bilirubin 2.2 mg/dl (0.0-0.4); Estimated Creatinine Clearance 52 ml/min; Glucose 136 mg/dl (70-99); Magnesium 2.5 mg/dl (1.6-2.3); Potassium 3.4 mmol/L (3.5-5.1); Sodium 136 mmol/L (135-145); Total Bilirubin 3.8 mg/dl (0.2-1.3); eGFR 48.85
[2024-08-20] MEDS: KCL 40 MEQ PO ×2 (04:50→08:13)
[2024-08-20] MEDS: CALCIUM CHLORIDE 10% SYRINGE 60 MG IV (05:09)
[2024-08-20] MEDS: HEPARIN 25000 UNITS/250 ML IV (06:30)
[2024-08-20] MEDS: NITRO-BID 0.5 INCH TOPICAL ×2 (06:32→18:19)
[2024-08-20] MEDS: TYLENOL 1000 MG PO ×2 (06:32→21:11)
[2024-08-20] MEDS: NOVOLOG FLEXPEN 6 UNITS SC ×2 (07:00→12:14)
[2024-08-20] MEDS: NOVOLOG FLEXPEN-MODERATE RESISTANCE SC (07:00)
[2024-08-20] MEDS: LIDOCAINE 4% PATCH TOPICAL (07:45)
[2024-08-20] MEDS: MIRALAX TUBE (07:45)
[2024-08-20] MEDS: TOPROL XL 12.5 MG PO (08:00)
[2024-08-20] MEDS: PROTONIX 40 MG PO (08:00)
[2024-08-20] MEDS: PLAVIX 75 MG PO (08:00)
--- NOTE | 2024-08-20 08:00 | PTCARENOTE ---
Patient received from previous RN. AAOx3. NSR HR 60-70s. VSS. +pulses present and bilateral. POX 96% RA. Lungs coarse and diminished. + bowel sounds with good appetite. Becerra draining clear yellow urine. All surigcal sites stable. DTI on sacrum.
dry and intact. Right radial A-Line, RIJ cordis. Right and left forearm PIV patent and intact. heparin and Dobut infusing at ordered rates. orders to d/c dobut this AM. Will continue to monitor.
[2024-08-20] MEDS: MUCINEX 1200 MG PO ×2 (08:01→21:08)
[2024-08-20] MEDS: THERAGRAN 1 TABLET PO (08:01)
[2024-08-20] MEDS: LOW STRENGTH ASPIRIN 81 MG PO (08:02)
[2024-08-20] MEDS: SENOKOT-S 1 TABLET PO ×2 (08:02→21:07)
[2024-08-20] MEDS: VITAMIN C 500 MG PO (08:03)
[2024-08-20] MEDS: FEOSOL 325 MG PO (08:03)
[2024-08-20] MEDS: NEURONTIN 100 MG PO ×3 (08:04→21:08)
[2024-08-20] MEDS: PACERONE 200 MG PO ×3 (08:04→21:19)
[2024-08-20] MEDS: NSS 500 IV (08:07)
--- NOTE | 2024-08-20 08:07 | PN.DE.MGMTRT ---
Insulin Management
- -
08/20/2024 Diabetes Management Follow up
74 year old male with PMH: CAD - CABG 2008 PCI 04/2024, NV, CHF, HTN, HCL, diabetes, PAT, valve disease - mechanical AVR.
Presented with Spiral dissection of KYLIE-to-LAD anastomosis w/ CP and intermittent BRENDA.
POD #6 s/p Emergent Pump-assist beating heart bypass w/ GSV to LAD; Repair of RV injury; Significant progressive RV disruption just medial to the GSV-to-LAD anastomosis that required extensive complex repairs & necessitated re-establishment of CPB x
2; Lysis of extensive circumferential adhesions; repair of a minor injury to the innominate vein. POD #4 S/P Mediastinal exploration & washout/ Chest closure.
Prior to admission was taking Jardiance 25 mg daily and Trulicity 4.5 weekly on Sunday. A1C 6.5%, Cr 0.7-->1.8, eGFR 39.25 today.
Pt awake, alert, oriented, sitting out of bed in chair, offers no complaints, able to discuss diabetes care. - Catrachita at bedside.
Pt states he has a working glucose meter at home and checks his blood sugars daily- fasting. Discussed importance of glucose control to avoid wound infection. He is in agreement. Will increase home glucose monitoring to AC HS and report to
primary doctor after discharge. Discussed use of insulin at this time both lantus and novolog for glucose control. Patient states he is confident with self injections as he was taking Trulicity before admission. Reviewed subtle differences
between trulicity pen preparation and insulin pen preparation; provided printed instructions for each step of pen prep and injection technique.
08/20 Hs lantus dose increased to 15 units 08/19, fasting glucose 136 today. AC novolog increased to 6 units with low corrective, pre meal glucose improved to 219 pre dinner and 133 HS. Pre lunch glucose 288 today, will increase AC novolog to 10
units with moderate corrective.
Discussed with Nurse. Will cont to follow.
Diabetes History
- -
Type of Diabetes: 2 requiring insulin
Pre-Admission Diabetes Regimen
02/18/25 02/19/25
14:30 03:23
Creatinine 1.7 H 1.5 H
Lab Results
Hemoglobin A1c 6.5 % (4.0-5.6) H 08/13/24 09:36
Hemoglobin A1c Cancelled 08/13/24 09:36
Insulin Pump Settings
IP Diabetes Regimen
08/19/24 08/19/24 08/19/24
12:35 14:30 16:58
Glucose 230 H
POC Glucose 214 H 219 H
08/19/24 08/20/24
21:33 03:23
Glucose 136 H
POC Glucose 133 H
Meal type: Breakfast
Amount consumed: 80%
Patient Education
[2024-08-20] MEDS: MUCOMYST 10% 2 ML INH ×2 (08:22→20:07)
[2024-08-20] MEDS: XOPENEX 1.25 MG INHALANT SOLUTION INH ×2 (08:23→20:07)
--- NOTE | 2024-08-20 08:40 | W.PN.CD ---
Today's Communication / Plan
-
-Continue current medication regimen and supportive care.
-Add GDMT as able.
-Start Toprol-XL 25 mg daily when able.
Impression / Plan
-
Impression/Plan: 74 y/o male with DM2, HTN, HLD, severe s/p mechanical SAVR and multivessel CAD s/p prior CABG (DE LOS SANTOS to LAD, sequential SVG to OM to RPDA) with prior PCI to the mid-LAD + LAD/DE LOS SANTOS anastamosis, admitted after PCI to ISR lesions
was complicated by DE LOS SANTOS dissection requiring emergent re-operation with SVG to LAD.
#CAD
-Cath showed an 80% ISR lesion in the LAD/DE LOS SANTOS stent as well as a 90% proximal stent edge lesion, patent sequential SVG.
-PCI performed on the 80% ISR lesion (Xience Skypoint 2.25 x 18 ELLIOTT, post dilated with a 2.75 NCB in the overlap) and the 90% proximal stent edge lesion (Xience Skypoint 3.0 x 26 ELLIOTT, post dilated with a 3.0 NCB) with reduction in stenoses to 0%.
-At the end of the procedure, the lesion could not be rewired after pulling back due to tension on the balloon. Repeat angiography showed spiral dissection of the DE LOS SANTOS graft, which could not be re-wired.
-PCI of the robinson LAD was attempted, but the lesion could not be wired.
-The patient was taken for emergent CABG.
#CABG/cardiogenic shock
-Acute. EF post op 40-45%
-Repeat CABG (SVG to LAD), with Dr. Delatorre, 08/13/2024.
-CABG was complicated by RV laceration by a retained sternal wire with progressive RV disruption medial to the anastomosis, requiring extensive surgical repair and emergent ECMO cannulation.
-Chest was left open at the end of the surgery, back to OR 08/15/24 for mediastinal exploration , washout and closure
-Vascular surgery was called into the OR and performed primary repair of the peripheral cannulation site.
-Extubated 08/17/24.
-Continue current medication regimen and supportive care.
-Add GDMT as able.
#AF with RVR: new onset, on Amiodarone, still with rates in the 160's
-on po amio
-Start Toprol-XL 25 mg daily when able.
-On heparin drip until therapeutic INR.
NSVT:
-amio initiated.
-Stable.
#Mechanical AVR
-Chronic, stable.
- IV heparin
- Continue warfarin.
#HTN
-Chronic,
#HLD
-Chronic. stain
#DM2
-Chronic.
-Insulin gtt per protocol.
Condition:
Guarded still not HD stable after extubation with RVR
CCT 30 minutes, d/w CTPA Lise Charli
Subjective/Interval History:
No events overnight.
DATA:
Intraop HAILEY:
CONCLUSIONS
Mild Global hypokinesis with akinesis of the apical septal wall. LVEF is 40-
45% by visual inspection.
A well-seated and properly functioning mechanical aortic prosthesis is seen.
The mitral valve is heavily calcified without stenosis. Mild regurgitation is
seen.
Mild tricuspid regurgitation.
Grade III atheromatous disease of the arch and descending thoracic aorta.
Cardiac catheterization/PCI, 08/13/2024:
CONCLUSIONS
1. Right dominant circulation with chronic total occlusion of the RCA, diffusely diseased and calcified left main coronary artery, a chronically totally occluded circumflex and a diffusely diseased proximal LAD with a MACHINE MOLDER SQUEEZE of the mid LAD status post
prior bypass (DE LOS SANTOS to LAD, sequential SVG to OM to RPDA) with prior PCI of de darrick mid LAD disease in the mid LAD extending into the DE LOS SANTOS anastomosis, now with a 90% stent edge lesion, haziness at the distal stent edge and an 80% ISR lesion in the
distal third of the stent.
2. Status post successful PCI of the distal stent edge haziness and 80% ISR (Xience Skypoint 2.25 x 18 ELLIOTT, postdilated with a 2.75 NC balloon and the stent overlap section) with reduction in stenosis to 0%, maintaining REINALDO-3 flow.
3. Status post successful PCI of the 90% proximal stent edge lesion into the DE LOS SANTOS graft (Xience Skypoint 3.0 x 28 ELLIOTT, postdilated with a 3.0 NC balloon) with reduction in stenosis to 0%, subsequently complicated by spiral dissection of the DE LOS SANTOS
graft.
4. Unsuccessful rewiring of the dissected DE LOS SANTOS graft with propagation.
5. Unsuccessful wiring of the robinson LAD.
6. Given the compromise of the DE LOS SANTOS flow, inability to successfully rewire the DE LOS SANTOS and inability to open the robinson artery, CT surgery was called to bedside. The patient's films were reviewed and the situation assessed. After it was clear that
the robinson LAD circulation was not amenable to PCI, the decision was made to take the patient for emergent bypass.
Physical Exam
Vital Signs/Labs
Vital Signs
Temp Pulse Resp BP Pulse Ox
98.8 F 74 22 133/53 98
08/20/24 08:00 08/20/24 08:24 08/20/24 08:24 08/20/24 08:00 08/20/24 08:24
08/19/24 08/20/24 08/21/24
06:59 06:59 06:59
Actual Weight 97.5 kg
08/20/24 03:24
08/20/24 03:23
PT 16.6 Sec (11.4-14.6) H 08/20/24 03:23
INR 1.31 08/20/24 03:23
APTT 124.7 Sec (23.4-35.0) H 08/20/24 03:23
Magnesium 2.5 mg/dl (1.6-2.3) H 08/20/24 03:23
Triglycerides 49 mg/dl (10-149) 08/13/24 18:21
Physical Exam
Constitutional: No acute distress and Comfortable
EENT: Anicteric
Cardiovascular: Rhythm & rate is regular, Pedal edema is absent, Systolic murmur absent and S1S2 is normal
Respiratory: Respiratory effort normal, Wheeze Absent and Crackles Absent
GI: Soft
Neuro/Psych: AO x 3
Other: Skin (Warm, dry, intact)
Data Reviewed
-
Date of Service: August 20, 2024
EKG: Tracing Personally Visualized and interpreted (Telemetry: Sinus rhythm)
Labs: Labs Reviewed by me
Critical Care Time (in minutes): 33
--- NOTE | 2024-08-20 11:58 | PTCARENOTE ---
OOB in chair. tolerating well.VSS
--- NOTE | 2024-08-20 12:08 | CM ---
Reviewed chart. Met with and Mrs. Benavidez to review discharge plans. She states prior to admission they resides together in a two story home with two steps to enter. She states he has to go up a full flight of steps to bedroom/full bathroom.
She states they have a powder room on the first floor. She states prior to admission he was independent with ambulation and adls. She states he would take a single point cane when he went for a walk for balance. She states he was going to
outpatient Cardiac Rehab and driving himself. He has a prescription plan and uses [facility]. She states her granddaughter is coming home after working a [employer] and she will be staying with them. We reviewed acute Rehab. We discussed [facility] [place]. She would like to explore [facility]. Will need a PM&R eval . Will also need to pre-cert with his insurance. Medical work-up in progress. The discharge plan is to go to acute rehab. if bed available and approved by
his insurance. [facility] [place] when medically stable.
[2024-08-20 12:11] LABS: Glucose - Point of Care 288 mg/dl (70-99)
[2024-08-20] MEDS: NOVOLOG FLEXPEN-MODERATE RESISTANCE 5 UNITS SC (12:14)
[2024-08-20] MEDS: BUMEX 2 MG IV (13:11)
[2024-08-20] MEDS: NITRO-BID TOPICAL (13:12)
[2024-08-20] MEDS: TYLENOL PO (13:17)
--- NOTE | 2024-08-20 13:42 | W.PN.INTV ---
Today's Communication / Plan
Recommendations
Off pressors, doing well
OOB to chair, chest tubes discontinued
Pain control, PT encouraged
Can likely transfer to [facility] per team, we will sign off upon transfer
Assessment
-
74-year-old male with a history of CAD underwent elective cardiac catheterization for exertional chest pain and abnormal stress test with successful PCI of 80% in-stent restenosis and successful PCI of 90% proximal stent edge restenosis complicated
by DE LOS SANTOS dissection underwent emergent pump assisted beating heart bypass with repair of RV injury as well-bilingual account manager consulted for postoperative ventilator/critical care management 08/14/2024.
Cardiac catheterization status post stents and DE LOS SANTOS dissection
Status post reentry sternotomy, repair of innominate vein injury, repair of RV injury, pump assist beating heart bypass GSV to LAD, repair of SVC/innominate vein-Dr. Delatorre 08/13/2024
Ventilator dependent respiratory failure postoperatively
Leukocytosis
Anemia-normocytic
Hyperglycemia-A1c 6.5
Conditions present prior to admission:
CAD/CABG 2008/stent-LAD 2023.
CHF EF 45%.
Hypertension.
Hyperlipidemia.
Diabetes.
PAT-resolved with 80 pound weight loss
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
Spinal stenosis.
Tremors
Left knee arthroscopy.
Cataract.
Plan
Extubated 08/17/24
Supplemental oxygen as needed
Incentive spirometry
Aspiration precautions
Consider thoracentesis if right effusion unable to be drained with chest tubes
Off sedation, mentating well
Complaints of fatigue
Chest x-ray-small to moderate right greater than left pleural effusion
Chest x-ray 08/16/2024-stable postoperative changes
Pulmonary artery catheter parameters will be followed-discontinued
Pressors/antihypertensive/inotropes/diuretics will be provided as needed
Titrated off today
Chest tubes discontinued 08/18
Monitor hemoglobin
Monitor platelet count and coags
Transfuse blood product if needed
CT surgery following for further management
Atrial fibrillation rate control
Heparin drip
Amiodarone as well
Monitor blood sugar
Insulin drip per protocol, transition off
Monitor renal function
Monitor hemoglobin and platelets
Transfuse as needed
Diuresis as tolerated
Monitor renal function, electrolytes, intake/output, lower extremity edema and weight
Replace electrolytes as needed
Follow LFTs which remain elevated
Aspiration precautions
VAP prevention protocol
DVT prophylaxis
Early nutrition
Early mobilization
Dr. Jni reviewed with and son on 08/15/2024 and again 08/16/2024 and again on 08/17/2024
Patient followed for obstructive sleep apnea by Dr. Jin-initially seen 2008 and more recently seen 04/11/2021 and last seen 08/02/2021-resolution of PAT with 80 pound weight loss
Diagnostic Data:
Chest x-ray 08/26/18-NAD�������
Chest x-ray 08/13/2024-endotracheal tube tip 4.4 cm above indira, mild atelectasis left base
Chest x-ray 08/14/2024-no pneumothorax, basilar opacifications
CT neck 05/03/21--severe degenerative/arthritic changes noted on the left side where the collar bone and chest bone or sternum meet -Sternoclavicular-which could explain the lump that he feels,, some carotid artery closure was noted and warrants
carotid ultrasounds, incidentally, his epiglottis also had a lot of calcifications which sometimes can be seen with people that have swallowing difficulties-Patient notified-we'll discuss carotid ultrasounds at next visit.�������
CT head angiogram 07/31/2023-no CT evidence for intracranial aneurysm
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
Brain MRA 06/28/21-no hemodynamically significant stenosis, branch occlusion or aneurysm�������
Neck MRA 06/28/21-no significant carotid plaque formation or hemodynamically significant stenosis
Echocardiogram 12/25/19-EF 65-70%�������
Echocardiogram 04/18/2024-EF 45-50%
Nuclear stress test 05/17/21-Systolic function moderately reduced, EF 41%, moderate risk study.
Cardiac catheterization 08/13/2024-successful PCI mid LAD distal stent edge haziness and 80% ISR lesion with reduction in stenosis, successful PCI 90% DE LOS SANTOS/LAD with reduction of stenosis to 0% with subsequent complication by dissection of DE LOS SANTOS graft
after post dilation
PSG around 2006 AHI-36, desaturation stefano 85%, CPAP 7-cm�������
HST-after 80 pound weight loss-05/23/21-ROSE-1.4, desaturation stefano 89%.
-----
Critical care statement: A total of 31 minutes of critical care time was provided for this patient today. This includes management of ventilator, spontaneous breathing trial, arterial blood gases, pressors, of unstable vital signs, evaluation of the
patient at bedside, spontaneous breathing trial management, reviewing the patient's pertinent medical records including radiographs, microbiology, laboratory evaluations, and discussion with primary team and critical care nursing.
Subjective Dataa
Subjective Data
Date of Service:
Date of Service: August 20, 2024
Chief Complaint: Senior Business Architect Follow Up, Pulmonary Follow Up and Vent Management Follow Up
Subjective:
No new events, sitting in chair
Off dobutamine
Objective Data
Data Reviewed
Vital Signs / I&O / Oxygen:
Vital Signs
Temp Pulse Resp BP Pulse Ox
99.7 F 66 29 106/35 97
08/20/24 13:00 08/20/24 13:12 08/20/24 13:00 08/20/24 13:12 08/20/24 12:00
Intake and Output
08/19/24 08/20/24 08/21/24
06:59 06:59 06:59
Intake Total 2743.5 / 2770.6 1945.9 / 1970.5 139.6 / 139.6
Output Total 5770 / 5860 4170 / 4290 545 / 545
Balance -3026.5 / -3089.4 -2224.1 / -2319.5 -405.4 / -405.4
SaO2 [SIMV] 95
SaO2 97
Nasal Cannula flow liters per 1
minute
Physical Exam
General: Respiratory Distress (n) and Comfortable
HEENT: Normocephalic, Anicteric and Moist Mucous Membranes
Cardiovascular: Regular Rhythm
Respiratory: Wheeze (n), Crackles (minimal), Non-Labored Respirations and Accessory Resp Muscle Use (n)
GI: Soft, Non Distended and Non Tender
Neurology: Awake, Alert, AO x 3 and Other (Sedated on a ventilator)
Skin: Warm and Good Color
Labs/Micro/Reports
Lab Data
08/20/24 03:24
08/20/24 03:23
Laboratory Results
08/19/24 08/20/24 08/20/24
18:08 03:23 11:14
PT 16.6 H
INR 1.31
APTT 77.8 H 124.7 H 80.0 H
[2024-08-20] MEDS: ROXICODONE 5 MG PO (15:10)
[2024-08-20 16:47] LABS: Glucose - Point of Care 238 mg/dl (70-99)
[2024-08-20] MEDS: NOVOLOG FLEXPEN-MODERATE RESISTANCE 3 UNITS SC (16:48)
[2024-08-20] MEDS: NOVOLOG FLEXPEN 10 UNITS SC (16:48)
--- NOTE | 2024-08-20 18:00 | PTCARENOTE ---
assist x3 back into bed with walker. dressing on bottom changed.
[2024-08-20] MEDS: ZETIA 10 MG PO (18:18)
[2024-08-20] MEDS: LIPITOR 40 MG PO (18:18)
[2024-08-20] MEDS: COUMADIN 5 MG PO (18:18)
[2024-08-20 18:32] LABS: APTT 71.9 Sec (23.4-35.0)
--- NOTE | 2024-08-20 20:15 | PTCARENOTE ---
Patient received from RN at 1900. Patient lying in bed w/ call xiao in reach. AOx3. NSR BP 116/61 HR 66 heart sounds audible. trace edema noted in bilateral hands. Radial and pedal pulses present. Lungs clear but diminished in the bases. IS
1000. POX 100% RA. Mild cough noted but no mucus production. Bed percussion performed. Bowel sounds normoactive. Stood patient max 3 person assist to bedside commode. Scant BM w/ constipation. 1 medium unmeasurable void due to incontinence
post Becerra removal. Post void residual bladder scan 320mL. Sternal incision dressing dry and intact. Chest tube dressing removed. Chest tube punctures cleaned w/ CHG dry and intact open to air. Right groin and left groin puncture dressings dry
and intact. Right leg incisions dry and intact open to air. Right and left PIV patent and intact. RIJ cordis patent and intact. Heparin and NSS infusing. Patient washed with CHG wipes, lead stickers replaced.
--- NOTE | 2024-08-20 20:30 | PTCARENOTE ---
Metoprolol Xl held per CT POP Ferrer due to low SBP. First cuff pressure 88/74. Second cuff pressure 99/59.
[2024-08-20] MEDS: TOPROL XL PO (21:19)
[2024-08-20 21:28] LABS: Glucose - Point of Care 148 mg/dl (70-99)
[2024-08-20] MEDS: LANTUS 0.15 UNITS SC (21:29)
[2024-08-20] MEDS: ROXICODONE 2.5 MG PO (22:41)
[2024-08-21] VITALS (26 sets, daily range): BP systolic 91–145; BP diastolic 48–88; PULSE 65–66; O2SAT 96; BMI 30.6
[2024-08-21] MEDS: NITRO-BID 0.5 INCH TOPICAL ×4 (00:26→23:24)
[2024-08-21 01:00] LABS: APTT 120.6 Sec (23.4-35.0)
--- NOTE | 2024-08-21 01:00 | PTCARENOTE ---
Patient reassessed. NSR BP 96/54 HR HR 61 POX 93% RA. Patient bladder scanned due to no urine output. Scan showed 700mL of urine in bladder. Straight cath for 700mL per CT POP Ferrer.
[2024-08-21] MEDS: HEPARIN 25000 UNITS/250 ML IV ×2 (01:47→21:41)
[2024-08-21 03:44] LABS: Hemoglobin 8.2 g/dL (13.0-18.0); Mean Corp Hgb Conc. 32.8 g/dL (33.0-37.0); Mean Corpuscular Hgb 28.6 pg (27.0-31.0); Mean Corpuscular Volume 87.1 fL (80.0-94.0); Mean Platelet Volume 11.6 fL (7.4-10.4); Platelet Count 201 10^3/uL (130-400); Red Blood Cell Count 2.87 10^6/uL (4.70-6.10); Red Cell Dist. Width 18.3 % (11.5-14.5); White Blood Cell Count 16.2 10^3/uL (4.8-10.8)
[2024-08-21 03:52] LABS: INR 1.32; PT 16.9 Sec (11.4-14.6)
--- NOTE | 2024-08-21 04:00 | PTCARENOTE ---
Patient reassessed. No significant changes. NSR BP 93/53 HR 59 POX 95% RA. Labs drawn.
--- NOTE | 2024-08-21 04:42 | W.PN.CT ---
Today's Communication / Plan
-
-No major issues overnight. Hemodynamically intact.
-Went into a-fib with RVR shortly after extubation on 08/17, converted after 5mg IV Lopressor and amiodarone bolus but had 3sec conversion pause. No further a-fib/pause since
-On heparin to coumadin bridge for mechanical AVR/postop a-fib, got 5 mg coumadin last night, INR 1.32 today
-Monitor Cr 1.3, peaked @ 1.8, was 0.7-0.9 preop
-Becerra removed yesterday. Had urinary retention which required straight cath for 700ml. Flomax if BP tolerates.
-Cont. diuresis, 24hr u/o 1745 mL
-Replace K
-Monitor elevated LFTs (improving). Avoid hepatotoxic meds (Tylenol, Amiodarone, Precedex)
-Maintain cordis
-Encourage use of IS
-OOB into chair
-Passed swallow evaluation and tolerating regular diet
-Eventual acute rehab placement ([facility])
Assessment / Plan
-
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
required extensive complex repairs & necessitated re-establishment of CPB x 2; Lysis of extensive circumferential adhesions; repair of a minor injury to the innominate vein; Open exposure of L SURVEY SUPERVISOR (assisted by vascular surgery) w/ proximal and
distal control on 08/13/[address] Delatorre, pod #8
-S/p Mediastinal exploration & washout/ Chest closure, by Dr. Delatorre, 08/15/24, pod#6
- Admitted on 08/13/24 for elective cath for exertional CP and abnormal stress test
- Cath 08/13/24 with successful PCI of 80% in-stent restenosis including the distal margin of the stent leading into the pamunkey vessel
and successful PCI of the 90% proximal stent edge restenosis, complicated by DE LOS SANTOS dissection.
- hx mechanical AVR /CAB[place] [address] Pal
- NSTEMI with 80% stenosis of LAD at DE [place] SANTOS anastomosis requiring LAD stent in 04/18/24- last Plavix dose was 08/11/24
- EF 45-50% by TTE 04/2024
- Chronic diastolic CHF
- HTN/HLD
- DM II ( on Trulicity and Jardiance)
- Coumadin anticoagulation for mechanical AVR - last dose 08/10/24
- Spinal stenosis L4-L5
- L knee arthroscopy 2012
- Cataract extraction
- Acute postop blood loss anemia in setting of preop coagulopathy (INR was 2.68 preop)- s/p multiple transfusions (13 pRBCs), transfused additional 2u PRBCs post
chest washout and closure
- Acute postop coagulopathy (4 FFPs, 1 cryo, Protamine)
- Acute postop thrombocytopenia (4 platelets), transfused additional 1 {5pk} plts post chest washout and closure
- Acute cardiogenic shock
- Acute postop atelectasis
- Acute postop hypovolemia with subsequent hypervolemia
- Acute postop pericarditis per ekg
- Acute postop pulmonary insufficiency
- Acute postop pleural effusion
- Acute postop hyponatremia
- Acute postop JULI
- Postop VDRF
- Acute postop afib with RVR
Subjective
-
Date of Service: August 21, 2024
Objective Data
-
Lab Results
08/21/24 03:21
08/21/24 03:21
PT 16.9 Sec (11.4-14.6) H 08/21/24 03:21
INR 1.32 08/21/24 03:21
APTT 120.6 Sec (23.4-35.0) H 08/21/24 00:42
Vital Signs
Vital Signs
Temp Pulse Resp BP Pulse Ox
97.8 F 59 17 93/53 96
08/21/24 04:00 08/21/24 04:00 08/21/24 04:00 08/21/24 04:00 08/21/24 04:00
CT Intake/Output/Weight
08/20/24 08/20/24 08/21/24
06:59 18:59 06:59
Intake Total 555.2 / 1970.5 162.6 / 473.6 311 / 473.6
Output Total 2175 / 4290 1045 / 1745 700 / 1745
Balance -1619.8 / -2319.5 -882.4 / -1271.4 -389 / -1271.4
SaO2: 96
Physical Exam
-
General: AOx3
Cardiovascular: Regular rate & rhythm (with PVC's)
Respiratory: Decreased Breath Sounds
Sternum: Stable
Incision: Clean, Dry and Intact
Extremities: Edema +1
[2024-08-21 04:50] LABS: ALT (SGPT) 149 U/L (0-50); AST (SGOT) 145 U/L (17-59); Albumin 2.9 g/dl (3.5-5.0); Alkaline Phosphatase 405 U/L (38-126); Blood Urea Nitrogen 63 mg/dl (9-20); Calcium 7.5 mg/dl (8.4-10.2); Carbon Dioxide 30 mmol/L (22-30); Chloride 98 mmol/L (98-107); Direct Bilirubin 1.2 mg/dl (0.0-0.4); Estimated Creatinine Clearance 60 ml/min; Glucose 113 mg/dl (70-99); Magnesium 2.4 mg/dl (1.6-2.3); Potassium 3.6 mmol/L (3.5-5.1); Sodium 134 mmol/L (135-145); eGFR 58.01
--- NOTE | 2024-08-21 06:00 | PTCARENOTE ---
Left side of abdomen hard area near left groin site. CT POP Ferrer made aware. Possible stool impaction.
--- NOTE | 2024-08-21 06:00 | PTCARENOTE ---
Patient had small BM w/ constipation. Max assist to bedside cammode. Patient stated he was dizzy after sitting on commode. Assisted back to bed BP stable. Bladder scanned for 272mL. 40 meq KCl PO per CT POP Ferrer.
[2024-08-21] MEDS: TYLENOL 1000 MG PO ×2 (06:05→21:32)
[2024-08-21] MEDS: KCL 40 MEQ PO ×2 (06:05→08:20)
[2024-08-21] MEDS: DULCOLAX 10 MG RECTAL (06:15)
--- NOTE | 2024-08-21 06:27 | PTCARENOTE ---
Suppository given per CT POP Ferrer for constipation/fecal impaction.
[2024-08-21] MEDS: NOVOLOG FLEXPEN-MODERATE RESISTANCE SC ×2 (07:03→17:36)
[2024-08-21] MEDS: NOVOLOG FLEXPEN 10 UNITS SC ×3 (07:24→17:36)
--- NOTE | 2024-08-21 08:00 | PTCARENOTE ---
Patient received from previous RN. AAOx3. NSR HR 60s. VSS. reports feeling light headed and a bit dizzy. +pulses trace edema. POX 96% RA. Lungs coarse and diminished. occasional dry non prod cough. + bowel sounds with good appetite. required
straight cath overnight. Will continue to monitor and follow along for ability to urinate on own and bladder scan/straight cath as necessary. All surgical sites stable. DTI on sacrum. dressing changed. RIJ cordis and R/L PIV present and patent.
heparin gtt infusing at ordered rate. Will continue to monitor.
[2024-08-21] MEDS: LOW STRENGTH ASPIRIN 81 MG PO (08:19)
[2024-08-21] MEDS: VITAMIN C 500 MG PO (08:20)
[2024-08-21] MEDS: SENOKOT-S 1 TABLET PO (08:20)
[2024-08-21] MEDS: PLAVIX 75 MG PO (08:20)
[2024-08-21] MEDS: NEURONTIN 100 MG PO ×3 (08:21→21:32)
[2024-08-21] MEDS: TOPROL XL PO ×2 (08:21→09:27)
[2024-08-21] MEDS: FEOSOL 325 MG PO (08:21)
[2024-08-21] MEDS: PROTONIX 40 MG PO (08:23)
[2024-08-21] MEDS: MUCINEX 1200 MG PO ×2 (08:23→20:33)
[2024-08-21] MEDS: THERAGRAN 1 TABLET PO (08:23)
[2024-08-21] MEDS: LIDOCAINE 4% PATCH TOPICAL (08:24)
[2024-08-21] MEDS: MIRALAX TUBE (08:24)
[2024-08-21] MEDS: NSS IV (08:25)
[2024-08-21] MEDS: BUMEX 2 MG PO ×2 (08:26→15:26)
[2024-08-21] MEDS: PACERONE 200 MG PO ×3 (08:37→21:31)
--- NOTE | 2024-08-21 08:55 | W.PN.CD ---
Today's Communication / Plan
-
Dizziness this AM with two episodes no focal deficits
Monitor tele and BP
holding metop this AM given dizziness
Impression / Plan
-
Impression/Plan: 74 y/o male with DM2, HTN, HLD, severe s/p mechanical SAVR and multivessel CAD s/p prior CABG (DE LOS SANTOS to LAD, sequential SVG to OM to RPDA) with prior PCI to the mid-LAD + LAD/DE LOS SANTOS anastamosis, admitted after PCI to ISR lesions
was complicated by DE LOS SANTOS dissection requiring emergent re-operation with SVG to LAD.
#CAD
-Cath showed an 80% ISR lesion in the LAD/DE LOS SANTOS stent as well as a 90% proximal stent edge lesion, patent sequential SVG.
-PCI performed on the 80% ISR lesion (Xience Skypoint 2.25 x 18 ELLIOTT, post dilated with a 2.75 NCB in the overlap) and the 90% proximal stent edge lesion (Xience Skypoint 3.0 x 26 ELLIOTT, post dilated with a 3.0 NCB) with reduction in stenoses to 0%.
-At the end of the procedure, the lesion could not be rewired after pulling back due to tension on the balloon. Repeat angiography showed spiral dissection of the DE LOS SANTOS graft, which could not be re-wired.
-PCI of the [place] LAD was attempted, but the lesion could not be wired.
-The patient was taken for emergent CABG.
#CABG/cardiogenic shock
-Acute. EF post op 40-45%
-Repeat CABG (SVG to LAD), with Dr. Delatorre, 08/13/2024.
-CABG was complicated by RV laceration by a retained sternal wire with progressive RV disruption medial to the anastomosis, requiring extensive surgical repair and emergent ECMO cannulation.
-Chest was left open at the end of the surgery, back to OR 08/15/24 for mediastinal exploration , washout and closure
-Vascular surgery was called into the OR and performed primary repair of the peripheral cannulation site.
-Extubated 08/17/24.
-Continue current medication regimen and supportive care.
-Add GDMT as able.
#AF with RVR: new onset, on Amiodarone, still with rates in the 160's
-on po amio
-Start Toprol-XL 25 mg daily when able.
-On heparin drip until therapeutic INR.
NSVT:
-amio initiated.
-Stable.
Dizziness
- new today hx of vestibular vertigo
- monitor no focal deficits
#Mechanical AVR
-Chronic, stable.
- IV heparin
- Continue warfarin.
#HTN
-Chronic,
#HLD
-Chronic. stain
#DM2
-Chronic.
-Insulin gtt per protocol.
Condition:
Guarded still not HD stable after extubation with RVR
CCT 30 minutes, d/w CTPA Lise Augustin
Subjective/Interval History:
No events overnight.
DATA:
Intraop HAILEY:
CONCLUSIONS
Mild Global hypokinesis with akinesis of the apical septal wall. LVEF is 40-
45% by visual inspection.
A well-seated and properly functioning mechanical aortic prosthesis is seen.
The mitral valve is heavily calcified without stenosis. Mild regurgitation is
seen.
Mild tricuspid regurgitation.
Grade III atheromatous disease of the arch and descending thoracic aorta.
Cardiac catheterization/PCI, 08/13/2024:
CONCLUSIONS
1. Right dominant circulation with chronic total occlusion of the RCA, diffusely diseased and calcified left main coronary artery, a chronically totally occluded circumflex and a diffusely diseased proximal LAD with a COUNTER POCKET TRIMMER of the mid LAD status post
prior bypass (DE LOS SANTOS to LAD, sequential SVG to OM to RPDA) with prior PCI of de darrick mid LAD disease in the mid LAD extending into the DE LOS SANTOS anastomosis, now with a 90% stent edge lesion, haziness at the distal stent edge and an 80% ISR lesion in the
distal third of the stent.
2. Status post successful PCI of the distal stent edge haziness and 80% ISR (Xience Skypoint 2.25 x 18 ELLIOTT, postdilated with a 2.75 NC balloon and the stent overlap section) with reduction in stenosis to 0%, maintaining REINALDO-3 flow.
3. Status post successful PCI of the 90% proximal stent edge lesion into the DE LOS SANTOS graft (Xience Skypoint 3.0 x 28 ELLIOTT, postdilated with a 3.0 NC balloon) with reduction in stenosis to 0%, subsequently complicated by spiral dissection of the DE LOS SANTOS
graft.
4. Unsuccessful rewiring of the dissected DE LOS SANTOS graft with propagation.
5. Unsuccessful wiring of the [place] LAD.
6. Given the compromise of the DE LOS SANTOS flow, inability to successfully rewire the DE LOS SANTOS and inability to open the [place] artery, CT surgery was called to bedside. The patient's films were reviewed and the situation assessed. After it was clear that
the [place] LAD circulation was not amenable to PCI, the decision was made to take the patient for emergent bypass.
Physical Exam
Vital Signs/Labs
Vital Signs
Temp Pulse Resp BP Pulse Ox
98 F 63 28 117/57 93
08/21/24 08:00 08/21/24 08:37 08/21/24 06:48 08/21/24 06:48 08/21/24 08:00
08/20/24 08/21/24 08/22/24
06:59 06:59 06:59
Actual Weight 214 lb 1.102 oz 216 lb 4.375 oz
08/21/24 03:21
08/21/24 03:21
PT 16.9 Sec (11.4-14.6) H 08/21/24 03:21
INR 1.32 08/21/24 03:21
APTT 120.6 Sec (23.4-35.0) H 08/21/24 00:42
Magnesium 2.4 mg/dl (1.6-2.3) H 08/21/24 03:21
Triglycerides 49 mg/dl (10-149) 08/13/24 18:21
Physical Exam
Constitutional: No acute distress and Comfortable
EENT: Anicteric
Cardiovascular: Rhythm & rate is regular
Respiratory: Other (improved inspiratory effort )
GI: Soft
Neuro/Psych: Alert and Oriented
Data Reviewed
-
Date of Service: August 21, 2024
EKG: Tracing Personally Visualized and interpreted (sr)
Echo: Tracing Personally Visualized and interpreted
Labs: Labs Reviewed by me
[2024-08-21 09:02] LABS: APTT 103.8 Sec (23.4-35.0)
--- NOTE | 2024-08-21 09:28 | PN.DE.MGMTRT ---
Insulin Management
- -
08/21/2024 Diabetes Management Follow up
74 year old male with PMH: CAD - CABG 2008 PCI 04/2024, [place], CHF, HTN, HCL, diabetes, PAT, valve disease - mechanical AVR.
Presented with Spiral dissection of KYLIE-to-LAD anastomosis w/ CP and intermittent BRENDA.
POD #8 s/p Emergent Pump-assist beating heart bypass w/ GSV to LAD; Repair of RV injury; Significant progressive RV disruption just medial to the GSV-to-LAD anastomosis that required extensive complex repairs & necessitated re-establishment of CPB x
2; Lysis of extensive circumferential adhesions; repair of a minor injury to the innominate vein. POD #6 S/P Mediastinal exploration & washout/ Chest closure.
Prior to admission was taking Jardiance 25 mg daily and Trulicity 4.5 weekly on Sunday. A1C 6.5%, Cr 0.7-->1.8, eGFR 39.25 today.
Pt awake, alert, oriented, resting in bed, offers no complaints, able to discuss diabetes care. - Catrachita at bedside.
Pt states he has a working glucose meter at home and checks his blood sugars daily- fasting. Discussed use of insulin at this time both lantus and novolog for glucose control.
08/21 Hs lantus dose 15 units, fasting glucose 113 today. AC novolog increased to 10 units with low corrective, HS glucose improved 148.
Will continue lantus 15 units @ hs with novolog 10 units AC with moderate corrective.
Discussed with Nurse. Will cont to follow.
08/20 Discussed importance of glucose control to avoid wound infection. He is in agreement. Will increase home glucose monitoring to AC HS and report to primary doctor after discharge. Patient states he is confident with self injections as he was
taking Trulicity before admission. Reviewed subtle differences between trulicity pen preparation and insulin pen preparation; provided printed instructions for each step of pen prep and injection technique.
Diabetes History
- -
Type of Diabetes: 2 requiring insulin
Pre-Admission Diabetes Regimen
08/21/24
03:21
Creatinine 1.3
Lab Results
Hemoglobin A1c 6.5 % (4.0-5.6) H 08/13/24 09:36
Hemoglobin A1c Cancelled 08/13/24 09:36
Insulin Pump Settings
IP Diabetes Regimen
08/20/24 08/20/24 08/20/24
12:10 16:46 21:26
Glucose
POC Glucose 288 H 238 H 148 H
08/21/24
03:21
Glucose 113 H
POC Glucose
Patient Education
[2024-08-21] MEDS: FLOMAX 0.4 MG PO (09:35)
[2024-08-21 12:29] LABS: Glucose - Point of Care 209 mg/dl (70-99)
[2024-08-21] MEDS: NOVOLOG FLEXPEN-MODERATE RESISTANCE 3 UNITS SC (12:30)
--- NOTE | 2024-08-21 14:53 | CM ---
Reviewed chart. Telephone call to [facility]. at Liaison to check on status of referral. Awaiting PM&R eval. Will need to pre-cert with his insurance. Medical work-up in progress. The discharge plan is to go to acute rehab. -hopefully at [facility]. if approved for admission and approved by insurance when medically stable.
[2024-08-21 15:02] LABS: APTT 96.6 Sec (23.4-35.0)
[2024-08-21] MEDS: FLEXERIL 5 MG PO (15:27)
[2024-08-21] MEDS: TYLENOL PO (15:28)
[2024-08-21] MEDS: NITRO-BID TOPICAL (17:37)
[2024-08-21] MEDS: ZETIA 10 MG PO (17:54)
[2024-08-21] MEDS: LIPITOR 40 MG PO (17:54)
[2024-08-21] MEDS: COUMADIN 7.5 MG PO (17:54)
--- NOTE | 2024-08-21 20:31 | PTCARENOTE ---
received pt from previous RN. AAOx3. NSR HR 80s. VSS.+pulses trace edema. POX 96% RA. Lungs coarse and diminished. occasional dry non prod cough. + bowel sounds, +bm, voids spontaneously in urinal. All surgical sites stable. DTI on sacrum. dressing
changed. RIJ cordis and R/L PIV present and patent. heparin gtt infusing at ordered rate. plan of care discussed questions encouraged
[2024-08-21] MEDS: TOPROL XL 12.5 MG PO (20:32)
[2024-08-21] MEDS: SENOKOT-S PO (20:33)
[2024-08-21] MEDS: LANTUS 0.15 UNITS SC (21:33)
[2024-08-21] MEDS: ROXICODONE 2.5 MG PO (21:34)
[2024-08-21 21:35] LABS: Glucose - Point of Care 194 mg/dl (70-99)
--- NOTE | 2024-08-21 23:29 | PTCARENOTE ---
VSS, +1 bm, NSR per tele monitor HR 60s, assessment remains unchanged otherwise.
[2024-08-22] VITALS (16 sets, daily range): BP systolic 99–120; BP diastolic 49–65; PULSE 65–90; O2SAT 100; BMI 30.3
[2024-08-22] MEDS: XANAX 0.25 MG PO ×2 (02:48→22:30)
[2024-08-22 03:37] LABS: Hematocrit 23.9 % (39.0-52.0); Mean Corp Hgb Conc. 33.5 g/dL (33.0-37.0); Mean Corpuscular Hgb 29.1 pg (27.0-31.0); Mean Corpuscular Volume 86.9 fL (80.0-94.0); Mean Platelet Volume 11.8 fL (7.4-10.4); Platelet Count 236 10^3/uL (130-400); Red Blood Cell Count 2.75 10^6/uL (4.70-6.10); Red Cell Dist. Width 18.8 % (11.5-14.5); White Blood Cell Count 16.5 10^3/uL (4.8-10.8)
[2024-08-22 03:45] LABS: INR 1.74; PT 20.9 Sec (11.4-14.6)
[2024-08-22 03:56] LABS: ALT (SGPT) 117 U/L (0-50); AST (SGOT) 78 U/L (17-59); Albumin 2.8 g/dl (3.5-5.0); Alkaline Phosphatase 370 U/L (38-126); Blood Urea Nitrogen 55 mg/dl (9-20); Calcium 7.6 mg/dl (8.4-10.2); Carbon Dioxide 29 mmol/L (22-30); Chloride 98 mmol/L (98-107); Estimated Creatinine Clearance 60 ml/min; Glucose 127 mg/dl (70-99); Magnesium 2.2 mg/dl (1.6-2.3); Potassium 3.4 mmol/L (3.5-5.1); Sodium 133 mmol/L (135-145); Total Bilirubin 2.9 mg/dl (0.2-1.3); Total Protein 5.1 g/dl (6.3-8.2); eGFR 58.01
[2024-08-22] MEDS: KLOR-CON 40 MEQ PO (05:38)
[2024-08-22] MEDS: NITRO-BID 0.5 INCH TOPICAL ×3 (05:38→17:00)
[2024-08-22] MEDS: TYLENOL 1000 MG PO ×2 (05:40→15:00)
[2024-08-22] MEDS: CALCIUM GLUCONATE 100 IV (05:41)
--- NOTE | 2024-08-22 06:13 | PTCARENOTE ---
Patient reassessed. VSS. No c/o pain. Patient given one dose xanax for anxiety CT PA added prn HS order. AM labs obtained. AM hygiene care provided. Patient with +BM this AM. K and Ca repleted.
[2024-08-22 06:29] LABS: APTT 133.6 Sec (23.4-35.0)
[2024-08-22] MEDS: NOVOLOG FLEXPEN-MODERATE RESISTANCE 1 UNITS SC (07:25)
[2024-08-22] MEDS: NOVOLOG FLEXPEN 10 UNITS SC ×3 (07:25→16:51)
[2024-08-22 07:26] LABS: Glucose - Point of Care 184 mg/dl (70-99)
--- NOTE | 2024-08-22 07:42 | PN.DE.MGMTRT ---
Insulin Management
- -
08/22/2024: Diabetes Management Follow up
74 year old male with PMH: CAD - CABG 2008 PCI 04/2024, [place], CHF, HTN, HCL, diabetes, PAT, valve disease - mechanical AVR.
Presented with Spiral dissection of KYLIE-to-LAD anastomosis w/ CP and intermittent BRENDA.
POD #8 s/p Emergent Pump-assist beating heart bypass w/ GSV to LAD; Repair of RV injury; Significant progressive RV disruption just medial to the GSV-to-LAD anastomosis that required extensive complex repairs & necessitated re-establishment of CPB x
2; Lysis of extensive circumferential adhesions; repair of a minor injury to the innominate vein. POD #6 S/P Mediastinal exploration & washout/ Chest closure.
Prior to admission was taking Jardiance 25 mg daily and Trulicity 4.5 weekly on Sunday. A1C 6.5%, Cr 0.7-->1.8, eGFR 39.25 today.
Pt awake, alert, oriented, resting in bed, offers no complaints, able to discuss diabetes care. - Catrachita at bedside.
Pt states he has a working glucose meter at home and checks his blood sugars daily- fasting.
Discussed use of insulin at this time both Lantus and NovoLog for glucose control.
08/21 Received Hs Lantus dose 15 units, fasting glucose 184 today. AC NovoLog was increased to 10 units yesterday.
Will continue Lantus 15 units @ hs with NovoLog 10 units AC with moderate corrective.
Discussed with Nurse. Will cont to follow.
08/20 Discussed importance of glucose control to avoid wound infection. He is in agreement. Will increase home glucose monitoring to HS and report to primary doctor after discharge. Patient states he is confident with self injections as he was
taking Trulicity before admission. Reviewed subtle differences between Trulicity pen preparation and insulin pen preparation; provided printed instructions for each step of pen prep and injection technique.
Diabetes History
- -
Type of Diabetes: 2 requiring insulin
Pre-Admission Diabetes Regimen
08/22/24
03:00
Creatinine 1.3
Lab Results
Hemoglobin A1c 6.5 % (4.0-5.6) H 08/13/24 09:36
Hemoglobin A1c Cancelled 08/13/24 09:36
Insulin Pump Settings
IP Diabetes Regimen
08/21/24 08/21/24 08/22/24
12:28 21:33 03:00
Glucose 127 H
POC Glucose 209 H 194 H
08/22/24
07:23
Glucose
POC Glucose 184 H
Meal type: Breakfast
Amount consumed: 75%
Patient Education
--- NOTE | 2024-08-22 07:59 | W.PN.CD ---
Today's Communication / Plan
-
Continue current supportive management.
PT/OT.
Impression / Plan
-
Impression/Plan: 74 y/o male with DM2, HTN, HLD, severe s/p mechanical SAVR and multivessel CAD s/p prior CABG (DE LOS SANTOS to LAD, sequential SVG to OM to RPDA) with prior PCI to the mid-LAD + LAD/DE LOS SANTOS anastamosis, admitted after PCI to ISR lesions
was complicated by DE LOS SANTOS dissection requiring emergent re-operation with SVG to LAD.
#CAD
-Cath showed an 80% ISR lesion in the LAD/DE LOS SANTOS stent as well as a 90% proximal stent edge lesion, patent sequential SVG.
-PCI performed on the 80% ISR lesion (Xience Skypoint 2.25 x 18 ELLIOTT, post dilated with a 2.75 NCB in the overlap) and the 90% proximal stent edge lesion (Xience Skypoint 3.0 x 26 ELLIOTT, post dilated with a 3.0 NCB) with reduction in stenoses to 0%.
-At the end of the procedure, the lesion could not be rewired after pulling back due to tension on the balloon. Repeat angiography showed spiral dissection of the DE LOS SANTOS graft, which could not be re-wired.
-PCI of the cahto LAD was attempted, but the lesion could not be wired.
-The patient was taken for emergent CABG.
#CABG/cardiogenic shock
-Acute. EF post op 40-45%
-Repeat CABG (SVG to LAD), with Dr. Delatorre, 08/13/2024.
-CABG was complicated by RV laceration by a retained sternal wire with progressive RV disruption medial to the anastomosis, requiring extensive surgical repair and emergent ECMO cannulation.
-Chest was left open at the end of the surgery, back to OR 08/15/24 for mediastinal exploration , washout and closure
-Vascular surgery was called into the OR and performed primary repair of the peripheral cannulation site.
-Extubated 08/17/24.
-Tolerating metoprolol succinate 12.5 mg BID.
#AF with RVR:
-New onset.
-Resolved on amiodarone, tolerating additional metoprolol.
-On heparin drip until therapeutic INR.
NSVT:
-Stable.
-Amiodarone.
Dizziness
-Two episodes yesterday.
#Mechanical AVR
-Chronic, stable.
-IV heparin until INR is therapeutic.
#HTN
-Chronic, borderline hypotension.
-Tolerating metoprolol.
#HLD
-Chronic.
-Continue atorvastatin.
#DM2
-Chronic.
-Insulin gtt per protocol.
Critical Care Time = 37 minutes.
Subjective/Interval History:
Two episodes of dizziness yesterday.
Metoprolol held but BP stable.
None since.
DATA:
Intraop HAILEY:
CONCLUSIONS
Mild Global hypokinesis with akinesis of the apical septal wall. LVEF is 40-
45% by visual inspection.
A well-seated and properly functioning mechanical aortic prosthesis is seen.
The mitral valve is heavily calcified without stenosis. Mild regurgitation is
seen.
Mild tricuspid regurgitation.
Grade III atheromatous disease of the arch and descending thoracic aorta.
Cardiac catheterization/PCI, 08/13/2024:
CONCLUSIONS
1. Right dominant circulation with chronic total occlusion of the RCA, diffusely diseased and calcified left main coronary artery, a chronically totally occluded circumflex and a diffusely diseased proximal LAD with a KENNEL SUPERVISOR of the mid LAD status post
prior bypass (DE LOS SANTOS to LAD, sequential SVG to OM to RPDA) with prior PCI of de darrick mid LAD disease in the mid LAD extending into the DE [place] SANTOS anastomosis, now with a 90% stent edge lesion, haziness at the distal stent edge and an 80% ISR lesion in the
distal third of the stent.
2. Status post successful PCI of the distal stent edge haziness and 80% ISR (Xience Skypoint 2.25 x 18 ELLIOTT, postdilated with a 2.75 NC balloon and the stent overlap section) with reduction in stenosis to 0%, maintaining REINALDO-3 flow.
3. Status post successful PCI of the 90% proximal stent edge lesion into the DE LOS SANTOS graft (Xience Skypoint 3.0 x 28 ELLIOTT, postdilated with a 3.0 NC balloon) with reduction in stenosis to 0%, subsequently complicated by spiral dissection of the DE LOS SANTOS
graft.
4. Unsuccessful rewiring of the dissected DE LOS SANTOS graft with propagation.
5. Unsuccessful wiring of the cahto LAD.
6. Given the compromise of the DE [place] SANTOS flow, inability to successfully rewire the DE LOS SANTOS and inability to open the cahto artery, CT surgery was called to bedside. The patient's films were reviewed and the situation assessed. After it was clear that
the cahto LAD circulation was not amenable to PCI, the decision was made to take the patient for emergent bypass.
Physical Exam
Vital Signs/Labs
Vital Signs
Temp Pulse Resp BP Pulse Ox
36.5 C 60 18 105/65 99
08/22/24 03:00 08/22/24 07:52 08/22/24 07:53 08/22/24 07:52 08/22/24 07:53
08/20/24 08/21/24 08/22/24
11:59 11:59 11:59
Actual Weight 97.1 kg 98.1 kg 97 kg
08/22/24 03:00
08/22/24 03:00
PT 20.9 Sec (11.4-14.6) H 08/22/24 03:00
INR 1.74 08/22/24 03:00
APTT 133.6 Sec (23.4-35.0) H 08/22/24 06:07
Magnesium 2.2 mg/dl (1.6-2.3) 08/22/24 03:00
Triglycerides 49 mg/dl (10-149) 08/13/24 18:21
Physical Exam
Constitutional: No acute distress and Comfortable
EENT: Anicteric and Moist mucous membranes
Cardiovascular: Rhythm & rate is regular, Pedal edema is absent, JVD pressure is normal, S1S2 is normal and Murmur/rub/gallop absent
Respiratory: Respiratory effort normal, Lungs clear to auscul., Wheeze Absent, Crackles Absent and Rhonchi Absent
GI: Soft, Distention absent, Flat, Non tender and Normal bowel sounds
Neuro/Psych: AO x 3
Data Reviewed
-
Date of Service: August 22, 2024
Medical Decision Making: Reviewed Test Results, Independent Historian Assessment and Test Interpretation
EKG: Tracing Personally Visualized and interpreted and Report Reviewed by me
Echo: Tracing Personally Visualized and interpreted and Report Reviewed by me
X-Ray/CT/US/MRI/NUC/PET: Image Personally Visualized and interpreted and Report Reviewed by me
Medical Tests (PFT, Pathology etc): Image Personally Visualized and interpreted and Report Reviewed by me
Labs: Labs Reviewed by me
Old Records: Reviewed
--- NOTE | 2024-08-22 08:00 | PTCARENOTE ---
pt received from previous RN, SUGEY watson, follows commands, equal strength throughout. SR on the monitor, HR 60s. SBP 100s. pt on RA, 99% POX. lungs diminished in bases. 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 IS encouraged. pt abdomen round, s/n, denies n/v. diet tolerated
well. pt states had several formed BMs. voids, stress incontinence at times. max assist OOB. sternal incision dressing intact, old drainage. chest tube sutures ADELIA. R groin puncture c/d/i, ecchymotic. L groin dressing old drainage. RLE incisions
BATCH MAKER, ecchymotic. sacral dressing intact. RIJ cordis maintained. PIV x2. heparin gtt restarted as ordered. at bedside. see worklist for VS, I&O, and assessment.
--- NOTE | 2024-08-22 08:00 | W.PN.CT ---
Today's Communication / Plan
-
-pod #9
-no significant issues overnight. Hemodynamically and neurologically intact
-had nightmares last night, woke up with anxiety- better with prn Xanax
-repleted K and Ca
-PTT 133.6- renewed iv Heparin for mechanical AVR
-got 7.5 mg of Coumadin on 08/21. INR today 1.74- continue Coumadin
-Cr 1.3 stable
-weaned of O2 - pOx 93% on RA
-LFTs improving. Avoid hepatotoxic meds (Tylenol, Amiodarone, Precedex)
-maintain cordis
-encourage use of IS, OOB into chair
-passed swallow evaluation and tolerating regular diet
-eventual acute rehab placement ([facility])
-appreciate everyone's input
Assessment / Plan
-
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
required extensive complex repairs & necessitated re-establishment of CPB x 2; Lysis of extensive circumferential adhesions; repair of a minor injury to the innominate vein; Open exposure of L WIDTH STRIPPER (assisted by vascular surgery) w/ proximal and
distal control on 08/13/[address] Delatorre, pod #9
-S/p Mediastinal exploration & washout/ Chest closure, by Dr. Delatorre, 08/15/24, pod#6
- Admitted on 08/13/24 for elective cath for exertional CP and abnormal stress test
- Cath 08/13/24 with successful PCI of 80% in-stent restenosis including the distal margin of the stent leading into the galena vessel
and successful PCI of the 90% proximal stent edge restenosis, complicated by [place] dissection.
- hx mechanical AVR /CABG [place] [address] Pla
- NSTEMI with 80% stenosis of LAD at [place] anastomosis requiring LAD stent in 04/18/24- last Plavix dose was 08/11/24
- EF 45-50% by TTE 04/2024
- Chronic diastolic CHF
- HTN/HLD
- DM II ( on Trulicity and Jardiance)
- Coumadin anticoagulation for mechanical AVR - last dose 08/10/24
- Spinal stenosis L4-L5
- L knee arthroscopy 2012
- Cataract extraction
- Acute postop blood loss anemia in setting of preop coagulopathy (INR was 2.68 preop)- s/p multiple transfusions (13 pRBCs), transfused additional 2u PRBCs post
chest washout and closure
- Acute postop coagulopathy (4 FFPs, 1 cryo, Protamine)
- Acute postop thrombocytopenia (4 platelets), transfused additional 1 {5pk} plts post chest washout and closure
- Acute cardiogenic shock
- Acute postop atelectasis
- Acute postop hypovolemia with subsequent hypervolemia
- Acute postop pericarditis per ekg
- Acute postop pulmonary insufficiency
- Acute postop pleural effusion
- Acute postop hyponatremia
- Acute postop JULI
- Postop VDRF
- Acute postop afib with RVR
Discussed patient care with: Nursing and Care Team
Subjective
-
Date of Service: August 22, 2024
Objective Data
-
Lab Results
08/22/24 03:00
08/22/24 03:00
PT 20.9 Sec (11.4-14.6) H 08/22/24 03:00
INR 1.74 08/22/24 03:00
APTT 133.6 Sec (23.4-35.0) H 08/22/24 06:07
Vital Signs
Vital Signs
Temp Pulse Resp BP Pulse Ox
97.7 F 60 18 105/65 99
08/22/24 03:00 08/22/24 07:52 08/22/24 07:53 08/22/24 07:52 08/22/24 07:53
CT Intake/Output/Weight
08/21/24 08/22/24 08/22/24
18:59 06:59 18:59
Intake Total 125 / 319 184 / 319
Output Total 810 / 1760 950 / 1760
Balance -685 / -1441 -766 / -1441
SaO2: 99
Physical Exam
-
General: Awake and AOx3
Cardiovascular: Regular rate & rhythm, No Murmurs and No Rub
Respiratory: Decreased Breath Sounds
Sternum: Stable
Incision: Clean, Dry and Dressing Intact
Extremities: Edema +1
Abdomen: soft, nontender, nondistended, + bowel sounds
Data Reviewed
-
Lab Results: Results Reviewed
Medications: Active Meds Reviewed
Chest X-Ray: Report Reviewed and Image Reviewed
ECG: Report Reviewed and Image Reviewed
[2024-08-22] MEDS: FARXIGA 10 MG PO (08:34)
[2024-08-22] MEDS: PLAVIX 75 MG PO (08:34)
[2024-08-22] MEDS: FLOMAX 0.4 MG PO (08:34)
[2024-08-22] MEDS: FEOSOL 325 MG PO (08:34)
[2024-08-22] MEDS: MUCINEX 1200 MG PO ×2 (08:34→20:20)
[2024-08-22] MEDS: THERAGRAN 1 TABLET PO (08:34)
[2024-08-22] MEDS: PACERONE 200 MG PO ×3 (08:35→22:29)
[2024-08-22] MEDS: SENOKOT-S PO ×2 (08:35→20:15)
[2024-08-22] MEDS: ROXICODONE 2.5 MG PO (08:35)
[2024-08-22] MEDS: PROTONIX 40 MG PO (08:36)
[2024-08-22] MEDS: BUMEX 2 MG PO ×2 (08:36→15:28)
[2024-08-22] MEDS: NEURONTIN 100 MG PO ×3 (08:36→22:29)
[2024-08-22] MEDS: VITAMIN C 500 MG PO (08:36)
[2024-08-22] MEDS: LIDOCAINE 4% PATCH 1 PATCH TOPICAL (08:36)
[2024-08-22] MEDS: LOW STRENGTH ASPIRIN 81 MG PO (08:36)
[2024-08-22] MEDS: MIRALAX TUBE (08:37)
--- NOTE | 2024-08-22 09:15 | CON.MD ---
Documented by User: Davina Oh PA-C 08/22/24 15:11
Consultation - Medical
-
Referring Provider:�Juan Ramon Tolentino
Chief Complaint:�Debility, CABG wit extensive repair,
�
History of Present Illness:�74-year-old male with a history of (CAD, Hypertension, hyperlipidemia, diabetes, PAT�resolved with 80 pound weight loss, mechanical AVR, spinal stenosis, tremors, cataract, valve disease�mechanical AVR, CHF, history of
ND- 04/2024) underwent elective cardiac catheterization for exertional chest pain and abnormal stress test with successful PCI of 80% in-stent restenosis and successful PCI of 90% proximal stent edge restenosis complicated by DE LOS SANTOS dissection
underwent emergent pump assisted beating heart bypass with repair of RV injury by Dr. Delatorre 08/13/2024 with Ventilator dependent respiratory failure postoperatively, Leukocytosis, thrombocytopenia requiring multiple transfusion, cardiogenic shock,
atelectasis, hypovolemia with subsequent hypervolemia, pericarditis per EKG, pulmonary insufficiency, hyponatremia, JULI, VDRF anemia-normocytic. Status post mediastinal exploration and washout/chest closure on 08/15/2024 ,extubated 08/17/24. On
Supplemental oxygen as needed. Chest x-ray with right pleural effusion. And subsegmental atelectasis left base. Went into a-fib with RVR shortly after extubation on 08/17, converted after 5mg IV Lopressor and amiodarone bolus but had 3sec conversion
pause. No further a-fib/pause since. On heparin to Coumadin bridge for mechanical AVR/postop a-fib. Becerra removed Had urinary retention which required straight cath. Passed swallow evaluation and tolerating regular diet
�
Past Medical History:�Hypertension, hyperlipidemia, diabetes, PAT�resolved with 80 pound weight loss, mechanical AVR, spinal stenosis, tremors, cataract, valve disease�mechanical AVR, CHF, history of ND,
Procedure History:�CAD/CABG 2008/stent-LAD 2023, Mechanical AVR number 27 mm 2008, Left knee arthroscopy, cataract extraction
Family History:�Mother: at Age (58) and Cause of (CAD), Father: at Age (59) and Cause of (CAD)
�
Social History:�
Functional Level Premorbidly:�Independent with all activities�
Functional Level Currently:�Eating�set up, grooming�min assist, toileting, lower extremity self-care�dependent, toilet transfer�mod assist, bed mobility max assist, able to bear weight and take a few steps with a walker at mod assist of 2
�
Tobacco:�Denies�
Alcohol:�Denies�
Drug use:�Denies�
�
Lives with:�Spouse
24-hour assistance available:�
Number of floors:�2
# steps to enter:�
# steps to second floor:
Potential First floor set up:�Yes
Driving:�Yes, but predominantly drives due to patient with neuropathy in legs.
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
�
�
Allergies:�
Allergy/AdvReac Type Severity Reaction Status Date / Time
levofloxacin [From Levaquin] Allergy Unknown Verified 08/13/24 07:27
rosuvastatin calcium Allergy Unknown Verified 08/13/24 07:27
[From Crestor]
simvastatin [From Zocor] Allergy MYALGIAS/leg Verified 08/13/24 07:27
cramping
�
Review of Systems:�
Constitutional: (x) Normal _
Eye: (x) Normal _
Ear/Nose/Throat: (x) Normal _
Respiratory: (x) AbNormal _ atelectasis
Cardiovascular: (x) abNormal _CABG, h/o ND
Gastrointestinal: (x) abNormal _constipation-small bowel movements, bowel incontinence with cough
Genitourinary: (x) abNormal _BPH
Musculoskeletal: (x) Normal _
Integumentary: (x) Normal _
Neurologic: (x) Normal _
Psychiatric: (x) Normal _
Endocrine: (x) abNormal _DM
Hematologic/Lymphatic: (x) abNormal _anemia postop
Allergic/Immunologic: (x) Normal _
�
Medications:�
Active Current Visit Medication List
Category Date Time Status
0.9% Sodium Chloride 500 ml [Nss] 500 ml Med 08/15/24 10:15 Active
IV CORDIS
Acetaminophen [Tylenol] Med 08/13/24 17:46 Active
1,000 mg PO TID@0600,1400,2200
Acetaminophen [Tylenol] Med 08/13/24 17:46 Active
650 mg PO Q4HPRN PRN
Alprazolam [Xanax] Med 08/22/24 02:39 Active
0.25 mg PO HS PRN
Amiodarone [Pacerone] Med 08/13/24 17:46 Active
200 mg PO TID
Ascorbic Acid [Vitamin C] Med 08/14/24 08:00 Active
500 mg PO DAILY
Aspirin Chewable [Low Strength Aspirin] Med 08/14/24 08:00 Active
81 mg PO DAILY
Atorvastatin [Lipitor] Med 08/13/24 18:00 Active
40 mg PO QPM
Bisacodyl [Dulcolax] Med 08/13/24 17:46 Active
10 mg RECTAL DAILYPRN PRN
Bumetanide [Bumex] Med 08/21/24 08:00 Active
2 mg PO BID@0800,1600
Clopidogrel Bisulfate [Plavix] Med 08/14/24 08:00 Active
75 mg PO DAILY
Cyclobenzaprine HCl [Flexeril] Med 08/13/24 17:46 Active
5 mg PO Q8HPRN PRN
Dapagliflozin [Farxiga] Med 08/18/24 09:00 Active
10 mg PO DAILY
Dextrose 50%-Water [Dextrose 50% Syringe] Med 08/18/24 11:30 Active
12.5 grams IV I85NDOH PRN
Docusate W/Senna [Senokot-S] Med 08/13/24 20:00 Active
1 tablet PO Q12
Ezetimibe [Zetia] Med 08/13/24 18:00 Active
10 mg PO QPM
Ferrous Sulfate [Feosol] Med 08/14/24 08:00 Active
325 mg PO DAILY
Flush (0.9% Sodium Chloride) [Flush (Nss)] Med 08/13/24 23:00 Active
See Dose Instructions IV PER PROTOCOL
Gabapentin [Neurontin] Med 08/13/24 17:46 Active
100 mg PO TID
Glucagon [GlucaGen] Med 08/18/24 11:30 Active
1 mg IM PRN PRN
Guaifenesin [Mucinex] Med 08/20/24 08:00 Active
1,200 mg PO Q12
Heparin 03346 Units/250 ml Med 08/17/24 07:30 Active
25,000 units in 250 ml IV PER PROTOCOL
Insulin Aspart Corrective Mod [Novolog Flexpen-Moderate Med 08/18/24 11:30 Active
Resistance]
See Protocol SC AC
Insulin Aspart Pen [Novolog Flexpen] Med 08/20/24 16:30 Active
10 units SC AC
Insulin Glargine Lantus [Lantus] 15 units Med 08/19/24 22:00 Active
Subcutaneous Insulin Syringe [Syringe-Insulin] 0 unit
SC HS
Levalbuterol Tartrate [Xopenex Hfa 45 Mcg Inhaler] Med 08/15/24 22:46 Active
2 puff INH R Q4HPRN PRN
Lidocaine [Lidocaine 4% Patch] Med 08/14/24 08:00 Active
1 patch TOPICAL DAILY
Magnesium Hydroxide [Milk of Magnesia] Med 08/13/24 17:46 Active
30 ml PO BIDPRN PRN
Magnesium Oxide Med 08/14/24 08:00 Hold
500 mg PO BID
Metoprolol Xl [Toprol Xl] Med 08/20/24 08:00 Active
12.5 mg PO BID
Multivitamin [Theragran] Med 08/16/24 08:00 Active
1 tablet PO DAILY
Nitroglycerin Ointment [Nitro-Bid] Med 08/14/24 00:00 Active
0.5 inch TOPICAL Q6
Ondansetron Injectable [Zofran] Med 08/13/24 17:46 Active
4 mg IV Q8HPRN PRN
Oxycodone [Roxicodone] Med 08/13/24 17:46 Active
2.5 mg PO Q4HPRN PRN
Oxycodone [Roxicodone] Med 08/13/24 17:46 Active
5 mg PO Q4HPRN PRN
Pantoprazole [Protonix] Med 08/20/24 08:00 Active
40 mg PO DAILY
Polyethylene Glycol Powder [Miralax] Med 08/14/24 08:00 Active
17 grams TUBE DAILY
Remove Patch [Remove Lidocaine Patch] Med 08/14/24 20:00 Active
1 patch REMOVE DAILY@2000
Tamsulosin [Flomax] Med 08/21/24 08:00 Active
0.4 mg PO DAILY
Warfarin [Coumadin] Med 08/22/24 18:00 Once
10 mg PO ONCE@1800 ONE
Vitals:�
Temp Pulse Resp BP Pulse Ox
97.7 F 60 18 105/65 99
08/22/24 03:00 08/22/24 07:52 08/22/24 07:53 08/22/24 07:52 08/22/24 08:03
Height 5 ft 10.5 in
Actual Weight 97 kg
Body Mass Index (BMI) 30.3
�
Physical Exam:�
General Appearance/Observation: Well-developed, well-nourished individual in no apparent distress.�
Pain/Comfort Assessment: Exertional chest pressure
Mood/Affect: Appropriate, cheerful
�
Integumentary/Operative Site:�sternum with aquacel, right lower extremity incisions open to air,
�� Pressure Ulcer Evaluation: wearing heel pads
��
�� Other Type of Wound: bruises RLE , incisions
��
Eyes: Conjunctiva/Lids: normal���� Pupils: pupils equal round and reactive to light and Accommodation�
Ears/Nose/Throat: oral mucosa moist,� throat clear.������������ Lips/Teeth/Gums: normal�
Neck: No muscle spasm or tenderness�
Cardiovascular: Heart: regular, no murmur�
Pulses: dorsalis pedis 2+ bilaterally�
Respiratory: Respiratory Effort/Chest Expansion: normal������� Auscultation: decreased BS, clear to auscultation bilaterally�
Gastrointestinal: abdomen not tender, no distension, normal abdominal bowel sounds
Genitourinary: No Becerra�
Extremities:�Edema: bilateral feet 1+�Cyanosis: None�Trophic�changes: None
�
Neurology Exam:
Orientation: Alert, Oriented to self, Time, Place�
Memory: Intact for immediate medical concerns
Comprehension: Intact
Two step command: Intact
Naming: Intact
Cranial Nerves:
�� CNII:�Pupillary light reflex: Intact����Visual Field: Intact
�� CN III, IV, : Extraocular muscles: Intact�
�� CN V:�Facial Sensation�at�Forehead: Intact,�Maxilla: Intact,�Mandible: Intact
�� CN VII:�Facial movement: Symmetric
�� CN VIII:�Hearing: Normal
�� CN IX/X:�Speech & swallow: Normal,�Position of Uvula: Midline
�� CN XI:�Shoulder shrug: Symmetric
�� CN XII:�Tongue protrusion: Midline
Sensory:
�� Light touch: Intact in bilateral upper and lower extremities
��
�
Reflexes:
�� Biceps: 1/4 bilaterally
�� Brachioradialis: 1/4 bilaterally
�� Triceps: 1/4 bilaterally
�� Patellar: 2+ bilaterally
�� Achilles: absent bilaterally
�� Babinski: Down going bilaterally
�� Clonus: None
�� Fernanda: Negative bilaterally�
Cerebellar: Dysmetria/Ataxia: None�
Musculoskeletal:
Motor: (Manual muscle scale 0-5)�
Muscle SA EF WE EE FF FA HF KE DF EHL PF
Right� 2 2 5 2 5 2 2 5 5 5
Left 2 2 5 2 5 5 5 5 5 5
*2 pain and precaution
Tone: Normal in all extremities�
Range of Motion: Passively within normal limits in all extremities. deferred UE and LEs post surgery
�
Lab Results
Labs
WBC 16.5 10^3/uL (4.8-10.8) H 08/22/24 03:00
RBC 2.75 10^6/uL (4.70-6.10) L 08/22/24 03:00
Hgb 8.0 g/dL (13.0-18.0) L 08/22/24 03:00
Hct 23.9 % (39.0-52.0) L 08/22/24 03:00
MCV 86.9 fL (80.0-94.0) 08/22/24 03:00
MCH 29.1 pg (27.0-31.0) 08/22/24 03:00
MCHC 33.5 g/dL (33.0-37.0) 08/22/24 03:00
RDW 18.8 % (11.5-14.5) H 08/22/24 03:00
Plt Count 236 10^3/uL (130-400) 08/22/24 03:00
MPV 11.8 fL (7.4-10.4) H 08/22/24 03:00
Abs Immat Gran (auto) 0.0 10^3/uL (0-0.05) 08/13/24 09:36
Absolute Neuts (auto) 6.4 10^3/uL (1.4-6.5) 08/13/24 09:36
Absolute Lymphs (auto) 2.2 10^3/uL (1.2-3.4) 08/13/24 09:36
Absolute Monos (auto) 0.7 10^3/uL (0.1-0.6) H 08/13/24 09:36
Absolute Eos (auto) 0.2 10^3/uL (0-0.7) 08/13/24 09:36
Absolute Basos (auto) 0.0 10^3/uL (0-0.2) 08/13/24 09:36
CBC Comment Cancelled 08/16/24 09:09
Immature Gran % 0.2 % (0-0.5) 08/13/24 09:36
Neutrophils % 67.4 % (42.2-75.2) 08/13/24 09:36
Lymphocytes % 22.7 % (20.5-51.1) 08/13/24 09:36
Monocytes % 7.4 % (1.7-9.3) 08/13/24 09:36
Eosinophils % 1.9 % (0-6) 08/13/24 09:36
Basophils % 0.4 % (0-2) 08/13/24 09:36
Nucleated RBC % 0 % (-) 08/13/24 09:36
PT 20.9 Sec (11.4-14.6) H 08/22/24 03:00
INR 1.74 08/22/24 03:00
APTT 133.6 Sec (23.4-35.0) H 08/22/24 06:07
Fibrinogen 250 MG/DL (199-459) 08/13/24 21:14
pH 7.45 (7.35-7.45) 08/18/24 13:52
pCO2 38 mmHg (35-48) 08/18/24 13:52
pO2 75 mmHg (83-108) L 08/18/24 13:52
HCO3 26.4 mmol/L (21-28) 08/18/24 13:52
Base Excess 2.3 mmol/L 08/18/24 13:52
ABG O2 Sat (Measured) 96.8 % (94-98) 08/18/24 13:52
POC ABG O2 Sat (Calc) 96.7 % (94-98) 08/15/24 09:40
Mixed VBG O2 Saturation 56.5 % 08/20/24 03:24
Sodium 139 mMOL/L (136-145) 08/18/24 13:52
Potassium 3.6 mMOL/L (3.5-5.1) 08/18/24 13:52
O2 Delivery Level 08/18/24 13:52
Sodium 133 mmol/L (135-145) L 08/22/24 03:00
Potassium 3.4 mmol/L (3.5-5.1) L 08/22/24 03:00
Chloride 98 mmol/L (98-107) 08/22/24 03:00
Carbon Dioxide 29 mmol/L (22-30) 08/22/24 03:00
BUN 55 mg/dl (9-20) H 08/22/24 03:00
Creatinine 1.3 mg/dL (0.7-1.3) 08/22/24 03:00
Estimated Creat Clear 60 ml/min 08/22/24 03:00
eGFR 58.01 08/22/24 03:00
Glucose 127 mg/dl (70-99) H 08/22/24 03:00
Hemoglobin A1c 6.5 % (4.0-5.6) H 08/13/24 09:36
Hemoglobin A1c Cancelled 08/13/24 09:36
Lactic Acid 1.0 mmol/L (0.7-2.0) 08/20/24 03:24
Calcium 7.6 mg/dl (8.4-10.2) L 08/22/24 03:00
Ionized Calcium 1.07 mMOL/L (1.15-1.33) L 08/20/24 03:24
Magnesium 2.2 mg/dl (1.6-2.3) 08/22/24 03:00
Total Bilirubin 2.9 mg/dl (0.2-1.3) H 08/22/24 03:00
Direct Bilirubin 1.0 mg/dl (0.0-0.4) H 08/22/24 03:00
AST 78 U/L (17-59) H 08/22/24 03:00
ALT 117 U/L (0-50) H 08/22/24 03:00
Alkaline Phosphatase 370 U/L (38-126) H 08/22/24 03:00
Total Protein 5.1 g/dl (6.3-8.2) L 08/22/24 03:00
Albumin 2.8 g/dl (3.5-5.0) L 08/22/24 03:00
Prealbumin 10.3 mg/dl (17.6-36.0) L 08/18/24 04:19
Triglycerides 49 mg/dl (10-149) 08/13/24 18:21
Urine Color Yellow 08/13/24 10:06
Urine Clarity Slightly cloudy (Clear) 08/13/24 10:06
Urine pH 5.0 (5.0-9.0) 08/13/24 10:06
Ur Specific [place] 1.015 (<1.030) 08/13/24 10:06
Urine Ketones Negative (Negative) 08/13/24 10:06
Ur Occult Blood Reflex 4+ (Negative) A 08/13/24 10:06
Urine Nitrite (Reflex) Negative (Negative) 08/13/24 10:06
Urine Bilirubin Negative (Negative) 08/13/24 10:06
Urine Urobilinogen Negative (Neg - 1+) 08/13/24 10:06
Leukocyte Esterase Rfl Negative (Negative) 08/13/24 10:06
Urine RBC 16-20 /HPF (0-2) A 08/13/24 10:06
Urine WBC (Reflex) 6-10 /HPF (0-5) 08/13/24 10:06
Ur Squamous Epith Cells 0-2 /LPF (Few) 08/13/24 10:06
Urine Bacteria (Reflex) Few (Negative) A 08/13/24 10:06
Urine Glucose 4+ (Negative) A 08/13/24 10:06
Urine Albumin (Reflex) 1+ (Neg - Trace) A 08/13/24 10:06
Specimen Type Arterial 08/15/24 09:40
POC ABG Comment Cpb 08/13/24 15:56
POC pH 7.35 (7.35-7.45) 08/15/24 09:40
POC Base Excess -3.8 mmol/L 08/15/24 09:40
POC pO2 92 mmHg (83-108) 08/15/24 09:40
POC pCO2 39 mmHg (35-48) 08/15/24 09:40
POC HCO3 21 mmol/L (21-28) 08/15/24 09:40
POC Glucose 184 mg/dl (70-99) H 08/22/24 07:23
POC Glucose 108 mg/dl (70-99) H 08/15/24 09:40
POC Sodium 144 mmol/L (136-145) 08/15/24 09:40
POC Potassium 4.6 mmol/L (3.5-5.1) 08/15/24 09:40
POC Ionized Calcium 1.17 mmol/L (1.15-1.33) 08/15/24 09:40
POC Lactate 0.32 mmol/L (0.36-0.75) L 08/13/24 10:40
POC ACT+ 170 Seconds (82-134) H 08/13/24 16:49
POC ACT Low Range 244 Seconds (116-155) H 08/13/24 18:17
POC Hemoglobin Calc 7.8 08/15/24 09:40
POC Hematocrit 23 % PCV (42-52) L 08/15/24 09:40
POC Hemodilution No 08/15/24 09:40
Blood Type B POS 08/21/24 14:37
Antibody Screen Negative (Negative) 08/21/24 14:37
Crossmatch IS Only See Detail 08/14/24 09:20
Crossmatch (Massive Bleed) See Detail 08/13/24 09:36
�
Diagnostic Results:�as per HPI�
chest x-ray 08/21/2024 -
Stable appearance. Right internal jugular vascular sheath in place. No pneumothorax. No congestive heart failure. The cardiomediastinal margins are stable. The lungs are clear.
chest xray 08/20- Stable postoperative changes with near complete resolution of right pleural effusion in the interval since the prior study
EKG - 08/17
ECTOPIC ATRIAL RHYTHM
POSSIBLE LATERAL INFARCT , AGE UNDETERMINED
ST ELEVATION, CONSIDER EARLY REPOLARIZATION, PERICARDITIS, OR INJURY
ABNORMAL ECG
WHEN COMPARED WITH ECG OF 16-AUG-2024 04:14,
VENT. RATE HAS DECREASED BY 34 BPM
Assessment: 74-year-old male with a history of CAD with PCI complicated by DE LOS SANTOS dissection underwent emergent pump assisted beating heart bypass with repair of RV injury by Dr. Delatorre 08/13/2024
�
Plan�
�PT/OT to increase independence with ADLs, improve balance, coordination, endurance, strength, mobility, community reintegration, decreased burden of care on others and family education.�
�
S/P CABG with extensive complex repairs: reestablishment of CPAP B x 2, lysis of extensive adhesion.: Sternal precautions.� Coumadin, statin, metoprolol XL 12.5 mg twice daily, Bumex 2 mg twice daily at 0800, 1600, Farxiga 10 mg daily l.� Monitor
incision, pain control.� Weaned off O2� pulse ox 9 3% on room air. Nitro 0.5�topical every 6
Mechanical AVR: On IV heparin, warfarin p.o.
HTN: Metoprolol XL,
HLD: Atorvastatin 40 mg every afternoon, Zetia 10 mg
Coronary artery disease�: Aspirin, statin, beta-ellie�
Atrial fibrillation with RVR:�New onset. Amiodarone 200 mg 3 times daily, Toprol XL 25 mg,�Plavix 75 daily, aspirin 81 daily�������������������������������������
CHF: EF %, beta ellie, monitor fluid status, Bumex
Abnormal LFTs: Improving. Avoid hepatotoxic meds (Tylenol, Amiodarone, Precedex)
DM II: Prior to admit was taking Jardiance 25 daily and Trulicity 4.5 weekly on Sunday. C6 0.5% . Accu-Cheks, insulin sliding scale, Lantus 15 units at bedtime, NovoLog 10 units AC.�
Dizziness: hx of vestibular vertigo
Bilateral lower extremity edema: Consider TEDS as able. Increased fluid will cause more force requirement to move lower extremities which requires more strength and increases fatigue.�
Leukocytosis: Postop�16.5-
Anemia: Postop blood loss in setting of preop coagulopathy (INR was 2.68 preop). s/p (13 pRBCs), transfused additional 2u PRBCs post. Hgb-8 -slowly trending down. Ferrous sulfate 325
Thrombocytopenia: Postop�(4 platelets), transfused additional 1 {5pk} plts post chest washout and closure. (With platelets less than 50,000 recommend keeping therapies to bedside. If platelets less than 20,000 will use further caution with activity
levels and hold therapy for platelets less than 10,000).�
JULI: bun 55, cr 1.3
Hyponatremia/hypokalemia: replete, monitor
Psych: Alprazolam 0.25 at bedtime as needed.� Monitor mood, adjust medications as needed.�
Skin: monitor for pressure sores/rashes/lesions.�
Pain: acetaminophen or oxycodone as needed. Gabapentin 100 mg 3 times daily, lidocaine patch, Flexeril 5 mg every 8 as needed
Bowel: PRN bisacodyl, On Senokot-S q 12, MiraLAX, milk of magnesia 30 mL twice daily as needed. Patient voices bowel incontinence with cough. Continue bowel regimen to empty colon. May want to add colace and swith Senokot-s to
Bladder/BPH: Time void, PVRs, PRN straight cath.�Flomax 0.4mg . Patient reports voiding on his own
GI Prophylaxis: Pantoprazole�40 mg daily
DVT Prophylaxis: Mechanical and currently on IV heparin
Pulmonary: Incentive spirometry�
Obesity: Continue to credit counselor patient about diet adjustments to control obesity. Body habitus and increased force to move body and extremities causes further difficulty with functional tasks.�
Safety: Continue to reinforce assistance with all transfers.�
Code Status:� Full code
Dispo�(date/plan/equipment needs): Home with family care.� Social history reviewed.�
�
Functional and Medical Goals:�Modified Independent with ADL�s, ambulation, transfers�
�
Discharge Destination:�Acute inpatient rehabilitation
�
Summary of recommendations: Patient with complex cardiac surgery post multiple transfusions and now with debility and ADL dysfunctions would benefit from acute inpatient rehabilitation once medically stable, cleared by cardiology and Hemoglobin
remains stable over the weekend. Hgb noted to be slowly trending down.
Debility/ambulatory dysfunction: Cont PT/OT
S/P CABG with extensive complex repairs: reestablishment of CPAP B x 2, lysis of extensive adhesion.: Sternal precautions.� Coumadin, statin, metoprolol XL 12.5 mg twice daily, Bumex 2 mg twice daily at 0800, 1600, Farxiga 10 mg daily l.� Monitor
incision, pain control.� Weaned off O2� pulse ox 9 3% on room air. Nitro 0.5�topical every 6
Mechanical AVR: On IV heparin, warfarin p.o.
GI Prophylaxis: Pantoprazole�40 mg daily
DVT Prophylaxis: Mechanical and currently on IV heparin and prn warfarin doses. Please comment on chemical prophylaxis post discharge and if bridging IV heparin to po Coumadin.
Pulmonary: Incentive spirometry�
Bladder/BPH: Time void, PVRs, PRN straight cath.�Flomax 0.4mg . Patient reports voiding on his own
Bowel: PRN bisacodyl,Senokot-S q 12, MiraLAX, milk of magnesia 30 mL bid prn. Patient voices bowel incontinence with cough. May add Colace and switch Senokot-s to Senokot 17 mg qd
�
Thank you for allowing me to care for your patient. Please contact me with any questions or concerns.

Documented by User: Chao Rehman MD 08/23/24 00:10
Consultation - Medical
-
Referring Provider:�Juan Ramon Tolentino
Chief Complaint:�Debility, CABG with extensive repair,
�
History of Present Illness:�74-year-old male with a history of (CAD, Hypertension, hyperlipidemia, diabetes, PAT�resolved with 80 pound weight loss, mechanical AVR, spinal stenosis, tremors, cataract, valve disease�mechanical AVR, CHF, history of
ND- 04/2024) underwent elective cardiac catheterization for exertional chest pain and abnormal stress test with successful PCI of 80% in-stent restenosis and successful PCI of 90% proximal stent edge restenosis complicated by DE LOS SANTOS dissection
underwent emergent pump assisted beating heart bypass with repair of RV injury by Dr. Delatorre 08/13/2024 with Ventilator dependent respiratory failure postoperatively, Leukocytosis, thrombocytopenia requiring multiple transfusion, cardiogenic shock,
atelectasis, hypovolemia with subsequent hypervolemia, pericarditis per EKG, pulmonary insufficiency, hyponatremia, JULI, VDRF anemia-normocytic. Status post mediastinal exploration and washout/chest closure on 08/15/2024 ,extubated 08/17/24. On
Supplemental oxygen as needed. Chest x-ray with right pleural effusion. And subsegmental atelectasis left base. Went into a-fib with RVR shortly after extubation on 08/17, converted after 5mg IV Lopressor and amiodarone bolus but had 3sec conversion
pause. No further a-fib/pause since. On heparin to Coumadin bridge for mechanical AVR/postop a-fib. Becerra removed Had urinary retention which required straight cath. Passed swallow evaluation and tolerating regular diet
�
Past Medical History:�Hypertension, hyperlipidemia, diabetes, PAT�resolved with 80 pound weight loss, mechanical AVR, spinal stenosis, tremors, cataract, valve disease�mechanical AVR, CHF, history of ND,
Procedure History:�CAD/CABG 2008/stent-LAD 2023, Mechanical AVR number 27 mm 2008, Left knee arthroscopy, cataract extraction
Family History:�Mother: at Age (58) and Cause of (CAD), Father: at Age (59) and Cause of (CAD)
�
Social History:�
Functional Level Premorbidly:�Independent with all activities�
Functional Level Currently:�Eating�set up, grooming�min assist, toileting, lower extremity self-care�dependent, toilet transfer�mod assist, bed mobility max assist, able to bear weight and take a few steps with a walker at mod assist of 2
�
Tobacco:�Denies�
Alcohol:�Denies�
Drug use:�Denies�
�
Lives with:�Spouse
24-hour assistance available:�Yes
Number of floors:�2
# steps to enter:�2
# steps to second floor: Full flight
Potential First floor set up:�Yes
Driving:�Yes, but predominantly drives due to patient with neuropathy in legs.
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
�
�
Allergies:�
Allergy/AdvReac Type Severity Reaction Status Date / Time
levofloxacin [From Levaquin] Allergy Unknown Verified 08/13/24 07:27
rosuvastatin calcium Allergy Unknown Verified 08/13/24 07:27
[From Crestor]
simvastatin [From Zocor] Allergy MYALGIAS/leg Verified 08/13/24 07:27
cramping
�
Review of Systems:�
Constitutional: (x) abNormal _fatigue
Eye: (x) Normal _
Ear/Nose/Throat: (x) Normal _
Respiratory: (x) AbNormal _ atelectasis
Cardiovascular: (x) abNormal _CABG, h/o ND
Gastrointestinal: (x) abNormal _constipation-small bowel movements, bowel incontinence with cough
Genitourinary: (x) abNormal _BPH
Musculoskeletal: (x) Normal _
Integumentary: (x) Normal _
Neurologic: (x) Normal _
Psychiatric: (x) Normal _
Endocrine: (x) abNormal _DM
Hematologic/Lymphatic: (x) abNormal _anemia postop
Allergic/Immunologic: (x) Normal _
�
Medications:�
Active Current Visit Medication List
Category Date Time Status
0.9% Sodium Chloride 500 ml [Nss] 500 ml Med 08/15/24 10:15 Active
IV CORDIS
Acetaminophen [Tylenol] Med 08/13/24 17:46 Active
1,000 mg PO TID@0600,1400,2200
Acetaminophen [Tylenol] Med 08/13/24 17:46 Active
650 mg PO Q4HPRN PRN
Alprazolam [Xanax] Med 08/22/24 02:39 Active
0.25 mg PO HS PRN
Amiodarone [Pacerone] Med 08/13/24 17:46 Active
200 mg PO TID
Ascorbic Acid [Vitamin C] Med 08/14/24 08:00 Active
500 mg PO DAILY
Aspirin Chewable [Low Strength Aspirin] Med 08/14/24 08:00 Active
81 mg PO DAILY
Atorvastatin [Lipitor] Med 08/13/24 18:00 Active
40 mg PO QPM
Bisacodyl [Dulcolax] Med 08/13/24 17:46 Active
10 mg RECTAL DAILYPRN PRN
Bumetanide [Bumex] Med 08/21/24 08:00 Active
2 mg PO BID@0800,1600
Clopidogrel Bisulfate [Plavix] Med 08/14/24 08:00 Active
75 mg PO DAILY
Cyclobenzaprine HCl [Flexeril] Med 08/13/24 17:46 Active
5 mg PO Q8HPRN PRN
Dapagliflozin [Farxiga] Med 08/18/24 09:00 Active
10 mg PO DAILY
Dextrose 50%-Water [Dextrose 50% Syringe] Med 08/18/24 11:30 Active
12.5 grams IV [id number] PRN
Docusate W/Senna [Senokot-S] Med 08/13/24 20:00 Active
1 tablet PO Q12
Ezetimibe [Zetia] Med 08/13/24 18:00 Active
10 mg PO QPM
Ferrous Sulfate [Feosol] Med 08/14/24 08:00 Active
325 mg PO DAILY
Flush (0.9% Sodium Chloride) [Flush (Nss)] Med 08/13/24 23:00 Active
See Dose Instructions IV PER PROTOCOL
Gabapentin [Neurontin] Med 08/13/24 17:46 Active
100 mg PO TID
Glucagon [GlucaGen] Med 08/18/24 11:30 Active
1 mg IM PRN PRN
Guaifenesin [Mucinex] Med 08/20/24 08:00 Active
1,200 mg PO Q12
Heparin 96936 Units/250 ml Med 08/17/24 07:30 Active
25,000 units in 250 ml IV PER PROTOCOL
Insulin Aspart Corrective Mod [Novolog Flexpen-Moderate Med 08/18/24 11:30 Active
Resistance]
See Protocol SC AC
Insulin Aspart Pen [Novolog Flexpen] Med 08/20/24 16:30 Active
10 units SC AC
Insulin Glargine Lantus [Lantus] 15 units Med 08/19/24 22:00 Active
Subcutaneous Insulin Syringe [Syringe-Insulin] 0 unit
SC HS
Levalbuterol Tartrate [Xopenex Hfa 45 Mcg Inhaler] Med 08/15/24 22:46 Active
2 puff INH R Q4HPRN PRN
Lidocaine [Lidocaine 4% Patch] Med 08/14/24 08:00 Active
1 patch TOPICAL DAILY
Magnesium Hydroxide [Milk of Magnesia] Med 08/13/24 17:46 Active
30 ml PO BIDPRN PRN
Magnesium Oxide Med 08/14/24 08:00 Hold
500 mg PO BID
Metoprolol Xl [Toprol Xl] Med 08/20/24 08:00 Active
12.5 mg PO BID
Multivitamin [Theragran] Med 08/16/24 08:00 Active
1 tablet PO DAILY
Nitroglycerin Ointment [Nitro-Bid] Med 08/14/24 00:00 Active
0.5 inch TOPICAL Q6
Ondansetron Injectable [Zofran] Med 08/13/24 17:46 Active
4 mg IV Q8HPRN PRN
Oxycodone [Roxicodone] Med 08/13/24 17:46 Active
2.5 mg PO Q4HPRN PRN
Oxycodone [Roxicodone] Med 08/13/24 17:46 Active
5 mg PO Q4HPRN PRN
Pantoprazole [Protonix] Med 08/20/24 08:00 Active
40 mg PO DAILY
Polyethylene Glycol Powder [Miralax] Med 08/14/24 08:00 Active
17 grams TUBE DAILY
Remove Patch [Remove Lidocaine Patch] Med 08/14/24 20:00 Active
1 patch REMOVE DAILY@2000
Tamsulosin [Flomax] Med 08/21/24 08:00 Active
0.4 mg PO DAILY
Warfarin [Coumadin] Med 08/22/24 18:00 Once
10 mg PO ONCE@1800 ONE
Vitals:�
Temp Pulse Resp BP Pulse Ox
97.7 F 60 18 105/65 99
08/22/24 03:00 08/22/24 07:52 08/22/24 07:53 08/22/24 07:52 08/22/24 08:03
Height 5 ft 10.5 in
Actual Weight 97 kg
Body Mass Index (BMI) 30.3
�
Physical Exam:�
General Appearance/Observation: Well-developed, well-nourished individual in no apparent distress.�
Pain/Comfort Assessment: Exertional chest pressure
Mood/Affect: Appropriate, cheerful
�
Integumentary/Operative Site:�sternum with aquacel, right lower extremity incisions open to air,
�� Pressure Ulcer Evaluation: wearing heel pads
���� Other Type of Wound: bruises RLE , incisions
��
Eyes: Conjunctiva/Lids: normal���� Pupils: pupils equal round and reactive to light and Accommodation�
Ears/Nose/Throat: oral mucosa moist,� throat clear.������������ Lips/Teeth/Gums: normal�
Neck: No muscle spasm or tenderness�
Cardiovascular: Heart: regular, no murmur�
Pulses: dorsalis pedis 2+ bilaterally�
Respiratory: Respiratory Effort/Chest Expansion: normal������� Auscultation: decreased BS, clear to auscultation bilaterally�
Gastrointestinal: abdomen not tender, no distension, normal abdominal bowel sounds
Genitourinary: No Becerra�
Extremities:�Edema: bilateral feet 1+�Cyanosis: None�Trophic�changes: None
�
Neurology Exam:
Orientation: Alert, Oriented to self, Time, Place�
Memory: Intact for immediate medical concerns
Comprehension: Intact
Two step command: Intact
Naming: Intact
Cranial Nerves:
�� CNII:�Pupillary light reflex: Intact����Visual Field: Intact
�� CN III, IV, : Extraocular muscles: Intact�
�� CN V:�Facial Sensation�at�Forehead: Intact,�Maxilla: Intact,�Mandible: Intact
�� CN VII:�Facial movement: Symmetric
�� CN VIII:�Hearing: Normal
�� CN IX/X:�Speech & swallow: Normal,�Position of Uvula: Midline
�� CN XI:�Shoulder shrug: Symmetric
�� CN XII:�Tongue protrusion: Midline
Sensory:
�� Light touch: Intact in bilateral upper and lower extremities
��
�
Reflexes:
�� Biceps: 2/4 bilaterally
�� Brachioradialis: 2/4 bilaterally
�� Triceps: 2/4 bilaterally
�� Patellar: 2+ bilaterally
�� Achilles: absent bilaterally
�� Babinski: Down going bilaterally
�� Clonus: None
�� Fernanda: Negative bilaterally�
Cerebellar: Dysmetria/Ataxia: None�
Musculoskeletal: Motor: (Manual muscle scale 0-5)�
Muscle SA EF WE EE FF FA HF KE DF EHL PF
Right� 2 >3 5 >3 5 2 2 5 5 5
Left 2 >3 5 >3 5 5 5 5 5 5
*2 pain and precaution
Tone: Normal in all extremities�
Range of Motion: Passively within normal limits in all extremities. deferred UE and LEs post surgery
�
Lab Results
Labs
WBC 16.5 10^3/uL (4.8-10.8) H 08/22/24 03:00
RBC 2.75 10^6/uL (4.70-6.10) L 08/22/24 03:00
Hgb 8.0 g/dL (13.0-18.0) L 08/22/24 03:00
Hct 23.9 % (39.0-52.0) L 08/22/24 03:00
MCV 86.9 fL (80.0-94.0) 08/22/24 03:00
MCH 29.1 pg (27.0-31.0) 08/22/24 03:00
MCHC 33.5 g/dL (33.0-37.0) 08/22/24 03:00
RDW 18.8 % (11.5-14.5) H 08/22/24 03:00
Plt Count 236 10^3/uL (130-400) 08/22/24 03:00
MPV 11.8 fL (7.4-10.4) H 08/22/24 03:00
Abs Immat Gran (auto) 0.0 10^3/uL (0-0.05) 08/13/24 09:36
Absolute Neuts (auto) 6.4 10^3/uL (1.4-6.5) 08/13/24 09:36
Absolute Lymphs (auto) 2.2 10^3/uL (1.2-3.4) 08/13/24 09:36
Absolute Monos (auto) 0.7 10^3/uL (0.1-0.6) H 08/13/24 09:36
Absolute Eos (auto) 0.2 10^3/uL (0-0.7) 08/13/24 09:36
Absolute Basos (auto) 0.0 10^3/uL (0-0.2) 08/13/24 09:36
CBC Comment Cancelled 08/16/24 09:09
Immature Gran % 0.2 % (0-0.5) 08/13/24 09:36
Neutrophils % 67.4 % (42.2-75.2) 08/13/24 09:36
Lymphocytes % 22.7 % (20.5-51.1) 08/13/24 09:36
Monocytes % 7.4 % (1.7-9.3) 08/13/24 09:36
Eosinophils % 1.9 % (0-6) 08/13/24 09:36
Basophils % 0.4 % (0-2) 08/13/24 09:36
Nucleated RBC % 0 % (-) 08/13/24 09:36
PT 20.9 Sec (11.4-14.6) H 08/22/24 03:00
INR 1.74 08/22/24 03:00
APTT 133.6 Sec (23.4-35.0) H 08/22/24 06:07
Fibrinogen 250 MG/DL (199-459) 08/13/24 21:14
pH 7.45 (7.35-7.45) 08/18/24 13:52
pCO2 38 mmHg (35-48) 08/18/24 13:52
pO2 75 mmHg (83-108) L 08/18/24 13:52
HCO3 26.4 mmol/L (21-28) 08/18/24 13:52
Base Excess 2.3 mmol/L 08/18/24 13:52
ABG O2 Sat (Measured) 96.8 % (94-98) 08/18/24 13:52
POC ABG O2 Sat (Calc) 96.7 % (94-98) 08/15/24 09:40
Mixed VBG O2 Saturation 56.5 % 08/20/24 03:24
Sodium 139 mMOL/L (136-145) 08/18/24 13:52
Potassium 3.6 mMOL/L (3.5-5.1) 08/18/24 13:52
O2 Delivery Level 08/18/24 13:52
Sodium 133 mmol/L (135-145) L 08/22/24 03:00
Potassium 3.4 mmol/L (3.5-5.1) L 08/22/24 03:00
Chloride 98 mmol/L (98-107) 08/22/24 03:00
Carbon Dioxide 29 mmol/L (22-30) 08/22/24 03:00
BUN 55 mg/dl (9-20) H 08/22/24 03:00
Creatinine 1.3 mg/dL (0.7-1.3) 08/22/24 03:00
Estimated Creat Clear 60 ml/min 08/22/24 03:00
eGFR 58.01 08/22/24 03:00
Glucose 127 mg/dl (70-99) H 08/22/24 03:00
Hemoglobin A1c 6.5 % (4.0-5.6) H 08/13/24 09:36
Hemoglobin A1c Cancelled 08/13/24 09:36
Lactic Acid 1.0 mmol/L (0.7-2.0) 08/20/24 03:24
Calcium 7.6 mg/dl (8.4-10.2) L 08/22/24 03:00
Ionized Calcium 1.07 mMOL/L (1.15-1.33) L 08/20/24 03:24
Magnesium 2.2 mg/dl (1.6-2.3) 08/22/24 03:00
Total Bilirubin 2.9 mg/dl (0.2-1.3) H 08/22/24 03:00
Direct Bilirubin 1.0 mg/dl (0.0-0.4) H 08/22/24 03:00
AST 78 U/L (17-59) H 08/22/24 03:00
ALT 117 U/L (0-50) H 08/22/24 03:00
Alkaline Phosphatase 370 U/L (38-126) H 08/22/24 03:00
Total Protein 5.1 g/dl (6.3-8.2) L 08/22/24 03:00
Albumin 2.8 g/dl (3.5-5.0) L 08/22/24 03:00
Prealbumin 10.3 mg/dl (17.6-36.0) L 08/18/24 04:19
Triglycerides 49 mg/dl (10-149) 08/13/24 18:21
Urine Color Yellow 08/13/24 10:06
Urine Clarity Slightly cloudy (Clear) 08/13/24 10:06
Urine pH 5.0 (5.0-9.0) 08/13/24 10:06
Ur Specific [place] 1.015 (<1.030) 08/13/24 10:06
Urine Ketones Negative (Negative) 08/13/24 10:06
Ur Occult Blood Reflex 4+ (Negative) A 08/13/24 10:06
Urine Nitrite (Reflex) Negative (Negative) 08/13/24 10:06
Urine Bilirubin Negative (Negative) 08/13/24 10:06
Urine Urobilinogen Negative (Neg - 1+) 08/13/24 10:06
Leukocyte Esterase Rfl Negative (Negative) 08/13/24 10:06
Urine RBC 16-20 /HPF (0-2) A 08/13/24 10:06
Urine WBC (Reflex) 6-10 /HPF (0-5) 08/13/24 10:06
Ur Squamous Epith Cells 0-2 /LPF (Few) 08/13/24 10:06
Urine Bacteria (Reflex) Few (Negative) A 08/13/24 10:06
Urine Glucose 4+ (Negative) A 08/13/24 10:06
Urine Albumin (Reflex) 1+ (Neg - Trace) A 08/13/24 10:06
Specimen Type Arterial 08/15/24 09:40
POC ABG Comment Cpb 08/13/24 15:56
POC pH 7.35 (7.35-7.45) 08/15/24 09:40
POC Base Excess -3.8 mmol/L 08/15/24 09:40
POC pO2 92 mmHg (83-108) 08/15/24 09:40
POC pCO2 39 mmHg (35-48) 08/15/24 09:40
POC HCO3 21 mmol/L (21-28) 08/15/24 09:40
POC Glucose 184 mg/dl (70-99) H 08/22/24 07:23
POC Glucose 108 mg/dl (70-99) H 08/15/24 09:40
POC Sodium 144 mmol/L (136-145) 08/15/24 09:40
POC Potassium 4.6 mmol/L (3.5-5.1) 08/15/24 09:40
POC Ionized Calcium 1.17 mmol/L (1.15-1.33) 08/15/24 09:40
POC Lactate 0.32 mmol/L (0.36-0.75) L 08/13/24 10:40
POC ACT+ 170 Seconds (82-134) H 08/13/24 16:49
POC ACT Low Range 244 Seconds (116-155) H 08/13/24 18:17
POC Hemoglobin Calc 7.8 08/15/24 09:40
POC Hematocrit 23 % PCV (42-52) L 08/15/24 09:40
POC Hemodilution No 08/15/24 09:40
Blood Type B POS 08/21/24 14:37
Antibody Screen Negative (Negative) 08/21/24 14:37
Crossmatch IS Only See Detail 08/14/24 09:20
Crossmatch (Massive Bleed) See Detail 08/13/24 09:36
�
Diagnostic Results:�as per HPI�
chest x-ray 08/21/2024 -
Stable appearance. Right internal jugular vascular sheath in place. No pneumothorax. No congestive heart failure. The cardiomediastinal margins are stable. The lungs are clear.
chest xray 08/20- Stable postoperative changes with near complete resolution of right pleural effusion in the interval since the prior study
EKG - 08/17
ECTOPIC ATRIAL RHYTHM
POSSIBLE LATERAL INFARCT , AGE UNDETERMINED
ST ELEVATION, CONSIDER EARLY REPOLARIZATION, PERICARDITIS, OR INJURY
ABNORMAL ECG
WHEN COMPARED WITH ECG OF 16-AUG-2024 04:14,
VENT. RATE HAS DECREASED BY 34 BPM
Assessment: 74-year-old male with a history of CAD with PCI complicated by DE LOS SANTOS dissection underwent emergent pump assisted beating heart bypass with repair of RV injury by Dr. Delatorre 08/13/2024
�
Plan�
�PT/OT to increase independence with ADLs, improve balance, coordination, endurance, strength, mobility, community reintegration, decreased burden of care on others and family education.�
�
S/P CABG with extensive complex repairs: reestablishment of CPAP B x 2, lysis of extensive adhesion.: Sternal precautions.� Coumadin, statin, metoprolol XL 12.5 mg twice daily, Bumex 2 mg twice daily at 0800, 1600, Farxiga 10 mg daily l.� Monitor
incision, pain control.� Weaned off O2� pulse ox 9 3% on room air. Nitro 0.5�topical every 6
Mechanical AVR: On IV heparin, warfarin p.o.
Right thigh hematoma: Patient has right leg wrapped. Pain control, monitor hemoglobin which has been downtrending.
HTN: Metoprolol XL,
HLD: Atorvastatin 40 mg every afternoon, Zetia 10 mg
Coronary artery disease�: Aspirin, statin, beta-ellie�
Atrial fibrillation with RVR:�New onset. Amiodarone 200 mg 3 times daily, Toprol XL 25 mg,�Plavix 75 daily, aspirin 81 daily�������������������������������������
CHF: EF 40�45%, beta ellie, monitor fluid status, Bumex
Abnormal LFTs: Improving. Avoid hepatotoxic meds (Tylenol, Amiodarone, Precedex)
DM II: Prior to admit was taking Jardiance 25 daily and Trulicity 4.5 weekly on Sunday. C6 0.5% . Accu-Cheks, insulin sliding scale, Lantus 15 units at bedtime, NovoLog 10 units AC.�
Dizziness: hx of vestibular vertigo
Bilateral lower extremity edema: Consider TEDS as able. Increased fluid will cause more force requirement to move lower extremities which requires more strength and increases fatigue.�
Leukocytosis: Postop�16.5-possibly postoperative with no current focal complaints
Anemia: Postop blood loss in setting of preop coagulopathy (INR was 2.68 preop). s/p (13 pRBCs), transfused additional 2u PRBCs post. Hgb-8 -slowly trending down. Ferrous sulfate 325
Thrombocytopenia: Postop�(4 platelets), transfused additional 1 {5pk} plts post chest washout and closure. (With platelets less than 50,000 recommend keeping therapies to bedside. If platelets less than 20,000 will use further caution with activity
levels and hold therapy for platelets less than 10,000).�
JULI: bun 55, cr 1.3
Hyponatremia/hypokalemia: replete, monitor
Psych: Alprazolam 0.25 at bedtime as needed.� Monitor mood, adjust medications as needed.�
Skin: monitor for pressure sores/rashes/lesions.�
Pain: acetaminophen or oxycodone as needed. Gabapentin 100 mg 3 times daily, lidocaine patch, Flexeril 5 mg every 8 as needed
Bowel: PRN bisacodyl, On Senokot-S q 12, MiraLAX, milk of magnesia 30 mL twice daily as needed. Patient voices bowel incontinence with cough. Continue bowel regimen to empty colon. May want to add colace and swith Senokot-s to
Bladder/BPH: Time void, PVRs, PRN straight cath.�Flomax 0.4mg . Patient reports voiding on his own
GI Prophylaxis: Pantoprazole�40 mg daily
DVT Prophylaxis: Mechanical and currently on IV heparin with transition to warfarin
Pulmonary: Incentive spirometry�
Obesity: Continue to credit counselor patient about diet adjustments to control obesity. Body habitus and increased force to move body and extremities causes further difficulty with functional tasks.�
Safety: Continue to reinforce assistance with all transfers.�
Code Status:� Full code
Dispo�(date/plan/equipment needs): Home with family care.� Social history reviewed.�
Functional and Medical Goals:�Modified Independent with ADL�s, ambulation, transfers�
Discharge Destination:�Acute inpatient rehabilitation
Attending Statement: Late entry
I saw and examined the patient 08/22/2024. Reviewed care plan with patient, therapy, nursing, and physician web marketing assistant. I agree with the above subjective and physical exam, and plan as documented by POP Oh with adjustments made as necessary. A
total of 50 minutes were spent with the patient preparing for the evaluation, obtaining history, performing examination and evaluation, counseling, data review, case management, care coordination, repair order clerk, and EMR documentation.
Summary of recommendations: Patient with complex cardiac surgery post multiple transfusions and now with debility and ADL dysfunctions would benefit from acute inpatient rehabilitation once medically stable, cleared by cardiology and Hemoglobin
remains stable over the weekend. Hgb noted to be slowly trending down.
Debility/ambulatory dysfunction: Cont PT/OT
S/P CABG with extensive complex repairs: reestablishment of CPAP B x 2, lysis of extensive adhesion.: Sternal precautions.� Coumadin, statin, metoprolol XL 12.5 mg twice daily, Bumex 2 mg twice daily at 0800, 1600, Farxiga 10 mg daily l.� Monitor
incision, pain control.� Weaned off O2� pulse ox 9 3% on room air. Nitro 0.5�topical every 6
Mechanical AVR: On IV heparin, warfarin p.o. transition
GI Prophylaxis: Pantoprazole�40 mg daily
DVT Prophylaxis: Mechanical and currently on IV heparin and prn warfarin doses. Please comment on chemical prophylaxis post discharge and if bridging IV heparin to po Coumadin.
Pulmonary: Incentive spirometry�
Bladder/BPH: Time void, PVRs, PRN straight cath.�Flomax 0.4mg . Patient reports voiding on his own
Bowel: PRN bisacodyl,Senokot-S q 12, MiraLAX, milk of magnesia 30 mL bid prn. Patient voices bowel incontinence with cough. May add Colace and switch Senokot-s to Senokot 17 mg qd
Right thigh hematoma: Patient has right leg wrapped. Pain control, monitor hemoglobin which has been downtrending.
�
Thank you for allowing me to care for your patient. Please contact me with any questions or concerns.
[2024-08-22] MEDS: TOPROL XL 12.5 MG PO ×2 (09:44→20:21)
[2024-08-22] MEDS: NSS IV (10:13)
--- NOTE | 2024-08-22 11:34 | PTCARENOTE ---
pt VSS, pt ambulated w/ PT/OT. voided on BSC, +BM. 2VCXR completed. pt placed back to bed, PAMELA kincaid dc'd as ordered.
[2024-08-22 12:26] LABS: Glucose - Point of Care 229 mg/dl (70-99)
[2024-08-22] MEDS: NOVOLOG FLEXPEN-MODERATE RESISTANCE 3 UNITS SC (12:27)
[2024-08-22 14:27] LABS: INR 1.83; PT 21.4 Sec (11.4-14.6)
--- NOTE | 2024-08-22 15:33 | PTCARENOTE ---
pt VSS. when placing patient on bedpan, RN noticed increased R upper thigh swelling and hematoma. PA brought to bedside, US groin completed. RLE RHONDA bandage placed by POP Escalera. R groin dressing removed, suture cut by PA. L groin dressing removed,
lenore intact, small hematoma, PA aware. pt incontinent of urine and BM, pericare performed. pt linens changed, Mepilex dressing changed. preventative foams applied to b/l elbows. RLE elevated on pillows, warm compress applied.
--- NOTE | 2024-08-22 15:43 | CM ---
Reviewed chart. Telephone call to [facility] [place] to check on status of referral. [facility] [place] can accept on Sunday08/25/24 if medically stable and approved by his insurance. Met with and Mrs. Benavidez to update them
regarding bed availability on Sunday if medically stable and approved by insurance. Prior to admission he resides with his spouse in a two story home with two steps to enter. He has a full flight of steps to get to bedroom/full bathroom. He has a
powder room on the first floor. Prior to admission he was independent with ambulation and adls. He would use single point cane when he went for a walk outside for balance. He has a prescription plan and uses [facility]. Medical work-up in
progress. The discharge plan is to go to [facility] [place] on Sunday if approved by insurance and medically stable.
--- NOTE | 2024-08-22 15:55 | W.PN.UPDATE ---
Update Note
Progress Note Update
Patient was evaluated by rehab medicine and physical therapy and deemed appropriate for a acute rehab discharge as destination. Coumadin dosed 10 mg tonight for INR of 1.7. Hemoglobin of 8 and WBC of 16 with hardened right thigh noted ultrasound
of right thigh (harvest site) revealed a hematoma. Leg was wrapped with RHONDA bandage for compressin and repeat INR checked with result of 1.8. Dr. Delatorre notified. No further intervention warranted.
[2024-08-22] MEDS: ROXICODONE 5 MG PO (16:47)
[2024-08-22 16:51] LABS: Glucose - Point of Care 135 mg/dl (70-99)
[2024-08-22] MEDS: NOVOLOG FLEXPEN-MODERATE RESISTANCE SC (16:51)
[2024-08-22] MEDS: ZETIA 10 MG PO (17:00)
[2024-08-22] MEDS: COUMADIN 10 MG PO (17:00)
[2024-08-22] MEDS: LIPITOR 40 MG PO (17:00)
[2024-08-22] MEDS: HEPARIN 25000 UNITS/250 ML IV (17:01)
--- NOTE | 2024-08-22 20:30 | PTCARENOTE ---
Patient received resting in bed watching television. Patient A+A+Ox3. No neurological deficits noted. Patient with no c/o headache, dizziness or lightheadedness. Room air. SpO2 97%. Occasional productive cough - Small amount of thick tannish,
brown to clear secretions. Mouth care provided. Sinus Rhythm. Heart rate 60's. No c/o chest pain, pressure or discomfort. Abdomen soft, round. Normoactive bowel sounds. No BM. No c/o nausea. No vomiting. Voiding carlos urine. Sternal
dressing intact. Ecchymotic region to right side of neck. Three chest tube sutures intact and open to air. Right groin puncture site. Right groin dressing. Right knee incision - Surgical adhesive. Right thigh with hematoma - Coban Nicholas Wrap
intact. Warm compress PRN. Left groin dressing intact. Right lower extremity edema. Weak, palpable Dorsalis pedis pulses. Bilateral elbow and heel protective foams intact. Protective foam intact to sacrum. Skin protectant ointment to buttock
and scrotal region. Reposition q 2hrs and per patient request. Assessment as documented.
[2024-08-22 22:17] LABS: Glucose - Point of Care 134 mg/dl (70-99)
[2024-08-22] MEDS: TYLENOL PO (22:22)
[2024-08-22] MEDS: LANTUS 0.15 UNITS SC (22:29)
[2024-08-23] VITALS (18 sets, daily range): BP systolic 98–131; BP diastolic 48–70; PULSE 61; BMI 30.6
--- NOTE | 2024-08-23 | PTCARENOTE ---
Patient sleeping without difficulty. Assessment/Interventions as documented.
[2024-08-23] MEDS: NITRO-BID 0.5 INCH TOPICAL ×2 (00:26→06:17)
--- NOTE | 2024-08-23 01:00 | PTCARENOTE ---
Patient rang call xiao to be repositioned. Patient given CHG bath and linens changed. Left groin - Lincoln intact - Dressing off - Area slightly swollen and ecchymotic - PA for CT Surgery, Rehana Hamomnd PA-C, assessed area. Warm compress to
right thigh. Patient back to sleep. Assessment/Interventions as documented.
[2024-08-23] MEDS: MELATONIN 5 MG PO (02:01)
--- NOTE | 2024-08-23 02:30 | PTCARENOTE ---
Patient rang call xiao. c/o feeling anxious and unable to sleep. PA for CT Surgery made aware - Melatonin 5mg PO ordered and given. Patient repositioned. Resting in bed. Assessment/Interventions as documented.
--- NOTE | 2024-08-23 04:30 | PTCARENOTE ---
Patient dozing intermittently. Patient with c/o SOB. Room air - SpO2 94%. Placed on 2L O2 via NC for patient comfort - SpO2 99%. Patient A+A+Ox3. No neurological deficits noted. AM lab work collected and sent. Patient repositioned. Smear to
small soft brown stool - Heme tested - Heme Negative. Skin protectant ointment to buttocks. Assessment/Interventions as documented.
[2024-08-23 04:32] LABS: Hematocrit 24.4 % (39.0-52.0); Mean Corp Hgb Conc. 32.8 g/dL (33.0-37.0); Mean Corpuscular Hgb 28.7 pg (27.0-31.0); Mean Corpuscular Volume 87.5 fL (80.0-94.0); Mean Platelet Volume 11.1 fL (7.4-10.4); Platelet Count 260 10^3/uL (130-400); Red Blood Cell Count 2.79 10^6/uL (4.70-6.10); Red Cell Dist. Width 19.2 % (11.5-14.5); White Blood Cell Count 18.6 10^3/uL (4.8-10.8)
[2024-08-23 04:43] LABS: INR 2.03; PT 23.1 Sec (11.4-14.6)
[2024-08-23 04:45] LABS: APTT 100.7 Sec (23.4-35.0)
[2024-08-23] MEDS: TYLENOL PO ×3 (05:07→22:13)
[2024-08-23 05:27] LABS: ALT (SGPT) 122 U/L (0-50); AST (SGOT) 75 U/L (17-59); Albumin 2.9 g/dl (3.5-5.0); Alkaline Phosphatase 375 U/L (38-126); Blood Urea Nitrogen 53 mg/dl (9-20); Carbon Dioxide 28 mmol/L (22-30); Chloride 99 mmol/L (98-107); Estimated Creatinine Clearance 60 ml/min; Glucose 137 mg/dl (70-99); Magnesium 2.2 mg/dl (1.6-2.3); Potassium 3.4 mmol/L (3.5-5.1); Sodium 134 mmol/L (135-145); Total Bilirubin 2.7 mg/dl (0.2-1.3); Total Protein 5.4 g/dl (6.3-8.2); eGFR 58.01
--- NOTE | 2024-08-23 06:01 | W.PN.CT ---
Addendum entered and electronically signed by Patrice Delatorre MD 08/23/24 09:22:
I saw and examined the patient.
The PA's note was reviewed and I agree with the note.
Comment:
Doing well
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
Remains afebrile w/ slightly worsening leukocytosis (WBC 18.6) - herrera culture - start empiric abx
Continue conservative mgmt of R thigh hematoma - no overt signs of infection
OOB/IS/ambulate
Rehab in future
Original Note:
Today's Communication / Plan
-
-pod #10
-feels anxious despite getting Xanax at night
-INR 2.03 this am. Got 10 mg Coumadin on 08/22. Will d/c Heparin and continue Coumadin for mechan. AVR
-wbc 18.6, afebrile-Tm 98.3
-stool was checked and was heme negative
-R thigh hematoma was boris-wrapped 08/22. Continue warm compresses
-Hg low, but stable - 8.0 today (8.0 on 08/22, 8.2 on 08/21)
-s/p 2vCXR 08/22- stable, no acute findings, small L pleur effusion
-appreciate rehab and physical therapy eval
-continue PT/OT
-possible d/c to rehab soon
Assessment / Plan
-
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
distal control on 08/13/[address] Delatorre, pod #[id number]
-S/p Mediastinal exploration & washout/ Chest closure, by Dr. Delatorre, 08/15/24, pod#8
- Admitted on 08/13/24 for elective cath for exertional CP and abnormal stress test
- Cath 08/13/24 with successful PCI of 80% in-stent restenosis including the distal margin of the stent leading into the [place] vessel
and successful PCI of the 90% proximal stent edge restenosis, complicated by DE LOS SANTOS dissection.
- hx mechanical AVR /CABG [place] [address] Pal
- NSTEMI with 80% stenosis of LAD at DE [place] SANTOS anastomosis requiring LAD stent in 04/18/24- last Plavix dose was 08/11/24
- EF 45-50% by TTE 04/2024
- Chronic diastolic CHF
- HTN/HLD
- DM II ( on Trulicity and Jardiance)
- Coumadin anticoagulation for mechanical AVR - last dose 08/10/24
- Spinal stenosis L4-L5
- L knee arthroscopy 2012
- Cataract extraction
- Acute postop blood loss anemia in setting of preop coagulopathy (INR was 2.68 preop)- s/p multiple transfusions (13 pRBCs), transfused additional 2u PRBCs post
chest washout and closure
- Acute postop coagulopathy (4 FFPs, 1 cryo, Protamine)
- Acute postop thrombocytopenia (4 platelets), transfused additional 1 {5pk} plts post chest washout and closure
- Acute cardiogenic shock
- Acute postop atelectasis
- Acute postop hypovolemia with subsequent hypervolemia
- Acute postop pericarditis per ekg
- Acute postop pulmonary insufficiency
- Acute postop pleural effusion
- Acute postop hyponatremia
- Acute postop JULI
- Postop VDRF
- Acute postop afib with RVR
Discussed patient care with: Nursing and Care Team
Subjective
-
Date of Service: August 23, 2024
Objective Data
-
Lab Results
02/22/25 04:17
08/23/24 04:17
PT 23.1 Sec (11.4-14.6) H 08/23/24 04:17
INR 2.03 08/23/24 04:17
APTT 100.7 Sec (23.4-35.0) H 08/23/24 04:17
Vital Signs
Vital Signs
Temp Pulse Resp BP Pulse Ox
97.7 F 57 16 106/56 99
08/23/24 03:45 08/23/24 04:30 08/23/24 03:45 08/23/24 03:45 08/23/24 03:45
CT Intake/Output/Weight
08/22/24 08/22/24 08/23/24
06:59 18:59 06:59
Intake Total 184 / 319 160 / 521 361 / 521
Output Total 950 / 1760 1450 / 2550 1100 / 2550
Balance -766 / -1441 -1290 / -2029 -739 / -2028
SaO2: 99
Physical Exam
-
General: Awake and AOx3
Cardiovascular: Regular rate & rhythm, No Murmurs and No Rub
Respiratory: Decreased Breath Sounds
Sternum: Stable
Incision: Clean, Dry and Intact
Extremities: Edema +1
Data Reviewed
-
Lab Results: Results Reviewed
Medications: Active Meds Reviewed
Chest X-Ray: Report Reviewed and Image Reviewed
ECG: Report Reviewed and Image Reviewed
[2024-08-23] MEDS: KCL 40 MEQ PO (06:17)
[2024-08-23] MEDS: NSS IV (07:57)
[2024-08-23] MEDS: MIRALAX TUBE (07:57)
[2024-08-23] MEDS: LIDOCAINE 4% PATCH TOPICAL (07:57)
[2024-08-23] MEDS: SENOKOT-S PO ×2 (07:57→20:44)
--- NOTE | 2024-08-23 08:00 | PTCARENOTE ---
Assumed care of patient from shift lab technician RN. AAO x 3, depressed affect, encouragement provided. Sr on monitor. Room air 98% harsh moist cough with occasional sputum produced. Abdomen soft and non tender, Appetite fair. Voiding w/o issues. Rt
thigh ecchymotic , warm compress applied Nicholas wrap removed this am as per EXPORT AGENT. Pulses palpable. Trace anasarca appreciated. heparin infusing. Plan for day discussed.
[2024-08-23 08:11] LABS: Glucose - Point of Care 186 mg/dl (70-99)
[2024-08-23] MEDS: NOVOLOG FLEXPEN 10 UNITS SC ×2 (08:11→15:48)
[2024-08-23] MEDS: NOVOLOG FLEXPEN-MODERATE RESISTANCE 1 UNITS SC (08:12)
[2024-08-23] MEDS: PLAVIX 75 MG PO (08:51)
[2024-08-23] MEDS: THERAGRAN 1 TABLET PO (08:51)
[2024-08-23] MEDS: PACERONE 200 MG PO ×3 (08:51→23:00)
[2024-08-23] MEDS: VITAMIN C 500 MG PO (08:51)
[2024-08-23] MEDS: MUCINEX 1200 MG PO ×2 (08:51→20:49)
[2024-08-23] MEDS: FLOMAX 0.4 MG PO (08:52)
[2024-08-23] MEDS: TOPROL XL 12.5 MG PO ×2 (08:52→20:49)
[2024-08-23] MEDS: PROTONIX 40 MG PO (08:52)
[2024-08-23] MEDS: FEOSOL 325 MG PO (08:52)
[2024-08-23] MEDS: FARXIGA 10 MG PO (08:52)
[2024-08-23] MEDS: NEURONTIN 100 MG PO ×3 (08:52→23:00)
[2024-08-23] MEDS: BUMEX 2 MG PO ×2 (08:52→15:48)
[2024-08-23 11:36] LABS: Urine Albumin 1+ (Neg - Trace); Urine Bilirubin Negative (Negative); Urine Character Clear (Clear); Urine Color Yellow; Urine Glucose 4+ (Negative); Urine Ketone Negative (Negative); Urine Leukocyte Negative (Negative); Urine Nitrite Negative (Negative); Urine Occult Blood Negative (Negative); Urine Specific Gravity 1.015 (<1.030); Urine Urobilinogen Negative (Neg - 1+)
--- NOTE | 2024-08-23 11:38 | PHA.VAN.IN ---
Assessment
- Assessment
Renal Function: Appears elevated from baseline
Renal Function may be Overestimated due to: bmi=30.6
Concomitant Antimicrobials: zosyn
Plan
- Plan
Initial / Loading Dose: 2000mg
Maintenance Regimen: prn by level
Monitoring: random 08/24 in am
consider schedule dosing if BUN continues to decline
Pharmacokinetics Vancomycin I
- -
Patient Age: 74
Patient Sex: Male
Vancomycin Day #: 1
Indication: Skin And Soft Tissue
Requesting Provider: Lali Maier
Pertinent Antimicrobial Allergies:
levofloxacin=unknown
Height / Weight:
Height 5 ft 10.5 in
Actual Weight 98.1 kg
IBW in k.2
- Vital Signs / Lab Results
Temp Pulse Resp BP Pulse Ox
97.8 F 69 18 107/56 98
08/23/24 08:00 08/23/24 09:00 08/23/24 08:00 08/23/24 08:09 08/23/24 09:22
Lab Results - Hematology
08/21/24 08/22/24 08/23/24
03:21 03:00 04:17
WBC 16.2 H 16.5 H 18.6 H
Lab Results - Chemistry
08/21/24 08/22/24 08/23/24
03:21 03:00 04:17
BUN 63 H 55 H 53 H
Creatinine 1.3 1.3 1.3
Estimated Creat Clear 60 60 60
Albumin 2.9 L 2.8 L 2.9 L
[2024-08-23 11:58] LABS: Urine Bacteria Few (Negative); Urine Red Blood Cell 0-2 /HPF (0-2)
[2024-08-23] MEDS: ZOSYN 50 IV ×3 (12:10→23:46)
[2024-08-23] MEDS: NITRO-BID TOPICAL ×3 (12:10→23:43)
--- NOTE | 2024-08-23 12:28 | W.PN.CD ---
Today's Communication / Plan
-
Cont diuresis
Rehab Sunday
Impression / Plan
-
Impression/Plan: 74 y/o male with DM2, HTN, HLD, severe s/p mechanical SAVR and multivessel CAD s/p prior CABG (DE LOS SANTOS to LAD, sequential SVG to OM to RPDA) with prior PCI to the mid-LAD + LAD/DE LOS SANTOS anastamosis, admitted after PCI to ISR lesions
was complicated by DE LOS SANTOS dissection requiring emergent re-operation with SVG to LAD.
#CAD
-Cath showed an 80% ISR lesion in the LAD/DE LOS SANTOS stent as well as a 90% proximal stent edge lesion, patent sequential SVG.
-PCI performed on the 80% ISR lesion (Xience Skypoint 2.25 x 18 ELLIOTT, post dilated with a 2.75 NCB in the overlap) and the 90% proximal stent edge lesion (Xience Skypoint 3.0 x 26 ELLIOTT, post dilated with a 3.0 NCB) with reduction in stenoses to 0%.
-At the end of the procedure, the lesion could not be rewired after pulling back due to tension on the balloon. Repeat angiography showed spiral dissection of the DE LOS SANTOS graft, which could not be re-wired.
-PCI of the [place] LAD was attempted, but the lesion could not be wired.
-The patient was taken for emergent CABG.
#CABG/cardiogenic shock resolved
-Acute. EF post op 40-45%
-Repeat CABG (SVG to LAD), with Dr. Delatorre, 08/13/2024.
-CABG was complicated by RV laceration by a retained sternal wire with progressive RV disruption medial to the anastomosis, requiring extensive surgical repair and emergent ECMO cannulation.
-Chest was left open at the end of the surgery, back to OR 08/15/24 for mediastinal exploration , washout and closure
-Vascular surgery was called into the OR and performed primary repair of the peripheral cannulation site.
-Extubated 08/17/24.
-Tolerating metoprolol succinate 12.5 mg BID.
#AF with RVR:
-New onset.
-Resolved on amiodarone, tolerating additional metoprolol.
-INR now therapeutic
NSVT:
-Stable.
-Amiodarone.
Dizziness
-Two episodes yesterday.
#Mechanical AVR
-Chronic, stable.
-INR now therapeutic
#HTN
-Chronic, borderline hypotension.
-Tolerating metoprolol.
#HLD
-Chronic.
-Continue atorvastatin.
#DM2
-Chronic.
-Insulin gtt per protocol.
Critical Care Time = 37 minutes.
Subjective/Interval History:
Feeling improved plan for rehab Sunday
DATA:
Intraop HAILEY:
CONCLUSIONS
Mild Global hypokinesis with akinesis of the apical septal wall. LVEF is 40-
45% by visual inspection.
A well-seated and properly functioning mechanical aortic prosthesis is seen.
The mitral valve is heavily calcified without stenosis. Mild regurgitation is
seen.
Mild tricuspid regurgitation.
Grade III atheromatous disease of the arch and descending thoracic aorta.
Cardiac catheterization/PCI, 08/13/2024:
CONCLUSIONS
1. Right dominant circulation with chronic total occlusion of the RCA, diffusely diseased and calcified left main coronary artery, a chronically totally occluded circumflex and a diffusely diseased proximal LAD with a AUTOMOTIVE PRODUCT SPECIALIST of the mid LAD status post
prior bypass (DE LOS SANTOS to LAD, sequential SVG to OM to RPDA) with prior PCI of de darrick mid LAD disease in the mid LAD extending into the DE LOS SANTOS anastomosis, now with a 90% stent edge lesion, haziness at the distal stent edge and an 80% ISR lesion in the
distal third of the stent.
2. Status post successful PCI of the distal stent edge haziness and 80% ISR (Xience Skypoint 2.25 x 18 ELLIOTT, postdilated with a 2.75 NC balloon and the stent overlap section) with reduction in stenosis to 0%, maintaining REINALDO-3 flow.
3. Status post successful PCI of the 90% proximal stent edge lesion into the DE LOS SANTOS graft (Xience Skypoint 3.0 x 28 ELLIOTT, postdilated with a 3.0 NC balloon) with reduction in stenosis to 0%, subsequently complicated by spiral dissection of the DE LOS SANTOS
graft.
4. Unsuccessful rewiring of the dissected DE LOS SANTOS graft with propagation.
5. Unsuccessful wiring of the [place] LAD.
6. Given the compromise of the DE LOS SANTOS flow, inability to successfully rewire the DE LOS SANTOS and inability to open the [place] artery, CT surgery was called to bedside. The patient's films were reviewed and the situation assessed. After it was clear that
the [place] LAD circulation was not amenable to PCI, the decision was made to take the patient for emergent bypass.
Physical Exam
Vital Signs/Labs
Vital Signs
Temp Pulse Resp BP Pulse Ox
97.8 F 69 18 107/56 98
08/23/24 08:00 08/23/24 09:00 08/23/24 08:00 08/23/24 08:09 08/23/24 09:22
08/22/24 08/23/24 08/24/24
06:59 06:59 06:59
Actual Weight 213 lb 13.574 oz 216 lb 4.375 oz
08/23/24 04:17
08/23/24 04:17
PT 23.1 Sec (11.4-14.6) H 08/23/24 04:17
INR 2.03 08/23/24 04:17
APTT 100.7 Sec (23.4-35.0) H 08/23/24 04:17
Magnesium 2.2 mg/dl (1.6-2.3) 08/23/24 04:17
Triglycerides 49 mg/dl (10-149) 08/13/24 18:21
Physical Exam
Constitutional: No acute distress and Comfortable
EENT: Anicteric
Cardiovascular: Rhythm & rate is regular
Respiratory: Respiratory effort normal
GI: Soft
Neuro/Psych: AO x 3
Data Reviewed
-
Date of Service: August 23, 2024
EKG: Tracing Personally Visualized and interpreted (sr)
Echo: Report Reviewed by me
Labs: Labs Reviewed by me
--- NOTE | 2024-08-23 12:30 | PTCARENOTE ---
Assisted x 2 back to bed from chair. Blood cultures and urine specimen obtained. Pt states hes exhausted as he did not sleep last night. Awaiting unit PRBC's from Blood bank. VSS, emotional support provided. Resting in bed
[2024-08-23] MEDS: NOVOLOG FLEXPEN SC (13:58)
[2024-08-23] MEDS: NOVOLOG FLEXPEN-MODERATE RESISTANCE SC (13:59)
[2024-08-23] MEDS: VANCOCIN 540 MG IV (14:44)
--- NOTE | 2024-08-23 15:21 | PTCARENOTE ---
Pt incontinent of moderate amount of thick brown/green stool in bed. Complete CHG bath preformed and linens changed. Asssit x 2 oob to chair. Did better this afternoon with ambulating the 6 feet. VSS. Plan to ambulate this afternoon in room
with RN.
[2024-08-23] MEDS: NOVOLOG FLEXPEN-MODERATE RESISTANCE 3 UNITS SC (15:48)
[2024-08-23 15:49] LABS: Glucose - Point of Care 206 mg/dl (70-99)
[2024-08-23] MEDS: ZETIA 10 MG PO (17:25)
[2024-08-23] MEDS: COUMADIN 7.5 MG PO (17:25)
[2024-08-23] MEDS: LIPITOR 40 MG PO (17:25)
--- NOTE | 2024-08-23 21:00 | PTCARENOTE ---
Patient resting in bed watching television. Patient A+A+Ox3. No neurological deficits noted. Room air. SpO2 97%. Sinus Rhythm. Heart rate 60's. No c/o chest pain, pressure or discomfort. Normoactive bowel sounds. No BM. Positive flatus.
Voiding. Patient given CHG bath and linens changed. Sternal dressing intact. Three chest tube sutures open to air. Right groin puncture site intact. Right groin incision with dressing. Right thigh ecchymotic and swollen. Right knee incision -
Surgical adhesive intact - Open to air. Left groin incision with lenore - Open to air. Patient with protective foams to elbows and heels. Protective pad to sacrum. Skin protectant ointment to buttocks and scrotum. Reposition q 2hrs and PRN.
Patient with no c/o back or flank pain. Assessment as documented.
[2024-08-23 22:53] LABS: Glucose - Point of Care 284 mg/dl (70-99)
[2024-08-23] MEDS: XANAX 0.25 MG PO (23:00)
[2024-08-23] MEDS: LANTUS 0.15 UNITS SC (23:00)
--- NOTE | 2024-08-23 23:30 | PTCARENOTE ---
Patient sleeping intermittently. Rang call xiao due to an episode of urinary incontinence. Patient given CHG bath and linens changed. Assessment/Interventions as documented.
[2024-08-24] VITALS (11 sets, daily range): BP systolic 104–127; BP diastolic 51–64; BMI 29.7
--- NOTE | 2024-08-24 00:30 | PTCARENOTE ---
Patient with positive medium soft brown BM. Skin protectant ointment to buttocks. CHG bath and linens changed. Repositioned. Assessment/Interventions as documented.
[2024-08-24 04:22] LABS: INR 3.14; PT 32.1 Sec (11.4-14.6)
[2024-08-24 04:24] LABS: % Basophils 0.2 % (0-2); % Eosinophils 0.2 % (0-6); % Lymphocytes 4.8 % (20.5-51.1); % Monocytes 6.8 % (1.7-9.3); Absolute Immature Granulocytes 0.4 10^3/uL (0-0.05); Absolute Monocytes 1.4 10^3/uL (0.1-0.6); Hematocrit 28.8 % (39.0-52.0); Hemoglobin 9.5 g/dL (13.0-18.0); Mean Corpuscular Hgb 28.9 pg (27.0-31.0); Mean Corpuscular Volume 87.5 fL (80.0-94.0); Mean Platelet Volume 10.7 fL (7.4-10.4); Nucleated Red Blood Cells % 0.1 % (-); Platelet Count 323 10^3/uL (130-400); Red Blood Cell Count 3.29 10^6/uL (4.70-6.10); Red Cell Dist. Width 19.6 % (11.5-14.5)
--- NOTE | 2024-08-24 04:30 | PTCARENOTE ---
Patient A+A+Ox3. No neurological deficits noted. Patient resting in bed. No c/o pain or discomfort. AM lab work collected and sent. OOB in AM. Assessment/Interventions as documented.
[2024-08-24 04:33] LABS: ALT (SGPT) 126 U/L (0-50); AST (SGOT) 77 U/L (17-59); Albumin 2.9 g/dl (3.5-5.0); Alkaline Phosphatase 410 U/L (38-126); Blood Urea Nitrogen 45 mg/dl (9-20); Carbon Dioxide 28 mmol/L (22-30); Chloride 100 mmol/L (98-107); Direct Bilirubin 1.3 mg/dl (0.0-0.4); Estimated Creatinine Clearance 56 ml/min; Glucose 184 mg/dl (70-99); Magnesium 2.1 mg/dl (1.6-2.3); Phosphorus 4.2 mg/dl (2.5-4.5); Potassium 3.8 mmol/L (3.5-5.1); Sodium 136 mmol/L (135-145); Total Bilirubin 2.9 mg/dl (0.2-1.3); Total Protein 5.7 g/dl (6.3-8.2); eGFR 53.07
[2024-08-24 04:49] LABS: Vancomycin Random 12.5 ug/ml
[2024-08-24] MEDS: NITRO-BID TOPICAL ×3 (05:28→17:29)
[2024-08-24] MEDS: TYLENOL PO ×3 (05:29→22:14)
[2024-08-24] MEDS: ZOSYN 50 IV ×3 (05:34→17:29)
--- NOTE | 2024-08-24 06:17 | W.PN.CT ---
Today's Communication / Plan
-
-pod #11
-INR 3.14 this am. s/p 7.5 mg Coumadin on 08/23. heparin off
-wbc 18.6->21, afebrile-Tm 98.3, vanco/zosyn started 08/23
-R thigh hematoma was boris-wrapped 08/22. Continue warm compresses
-Hg low, but stable - 8.0 yesterday, s/p 1 U PRBC now up to 9.5 today
-appreciate rehab and physical therapy eval
-continue PT/OT
-possible d/c to rehab soon
-continue atorvastatin, zetia, iron, amio, plavix, still has nitro paste, Toprol xl 12.5 mg BID, bumex 2 mg BID
Assessment / Plan
-
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
required extensive complex repairs & necessitated re-establishment of CPB x 2; Lysis of extensive circumferential adhesions; repair of a minor injury to the innominate vein; Open exposure of L TRUCK FARMER (assisted by vascular surgery) w/ proximal and
distal control on 08/13/[address] Delatorre, pod #11
-S/p Mediastinal exploration & washout/ Chest closure, by Dr. Delatorre, 08/15/24, pod#9
- Admitted on 08/13/24 for elective cath for exertional CP and abnormal stress test
- Cath 08/13/24 with successful PCI of 80% in-stent restenosis including the distal margin of the stent leading into the hopi vessel
and successful PCI of the 90% proximal stent edge restenosis, complicated by DE LOS SANTOS dissection.
- hx mechanical AVR /CAB[place] [address] Pal
- NSTEMI with 80% stenosis of LAD at DE [place] SANTOS anastomosis requiring LAD stent in 04/18/24- last Plavix dose was 08/11/24
- EF 45-50% by TTE 04/2024
- Chronic diastolic CHF
- HTN/HLD
- DM II ( on Trulicity and Jardiance)
- Coumadin anticoagulation for mechanical AVR - last dose 08/10/24
- Spinal stenosis L4-L5
- L knee arthroscopy 2012
- Cataract extraction
- Acute postop blood loss anemia in setting of preop coagulopathy (INR was 2.68 preop)- s/p multiple transfusions (13 pRBCs), transfused additional 2u PRBCs post
chest washout and closure
- Acute postop coagulopathy (4 FFPs, 1 cryo, Protamine)
- Acute postop thrombocytopenia (4 platelets), transfused additional 1 {5pk} plts post chest washout and closure
- Acute cardiogenic shock
- Acute postop atelectasis
- Acute postop hypovolemia with subsequent hypervolemia
- Acute postop pericarditis per ekg
- Acute postop pulmonary insufficiency
- Acute postop pleural effusion
- Acute postop hyponatremia
- Acute postop JULI
- Postop VDRF
- Acute postop afib with RVR
Subjective
-
Date of Service: August 24, 2024
Objective Data
-
Lab Results
08/24/24 04:01
08/24/24 04:01
PT 32.1 Sec (11.4-14.6) H 08/24/24 04:01
INR 3.14 08/24/24 04:01
APTT 100.7 Sec (23.4-35.0) H 08/23/24 04:17
Vital Signs
Vital Signs
Temp Pulse Resp BP Pulse Ox
97.8 F 62 16 117/61 95
08/24/24 03:40 08/24/24 05:00 08/24/24 03:40 08/24/24 03:40 08/24/24 03:40
CT Intake/Output/Weight
08/23/24 08/23/24 08/24/24
06:59 18:59 06:59
Intake Total 372 / 532 1281 / 1571 290 / 1571
Output Total 1100 / 2550 1150 / 2250 1100 / 2250
Balance -728 / -2018 131 / -679 -810 / -679
SaO2: 95
Physical Exam
-
General: Awake, Oriented and AOx3
Cardiovascular: Regular rate & rhythm, No Rub and No Gallop
Respiratory: Clear and Decreased Breath Sounds
Sternum: Stable
Incision: Clean, Dry and Intact
Data Reviewed
-
Lab Results: Results Reviewed
Medications: Active Meds Reviewed
Chest X-Ray: Report Reviewed
CT Scan: Image Reviewed and Discussed w/ Radiology
ECG: Report Reviewed
[2024-08-24 07:58] LABS: Glucose - Point of Care 192 mg/dl (70-99)
--- NOTE | 2024-08-24 08:00 | PTCARENOTE ---
Patient received from RN at 0700. Patient lying in bed comfortable w/ call xiao in reach. Got patient OOB to chair. AOx3, NSR w/ first degree heart block BP 111/53 HR 61 POX 95% RA. Heart sounds audible. Radial and pedal pulses present
bilaterally. Lungs audible and diminished in bases bilaterally. Patient voiding clear yellow urine in urinal. bowel sounds normoactive. Loose scant BM. Patient incontinent of stool. Sternal incision dressing dry and intact. Left groin
incision dry and intact. Right groin puncture dressing dry and intact. Lower right groin puncture dry and intact open to air. Right leg incisions dry and intact. Right PIV patent and intact. Left PIV removed due to patient complaining of pain
while flushing.
--- NOTE | 2024-08-24 08:09 | PHA.VAN.FU ---
Vancomycin Assessment / Plan
- Assessment
Renal Function: SCR Increasing
WBC's are: Trending Up
In the past 24 hrs, patient has been: Afebrile
Concomitant Antimicrobials: ZOSYN
- Assessment - Therapeutic Drug Monitoring
Random Level: 12.5
- Dosing Plan
Dosing by Level: Re-dose today (1250MG)
- Monitoring Plan
Random Level: 08/25 IN AM
- Follow Up
Pharmacy will continue to follow.
Vancomycin Follow UP
- -
Patient Age: 74
Patient Sex: Male
Vancomycin Day #: 2
Indication: Skin And Soft Tissue
Requesting Provider: Lali Maier
Pertinent Antimicrobial Allergies:
levofloxacin=unknown
Height / Weight:
Height 5 ft 10.5 in
Actual Weight 98.1 kg
IBW in k.2
- Vital Signs / Lab Results
Temp Pulse Resp BP Pulse Ox
97.8 F 62 16 117/61 95
08/24/24 03:40 08/24/24 05:00 08/24/24 03:40 08/24/24 03:40 08/24/24 06:23
Lab Results - Hematology
08/22/24 08/23/24 08/24/24
03:00 04:17 04:01
WBC 16.5 H 18.6 H 21.0 H
Lab Results - Chemistry
08/22/24 08/23/24 08/24/24
03:00 04:17 04:01
BUN 55 H 53 H 45 H
Creatinine 1.3 1.3 1.4 H
Estimated Creat Clear 60 60 56
Albumin 2.8 L 2.9 L 2.9 L
Lab Results - Urine
08/23/24
11:17
Urine Nitrite (Reflex) Negative
Leukocyte Esterase Rfl Negative
Ur Squamous Epith Cells 3-5
Therapeutic Drug Monitoring
Random Vancomycin 12.5 ug/ml 08/24/24 04:01
[2024-08-24] MEDS: THERAGRAN 1 TABLET PO (08:16)
[2024-08-24] MEDS: BUMEX 2 MG PO ×2 (08:16→16:24)
[2024-08-24] MEDS: PROTONIX 40 MG PO (08:16)
[2024-08-24] MEDS: VITAMIN C 500 MG PO (08:17)
[2024-08-24] MEDS: PACERONE 200 MG PO (08:17)
[2024-08-24] MEDS: NEURONTIN 100 MG PO ×3 (08:17→22:32)
[2024-08-24] MEDS: PLAVIX 75 MG PO (08:17)
[2024-08-24] MEDS: FARXIGA 10 MG PO (08:17)
[2024-08-24] MEDS: TOPROL XL 12.5 MG PO (08:17)
[2024-08-24] MEDS: FEOSOL 325 MG PO (08:18)
[2024-08-24] MEDS: MUCINEX 1200 MG PO ×2 (08:21→20:40)
[2024-08-24] MEDS: FLOMAX 0.4 MG PO (08:21)
[2024-08-24] MEDS: NOVOLOG FLEXPEN-MODERATE RESISTANCE 1 UNITS SC ×2 (08:22→16:25)
[2024-08-24] MEDS: NOVOLOG FLEXPEN 10 UNITS SC ×3 (08:23→16:26)
[2024-08-24] MEDS: LIDOCAINE 4% PATCH TOPICAL (08:24)
[2024-08-24] MEDS: MIRALAX TUBE (08:24)
[2024-08-24] MEDS: SENOKOT-S PO ×2 (08:24→20:34)
[2024-08-24] MEDS: KCL 40 MEQ PO (08:59)
[2024-08-24] MEDS: VANCOCIN 275 MG IV (10:24)
--- NOTE | 2024-08-24 10:46 | W.PN.CD ---
Today's Communication / Plan
-
Likely rehab tomorrow
Impression / Plan
-
Impression/Plan: 74 y/o male with DM2, HTN, HLD, severe s/p mechanical SAVR and multivessel CAD s/p prior CABG (DE LOS SANTOS to LAD, sequential SVG to OM to RPDA) with prior PCI to the mid-LAD + LAD/DE LOS SANTOS anastamosis, admitted after PCI to ISR lesions
was complicated by DE LOS SANTOS dissection requiring emergent re-operation with SVG to LAD.
#CAD
-Cath showed an 80% ISR lesion in the LAD/DE [place] SANTOS stent as well as a 90% proximal stent edge lesion, patent sequential SVG.
-PCI performed on the 80% ISR lesion (Xience Skypoint 2.25 x 18 ELLIOTT, post dilated with a 2.75 NCB in the overlap) and the 90% proximal stent edge lesion (Xience Skypoint 3.0 x 26 ELLIOTT, post dilated with a 3.0 NCB) with reduction in stenoses to 0%.
-At the end of the procedure, the lesion could not be rewired after pulling back due to tension on the balloon. Repeat angiography showed spiral dissection of the DE LOS SANTOS graft, which could not be re-wired.
-PCI of the [place] LAD was attempted, but the lesion could not be wired.
-The patient was taken for emergent CABG.
#CABG/cardiogenic shock resolved
-Acute. EF post op 40-45%
-Repeat CABG (SVG to LAD), with Dr. Delatorre, 08/13/2024.
-CABG was complicated by RV laceration by a retained sternal wire with progressive RV disruption medial to the anastomosis, requiring extensive surgical repair and emergent ECMO cannulation.
-Chest was left open at the end of the surgery, back to OR 08/15/24 for mediastinal exploration , washout and closure
-Vascular surgery was called into the OR and performed primary repair of the peripheral cannulation site.
-Extubated 08/17/24.
-Tolerating metoprolol succinate 12.5 mg BID.
#AF with RVR:
-New onset.
-Resolved on amiodarone, tolerating additional metoprolol.
-INR now therapeutic
NSVT:
-Stable.
-Amiodarone.
Dizziness
-resolved
Elevated leukocytosis
- infectious workup ordered
#Mechanical AVR
-Chronic, stable.
-INR now therapeutic
#HTN
-Chronic, borderline hypotension.
-Tolerating metoprolol.
#HLD
-Chronic.
-Continue atorvastatin.
#DM2
-Chronic.
-Insulin gtt per protocol.
Critical Care Time = 37 minutes.
Subjective/Interval History:
Feeling improved plan for rehab Sunday
DATA:
Intraop HAILEY:
CONCLUSIONS
Mild Global hypokinesis with akinesis of the apical septal wall. LVEF is 40-
45% by visual inspection.
A well-seated and properly functioning mechanical aortic prosthesis is seen.
The mitral valve is heavily calcified without stenosis. Mild regurgitation is
seen.
Mild tricuspid regurgitation.
Grade III atheromatous disease of the arch and descending thoracic aorta.
Cardiac catheterization/PCI, 08/13/2024:
CONCLUSIONS
1. Right dominant circulation with chronic total occlusion of the RCA, diffusely diseased and calcified left main coronary artery, a chronically totally occluded circumflex and a diffusely diseased proximal LAD with a SILK PRESSER of the mid LAD status post
prior bypass (DE LOS SANTOS to LAD, sequential SVG to OM to RPDA) with prior PCI of de darrick mid LAD disease in the mid LAD extending into the DE [place] SANTOS anastomosis, now with a 90% stent edge lesion, haziness at the distal stent edge and an 80% ISR lesion in the
distal third of the stent.
2. Status post successful PCI of the distal stent edge haziness and 80% ISR (Xience Skypoint 2.25 x 18 ELLIOTT, postdilated with a 2.75 NC balloon and the stent overlap section) with reduction in stenosis to 0%, maintaining REINALDO-3 flow.
3. Status post successful PCI of the 90% proximal stent edge lesion into the DE LOS SANTOS graft (Xience Skypoint 3.0 x 28 ELLIOTT, postdilated with a 3.0 NC balloon) with reduction in stenosis to 0%, subsequently complicated by spiral dissection of the DE LOS SANTOS
graft.
4. Unsuccessful rewiring of the dissected DE LOS SANTOS graft with propagation.
5. Unsuccessful wiring of the [place] LAD.
6. Given the compromise of the DE LOS SANTOS flow, inability to successfully rewire the DE LOS SANTOS and inability to open the [place] artery, CT surgery was called to bedside. The patient's films were reviewed and the situation assessed. After it was clear that
the [place] LAD circulation was not amenable to PCI, the decision was made to take the patient for emergent bypass.
Physical Exam
Vital Signs/Labs
Vital Signs
Temp Pulse Resp BP Pulse Ox
98.1 F 67 16 111/53 95
08/24/24 08:00 08/24/24 08:30 08/24/24 08:00 08/24/24 08:17 08/24/24 10:04
08/23/24 08/24/24 08/25/24
06:59 06:59 06:59
Actual Weight 216 lb 4.375 oz 210 lb 1.608 oz
08/24/24 04:01
08/24/24 04:01
PT 32.1 Sec (11.4-14.6) H 08/24/24 04:01
INR 3.14 08/24/24 04:01
APTT 100.7 Sec (23.4-35.0) H 08/23/24 04:17
Magnesium 2.1 mg/dl (1.6-2.3) 08/24/24 04:01
Triglycerides 49 mg/dl (10-149) 08/13/24 18:21
Physical Exam
Constitutional: No acute distress and Comfortable
EENT: Anicteric
Cardiovascular: Rhythm & rate is regular and Pedal edema is absent
Respiratory: Respiratory effort normal
GI: Soft
Neuro/Psych: AO x 3
Data Reviewed
-
Date of Service: August 24, 2024
Medical Decision Making: Reviewed Test Results
EKG: Tracing Personally Visualized and interpreted (sr)
Labs: Labs Reviewed by me
[2024-08-24 12:20] LABS: Glucose - Point of Care 203 mg/dl (70-99)
[2024-08-24] MEDS: NOVOLOG FLEXPEN-MODERATE RESISTANCE 3 UNITS SC (12:23)
--- NOTE | 2024-08-24 12:30 | PTCARENOTE ---
Patient reassessed. No significant changes. Patient sitting OOB in chair w/ call xiao in reach. NSR w/ first degree heart block. BP 127/62 HR 65 POX 98% RA.
--- NOTE | 2024-08-24 14:32 | CON.GS ---
Consultation
-
Date/Time Consultation Requested: 08/24/2024, 11:28
Date/Time Consultation Performed: 08/24/2024, 15:45
Requesting Provider: Lali Fraga PA-C
Performing Provider: Ethan Ba MD
Reason for Consultation: sacral decubitis
Medical History
-
Chief Complaint: sacral decubitis
History of Present Illness:
74 year old male, with an extensive cardiac past medical history s/p mediastinal exploration and washout with chest closure on 08/15, with rectal pain over the past few days. He states he 'definitely' notices it. His WBC has been rising, 21.0 from
18.6. He has no other rectal complaints. He is having bowel movements. He denies nausea or vomiting. Given this wound finding, we have been consulted for further surgical recommendation.
Past Medical History
Past Medical History: Other (Hypertension, hyperlipidemia, diabetes, PAT-resolved with 80 pound weight loss, mechanical AVR, spinal stenosis, tremors, cataract, valve disease-mechanical AVR, CHF, history of AR)
Past Surgical History: Other (CAD/CABG 2008/stent-LAD 2023, Mechanical AVR number 27 mm 2008, Left knee arthroscopy, cataract extraction)
Social History
Tobacco: Non-Smoker
Alcohol: None
Drug: None
Living: With Family
Family History
Family History: Reviewed & Not Pertinent
Allergies / Home Medications
Allergy/AdvReac Type Severity Reaction Status Date / Time
levofloxacin [From Levaquin] Allergy Unknown Verified 08/13/24 07:27
rosuvastatin calcium Allergy Unknown Verified 08/13/24 07:27
[From Crestor]
simvastatin [From Zocor] Allergy MYALGIAS/leg Verified 08/13/24 07:27
cramping
�Medication �Instructions �Recorded �Confirmed �Type
warfarin 5 mg tablet (Jantoven) 10 mg PO .MOWETHFR@1800 Blood clot 11/08/09 08/13/24 History
prevention/tx
coenzyme [id number]-[id number] E 100 mg-5 1 ea PO HS Supplement 01/04/15 08/13/24 History
unit capsule (Co Q-10 (with Vit E))
cyanocobalamin (vitamin B-12) 1,000 mcg PO QPM Supplement 07/07/16 08/13/24 History
1,000 mcg tablet
acetaminophen 500 mg tablet 1,000 mg PO Q6HPRN PRN mild pain 08/26/18 08/13/24 History
(Tylenol Extra Strength)
cholecalciferol (vitamin D3) 25 1,000 units PO QPM Supplement 08/26/18 08/13/24 History
mcg (1,000 unit) tablet
atorvastatin 40 mg tablet 40 mg PO QPM High Cholesterol 04/18/24 08/13/24 History
dulaglutide 4.5 mg/0.5 mL 4.5 mg SC BAL Diabetes 04/18/24 08/13/24 History
subcutaneous pen injector
(Trulicity)
empagliflozin 25 mg tablet 25 mg PO QPM Diabetes 04/18/24 08/13/24 History
(Jardiance)
ezetimibe 10 mg tablet (Zetia) 10 mg PO QPM High Cholesterol 04/18/24 08/13/24 History
fluticasone propionate 50 2 spray intranasal BID Allergies 04/18/24 08/13/24 History
mcg/actuation nasal
spray,suspension
therapeutic multivitamin 1 tab PO DAILY Supplement 04/18/24 08/13/24 History
warfarin 5 mg tablet 10 mg PO .SUTUSAT@1800 Blood Clot 04/18/24 08/13/24 History
Prevention/Tx
clopidogrel 75 mg tablet 75 mg PO DAILY #30 tabs 04/22/24 08/13/24 Rx
lisinopril 2.5 mg tablet 2.5 mg PO DAILY #30 tabs 04/22/24 08/13/24 Rx
metoprolol succinate 25 mg 25 mg PO DAILY #30 tabs 04/22/24 08/13/24 Rx
tablet,extended release 24 hr
nitroglycerin 0.4 mg sublingual 0.4 mg sublingual Q5-15M PRN chest 08/13/24 08/13/24 History
tablet pain
Review of Systems
-
History Source: Patient
: Other (pain in the decubitis area)
A 10 point review of systems was completed, and was negative except as per HPI.
Physical Exam
Vital Signs
Temp Pulse Resp BP Pulse Ox
97.9 F 65 18 127/62 98
08/24/24 12:37 08/24/24 12:30 08/24/24 12:37 08/24/24 12:16 08/24/24 12:37
08/23/24 08/24/24 08/25/24
06:59 06:59 06:59
Actual Weight 98.1 kg 95.3 kg
Body Mass Index (BMI) 29.7
Lab Results
08/24/24 04:01
08/24/24 04:01
WBC 21.0 10^3/uL (4.8-10.8) H 08/24/24 04:01
Hgb 9.5 g/dL (13.0-18.0) L 08/24/24 04:01
Hct 28.8 % (39.0-52.0) L 08/24/24 04:01
Plt Count 323 10^3/uL (130-400) D 08/24/24 04:01
Abs Immat Gran (auto) 0.4 10^3/uL (0-0.05) H 08/24/24 04:01
Neutrophils % 86.0 % (42.2-75.2) H 08/24/24 04:01
Physical Exam
General: Well Developed, Well Nourished and No Apparent Distress
GI: Soft, Non Tender and Non Distended
Rectal: Other (decubitis ulcer, stage II)
Skin: Warm
Neuro: AO x 3
Assessment / Plan
-
Assessment: 74 year male with a recent mediastinal exploration and washout with rectal pain and a sacral decubitis wound, stage II
Plan:
-No plans for surgery
-Recommend Santyl to wound daily
-Wound RN for further wound care
-Will sign off, please consult with any questions
[2024-08-24 16:25] LABS: Glucose - Point of Care 164 mg/dl (70-99)
--- NOTE | 2024-08-24 17:02 | PTCARENOTE ---
Ambulating with steadier gait using rolling walker, cracking jokes with staff. Family states they feel like he is much more up beat at present. VSS. Continues to have multiple small/moderate soft formed BMs. Assessment otherwise unchanged from
prior.
[2024-08-24] MEDS: LIPITOR 40 MG PO (17:28)
[2024-08-24] MEDS: ZETIA 10 MG PO (17:29)
--- NOTE | 2024-08-24 17:40 | PTCARENOTE ---
Ambulated approx 25-30 feet in room with RN x 2 and rolling walker. Did very well, dyspneic after but recovered well.
[2024-08-24] MEDS: TOPROL XL PO (20:36)
--- NOTE | 2024-08-24 20:45 | PTCARENOTE ---
Patient received resting in bed watching television - Dozing intermittently. Patient A+A+Ox3. No neurological deficits noted. No c/o headache, dizziness or lightheadedness. Room air. SpO2 96%. Sinus Bradycardia to Sinus Rhythm. Heart rate
50-60's. Blood pressure 104/53 (69). Toprol XL 12.5 mg PO held. Normoactive bowel sounds. No BM. No c/o nausea. No vomiting. Voiding. Generalized edema. RLE > edema. Positive, palpable pulses. Sternal dressing intact. Three chest tube
sutures intact - Open to air. Right groin puncture site intact - Open to air. Right groin incisional site - Dressing intact. Right thigh edematous and ecchymotic. Left groin with lenore - Open to air. Protective foam dressings to bilateral
elbows and heels. Sacral dressing intact. Frequent repositioning. Assessment as documented.
[2024-08-24] MEDS: SANTYL OINTMENT 1 APPLIC TOPICAL (21:00)
[2024-08-24 22:25] LABS: Glucose - Point of Care 165 mg/dl (70-99)
[2024-08-24] MEDS: LANTUS 0.19 UNITS SC (22:32)
[2024-08-24] MEDS: XANAX 0.25 MG PO (22:32)
[2024-08-25] VITALS (9 sets, daily range): BP systolic 112–154; BP diastolic 50–70; PULSE 63; O2SAT 98–100; BMI 30.4
--- NOTE | 2024-08-25 | PTCARENOTE ---
Patient given CHG bath and linens changed. Santyl ointment applied to sacral wound and redressed. Patient now sleeping. Assessment/Interventions as documented.
[2024-08-25] MEDS: ZOSYN 50 IV ×4 (00:11→18:22)
--- NOTE | 2024-08-25 01:15 | PTCARENOTE ---
Patient reassessed. Patient resting comfortably in chair. NSR BP 134/70 HR 64 POX 97% RA. Worked with and tolerated PT. Wound care changed dressing on sacrum. No significant changes.
--- NOTE | 2024-08-25 02:30 | PTCARENOTE ---
Patient sleeping intermittently. Patient experiencing mild dizziness with repositioning in bed. No c/o pain or discomfort. No c/o nausea. Assessment/Interventions as documented.
[2024-08-25 04:17] LABS: INR 3.86; PT 37.6 Sec (11.4-14.6)
[2024-08-25 04:34] LABS: % Basophils 0.2 % (0-2); % Eosinophils 0.6 % (0-6); % Immature Granulocytes 1.9 % (0-0.5); % Lymphocytes 6.9 % (20.5-51.1); % Monocytes 6.4 % (1.7-9.3); Absolute Eosinophils 0.1 10^3/uL (0-0.7); Absolute Immature Granulocytes 0.4 10^3/uL (0-0.05); Absolute Lymphocytes 1.4 10^3/uL (1.2-3.4); Absolute Monocytes 1.3 10^3/uL (0.1-0.6); Absolute Neutrophils 17.2 10^3/uL (1.4-6.5); Hematocrit 27.1 % (39.0-52.0); Hemoglobin 8.6 g/dL (13.0-18.0); Mean Corp Hgb Conc. 31.7 g/dL (33.0-37.0); Mean Corpuscular Volume 91.2 fL (80.0-94.0); Mean Platelet Volume 10.5 fL (7.4-10.4); Nucleated Red Blood Cells % 0 % (-); Platelet Count 400 10^3/uL (130-400); Red Blood Cell Count 2.97 10^6/uL (4.70-6.10); Red Cell Dist. Width 20.4 % (11.5-14.5); White Blood Cell Count 20.5 10^3/uL (4.8-10.8)
[2024-08-25 04:58] LABS: ALT (SGPT) 113 U/L (0-50); AST (SGOT) 57 U/L (17-59); Albumin 3.1 g/dl (3.5-5.0); Alkaline Phosphatase 385 U/L (38-126); Blood Urea Nitrogen 38 mg/dl (9-20); Calcium 8.5 mg/dl (8.4-10.2); Carbon Dioxide 29 mmol/L (22-30); Chloride 98 mmol/L (98-107); Estimated Creatinine Clearance 49 ml/min; Glucose 137 mg/dl (70-99); Potassium 3.6 mmol/L (3.5-5.1); Sodium 134 mmol/L (135-145); eGFR 53.07
[2024-08-25 05:03] LABS: Vancomycin Random 12.6 ug/ml
[2024-08-25 05:29] LABS: Prealbumin (Transthyretin) 12.8 mg/dl (17.6-36.0)
--- NOTE | 2024-08-25 05:33 | W.PN.CT ---
Today's Communication / Plan
-
-INR 3.86 this am. s/p 7.5 mg Coumadin on 08/23 and held yesterday
-wbc 18.6->21-> 20.5 today, afebrile-Tm 95.5, vanco/zosyn started 08/23.
-Surgery consulted for stage III wound, recs for santyl no sharp debridement
-R thigh hematoma was boris-wrapped 08/22. Continue warm compresses
-Hg low, but stable - 8.0 Sunday s/p 1 U PRBC, now up to 9.5 then 8.6 today
-appreciate rehab and physical therapy Javid avalos?
-continue PT/OT
-possible d/c to rehab soon
-continue atorvastatin, zetia, iron, amio, plavix, still has nitro paste, Toprol xl 12.5 mg BID, bumex 2 mg BID
Assessment / Plan
-
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
required extensive complex repairs & necessitated re-establishment of CPB x 2; Lysis of extensive circumferential adhesions; repair of a minor injury to the innominate vein; Open exposure of L [employer] (assisted by vascular surgery) w/ proximal and
distal control on 08/13/[address] Delatorre, pod #12
-S/p Mediastinal exploration & washout/ Chest closure, by Dr. Delatorre, 08/15/24, pod#10
- Admitted on 08/13/24 for elective cath for exertional CP and abnormal stress test
- Cath 08/13/24 with successful PCI of 80% in-stent restenosis including the distal margin of the stent leading into the [employer]-[place]-[employer]-n[employer]she[place] band vessel
and successful PCI of the 90% proximal stent edge restenosis, complicated by DE LOS SANTOS dissection.
- hx mechanical AVR /CAB[place] [address] Pal
- NSTEMI with 80% stenosis of LAD at DE LOS SANTOS anastomosis requiring LAD stent in 04/18/24- last Plavix dose was 08/11/24
- EF 45-50% by TTE 04/2024
- Chronic diastolic CHF
- HTN/HLD
- DM II ( on Trulicity and Jardiance)
- Coumadin anticoagulation for mechanical AVR - last dose 08/10/24
- Spinal stenosis L4-L5
- L knee arthroscopy 2012
- Cataract extraction
- Acute postop blood loss anemia in setting of preop coagulopathy (INR was 2.68 preop)- s/p multiple transfusions (13 pRBCs), transfused additional 2u PRBCs post
chest washout and closure
- Acute postop coagulopathy (4 FFPs, 1 cryo, Protamine)
- Acute postop thrombocytopenia (4 platelets), transfused additional 1 {5pk} plts post chest washout and closure
- Acute cardiogenic shock
- Acute postop atelectasis
- Acute postop hypovolemia with subsequent hypervolemia
- Acute postop pericarditis per ekg
- Acute postop pulmonary insufficiency
- Acute postop pleural effusion
- Acute postop hyponatremia
- Acute postop JULI
- Postop VDRF
- Acute postop afib with RVR
Subjective
-
Date of Service: August 25, 2024
Objective Data
-
Lab Results
08/25/24 03:58
08/25/24 03:57
PT 37.6 Sec (11.4-14.6) H 08/25/24 03:57
INR 3.86 08/25/24 03:57
APTT 100.7 Sec (23.4-35.0) H 08/23/24 04:17
Vital Signs
Vital Signs
Temp Pulse Resp BP Pulse Ox
98.2 F 58 16 123/50 97
08/25/24 03:45 08/25/24 04:30 08/25/24 03:45 08/25/24 03:45 08/25/24 03:45
CT Intake/Output/Weight
08/24/24 08/24/24 08/25/24
06:59 18:59 06:59
Intake Total 290 / 1571 1090 / 1380 290 / 1380
Output Total 1100 / 2250 1100 / 2650 1550 / 2650
Balance -810 / -679 -10 / -1270 -1260 / -1270
SaO2: 97
Physical Exam
-
General: Awake and AOx3
Cardiovascular: Regular rate & rhythm, No Rub and No Gallop
Respiratory: Clear and Decreased Breath Sounds
Sternum: Stable
Incision: Clean, Dry and Intact
Extremities: Edema +1 and No Erythema
Data Reviewed
-
Lab Results: Results Reviewed
Medications: Active Meds Reviewed
Chest X-Ray: Report Reviewed
ECG: Report Reviewed
[2024-08-25] MEDS: NITRO-BID TOPICAL ×4 (06:23→18:36)
[2024-08-25] MEDS: TYLENOL PO (06:23)
[2024-08-25 07:55] LABS: Glucose - Point of Care 159 mg/dl (70-99)
[2024-08-25] MEDS: NOVOLOG FLEXPEN 10 UNITS SC ×3 (07:57→18:21)
[2024-08-25] MEDS: NOVOLOG FLEXPEN-MODERATE RESISTANCE 1 UNITS SC ×3 (07:58→18:20)
--- NOTE | 2024-08-25 08:00 | PTCARENOTE ---
Patient received from RN @ 0700. Patient sitting in chair comfortably w/ call xiao in reach. NSR BP 123/64 HR 61 POX 99% RA. AOx3. Heart sounds audible. Radial and pedal pulses present bilaterally. Generalized +1 edema. Lungs course and
diminished in bases bilaterally. Strong cough w/ little sputum production. IS 1750. Bowel sounds normoactive. Small BM noted. Voiding clear yellow urine in urinal. Sternal dressing dry and intact. Chest tube puncture sites dry and intact open
to air. Upper right groin puncture dressing dry and intact. Lower right groin puncture dry and intact open to air. Lower right groin site is tender and taught w/ ecchymosis surrounding. Left groin incision dry and intact with lenore open to
air. Right leg incisions dry and intact open to air w/ ecchymosis and tenderness. Right and Left forearm PIV patent and intact. Wound care following gluteal cleft wound.
--- NOTE | 2024-08-25 08:10 | PN.DE.MGMTRT ---
Insulin Management
- -
08/25/2024: Diabetes Management Follow up
74 year old male with PMH: CAD - CABG 2008 PCI 04/2024, [place], CHF, HTN, HCL, diabetes, PAT, valve disease - mechanical AVR.
Presented with Spiral dissection of KYLIE-to-LAD anastomosis w/ CP and intermittent BRENDA.
POD # 12 s/p Emergent Pump-assist beating heart bypass w/ GSV to LAD; Repair of RV injury; Significant progressive RV disruption just medial to the GSV-to-LAD anastomosis that required extensive complex repairs & necessitated re-establishment of CPB
x 2; Lysis of extensive circumferential adhesions; repair of a minor injury to the innominate vein. POD # 10 S/P Mediastinal exploration & washout/ Chest closure.
Prior to admission was taking Jardiance 25 mg daily and Trulicity 4.5 weekly on Sunday. A1C 6.5%, Cr 0.7-->1.8, eGFR 39.25 today.
Pt states he has a working glucose meter at home and checks his blood sugars daily- fasting.
Discussed use of insulin at this time both Lantus and NovoLog for glucose control.
Pt awake, alert, oriented, resting in bed, offers no complaints, able to discuss diabetes care. - Catrachita at bedside.
Glucose stable and in range, 08/24 premeal 164 to 203, FBG 137(V), 159 POC this AM.
Will make no changes to current regimen: Lantus 15 units @ hs with NovoLog 10 units AC with moderate corrective.
Discussed with Nurse. Will cont to follow.
08/20 Discussed importance of glucose control to avoid wound infection. He is in agreement. Will increase home glucose monitoring to HS and report to primary doctor after discharge. Patient states he is confident with self injections as he was
taking Trulicity before admission. Reviewed subtle differences between Trulicity pen preparation and insulin pen preparation; provided printed instructions for each step of pen prep and injection technique.
Diabetes History
- -
Type of Diabetes: 2 requiring insulin
Pre-Admission Diabetes Regimen
08/25/24
03:57
Creatinine 1.4 H
Lab Results
Hemoglobin A1c 6.5 % (4.0-5.6) H 08/13/24 09:36
Hemoglobin A1c Cancelled 08/13/24 09:36
Insulin Pump Settings
IP Diabetes Regimen
08/24/24 08/24/24 08/24/24
12:18 16:23 22:23
Glucose
POC Glucose 203 H 164 H 165 H
08/25/24 08/25/24
03:57 07:54
Glucose 137 H
POC Glucose 159 H
Meal type: Dinner
Meal type: Breakfast
Amount consumed: 100%
Amount consumed: 100%
Patient Education
[2024-08-25] MEDS: FARXIGA 10 MG PO (08:13)
[2024-08-25] MEDS: PROTONIX 40 MG PO (08:13)
[2024-08-25] MEDS: MUCINEX 1200 MG PO ×2 (08:13→19:25)
[2024-08-25] MEDS: NEURONTIN 100 MG PO ×3 (08:14→21:19)
[2024-08-25] MEDS: PLAVIX 75 MG PO (08:14)
[2024-08-25] MEDS: FEOSOL 325 MG PO (08:14)
[2024-08-25] MEDS: FLOMAX 0.4 MG PO (08:14)
[2024-08-25] MEDS: THERAGRAN 1 TABLET PO (08:14)
[2024-08-25] MEDS: VITAMIN C 500 MG PO (08:14)
[2024-08-25] MEDS: PACERONE 200 MG PO (08:15)
[2024-08-25] MEDS: BUMEX 2 MG PO ×2 (08:15→16:16)
[2024-08-25] MEDS: TOPROL XL 12.5 MG PO ×2 (08:16→19:26)
[2024-08-25] MEDS: KCL 40 MEQ PO (08:22)
[2024-08-25] MEDS: SENOKOT-S 1 TABLET PO ×2 (08:22→19:26)
--- NOTE | 2024-08-25 08:52 | PHA.VAN.FU ---
Vancomycin Assessment / Plan
- Assessment
Renal Function: Stable
WBC's are: Stable
In the past 24 hrs, patient has been: Afebrile
Concomitant Antimicrobials: piperacillin/tazobactam
- Assessment - Therapeutic Drug Monitoring
Random Level: 12.6 - drawn ~17.5H after previous dose of 1250mg
- Dosing Plan
Dosing by Level: Re-dose today (Vanc 1250mg)
Dosing Comments: level stable
- Monitoring Plan
Random Level: 08/26 06
- Follow Up
Pharmacy will continue to follow.
Vancomycin Follow UP
- -
Patient Age: 74
Patient Sex: Male
Vancomycin Day #: 3
Indication: Skin And Soft Tissue
Requesting Provider: Lali Maier
Pertinent Antimicrobial Allergies:
levofloxacin - unknown
Height / Weight:
Height 5 ft 10.5 in
Actual Weight 97.4 kg
IBW in k.2
Pertinent Past Medical History: BMI ~30, DM 2
- Vital Signs / Lab Results
Temp Pulse Resp BP Pulse Ox
97.4 F 61 17 123/64 99
08/25/24 08:00 08/25/24 08:15 08/25/24 08:00 08/25/24 08:16 08/25/24 08:00
Lab Results - Hematology
08/23/24 08/24/24 08/25/24
04:17 04:01 03:58
WBC 18.6 H 21.0 H 20.5 H
Lab Results - Chemistry
08/23/24 08/24/24 08/25/24
04:17 04:01 03:57
BUN 53 H 45 H 38 H
Creatinine 1.3 1.4 H 1.4 H
Estimated Creat Clear 60 56 49
Albumin 2.9 L 2.9 L 3.1 L
Microbiology Results
08/23/24 15:51 Gram Stain - Preliminary
Sputum
08/23/24 11:12 Blood Culture - Preliminary
Blood/Venous No Growth in 24 hours- Final report to follow
08/23/24 10:35 Blood Culture - Preliminary
Blood/Venous No Growth in 24 hours- Final report to follow
Therapeutic Drug Monitoring
Random Vancomycin 12.6 ug/ml 08/25/24 03:57
[2024-08-25] MEDS: LIDOCAINE 4% PATCH TOPICAL (08:55)
--- NOTE | 2024-08-25 09:31 | W.PN.CD ---
Today's Communication / Plan
-
Cont plan of care
OOB and ambulating as able
Impression / Plan
-
Impression/Plan: 74 y/o male with DM2, HTN, HLD, severe s/p mechanical SAVR and multivessel CAD s/p prior CABG (DE LOS SANTOS to LAD, sequential SVG to OM to RPDA) with prior PCI to the mid-LAD + LAD/DE LOS SANTOS anastamosis, admitted after PCI to ISR lesions
was complicated by DE LOS SANTOS dissection requiring emergent re-operation with SVG to LAD.
#CAD
-Cath showed an 80% ISR lesion in the LAD/DE LOS SANTOS stent as well as a 90% proximal stent edge lesion, patent sequential SVG.
-PCI performed on the 80% ISR lesion (Xience Skypoint 2.25 x 18 ELLIOTT, post dilated with a 2.75 NCB in the overlap) and the 90% proximal stent edge lesion (Xience Skypoint 3.0 x 26 ELLIOTT, post dilated with a 3.0 NCB) with reduction in stenoses to 0%.
-At the end of the procedure, the lesion could not be rewired after pulling back due to tension on the balloon. Repeat angiography showed spiral dissection of the DE LOS SANTOS graft, which could not be re-wired.
-PCI of the chemehuevi LAD was attempted, but the lesion could not be wired.
-The patient was taken for emergent CABG.
#CABG/cardiogenic shock resolved
-Acute. EF post op 40-45%
-Repeat CABG (SVG to LAD), with Dr. Delatorre, 08/13/2024.
-CABG was complicated by RV laceration by a retained sternal wire with progressive RV disruption medial to the anastomosis, requiring extensive surgical repair and emergent ECMO cannulation.
-Chest was left open at the end of the surgery, back to OR 08/15/24 for mediastinal exploration , washout and closure
-Vascular surgery was called into the OR and performed primary repair of the peripheral cannulation site.
-Extubated 08/17/24.
-Tolerating metoprolol succinate 12.5 mg BID.
#AF with RVR:
-New onset.
-Resolved on amiodarone, tolerating additional metoprolol.
-INR now therapeutic
NSVT:
-Stable.
-Amiodarone.
Dizziness
-resolved
Elevated leukocytosis
- infectious workup ordered
- sacral decubitus
#Mechanical AVR
-Chronic, stable.
-INR now therapeutic
#HTN
-Chronic, borderline hypotension.
-Tolerating metoprolol.
#HLD
-Chronic.
-Continue atorvastatin.
#DM2
-Chronic.
-Insulin gtt per protocol.
Critical Care Time = 37 minutes.
Subjective/Interval History:
Feeling improved hopeful for rehab soon
DATA:
Intraop HAILEY:
CONCLUSIONS
Mild Global hypokinesis with akinesis of the apical septal wall. LVEF is 40-
45% by visual inspection.
A well-seated and properly functioning mechanical aortic prosthesis is seen.
The mitral valve is heavily calcified without stenosis. Mild regurgitation is
seen.
Mild tricuspid regurgitation.
Grade III atheromatous disease of the arch and descending thoracic aorta.
Cardiac catheterization/PCI, 08/13/2024:
CONCLUSIONS
1. Right dominant circulation with chronic total occlusion of the RCA, diffusely diseased and calcified left main coronary artery, a chronically totally occluded circumflex and a diffusely diseased proximal LAD with a INSPECTOR BICYCLE of the mid LAD status post
prior bypass (DE LOS SANTOS to LAD, sequential SVG to OM to RPDA) with prior PCI of de darrick mid LAD disease in the mid LAD extending into the DE LOS SANTOS anastomosis, now with a 90% stent edge lesion, haziness at the distal stent edge and an 80% ISR lesion in the
distal third of the stent.
2. Status post successful PCI of the distal stent edge haziness and 80% ISR (Xience Skypoint 2.25 x 18 ELLIOTT, postdilated with a 2.75 NC balloon and the stent overlap section) with reduction in stenosis to 0%, maintaining REINALDO-3 flow.
3. Status post successful PCI of the 90% proximal stent edge lesion into the DE LOS SANTOS graft (Xience Skypoint 3.0 x 28 ELLIOTT, postdilated with a 3.0 NC balloon) with reduction in stenosis to 0%, subsequently complicated by spiral dissection of the DE LOS SANTOS
graft.
4. Unsuccessful rewiring of the dissected DE LOS SANTOS graft with propagation.
5. Unsuccessful wiring of the chemehuevi LAD.
6. Given the compromise of the DE LOS SANTOS flow, inability to successfully rewire the DE LOS SANTOS and inability to open the chemehuevi artery, CT surgery was called to bedside. The patient's films were reviewed and the situation assessed. After it was clear that
the chemehuevi LAD circulation was not amenable to PCI, the decision was made to take the patient for emergent bypass.
Physical Exam
Vital Signs/Labs
Vital Signs
Temp Pulse Resp BP Pulse Ox
97.4 F 61 17 123/64 99
08/25/24 08:00 08/25/24 08:15 08/25/24 08:00 08/25/24 08:16 08/25/24 08:00
08/24/24 08/25/24 08/26/24
06:59 06:59 06:59
Actual Weight 210 lb 1.608 oz 214 lb 11.684 oz
08/25/24 03:58
08/25/24 03:57
PT 37.6 Sec (11.4-14.6) H 08/25/24 03:57
INR 3.86 08/25/24 03:57
APTT 100.7 Sec (23.4-35.0) H 08/23/24 04:17
Magnesium 2.1 mg/dl (1.6-2.3) 08/24/24 04:01
Triglycerides 49 mg/dl (10-149) 08/13/24 18:21
Physical Exam
Constitutional: No acute distress and Comfortable
EENT: Anicteric
Cardiovascular: Pedal edema present and Other (mechanical click )
Respiratory: Respiratory effort normal and Lungs clear to auscul.
GI: Soft
Neuro/Psych: AO x 3
Data Reviewed
-
Date of Service: August 25, 2024
EKG: Tracing Personally Visualized and interpreted (sr)
Labs: Labs Reviewed by me
[2024-08-25] MEDS: SANTYL OINTMENT 1 APPLIC TOPICAL (10:10)
--- NOTE | 2024-08-25 10:10 | WOUNDNOTE ---
WO RN note: Patient is sitting in a recliner chair not reclined. Patient has a foam cushion. Bariatric air chair cushion added on top of foam cushion by ERINN Barry during wound care. Sacral ulcer now with moist krishnamurthy/yellow slough and lower blisters
now open partial thickness. Santyl ointment and sacral shaped silicone border foam applied. Patient having a couple bowel movements per day as per nursing. Appetite fair. Plan is [facility] transfer over the next couple of days. Instructed patient
pressure injury prevention measures. Skin on heels intact. R back with linear dry scabbed areas in a C shape, unsure what original cause was. ADELIA. Instructed patient to take the chair cushions when discharged and follow up at [facility] for sacral
ulcer. Updated CT POP Augustin who approved amending sacral wound care order including BID Santyl ointment which was ordered by POP Wolfe. Care plan and discharge instructions updated.
--- NOTE | 2024-08-25 10:14 | WOUNDNOTE ---
L GREAT TOE TIP
[2024-08-25] MEDS: VANCOCIN 275 MG IV (10:17)
--- NOTE | 2024-08-25 12:44 | CM ---
Reviewed chart. Telephone call to [facility] liaison to review status. Mr. Benavidez is not medically ready for transfer today. Met with Mr. and Mrs. Benavidez to update them on status of transfer to [facility]. Will need to pre-cert with his
insurance when medically stable. Medical work-up in progress. The discharge plan is to go to [facility] when medically stable, bed available and approved by insurance
[2024-08-25 12:58] LABS: Glucose - Point of Care 173 mg/dl (70-99)
[2024-08-25] MEDS: TYLENOL 1000 MG PO ×2 (13:11→21:18)
--- NOTE | 2024-08-25 17:26 | PTCARENOTE ---
Patient reassessed. Sleeping in bed w/ call xiao in reach. NSR BP 112/54 HR 60 POX 98% RA. CT POP Garcia reviewed patients right groin swelling/pain. Patient voiding clear yellow urine.
[2024-08-25 18:20] LABS: Glucose - Point of Care 195 mg/dl (70-99)
[2024-08-25] MEDS: ZETIA 10 MG PO (18:21)
[2024-08-25] MEDS: LIPITOR 40 MG PO (18:21)
--- NOTE | 2024-08-25 19:00 | PTCARENOTE ---
assumed care of patient @ 1900. recieved pt laying in bed, AOx3. VSS on RA. NSR on tele monitor. + pulses, +2 edema to R leg/groin. Lungs diminished on RA. tolerating diet, + BS. voiding good amount of clear yellow urine in urinal. Sternal wound
ADELIA, R and L groin sites ADELIA. PIV patent. pt resting comfortably in bed with call xiao within reach .
[2024-08-25] MEDS: SANTYL OINTMENT TOPICAL (19:26)
[2024-08-25 21:17] LABS: Glucose - Point of Care 224 mg/dl (70-99)
[2024-08-25] MEDS: KCL 20 MEQ PO (21:18)
[2024-08-25] MEDS: LANTUS 0.19 UNITS SC (21:19)
[2024-08-26] VITALS (10 sets, daily range): BP systolic 105–124; BP diastolic 53–67; PULSE 55; O2SAT 100; BMI 30.6
[2024-08-26] MEDS: ZOSYN 50 IV ×3 (00:59→13:13)
[2024-08-26] MEDS: SANTYL OINTMENT 1 APPLIC TOPICAL ×3 (00:59→21:58)
--- NOTE | 2024-08-26 03:42 | W.PN.CT ---
Today's Communication / Plan
-
-No major issues overnight. Hemodynamically and neurologically intact
-Currently on Coumadin and Plavix
-Coumadin held yesterday for INR 3.86, INR 3.56 today
-On vancomycin and Zosyn for leukocytosis, WBC 17.1 down from 20.5. TM 98.1
-Has stage III sacral decubitus ulcer for that does not appear to be infected per general surgery, recommending Santyl and wound care management
-Has right saphenectomy site hematoma, states hurts when boris-bandage applied, currently receiving warm compress
-Monitor elevated LFTs
-Monitor hyponatremia, 132, was 134 yesterday. Continue diuresis, fluid restriction, likely drinking too much
-Monitor Hyperkalemia, 5.2, should improve with diuresis today
-Diabetes education/management f/u
-PT/OT f/u
-Cardiology f/u
-Physiatry evaluating for [facility] placement
-Likely transfer to IVU today
Assessment / Plan
-
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
required extensive complex repairs & necessitated re-establishment of CPB x 2; Lysis of extensive circumferential adhesions; repair of a minor injury to the innominate vein; Open exposure of L ACCOUNTING SYSTEMS MANAGER (assisted by vascular surgery) w/ proximal and
distal control on 08/13/[address] Delatorre, pod #13
-S/p Mediastinal exploration & washout/ Chest closure, by Dr. Delatorre, 08/15/24, pod#11
- Admitted on 08/13/24 for elective cath for exertional CP and abnormal stress test
- Cath 08/13/24 with successful PCI of 80% in-stent restenosis including the distal margin of the stent leading into the circle vessel
and successful PCI of the 90% proximal stent edge restenosis, complicated by DE LOS SANTOS dissection.
- hx mechanical AVR [place] [address] Pal
- NSTEMI with 80% stenosis of LAD at DE LOS SANTOS anastomosis requiring LAD stent in 04/18/24- last Plavix dose was 08/11/24
- EF 45-50% by TTE 04/2024
- Chronic diastolic CHF
- HTN/HLD
- DM II ( on Trulicity and Jardiance)
- Coumadin anticoagulation for mechanical AVR - last dose 08/10/24
- Spinal stenosis L4-L5
- L knee arthroscopy 2012
- Cataract extraction
- Acute postop blood loss anemia in setting of preop coagulopathy (INR was 2.68 preop)- s/p multiple transfusions (13 pRBCs), transfused additional 2u PRBCs post
chest washout and closure
- Acute postop coagulopathy (4 FFPs, 1 cryo, Protamine)
- Acute postop thrombocytopenia (4 platelets), transfused additional 1 {5pk} plts post chest washout and closure
- Acute cardiogenic shock
- Acute postop atelectasis
- Acute postop hypovolemia with subsequent hypervolemia
- Acute postop pericarditis per ekg
- Acute postop pulmonary insufficiency
- Acute postop pleural effusion
- Acute postop hyponatremia
- Acute postop JULI
- Postop VDRF
- Acute postop afib with RVR
- Acute postop stage III sacral decubitus ulcer
- Acute postop leukocytosis despite antibiotics
- Acute postop right saphenectomy site hematoma
- Acute postop hyperkalemia, 5.2
- Acute postop hypermagnesemia
Discussed patient care with: Cardiology, Nursing, Respiratory Therapy, Pharmacy and Care Team
Subjective
-
Date of Service: August 26, 2024
Pt c/o tenderness to sacral decubitus and saphenectomy site making it difficult to stand and ambulate
Objective Data
-
PT 37.6 Sec (11.4-14.6) H 08/25/24 03:57
INR 3.86 08/25/24 03:57
APTT 100.7 Sec (23.4-35.0) H 08/23/24 04:17
Vital Signs
Vital Signs
Temp Pulse Resp BP Pulse Ox
98.1 F 54 16 107/55 96
08/25/24 20:39 08/26/24 02:00 08/26/24 00:00 08/26/24 00:10 08/26/24 00:00
CT Intake/Output/Weight
08/25/24 08/25/24 08/26/24
06:59 18:59 06:59
Intake Total 290 / 1380 720 / 720
Output Total 1550 / 2650 850 / 2150 1300 / 2150
Balance -1260 / -1270 -130 / -1430 -1300 / -1430
SaO2: 96 (RA)
Physical Exam
-
General: Awake, Oriented and AOx3
Cardiovascular: Regular rate & rhythm (sinus bradycardia)
Respiratory: Decreased Breath Sounds (at bases, otherwise clear)
Sternum: Stable
Incision: Clean, Dry, Intact and Dressing Intact
Extremities: Edema +2
Data Reviewed
-
Lab Results: Results Reviewed
Medications: Active Meds Reviewed
Chest X-Ray: Report Reviewed and Image Reviewed
ECG: Report Reviewed and Image Reviewed
[2024-08-26 03:51] LABS: % Basophils 0.2 % (0-2); % Eosinophils 0.9 % (0-6); % Immature Granulocytes 1.7 % (0-0.5); % Lymphocytes 7.3 % (20.5-51.1); % Monocytes 7.4 % (1.7-9.3); % Neutrophils 82.5 % (42.2-75.2); Absolute Eosinophils 0.2 10^3/uL (0-0.7); Absolute Immature Granulocytes 0.3 10^3/uL (0-0.05); Absolute Lymphocytes 1.3 10^3/uL (1.2-3.4); Absolute Monocytes 1.3 10^3/uL (0.1-0.6); Absolute Neutrophils 14.1 10^3/uL (1.4-6.5); Hematocrit 26.2 % (39.0-52.0); Hemoglobin 8.7 g/dL (13.0-18.0); Mean Corp Hgb Conc. 33.2 g/dL (33.0-37.0); Mean Corpuscular Hgb 29.1 pg (27.0-31.0); Mean Corpuscular Volume 87.6 fL (80.0-94.0); Nucleated Red Blood Cells % 0.1 % (-); Platelet Count 409 10^3/uL (130-400); Red Blood Cell Count 2.99 10^6/uL (4.70-6.10); Red Cell Dist. Width 20.5 % (11.5-14.5); White Blood Cell Count 17.1 10^3/uL (4.8-10.8)
[2024-08-26 04:09] LABS: INR 3.56; PT 35.4 Sec (11.4-14.6)
[2024-08-26 04:12] LABS: Blood Urea Nitrogen 39 mg/dl (9-20); Calcium 7.9 mg/dl (8.4-10.2); Carbon Dioxide 26 mmol/L (22-30); Chloride 98 mmol/L (98-107); Estimated Creatinine Clearance 65 ml/min; Glucose 150 mg/dl (70-99); Potassium 5.2 mmol/L (3.5-5.1); Sodium 132 mmol/L (135-145); eGFR > 60.00
[2024-08-26 04:14] LABS: Vancomycin Random 12.6 ug/ml
[2024-08-26 04:18] LABS: ALT (SGPT) 128 U/L (0-50); AST (SGOT) 145 U/L (17-59); Alkaline Phosphatase 321 U/L (38-126); Direct Bilirubin 1.7 mg/dl (0.0-0.4); Total Bilirubin 3.1 mg/dl (0.2-1.3); Total Protein 5.8 g/dl (6.3-8.2)
[2024-08-26 06:03] LABS: Magnesium 2.2 mg/dl (1.6-2.3)
[2024-08-26] MEDS: TYLENOL 1000 MG PO ×3 (07:20→22:16)
[2024-08-26] MEDS: NITRO-BID TOPICAL ×4 (07:21→17:29)
--- NOTE | 2024-08-26 07:21 | PTCARENOTE ---
pt transported to 2245 with all belongings. report given to dayshift. pt resting comfortably with call xiao within reach .
[2024-08-26 07:23] LABS: Glucose - Point of Care 168 mg/dl (70-99)
[2024-08-26] MEDS: NOVOLOG FLEXPEN 10 UNITS SC (08:25)
[2024-08-26] MEDS: NOVOLOG FLEXPEN-MODERATE RESISTANCE 1 UNITS SC ×2 (08:26→11:57)
--- NOTE | 2024-08-26 08:39 | W.PN.CD ---
Today's Communication / Plan
-
Limit fluid
OOB ambulating as able
Impression / Plan
-
Impression/Plan: 74 y/o male with DM2, HTN, HLD, severe s/p mechanical SAVR and multivessel CAD s/p prior CABG (DE LOS SANTOS to LAD, sequential SVG to OM to RPDA) with prior PCI to the mid-LAD + LAD/DE LOS SANTOS anastamosis, admitted after PCI to ISR lesions
was complicated by DE LOS SANTOS dissection requiring emergent re-operation with SVG to LAD.
#CAD
-Cath showed an 80% ISR lesion in the LAD/DE LOS SANTOS stent as well as a 90% proximal stent edge lesion, patent sequential SVG.
-PCI performed on the 80% ISR lesion (Xience Skypoint 2.25 x 18 ELLIOTT, post dilated with a 2.75 NCB in the overlap) and the 90% proximal stent edge lesion (Xience Skypoint 3.0 x 26 ELLIOTT, post dilated with a 3.0 NCB) with reduction in stenoses to 0%.
-At the end of the procedure, the lesion could not be rewired after pulling back due to tension on the balloon. Repeat angiography showed spiral dissection of the DE LOS SANTOS graft, which could not be re-wired.
-PCI of the sycuan LAD was attempted, but the lesion could not be wired.
-The patient was taken for emergent CABG.
#CABG/cardiogenic shock resolved
-Acute. EF post op 40-45%
-Repeat CABG (SVG to LAD), with Dr. Delatorre, 08/13/2024.
-CABG was complicated by RV laceration by a retained sternal wire with progressive RV disruption medial to the anastomosis, requiring extensive surgical repair and emergent ECMO cannulation.
-Chest was left open at the end of the surgery, back to OR 08/15/24 for mediastinal exploration , washout and closure
-Vascular surgery was called into the OR and performed primary repair of the peripheral cannulation site.
-Extubated 08/17/24.
-Tolerating metoprolol succinate 12.5 mg BID.
#AF with RVR:
-New onset.
-Resolved on amiodarone, tolerating additional metoprolol.
-INR now therapeutic
NSVT:
-Stable.
-Amiodarone.
Dizziness
-resolved
Elevated leukocytosis
- infectious workup ordered
- sacral decubitus
- improving
#Mechanical AVR
-Chronic, stable.
-INR now therapeutic
#HTN
-Chronic, borderline hypotension.
-Tolerating metoprolol.
#HLD
-Chronic.
-Continue atorvastatin.
#DM2
-Chronic.
-Insulin gtt per protocol.
Subjective/Interval History:
Continues feeling improved hopeful for rehab soon
DATA:
Intraop HAILEY:
CONCLUSIONS
Mild Global hypokinesis with akinesis of the apical septal wall. LVEF is 40-
45% by visual inspection.
A well-seated and properly functioning mechanical aortic prosthesis is seen.
The mitral valve is heavily calcified without stenosis. Mild regurgitation is
seen.
Mild tricuspid regurgitation.
Grade III atheromatous disease of the arch and descending thoracic aorta.
Cardiac catheterization/PCI, 08/13/2024:
CONCLUSIONS
1. Right dominant circulation with chronic total occlusion of the RCA, diffusely diseased and calcified left main coronary artery, a chronically totally occluded circumflex and a diffusely diseased proximal LAD with a THREE DIMENSIONAL ART INSTRUCTOR of the mid LAD status post
prior bypass (DE LOS SANTOS to LAD, sequential SVG to OM to RPDA) with prior PCI of de darrick mid LAD disease in the mid LAD extending into the DE LOS SANTOS anastomosis, now with a 90% stent edge lesion, haziness at the distal stent edge and an 80% ISR lesion in the
distal third of the stent.
2. Status post successful PCI of the distal stent edge haziness and 80% ISR (Xience Skypoint 2.25 x 18 ELLIOTT, postdilated with a 2.75 NC balloon and the stent overlap section) with reduction in stenosis to 0%, maintaining REINALDO-3 flow.
3. Status post successful PCI of the 90% proximal stent edge lesion into the DE LOS SANTOS graft (Xience Skypoint 3.0 x 28 ELLIOTT, postdilated with a 3.0 NC balloon) with reduction in stenosis to 0%, subsequently complicated by spiral dissection of the DE LOS SANTOS
graft.
4. Unsuccessful rewiring of the dissected DE LOS SANTOS graft with propagation.
5. Unsuccessful wiring of the sycuan LAD.
6. Given the compromise of the DE LOS SANTOS flow, inability to successfully rewire the DE LOS SANTOS and inability to open the sycuan artery, CT surgery was called to bedside. The patient's films were reviewed and the situation assessed. After it was clear that
the sycuan LAD circulation was not amenable to PCI, the decision was made to take the patient for emergent bypass.
Physical Exam
Vital Signs/Labs
Vital Signs
Temp Pulse Resp BP Pulse Ox
98.2 F 56 18 110/58 100
08/26/24 07:18 08/26/24 07:30 08/26/24 07:18 08/26/24 07:17 08/26/24 07:18
08/25/24 08/26/24 08/27/24
06:59 06:59 06:59
Actual Weight 214 lb 11.684 oz 216 lb 4.375 oz
08/26/24 03:36
08/26/24 03:36
PT 35.4 Sec (11.4-14.6) H 08/26/24 03:36
INR 3.56 08/26/24 03:36
APTT 100.7 Sec (23.4-35.0) H 08/23/24 04:17
Magnesium 2.2 mg/dl (1.6-2.3) 08/26/24 03:36
Triglycerides 49 mg/dl (10-149) 08/13/24 18:21
Physical Exam
Constitutional: No acute distress and Comfortable
EENT: Anicteric
Cardiovascular: Rhythm & rate is regular and Pedal edema present (trace)
Respiratory: Respiratory effort normal
GI: Soft
Neuro/Psych: AO x 3
Data Reviewed
-
Date of Service: August 26, 2024
EKG: Tracing Personally Visualized and interpreted (sr)
Echo: Report Reviewed by me
Labs: Labs Reviewed by me
--- NOTE | 2024-08-26 08:54 | PHA.VAN.FU ---
Vancomycin Assessment / Plan
- Assessment
Renal Function: SCR Decreasing
WBC's are: Trending Down
In the past 24 hrs, patient has been: Afebrile
Concomitant Antimicrobials: piperacillin/tazobactam
- Assessment - Therapeutic Drug Monitoring
Random Level: 12.6 - drawn ~17H after previous dose of 1250mg
- Dosing Plan
Dosing by Level: Re-dose today (Vanc 1250mg)
- Monitoring Plan
Random Level: 08/27 599
- Follow Up
Pharmacy will continue to follow.
Vancomycin Follow UP
- -
Patient Age: 74
Patient Sex: Male
Vancomycin Day #: 4
Indication: Skin And Soft Tissue
Requesting Provider: Lali Maier
Pertinent Antimicrobial Allergies:
levofloxacin - unknown
Height / Weight:
Height 5 ft 10.5 in
Actual Weight 98.1 kg
IBW in k.2
Pertinent Past Medical History: BMI ~30, DM 2
- Vital Signs / Lab Results
Temp Pulse Resp BP Pulse Ox
98.2 F 56 18 110/58 100
08/26/24 07:18 08/26/24 07:30 08/26/24 07:18 08/26/24 07:17 08/26/24 07:18
Lab Results - Hematology
08/24/24 08/25/24 08/26/24
04:01 03:58 03:36
WBC 21.0 H 20.5 H 17.1 H
Lab Results - Chemistry
08/24/24 08/25/24 08/26/24
04:01 03:57 03:36
BUN 45 H 38 H 39 H
Creatinine 1.4 H 1.4 H 1.2
Estimated Creat Clear 56 49 65
Albumin 2.9 L 3.1 L 3.0 L
Microbiology Results
08/23/24 15:51 Respiratory Culture - Preliminary
Sputum Gram negative bacilli
Gram Stain - Preliminary
08/23/24 11:12 Blood Culture - Preliminary
Blood/Venous No Growth in 48 hours- Final report to follow
08/23/24 10:35 Blood Culture - Preliminary
Blood/Venous No Growth in 48 hours- Final report to follow
Therapeutic Drug Monitoring
Random Vancomycin 12.6 ug/ml 08/26/24 03:36
[2024-08-26] MEDS: TOPROL XL PO (09:00)
--- NOTE | 2024-08-26 09:05 | PN.DE.MGMTRT ---
Insulin Management
- -
08/26/2024: Diabetes Management Follow up
74 year old male with PMH: CAD - CABG 2008 PCI 04/2024, [place], CHF, HTN, HCL, diabetes, PAT, valve disease - mechanical AVR.
Presented with Spiral dissection of KYLIE-to-LAD anastomosis w/ CP and intermittent BRENDA.
POD # 13 s/p Emergent Pump-assist beating heart bypass w/ GSV to LAD; Repair of RV injury; Significant progressive RV disruption just medial to the GSV-to-LAD anastomosis that required extensive complex repairs & necessitated re-establishment of CPB
x 2; Lysis of extensive circumferential adhesions; repair of a minor injury to the innominate vein. POD # 11 S/P Mediastinal exploration & washout/ Chest closure.
Prior to admission was taking Jardiance 25 mg daily and Trulicity 4.5 weekly on Sunday. A1C 6.5%, Cr 0.7-->1.8, eGFR 39.25 today.
Pt states he has a working glucose meter at home and checks his blood sugars daily- fasting.
Discussed use of insulin at this time both Lantus and NovoLog for glucose control.
Pt awake, alert, oriented, oob in chair, offers no complaints, able to discuss diabetes care. - Catrachita at bedside.
Glucose stable and in range, 08/25 premeal 159 to 224, FBG 150(V), 168 POC this AM.
Will continue Lantus 19 units @ hs and increase AC NovoLog 12 units AC with moderate corrective.
Discussed with Nurse. Will cont to follow.
08/20 Discussed importance of glucose control to avoid wound infection. He is in agreement. Will increase home glucose monitoring to AC HS and report to primary doctor after discharge. Patient states he is confident with self injections as he was
taking Trulicity before admission. Reviewed subtle differences between Trulicity pen preparation and insulin pen preparation; provided printed instructions for each step of pen prep and injection technique.
Diabetes History
- -
Type of Diabetes: 2 requiring insulin
Pre-Admission Diabetes Regimen
08/26/24
03:36
Creatinine 1.2
Lab Results
Hemoglobin A1c 6.5 % (4.0-5.6) H 08/13/24 09:36
Hemoglobin A1c Cancelled 08/13/24 09:36
Insulin Pump Settings
IP Diabetes Regimen
08/25/24 08/25/24 08/25/24
12:56 18:18 21:16
Glucose
POC Glucose 173 H 195 H 224 H
08/26/24 08/26/24
03:36 07:22
Glucose 150 H
POC Glucose 168 H
Meal type: Breakfast
Meal type: Breakfast
Amount consumed: 100%
Amount consumed: 100%
Patient Education
[2024-08-26] MEDS: BUMEX 2 MG PO ×2 (09:19→15:59)
[2024-08-26] MEDS: FEOSOL 325 MG PO (09:19)
[2024-08-26] MEDS: FARXIGA 10 MG PO (09:19)
[2024-08-26] MEDS: PACERONE 200 MG PO (09:20)
[2024-08-26] MEDS: MUCINEX 1200 MG PO ×2 (09:20→20:10)
[2024-08-26] MEDS: PLAVIX 75 MG PO (09:20)
[2024-08-26] MEDS: FLOMAX 0.4 MG PO (09:20)
[2024-08-26] MEDS: NEURONTIN 100 MG PO ×3 (09:20→22:16)
[2024-08-26] MEDS: SENOKOT-S 1 TABLET PO ×2 (09:21→20:10)
[2024-08-26] MEDS: PROTONIX 40 MG PO (09:21)
[2024-08-26] MEDS: THERAGRAN 1 TABLET PO (09:21)
[2024-08-26] MEDS: VANCOCIN 275 MG IV (09:24)
[2024-08-26] MEDS: VITAMIN C 500 MG PO (09:24)
[2024-08-26] MEDS: FLUSH (NSS) 2 FLUSH IV (09:24)
[2024-08-26] MEDS: LIDOCAINE 4% PATCH TOPICAL (09:45)
--- NOTE | 2024-08-26 10:14 | PTCARENOTE ---
Patient transferred first thing this morning to room 2245 by CVICU nurse. Patient oriented to the new room, and granddaughter both with him. Patient is oob in the chair, remains in SR on the monitor. Patient offering no complaints at this time,
stood at the chair to reposition which requires assist of two with transfers. Call xiao in reach, PT in to work with the patient now.l
--- NOTE | 2024-08-26 10:19 | PTCARENOTE ---
Received patient this morning resting in bed. Right wrist dressing is dry and intact with strong radial pulse palpated. is at the bedside, asking if the patient can shower here since their shower at home is upstairs. Discussed that stairs are
permitted if he was able to do them independently prior to admission. Patient seen by Dr. Oro and will have PT/OT see the patient and have him do steps.
[2024-08-26 11:52] LABS: Glucose - Point of Care 175 mg/dl (70-99)
[2024-08-26] MEDS: NOVOLOG FLEXPEN 12 UNITS SC ×2 (11:56→15:55)
[2024-08-26] MEDS: XANAX 0.5 MG PO ×2 (14:36→22:16)
[2024-08-26 15:54] LABS: Glucose - Point of Care 138 mg/dl (70-99)
[2024-08-26] MEDS: NOVOLOG FLEXPEN-MODERATE RESISTANCE SC (15:55)
--- NOTE | 2024-08-26 16:04 | PTCARENOTE ---
Patient lying in bed earlier stating he was feeling anxious, like a 'panic attack'. Stating he's had them before while here and also some bad nightmares. States that he feels like he can't catch his breath, pulse ox 99% on RA. Notified CT surgery PA
and patient given prn xanax. Now assisted oob to the chair and eating dinner, family at the bedside.
[2024-08-26] MEDS: ZETIA 10 MG PO (18:57)
[2024-08-26] MEDS: LIPITOR 40 MG PO (18:57)
[2024-08-26] MEDS: AUGMENTIN 875 MG/125 MG 1 TABLET PO (20:10)
[2024-08-26] MEDS: TOPROL XL 12.5 MG PO (20:10)
[2024-08-26] MEDS: ROXICODONE 5 MG PO (20:20)
[2024-08-26 22:03] LABS: Glucose - Point of Care 165 mg/dl (70-99)
[2024-08-26] MEDS: LANTUS 0.19 UNITS SC (22:15)
[2024-08-27] VITALS (10 sets, daily range): BP systolic 103–123; BP diastolic 55–72; PULSE 62; O2SAT 99; BMI 30.4
[2024-08-27] MEDS: NITRO-BID TOPICAL ×4 (00:07→18:01)
[2024-08-27] MEDS: MELATONIN 5 MG PO ×2 (00:07→22:28)
--- NOTE | 2024-08-27 00:33 | PTCARENOTE ---
assumed care of patient at the change of shift. AAOx3. patient states feeling more anxious and unable to sleep. xanax and melatonin given, see mar. complaining of sacral pain, wound related. wound dressing changed. turn/reposition patient. oxy 5 mg
given as well, see mar. patient states improved pain after pain medication and laying on his side. SB/SR on tele- 50s-60s. bp stable. surgical incisions intact. R thigh tender to touch, firm/ecchymotic. warm compress applied. LE edema noted, pulse
confirmed with a doppler. reviewed plan of care with patient and verbalized understanding. call xiao within reach. makes needs known.
[2024-08-27 04:34] LABS: % Basophils 0.1 % (0-2); % Eosinophils 1.3 % (0-6); % Immature Granulocytes 1.3 % (0-0.5); % Lymphocytes 7.3 % (20.5-51.1); % Monocytes 6.8 % (1.7-9.3); % Neutrophils 83.2 % (42.2-75.2); Absolute Eosinophils 0.2 10^3/uL (0-0.7); Absolute Immature Granulocytes 0.2 10^3/uL (0-0.05); Absolute Lymphocytes 1.1 10^3/uL (1.2-3.4); Absolute Neutrophils 12.5 10^3/uL (1.4-6.5); Hematocrit 29.6 % (39.0-52.0); Hemoglobin 9.4 g/dL (13.0-18.0); Mean Corp Hgb Conc. 31.8 g/dL (33.0-37.0); Mean Corpuscular Hgb 29.3 pg (27.0-31.0); Mean Corpuscular Volume 92.2 fL (80.0-94.0); Mean Platelet Volume 10.1 fL (7.4-10.4); Nucleated Red Blood Cells % 0 % (-); Platelet Count 422 10^3/uL (130-400); Red Blood Cell Count 3.21 10^6/uL (4.70-6.10); Red Cell Dist. Width 20.9 % (11.5-14.5)
[2024-08-27 04:50] LABS: INR 3.14; PT 32.1 Sec (11.4-14.6)
[2024-08-27 05:03] LABS: Blood Urea Nitrogen 36 mg/dl (9-20); Calcium 8.3 mg/dl (8.4-10.2); Carbon Dioxide 30 mmol/L (22-30); Chloride 101 mmol/L (98-107); Estimated Creatinine Clearance 56 ml/min; Glucose 154 mg/dl (70-99); Potassium 4.2 mmol/L (3.5-5.1); Sodium 135 mmol/L (135-145); eGFR 53.07
[2024-08-27] MEDS: TYLENOL 1000 MG PO ×3 (06:22→22:28)
--- NOTE | 2024-08-27 07:07 | W.PN.CT ---
Today's Communication / Plan
-
-pod # 14
-no issues overnight. Hemodynamically and neurologically intact
-wbc is improving - 15.0 today. Switched to po Augmentin last night (respiratory cx with E.Coli)
-INR 3.14 today. Last Coumadin dose was on 08/23
-Has stage III sacral decubitus ulcer for that does not appear to be infected per general surgery, recommending Santyl and wound care management
-Has right saphenectomy site hematoma, states hurts when boris-bandage applied, currently receiving warm compress
-Monitor elevated LFTs
-Monitor hyponatremia, 135, was 132 yesterday. Continue diuresis (on po bid Bumex), fluid restriction, likely drinking too much
-Hyperkalemia improved - 4.2 today
-Diabetes education/management f/u
-PT/OT f/u
-Cardiology f/u
-Physiatry evaluating for [facility] placement
Assessment / Plan
-
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
required extensive complex repairs & necessitated re-establishment of CPB x 2; Lysis of extensive circumferential adhesions; repair of a minor injury to the innominate vein; Open exposure of L DRY PAN OPERATOR (assisted by vascular surgery) w/ proximal and
distal control on 08/13/[address] Delatorre, pod #14
-S/p Mediastinal exploration & washout/ Chest closure, by Dr. Dleatorre, 08/15/24, pod#12
- Admitted on 08/13/24 for elective cath for exertional CP and abnormal stress test
- Cath 08/13/24 with successful PCI of 80% in-stent restenosis including the distal margin of the stent leading into the paimiut vessel
and successful PCI of the 90% proximal stent edge restenosis, complicated by DE LOS SANTOS dissection.
- hx mechanical AVR /CABG [place] [address] Pal
- NSTEMI with 80% stenosis of LAD at DE LOS SANTOS anastomosis requiring LAD stent in 04/18/24- last Plavix dose was 08/11/24
- EF 45-50% by TTE 04/2024
- Chronic diastolic CHF
- HTN/HLD
- DM II ( on Trulicity and Jardiance)
- Coumadin anticoagulation for mechanical AVR - last dose 08/10/24
- Spinal stenosis L4-L5
- L knee arthroscopy 2012
- Cataract extraction
- Acute postop blood loss anemia in setting of preop coagulopathy (INR was 2.68 preop)- s/p multiple transfusions (13 pRBCs), transfused additional 2u PRBCs post
chest washout and closure
- Acute postop coagulopathy (4 FFPs, 1 cryo, Protamine)
- Acute postop thrombocytopenia (4 platelets), transfused additional 1 {5pk} plts post chest washout and closure
- Acute cardiogenic shock
- Acute postop atelectasis
- Acute postop hypovolemia with subsequent hypervolemia
- Acute postop pericarditis per ekg
- Acute postop pulmonary insufficiency
- Acute postop pleural effusion
- Acute postop hyponatremia
- Acute postop JULI
- Postop VDRF
- Acute postop afib with RVR
- Acute postop stage III sacral decubitus ulcer
- Acute postop leukocytosis despite antibiotics
- Acute postop right saphenectomy site hematoma
- Acute postop hyperkalemia, 5.2
- Acute postop hypermagnesemia
Discussed patient care with: Nursing and Care Team
Subjective
-
Date of Service: August 27, 2024
Objective Data
-
Lab Results
08/27/24 04:11
08/27/24 04:11
PT 32.1 Sec (11.4-14.6) H 08/27/24 04:11
INR 3.14 08/27/24 04:11
APTT 100.7 Sec (23.4-35.0) H 08/23/24 04:17
Vital Signs
Vital Signs
Temp Pulse Resp BP Pulse Ox
97.3 F 57 18 103/58 100
08/27/24 06:54 08/27/24 07:00 08/27/24 06:54 08/27/24 06:58 08/27/24 06:54
CT Intake/Output/Weight
08/26/24 08/27/24 08/27/24
18:59 06:59 18:59
Intake Total 1525 / 1525
Output Total 1375 / 2775 1400 / 2775
Balance 150 / -1250 -1400 / -1250
SaO2: 100
Physical Exam
-
General: Awake and AOx3
Cardiovascular: Regular rate & rhythm, No Murmurs and No Rub
Respiratory: Decreased Breath Sounds
Sternum: Stable
Incision: Clean, Dry and Intact
Extremities: Edema +1 (b/l . R thigh hematoma: no warmth or erythema. Incisions are cdi)
Data Reviewed
-
Lab Results: Results Reviewed
Medications: Active Meds Reviewed
Chest X-Ray: Report Reviewed and Image Reviewed
ECG: Report Reviewed and Image Reviewed
[2024-08-27 07:08] LABS: Glucose - Point of Care 185 mg/dl (70-99)
[2024-08-27] MEDS: NOVOLOG FLEXPEN-MODERATE RESISTANCE 1 UNITS SC ×2 (07:25→16:57)
[2024-08-27] MEDS: NOVOLOG FLEXPEN 12 UNITS SC ×3 (07:25→16:58)
--- NOTE | 2024-08-27 07:43 | PN.DE.MGMTRT ---
Insulin Management
- -
08/27/2024: Diabetes Management Follow up
74 year old male with PMH: CAD - CABG 2008 PCI 04/2024, [place], CHF, HTN, HCL, diabetes, PAT, valve disease - mechanical AVR.
Presented with Spiral dissection of KYLIE-to-LAD anastomosis w/ CP and intermittent BRENDA.
POD # 13 s/p Emergent Pump-assist beating heart bypass w/ GSV to LAD; Repair of RV injury; Significant progressive RV disruption just medial to the GSV-to-LAD anastomosis that required extensive complex repairs & necessitated re-establishment of CPB
x 2; Lysis of extensive circumferential adhesions; repair of a minor injury to the innominate vein. POD # 11 S/P Mediastinal exploration & washout/ Chest closure.
Prior to admission was taking Jardiance 25 mg daily and Trulicity 4.5 weekly on Sunday. A1C 6.5%, Cr 0.7-->1.8, eGFR 39.25 today.
Pt states he has a working glucose meter at home and checks his blood sugars daily- fasting.
Discussed use of insulin at this time both Lantus and NovoLog for glucose control.
Pt awake, alert, oriented, oob in chair, offers no complaints, able to discuss diabetes care. at bedside.
Glucose stable and in range, 08/26 premeal 138 to 175, FBG 154(V), 185 POC this AM.
08/27 Will continue Lantus 19 units @ hs with AC NovoLog 12 units AC with moderate corrective.
Discussed with Nurse. Will cont to follow.
08/20 Discussed importance of glucose control to avoid wound infection. He is in agreement. Will increase home glucose monitoring to HS and report to primary doctor after discharge. Patient states he is confident with self injections as he was
taking Trulicity before admission. Reviewed subtle differences between Trulicity pen preparation and insulin pen preparation; provided printed instructions for each step of pen prep and injection technique.
Diabetes History
- -
Type of Diabetes: 2 requiring insulin
Pre-Admission Diabetes Regimen
08/27/24
04:11
Creatinine 1.4 H
Lab Results
Hemoglobin A1c 6.5 % (4.0-5.6) H 08/13/24 09:36
Hemoglobin A1c Cancelled 08/13/24 09:36
Insulin Pump Settings
IP Diabetes Regimen
08/26/24 08/26/24 08/26/24
11:50 15:53 22:01
Glucose
POC Glucose 175 H 138 H 165 H
08/27/24 08/27/24
04:11 07:07
Glucose 154 H
POC Glucose 185 H
Meal type: Dinner
Meal type: Lunch
Meal type: Breakfast
Amount consumed: 100%
Amount consumed: 100%
Amount consumed: 100%
Patient Education
--- NOTE | 2024-08-27 08:22 | W.PN.CD ---
Today's Communication / Plan
-
Cont post-op care likely rehab tomorrow
ambulate as able
Impression / Plan
-
Impression/Plan: 74 y/o male with DM2, HTN, HLD, severe s/p mechanical SAVR and multivessel CAD s/p prior CABG (DE LOS SANTOS to LAD, sequential SVG to OM to RPDA) with prior PCI to the mid-LAD + LAD/DE [place] SANTOS anastamosis, admitted after PCI to ISR lesions
was complicated by DE LOS SANTOS dissection requiring emergent re-operation with SVG to LAD.
#CAD
-Cath showed an 80% ISR lesion in the LAD/DE [place] SANTOS stent as well as a 90% proximal stent edge lesion, patent sequential SVG.
-PCI performed on the 80% ISR lesion (Xience Skypoint 2.25 x 18 ELLIOTT, post dilated with a 2.75 NCB in the overlap) and the 90% proximal stent edge lesion (Xience Skypoint 3.0 x 26 ELLIOTT, post dilated with a 3.0 NCB) with reduction in stenoses to 0%.
-At the end of the procedure, the lesion could not be rewired after pulling back due to tension on the balloon. Repeat angiography showed spiral dissection of the DE [place] SANTOS graft, which could not be re-wired.
-PCI of the [place] LAD was attempted, but the lesion could not be wired.
-The patient was taken for emergent CABG.
#CABG/cardiogenic shock resolved
-Acute. EF post op 40-45%
-Repeat CABG (SVG to LAD), with Dr. Delatorre, 08/13/2024.
-CABG was complicated by RV laceration by a retained sternal wire with progressive RV disruption medial to the anastomosis, requiring extensive surgical repair and emergent ECMO cannulation.
-Chest was left open at the end of the surgery, back to OR 08/15/24 for mediastinal exploration , washout and closure
-Vascular surgery was called into the OR and performed primary repair of the peripheral cannulation site.
-Extubated 08/17/24.
-Tolerating metoprolol succinate 12.5 mg BID.
#AF with RVR:
-New onset resolved on amiodarone, tolerating additional metoprolol.
-INR now therapeutic
NSVT:
-Stable.
-Amiodarone.
Dizziness
-resolved
Elevated leukocytosis
- infectious workup ordered --> unremarkable
- sacral decubitus
- improving now off abx
#Mechanical AVR
-Chronic, stable.
-INR now therapeutic
#HTN
-Chronic, borderline hypotension.
-Tolerating metoprolol.
#HLD
-Chronic.
-Continue atorvastatin.
#DM2
-Chronic.
-Insulin gtt per protocol.
Subjective/Interval History:
Likely rehab tomorrow, feels well today
DATA:
Intraop HAILEY:
CONCLUSIONS
Mild Global hypokinesis with akinesis of the apical septal wall. LVEF is 40-
45% by visual inspection.
A well-seated and properly functioning mechanical aortic prosthesis is seen.
The mitral valve is heavily calcified without stenosis. Mild regurgitation is
seen.
Mild tricuspid regurgitation.
Grade III atheromatous disease of the arch and descending thoracic aorta.
Cardiac catheterization/PCI, 08/13/2024:
CONCLUSIONS
1. Right dominant circulation with chronic total occlusion of the RCA, diffusely diseased and calcified left main coronary artery, a chronically totally occluded circumflex and a diffusely diseased proximal LAD with a MIXER OPERATOR VACUUM PAN SALT of the mid LAD status post
prior bypass (DE LOS SANTOS to LAD, sequential SVG to OM to RPDA) with prior PCI of de darrick mid LAD disease in the mid LAD extending into the DE [place] SANTOS anastomosis, now with a 90% stent edge lesion, haziness at the distal stent edge and an 80% ISR lesion in the
distal third of the stent.
2. Status post successful PCI of the distal stent edge haziness and 80% ISR (Xience Skypoint 2.25 x 18 ELLIOTT, postdilated with a 2.75 NC balloon and the stent overlap section) with reduction in stenosis to 0%, maintaining REINALDO-3 flow.
3. Status post successful PCI of the 90% proximal stent edge lesion into the DE LOS SANTOS graft (Xience Skypoint 3.0 x 28 ELLIOTT, postdilated with a 3.0 NC balloon) with reduction in stenosis to 0%, subsequently complicated by spiral dissection of the DE LOS SANTOS
graft.
4. Unsuccessful rewiring of the dissected DE LOS SANTOS graft with propagation.
5. Unsuccessful wiring of the [place] LAD.
6. Given the compromise of the DE [place] SANTOS flow, inability to successfully rewire the DE LOS SANTOS and inability to open the [place] artery, CT surgery was called to bedside. The patient's films were reviewed and the situation assessed. After it was clear that
the [place] LAD circulation was not amenable to PCI, the decision was made to take the patient for emergent bypass.
Physical Exam
Vital Signs/Labs
Vital Signs
Temp Pulse Resp BP Pulse Ox
97.3 F 57 18 103/58 100
08/27/24 06:54 08/27/24 07:00 08/27/24 06:54 08/27/24 06:58 08/27/24 07:18
08/26/24 08/27/24 08/28/24
06:59 06:59 06:59
Actual Weight 216 lb 4.375 oz 214 lb 11.684 oz
08/27/24 04:11
08/27/24 04:11
PT 32.1 Sec (11.4-14.6) H 08/27/24 04:11
INR 3.14 08/27/24 04:11
APTT 100.7 Sec (23.4-35.0) H 08/23/24 04:17
Magnesium 2.2 mg/dl (1.6-2.3) 08/26/24 03:36
Triglycerides 49 mg/dl (10-149) 08/13/24 18:21
Physical Exam
Constitutional: No acute distress and Comfortable
EENT: Anicteric
Cardiovascular: Rhythm & rate is regular and Pedal edema present (traace)
Respiratory: Respiratory effort normal
GI: Soft
Neuro/Psych: AO x 3
Data Reviewed
-
Date of Service: August 27, 2024
EKG: Tracing Personally Visualized and interpreted (sr)
Echo: Report Reviewed by me
Labs: Labs Reviewed by me
[2024-08-27] MEDS: AUGMENTIN 875 MG/125 MG 1 TABLET PO ×2 (08:29→20:07)
[2024-08-27] MEDS: FEOSOL 325 MG PO (08:30)
[2024-08-27] MEDS: FARXIGA 10 MG PO (08:30)
[2024-08-27] MEDS: FLOMAX 0.4 MG PO (08:30)
[2024-08-27] MEDS: MUCINEX 1200 MG PO ×2 (08:31→20:06)
[2024-08-27] MEDS: PLAVIX 75 MG PO (08:31)
[2024-08-27] MEDS: LIDOCAINE 4% PATCH TOPICAL (08:31)
[2024-08-27] MEDS: PACERONE 200 MG PO (08:31)
[2024-08-27] MEDS: NEURONTIN 100 MG PO ×3 (08:31→22:28)
[2024-08-27] MEDS: TOPROL XL PO (08:32)
[2024-08-27] MEDS: THERAGRAN 1 TABLET PO (08:32)
[2024-08-27] MEDS: PROTONIX 40 MG PO (08:32)
[2024-08-27] MEDS: SENOKOT-S 1 TABLET PO (08:32)
[2024-08-27] MEDS: VITAMIN C 500 MG PO (08:33)
[2024-08-27] MEDS: BUMEX 2 MG PO ×2 (08:33→16:57)
[2024-08-27] MEDS: FLUSH (NSS) 1 FLUSH IV (08:34)
--- NOTE | 2024-08-27 09:14 | PTCARENOTE ---
Received patient this morning sitting oob in the chair, at the bedside. Patient was up early, washed by prior shift and is now feeling sleepy. After breakfast and morning meds, assisted back to bed, call xiao in reach.
[2024-08-27] MEDS: SANTYL OINTMENT 1 APPLIC TOPICAL ×2 (10:21→20:08)
[2024-08-27 11:49] LABS: Glucose - Point of Care 219 mg/dl (70-99)
[2024-08-27] MEDS: NOVOLOG FLEXPEN-MODERATE RESISTANCE 3 UNITS SC (12:05)
--- NOTE | 2024-08-27 13:46 | CM ---
Addendum entered by STU Stewart 08/27/24 16:16:
Call to [facility], pending ref# [id number]. Will await determination/ pended to [facility] for acute rehab.
Original Note:
CM following for DC planning needs.
Met w/ patient, granddtr. at bedside.
Pt. reports that he is feeling well. He is hopeful and planning for transfer to [facility] tomorrow, 08/28.
I will initiate pre-certification thru [facility].
Will follow.
--- NOTE | 2024-08-27 14:40 | PTOTSP ---
Speech Language Pathology
Pt seen for dysphagia tx. CXR from 08/21 showed clear lungs. RN reported good appetite with no overt issues. present at bedside. When discussed ACETYLENE OPERATOR role, pt immediately stated he has been choking. Reports of difficulty somewhat conflicting.
Pt stated he has had issues for a few years with pills sticking in upper chest. He had OP VSE and endoscopy in [id number]. He stated he coughs after eating (at times stated immediately after and at other times, states this is 20 minutes following
P.O. intake). He also reported coughing throughout the night.
Of most concern, pt reported coughing with liquids since surgery. Raspy hoarse voice also noted, which pt/ reported is new since surgery. Seen with single sips of thin water, both via cup and straw. Immediate cough with cup sip, delayed cough
with straw sip.
Given pt reports of increased difficulty swallowing, recommend instrumental swallowing assessment.
Recommend:
(1) VSE 08/28
(2) Regular solids/thin liquids
(3) Aspiration precautions: sit upright during meals and for at least 30 minutes post meals, slow rate, single sips
(4) Meds whole in puree
(5) ACETYLENE OPERATOR to continue to follow
[2024-08-27 16:50] LABS: Glucose - Point of Care 165 mg/dl (70-99)
[2024-08-27] MEDS: ZETIA 10 MG PO (18:01)
[2024-08-27] MEDS: LIPITOR 40 MG PO (18:01)
--- NOTE | 2024-08-27 19:12 | PTCARENOTE ---
Patient having serosanguineous drainage at left groin site, dressing saturated. Notified CT surgery XEROX MACHINE ASSEMBLER who assessed incision and expressed some bloody drainage from the wound, lenore are intact. ABD dressing applied.
[2024-08-27] MEDS: TOPROL XL 12.5 MG PO (20:07)
[2024-08-27] MEDS: SENOKOT-S PO (20:10)
--- NOTE | 2024-08-27 20:40 | PTCARENOTE ---
pt received at change of shift. pt seen and assessed in room. pt AOx3, tele NSR. BP 122/64. no complaints of pain at this time, continuing q2 turns using air cushion. this RN discussed POC with pt. pt. verbalizes understanding. Pt able to swallow
pills whole with applesauce without difficulty. Call xiao within reach. Continuing to monitor at this time.
[2024-08-27 21:25] LABS: Glucose - Point of Care 161 mg/dl (70-99)
[2024-08-27] MEDS: LANTUS 0.19 UNITS SC (22:28)
[2024-08-27] MEDS: XANAX 0.5 MG PO (22:28)
[2024-08-28] MEDS: NITRO-BID TOPICAL ×3 (00:07→14:03)
--- NOTE | 2024-08-28 02:09 | W.PN.CT ---
Today's Communication / Plan
-
- for video barium swallow
- remove left groin lenore (every other one)
- for DC to [facility] pending insurance approval
- Day #09/08 for Augmentin
Assessment / Plan
-
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
required extensive complex repairs & necessitated re-establishment of CPB x 2; Lysis of extensive circumferential adhesions; repair of a minor injury to the innominate vein; Open exposure of L REFRESH TECHNICIAN (assisted by vascular surgery) w/ proximal and
distal control on 08/13/[address] Delatorre, pod #[id number]
-S/p Mediastinal exploration & washout/ Chest closure, by Dr. Delatorre, 08/15/24, pod#13
- Admitted on 08/13/24 for elective cath for exertional CP and abnormal stress test
- Cath 08/13/24 with successful PCI of 80% in-stent restenosis including the distal margin of the stent leading into the [place] vessel
and successful PCI of the 90% proximal stent edge restenosis, complicated by DE LOS SANTOS dissection.
- hx mechanical AVR /CAB[place] [address] Pal
- NSTEMI with 80% stenosis of LAD at DE [place] SANTOS anastomosis requiring LAD stent in 04/18/24- last Plavix dose was 08/11/24
- EF 45-50% by TTE 04/2024
- Chronic diastolic CHF
- HTN/HLD
- DM II ( on Trulicity and Jardiance)
- Coumadin anticoagulation for mechanical AVR - last dose 08/10/24
- Spinal stenosis L4-L5
- L knee arthroscopy 2012
- Cataract extraction
- Acute postop blood loss anemia in setting of preop coagulopathy (INR was 2.68 preop)- s/p multiple transfusions (13 pRBCs), transfused additional 2u PRBCs post
chest washout and closure
- Acute postop coagulopathy (4 FFPs, 1 cryo, Protamine)
- Acute postop thrombocytopenia (4 platelets), transfused additional 1 {5pk} plts post chest washout and closure
- Acute cardiogenic shock
- Acute postop atelectasis
- Acute postop hypovolemia with subsequent hypervolemia
- Acute postop pericarditis per ekg
- Acute postop pulmonary insufficiency
- Acute postop pleural effusion
- Acute postop hyponatremia
- Acute postop JULI
- Postop VDRF
- Acute postop afib with RVR
- Acute postop stage III sacral decubitus ulcer
- Acute postop leukocytosis despite antibiotics
- Acute postop right saphenectomy site hematoma
- Acute postop hyperkalemia, 5.2
- Acute postop hypermagnesemia
- Acute post-op dysphagia
- Acute post-op RLE harvest site hematoma
- Acute post-op E. Coli pneumonia
Discussed patient care with: Cardiology and Nursing
Subjective
Procedure
Emergent salvage redo CABG x 1 SVG-LAD, repair femoral cannulation site by Drs. Delatorre/Marcelino-pod#15
Return to OR for chest closure pod#13
-
Date of Service: August 28, 2024
Objective Data
-
Lab Results
08/27/24 04:11
PT 32.1 Sec (11.4-14.6) H 08/27/24 04:11
INR 3.14 08/27/24 04:11
APTT 100.7 Sec (23.4-35.0) H 08/23/24 04:17
Vital Signs
Vital Signs
Temp Pulse Resp BP Pulse Ox
98.3 F 59 18 123/68 97
08/27/24 22:25 08/28/24 00:00 08/27/24 22:25 08/27/24 22:25 08/27/24 22:25
CT Intake/Output/Weight
08/27/24 08/27/24 08/28/24
06:59 18:59 06:59
Intake Total 600 / 750 150 / 750
Output Total 1400 / 2775 1615 / 2635 1020 / 2635
Balance -1400 / -1250 -1015 / -1885 -870 / -1885
SaO2: 97
Physical Exam
-
General: AOx3
Cardiovascular: Regular rate & rhythm
Respiratory: Clear and Equal
Sternum: Stable
Incision: Clean, Dry and Intact
Data Reviewed
-
Lab Results: Results Reviewed
Medications: Active Meds Reviewed
Chest X-Ray: Report Reviewed and Image Reviewed
[2024-08-28 02:35] VITALS: BP 106/59
[2024-08-28 02:36] VITALS: BP 106/59
[2024-08-28 03:24] LABS: % Basophils 0.2 % (0-2); % Immature Granulocytes 1.1 % (0-0.5); % Lymphocytes 7.5 % (20.5-51.1); % Monocytes 7.5 % (1.7-9.3); % Neutrophils 82.7 % (42.2-75.2); Absolute Eosinophils 0.1 10^3/uL (0-0.7); Absolute Immature Granulocytes 0.2 10^3/uL (0-0.05); Absolute Lymphocytes 1.1 10^3/uL (1.2-3.4); Absolute Monocytes 1.1 10^3/uL (0.1-0.6); Absolute Neutrophils 11.9 10^3/uL (1.4-6.5); Hematocrit 28.5 % (39.0-52.0); Hemoglobin 9.2 g/dL (13.0-18.0); Mean Corp Hgb Conc. 32.3 g/dL (33.0-37.0); Mean Corpuscular Hgb 29.3 pg (27.0-31.0); Mean Corpuscular Volume 90.8 fL (80.0-94.0); Nucleated Red Blood Cells % 0 % (-); Platelet Count 453 10^3/uL (130-400); Red Blood Cell Count 3.14 10^6/uL (4.70-6.10); Red Cell Dist. Width 20.9 % (11.5-14.5); White Blood Cell Count 14.4 10^3/uL (4.8-10.8)
[2024-08-28 03:42] LABS: INR 2.85; PT 30.3 Sec (11.4-14.6)
[2024-08-28] MEDS: TYLENOL 1000 MG PO ×2 (05:24→14:08)
[2024-08-28] MEDS: NOVOLOG FLEXPEN 12 UNITS SC (07:25)
[2024-08-28] MEDS: NOVOLOG FLEXPEN-MODERATE RESISTANCE 1 UNITS SC (07:26)
[2024-08-28 07:33] LABS: Glucose - Point of Care 197 mg/dl (70-99)
--- NOTE | 2024-08-28 07:43 | PN.DE.MGMTRT ---
Insulin Management
- -
08/28/2024: Diabetes Management Follow up
74 year old male with PMH: CAD - CABG 2008 PCI 04/2024, [place], CHF, HTN, HCL, diabetes, PAT, valve disease - mechanical AVR.
Presented with Spiral dissection of KYLIE-to-LAD anastomosis w/ CP and intermittent BRENDA.
POD # 15 s/p Emergent Pump-assist beating heart bypass w/ GSV to LAD; Repair of RV injury; Significant progressive RV disruption just medial to the GSV-to-LAD anastomosis that required extensive complex repairs & necessitated re-establishment of CPB
x 2; Lysis of extensive circumferential adhesions; repair of a minor injury to the innominate vein. POD # 13 S/P Mediastinal exploration & washout/ Chest closure.
Prior to admission was taking Jardiance 25 mg daily and Trulicity 4.5 weekly on Sunday. A1C 6.5%, Cr 0.7-->1.8, eGFR 39.25 today.
Pt states he has a working glucose meter at home and checks his blood sugars daily- fasting.
Discussed use of insulin at this time both Lantus and NovoLog for glucose control.
Pt awake, alert, oriented, oob in chair, offers no complaints, able to discuss diabetes care. at bedside.
Glucose stable, 08/27 premeal 154 to 219, FBG 197.
08/28 Will increase Lantus from 19 units to 21 units @ hs; increase AC NovoLog from 12 units to 14 units change moderate corrective to low corrective AC.
Discussed with Nurse. Will cont to follow.
08/20 Discussed importance of glucose control to avoid wound infection. He is in agreement. Will increase home glucose monitoring to AC HS and report to primary doctor after discharge. Patient states he is confident with self injections as he was
taking Trulicity before admission. Reviewed subtle differences between Trulicity pen preparation and insulin pen preparation; provided printed instructions for each step of pen prep and injection technique.
Diabetes History
- -
Type of Diabetes: 2 requiring insulin
Pre-Admission Diabetes Regimen
Lab Results
Hemoglobin A1c 6.5 % (4.0-5.6) H 08/13/24 09:36
Hemoglobin A1c Cancelled 08/13/24 09:36
Insulin Pump Settings
IP Diabetes Regimen
08/27/24 08/27/24 08/27/24
11:47 16:49 21:24
POC Glucose 219 H 165 H 161 H
08/28/24
07:22
POC Glucose 197 H
Meal type: Lunch
Meal type: Breakfast
Amount consumed: 100%
Amount consumed: 100%
Patient Education
[2024-08-28] MEDS: PACERONE 200 MG PO (07:48)
[2024-08-28] MEDS: MUCINEX 1200 MG PO (07:48)
[2024-08-28] MEDS: PROTONIX 40 MG PO (07:48)
[2024-08-28] MEDS: AUGMENTIN 875 MG/125 MG 1 TABLET PO (07:48)
[2024-08-28] MEDS: BUMEX 2 MG PO (07:48)
[2024-08-28] MEDS: PLAVIX 75 MG PO (07:49)
[2024-08-28] MEDS: FARXIGA 10 MG PO (07:49)
[2024-08-28] MEDS: TOPROL XL 12.5 MG PO (07:49)
[2024-08-28] MEDS: VITAMIN C 500 MG PO (07:49)
[2024-08-28] MEDS: NEURONTIN 100 MG PO (07:49)
[2024-08-28] MEDS: FLOMAX 0.4 MG PO (07:49)
[2024-08-28] MEDS: THERAGRAN 1 TABLET PO (07:50)
[2024-08-28] MEDS: FEOSOL 325 MG PO (07:50)
[2024-08-28 08:11] VITALS: BP 109/55
[2024-08-28] MEDS: NOVOLOG FLEXPEN SC (08:48)
[2024-08-28] MEDS: TYLENOL 650 MG PO (08:49)
--- NOTE | 2024-08-28 09:10 | PTOTSP ---
Speech Language Pathology
VIDEOFLUOROSCOPIC SWALLOWING EXAMINATION (VSE) completed. Oral phase of swallow WNL. Mild-mod pharyngeal dysphagia noted. Moderate to severe amount of vallecular residue with trace to mod pyriform sinus residue. Liquid wash partially effective
at reducing residue post regular solids. Thin liquids via single cup sip and puree resulted in supraglottic penetration which fully cleared (PAS 2). Consecutive sips of thin liquids via straw resulted in trace silent aspiration (PAS 8). This
aspiration was noted during the swallow, but also from spillover from pyriform sinuses. Cued throat clear and cough were ineffective at clearing aspirated material despite strong cough noted. Esophageal sweep with some residue without backflow.
Swallow function has worsened since VSE completed in 2020. Suspect related to prolonged hospitalization with cardiac surgery and intubation. Pt continues to note a raspy voice.
Recommend:
(1) Regular solids/thin liquids
(2) Aspiration precautions: sit upright, single cup sips, slow rate, sip of liquid intermittently during meals to reduce pharyngeal residue
(3) Can consider meds crushed in puree as appropriate given reports of globus sensation with meds whole in puree
(4) Consider ENT consult if voicing does not return to baseline
(5) Consider GI consult or further esophageal imaging
(6) PRESCHOOL ADVISER to continue to follow for dysphagia tx
[2024-08-28] MEDS: LIDOCAINE 4% PATCH TOPICAL (09:42)
[2024-08-28] MEDS: NOVOLOG FLEXPEN-LOW RESISTANCE SC (09:43)
[2024-08-28 10:53] VITALS: BP 103/54
--- NOTE | 2024-08-28 10:58 | W.DCSUMMARY ---
Discharge Summary
Discharge Data
Date of Admission: 08/13/24
Date of Discharge: 08/28/24
-
Pending Results: No
Hospital Course
Primary care physician: Kyrie Asher
Outpatient glass polisher: Traci
Inpatient consultants: [facility] cardiology
Procedures:
1. 08/13/24 elective left heart catheterization with successful PCI of in-stent restenosis of recently placed stent of DE LOS SANTOS-LAD anastomosis complicated by spiral dissection of [place] DE LOS SANTOS
2. 08/13/24 emergent salvage redo CABG x1 (SVG-LAD), on pump no X-clamp by Dr. Patrice Delatorre; with primary repair of left femoral artery cannulation site by Dr. Benson
3. 08/15/24 chest washout and closure by Dr. Patrice Delatorre
Primary Diagnosis:
1. in-stent restenosis of previously placed (04/2024) DE LOS SANTOS-LAD anastomosis stent complicated by [place] DE LOS SANTOS dissection
2. CAD s/p remote CABG (2008), recent PCI with LAD stent (04/2024)
3. hx aortic stenosis s/p mechanical AVR 2008, on Coumadin
Secondary Diagnoses:
1. Hypertension
2. Hyperlipidemia
3. Uvv-gyanctq-jcedzbizg diabetes
4. L4-L5 spinal stenosis
5. Chronic diastolic congestive heart failure
6. History of cataracts status post extraction
7. Left knee arthroscopy 2012
8. Acute postop blood loss anemia, now stable; status post massive transfusion postop for severe coagulopathy
9. Acute postop coagulopathy status post FFP, platelet and cryo transfusions, resolved
10. Acute postop thrombocytopenia, resolved
11. Acute cardiogenic shock, resolved
12. acute postop pulmonary insufficiency, resolved
13. Postoperative JULI, resolved
14. Postoperative VDRF
15. Postoperative atrial fibrillation with RVR
16. Postoperative stage III sacral decubitus ulcer
17. Right lower extremity saphenous vein harvest site hematoma
18. Left femoral artery cutdown site hematoma
19. Postop leukocytosis with positive sputum culture for E. coli, on Augmentin x 10 days
20. Postoperative mild to moderate dysphagia, on thins and regular solids with strict aspiration precautions
HPI: Patient is a very pleasant 74-year-old male who had a positive outpatient stress test and was therefore scheduled for an elective cardiac catheterization. He has a significant history for CABG and mechanical AVR in 2008 and subsequent LAD
stent in April 2024. On 08/13/2024 he had a successful PCI of his in-stent restenosis at DE [place] SANTOS LAD anastomosis site, but unfortunately complicated by a spiral dissection of his [place] DE LOS SANTOS compromising his LAD flow. He was taken emergently to the
operating room where he underwent a redo sternotomy CABG x 1 with saphenous vein graft to LAD. Please see full operative report for details.
Hospital course: Patient was transferred to CVICU per protocol on multiple pressors and deep sedation including paralytic due to his open chest. Patient was severely coagulopathic requiring multiple transfusions of packed cells, platelets and FFP.
He remained critically ill but stable overnight. On postop day 1 he remained on Levophed, dobutamine, vecuronium, fentanyl and propofol. His coagulopathy has improved, chest tube outputs are acceptable. On postop day 2 he was taken back to the
operating room for chest washout and closure without any complications. He received 1 pack of platelets preop for thrombocytopenia and 2 additional units of packed cells periop for hemoglobin of 7.8. He was started on a Bumex drip and is diuresing
very well. Paralytic was stopped and patient was woken up but remained intubated overnight. On postop day 3 patient did spontaneous breathing trials, but PaO2 remains low, he was continued on dobutamine and amiodarone drip was added for increased
ventricular ectopy. Bumex drip continues as well as Precedex for some agitation. On postop day 4 he was extubated in the morning. He had some A-fib with RVR for a few hours with spontaneous conversion. Dobutamine is off and he is continued with
aggressive diuresis. Patient became somewhat hypotensive after he converted to sinus bradycardia, dobutamine restarted at 1. On postop day 5 dobutamine remains at 1, he passed a speech and swallow and was started on a diet with Ensure. P.o. meds
were resumed, Thaxton and mediastinal chest tubes were discontinued. IV amiodarone stopped and insulin drip has been transitioned to Lantus and NovoLog. PT OT consult. On postop day 6 he started on heparin for his mechanical AVR, Coumadin 5 mg
started that evening. Continues aggressive diuresis with Bumex drip. On postop day 7 dobutamine has been weaned off, he continues to work with PT OT and acute rehab was consulted. INR is 1.3, he was given another 5 mg of Coumadin Bumex drip has
been transitioned to IV push twice daily. He is satting 97% on room air his art line and Becerra were also discontinued. On postop day 8 he continues to make progress 7.5 mg of Coumadin that evening. On postop day 9 he was seen by physiatry and
recommended for acute rehab. INR is 1.7--10 mg of Coumadin was given that evening. On postop day 10 his INR is 2.03, heparin drip has been discontinued he was given 7.5 mg of Coumadin that evening. White count has been slowly increasing to 18.6,
pancultures were completed and Vanco/Zosyn started empirically. No clear source of infection. He was transfused 1 unit of packed red blood cells for hemoglobin of 8.0 on postop day 11 INR 3.1 Coumadin is held. Hemoglobin stable at 9.5. General
surgery consult for sacral DTI, continue Santyl twice daily. On postop day 12 he continues to make good progress antibiotics are continued his white count remains elevated at 20.8. Continue to monitor closely inpatient. On postop day 13 INR is
3.56 Coumadin remains on hold, white count has come down to 17.1 and IV antibiotics converted to oral Augmentin x 10-day course. Blood and urine cultures were negative, sputum culture positive for E. coli. On postop day 14 hyponatremia improving
with fluid restriction, FILM PRINTER recommends VSE. INR 3.1, Coumadin remains on hold. On postop day 15 patient remains hemodynamically stable with good vitals. INR 2.85, held Coumadin again today recommend resuming with INR check on 08/29 around 5 mg
daily. INR goal 2.0-2.5 for aortic mechanical valve plus Plavix for recent stent (08/13/24). Video barium swallow demonstrated some silent aspiration with consecutive sips, per speech pathologist he can continue with thin liquids and regular solids
with strict aspiration precautions. He will continue to work with speech at [place]. Patient was discharged to [facility] for continued physical occupational and speech therapy. All home medication changes as listed below.
Discharge Plan
-
Patient Disposition: Acute Rehab Facility
Discharge Diagnosis/Procedures: DE LOS SANTOS Dissection/emergent CABGx1
Condition: Fair
Diet: Low Cholesterol, Low Sodium and Diabetic, Carb Controlled
Additional Diets: strict aspiration precautions; single sips only, but OK for regular consistency with thin liquids (see barium swallow eval 08/28); 1500ml Fluid restriction
Activity: No strenuous activity
Driving Restrictions: Not until seen by your Dr
Bathing Restrictions: OK to Shower
Blood Work: check INR 08/29 (coumadin held due to supratherapeutic INR)-- continue INR checks as needed for goal 2.0-2.5
Others Tests: Your follow-up left groin arterial ultrasound is scheduled on 09/30/2024 at 9 AM here at [facility]
Other Services: Cardiac Rehab
Wound Care: left groin lenore to be removed on 09/03
Specialty Instructions: Weigh Daily- Call MD for wt gain/loss 3 lbs overnight/5 lbs in 1 week
Activity Restrictions/Additional Instructions:
ACTIVITY:
-No strenuous activity: no heavy lifting, pushing, pulling anything over 15 pounds for one month
-continue to use stairs as tolerated
DRIVING RESTRICTIONS:
-No driving until approved by your surgeon
WOUND CARE:
Wound Care Instructions
Sacrum-clean with Vashe wound cleanser, no sting barrier wipe to surrounding skin, Santyl ointment, cover with silicone foam or adaptic/ABD pad secured with non irritating tape (i.e. silicone or Medipore), change bid and prn loosened dressing (add
alginate prior to foam/ABD pad prn large amount of drainage).
L great toe tip ulcer-swab with no sting barrier wipe daily. If opens or drains, clean with saline and apply cover dressing daily (i.e. Bandaid, adaptic/gauze).
Air mattress
Turning schedule
Elevate heels off bed with pillow/s
Bariatric air chair cushion.
Follow up at wound care center call for an appointment.
Left groin wound care: Continue ABD/dry dressings daily and PRN as liquefied hematoma drains. Every other staple removed on 08/28 for continued evacuation of wound. Remove remaining lenore around 09/03/24.
RLE thigh hematoma: continue warm compress if needed, boris wrap for comfort if needed.
DIET:
-continue a low fat/low cholesterol diet.
-IF you are diabetic, continue carb controlled diet.
CARDIAC REHAB:
-Please make appointment to start in 5-6 weeks with your local hospital program. (See Cardiac Rehabilitation Discharge Booklet).
SPECIALTY INSTRUCTIONS:
-Weigh yourself daily. Call your physician for any weight gain/loss of 3 lbs overnight or 5 lbs in one week.
-REPORT any clicking noise or uneven appearance of your sternum to your surgeon immediately.
-If you smoke, you are instructed to quit. The [place] smoking hotline phone number is [phone]
Referrals:
[facility] [Other]
Kyrie Asher MD [Family Provider] - in one to two months
Taryn Martin CRNP [Specified Professional Personl] - 09/24/24 10:00 am
Cleveland Benson MD [Active] - 10/06/24 3:45 pm
Patrice Delatorre MD [Active] - 09/09/24 3:00 pm
Prescriptions:
New
amoxicillin-pot clavulanate 875-125 mg Tablet
1 tab PO Q12 Qty: 0 0RF
Rx Instructions:
through 09/05 (total 10 days)
ferrous sulfate [FeroSul] 325 mg (65 mg iron) Tablet
325 mg PO DAILY Qty: 0 0RF
amiodarone 200 mg Tablet
200 mg PO DAILY Qty: 0 0RF
tamsulosin 0.4 mg Capsule
0.4 mg PO DAILY Qty: 0 0RF
bumetanide 2 mg Tablet
2 mg PO DAILY Qty: 0 0RF
alprazolam 0.5 mg Tablet
0.5 mg PO Q6HPRN PRN (Reason: anxiety) Qty: 20 0RF
gabapentin 100 mg Capsule
100 mg PO TID Qty: 0 0RF
pantoprazole 40 mg Tablet,Delayed Release (Dr/Ec)
40 mg PO DAILY Qty: 0 0RF
melatonin 5 mg Tablet
5 mg PO HSPRN PRN (Reason: insomnia) Qty: 0 0RF
collagenase clostridium histo. 250 unit/gram Ointment
1 applic topical BID Qty: 0 0RF
ascorbic acid (vitamin C) [Vitamin C] 500 mg Tablet
500 mg PO DAILY Qty: 0 0RF
insulin aspart U-100 100 unit/mL (3 mL) Insulin Pen
14 unit SC AC Qty: 0 0RF
insulin glargine [Lantus Solostar U-100 Insulin] 100 unit/mL (3 mL) insulin pen
21 unit SC HS Qty: 15 0RF
dapagliflozin propanediol 10 mg Tablet
10 mg PO DAILY Qty: 0 0RF
Continued
coenzyme T01-sakhkmp E [Co Q-10 (with Vit E)] 1 EACH capsule
1 ea PO HS
cyanocobalamin (vitamin B-12) 1,000 MCG tablet
1,000 mcg PO QPM
acetaminophen [Tylenol Extra Strength] 500 MG tablet
1,000 mg PO Q6HPRN PRN (Reason: mild pain)
cholecalciferol (vitamin D3) 1,000 UNITS tablet
1,000 units PO QPM
therapeutic multivitamin Tablet
1 tab PO DAILY
fluticasone propionate 50 mcg/actuation [place],Suspension
2 spray INTRANASAL BID
ezetimibe [Zetia] 10 mg Tablet
10 mg PO QPM
atorvastatin 40 mg Tablet
40 mg PO QPM
lisinopril 2.5 mg Tablet
2.5 mg PO DAILY Qty: 30 0RF
clopidogrel 75 mg Tablet
75 mg PO DAILY Qty: 30 0RF
Changed
warfarin [Jantoven] 5 MG tablet
5 mg PO DIRECTED Qty: 0 0RF
Rx Instructions:
recommend INR check on 08/29 and resume at 5mg daily as directed by INR (Goal 2.0-2.5)
metoprolol succinate 25 mg Tablet Extended Release 24 Hr
12.5 mg PO DAILY Qty: 30 0RF
Held
Trulicity 4.5 mg/0.5 mL Pen Injector
4.5 mg SC BAL
Hold Instructions: hold until instructed by your doctor
Rx Instructions:
hold until instructed by your doctor
Discontinued
warfarin 5 mg Tablet
10 mg PO .SUTUSAT@1800
Jardiance 25 mg Tablet
25 mg PO QPM
nitroglycerin 0.4 mg Tablet, Sublingual
0.4 mg SUBLINGUAL Q5-15M PRN (Reason: chest pain)
Rx Instructions:
give at stress test
Discharge Orders:
Discharge Patient (As Directed); Ordered 08/28/24
Ordered By: Lali Maier
Care Plan Goals
Care Plan Goals:
Problem: Readiness for enhanced knowledge related to diagnosis and treatment plan
Goal: Understand your diagnosis and treatment plan needs, including medications if applicable.
Instructions: Know your diagnosis, underlying causes and treatment plan options, including medications if applicable. Consult with your health care team to learn about your diagnosis and treatment plan, including medications if applicable.
Discharge Date and Time
Discharge Date/Time: 08/28/24 15:00
Print Language: RWANDAN
--- NOTE | 2024-08-28 11:47 | W.PN.CD ---
Today's Communication / Plan
-
Swallow precautions.
Restart warfarin at 2.5 mg daily due to use of amiodarone (previous dose 5 mg daily). Goal INR 2.5-3.5.
Discharge to rehab pending.
Impression / Plan
-
Impression/Plan: 74 y/o male with DM2, HTN, HLD, severe s/p mechanical SAVR and multivessel CAD s/p prior CABG (DE LOS SANTOS to LAD, sequential SVG to OM to RPDA) with prior PCI to the mid-LAD + LAD/DE [place] SANTOS anastamosis, admitted after PCI to ISR lesions
was complicated by DE [place] SANTOS dissection requiring emergent re-operation with SVG to LAD.
#CAD
-Cath showed an 80% ISR lesion in the LAD/DE [place] SANTOS stent as well as a 90% proximal stent edge lesion, patent sequential SVG.
-PCI performed on the 80% ISR lesion (Xience Skypoint 2.25 x 18 ELLIOTT, post dilated with a 2.75 NCB in the overlap) and the 90% proximal stent edge lesion (Xience Skypoint 3.0 x 26 ELLIOTT, post dilated with a 3.0 NCB) with reduction in stenoses to 0%.
-At the end of the procedure, the lesion could not be rewired after pulling back due to tension on the balloon. Repeat angiography showed spiral dissection of the DE LOS SANTOS graft, which could not be re-wired.
-PCI of the osage LAD was attempted, but the lesion could not be wired.
-The patient was taken for emergent CABG.
#CABG/cardiogenic shock resolved
-Acute. EF post op 40-45%
-Repeat CABG (SVG to LAD), with Dr. Delatorre, 08/13/2024.
-CABG was complicated by RV laceration by a retained sternal wire with progressive RV disruption medial to the anastomosis, requiring extensive surgical repair and emergent ECMO cannulation.
-Chest was left open at the end of the surgery, back to OR 08/15/24 for mediastinal exploration , washout and closure
-Vascular surgery was called into the OR and performed primary repair of the peripheral cannulation site.
-Extubated 08/17/24.
-Tolerating metoprolol succinate 12.5 mg BID.
#AF with RVR:
-New onset resolved on amiodarone, tolerating additional metoprolol.
-INR now therapeutic
NSVT:
-Stable.
-Amiodarone.
Dizziness
-resolved
Elevated leukocytosis
-infectious workup ordered --> unremarkable
-sacral decubitus
-improving now off abx
#Mechanical AVR
-Chronic, stable.
-INR now therapeutic
#HTN
-Chronic, borderline hypotension.
-Tolerating metoprolol.
#HLD
-Chronic.
-Continue atorvastatin.
#DM2
-Chronic.
-Insulin gtt per protocol.
Subjective/Interval History:
Some silent aspiration on swallow study.
Recommending aspiration precautions (sitting up while eating, etc).
Rehab placement pending.
DATA:
Intraop HAILEY:
CONCLUSIONS
Mild Global hypokinesis with akinesis of the apical septal wall. LVEF is 40-
45% by visual inspection.
A well-seated and properly functioning mechanical aortic prosthesis is seen.
The mitral valve is heavily calcified without stenosis. Mild regurgitation is
seen.
Mild tricuspid regurgitation.
Grade III atheromatous disease of the arch and descending thoracic aorta.
Cardiac catheterization/PCI, 08/13/2024:
CONCLUSIONS
1. Right dominant circulation with chronic total occlusion of the RCA, diffusely diseased and calcified left main coronary artery, a chronically totally occluded circumflex and a diffusely diseased proximal LAD with a CARD TABLE ATTENDANT of the mid LAD status post
prior bypass (DE LOS SANTOS to LAD, sequential SVG to OM to RPDA) with prior PCI of de darrick mid LAD disease in the mid LAD extending into the DE LOS SANTOS anastomosis, now with a 90% stent edge lesion, haziness at the distal stent edge and an 80% ISR lesion in the
distal third of the stent.
2. Status post successful PCI of the distal stent edge haziness and 80% ISR (Xience Skypoint 2.25 x 18 ELLIOTT, postdilated with a 2.75 NC balloon and the stent overlap section) with reduction in stenosis to 0%, maintaining REINALDO-3 flow.
3. Status post successful PCI of the 90% proximal stent edge lesion into the DE LOS SANTOS graft (Xience Skypoint 3.0 x 28 ELLIOTT, postdilated with a 3.0 NC balloon) with reduction in stenosis to 0%, subsequently complicated by spiral dissection of the DE LOS SANTOS
graft.
4. Unsuccessful rewiring of the dissected DE LOS SANTOS graft with propagation.
5. Unsuccessful wiring of the osage LAD.
6. Given the compromise of the DE LOS SANTOS flow, inability to successfully rewire the DE LOS SANTOS and inability to open the osage artery, CT surgery was called to bedside. The patient's films were reviewed and the situation assessed. After it was clear that
the osage LAD circulation was not amenable to PCI, the decision was made to take the patient for emergent bypass.
Physical Exam
Vital Signs/Labs
Vital Signs
Temp Pulse Resp BP Pulse Ox
36.9 C 62 16 103/54 97
08/28/24 10:53 08/28/24 11:00 08/28/24 10:53 08/28/24 10:53 08/28/24 10:53
08/26/24 08/27/24 08/28/24
11:59 11:59 11:59
Actual Weight 98.1 kg 97.4 kg 96 kg
08/28/24 02:45
08/27/24 04:11
PT 30.3 Sec (11.4-14.6) H 08/28/24 02:45
INR 2.85 08/28/24 02:45
APTT 100.7 Sec (23.4-35.0) H 08/23/24 04:17
Magnesium 2.2 mg/dl (1.6-2.3) 08/26/24 03:36
Triglycerides 49 mg/dl (10-149) 08/13/24 18:21
Physical Exam
Constitutional: No acute distress and Comfortable
EENT: Anicteric and Moist mucous membranes
Cardiovascular: Rhythm & rate is regular, JVD pressure is normal, Pedal edema present, S1S2 is normal (S2 is crisp and mechanical.) and Murmur/rub/gallop absent
Respiratory: Respiratory effort normal, Lungs clear to auscul., Wheeze Absent, Crackles Absent and Rhonchi Absent
GI: Soft, Distention absent, Flat, Non tender and Normal bowel sounds
Neuro/Psych: AO x 3
Data Reviewed
-
Date of Service: August 28, 2024
Medical Decision Making: Reviewed Test Results, Independent Historian Assessment and Test Interpretation
EKG: Tracing Personally Visualized and interpreted and Report Reviewed by me
Echo: Report Reviewed by me
X-Ray/CT/US/MRI/NUC/PET: Image Personally Visualized and interpreted and Report Reviewed by me
Medical Tests (PFT, Pathology etc): Image Personally Visualized and interpreted and Report Reviewed by me
Labs: Labs Reviewed by me
Old Records: Reviewed
[2024-08-28 11:51] LABS: Glucose - Point of Care 199 mg/dl (70-99)
[2024-08-28] MEDS: NOVOLOG FLEXPEN 14 UNITS SC (11:52)
[2024-08-28] MEDS: NOVOLOG FLEXPEN-LOW RESISTANCE 1 UNITS SC (11:53)
[2024-08-28] MEDS: SANTYL OINTMENT 1 APPLIC TOPICAL (11:54)
--- NOTE | 2024-08-28 12:10 | CM ---
CM following for DC planning needs.
Plan for DC today to [place]; per CT Surg, patient is medically stable for DC.
Obtained approval for x5 days of IP rehab level of care; [id number], NRD 09/01. Auth # provided to Mohan Maloney.
Met w/ patient/ spouse at bedside. Both are aware/agreeable to plan for transfer to [place].
Plan: [place] today
RN report- [phone]
[2024-08-28] MEDS: SENOKOT-S PO (13:10)
--- NOTE | 2024-08-28 14:15 | CHAP ---
Fr. Thompson Gibbs of [facility] in [place] gave [place] and his family Holy Communion.
--- NOTE | 2024-08-28 14:16 | PTCARENOTE ---
Pt received this am sitting oob in the chair. Uses walker to go the the bathroom and ambulate in the room. Left groin dressing changed for small amount of bloody drainage. CT PA removed several lenore and redressed. Hematoma remains at left
incision site. Aquacell dressing removed from sternal incision. Incision clean, dry and well approximated. Pt discharged to [facility] at 1425. Report called to RN receiving pt.
== END 2024-08-28 15:00 | DRG 907 ==
LOC: IVU 17:48
PROVIDERS: Anesthesiology; Clinical Nurse Specialist Acute Care; Internal Medicine Cardiovascular Disease; Nurse Practitioner; Physician Assistant Medical; ADMITTING PHYSICIAN Thoracic Surgery (Cardiothoracic Vascular Surgery); CONSULT PHYSICIAN Internal Medicine Critical Care Medicine; CONSULT PHYSICIAN Physical Medicine & Rehabilitation; CONSULT PHYSICIAN Surgery; FAMILY PHYSICIAN Family Medicine
PROC: 021009W Bypass Coronary Artery, One Artery from Aorta with Autologous Venous Tissue, Open Approach (ICD-10-PCS; 2024-08-13)
PROC: 06BP4ZZ Excision of Right Saphenous Vein, Percutaneous Endoscopic Approach (ICD-10-PCS; 2024-08-13)
PROC: 30233K1 Transfusion of Nonautologous Frozen Plasma into Peripheral Vein, Percutaneous Approach (ICD-10-PCS; 2024-08-13)
PROC: 5A1945Z Respiratory Ventilation, 24-96 Consecutive Hours (ICD-10-PCS; 2024-08-13)
PROC: 02NN0ZZ Release Pericardium, Open Approach (ICD-10-PCS; 2024-08-13)
PROC: 02Q Heart and Great Vessels, Repair (ICD-10-PCS; 2024-08-13)
PROC: 30233R1 Transfusion of Nonautologous Platelets into Peripheral Vein, Percutaneous Approach (ICD-10-PCS; 2024-08-13)
PROC: B2131ZZ Fluoroscopy of Multiple Coronary Artery Bypass Grafts using Low Osmolar Contrast (ICD-10-PCS; 2024-08-13)
PROC: B2181ZZ Fluoroscopy of Left Internal Mammary Bypass Graft using Low Osmolar Contrast (ICD-10-PCS; 2024-08-13)
PROC: 4A023N7 Measurement of Cardiac Sampling and Pressure, Left Heart, Percutaneous Approach (ICD-10-PCS; 2024-08-13)
PROC: B2111ZZ Fluoroscopy of Multiple Coronary Arteries using Low Osmolar Contrast (ICD-10-PCS; 2024-08-13)
PROC: B24BZZ4 Ultrasonography of Heart with Aorta, Transesophageal (ICD-10-PCS; 2024-08-13)
PROC: 30233N1 Transfusion of Nonautologous Red Blood Cells into Peripheral Vein, Percutaneous Approach (ICD-10-PCS; 2024-08-13)
PROC: 0BH17EZ Insertion of Endotracheal Airway into Trachea, Via Natural or Artificial Opening (ICD-10-PCS; 2024-08-13)
PROC: 5A1221Z Performance of Cardiac Output, Continuous (ICD-10-PCS; 2024-08-13)
PROC: 027135Z Dilation of Coronary Artery, Two Arteries with Two Drug-eluting Intraluminal Devices, Percutaneous Approach (ICD-10-PCS; 2024-08-13)
PROC: 0WJC0ZZ Inspection of Mediastinum, Open Approach (ICD-10-PCS; 2024-08-15)
DX: I97.51 Accidental puncture and laceration of a circulatory system organ or structure during a circulatory system procedure (principal); I25.42 Coronary artery dissection; L89.153 Pressure ulcer of sacral region, stage 3; J98.59 Other diseases of mediastinum, not elsewhere classified; J95.821 Acute postprocedural respiratory failure; T81.11XA Postprocedural cardiogenic shock, initial encounter; J95.2 Acute pulmonary insufficiency following nonthoracic surgery; J15.5 Pneumonia due to Escherichia coli; I50.42 Chronic combined systolic (congestive) and diastolic (congestive) heart failure; I31.0 Chronic adhesive pericarditis; D68.9 Coagulation defect, unspecified; D62 Acute posthemorrhagic anemia; N17.9 Acute kidney failure, unspecified; E87.1 Hypo-osmolality and hyponatremia; L76.32 Postprocedural hematoma of skin and subcutaneous tissue following other procedure; T82.855A Stenosis of coronary artery stent, initial encounter; J98.11 Atelectasis; I47.20 Ventricular tachycardia, unspecified; I25.118 Atherosclerotic heart disease of native coronary artery with other forms of angina pectoris; I25.10 Atherosclerotic heart disease of native coronary artery without angina pectoris; M48.061 Spinal stenosis, lumbar region without neurogenic claudication; G47.33 Obstructive sleep apnea (adult) (pediatric); I11.0 Hypertensive heart disease with heart failure; Y83.1 Surgical operation with implant of artificial internal device as the cause of abnormal reaction of the patient, or of later complication, without mention of misadventure at the time of the procedure; Y84.0 Cardiac catheterization as the cause of abnormal reaction of the patient, or of later complication, without mention of misadventure at the time of the procedure; I25.82 Chronic total occlusion of coronary artery; R31.0 Gross hematuria; E11.65 Type 2 diabetes mellitus with hyperglycemia; I48.91 Unspecified atrial fibrillation; D69.59 Other secondary thrombocytopenia; E87.6 Hypokalemia; N99.0 Postprocedural (acute) (chronic) kidney failure; D72.829 Elevated white blood cell count, unspecified; E11.36 Type 2 diabetes mellitus with diabetic cataract; E11.40 Type 2 diabetes mellitus with diabetic neuropathy, unspecified; E78.00 Pure hypercholesterolemia, unspecified; E86.1 Hypovolemia; E87.70 Fluid overload, unspecified; R10.13 Epigastric pain; E83.41 Hypermagnesemia; E87.5 Hyperkalemia; I25.2 Old myocardial infarction; Z79.01 Long term (current) use of anticoagulants; Z79.02 Long term (current) use of antithrombotics/antiplatelets; Z79.82 Long term (current) use of aspirin; Z79.84 Long term (current) use of oral hypoglycemic drugs; Z79.899 Other long term (current) drug therapy; Z82.49 Family history of ischemic heart disease and other diseases of the circulatory system; Z95.1 Presence of aortocoronary bypass graft; Z95.2 Presence of prosthetic heart valve; Z95.5 Presence of coronary angioplasty implant and graft
CPT/HCPCS: 35226; 39000; 71045; 71046; 74230; 80048; 80053; 80202; 81003; 81015; 82248; 82330; 82565; 82805; 82810; 82947; 82962; 83036; 83605; 83735; 84100; 84132; 84134; 84302; 84478; 84520; 85014; 85018; 85025; 85027; 85049; 85347; 85384; 85610; 85730; 86850; 86900; 86901; 86920; 87040; 87070; 87077; 87186; 87205; 92526; 92610; 92611; 93005; 93312; 93320; 93325; 93455; 93926; 94002; 94003; 94640; 97110; 97116; 97163; 97167; 97530; 97535; C1713; C1725; C1768; C1769; C1874; C1887; C1894; C9600; C9604; P9012; P9016; P9045; P9047; P9059; P9073; Q9967

== ENCOUNTER → 2024-09-09 08:13 | Outpatient (REF) | payer OTHER, SELFPAY | LOC: WOUND 08:13 | PROVIDERS: ATTENDING PHYSICIAN Surgery; FAMILY PHYSICIAN Family Medicine | DX: L89.154 Pressure ulcer of sacral region, stage 4 (principal); I73.9 Peripheral vascular disease, unspecified; E11.65 Type 2 diabetes mellitus with hyperglycemia; I10 Essential (primary) hypertension; Z95.2 Presence of prosthetic heart valve; Z95.1 Presence of aortocoronary bypass graft; Z79.01 Long term (current) use of anticoagulants | CPT/HCPCS: 11043; 99204 ==

== ENCOUNTER → 2024-09-16 10:21 | Outpatient (REF) | payer OTHER, SELFPAY | LOC: WOUND 10:21 | PROVIDERS: ATTENDING PHYSICIAN Surgery; FAMILY PHYSICIAN Family Medicine | DX: L89.154 Pressure ulcer of sacral region, stage 4 (principal); T81.31XA Disruption of external operation (surgical) wound, not elsewhere classified, initial encounter; S31.109A Unspecified open wound of abdominal wall, unspecified quadrant without penetration into peritoneal cavity, initial encounter; S81.001A Unspecified open wound, right knee, initial encounter; Z79.01 Long term (current) use of anticoagulants; Z95.1 Presence of aortocoronary bypass graft; I73.9 Peripheral vascular disease, unspecified; E11.65 Type 2 diabetes mellitus with hyperglycemia; I10 Essential (primary) hypertension; Z95.2 Presence of prosthetic heart valve; Y83.8 Other surgical procedures as the cause of abnormal reaction of the patient, or of later complication, without mention of misadventure at the time of the procedure; X58.XXXA Exposure to other specified factors, initial encounter | CPT/HCPCS: 11043; 99213 ==

== ENCOUNTER → 2024-09-23 10:52 | Outpatient (REF) | payer OTHER, SELFPAY | LOC: WOUND 10:52 | PROVIDERS: ATTENDING PHYSICIAN Surgery; FAMILY PHYSICIAN Family Medicine | DX: T81.31XA Disruption of external operation (surgical) wound, not elsewhere classified, initial encounter (principal); L89.154 Pressure ulcer of sacral region, stage 4; I10 Essential (primary) hypertension; E78.2 Mixed hyperlipidemia; N40.1 Benign prostatic hyperplasia with lower urinary tract symptoms; E11.65 Type 2 diabetes mellitus with hyperglycemia; S81.001A Unspecified open wound, right knee, initial encounter; Z79.01 Long term (current) use of anticoagulants; Z79.51 Long term (current) use of inhaled steroids; I73.9 Peripheral vascular disease, unspecified; Z95.2 Presence of prosthetic heart valve; Y83.8 Other surgical procedures as the cause of abnormal reaction of the patient, or of later complication, without mention of misadventure at the time of the procedure; X58.XXXA Exposure to other specified factors, initial encounter | CPT/HCPCS: 36415; 72190; 80053; 80061; 83036; 84443; 85025; 99214; G0103 ==

== ENCOUNTER 2024-09-29 14:24 | Outpatient (RCR) | payer OTHER, SELFPAY | END 2024-09-29 23:59 | disposition home or self-care (01) | LOC: ROT 14:24 | PROVIDERS: ATTENDING PHYSICIAN Physical Medicine & Rehabilitation; FAMILY PHYSICIAN Family Medicine | DX: R54 Age-related physical debility (principal); R26.2 Difficulty in walking, not elsewhere classified; R29.898 Other symptoms and signs involving the musculoskeletal system; Z74.09 Other reduced mobility; I25.700 Atherosclerosis of coronary artery bypass graft(s), unspecified, with unstable angina pectoris; R26.89 Other abnormalities of gait and mobility; Z95.1 Presence of aortocoronary bypass graft | CPT/HCPCS: 97110; 97112; 97163; 97167; 97530; 97535 ==

== ENCOUNTER → 2024-09-30 10:48 | Outpatient (REF) | payer OTHER, SELFPAY | LOC: WOUND 10:48 | PROVIDERS: ATTENDING PHYSICIAN Surgery; FAMILY PHYSICIAN Family Medicine | DX: L89.154 Pressure ulcer of sacral region, stage 4 (principal); T81.31XA Disruption of external operation (surgical) wound, not elsewhere classified, initial encounter; S31.109A Unspecified open wound of abdominal wall, unspecified quadrant without penetration into peritoneal cavity, initial encounter; S81.001A Unspecified open wound, right knee, initial encounter; Z79.01 Long term (current) use of anticoagulants; Z95.1 Presence of aortocoronary bypass graft; I73.9 Peripheral vascular disease, unspecified; E11.65 Type 2 diabetes mellitus with hyperglycemia; I10 Essential (primary) hypertension; Z95.2 Presence of prosthetic heart valve; Y83.8 Other surgical procedures as the cause of abnormal reaction of the patient, or of later complication, without mention of misadventure at the time of the procedure; X58.XXXA Exposure to other specified factors, initial encounter | CPT/HCPCS: 11042 ==

== ENCOUNTER → 2024-10-13 12:02 | Outpatient (REF) | payer OTHER, SELFPAY ==
[2024-10-13 12:37] LABS: INR 2.62
== END ==
LOC: REG 12:02
PROVIDERS: ATTENDING PHYSICIAN Internal Medicine Cardiovascular Disease; FAMILY PHYSICIAN Family Medicine
DX: Z95.2 Presence of prosthetic heart valve (principal)
CPT/HCPCS: 36415; 85610

== ENCOUNTER → 2024-10-14 09:41 | Outpatient (REF) | payer OTHER, SELFPAY | LOC: RAD 09:41 | PROVIDERS: ATTENDING PHYSICIAN Surgery Vascular Surgery; FAMILY PHYSICIAN Family Medicine | DX: I73.9 Peripheral vascular disease, unspecified (principal) | CPT/HCPCS: 93922; 93925 ==

== ENCOUNTER → 2024-10-14 10:48 | Outpatient (REF) | payer OTHER, SELFPAY | LOC: WOUND 10:48 | PROVIDERS: ATTENDING PHYSICIAN Surgery; FAMILY PHYSICIAN Family Medicine | DX: L89.154 Pressure ulcer of sacral region, stage 4 (principal); T81.31XA Disruption of external operation (surgical) wound, not elsewhere classified, initial encounter; S31.109A Unspecified open wound of abdominal wall, unspecified quadrant without penetration into peritoneal cavity, initial encounter; S81.001A Unspecified open wound, right knee, initial encounter; Z79.01 Long term (current) use of anticoagulants; Z95.1 Presence of aortocoronary bypass graft; I73.9 Peripheral vascular disease, unspecified; E11.65 Type 2 diabetes mellitus with hyperglycemia; I10 Essential (primary) hypertension; Z95.2 Presence of prosthetic heart valve; Y83.8 Other surgical procedures as the cause of abnormal reaction of the patient, or of later complication, without mention of misadventure at the time of the procedure; X58.XXXA Exposure to other specified factors, initial encounter | CPT/HCPCS: 11042 ==

== ENCOUNTER → 2024-10-28 10:50 | Outpatient (REF) | payer OTHER, SELFPAY | LOC: WOUND 10:50 | PROVIDERS: ATTENDING PHYSICIAN Surgery; FAMILY PHYSICIAN Family Medicine | DX: L89.154 Pressure ulcer of sacral region, stage 4 (principal); T81.31XA Disruption of external operation (surgical) wound, not elsewhere classified, initial encounter; S31.109A Unspecified open wound of abdominal wall, unspecified quadrant without penetration into peritoneal cavity, initial encounter; S81.001A Unspecified open wound, right knee, initial encounter; Z79.01 Long term (current) use of anticoagulants; Z95.1 Presence of aortocoronary bypass graft; I73.9 Peripheral vascular disease, unspecified; E11.65 Type 2 diabetes mellitus with hyperglycemia; I10 Essential (primary) hypertension; Z95.2 Presence of prosthetic heart valve; Y83.8 Other surgical procedures as the cause of abnormal reaction of the patient, or of later complication, without mention of misadventure at the time of the procedure; Y84.8 Other medical procedures as the cause of abnormal reaction of the patient, or of later complication, without mention of misadventure at the time of the procedure | CPT/HCPCS: 11042 ==

== ENCOUNTER → 2024-10-29 12:04 | Outpatient (REF) | payer OTHER, SELFPAY ==
[2024-10-29 12:41] LABS: INR 1.27; PT 16.4 Sec (11.4-14.6)
== END ==
LOC: REG 12:04
PROVIDERS: ATTENDING PHYSICIAN Internal Medicine Cardiovascular Disease; FAMILY PHYSICIAN Family Medicine
DX: Z95.2 Presence of prosthetic heart valve (principal)
CPT/HCPCS: 36415; 85610

== ENCOUNTER 2024-10-29 14:52 | Outpatient (RCR) | payer OTHER, SELFPAY | END 2024-10-29 23:59 | disposition home or self-care (01) | LOC: ROT 14:52 | PROVIDERS: ATTENDING PHYSICIAN Physical Medicine & Rehabilitation; FAMILY PHYSICIAN Family Medicine | DX: R26.2 Difficulty in walking, not elsewhere classified; R29.898 Other symptoms and signs involving the musculoskeletal system; Z74.09 Other reduced mobility; R54 Age-related physical debility; Z73.6 Limitation of activities due to disability; I25.700 Atherosclerosis of coronary artery bypass graft(s), unspecified, with unstable angina pectoris; R26.89 Other abnormalities of gait and mobility | CPT/HCPCS: 97110; 97112; 97116; 97530; 97535 ==

== ENCOUNTER → 2024-11-06 13:10 | Outpatient (REF) | payer OTHER, SELFPAY ==
[2024-11-06 15:39] LABS: INR 5.63; PT 50.8 Sec (11.4-14.6)
== END ==
LOC: REG 13:10
PROVIDERS: ATTENDING PHYSICIAN Internal Medicine Cardiovascular Disease
DX: I48.0 Paroxysmal atrial fibrillation (principal)
CPT/HCPCS: 36415; 85610

== ENCOUNTER → 2024-11-07 10:34 | Outpatient (REF) | payer OTHER, SELFPAY ==
[2024-11-07 11:47] LABS: INR 4.67; PT 43.4 Sec (11.4-14.6)
== END ==
LOC: REG 10:34
PROVIDERS: ATTENDING PHYSICIAN Internal Medicine Cardiovascular Disease
DX: I48.0 Paroxysmal atrial fibrillation (principal)
CPT/HCPCS: 36415; 85610

== ENCOUNTER → 2024-11-11 10:55 | Outpatient (REF) | payer OTHER, SELFPAY | LOC: WOUND 10:55 | PROVIDERS: ATTENDING PHYSICIAN Surgery; FAMILY PHYSICIAN Family Medicine | DX: L89.154 Pressure ulcer of sacral region, stage 4 (principal); T81.31XA Disruption of external operation (surgical) wound, not elsewhere classified, initial encounter; S81.001A Unspecified open wound, right knee, initial encounter; S31.109A Unspecified open wound of abdominal wall, unspecified quadrant without penetration into peritoneal cavity, initial encounter; Z79.01 Long term (current) use of anticoagulants; Z95.1 Presence of aortocoronary bypass graft; I73.9 Peripheral vascular disease, unspecified; E11.65 Type 2 diabetes mellitus with hyperglycemia; I10 Essential (primary) hypertension; Z95.2 Presence of prosthetic heart valve; Y83.8 Other surgical procedures as the cause of abnormal reaction of the patient, or of later complication, without mention of misadventure at the time of the procedure; X58.XXXA Exposure to other specified factors, initial encounter | CPT/HCPCS: 99213 ==

== ENCOUNTER 2024-11-12 14:09 | Outpatient (RCR) | payer OTHER, SELFPAY | END 2024-11-27 05:43 | disposition home or self-care (01) | LOC: ROT 14:09 | PROVIDERS: ATTENDING PHYSICIAN Physical Medicine & Rehabilitation; FAMILY PHYSICIAN Family Medicine | DX: R54 Age-related physical debility (principal); R26.2 Difficulty in walking, not elsewhere classified; R29.898 Other symptoms and signs involving the musculoskeletal system; Z74.09 Other reduced mobility; Z73.6 Limitation of activities due to disability; R26.89 Other abnormalities of gait and mobility; I25.700 Atherosclerosis of coronary artery bypass graft(s), unspecified, with unstable angina pectoris | CPT/HCPCS: 97110; 97112; 97530 ==

== ENCOUNTER 2024-11-16 13:37 | Inpatient (IN) | payer OTHER, SELFPAY ==
[2024-11-16] VITALS (10 sets, daily range): BP systolic 91–157; BP diastolic 57–96; BMI 28.1
[2024-11-16 11:26] LABS: % Basophils 0.4 % (0-2); % Eosinophils 0.5 % (0-6); % Immature Granulocytes 0.5 % (0-0.5); % Lymphocytes 16.4 % (20.5-51.1); % Monocytes 8.2 % (1.7-9.3); Absolute Eosinophils 0.1 10^3/uL (0-0.7); Absolute Immature Granulocytes 0.1 10^3/uL (0-0.05); Absolute Lymphocytes 1.8 10^3/uL (1.2-3.4); Absolute Monocytes 0.9 10^3/uL (0.1-0.6); Absolute Neutrophils 8.2 10^3/uL (1.4-6.5); Hematocrit 35.8 % (39.0-52.0); Hemoglobin 11.4 g/dL (13.0-18.0); Mean Corp Hgb Conc. 31.8 g/dL (33.0-37.0); Mean Corpuscular Hgb 26.8 pg (27.0-31.0); Mean Corpuscular Volume 84.2 fL (80.0-94.0); Mean Platelet Volume 9.6 fL (7.4-10.4); Nucleated Red Blood Cells % 0 % (-); Platelet Count 271 10^3/uL (130-400); Red Blood Cell Count 4.25 10^6/uL (4.70-6.10); Red Cell Dist. Width 16.4 % (11.5-14.5); White Blood Cell Count 11.1 10^3/uL (4.8-10.8)
[2024-11-16 11:35] LABS: INR 3.19; PT 32.5 Sec (11.4-14.6)
[2024-11-16 11:38] LABS: ALT (SGPT) 30 U/L (0-50); AST (SGOT) 37 U/L (17-59); Albumin 3.3 g/dl (3.5-5.0); Alkaline Phosphatase 148 U/L (38-126); Blood Urea Nitrogen 24 mg/dl (9-20); Calcium 8.8 mg/dl (8.4-10.2); Carbon Dioxide 30 mmol/L (22-30); Chloride 103 mmol/L (98-107); Glucose 157 mg/dl (70-99); Potassium 3.4 mmol/L (3.5-5.1); Sodium 139 mmol/L (135-145); Total Bilirubin 0.8 mg/dl (0.2-1.3); Total Protein 7.5 g/dl (6.3-8.2); eGFR > 60.00
--- NOTE | 2024-11-16 11:45 | ED.GENMED ---
Addendum entered and electronically signed by Corona Alvarez DO 11/16/24 16:00:
Update called the room nursing patient with shortness of breath desaturated to the high 80s placed on oxygen
Had just been started on vancomycin,
INR noted, EKG noted will check cardiac markers and chest x-ray hospitalist updated overtaxed
Original Note:
History of Present Illness
General
Chief Complaint: Post Operative Problem(s)
Source: patient, records, spouse and previous hospital records
Exam Limitations: none
Time Seen by Provider: 11/16/24 11:41
History of Present Illness
History of Present Illness:
Patient very pleasant 74-year-old male diabetic, status post bypass surgery about [address] Delatorre, has been dealing with a wound from his right calf graft site, followed from the wound care center Dr. Gonzales, not currently on
antibiotics few days he is felt fatigued redness warmth malodorous drainage saw Dr. Delatorre last week was recuperating okay apparently
Past History
Past History
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
ED Past Surgical History: Cardiac (CABG+Mechanical aortic valve replacement 2008) and Orthopedic
Social History
Tobacco: Non-smoker
Alcohol: None
Personal:
Living: with family
Employment: Employed
Family History
Family History: CAD
Phy Exam
Physical Exam
Physical Exam:
Physical Exam
General: Chronically ill male
Neck: No jaundice
Heart: Regular.
Lungs: no acute respiratory distress. clear bilaterally
Abdomen: Nontender
Neuro: alert and oriented. no focal neurological deficits
Skin: no rash
Psychiatric: well kept. interactive and cooperative
Extremities: Right lower extremity cellulitis with malodorous drainage quarter size linear open wound
Course
Orders/Labs/Results
Orders:
Orders
11/16/24 11:15
CMP [Comprehensive Metabolic Panel] Urgent
Complete Blood Count/With Diff Urgent
INR [Prothrombin Time] Urgent
11/16/24 11:56
Wound Dressing- Treatment ONCE
Location of Wound: leg
11/16/24 12:25
INFECTIOUS DISEASE CONSULT Routine
Consulting Provider: Sheryl Shin
Was physician already notified: Yes
11/16/24 13:07
Admit/Transfer Patient As Directed
Co-Sign Provider:
Level of Care: Inpatient admission
Assign to:: Telemetry
Physician / Group: nelly
Diagnosis: saphenous vein graft infection
Reason for Telemetry: Arrhythmia
Date to Stop Telemetry: 11/19/24
Time to Stop Telemetry: 11:00
Reason for Hospitalization: saphenous vein graft infection
Expected length of stay greater than two midnights?: Yes
ELOS- Estimated Length of Stay in days: 2
I certify the patient meets the requirements for IP care: Yes
Code Status As Directed
Resuscitation Status: Full Code
PRN Pain Medication Management As Directed
May give lesser potent ordered pain med per pt: Yes
preference::
Protocol:: Medication orders for pain may be administered in a
manner that supports deferring to patient preference
when the pt is:
- Requesting an ordered lesser potent pain medication.
Least to most potent pain medications are defined
as: acetaminophen < NSAID < tramadol < opioids
(morphine, oxycodone, hydromorphone).
- Requesting a lesser dose of the same medication IF
ORDERED.
- Requesting a less intrusive route of administration
if both routes are prescribed by the provider (PO <
IV).
11/16/24 13:31
* Blood Bank Products Routine
Blood Bank Products: *Fresh Frozen Plasma
Quantity: 2
Transfuse Today: Hold for OR
Is product needed for scheduled surgery?: Yes
Expected Surgery Date: TOMORROW
Reason: Other
Other reason: cardiothoracic surgery
11/16/24 14:22
Type And Crossmatch [Type+Screen] Stat
Blood Culture Q30M
YE Source: Blood/Venous
Specimen Description:
Wound Culture [Wound/Abscess/Other Culture] Urgent
YE Source: Abscess
Specimen Description:
Date Specimen was Collected: 11/16/24
Time Specimen was Collected: 12:30
Comment: right middle leg
11/16/24 14:25
Blood Culture Q30M
YE Source: Blood/Venous
Specimen Description:
11/16/24 Dinner
2000 calorie (17 carb) Diabetic
At Your Request: Full Participation
11/17/24 Breakfast
NPO
Allow oral meds: Yes
Allow clear liquids: Sips of Clears
CMP [Comprehensive Metabolic Panel] IN AM
Complete Blood Count/With Diff IN AM
INR [Prothrombin Time] IN AM
11/18/24 06:00
CMP [Comprehensive Metabolic Panel] IN AM
Complete Blood Count/With Diff IN AM
INR [Prothrombin Time] IN AM
11/19/24 06:00
CMP [Comprehensive Metabolic Panel] IN AM
Complete Blood Count/With Diff IN AM
INR [Prothrombin Time] IN AM
11/19/24 11:00
DC Protocol for Telemetry ONCE
11/20/24 06:00
CMP [Comprehensive Metabolic Panel] IN AM
Complete Blood Count/With Diff IN AM
INR [Prothrombin Time] IN AM
11/21/24 06:00
CMP [Comprehensive Metabolic Panel] IN AM
Complete Blood Count/With Diff IN AM
INR [Prothrombin Time] IN AM
11/22/24 06:00
CMP [Comprehensive Metabolic Panel] IN AM
Complete Blood Count/With Diff IN AM
INR [Prothrombin Time] IN AM
11/23/24 06:00
CMP [Comprehensive Metabolic Panel] IN AM
Complete Blood Count/With Diff IN AM
INR [Prothrombin Time] IN AM
11/24/24 06:00
CMP [Comprehensive Metabolic Panel] IN AM
Complete Blood Count/With Diff IN AM
INR [Prothrombin Time] IN AM
11/25/24 06:00
CMP [Comprehensive Metabolic Panel] IN AM
Complete Blood Count/With Diff IN AM
INR [Prothrombin Time] IN AM
11/26/24 06:00
CMP [Comprehensive Metabolic Panel] IN AM
Complete Blood Count/With Diff IN AM
INR [Prothrombin Time] IN AM
Abnormal Lab Results
11/16/24
11:15
WBC 11.1 H 10^3/uL
(4.8-10.8)
RBC 4.25 L 10^6/uL
(4.70-6.10)
Hgb 11.4 L g/dL
(13.0-18.0)
Hct 35.8 L %
(39.0-52.0)
MCH 26.8 L pg
(27.0-31.0)
MCHC 31.8 L g/dL
(33.0-37.0)
RDW 16.4 H %
(11.5-14.5)
Abs Immat Gran (auto) 0.1 H 10^3/uL
(0-0.05)
Absolute Neuts (auto) 8.2 H 10^3/uL
(1.4-6.5)
Absolute Monos (auto) 0.9 H 10^3/uL
(0.1-0.6)
Lymphocytes % 16.4 L %
(20.5-51.1)
PT 32.5 H Sec
(11.4-14.6)
Potassium 3.4 L mmol/L
(3.5-5.1)
BUN 24 H mg/dl
(9-20)
Glucose 157 H mg/dl
(70-99)
Alkaline Phosphatase 148 H U/L
(38-126)
Albumin 3.3 L g/dl
(3.5-5.0)
11/16/24 12:58
11/16/24 12:58
Vital Signs
Initial and Last Documented VS:
Initial Vital Signs
Temp Pulse BP Pulse Ox
98.6 F 64 143/74 96
11/16/24 11:06 11/16/24 11:06 11/16/24 11:06 11/16/24 11:06
Last Documented Vital Signs
Temp Pulse BP Pulse Ox
98.6 F 64 143/74 96
11/16/24 11:06 11/16/24 11:06 11/16/24 11:06 11/16/24 11:06
MDM/Problems Addressed
Differential Diagnosis Includes:
Cellulitis abscess
MDM/Problems Addressed:
Wound drain
Chronic conditions affecting care: DM
Acute Exacerbation and/or Progression of Chronic Illness: DM
*Critical Care Note
Total Time (30-74mins, 75-104mins- exclusive of procedures): Not Applicable
Update Note
Update Note:
Update, looks like cellulitis possibly draining abscess, wound culture sent message sent to hospitalist CT surgery and ID for antibiotic reference and ultimate treatment decision although I do suspect he is going to require inpatient IV antibiotics
ED Attending Note
-
Portions of this chart may have been created with voice recognition software.� Occasional wrong word or��sound alike� substitutions may have occurred due to the inherent limitations of voice recognition software.
Discharge Plan
Departure
Patient Disposition: Admit
Date of Disposition: 11/16/24
Time of Disposition: 12:10
Admit to: Med/Surg
Presentation/result/management discussed w/ accepting MD/DO: Hospitalist
Patient with high blood pressure during this ER visit?: No
Condition: Fair
Discharge Problem:
Postoperative wound infection
Interventions
Interventions:
*Risk Screen - Suicide Last Done: 11/16/24 11:06
*General Assessment Last Done: 11/16/24 11:06
*ED- Fall Risk Assessment Last Done: 11/16/24 11:06
*ED COVID-19 Vaccine History Last Done: 11/16/24 11:06
--- NOTE | 2024-11-16 12:26 | HPS.HSE ---
Addendum entered and electronically signed by Leni Saba MD 11/16/24 18:44:
Patient developed chest pain and shortness of breath shortly after receiving vancomycin. No rash so doubt secondary to vancomycin. Check EKG which showed normal sinus rhythm without any notable ischemic changes. Troponin 0.016. Cardiac BNP of
3200. Chest x-ray showed moderate right pleural effusion. Suspect pleural effusion related to congestive heart failure versus related to recent CABG/chest washout. Unlikely to be secondary to pneumonia. Nevertheless did broaden antibiotics from
vancomycin to vancomycin plus Zosyn. Gave extra 40 IV Lasix, continue Bumex 2 mg twice daily. IR consulted for thoracentesis. Check echocardiogram.
Cardiothoracic surgery wants to check CT scan of his lower extremity to check for undrained fluid collection. Keep n.p.o. postmidnight for potential debridement. Hold Coumadin, recheck INR in the morning and may require Coumadin reversal if he
requires debridement.
Original Note:
Family Physician
-
Family Physician: Kyrie Asher
Chief Complaint
-
infection graft
History of Present Illness
74-year-old male past medical history of CAD status post CABG, aortic stenosis status post mechanical AVR, atrial fibrillation, CHF, hypertension, hyperlipidemia, type 2 diabetes, anemia, hyponatremia, sacral, right shoulder pressure ulcers, BPH,
obesity, who underwent CABG 12 weeks ago presenting with graft site infection. The area was red for few days but yesterday it started bleeding. He denies any fevers or chills.
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 He was coagulopathic requiring multiple transfusions, and was in cardiogenic shock requiring pressors.
He has had cough since being intubated at the time denies any shortness of breath. He denies any chest pain. Denies lower extremity edema.
His right groin hematoma has resolved. He has a left groin wound that has improved. He has a sacral wound that is being followed at wound care.
Denies smoking or alcohol use.
Medical History
Past Medical History
Past Medical History: Reports Other (CAD status post CABG, aortic stenosis status post mechanical AVR, atrial fibrillation, CHF, hypertension, hyperlipidemia, type 2 diabetes, anemia, hyponatremia, sacral, right shoulder pressure ulcers, BPH,
obesity, who underwent CABG 12 weeks ago)
Past Surgical History: Reports Other (Cardiac (CABG+Mechanical aortic valve replacement 2008) and Orthopedic)
Social History
Tobacco: Non-smoker
Alcohol: None
Drug: None
Family History
Family History: Not pertinent
Allergies / Home Medications
Allergies reflects when Allergies were last updated in [facility].
Home Medications with original date entered in [facility]
Allergy/Medication List:
Allergies
Allergy/AdvReac Type Severity Reaction Status Date / Time
levofloxacin [From Levaquin] Allergy Unknown Verified 11/16/24 11:08
rosuvastatin calcium Allergy Unknown Verified 11/16/24 11:08
[From Crestor]
simvastatin [From Zocor] Allergy MYALGIAS/leg Verified 11/16/24 11:08
cramping
Home Medications
coenzyme Q92-hhboeep E 100 mg-5 unit capsule (Co Q-10 (with Vit E)) 1 ea PO HS Supplement 01/04/15
cholecalciferol (vitamin D3) 25 mcg (1,000 unit) tablet 1,000 units PO QPM Supplement 08/26/18
atorvastatin 40 mg tablet 40 mg PO QPM High Cholesterol 04/18/24
dulaglutide 4.5 mg/0.5 mL subcutaneous pen injector (Trulicity) 4.5 mg SC BAL Diabetes 04/18/24
fluticasone propionate 50 mcg/actuation nasal spray,suspension 2 spray intranasal BID Allergies 04/18/24
collagenase clostridium histo. 250 unit/gram topical ointment 1 applic topical BID to sacral DTI #0 grams 08/28/24
Insulin Glargine Lantus [Lantus] 19 units As Directed mls/hr SC HS 09/15/24
acetaminophen 325 mg tablet 650 mg (2 x 325 mg) PO Q6HPRN PRN mild pain 30 days #100 tabs 09/15/24
alprazolam 0.5 mg tablet 0.5 mg PO Q6HPRN PRN anxiety 4 days #16 tabs 09/15/24
amiodarone 200 mg tablet 200 mg PO DAILY Arrhythmia 30 days #30 tabs 09/15/24
benzocaine 6 mg-menthol 10 mg lozenges (Chloraseptic Sore Throat) 1 whit PO Q4HPRN PRN cough 30 days #30 ea 09/15/24
bumetanide 2 mg tablet 2 mg PO DAILY Fluid retention/Swelling 30 days #30 tabs 09/15/24
clopidogrel 75 mg tablet 75 mg PO DAILY Blood clot prevention/tx/Afib #30 tabs 09/15/24
clotrimazole 1 % topical cream (Athlete's Foot (clotrimazole)) 1 applic topical BID Skin issues 30 days #50 grams 09/15/24
dapagliflozin propanediol 10 mg tablet 10 mg PO DAILY Heart disease/condition 30 days #30 tabs 09/15/24
dextromethorphan-guaifenesin 10 mg-100 mg/5 mL oral syrup 5 ml PO Q4HPRN PRN cough 30 days #100 mL 09/15/24
docusate sodium 100 mg capsule 100 mg PO BID Constipation 30 days #60 caps 09/15/24
ezetimibe 10 mg tablet (Zetia) 10 mg PO QPM High cholesterol 30 days #30 tabs 09/15/24
gabapentin 100 mg capsule 100 mg PO TID Pain 30 days #90 caps 09/15/24
loratadine 10 mg tablet 10 mg PO DAILY Cough 30 days #30 tabs 09/15/24
metoprolol succinate 25 mg tablet,extended release 24 hr 12.5 mg (1/2 x 25 mg) PO DAILY blood pressure #30 tabs 09/15/24
pantoprazole 40 mg tablet,delayed release 40 mg PO DAILY GERD #0 tabs 09/15/24
psyllium husk 3.4 gram oral powder packet (Metamucil Fiber Singles) 1 packet PO QPM Constipation 30 days #30 ea 09/15/24
sennosides 8.6 mg tablet (Francesca-xochitl) 17.2 mg (2 x 8.6 mg) PO NOON Constipation 30 days #60 tabs 09/15/24
sitagliptin phosphate 100 mg tablet (Januvia) 100 mg PO DAILY Diabetes 30 days #30 tabs 09/15/24
tamsulosin 0.4 mg capsule 0.4 mg PO DAILY Bladder/BPH 30 days #30 caps 09/15/24
warfarin 1 mg tablet 1 mg PO DAILY CABG, A-fib- daily dose will vary. May need 4mg #60 tabs 09/15/24
warfarin 5 mg tablet (Jantoven) 5 mg PO QPM Has 5mg already at home. 30 days #30 tabs 09/15/24
trazodone 50 mg tablet 25 mg (1/2 x 50 mg) PO HS PRN insomnia 30 days #30 tabs 09/16/24
Review of Systems
-
History Source: Patient
A 12 point ROS was completed and negative except as noted: Yes
Constitutional: Reports No Symptoms
EENT: Reports No Symptoms
Respiratory: Reports No Symptoms
Cardiac: Reports No Symptoms
Abdomen/GI: Reports No Symptoms
: Reports No Symptoms
Musculoskeletal: Reports No Symptoms
Skin: Reports See HPI
Neurological: Reports No Symptoms
Endocrine: Reports No Symptoms
Hematologic/Lymphatic: Reports No Symptoms
Psych: Reports No Symptoms
Physical Exam
Vital Signs
Vital Signs
Temp Pulse BP Pulse Ox
98.6 F 64 143/74 96
11/16/24 11:06 11/16/24 11:06 11/16/24 11:06 11/16/24 11:06
Physical Exam
General: Well Developed, Well Nourished and No Apparent Distress
HEENT: NormoCephalic, Moist mucous membranes and Atraumatic
Respiratory: Clear
Cardiac: S1/S2 and Regular Rhythm; No Murmur or Rub
GI: Soft, Non Tender, Non Distended and Normal Bowel Sounds; No Organomegaly
Rectal: Deferred by Provider
Musculoskeletal: No Clubbing, No Cyanosis and No Edema
Skin: Other (right calf redness and drainage ); No Rash
Neuro: Nonfocal/grossly intact
Laboratory Results
-
11/16/24 11:15
11/16/24 11:15
Laboratory Results
PT 32.5 Sec (11.4-14.6) H 11/16/24 11:15
INR 3.19 11/16/24 11:15
Total Bilirubin 0.8 mg/dl (0.2-1.3) 11/16/24 11:15
AST 37 U/L (17-59) 11/16/24 11:15
ALT 30 U/L (0-50) 11/16/24 11:15
Alkaline Phosphatase 148 U/L (38-126) H 11/16/24 11:15
Data Reviewed
-
Lab Data: Labs Reviewed by me
Old Records: Reviewed
Impression/Plan
-
IMPRESSION:
PLAN:
# Right lower extremity saphenous vein graft site infection
-Leukocytosis
-Wound culture, blood cultures
- Vancomycin
- ID consulted
- Cardiothoracic surgery consulted and they cleaned and wrapped
# Hypokalemia secondary to Bumex
- Replete potassium
CAD status post prior CABG, PCI on 08/13,complicated by [place] dissection requiring redo CABG on 08/13 and chest washout on 08/15
- Continue Plavix
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
Recent postoperative coagulopathy/thrombocytopenia
- Resolved
Recent cardiogenic shock secondary to [place] dissection
- Resolved
Recent right groin hematoma
- Resolved
Aortic stenosis status post mechanical aortic valve replacement in 2008
- Continue Coumadin
- INR 3.19
- INR goal 2.5-3.5
Paroxysmal atrial fibrillation
- Continue amiodarone
- Continue metoprolol
Chronic HFpEF
- EF of 40 to 45%
- Continue Bumex
- Continue dapagliflozin
Essential hypertension
Hyperlipidemia
- Continue statin, Zetia
Type 2 diabetes
- Continue Lantus 19 units
- Continue sitagliptin
- Insulin sliding scale
Chronic anemia
- Stable
Hyponatremia
Sacral ulcer
-wound care
BPH
- Continue tamsulosin
Obesity
Resolved obstructive sleep apnea
Anxiety
- Continue alprazolam, trazodone
Spinal stenosis
History of cataract status post extraction
Full code
DVT prophylaxis�Coumadin
Cardiac diet
--- NOTE | 2024-11-16 12:48 | CONSULT.CT ---
Consultation
-
Date/Time Consultation Performed: 11/16/24 @ 1248
Performing Provider: Kurt Delgado PA-C
Reason for Consultation: Saphenectomy site infection, RLE
Patient History
Physicians
Outpatient Cast Associate: Greg Aviles MD
History of Present Illness
Corona Benavidez is a 74-year-old male who is well-known to our service. On August 13, 2024 he went through emergent salvage redo CABG with saphenous vein graft to the left anterior descending artery following a complication in the Cath
Lab. Please refer to the separately dictated procedure notes from that date for complete details. Postoperatively he had an open chest for 2 days. Following chest closure the patient did remarkably well and was ultimately discharged to home after
15 days in the hospital. During his stay was noted that he had developed a right thigh hematoma around the saphenectomy site. This was treated with an Nicholas wrap. Apparently in the outpatient setting this developed into an open wound with drainage.
He had been followed in the outpatient basis for this for several weeks. The wound has been packed on a daily basis by he and his . He has been followed in the wound clinic and apparently the wound has been doing well up until recently. He
tells me last night he woke up in his bed was covered in foul-smelling purulent drainage. He notes that for the past several days he has had increasing pressure over the wound and it has made it painful to walk. He does not report any fevers at
home. Because the wound opened up overnight and is now draining the patient presented the emergency department for further evaluation.
Upon my evaluation the patient is resting comfortably. He does note pain over the site. Wound culture has already been obtained by the emergency department.
Past Medical History
History of AVR with 27 mm Saint Rolly mechanical valve, CABG x 3 DE LOS SANTOS�LAD, SVG�PDA, SVG�OM in 2008
Emergent salvage redo CABG with SVG�LAD on 08/13/[address] Delatorre
Post op VDRF, JULI, Afib with RVR, Sacral wound, dysphagia
Hypertension
Hyperlipidemia
Spinal stenosis at L4-L5
Type 2 diabetes
Past Surgical History
As above, additionally: Cataracts, knee arthroscopy
Family History
Family Medical History: Other (Noncontributory)
Social History
Alcohol: None
Drug: None
Tobacco: Non-Smoker
Personal:
Living: With Spouse
Allergies
Allergy/AdvReac Type Severity Reaction Status Date / Time
levofloxacin [From Levaquin] Allergy Unknown Verified 11/16/24 11:08
rosuvastatin calcium Allergy Unknown Verified 11/16/24 11:08
[From Crestor]
simvastatin [From Zocor] Allergy MYALGIAS/leg Verified 11/16/24 11:08
cramping
Home Medications
�Medication �Instructions �Recorded �Confirmed �Type
coenzyme [id number] E 100 mg-5 1 ea PO HS Supplement 01/04/15 08/28/24 History
unit capsule (Co Q-10 (with Vit E))
cholecalciferol (vitamin D3) 25 1,000 units PO QPM Supplement 08/26/18 08/28/24 History
mcg (1,000 unit) tablet
atorvastatin 40 mg tablet 40 mg PO QPM High Cholesterol 04/18/24 08/28/24 History
dulaglutide 4.5 mg/0.5 mL 4.5 mg SC BAL Diabetes 04/18/24 08/28/24 History
subcutaneous pen injector
(Trulicity)
fluticasone propionate 50 2 spray intranasal BID Allergies 04/18/24 08/28/24 History
mcg/actuation nasal
spray,suspension
collagenase clostridium histo. 250 1 applic topical BID to sacral DTI 08/28/24 08/28/24 Rx
unit/gram topical ointment #0 grams
Insulin Glargine Lantus As Directed mls/hr SC HS 09/15/24 Rx
[Lantus] 19 units
acetaminophen 325 mg tablet 650 mg (2 x 325 mg) PO Q6HPRN PRN 09/15/24 Rx
mild pain 30 days #100 tabs
alprazolam 0.5 mg tablet 0.5 mg PO Q6HPRN PRN anxiety 4 09/15/24 Rx
days #16 tabs
amiodarone 200 mg tablet 200 mg PO DAILY Arrhythmia 30 days 09/15/24 Rx
#30 tabs
benzocaine 6 mg-menthol 10 mg 1 whit PO Q4HPRN PRN cough 30 days 09/15/24 Rx
lozenges (Chloraseptic Sore Throat) #30 ea
bumetanide 2 mg tablet 2 mg PO DAILY Fluid 09/15/24 Rx
retention/Swelling 30 days #30 tabs
clopidogrel 75 mg tablet 75 mg PO DAILY Blood clot 09/15/24 08/28/24 Rx
prevention/tx/Afib #30 tabs
clotrimazole 1 % topical cream 1 applic topical BID Skin issues 09/15/24 Rx
(Athlete's Foot (clotrimazole)) 30 days #50 grams
dapagliflozin propanediol 10 mg 10 mg PO DAILY Heart 09/15/24 Rx
tablet disease/condition 30 days #30 tabs
dextromethorphan-guaifenesin 10 5 ml PO Q4HPRN PRN cough 30 days 09/15/24 Rx
mg-100 mg/5 mL oral syrup #100 mL
docusate sodium 100 mg capsule 100 mg PO BID Constipation 30 days 09/15/24 Rx
#60 caps
ezetimibe 10 mg tablet (Zetia) 10 mg PO QPM High cholesterol 30 09/15/24 Rx
days #30 tabs
gabapentin 100 mg capsule 100 mg PO TID Pain 30 days #90 caps 09/15/24 Rx
loratadine 10 mg tablet 10 mg PO DAILY Cough 30 days #30 09/15/24 Rx
tabs
metoprolol succinate 25 mg 12.5 mg (1/2 x 25 mg) PO DAILY 09/15/24 08/28/24 Rx
tablet,extended release 24 hr blood pressure #30 tabs
pantoprazole 40 mg tablet,delayed 40 mg PO DAILY GERD #0 tabs 09/15/24 08/28/24 Rx
release
psyllium husk 3.4 gram oral powder 1 packet PO QPM Constipation 30 09/15/24 Rx
packet (Metamucil Fiber Singles) days #30 ea
sennosides 8.6 mg tablet (Francesca-xochitl) 17.2 mg (2 x 8.6 mg) PO NOON 09/15/24 Rx
Constipation 30 days #60 tabs
sitagliptin phosphate 100 mg 100 mg PO DAILY Diabetes 30 days 09/15/24 Rx
tablet (Januvia) #30 tabs
tamsulosin 0.4 mg capsule 0.4 mg PO DAILY Bladder/BPH 30 09/15/24 Rx
days #30 caps
warfarin 1 mg tablet 1 mg PO DAILY CABG, A-fib- daily 09/15/24 Rx
dose will vary. May need 4mg #60
tabs
warfarin 5 mg tablet (Jantoven) 5 mg PO QPM Has 5mg already at 09/15/24 Rx
home. 30 days #30 tabs
trazodone 50 mg tablet 25 mg (1/2 x 50 mg) PO HS PRN 09/16/24 Rx
insomnia 30 days #30 tabs
Review of Systems
-
History Source: Patient and Family
General: Reports Fatigue
HEENT: Reports No Symptoms
Respiratory: Reports No Symptoms
Cardiac: Reports No Symptoms
Abdomen/GI: Reports No Symptoms
: Reports No Symptoms
Musculoskeletal: Reports No Symptoms
Skin: Reports Other (Right lower extremity wound over saphenectomy site, opened up last night now with purulent drainage)
Neurological: Reports No Symptoms
Vascular: Reports No Symptoms
Physical Exam
Vital Signs
Temp 98.6 F 11/16/24 11:06
Pulse 64 11/16/24 11:06
Blood pressure 143/74 11/16/24 11:06
SaO2 96 11/16/24 11:06
Oxygen Mode of Delivery Room air 11/16/24 11:06
Acceptable pain level during hospitalization? 0 11/16/24 11:06
Can the patient verbally communicate their pain? Yes 11/16/24 11:06
Labs
11/16/24 11:15
11/16/24 11:15
PT 32.5 Sec (11.4-14.6) H 11/16/24 11:15
Exam
General: Well Developed, Well Nourished and No Apparent Distress
HEENT: Normocephalic
Neck: Trachea Midline
Respiratory: Clear
Cardiac: S1/S2, Regular Rhythm and Other (Well-healed sternal scar)
GI: Soft, Non Tender and Non Distended
Rectal: Deferred by Provider
Skin: Warm, Dry and Other (Noted over the right lower extremity saphenectomy site is significant cellulitis with induration. The cellulitis extends from the distal thigh to proximal calf over the incision site. There is copious purulent
foul-smelling drainage)
Neuro: Awake, Alert and Oriented
Psych: Calm
Assessment / Plan
-
Abscess/infection of prior saphenectomy incision site: Patient will require formal OR debridement at this point and likely wound VAC placement. A wound culture was obtained by the emergency department prior to my arrival. Blood cultures are also
being obtained as well as an infectious disease consult. Given that the patient has a prosthetic aortic valve IV antibiotics are likely warranted as well as admission for further management. I discussed the case with Dr. Delatorre. Will obtain CBC
with differential as well as a PT/INR. The patient is on Coumadin for his mechanical AVR and will likely require reversal of this prior to operative intervention. He will need to be bridged with heparin once his INR is subtherapeutic. If his
white count is significantly elevated may proceed to the OR urgently today. Otherwise we will plan on further evaluation and likely OR tomorrow. I discussed this with the patient and his and answered their questions to their satisfaction.
They understand the plan as detailed and documented.
I prepped the area and copiously irrigated the wound with normal saline solution. I then expressed a fair amount of purulent drainage both superiorly and inferiorly to the open wound at the prior saphenectomy site. I then packed the wound with
quarter inch iodoform packing. I then wrapped the wound with an Nicholas wrap and covered the open site with an ABD pad. We will await the results of the wound culture obtained by the emergency department.
Status post emergent salvage redo CABG with SVG�LAD on 08/13/[address] Delatorre following a dissection of the prior DE LOS SANTOS to LAD graft.
History of aortic valve replacement with 27 mm Saint Rolly mechanical valve and CABG x 3 with DE LOS SANTOS�LAD, SVG�OM, SVG�PDA: Goal INR is 2.0-3.0. Check INR. May require reversal of this so we can proceed to the OR more urgently. Will require bridging
with heparin perioperatively.
Please note the majority of this consultation was completed using voice recognition software. Please excuse any grammatic or phonetic errors as a result.
Data Reviewed
-
Labs: Labs Reviewed by me
Old Records: Reviewed
Total Time Spent with Patient (in minutes): 52
--- NOTE | 2024-11-16 14:40 | CON.ID ---
Consultation
-
Date/Time Consultation Requested: November 16, 2024 1225
Date/Time Consultation Performed: November 16, 2024 1420
Requesting Provider: Dr. Corona Alvarez
Performing Provider: Dr. Sheryl Shin
Reason for Consultation: Post-op wound with drainage
Chief Complaint / Past History
Chief Complaint
Draining right leg wound
History of Present Illness
History obtained from the patient, his , and from review of medical records. He is a 74-year-old male with history of diabetes mellitus, mechanical aortic valve replacement on Coumadin, CAD prior CABG and stent who had a complicated course in
August 2024 when he underwent cardiac catheterization complicated by DE LOS SANTOS dissection requiring emergent CABG from the right leg saphenous vein to LAD; during CABG complicated by RV laceration from a retained sternal wire requiring extensive repair
on August 13, 2024. He developed sacral decubitus wound during hospital stay. Patient was then discharged to [facility] and finally to home on September 16. He then followed up at the wound care center. In addition to the sacral wound he developed
a new wound left groin, as well as at the right medial leg saphenectomy site. All the wounds were healing at the wound care center. Leg wound closed. However about a week ago he developed enlarging firm induration distal to the right leg wound.
He had difficulty with ambulation due to the lump. Overnight the wound opened and drained dark red thick fluid. He came to the ER this morning. Cardiothoracic surgeon debrided the wound at bedside. Cultures are pending. He is currently on IV
vancomycin. No fevers or chills. Of note November 06, INR 5.63. Today INR 3.19.
Past History
Additional Past Medical History:
Diabetes mellitus
Hypertension
Dyslipidemia
Mechanical aortic valve replacement
CAD history CABG and stents
DE LOS SANTOS dissection during PCI s/p emergent redo CABG SVG to LAD, 08/13/24
CABG complicated by RV laceration by retained sternal wire s/p extensive repair 08/13/24
Afib
Spinal stenosis
tremors
Allergy History:
levofloxacin [From Levaquin] Allergy (Verified 11/16/24 11:08)
Unknown
rosuvastatin calcium [From Crestor] Allergy (Verified 11/16/24 11:08)
Unknown
simvastatin [From Zocor] Allergy (Verified 11/16/24 11:08)
MYALGIAS/leg cramping
Medications Reviewed: Yes
Current Antibiotics:
Vancomycin
Social History
Tobacco: Non-Smoker
Alcohol: None
Drug: None
Personal:
Living: With Family
Family History
Family History: Not Pertinent
Review of Systems
Review of Systems
General: Negative Fever, Chills or Change in Appetite
HEENT: Negative Sinus Problems or Pharyngitis
Cardiovascular: Negative Chest Pain
Respiratory: Negative Dyspnea or Cough
Gasteroenterology: Negative Nausea, Vomiting or Diarrhea
Genital / Urological: Negative Dysuria or Flank Pain
Neurological: Negative Dizziness
All systems: All other systems were reviewed and were negative
Vital Signs
Temp Pulse BP Pulse Ox
98.6 F 64 143/74 96
11/16/24 11:06 11/16/24 11:06 11/16/24 11:06 11/16/24 11:06
Physical Exam
Physical Exam
Constitutional: No Acute Distress and Comfortable
Eyes: No Conjunctival Hemorrhage and Sclera Anicteric
Cardiovascular: Regular Rate, S1/S2 and Murmur (mechanical valve sound)
Pulmonary: Clear
Gastrointestinal: Soft, Non Tender and Non Distended
Genito-Urinary: Negative CVA Tenderness
Wound: Other (Right medial distal thigh proximal incision site with wound, blood on gauze, + erythema. )
Neurological: AO x 3
Lab / Diagnostic Study Results
11/16/24 12:58
11/16/24 12:58
Abs Immat Gran (auto) Cancelled 11/16/24 12:58
Absolute Neuts (auto) Cancelled 11/16/24 12:58
Absolute Lymphs (auto) Cancelled 11/16/24 12:58
Absolute Monos (auto) Cancelled 11/16/24 12:58
Absolute Basos (auto) Cancelled 11/16/24 12:58
Immature Gran % Cancelled 11/16/24 12:58
Neutrophils % Cancelled 11/16/24 12:58
Lymphocytes % Cancelled 11/16/24 12:58
Monocytes % Cancelled 11/16/24 12:58
Eosinophils % Cancelled 11/16/24 12:58
Basophils % Cancelled 11/16/24 12:58
PT Cancelled 11/16/24 12:58
INR Cancelled 11/16/24 12:58
Microbiology Results
Micro:
11/16/24 14:22 Wound Culture - Pending
Abscess Gram Stain - Pending
11/16/24 14:22 Blood Culture - Pending
Blood/Venous
11/16/24 14:25 Blood Culture - Pending
Blood/Venous
Assessment / Plan
# Right medial leg saphenectomy site hematoma, wound dehiscence and bloody drainage
- Suspect hematoma. Of note 11/06 INR >5 , on Coumadin
- Follow culture.
- Continue Vancomycin for now.
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
Diabetes mellitus
Hypertension
Dyslipidemia
Mechanical aortic valve replacement
CAD history CABG and stents
DE LOS SANTOS dissection during PCI s/p emergent redo CABG SVG to LAD, 08/13/24
CABG complicated by RV laceration by retained sternal wire s/p extensive repair 08/13/24
Afib
Spinal stenosis
tremors
[2024-11-16 17:05] LABS: NT-proBNP 3230 pg/ml; Troponin I 0.016 ng/ml
[2024-11-16] MEDS: LASIX 40 MG IV (17:52)
[2024-11-16] MEDS: ZOSYN 50 IV ×2 (17:54→23:42)
[2024-11-16 19:13] LABS: Glucose - Point of Care 137 mg/dl (70-99)
[2024-11-16] MEDS: NOVOLOG FLEXPEN-LOW RESISTANCE SC (19:18)
[2024-11-16] MEDS: COLACE 100 MG PO (19:33)
[2024-11-16] MEDS: ZETIA 10 MG PO (19:33)
[2024-11-16] MEDS: LIPITOR 40 MG PO (19:33)
[2024-11-16] MEDS: KCL 40 MEQ PO (19:33)
[2024-11-16] MEDS: VITAMIN D3 (cholecalciferol) 25 MCG PO (19:33)
--- NOTE | 2024-11-16 19:38 | PHA.VAN.IN ---
Addendum entered and electronically signed by Rudy Morgan, [facility] 11/16/24 19:43:
INITIAL 2GM VANCO ONLY 30ML GIVEN, REACTION STARTED HOWEVER, AFTER SPEAKING WITH DR. SABA THE REACTION WAS NOT FROM VANCOMYCIN AND WANTS TO CONTINUE WITH VANCO. 2GM REORDERED
Original Note:
Assessment
- Assessment
Renal Function: Appears similar to baseline
Concomitant Antimicrobials: zosyn
- Previous Dosing Experience
Previous Regimen: 08/2024 prn by level
AUC Dosing Plan
- Dosing Variables
Dosing Weight (kg): 92.1
Dosing CrCl (ml/min): 70
Vd coefficient (L/kg): 0.7
- Empiric Dosing
Initial / Loading Dose: 2000mg 11/16
Maintenance Regimen: 1000mg q12
Estimated AUC (mcg*h/mL): 512
Estimated Peak (mcg*h/mL): 29.4
Estimated Trough (mcg/ml): 14.8
Estimated Half Life (H): 11.1
- Monitoring
No levels ordered at this time: consider next few days
Pharmacokinetics Vancomycin I
- -
Patient Age: 74
Patient Sex: Male
Vancomycin Day #: 1
Indication: Skin And Soft Tissue
Requesting Provider: Dr. Saba
Pertinent Antimicrobial Allergies:
levofloxacin=unknown
Height / Weight:
Height 5 ft 11 in
Actual Weight 92.1 kg
IBW in k.3
- Vital Signs / Lab Results
Temp Pulse Resp BP Pulse Ox
98.6 F 80 29 120/61 95
11/16/24 11:06 11/16/24 18:00 11/16/24 18:00 11/16/24 18:00 11/16/24 18:00
Lab Results - Hematology
11/16/24 11/16/24
11:15 12:58
WBC 11.1 H Cancelled
Lab Results - Chemistry
11/16/24 11/16/24
11:15 12:58
BUN 24 H Cancelled
Creatinine 1.0 Cancelled
Estimated Creat Clear Cancelled
Albumin 3.3 L Cancelled
Microbiology Results
11/16/24 14:22 Gram Stain - Preliminary
Abscess
[2024-11-16] MEDS: VANCOCIN 540 MG IV (20:01)
[2024-11-16] MEDS: NEURONTIN 100 MG PO (21:40)
[2024-11-16] MEDS: DESYREL 50 MG PO (21:45)
[2024-11-16 22:14] LABS: Glucose - Point of Care 198 mg/dl (70-99)
--- NOTE | 2024-11-16 22:27 | PTCARENOTE ---
Rec'd pt as new admit from ED RN. Pt AAOx3, SR on CM. Arrived with vanco running through R AC IV. Pt denies symptoms at this time, appears comfortable in bed. IV site CDI. RLE wrapped in RHONDA wrap, dressed in ED per previous RN. Arrived with stg 4
pressure ulcer on sacrum. Heels boggy, NB red. Wounds on admission as documented in worklist. Pt able to tolerate PO meds whole in applesauce. Demonstrates appropriate use of call xiao. PRN trazodone given per AUG. Care ongoing.
[2024-11-17] VITALS (46 sets, daily range): BP systolic 53–120; BP diastolic 25–101; BMI 28.1
[2024-11-17] MEDS: ZOSYN 50 IV ×3 (05:18→18:25)
[2024-11-17 05:49] LABS: % Basophils 0.3 % (0-2); % Eosinophils 0.1 % (0-6); % Immature Granulocytes 0.5 % (0-0.5); % Lymphocytes 11.5 % (20.5-51.1); % Monocytes 6.8 % (1.7-9.3); % Neutrophils 80.8 % (42.2-75.2); Absolute Immature Granulocytes 0.1 10^3/uL (0-0.05); Absolute Lymphocytes 1.5 10^3/uL (1.2-3.4); Absolute Monocytes 0.9 10^3/uL (0.1-0.6); Absolute Neutrophils 10.7 10^3/uL (1.4-6.5); Hematocrit 33.4 % (39.0-52.0); Hemoglobin 10.4 g/dL (13.0-18.0); Mean Corp Hgb Conc. 31.1 g/dL (33.0-37.0); Mean Corpuscular Hgb 26.2 pg (27.0-31.0); Mean Corpuscular Volume 84.1 fL (80.0-94.0); Mean Platelet Volume 9.8 fL (7.4-10.4); Nucleated Red Blood Cells % 0 % (-); Platelet Count 242 10^3/uL (130-400); Red Blood Cell Count 3.97 10^6/uL (4.70-6.10); Red Cell Dist. Width 16.2 % (11.5-14.5); White Blood Cell Count 13.3 10^3/uL (4.8-10.8)
[2024-11-17 05:59] LABS: INR 3.52; PT 35.5 Sec (11.4-14.6)
[2024-11-17 06:11] LABS: Glucose - Point of Care 144 mg/dl (70-99)
[2024-11-17 06:14] LABS: ALT (SGPT) 25 U/L (0-50); AST (SGOT) 32 U/L (17-59); Albumin 2.8 g/dl (3.5-5.0); Alkaline Phosphatase 113 U/L (38-126); Blood Urea Nitrogen 22 mg/dl (9-20); Calcium 8.5 mg/dl (8.4-10.2); Carbon Dioxide 28 mmol/L (22-30); Chloride 106 mmol/L (98-107); Estimated Creatinine Clearance 70 ml/min; Glucose 138 mg/dl (70-99); Potassium 3.7 mmol/L (3.5-5.1); Sodium 140 mmol/L (135-145); Total Bilirubin 0.6 mg/dl (0.2-1.3); Total Protein 6.4 g/dl (6.3-8.2); eGFR > 60.00
[2024-11-17] MEDS: NOVOLOG FLEXPEN-LOW RESISTANCE SC ×3 (07:52→17:45)
[2024-11-17] MEDS: PLAVIX PO (08:35)
[2024-11-17] MEDS: NEURONTIN 100 MG PO ×3 (08:42→20:21)
[2024-11-17] MEDS: FLOMAX 0.4 MG PO (08:42)
[2024-11-17] MEDS: TOPROL XL 25 MG PO (08:42)
[2024-11-17] MEDS: PROTONIX 40 MG PO (08:42)
[2024-11-17] MEDS: BUMEX 2 MG PO (08:43)
[2024-11-17] MEDS: FARXIGA 10 MG PO (08:43)
[2024-11-17] MEDS: PACERONE 200 MG PO (08:43)
[2024-11-17] MEDS: COLACE PO ×2 (08:43→20:21)
[2024-11-17] MEDS: THERAGRAN PO ×2 (08:44→08:48)
[2024-11-17 09:12] LABS: Glycohemoglobin (HgbA1c) 7.1 % (4.0-5.6)
--- NOTE | 2024-11-17 09:15 | WOUNDNOTE ---
R KNEE (MEDIAL, PROXIMAL)
--- NOTE | 2024-11-17 09:18 | WOUNDNOTE ---
[facility] RN note: Patient admitted with RLE saphenous vein infection. For I+D today by CTS. Patient follows [facility]. does his wound care at home.
See H&P for complete history.
PMH: CABG about 12 weeks ago, AVR 2008, a fib, CHF, HTN, DM, BPH, spinal stenosis.
Wound Location and type/assessment: Patient admitted with: stage 4 sacral pressure injury, pink to muscle. R medial full thickness wound from surgical incision.
Appetite: NPO for surgery today.
Pressure redistribution devices in place: Centrella IndoorAtlas air bed. Patient turns self in bed. He is aware to lay on his side in bed.
Plan: Sacral dressing changed including packing. Protective foam applied to heels. Heels off bed with pillow. Air chair cushion given.
Confirmed orders with Dr. Myers and discussed with ERINN Bender.
Care plan to be updated and will follow as needed.
Patient to follow up at wound care center and CT surgeon upon discharge.
--- NOTE | 2024-11-17 09:20 | WOUNDNOTE ---
[facility] RN note: Patient admitted with RLE saphenous vein infection. For I+D today by CTS. Patient follows [facility]. does his wound care at home.
See H&P for complete history.
PMH: CABG about 12 weeks ago, AVR 2008, a fib, CHF, HTN, DM, BPH, spinal stenosis.
Wound Location and type/assessment: Patient admitted with: stage 4 sacral pressure injury, pink to muscle or deeper. R medial full thickness wound from surgical incision.
Appetite: NPO for surgery today.
Pressure redistribution devices in place: Centrella Max air bed. Patient turns self in bed. He is aware to lay on his side in bed.
Plan: Sacral dressing changed including packing. Protective foam applied to heels. Heels off bed with pillow. Air chair cushion given.
Confirmed orders with Dr. Myers and discussed with ERINN Bender.
Care plan to be updated and will follow as needed.
Patient to follow up at wound care center and CT surgeon upon discharge.
--- NOTE | 2024-11-17 09:46 | PHA.VAN.FU ---
Vancomycin Assessment / Plan
- Assessment
Renal Function: Stable
In the past 24 hrs, patient has been: Afebrile
Concomitant Antimicrobials: pipearcillin/tazobactam
- Dosing Plan
Continue: Vanc 1000mg Q12H - timed to start at 1800
Dosing Comments: No dose ordered for this AM - will give 500mg x1 now
- Monitoring Plan
No level(s) ordered at this time: consider levels in next few days
- Follow Up
Pharmacy will continue to follow.
Vancomycin Follow UP
- -
Patient Age: 74
Patient Sex: Male
Vancomycin Day #: 2
Indication: Skin And Soft Tissue
Requesting Provider: Dr. Saba / Kip
Pertinent Antimicrobial Allergies:
levofloxacin - muscle pain
Height / Weight:
Height 5 ft 11 in
Actual Weight 91.5 kg
IBW in k.3
- Vital Signs / Lab Results
Temp Pulse Resp BP Pulse Ox
97.8 F 61 19 103/33 97
11/17/24 07:42 11/17/24 08:42 11/17/24 06:00 11/17/24 08:42 11/17/24 06:00
Lab Results - Hematology
11/16/24 11/16/24 11/17/24
11:15 12:58 05:14
WBC 11.1 H Cancelled 13.3 H
Lab Results - Chemistry
11/16/24 11/16/24 11/17/24
11:15 12:58 05:14
BUN 24 H Cancelled 22 H
Creatinine 1.0 Cancelled 1.0
Estimated Creat Clear Cancelled 70
Albumin 3.3 L Cancelled 2.8 L
Microbiology Results
11/16/24 14:22 Gram Stain - Preliminary
Abscess
[2024-11-17] MEDS: VANCOCIN HCL 500 MG 100 IV (10:34)
--- NOTE | 2024-11-17 12:00 | W.PN.ID1 ---
Date of Service
Date of Service: November 17, 2024
Today's Communication
Continue vanco/zosyn pending cx.
Assessment / Plan
# Right medial leg saphenectomy site hematoma, wound dehiscence and drainage
# Superimposed right medial leg wound infection
- Gram stain: few GNR, cx pending
- Continue Vancomycin and Zosyn pending cx.
# Moderate right pleural effusion
- For thoracentesis.
Send cell count with diff, pH, LDH, protein, glucose, culture.
Serum LDH.
# Diarrhea yesterday, resolved
-Cancel C. diff order
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
Diabetes mellitus
Hypertension
Dyslipidemia
Mechanical aortic valve replacement
CAD history CABG and stents
DE LOS SANTOS dissection during PCI s/p emergent redo CABG SVG to LAD, 08/13/24
CABG complicated by RV laceration by retained sternal wire s/p extensive repair 08/13/24
Afib
Spinal stenosis
tremors
Chief Complaint
-: Cellulitis
Subjective / Review of Systems
+ cough since cardiac surgery.
+ positional right lower thorax discomfort x several weeks.
Vital Signs / Physical Exam
Vital Signs
Vital Signs
Temp Pulse Resp BP Pulse Ox
98.5 F 56 26 92/41 94
11/17/24 11:02 11/17/24 11:30 11/17/24 11:30 11/17/24 11:30 11/17/24 11:30
Physical Exam
Constitutional: No Acute Distress and Comfortable
Cardiovascular: Regular Rate and S1/S2
Pulmonary: Other (Decreased BS right )
Gastrointestinal: Soft, Non Tender and Non Distended
Extremities: Negative Edema
Wound: Other (right leg dressing dry)
Neurological: AO x 3
Objective Data
Lab Data
Lab Results
11/17/24 05:14
11/17/24 05:14
PT 35.5 Sec (11.4-14.6) H 11/17/24 05:14
INR 3.52 11/17/24 05:14
APTT Cancelled 11/16/24 12:58
Estimated Creat Clear 70 ml/min 11/17/24 05:14
Total Bilirubin 0.6 mg/dl (0.2-1.3) 11/17/24 05:14
AST 32 U/L (17-59) 11/17/24 05:14
ALT 25 U/L (0-50) 11/17/24 05:14
Alkaline Phosphatase 113 U/L (38-126) 11/17/24 05:14
Most recent labs reviewed.
Micro Results:
11/16/24 20:17 MRSA Screen - Pending
Nose
11/16/24 14:22 Wound Culture - Pending
Abscess Gram Stain - Preliminary
11/16/24 14:25 Blood Culture - Pending
Blood/Venous
11/16/24 14:22 Blood Culture - Pending
Blood/Venous
11/16/24 CT RLE: Collection containing high density packing material within the posterior medial soft tissues of the right lower leg at and above the level of the knee joint measuring 7.5 x 1.8 x 2.4 cm in size. A small tract contiguous with this
collection extends through the skin surface with overlying bandage material in place. Surrounding inflammatory fat stranding. No separate rim-enhancing fluid collection. Circumferential edema about the lower leg, and edema along the anterolateral
lower thigh.
11/16/24 CXR: Moderate right pleural effusion.
09/15/24 CXR: Possible small right pleural effusion
[2024-11-17 12:04] LABS: Glucose - Point of Care 128 mg/dl (70-99)
[2024-11-17 13:20] LABS: LDH 221 U/L (120-246)
--- NOTE | 2024-11-17 15:21 | W.CVOR.SURPR ---
CVOR Surgeon Immed Pre Op
-
CARDIAC SURGERY ATTENDING:
It is unfortunate that Mr. Corona Benavidez has represented with a ongoing/worsening cellulitis. I believe the most prudent course of action is operative exploration, washout, and wound VAC placement coupled with IV antibiotic therapy as directed by
the expertise of my infectious disease colleagues. In addition, the patient has a sizable right effusion. I will arrange for IR drainage immediately preoperatively. I greatly appreciate my interventional radiology colleagues for facilitating. I
had a conversation with Mr. Benavidez and his family. We discussed the proposed interventions and the associated risks. Informed consent has been obtained. All questions were answered to the best my abilities.
I have examined this patient prior to performance of the scheduled procedure.
The patient's condition is unchanged from the time of the dictated/written History and
Physical and the patient is able to undergo the scheduled procedure.
Thank you
Patrice Delatorre MD
[phone]
[2024-11-17 15:24] LABS: Body Fluid pH 7.34
[2024-11-17 15:44] LABS: Body Fluid Glucose 87 mg/dl; Body Fluid LDH 210 U/L; Body Fluid Protein 3.3 g/dl
[2024-11-17 15:46] LABS: Body Fluid Mononuclear 79.5 %; Body Fluid Polymorphonuclear 20.5 %
[2024-11-17 15:47] LABS: Body Fluid WBC 1986 /CUMM
--- NOTE | 2024-11-17 16:11 | W.PN.HOSP.TC ---
Today's Communication/Plan
-
Assessment / Plan
Assessment / Plan
General: No Apparent Distress, Comfortable and Conversant
HEENT: NormoCephalic, Moist mucous membranes, Atraumatic
Respiratory: Clear and Non Labored Respirations
Cardiac: S1/S2 and Regular Rhythm; No Rub or Gallop
GI: Soft, Non Tender, Non Distended and Normal Bowel Sounds
Musculoskeletal: No Edema, right lower extremity saphenectomy site wound dressing in place
Skin: Warm and dry
: NO Becerra
Neuro: Awake, Alert, Nonfocal/grossly intact
Psych: Calm and Intact Judgment/Insight
Mr. Benavidez is a 74-year-old male with a medical history of CAD (status post CABG x 3 in 2008, emergent salvage 08/13/2024 with right saphenous graft to LAD after DE LOS SANTOS dissection), aortic stenosis (status post mechanical AVR, on warfarin with INR goal
2.5-3.5), HFmrEF, hypertension, and insulin-dependent diabetes mellitus who presented with right leg saphenectomy site infection and hematoma.
Right lower extremity saphenous vein graft site infection:
- Continue antibiotics with vancomycin and Zosyn
- Appreciate ID input
- Cardiothoracic surgery planning evaluation and washout of infected graft site with possible hematoma
Right pleural effusion:
- Status post thoracentesis today 11/17 with 1.2 L straw-colored pleural fluid drained prior to holding prematurely due to development of chest pain
- Serum studies positive by lights criteria
- Continuing antibiotics
- Also continuing diuresis
Chronic HFrEF:
- Continue daily oral Bumex
- Beta-blockade with metoprolol succinate 25 mg daily
- Suspect not on afterload reduction due to baseline hypotension
- Continue Farxiga
CAD:
- Extensive history including CABG x 3 in 2008 and recent emergent salvaged 08/13/2024 with a right saphenous graft following DE LOS SANTOS dissection
- Now with right saphenectomy site infection and possible hematoma, cardiothoracic surgery following with plan for surgical evaluation with washout and wound VAC
A-fib:
- Currently controlled
- Continue amiodarone and metoprolol succinate
- Holding warfarin pending procedures
Mechanical AVR:
- Typically INR goal is 2.5-3.5 although currently holding anticoagulation pending procedures
DVT prophylaxis: INR currently supratherapeutic
CODE STATUS: Full code
Total time spent on today's encounter was 45 minutes
Anticipated Discharge: > 48 hours
Subjective/Interval History
-
Date of Service: November 17, 2024
Patient was seen and examined at bedside this morning. Awaiting right thoracentesis and potential I&D of right lower extremity hematoma.
Objective Data
-
Labs:
Laboratory Results
11/17/24
05:14
WBC 13.3 H
Hgb 10.4 L
Hct 33.4 L
Plt Count 242
PT 35.5 H
INR 3.52
Sodium 140
Potassium 3.7
Chloride 106
Carbon Dioxide 28
BUN 22 H
Creatinine 1.0
Glucose 138 H
Calcium 8.5
Total Bilirubin 0.6
AST 32
ALT 25
Alkaline Phosphatase 113
Vital Signs:
Vital Signs
Temp Pulse Resp BP Pulse Ox
98.5 F 60 12 96/46 92
11/17/24 11:02 11/17/24 15:37 11/17/24 15:37 11/17/24 15:37 11/17/24 15:14
I&O
11/16/24 11/17/24 11/18/24
06:59 06:59 06:59
Output Total 350 / 350 425 / 425
Balance -350 / -350 -425 / -425
Review of Systems
-
History Source: Patient
All other systems: Reviewed and negative
Musculoskeletal: Reports Joint Pain (Right lower extremity pain at saphenectomy site)
Physical Exam
-
General: No Apparent Distress
--- NOTE | 2024-11-17 16:31 | W.IMMPOSTOP ---
Addendum entered and electronically signed by Partice Delatorre MD 11/17/24 16:57:
[id number]
Original Note:
Surgical Immed Post Op Note
-
CARDIAC SURGERY OPERATIVE REPORT
Preoperative Dx:
RLE cellulitis w/ chronic RLE wound
Postoperative Dx:
RLE cellulitis
Underlying abscess cavity
Procedures:
1) Wound exploration
2) Pulsavac irrigation & ABX irrigation
3) Wound VAC placement
Surgeon:
Patrice Delatorre M.D.
Manager Monitoring:
Chao Fay P.A.-C.
Anesthesia:
Cinda WeemsN.A.
Horacio Dumont M.D.
MAC
Findings:
Large abscess cavity w/ scant residual purulence
Measurements: 12cm x 3.0cm x 1.5cm
Pulsavac irrigation w/ ~2500mL
Wound vac placement w/ 1 - black sponge; -125mmHg, continuous
EBL:
30mL
Complications:
None
Condition:
Stable/guarded to recovery
--- NOTE | 2024-11-17 16:39 | W.PN.UPDATE ---
Update Note
Progress Note Update
S/P I&D on 11/[address] Delatorre and wound vac application
[2024-11-17 16:48] LABS: Glucose - Point of Care 130 mg/dl (70-99)
[2024-11-17] MEDS: SUBLIMAZE 25 MCG IV ×2 (16:58→17:14)
[2024-11-17 16:59] LABS: Body Fluid Second Tech DW
--- NOTE | 2024-11-17 17:06 | CM ---
Patient with RLE saphenous vein graft site infection. OR today for washout of infected graft site and placement wound VAC, Right pleural effusion s/p thoracentesis today. Room air. Per nurse; A/O.
Met with patient's Charmaine and 2 sons;
the patient resides with his in a 2 story house with 2 BRENDA.
The patient was independent in ADLs and ambulation using his SPC.
was assisting him at home with wound care and he was going to the wound care center.
Patient was currently going to Outpatient PT/OT.
DME - [facility], RW
Prior [facility]
Prior [facility]
PCP - Kyrie Asher
Pharmacy - [facility]
Offered VN for new wound care with wound VAC and interested in [facility], however she wants him to continue outpatient PT/OT--[facility]
Message to Dr Koch requesting PT/OT [facility].
Plan follow up regarding wound care and mobility needs.
Plan home.
--- NOTE | 2024-11-17 17:59 | PTCARENOTE ---
Patient returned from OR and thora. Thora site CDI, patient on 2L NC sats 96%. RLE woundvac CDI to -125mmhg. Patient reports pain mild and tolerable. +Pulses. at bedside. VSS. Patient ordering dinner now. Will closely monitor.
[2024-11-17] MEDS: THERAGRAN 1 TABLET PO (18:24)
[2024-11-17] MEDS: ZETIA 10 MG PO (18:25)
[2024-11-17] MEDS: LIPITOR 40 MG PO (18:25)
[2024-11-17] MEDS: LANTUS 0.2 UNITS SC (18:25)
[2024-11-17] MEDS: VITAMIN D3 (cholecalciferol) 25 MCG PO (18:26)
[2024-11-17] MEDS: VANCOCIN 200 IV (19:23)
[2024-11-17 22:23] LABS: Glucose - Point of Care 177 mg/dl (70-99)
[2024-11-18] VITALS (21 sets, daily range): BP systolic 97–135; BP diastolic 48–100; BMI 27.7
[2024-11-18] MEDS: ZOSYN 50 IV ×4 (00:10→17:19)
[2024-11-18] MEDS: DESYREL 50 MG PO ×2 (00:10→21:24)
--- NOTE | 2024-11-18 03:08 | PTCARENOTE ---
Received pt at change of shift. Pt AAOx3. Lungs are CTA but diminished. Wound vac on right knee intact and no malfunctions; sanguineous drainage. VAT called to place another IV site; previous site was leaking when flushed. New site in the right
FA placed. Pt offers no complaints at this time. Resting in bed with call xiao in reach.
[2024-11-18 04:15] LABS: % Basophils 0.6 % (0-2); % Eosinophils 1.2 % (0-6); % Immature Granulocytes 0.4 % (0-0.5); % Lymphocytes 17.6 % (20.5-51.1); % Monocytes 9.7 % (1.7-9.3); % Neutrophils 70.5 % (42.2-75.2); Absolute Basophils 0.1 10^3/uL (0-0.2); Absolute Eosinophils 0.1 10^3/uL (0-0.7); Absolute Lymphocytes 1.6 10^3/uL (1.2-3.4); Absolute Monocytes 0.9 10^3/uL (0.1-0.6); Absolute Neutrophils 6.3 10^3/uL (1.4-6.5); Hematocrit 33.5 % (39.0-52.0); Hemoglobin 10.2 g/dL (13.0-18.0); Mean Corp Hgb Conc. 30.4 g/dL (33.0-37.0); Mean Corpuscular Hgb 26.4 pg (27.0-31.0); Mean Corpuscular Volume 86.8 fL (80.0-94.0); Nucleated Red Blood Cells % 0 % (-); Platelet Count 233 10^3/uL (130-400); Red Blood Cell Count 3.86 10^6/uL (4.70-6.10); Red Cell Dist. Width 16.3 % (11.5-14.5)
[2024-11-18 04:28] LABS: INR 4.09; PT 39.8 Sec (11.4-14.6)
[2024-11-18 04:40] LABS: ALT (SGPT) 30 U/L (0-50); AST (SGOT) 39 U/L (17-59); Albumin 2.8 g/dl (3.5-5.0); Alkaline Phosphatase 111 U/L (38-126); Blood Urea Nitrogen 23 mg/dl (9-20); Calcium 8.6 mg/dl (8.4-10.2); Carbon Dioxide 33 mmol/L (22-30); Chloride 106 mmol/L (98-107); Estimated Creatinine Clearance 64 ml/min; Glucose 127 mg/dl (70-99); Potassium 3.7 mmol/L (3.5-5.1); Sodium 142 mmol/L (135-145); Total Bilirubin 0.6 mg/dl (0.2-1.3); Total Protein 6.4 g/dl (6.3-8.2); eGFR > 60.00
[2024-11-18] MEDS: VANCOCIN 200 IV (06:01)
--- NOTE | 2024-11-18 06:14 | W.PN.CT ---
Today's Communication / Plan
-
Plan:
-Cont. wound vac to suction, has drained 100 mL of sanguineous drainage thus far
-Will change wound-vac tomorrow per Dr. Delatorre
-Cont. antibiotics with Zosyn and Vancomycin
-Pt underwent right thoracentesis with evacuation of 1250 cc of straw color pleural fluid yesterday 11/17/24, f/u cxr
-Encourage use of IS
-OOB into chair
Assessment / Plan
-
Assessment:
-S/p Wound exploration/Pulsavac irrigation & ABX irrigation/Wound VAC pl, by Dr. Delatorre, 11/17/24, pod#1
-S/P R thoracentesis with evacuation of 1250 cc of straw color pleural fluid yesterday 11/17/24
-Admitted 11/16/24 with RLE cellulitis/Abscess
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
required extensive complex repairs & necessitated re-establishment of CPB x 2; Lysis of extensive circumferential adhesions; repair of a minor injury to the innominate vein; Open exposure of L CREW LEADER GLUING (assisted by vascular surgery) w/ proximal and
distal control on 08/13/24
-S/p Mediastinal exploration & washout/ Chest closure, by Dr. Delatorre, 08/15/24
- Admitted on 08/13/24 for elective cath for exertional CP and abnormal stress test
- Cath 08/13/24 with successful PCI of 80% in-stent restenosis including the distal margin of the stent leading into the mary[employer] igloo vessel
and successful PCI of the 90% proximal stent edge restenosis, complicated by DE LOS SANTOS dissection.
- hx mechanical AVR /CABG [place] [address] Pal
- NSTEMI with 80% stenosis of LAD at DE [place] SANTOS anastomosis requiring LAD stent in 04/18/24- last Plavix dose was 08/11/24
- EF 45-50% by TTE 04/2024
- Chronic diastolic CHF
- HTN/HLD
- DM II ( on Trulicity and Jardiance)
- Coumadin anticoagulation for mechanical AVR - last dose 08/10/24
- Spinal stenosis L4-L5
- L knee arthroscopy 2012
- Cataract extraction
- Acute postop blood loss anemia in setting of preop coagulopathy (INR was 2.68 preop)- s/p multiple transfusions (13 pRBCs), transfused additional 2u PRBCs post
chest washout and closure
- Acute postop coagulopathy (4 FFPs, 1 cryo, Protamine)
- Acute postop thrombocytopenia (4 platelets), transfused additional 1 {5pk} plts post chest washout and closure
- Acute cardiogenic shock
- Acute postop atelectasis
- Acute postop hypovolemia with subsequent hypervolemia
- Acute postop pericarditis per ekg
- Acute postop pulmonary insufficiency
- Acute postop pleural effusion
- Acute postop hyponatremia
- Acute postop JULI
- Postop VDRF
- Acute postop afib with RVR
Discussed patient care with: Cardiology, Nursing, Respiratory Therapy, Pharmacy and Care Team
Subjective
Procedure
S/p Wound exploration/Pulsavac irrigation & ABX irrigation/Wound VAC pl, by Dr. Delatorre, 11/17/24,
-
Date of Service: November 18, 2024
Pt c/o mild tenderness to palpation around wound, states 'pain much better than before, and my breathing has improved'
Objective Data
-
Lab Results
11/18/24 03:58
11/18/24 03:58
PT 39.8 Sec (11.4-14.6) H 11/18/24 03:58
INR 4.09 11/18/24 03:58
APTT Cancelled 11/16/24 12:58
Vital Signs
Vital Signs
Temp Pulse Resp BP Pulse Ox
97.6 F 60 24 114/63 97
11/17/24 23:10 11/18/24 00:00 11/18/24 00:00 11/18/24 00:00 11/18/24 01:40
CT Intake/Output/Weight
11/17/24 11/17/24 11/18/24
06:59 18:59 06:59
Intake Total 120 / 120
Output Total 350 / 350 425 / 1250 825 / 1250
Balance -350 / -350 -305 / -1130 -825 / -1130
SaO2: 97 (2L)
Physical Exam
-
General: Awake, Oriented and AOx3
Cardiovascular: Regular rate & rhythm (mechanical click)
Respiratory: Decreased Breath Sounds
Sternum: Stable
Incision: Clean, Dry, Intact and Dressing Intact
Extremities: Edema +2 (RLE)
Data Reviewed
-
Lab Results: Results Reviewed
Medications: Active Meds Reviewed
Chest X-Ray: Report Reviewed and Image Reviewed
ECG: Report Reviewed and Image Reviewed
[2024-11-18] MEDS: NOVOLOG FLEXPEN-LOW RESISTANCE SC (07:55)
[2024-11-18] MEDS: PROTONIX 40 MG PO (07:56)
[2024-11-18] MEDS: FARXIGA 10 MG PO (07:56)
[2024-11-18] MEDS: FLOMAX 0.4 MG PO (07:56)
[2024-11-18] MEDS: NEURONTIN 100 MG PO ×3 (07:56→21:24)
[2024-11-18] MEDS: BUMEX 2 MG PO (07:56)
[2024-11-18] MEDS: PACERONE 200 MG PO (07:57)
[2024-11-18] MEDS: THERAGRAN 1 TABLET PO (07:57)
[2024-11-18] MEDS: TOPROL XL 25 MG PO (07:57)
[2024-11-18] MEDS: PLAVIX 75 MG PO (07:57)
[2024-11-18] MEDS: COLACE 100 MG PO (07:57)
[2024-11-18 08:07] LABS: Glucose - Point of Care 140 mg/dl (70-99)
--- NOTE | 2024-11-18 09:18 | WOUNDNOTE ---
AURELIANO PLASENCIA NOTE: Faxed necessary PW to Gisela at [facility]/ for home vac unit approval.
--- NOTE | 2024-11-18 10:23 | W.PN.ID1 ---
Date of Service
Date of Service: November 18, 2024
Today's Communication
Continue Zosyn.
DC Vancomycin.
Assessment / Plan
# Right medial leg saphenectomy site abscess
# Leukocytosis resolved
- Abscess cx GNR
- 11/17 s/p OR I+D of large abscess cavity with scant residual purulence
- Continue Zosyn pending cx.
- DC Vancomycin
# Moderate right pleural effusion
- 11/17 s/p thoracentesis.
Pleural fluid: exudate.
Cx pending
-Continue Zosyn for now.
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
Diabetes mellitus
Hypertension
Dyslipidemia
Mechanical aortic valve replacement
CAD history CABG and stents
DE LOS SANTOS dissection during PCI s/p emergent redo CABG SVG to LAD, 08/13/24
CABG complicated by RV laceration by retained sternal wire s/p extensive repair 08/13/24
Afib
Spinal stenosis
tremors
Chief Complaint
-: Cellulitis
Subjective / Review of Systems
Right chest discomfort better after large volume thoracentesis.
Vital Signs / Physical Exam
Vital Signs
Vital Signs
Temp Pulse Resp BP Pulse Ox
97.7 F 56 16 107/65 97
11/18/24 07:35 11/18/24 08:13 11/18/24 08:13 11/18/24 08:13 11/18/24 08:13
Physical Exam
Constitutional: No Acute Distress and Comfortable
Eyes: No Conjunctival Hemorrhage and Sclera Anicteric
Cardiovascular: Regular Rate and S1/S2
Pulmonary: Rales (right base)
Gastrointestinal: Soft, Non Tender, Non Distended and Normal Bowel Sounds
Extremities: Negative Edema
Wound: Other (right medial leg wound vac in place)
Neurological: AO x 3
Objective Data
Lab Data
Lab Results
11/18/24 03:58
11/18/24 03:58
PT 39.8 Sec (11.4-14.6) H 11/18/24 03:58
INR 4.09 11/18/24 03:58
APTT Cancelled 11/16/24 12:58
Estimated Creat Clear 64 ml/min 11/18/24 03:58
Total Bilirubin 0.6 mg/dl (0.2-1.3) 11/18/24 03:58
AST 39 U/L (17-59) 11/18/24 03:58
ALT 30 U/L (0-50) 11/18/24 03:58
Alkaline Phosphatase 111 U/L (38-126) 11/18/24 03:58
Most recent labs reviewed.
Micro Results:
11/16/24 20:17 MRSA Screen - Final
Nose No Methicillin Resistant Staphylococcus aureus isolated.
11/16/24 14:22 Wound Culture - Preliminary
Abscess Gram negative bacilli
Gram Stain - Preliminary
11/17/24 15:02 Body Fluid Culture - Pending
Pleural Fluid Gram Stain - Pending
11/16/24 14:22 Blood Culture - Preliminary
Blood/Venous No Growth in 24 hours- Final report to follow
11/16/24 14:25 Blood Culture - Preliminary
Blood/Venous No Growth in 24 hours- Final report to follow
11/16/24 CT RLE: Collection containing high density packing material within the posterior medial soft tissues of the right lower leg at and above the level of the knee joint measuring 7.5 x 1.8 x 2.4 cm in size. A small tract contiguous with this
collection extends through the skin surface with overlying bandage material in place. Surrounding inflammatory fat stranding. No separate rim-enhancing fluid collection. Circumferential edema about the lower leg, and edema along the anterolateral
lower thigh.
11/16/24 CXR: Moderate right pleural effusion.
11/18/24 CXR: Small right pleural effusion
--- NOTE | 2024-11-18 10:34 | PTCARENOTE ---
Pt aaox3 on walking rounds this am.Pt has wound vac on R leg , takes pills in applesauce. Coumadin on hold at this time. Lungs are diminished . Ptin NSR
--- NOTE | 2024-11-18 10:36 | VNURNOTE ---
Home Health Liaison met with patient and spouse at bedside to discuss [facility] nurse/therapy, visits, schedule and homebound status. [employer] pt was going to outpt PT. Explained that pt will not be able to have VN in the home and still go to outpt PT.
Spouse and patient verbalize understanding and are agreeable to put outpt PT on hold. All questions answered. Patient and spouse understand that visits at home will be 2-3 x per week to assess and teach medical and wound vac management. Both are
aware that [facility] will contact them for start of care in 1-2 days after discharge from .
[facility] referral completed in [facility].
[2024-11-18 12:13] LABS: Glucose - Point of Care 209 mg/dl (70-99)
[2024-11-18] MEDS: NOVOLOG FLEXPEN-LOW RESISTANCE 2 UNITS SC (13:17)
[2024-11-18] MEDS: NOVOLOG FLEXPEN-LOW RESISTANCE 1 UNITS SC (16:46)
[2024-11-18 16:59] LABS: Glucose - Point of Care 195 mg/dl (70-99)
[2024-11-18] MEDS: LANTUS 0.2 UNITS SC (17:18)
[2024-11-18] MEDS: ZETIA 10 MG PO (17:18)
[2024-11-18] MEDS: LIPITOR 40 MG PO (17:19)
[2024-11-18] MEDS: VITAMIN D3 (cholecalciferol) 25 MCG PO (17:19)
--- NOTE | 2024-11-18 18:05 | W.PN.HOSP.TC ---
Today's Communication/Plan
-
Assessment / Plan
Assessment / Plan
General: No Apparent Distress, Comfortable and Conversant
HEENT: NormoCephalic, Moist mucous membranes, Atraumatic
Respiratory: Clear and Non Labored Respirations
Cardiac: S1/S2 and Regular Rhythm; No Rub or Gallop, audible diastolic click
GI: Soft, Non Tender, Non Distended and Normal Bowel Sounds
Musculoskeletal: No Edema, right lower extremity saphenectomy with wound VAC in place
Skin: Warm and dry
: NO Becerra
Neuro: Awake, Alert, Nonfocal/grossly intact
Psych: Calm and Intact Judgment/Insight
Mr. Benavidez is a 74-year-old male with a medical history of CAD (status post CABG x 3 in 2008, emergent salvage 08/13/2024 with right saphenous graft to LAD after DE LOS SANTOS dissection), aortic stenosis (status post mechanical AVR, on warfarin with INR goal
2.5-3.5), HFmrEF, hypertension, and insulin-dependent diabetes mellitus who presented with right leg saphenectomy site infection and hematoma.
Right lower extremity saphenous vein graft site infection:
- Wound cultures growing pansensitive E. coli, will transition to antibiotic coverage with cefazolin tonight
- Appreciate ID guidance
- Cardiothoracic surgery performed wound evaluation and washout of infected graft site yesterday 11/17, patient tolerated procedure well, wound VAC in place, tentative plan is for wound VAC change tomorrow 11/19
- Pain control as needed
Right pleural effusion:
- Status post thoracentesis 11/17 with 1.2 L straw-colored pleural fluid drained prior to holding prematurely due to development of chest pain
- Serum studies exudative by lights criteria
- Continuing antibiotics with Zosyn, follow-up cultures
- Also continuing diuresis
Chronic HFrEF:
- Continue daily oral Bumex
- Beta-blockade with metoprolol succinate 25 mg daily
- Suspect not on afterload reduction due to baseline hypotension
- Continue Farxiga
CAD:
- Extensive history including CABG x 3 in 2009 and recent emergent salvaged 08/13/2024 with a right saphenous graft following DE LOS SANTOS dissection
- Now with right saphenectomy site infection and possible hematoma, cardiothoracic surgery following with plan for surgical evaluation with washout and wound VAC
A-fib:
- Currently controlled
- Continue amiodarone and metoprolol succinate
- Holding warfarin pending procedures
Mechanical AVR:
- Typically INR goal is 2.5-3.5 although currently holding anticoagulation pending procedures
DVT prophylaxis: INR currently supratherapeutic
CODE STATUS: Full code
Total time spent on today's encounter was 45 minutes
Anticipated Discharge: > 48 hours
Subjective/Interval History
-
Date of Service: November 18, 2024
Patient was seen and examined at bedside this morning. He underwent right saphenectomy site wound exploration with washout and wound VAC placement yesterday. He tolerated the procedure well. He also underwent right thoracentesis yesterday with
1.2 L taken off. He is breathing comfortably.
Objective Data
-
Vital Signs:
Vital Signs
Temp Pulse Resp BP Pulse Ox
97.5 F 57 3 135/100 95
11/18/24 11:05 11/18/24 17:01 11/18/24 17:01 11/18/24 17:01 11/18/24 17:01
I&O
11/17/24 11/18/24 11/19/24
06:59 06:59 06:59
Intake Total 120 / 120 100 / 100
Output Total 350 / 350 1250 / 1250 850 / 850
Balance -350 / -350 -1130 / -1130 -750 / -750
Review of Systems
-
History Source: Patient
All other systems: Reviewed and negative
Musculoskeletal: Reports Joint Pain (Right leg discomfort)
Physical Exam
-
General: No Apparent Distress
--- NOTE | 2024-11-18 19:00 | PTCARENOTE ---
Sacral wound changed, clean lookig no odor. Pt states its panful
[2024-11-18] MEDS: COLACE PO (19:04)
[2024-11-18 21:36] LABS: Glucose - Point of Care 133 mg/dl (70-99)
[2024-11-18] MEDS: ANCEF 10 IV (23:12)
[2024-11-19] VITALS (21 sets, daily range): BP systolic 92–129; BP diastolic 40–71; PULSE 52; BMI 27.7
[2024-11-19] MEDS: TYLENOL 1000 MG PO (03:50)
--- NOTE | 2024-11-19 05:03 | PTCARENOTE ---
Received pt at change of shift. AAOx3. Wound vac on right knee remains intact with no malfunctions throughout shift. Minimal drainage. Pt requested Tylenol for back pain; administered PRN Tylenol per order (see MAR). Encouraged Q2T as pt is able
to turn himself. During hourly rounds, pt does turn in bed. Pt offers no complaints at this time. Resting in bed with call xiao in reach.
[2024-11-19 05:35] LABS: % Basophils 0.4 % (0-2); % Eosinophils 1.3 % (0-6); % Immature Granulocytes 0.2 % (0-0.5); % Lymphocytes 18.3 % (20.5-51.1); % Monocytes 8.4 % (1.7-9.3); % Neutrophils 71.4 % (42.2-75.2); Absolute Eosinophils 0.1 10^3/uL (0-0.7); Absolute Lymphocytes 1.7 10^3/uL (1.2-3.4); Absolute Monocytes 0.8 10^3/uL (0.1-0.6); Absolute Neutrophils 6.7 10^3/uL (1.4-6.5); Hematocrit 31.7 % (39.0-52.0); Mean Corp Hgb Conc. 31.5 g/dL (33.0-37.0); Mean Corpuscular Hgb 26.8 pg (27.0-31.0); Mean Platelet Volume 9.9 fL (7.4-10.4); Nucleated Red Blood Cells % 0 % (-); Platelet Count 230 10^3/uL (130-400); Red Blood Cell Count 3.73 10^6/uL (4.70-6.10); Red Cell Dist. Width 16.1 % (11.5-14.5); White Blood Cell Count 9.4 10^3/uL (4.8-10.8)
[2024-11-19 05:40] LABS: PT 39.2 Sec (11.4-14.6)
[2024-11-19 05:56] LABS: ALT (SGPT) 33 U/L (0-50); AST (SGOT) 45 U/L (17-59); Albumin 2.9 g/dl (3.5-5.0); Alkaline Phosphatase 139 U/L (38-126); Blood Urea Nitrogen 22 mg/dl (9-20); Calcium 8.3 mg/dl (8.4-10.2); Carbon Dioxide 29 mmol/L (22-30); Chloride 107 mmol/L (98-107); Estimated Creatinine Clearance 64 ml/min; Glucose 116 mg/dl (70-99); Sodium 140 mmol/L (135-145); Total Bilirubin 0.5 mg/dl (0.2-1.3); Total Protein 6.3 g/dl (6.3-8.2); eGFR > 60.00
[2024-11-19 06:02] LABS: Potassium 3.5 mmol/L (3.5-5.1)
--- NOTE | 2024-11-19 07:55 | WOUNDNOTE ---
WO RN note: Patient's ready home vac has been approved as per [employer] therapy portal. Will bring up patient's home vac when discharge date has been confirmed. Plan to change patient's vac dressing today around 11am. Will meet with NATE LORD. Update
ERINN Nguyen who will give patient pain med prior.
[2024-11-19] MEDS: BUMEX 2 MG PO (08:18)
[2024-11-19] MEDS: FLOMAX 0.4 MG PO (08:18)
[2024-11-19] MEDS: FARXIGA 10 MG PO (08:18)
[2024-11-19] MEDS: ANCEF 10 IV ×3 (08:18→23:12)
[2024-11-19] MEDS: PACERONE 200 MG PO (08:19)
[2024-11-19] MEDS: PROTONIX 40 MG PO (08:19)
[2024-11-19] MEDS: NEURONTIN 100 MG PO ×3 (08:19→21:00)
[2024-11-19] MEDS: PLAVIX 75 MG PO (08:19)
[2024-11-19] MEDS: COLACE 100 MG PO ×2 (08:19→20:51)
[2024-11-19] MEDS: TOPROL XL 25 MG PO (08:19)
[2024-11-19] MEDS: THERAGRAN 1 TABLET PO (08:19)
[2024-11-19] MEDS: NOVOLOG FLEXPEN-LOW RESISTANCE SC (08:24)
[2024-11-19 08:35] LABS: Glucose - Point of Care 114 mg/dl (70-99)
--- NOTE | 2024-11-19 10:02 | CM ---
Addendum entered by Irma Oliveira RN 11/19/24 14:18:
Plan home with [facility] for SN due to new wound VAC.
Plan follow up after seen by PT/OT.
Original Note:
Patient with RLE saphenous vein graft site infection s/p washout of infected graft site and placement wound VAC, Right pleural effusion s/p thoracentesis today. Wound VAC in place. Seen by wound care nurse - home wound VAC ordered. Receiving IV
Abx. Per nurse; A/O, patient sat on edge of bed yesterday.
Repeat message to Dr Koch requesting PT/OT Moustapha (original message 11/17).
Plan follow up after seen by PT/OT.
[2024-11-19] MEDS: ROXICODONE 5 MG PO (10:17)
[2024-11-19] MEDS: DILAUDID 0.25 MG IV (11:43)
[2024-11-19] MEDS: SILVER NITRATE APPLICATOR 6 EACH TOPICAL (11:43)
--- NOTE | 2024-11-19 12:03 | WOUNDNOTE ---
[employer] RN note: Changed patient's RLE wound vac along with CT POP Lezama and Rufina. Slow oozing of sanguinous blood noted. CT PA Lise cauterized bleeding areas with silver nitrate sticks. Patient was medicated for pain by RN Wendy. Patient
tolerated dressing change fairly well. R medial knee wound clean. Sacral ulcer clean. There is a slit in the granulation tissue proximally that is deeper (not new) suspect it could be to the bone. [place] texted Dr. Shin noting sacral ulcer could be
to the bone; defer to ID if imaging to r/o osteomyelitis appropriate; pelvic x ray was done 08/2024. Next RLE vac dressing change due Sunday. [facility] Heels off bed with pillow. Patient turned to R semi side lying
position. present.
[2024-11-19] MEDS: NOVOLOG FLEXPEN-LOW RESISTANCE 1 UNITS SC ×2 (12:17→17:17)
[2024-11-19 12:28] LABS: Glucose - Point of Care 194 mg/dl (70-99)
--- NOTE | 2024-11-19 12:42 | PTCARENOTE ---
Rec'd pt this AM. OOB x1 to chair and bathroom. Medicated for wound care. Wound vac dressing changed by CT PA and WC RN. Spouse at bedside. Eating meals, reminders to turn to get off the sacrum provided. Pt downgraded to tele. Report given to Carey
on 3W. Awaiting delivery of airbed to room on 3 and then pt will be transferred.
--- NOTE | 2024-11-19 14:20 | W.PN.HOSP.TC ---
Today's Communication/Plan
-
Assessment / Plan
Assessment / Plan
General: No Apparent Distress, Comfortable and Conversant
HEENT: NormoCephalic, Moist mucous membranes, Atraumatic
Respiratory: Clear and Non Labored Respirations
Cardiac: S1/S2 and Regular Rhythm; No Rub or Gallop, audible diastolic click
GI: Soft, Non Tender, Non Distended and Normal Bowel Sounds
Musculoskeletal: No Edema, right lower extremity saphenectomy with wound VAC in place
Skin: Warm and dry
: NO Becerra
Neuro: Awake, Alert, Nonfocal/grossly intact
Psych: Calm and Intact Judgment/Insight
Mr. Benavidez is a 74-year-old male with a medical history of CAD (status post CABG x 3 in 2008, emergent salvage 08/13/2024 with right saphenous graft to LAD after DE LOS SANTOS dissection), aortic stenosis (status post mechanical AVR, on warfarin with INR goal
2.5-3.5), HFmrEF, hypertension, and insulin-dependent diabetes mellitus who presented with right leg saphenectomy site infection and hematoma.
Right lower extremity saphenous vein graft site infection:
- Wound cultures growing pansensitive E. coli, will transition to antibiotic coverage with cefazolin tonight
- Appreciate ID guidance
- Cardiothoracic surgery performed wound evaluation and washout of infected graft site 11/17, patient tolerated procedure well, wound VAC in place, tentative plan is for wound VAC change later today 11/19
- Pain control as needed
Right pleural effusion:
- Status post thoracentesis 11/17 with 1.2 L straw-colored pleural fluid drained prior to holding prematurely due to development of chest pain
- Serum studies exudative by lights criteria
- Continuing antibiotics with Zosyn, follow-up cultures
- Also continuing diuresis
Chronic HFrEF:
- Continue daily oral Bumex
- Beta-blockade with metoprolol succinate 25 mg daily
- Suspect not on afterload reduction due to baseline hypotension
- Continue Farxiga
CAD:
- Extensive history including CABG x 3 in 2009 and recent emergent salvaged 08/13/2024 with a right saphenous graft following DE LOS SANTOS dissection
- Now with right saphenectomy site infection and possible hematoma, cardiothoracic surgery following, patient is status post washout and wound VAC
A-fib:
- Currently controlled
- Continue amiodarone and metoprolol succinate
- Holding warfarin pending procedures
Mechanical AVR:
- Typically INR goal is 2.5-3.5 although currently holding anticoagulation pending procedures
DVT prophylaxis: INR currently supratherapeutic
CODE STATUS: Full code
Total time spent on today's encounter was 45 minutes
Anticipated Discharge: 24 - 48 hours
Subjective/Interval History
-
Date of Service: November 19, 2024
Patient was seen and examined at bedside this morning. Awaiting wound VAC exchange. Complains of some ongoing back pain that he attributes to sleeping position.
Objective Data
-
Labs:
Laboratory Results
11/19/24
05:06
WBC 9.4
Hgb 10.0 L
Hct 31.7 L
Plt Count 230
PT 39.2 H
INR 4.00
Sodium 140
Potassium 3.5
Chloride 107
Carbon Dioxide 29
BUN 22 H
Creatinine 1.1
Glucose 116 H
Calcium 8.3 L
Total Bilirubin 0.5
AST 45
ALT 33
Alkaline Phosphatase 139 H
Vital Signs:
Vital Signs
Temp Pulse Resp BP Pulse Ox
98.1 F 57 18 126/70 95
11/19/24 13:33 11/19/24 13:33 11/19/24 13:33 11/19/24 13:33 11/19/24 13:33
I&O
11/18/24 11/19/24 11/20/24
06:59 06:59 06:59
Intake Total 120 / 120 100 / 100
Output Total 1250 / 1250 850 / 850 400 / 400
Balance -1130 / -1130 -750 / -750 -400 / -400
Review of Systems
-
History Source: Patient
All other systems: Reviewed and negative
Musculoskeletal: Reports Joint Pain (Back pain, right saphenectomy site pain)
Physical Exam
-
General: No Apparent Distress
--- NOTE | 2024-11-19 14:25 | W.PN.ID1 ---
Date of Service
Date of Service: November 19, 2024
Today's Communication
- Narrowed Zosyn to cefazolin.
- At time of discharge, transition to cephalexin 500 mg po qid through 11/28.
Assessment / Plan
# Right medial leg saphenectomy site infected hematoma
# Leukocytosis resolved
- Abscess cx E. coli (herrera-sensitive)
- 11/17 s/p OR I+D of large abscess cavity with scant residual purulence, wound vac placment
- Narrowed Zosyn to cefazolin.
- At time of discharge, transition to cephalexin 500 mg po qid through 11/28.
# Parapneumonic right pleural effusion
# Chronic dry cough since post redo-CABG in Aug 2024
- 11/17 s/p thoracentesis 1.2L straw-colored fluid
Pleural fluid: exudative.
Cx neg to date
- At time of discharge, transition cefazolin to cephalexin 500 mg po qid through 11/28.
# Stage IV sacral decubitus- present on admission
- Wound is clean without acute infection
- He follows with Dr. Gonzales at [facility]. I reviewed his notes.
Wound continues to heal nicely and therefore unlikely underlying osteo.
No indication for long course IV abx.
Follow up at [facility].
# Conditions [employer]
Diabetes mellitus
Hypertension
Dyslipidemia
Mechanical aortic valve replacement
CAD history CABG and stents
DE LOS SANTOS dissection during PCI s/p emergent redo CABG SVG to LAD, 08/13/24
CABG complicated by RV laceration by retained sternal wire s/p extensive repair 08/13/24
Afib
Spinal stenosis
tremors
Chief Complaint
-: Cellulitis
Subjective / Review of Systems
Chronic cough stable.
No diarrhea.
Vital Signs / Physical Exam
Vital Signs
Vital Signs
Temp Pulse Resp BP Pulse Ox
98.1 F 57 18 126/70 95
11/19/24 13:55 11/19/24 13:55 11/19/24 13:55 11/19/24 13:55 11/19/24 13:55
Physical Exam
Constitutional: No Acute Distress and Comfortable
Eyes: No Conjunctival Hemorrhage and Sclera Anicteric
Cardiovascular: Regular Rate and S1/S2
Pulmonary: Rales (right base)
Gastrointestinal: Soft, Non Tender, Non Distended and Normal Bowel Sounds
Extremities: Negative Edema
Wound: Other (reviewed today's wound photos: right medial leg wound clean with bleeding; Sacrum wound stage IV with clean granulating tissue)
Neurological: AO x 3
Objective Data
Lab Data
Lab Results
11/19/24 05:06
11/19/24 05:06
PT 39.2 Sec (11.4-14.6) H 11/19/24 05:06
INR 4.00 11/19/24 05:06
APTT Cancelled 11/16/24 12:58
Estimated Creat Clear 64 ml/min 11/19/24 05:06
Total Bilirubin 0.5 mg/dl (0.2-1.3) 11/19/24 05:06
AST 45 U/L (17-59) 11/19/24 05:06
ALT 33 U/L (0-50) 11/19/24 05:06
Alkaline Phosphatase 139 U/L (38-126) H 11/19/24 05:06
Most recent labs reviewed.
Micro Results:
11/17/24 15:02 Body Fluid Culture - Preliminary
Pleural Fluid No Growth After 48 Hours
Gram Stain - Preliminary
11/16/24 14:22 Blood Culture - Preliminary
Blood/Venous No Growth in 48 hours- Final report to follow
11/16/24 14:25 Blood Culture - Preliminary
Blood/Venous No Growth in 48 hours- Final report to follow
11/16/24 14:22 Wound Culture - Final
Abscess Escherichia coli
Gram Stain - Final
11/16/24 20:17 MRSA Screen - Final
Nose No Methicillin Resistant Staphylococcus aureus isolated.
11/16/24 CT RLE: Collection containing high density packing material within the posterior medial soft tissues of the right lower leg at and above the level of the knee joint measuring 7.5 x 1.8 x 2.4 cm in size. A small tract contiguous with this
collection extends through the skin surface with overlying bandage material in place. Surrounding inflammatory fat stranding. No separate rim-enhancing fluid collection. Circumferential edema about the lower leg, and edema along the anterolateral
lower thigh.
11/16/24 CXR: Moderate right pleural effusion.
11/18/24 CXR: Small right pleural effusion
Care Review
Plan reviewed with: Nurse (Wound nurse Sylwia)
[2024-11-19 16:31] LABS: Glucose - Point of Care 155 mg/dl (70-99)
[2024-11-19] MEDS: ZETIA 10 MG PO (17:16)
[2024-11-19] MEDS: VITAMIN D3 (cholecalciferol) 25 MCG PO (17:16)
[2024-11-19] MEDS: LIPITOR 40 MG PO (17:16)
[2024-11-19] MEDS: LANTUS 0.2 UNITS SC (17:16)
[2024-11-19 21:20] LABS: Glucose - Point of Care 197 mg/dl (70-99)
[2024-11-19] MEDS: DESYREL 50 MG PO (21:50)
--- NOTE | 2024-11-19 23:29 | PTCARENOTE ---
Patient stated that it was his preference to brush his teeth in the morning because he was tired and wanted to go to sleep.
[2024-11-20] VITALS (8 sets, daily range): BP systolic 110–131; BP diastolic 51–71; PULSE 55; O2SAT 96; BMI 28.3; BMI 26.4
[2024-11-20 07:12] LABS: % Basophils 0.3 % (0-2); % Eosinophils 1.6 % (0-6); % Immature Granulocytes 0.3 % (0-0.5); % Monocytes 8.7 % (1.7-9.3); % Neutrophils 71.1 % (42.2-75.2); Absolute Eosinophils 0.1 10^3/uL (0-0.7); Absolute Lymphocytes 1.6 10^3/uL (1.2-3.4); Absolute Monocytes 0.8 10^3/uL (0.1-0.6); Absolute Neutrophils 6.4 10^3/uL (1.4-6.5); Hematocrit 33.9 % (39.0-52.0); Hemoglobin 10.6 g/dL (13.0-18.0); Mean Corp Hgb Conc. 31.3 g/dL (33.0-37.0); Mean Corpuscular Hgb 26.6 pg (27.0-31.0); Mean Corpuscular Volume 85.2 fL (80.0-94.0); Nucleated Red Blood Cells % 0 % (-); Platelet Count 238 10^3/uL (130-400); Red Blood Cell Count 3.98 10^6/uL (4.70-6.10)
[2024-11-20 07:19] LABS: INR 2.83; PT 30.1 Sec (11.4-14.6)
[2024-11-20 07:40] LABS: ALT (SGPT) 22 U/L (0-50); AST (SGOT) 33 U/L (17-59); Albumin 2.9 g/dl (3.5-5.0); Alkaline Phosphatase 127 U/L (38-126); Blood Urea Nitrogen 18 mg/dl (9-20); Calcium 8.5 mg/dl (8.4-10.2); Carbon Dioxide 35 mmol/L (22-30); Chloride 105 mmol/L (98-107); Estimated Creatinine Clearance 70 ml/min; Glucose 118 mg/dl (70-99); Potassium 3.3 mmol/L (3.5-5.1); Sodium 141 mmol/L (135-145); Total Bilirubin 0.4 mg/dl (0.2-1.3); Total Protein 6.7 g/dl (6.3-8.2); eGFR > 60.00
[2024-11-20] MEDS: ANCEF 10 IV ×2 (07:58→15:50)
[2024-11-20] MEDS: COLACE 100 MG PO ×2 (08:00→20:19)
[2024-11-20] MEDS: BUMEX 2 MG PO (08:00)
[2024-11-20] MEDS: FARXIGA 10 MG PO (08:00)
[2024-11-20] MEDS: PLAVIX 75 MG PO (08:00)
[2024-11-20] MEDS: NEURONTIN 100 MG PO ×3 (08:00→21:59)
[2024-11-20] MEDS: TOPROL XL 25 MG PO (08:00)
[2024-11-20] MEDS: FLOMAX 0.4 MG PO (08:00)
[2024-11-20] MEDS: PROTONIX 40 MG PO (08:00)
[2024-11-20] MEDS: THERAGRAN 1 TABLET PO (08:00)
[2024-11-20] MEDS: PACERONE 200 MG PO (08:01)
[2024-11-20 08:05] LABS: Glucose - Point of Care 118 mg/dl (70-99)
[2024-11-20] MEDS: NOVOLOG FLEXPEN-LOW RESISTANCE SC (08:24)
--- NOTE | 2024-11-20 09:43 | W.PN.ID1 ---
Date of Service
Date of Service: November 20, 2024
Today's Communication
- continue cefazolin.
- At time of discharge, transition to cephalexin 500 mg po qid through 11/28.
Assessment / Plan
# Right medial leg saphenectomy site infected hematoma
# Leukocytosis resolved
- Abscess cx E. coli (herrera-sensitive)
- 11/17 s/p OR I+D of large abscess cavity with scant residual purulence, wound vac placement
- continue cefazolin.
- At time of discharge, transition to cephalexin 500 mg po qid through 11/28.
# Parapneumonic right pleural effusion
# Chronic dry cough since post redo-CABG in Aug 2024
- 11/17 s/p thoracentesis 1.2L straw-colored fluid
Pleural fluid: exudative.
Cx neg to date
- At time of discharge, transition cefazolin to cephalexin 500 mg po qid through 11/28.
# Stage IV sacral decubitus- present on admission
- Wound is clean without acute infection
- He follows with Dr. Gonzales at [facility]. I reviewed his notes.
Wound continues to heal nicely and therefore unlikely underlying osteo.
No indication for long course IV abx.
Follow up at [facility].
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
Diabetes mellitus
Hypertension
Dyslipidemia
Mechanical aortic valve replacement
CAD history CABG and stents
DE LOS SANTOS dissection during PCI s/p emergent redo CABG SVG to LAD, 08/13/24
CABG complicated by RV laceration by retained sternal wire s/p extensive repair 08/13/24
Afib
Spinal stenosis
tremors
Chief Complaint
-: Cellulitis
Subjective / Review of Systems
afebrile
bp stable
tolerating current therapies
doing turns
Vital Signs / Physical Exam
Vital Signs
Vital Signs
Temp Pulse Resp BP Pulse Ox
98.1 F 57 17 131/63 96
11/20/24 07:28 11/20/24 07:28 11/20/24 07:28 11/20/24 07:28 11/20/24 07:28
Physical Exam
Constitutional: No Acute Distress and Chronically Ill
Cardiovascular: Regular Rate and S1/S2; Negative Murmur or Rub
Pulmonary: Clear and Symmetric; Negative Wheezes or Rales
Gastrointestinal: Soft, Non Tender, Non Distended and Normal Bowel Sounds
Skin: Warm and Dry; Negative Rash or Jaundice
Wound: Other (wound vac in place - some surrounding erythema at the distal end)
Objective Data
Lab Data
Lab Results
11/20/24 06:35
11/20/24 06:35
PT 30.1 Sec (11.4-14.6) H 11/20/24 06:35
INR 2.83 11/20/24 06:35
APTT Cancelled 11/16/24 12:58
Estimated Creat Clear 70 ml/min 11/20/24 06:35
Total Bilirubin 0.4 mg/dl (0.2-1.3) 11/20/24 06:35
AST 33 U/L (17-59) 11/20/24 06:35
ALT 22 U/L (0-50) 11/20/24 06:35
Alkaline Phosphatase 127 U/L (38-126) H 11/20/24 06:35
Most recent labs reviewed.
Wound/abscess/other Cult Final 11/18/24-1149
Few Escherichia coli
Organism 1 Escherichia coli
1. Escherichia coli
M.I.C. RX
--------- ---
Amoxicillin/Potas. Clavulanate <=8/4 S
Ampicillin <=8 S
Ampicillin/Sulbactam <=4/2 S
Aztreonam <=4 S
Cefazolin <=2 S
Ertapenem <=0.5 S
Ciprofloxacin <=0.25 S
Gentamicin <=2 S
Meropenem <=1 S
Piperacillin/Tazobactam <=8 S
Tetracycline <=4 S
Tobramycin <=2 S
Trimethoprim/Sulfamethoxazole <=2/38 S
Micro Results:
11/16/24 14:25 Blood Culture - Preliminary
Blood/Venous No Growth in 72 hours- Final report to follow
11/16/24 14:22 Blood Culture - Preliminary
Blood/Venous No Growth in 72 hours- Final report to follow
11/17/24 15:02 Body Fluid Culture - Preliminary
Pleural Fluid No Growth After 48 Hours
Gram Stain - Preliminary
11/16/24 14:22 Wound Culture - Final
Abscess Escherichia coli
Gram Stain - Final
11/16/24 20:17 MRSA Screen - Final
Nose No Methicillin Resistant Staphylococcus aureus isolated.
11/16/24 CT RLE: Collection containing high density packing material within the posterior medial soft tissues of the right lower leg at and above the level of the knee joint measuring 7.5 x 1.8 x 2.4 cm in size. A small tract contiguous with this
collection extends through the skin surface with overlying bandage material in place. Surrounding inflammatory fat stranding. No separate rim-enhancing fluid collection. Circumferential edema about the lower leg, and edema along the anterolateral
lower thigh.
11/16/24 CXR: Moderate right pleural effusion.
11/18/24 CXR: Small right pleural effusion
--- NOTE | 2024-11-20 10:24 | CM ---
Patient seen at bedside with
[facility] referral in [facility]
Patient with wound vac
CXR TODAY
PLAN: Home with [facility] when medically stable
[2024-11-20 11:43] LABS: Glucose - Point of Care 181 mg/dl (70-99)
[2024-11-20] MEDS: NOVOLOG FLEXPEN-LOW RESISTANCE 1 UNITS SC (11:44)
--- NOTE | 2024-11-20 12:22 | W.PN.HOSP.TC ---
Today's Communication/Plan
-
Assessment / Plan
Assessment / Plan
General: No Apparent Distress, Comfortable and Conversant
HEENT: NormoCephalic, Moist mucous membranes, Atraumatic
Respiratory: Clear and Non Labored Respirations
Cardiac: S1/S2 and Regular Rhythm; No Rub or Gallop, audible diastolic click
GI: Soft, Non Tender, Non Distended and Normal Bowel Sounds
Musculoskeletal: No Edema, right lower extremity saphenectomy with wound VAC in place
Skin: Warm and dry
: NO Becerra
Neuro: Awake, Alert, Nonfocal/grossly intact
Psych: Calm and Intact Judgment/Insight
Mr. Benavidez is a 74-year-old male with a medical history of CAD (status post CABG x 3 in 2008, emergent salvage 08/13/2024 with right saphenous graft to LAD after DE LOS SANTOS dissection), aortic stenosis (status post mechanical AVR, on warfarin with INR goal
2.5-3.5), HFmrEF, hypertension, and insulin-dependent diabetes mellitus who presented with right leg saphenectomy site infection and hematoma.
Right lower extremity saphenous vein graft site infection:
- Wound cultures growing pansensitive E. coli, have transitioned antibiotic coverage to cefazolin
- Appreciate ID guidance
- Cardiothoracic surgery performed wound evaluation and washout of infected graft site 11/17, patient tolerated procedure well, wound VAC was replaced yesterday 11/19 with some bleeding at the site which was cauterized and now controlled
- Pain control as needed
Right pleural effusion:
- Status post thoracentesis 11/17 with 1.2 L straw-colored pleural fluid drained prior to holding prematurely due to development of chest pain
- Serum studies exudative by lights criteria, however cultures are negative
- Continuing antibiotics with cefazolin
- Also continuing diuresis
Chronic HFrEF:
- Continue daily oral Bumex
- Beta-blockade with metoprolol succinate 25 mg daily
- Suspect not on afterload reduction due to baseline hypotension
- Continue Farxiga
CAD:
- Extensive history including CABG x 3 in 2009 and recent emergent salvaged 08/13/2024 with a right saphenous graft following DE LOS SANTOS dissection
- Now with right saphenectomy site infection and possible hematoma, cardiothoracic surgery following, patient is status post washout and wound VAC
A-fib:
- Currently controlled
- Continue amiodarone and metoprolol succinate
- Holding warfarin pending procedures
Mechanical AVR:
- Typically INR goal is 2.5-3.5 although have been holding anticoagulation for recent procedures
- No further procedures planned, INR in goal range at 2.8, will restart home warfarin
DVT prophylaxis: INR currently therapeutic, continue warfarin
CODE STATUS: Full code
Total time spent on today's encounter was 45 minutes
Anticipated Discharge: 24 - 48 hours
Subjective/Interval History
-
Date of Service: November 20, 2024
Patient was seen and examined at bedside this morning. Wound VAC was changed yesterday with some bleeding which was cauterized. Patient is feeling okay now.
Objective Data
-
Labs:
Laboratory Results
11/20/24
06:35
WBC 9.0
Hgb 10.6 L
Hct 33.9 L
Plt Count 238
PT 30.1 H
INR 2.83
Sodium 141
Potassium 3.3 L
Chloride 105
Carbon Dioxide 35 H
BUN 18
Creatinine 1.0
Glucose 118 H
Calcium 8.5
Total Bilirubin 0.4
AST 33
ALT 22
Alkaline Phosphatase 127 H
Vital Signs:
Vital Signs
Temp Pulse Resp BP Pulse Ox
98.1 F 53 18 115/53 97
11/20/24 11:05 11/20/24 11:05 11/20/24 11:05 11/20/24 11:05 11/20/24 11:05
I&O
11/19/24 11/20/24 11/21/24
06:59 06:59 06:59
Intake Total 100 / 100 600 / 600
Output Total 850 / 850 1600 / 1600
Balance -750 / -750 -1000 / -1000
Review of Systems
-
History Source: Patient
All other systems: Reviewed and negative
Musculoskeletal: Reports Joint Pain (Right leg pain)
Physical Exam
-
General: No Apparent Distress
[2024-11-20] MEDS: KLOR-CON 40 MEQ PO (12:46)
[2024-11-20 16:17] LABS: Glucose - Point of Care 225 mg/dl (70-99)
[2024-11-20] MEDS: NOVOLOG FLEXPEN-LOW RESISTANCE 2 UNITS SC (16:53)
[2024-11-20] MEDS: LANTUS 0.2 UNITS SC (16:53)
[2024-11-20] MEDS: LIPITOR 40 MG PO (16:53)
[2024-11-20] MEDS: VITAMIN D3 (cholecalciferol) 25 MCG PO (16:53)
[2024-11-20] MEDS: ZETIA 10 MG PO (16:53)
[2024-11-20] MEDS: COUMADIN 5 MG PO (16:56)
[2024-11-20 21:23] LABS: Glucose - Point of Care 117 mg/dl (70-99)
[2024-11-20] MEDS: DESYREL 50 MG PO (21:59)
[2024-11-21] MEDS: ANCEF 10 IV ×2 (01:00→08:32)
[2024-11-21 03:00] VITALS: BP 121/55
[2024-11-21 05:59] VITALS: BMI 26.7
[2024-11-21 07:00] VITALS: BP 119/60
[2024-11-21 07:01] LABS: % Basophils 0.6 % (0-2); % Eosinophils 1.1 % (0-6); % Immature Granulocytes 0.6 % (0-0.5); % Lymphocytes 22.4 % (20.5-51.1); % Monocytes 8.1 % (1.7-9.3); % Neutrophils 67.2 % (42.2-75.2); Absolute Basophils 0.1 10^3/uL (0-0.2); Absolute Eosinophils 0.1 10^3/uL (0-0.7); Absolute Immature Granulocytes 0.1 10^3/uL (0-0.05); Absolute Monocytes 0.7 10^3/uL (0.1-0.6); Absolute Neutrophils 5.9 10^3/uL (1.4-6.5); Hematocrit 34.1 % (39.0-52.0); Hemoglobin 10.7 g/dL (13.0-18.0); Mean Corp Hgb Conc. 31.4 g/dL (33.0-37.0); Mean Corpuscular Hgb 26.6 pg (27.0-31.0); Mean Corpuscular Volume 84.8 fL (80.0-94.0); Mean Platelet Volume 9.7 fL (7.4-10.4); Nucleated Red Blood Cells % 0 % (-); Platelet Count 249 10^3/uL (130-400); Red Blood Cell Count 4.02 10^6/uL (4.70-6.10); White Blood Cell Count 8.8 10^3/uL (4.8-10.8)
[2024-11-21 07:04] LABS: INR 2.71; PT 29.2 Sec (11.4-14.6)
[2024-11-21 07:20] LABS: ALT (SGPT) 14 U/L (0-50); AST (SGOT) 32 U/L (17-59); Albumin 2.8 g/dl (3.5-5.0); Alkaline Phosphatase 137 U/L (38-126); Blood Urea Nitrogen 16 mg/dl (9-20); Calcium 8.5 mg/dl (8.4-10.2); Carbon Dioxide 32 mmol/L (22-30); Chloride 104 mmol/L (98-107); Estimated Creatinine Clearance 70 ml/min; Glucose 85 mg/dl (70-99); Potassium 3.2 mmol/L (3.5-5.1); Sodium 139 mmol/L (135-145); Total Bilirubin 0.5 mg/dl (0.2-1.3); Total Protein 6.4 g/dl (6.3-8.2); eGFR > 60.00
[2024-11-21 08:00] LABS: Glucose - Point of Care 96 mg/dl (70-99)
[2024-11-21] MEDS: NOVOLOG FLEXPEN-LOW RESISTANCE SC (08:30)
[2024-11-21] MEDS: TOPROL XL 25 MG PO (08:32)
[2024-11-21] MEDS: FLOMAX 0.4 MG PO (08:32)
[2024-11-21] MEDS: PACERONE 200 MG PO (08:33)
[2024-11-21] MEDS: PLAVIX 75 MG PO (08:33)
[2024-11-21] MEDS: PROTONIX 40 MG PO (08:33)
[2024-11-21] MEDS: BUMEX 2 MG PO (08:33)
[2024-11-21] MEDS: COLACE 100 MG PO (08:33)
[2024-11-21] MEDS: NEURONTIN 100 MG PO (08:33)
[2024-11-21] MEDS: THERAGRAN 1 TABLET PO (08:33)
[2024-11-21] MEDS: FARXIGA 10 MG PO (08:33)
[2024-11-21] MEDS: ROXICODONE 5 MG PO (10:18)
[2024-11-21] MEDS: KCL 40 MEQ PO (10:19)
[2024-11-21 11:13] VITALS: BP 115/52
[2024-11-21 11:50] LABS: Glucose - Point of Care 244 mg/dl (70-99)
--- NOTE | 2024-11-21 11:58 | CM ---
Addendum entered by Elena Marte 11/21/24 13:55:
tt from hospitalist dc today
IMM explained & signed.
WOCN to change vac to the home vac today
Annie liaison [facility] notified
PLAN: home with [facility]
to transport
Original Note:
Patient seen at bedside with
WOCN in with patient today
will need to have home vac placed at discharge
Referral in [facility] for [facility] - accepted
PLAN: home, with [facility] when stable
to transport
--- NOTE | 2024-11-21 12:01 | WOUNDNOTE ---
[facility] RN Note: Patient's RLE wound vac changed without bleeding. Wound appears clean with some local erythema mostly distally. Patient tolerated well. He was premedicated for pain by RN Lynn galvin. CT POP Lezama was in to evaluate wound. Changed
sacral dressing, distal periwound skin macerated. Updated Dr. Gonzales who was agreeable to change packing to silver alginate instead of iodoform gauze. Supplies given to patient. Will bring up home vac when discharge is confirmed for today.
[2024-11-21 12:05] VITALS: BP 115/52; PULSE 55; O2SAT 98
[2024-11-21] MEDS: NOVOLOG FLEXPEN-LOW RESISTANCE 2 UNITS SC (12:24)
--- NOTE | 2024-11-21 13:49 | W.PN.ID1 ---
Date of Service
Date of Service: November 21, 2024
Today's Communication
- At time of discharge, transition to cephalexin 500 mg po qid through 11/28.
Assessment / Plan
# Right medial leg saphenectomy site infected hematoma
# Leukocytosis resolved
- Abscess cx E. coli (herrera-sensitive)
- 11/17 s/p OR I+D of large abscess cavity with scant residual purulence, wound vac placement
- continue cefazolin.
- At time of discharge, transition to cephalexin 500 mg po qid through 11/28.
# Parapneumonic right pleural effusion
# Chronic dry cough since post redo-CABG in Aug 2024
- 11/17 s/p thoracentesis 1.2L straw-colored fluid
Pleural fluid: exudative.
Cx neg to date
- At time of discharge, transition cefazolin to cephalexin 500 mg po qid through 11/28.
# Stage IV sacral decubitus- present on admission
- Wound is clean without acute infection
- He follows with Dr. Gonzales at [facility]. I reviewed his notes.
Wound continues to heal nicely and therefore unlikely underlying osteo.
No indication for long course IV abx.
Follow up at [facility].
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
Diabetes mellitus
Hypertension
Dyslipidemia
Mechanical aortic valve replacement
CAD history CABG and stents
DE LOS SANTOS dissection during PCI s/p emergent redo CABG SVG to LAD, 08/13/24
CABG complicated by RV laceration by retained sternal wire s/p extensive repair 08/13/24
Afib
Spinal stenosis
tremors
Chief Complaint
-: Cellulitis
Subjective / Review of Systems
afebrile
bp stable
tolerating current therapies
Vital Signs / Physical Exam
Vital Signs
Vital Signs
Temp Pulse Resp BP Pulse Ox
97.7 F 55 16 115/52 98
11/21/24 11:13 11/21/24 11:13 11/21/24 11:13 11/21/24 11:13 11/21/24 11:13
Physical Exam
Constitutional: No Acute Distress and Chronically Ill
Cardiovascular: Regular Rate and S1/S2; Negative Murmur or Rub
Pulmonary: Clear and Symmetric; Negative Wheezes or Rales
Gastrointestinal: Soft, Non Tender, Non Distended and Normal Bowel Sounds
Skin: Warm and Dry; Negative Rash or Jaundice
Objective Data
Lab Data
Lab Results
11/21/24 06:30
11/21/24 06:30
PT 29.2 Sec (11.4-14.6) H 11/21/24 06:30
INR 2.71 11/21/24 06:30
APTT Cancelled 11/16/24 12:58
Estimated Creat Clear 70 ml/min 11/21/24 06:30
Total Bilirubin 0.5 mg/dl (0.2-1.3) 11/21/24 06:30
AST 32 U/L (17-59) 11/21/24 06:30
ALT 14 U/L (0-50) 11/21/24 06:30
Alkaline Phosphatase 137 U/L (38-126) H 11/21/24 06:30
Most recent labs reviewed.
Micro Results:
11/16/24 14:22 Blood Culture - Preliminary
Blood/Venous No Growth in 4 days- Final report to follow
11/16/24 14:25 Blood Culture - Preliminary
Blood/Venous No Growth in 4 days- Final report to follow
11/17/24 15:02 Body Fluid Culture - Final
Pleural Fluid No Growth After 72 Hours
Gram Stain - Final
11/16/24 14:22 Wound Culture - Final
Abscess Escherichia coli
Gram Stain - Final
05/18/25 20:17 MRSA Screen - Final
Nose No Methicillin Resistant Staphylococcus aureus isolated.
11/16/24 CT RLE: Collection containing high density packing material within the posterior medial soft tissues of the right lower leg at and above the level of the knee joint measuring 7.5 x 1.8 x 2.4 cm in size. A small tract contiguous with this
collection extends through the skin surface with overlying bandage material in place. Surrounding inflammatory fat stranding. No separate rim-enhancing fluid collection. Circumferential edema about the lower leg, and edema along the anterolateral
lower thigh.
11/16/24 CXR: Moderate right pleural effusion.
11/18/24 CXR: Small right pleural effusion
--- NOTE | 2024-11-21 14:15 | WOUNDNOTE ---
[facility] RN note: Switched from hospital rental vac pump to patient's ready care Activac pump (serial #[id number]). Instructed patient and how to turn on/off home vac pump, how to clamp/disconnect tubing and reconnect/unclamp vac tubing, how to
change the home vac canister, how to trouble shoot alarms (i.e. air leak, canister full). Instructed patient and if shaneka bleeding occurs, to disconnect vac tubing, clamp tubing, turn off pump and call 911. Instructed couple to call or
/[employer] support 22/01 if the vac is not working properly. Couple aware the vac suction should not be off for more than 2 hours. Instructed pateint's sacral wound care. Supplies had been given. Patient given a small Z orestes fluidized
positioner to help off load sacrum. Patient has an appointment with Dr. Gonzales at [facility] on 12/02/24.
--- NOTE | 2024-11-21 14:25 | W.DCSUMMARY ---
Discharge Summary
Discharge Data
Date of Admission: 11/16/24
Date of Discharge: 11/21/24
Total time spent discharging patient (in min): 45
-
Pending Results: No
Hospital Course
Mr. Benavidez is a 74-year-old male with a medical history of CAD (status post CABG x 3 in 2008, emergent salvage 08/13/2024 with right saphenous graft to LAD after DE LOS SANTOS dissection), aortic stenosis (status post mechanical AVR, on warfarin with INR goal
2.5-3.5), HFmrEF, hypertension, and insulin-dependent diabetes mellitus who presented with right leg saphenectomy site infection and hematoma.
Cardiothoracic surgery performed wound evaluation and washout of infected graft site on 11/17. Patient tolerated procedure well and wound VAC dressing was replaced on 11/19 with some bleeding at the site which was controlled with chemical
cauterization. His antibiotic treatment was initially with vancomycin and Zosyn which was later narrowed to cefazolin based on wound cultures. He was followed by the infectious disease team who recommended transitioning to cephalexin 500 mg p.o. 4
times daily through 11/28 at time of discharge. He had a leukocytosis which resolved with above-mentioned treatment. Prior to discharge, his wound VAC dressing was replaced again on 11/21.
At the time of admission he developed shortness of breath. He was found to have a large right-sided pleural effusion. He underwent thoracentesis on 11/17 with 1.2 L of straw-colored pleural fluid removed. Studies showed the pleural fluid to be
exudative. He was continued on antibiotics. He initially had some chest pain at the time of the thoracentesis which resolved after the procedure. He remained hemodynamically stable, afebrile, and was saturating appropriately on room air.
He will need close follow-up with wound care for ongoing dressing changes and management of multiple wounds including at his saphenectomy site and his sacrum, which has been arranged. His home warfarin was initially held at the time of admission in
anticipation of wound exploration. His INR remained therapeutic and his home warfarin was restarted after planned procedures.
He will also need to follow-up with his primary care physician and with his cardiology team. At time of hospital discharge he was medically stable.
General: No Apparent Distress, Comfortable and Conversant
HEENT: NormoCephalic, Moist mucous membranes, Atraumatic
Respiratory: Clear and Non Labored Respirations
Cardiac: S1/S2 and Regular Rhythm; No Rub or Gallop, audible diastolic click
GI: Soft, Non Tender, Non Distended and Normal Bowel Sounds
Musculoskeletal: No Edema, right lower extremity saphenectomy with wound VAC in place
Skin: Warm and dry
: NO Becerra
Neuro: Awake, Alert, Nonfocal/grossly intact
Psych: Calm and Intact Judgment/Insight
Discharge Plan
-
Patient Disposition: Home with Home Care
Discharge Diagnosis/Procedures: Right saphenectomy site infection
Diet: Diabetic, Carb Controlled
Activity: As tolerated
Activity Restrictions/Additional Instructions:
Wound Care Instructions
Sacral ulcer-clean with saline, pack with a strip of silver alginate, cover with gauze pad/s and silicone border foam, change daily and as needed for drainage.
R medial leg wound-Wound vac therapy, use black foam, Change every 48 - 72 hours (i. e. Qcayhpi-Wybujgjiqt-Vwtliff) and prn if unable to obtain a seal. Low Intensity, Continuous at 125 mmHg. Upon discharge or transfer to another facility, remove VAC
foam and apply NS moistened gauze dressing unless home VAC unit available. Call [employer] or [employer] support 22/01 for vac pump concerns [phone].
Elevate heels off bed with pillow/s.
Pressure redistributing chair cushion (i.e. Air, gel).
Follow up with CT surgeon.
Follow up at wound care center call for an appointment.
Mr. Benavidez is a 74-year-old male with a medical history of CAD (status post CABG x 3 in 2008, emergent salvage 08/13/2024 with right saphenous graft to LAD after DE LOS SANTOS dissection), aortic stenosis (status post mechanical AVR, on warfarin with INR goal
2.5-3.5), HFmrEF, hypertension, and insulin-dependent diabetes mellitus who presented with right leg saphenectomy site infection and hematoma.
Cardiothoracic surgery performed wound evaluation and washout of infected graft site on 11/17. Patient tolerated procedure well and wound VAC dressing was replaced on 11/19 with some bleeding at the site which was controlled with chemical
cauterization. His antibiotic treatment was initially with vancomycin and Zosyn which was later narrowed to cefazolin based on wound cultures. He was followed by the infectious disease team who recommended transitioning to cephalexin 500 mg p.o. 4
times daily through 11/28 at time of discharge. He had a leukocytosis which resolved with above-mentioned treatment. Prior to discharge, his wound VAC dressing was replaced again on 11/21.
At the time of admission he developed shortness of breath. He was found to have a large right-sided pleural effusion. He underwent thoracentesis on 11/17 with 1.2 L of straw-colored pleural fluid removed. Studies showed the pleural fluid to be
exudative. He was continued on antibiotics. He initially had some chest pain at the time of the thoracentesis which resolved after the procedure. He remained hemodynamically stable, afebrile, and was saturating appropriately on room air.
He will need close follow-up with wound care for ongoing dressing changes and management of multiple wounds including at his saphenectomy site and his sacrum, which has been arranged. His home warfarin was initially held at the time of admission in
anticipation of wound exploration. His INR remained therapeutic and his home warfarin was restarted after planned procedures.
He will also need to follow-up with his primary care physician and with his cardiology team. At time of hospital discharge he was medically stable.
Referrals:
Kyrie Asher MD [Family Provider] -
Prescriptions:
New
alprazolam 0.5 mg Tablet
0.5 mg PO Q6HPRN PRN (Reason: anxiety) Qty: 0 0RF
clotrimazole [Athlete's Foot (clotrimazole)] 1 % Cream
1 applic topical BID Qty: 0 0RF
Chloraseptic Sore Throat 6-10 mg Lozenge
1 whit PO Q4HPRN PRN (Reason: cough) Qty: 0 0RF
pantoprazole 40 mg Tablet,Delayed Release (Dr/Ec)
40 mg PO DAILY Qty: 0 0RF
oxycodone 5 mg Tablet
5 mg PO Q4HPRN PRN (Reason: severe pain) Qty: 12 0RF
cephalexin 500 mg capsule
500 mg PO QID 4 Days Qty: 16 0RF
Continued
cholecalciferol (vitamin D3) 1,000 UNITS tablet
1,000 units PO QPM
fluticasone propionate 50 mcg/actuation [place],Suspension
2 spray INTRANASAL BIDPRN PRN (Reason: allergies)
atorvastatin 40 mg Tablet
40 mg PO QPM
therapeutic multivitamin Tablet
1 tab PO DAILY
acetaminophen 500 mg Tablet
1,000 mg PO DAILYPRN PRN (Reason: mild pain)
insulin aspart U-100 100 unit/mL (3 mL) Insulin Pen
1 sliding scale dose SC DIRECTED
Saline Nasal 0.65 % Aerosol,[place]
1 spray INTRANASAL DAILYPRN PRN (Reason: dry sinuses)
coenzyme Q10 200 mg Capsule
200 mg PO QPM
insulin glargine [Lantus Solostar U-100 Insulin] 100 unit/mL (3 mL) Insulin Pen
20 unit SC QPM
trazodone 50 mg tablet
50 mg PO HS PRN (Reason: insomnia)
warfarin [Jantoven] 5 mg tablet
5 mg PO QPM
metoprolol succinate 25 mg tablet extended release 24 hr
25 mg PO DAILY
docusate sodium 100 mg Capsule
100 mg PO BID 30 Days Qty: 60 0RF
Januvia 100 mg Tablet
100 mg PO DAILY 30 Days Qty: 30 0RF
amiodarone 200 mg Tablet
200 mg PO DAILY 30 Days Qty: 30 0RF
clopidogrel 75 mg Tablet
75 mg PO DAILY Qty: 30 0RF
tamsulosin 0.4 mg Capsule
0.4 mg PO DAILY 30 Days Qty: 30 0RF
ezetimibe [Zetia] 10 mg Tablet
10 mg PO QPM 30 Days Qty: 30 0RF
dapagliflozin propanediol 10 mg Tablet
10 mg PO DAILY 30 Days Qty: 30 0RF
bumetanide 2 mg Tablet
2 mg PO DAILY 30 Days Qty: 30 0RF
gabapentin 100 mg Capsule
100 mg PO TID 30 Days Qty: 90 0RF
Discharge Orders:
Discharge Patient (As Directed); Ordered 11/21/24
Ordered By: Kaz Koch
Discharge Date and Time
Print Language: CITIZEN OF [place]
--- NOTE | 2024-11-21 14:48 | W.PN.UPDATE ---
Update Note
Progress Note Update
Patient wound vac changed with wound care today. Please continue to change q48hrs. Patient will follow up with Dr. Delatorre on 12/02 @ 6315. Outpatient wound care discussed with Sylwia PLASENCIA.
[2024-11-21 14:57] VITALS: BP 132/64
--- NOTE | 2024-11-21 15:30 | WOUNDNOTE ---
WOC RN note: Fax patient signed Ready home vac proof of delivery form to Gisela Cifuentes from [facility].
== END 2024-11-21 15:17 | disposition home health service (06) | DRG 314 ==
LOC: 3 WEST ACU 13:37
PROVIDERS: Physician Assistant Medical; Radiology Vascular & Interventional Radiology; ADMITTING PHYSICIAN Hospitalist; ATTENDING PHYSICIAN Internal Medicine; CONSULT PHYSICIAN Internal Medicine Infectious Disease; EMERGENCY PHYSICIAN Emergency Medicine; FAMILY PHYSICIAN Family Medicine; OTHER PHYSICIAN Thoracic Surgery (Cardiothoracic Vascular Surgery)
PROC: 0W993ZZ Drainage of Right Pleural Cavity, Percutaneous Approach (ICD-10-PCS; 2024-11-17)
PROC: 3E10X8Z Irrigation of Skin and Mucous Membranes using Irrigating Substance (ICD-10-PCS; 2024-11-17)
DX: T82.7XXA Infection and inflammatory reaction due to other cardiac and vascular devices, implants and grafts, initial encounter (principal); L89.154 Pressure ulcer of sacral region, stage 4; E87.1 Hypo-osmolality and hyponatremia; I50.42 Chronic combined systolic (congestive) and diastolic (congestive) heart failure; L03.115 Cellulitis of right lower limb; J90 Pleural effusion, not elsewhere classified; T85.79XA Infection and inflammatory reaction due to other internal prosthetic devices, implants and grafts, initial encounter; E87.6 Hypokalemia; Z79.02 Long term (current) use of antithrombotics/antiplatelets; Z79.01 Long term (current) use of anticoagulants; I48.0 Paroxysmal atrial fibrillation; I11.0 Hypertensive heart disease with heart failure; E11.36 Type 2 diabetes mellitus with diabetic cataract; Z79.4 Long term (current) use of insulin; D64.9 Anemia, unspecified; F41.9 Anxiety disorder, unspecified; E66.9 Obesity, unspecified; Z68.26 Body mass index [BMI] 26.0-26.9, adult; I25.10 Atherosclerotic heart disease of native coronary artery without angina pectoris; Z95.1 Presence of aortocoronary bypass graft
CPT/HCPCS: 32555; 71045; 71046; 73700; 80053; 82945; 82962; 83036; 83615; 83880; 83986; 84157; 84484; 85025; 85610; 86850; 86900; 86901; 87015; 87040; 87070; 87077; 87186; 87205; 89051; 93005; 93306; 97116; 97163; 97167; 97530; 99285

== ENCOUNTER → 2024-12-02 13:17 | Outpatient (REF) | payer OTHER, SELFPAY | LOC: RAD 13:17 | PROVIDERS: ATTENDING PHYSICIAN Internal Medicine Cardiovascular Disease; FAMILY PHYSICIAN Family Medicine | DX: Z95.1 Presence of aortocoronary bypass graft (principal); J90 Pleural effusion, not elsewhere classified | CPT/HCPCS: 71046 ==

== ENCOUNTER → 2024-12-02 14:13 | Outpatient (REF) | payer OTHER, SELFPAY | LOC: WOUND 14:13 | PROVIDERS: ATTENDING PHYSICIAN Surgery; FAMILY PHYSICIAN Family Medicine | DX: L89.154 Pressure ulcer of sacral region, stage 4 (principal); S81.001A Unspecified open wound, right knee, initial encounter; I73.9 Peripheral vascular disease, unspecified; E11.65 Type 2 diabetes mellitus with hyperglycemia; Z95.2 Presence of prosthetic heart valve; Z95.1 Presence of aortocoronary bypass graft; Z79.01 Long term (current) use of anticoagulants; Y84.8 Other medical procedures as the cause of abnormal reaction of the patient, or of later complication, without mention of misadventure at the time of the procedure | CPT/HCPCS: 11042 ==

== ENCOUNTER → 2024-12-03 10:40 | Outpatient (REF) | payer OTHER, SELFPAY ==
[2024-12-03 11:09] VITALS: BP 138/71; BP_SYST 53
[2024-12-03 11:22] LABS: INR 2.36; PT 26.3 Sec (11.4-14.6)
[2024-12-03 12:21] VITALS: BP 123/76; BP_SYST 54
== END ==
LOC: RADI 10:40
PROVIDERS: Physician Assistant; ATTENDING PHYSICIAN Thoracic Surgery (Cardiothoracic Vascular Surgery); FAMILY PHYSICIAN Family Medicine
DX: J90 Pleural effusion, not elsewhere classified (principal)
CPT/HCPCS: 32555; 36415; 71045; 85610

== ENCOUNTER → 2024-12-09 10:57 | Outpatient (REF) | payer OTHER, SELFPAY | LOC: WOUND 10:57 | PROVIDERS: ATTENDING PHYSICIAN Surgery; FAMILY PHYSICIAN Family Medicine | DX: L89.154 Pressure ulcer of sacral region, stage 4 (principal); S81.001A Unspecified open wound, right knee, initial encounter; I73.9 Peripheral vascular disease, unspecified; E11.65 Type 2 diabetes mellitus with hyperglycemia; I10 Essential (primary) hypertension; Z95.2 Presence of prosthetic heart valve; Z79.01 Long term (current) use of anticoagulants; Z95.1 Presence of aortocoronary bypass graft; X58.XXXA Exposure to other specified factors, initial encounter | CPT/HCPCS: 11042 ==

== ENCOUNTER → 2024-12-16 12:23 | Outpatient (REF) | payer OTHER, SELFPAY | LOC: RAD 12:23 | PROVIDERS: ATTENDING PHYSICIAN Thoracic Surgery (Cardiothoracic Vascular Surgery); FAMILY PHYSICIAN Family Medicine | DX: J90 Pleural effusion, not elsewhere classified (principal); Z98.890 Other specified postprocedural states | CPT/HCPCS: 71046 ==

== ENCOUNTER → 2024-12-18 12:43 | Outpatient (REF) | payer OTHER, SELFPAY ==
[2024-12-18 13:24] VITALS: BP 120/71; BP_SYST 58
[2024-12-18 13:41] LABS: INR 2.57; PT 27.6 Sec (11.4-14.6)
== END ==
LOC: RADI 12:43
PROVIDERS: ATTENDING PHYSICIAN Thoracic Surgery (Cardiothoracic Vascular Surgery); OTHER PHYSICIAN Physician Assistant
DX: J90 Pleural effusion, not elsewhere classified (principal); D68.8 Other specified coagulation defects
CPT/HCPCS: 32555; 36415; 71045; 85610

== ENCOUNTER 2024-12-23 16:01 | Emergency (ER) | payer OTHER, SELFPAY ==
[2024-12-23 16:02] VITALS: BP 140/69
[2024-12-23 16:58] LABS: NT-proBNP 2080 pg/ml; Troponin I < 0.012 ng/ml
[2024-12-23 20:36] VITALS: BP 125/61
[2024-12-23 21:10] LABS: Troponin I 0.019 ng/ml
[2024-12-23 21:21] VITALS: BP 132/68
[2024-12-23 21:26] VITALS: BMI 27.8
[2024-12-23 22:00] VITALS: BP 125/64
--- NOTE | 2024-12-23 22:19 | ED.GENMED ---
History of Present Illness
General
Chief Complaint: Chest Pain
Source: patient and spouse
Time Seen by Provider: 12/23/24 21:20
History of Present Illness
History of Present Illness:
74-year-old male presents to the emergency room complaining of chest discomfort. Patient has a very extensive cardiac history including multiple stents, bypass surgery x 2 most recently in August. Patient's been working through some
postoperative complications including a right pleural effusion which is recurrent. Patient had occupational therapy at the home today. He mentioned that he was having chest discomfort. Generated a call to his cardiothoracic surgeon who
recommended the patient come to the emergency room for evaluation. Patient states has been experiencing this type of pain on and off for some time. He has been attributing it to his pleural effusion. Patient feels that his breathing is at his
baseline. No fever or chills.
Past History
Past History
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
ED Past Surgical History: Cardiac (CABG+Mechanical aortic valve replacement 2008) and Orthopedic
Social History
Tobacco: Non-smoker
Alcohol: None
Personal:
Living: with family
Employment: Employed
Family History
Family History: CAD
Phy Exam
Physical Exam
Physical Exam:
General: Awake, Alert, Oriented X3. No acute distress.
Vitals: unremarkable
Head: Atraumatic
Eyes: Pupils equal, EOMI
Throat: Airway intact, no exudates
Neck: Trachea midline
Lungs: Decreased breath sounds right base
Heart: Regular rate, no murmurs
Abd: Soft, Nontender, No pulsatile mass
Neuro: Nonfocal
Skin: Warm, dry, no rash
Extremities: pulses equal b/l, no edema
Scores
Heart Score for Chest Pain Patients
STEMI patient?: No
History: Slightly or Non-Suspicious
ECG: Nonspecific Repolarization
Age: >/= 65 years
Risk Factors: >/= 3 Risk Factors or History of CAD
Troponin: </= Normal Limit
Heart Score for Chest Pain Patients: 5
Heart Score Risk: 20.3% MACE over next 6 weeks
Course
Orders/Labs/Results
Orders:
Orders
12/23/24 16:01
Electrocardiogram (*1) Urgent
Reason for Study: Chest Pain
EKG- Treatment ONCE
12/23/24 16:21
NT-proBNP Urgent
Troponin I Urgent
12/23/24 20:37
Troponin I Urgent
12/23/24 21:42
CR Chest - 2 Views Urgent
Comment:
Reason For Exam: chest pain
Vital Signs
Initial and Last Documented VS:
Initial Vital Signs
Temp Pulse Resp BP Pulse Ox
98.6 F 56 16 140/69 97
12/23/24 16:02 12/23/24 16:02 12/23/24 16:02 12/23/24 16:02 12/23/24 16:02
Last Documented Vital Signs
Temp Pulse Resp BP Pulse Ox
98.6 F 52 22 125/64 96
12/23/24 16:02 12/23/24 22:30 12/23/24 22:30 12/23/24 22:00 12/23/24 22:30
MDM/Problems Addressed
Differential Diagnosis Includes:
Angina, chest wall pain, postoperative pain, GERD
MDM/Problems Addressed:
Patient presents with chest pain which seems fairly atypical for cardiac pain. Pains been going on for several hours. He had 2 troponins which are in the normal range. BNP is 2080 which I think is reasonable for his medical history and lower than
previous measurement. Chest x-ray shows moderate-sized right pleural effusion which appears similar in size to the most recent chest x-ray of December 18. Patient stable for discharge home and continued outpatient management
Chronic conditions affecting care: HTN and CAD
*Radiology
Radiology exam reviewed: preliminary read by ED provider (Persistent right pleural effusion/atelectasis)
*Pulse Oximetry
SaO2: 97
Oxygen Mode of Delivery: Room air
Patient hypoxic: no
*EKG
Interpreted by ED Provider?: Yes
Heart Rate: 54
Rate: bradycardiac
Rhythm: sinus
Reeves: normal axis
Interval: normal interval
QRS Pattern: normal QRS
Ischemia: non-specific ST changes
*Speech Clinician Interpretation
Rate: bradycardiac
Interpretation: abnormal
Heart Rate: 54
Rhythm: sinus
*Critical Care Note
Total Time (30-74mins, 75-104mins- exclusive of procedures): Not Applicable
ED Attending Note
-
Portions of this chart may have been created with voice recognition software.� Occasional wrong word or��sound alike� substitutions may have occurred due to the inherent limitations of voice recognition software.
Discharge Plan
Departure
Patient Disposition: Home (Routine Discharge)
Date of Disposition: 12/23/24
Time of Disposition: 22:26
Patient with high blood pressure during this ER visit?: No
Condition: Good
Discharge Problem:
Chest pain
Instructions: Chest Pain CBC Follow Up
Prescriptions:
No Action
cholecalciferol (vitamin D3) 1,000 UNITS tablet
1,000 units PO QPM
fluticasone propionate 50 mcg/actuation [place],Suspension
2 spray INTRANASAL BIDPRN PRN (Reason: allergies)
atorvastatin 40 mg Tablet
40 mg PO QPM
therapeutic multivitamin Tablet
1 tab PO DAILY
acetaminophen 500 mg Tablet
1,000 mg PO DAILYPRN PRN (Reason: mild pain)
insulin aspart U-100 100 unit/mL (3 mL) Insulin Pen
1 sliding scale dose SC DIRECTED
Saline Nasal 0.65 % Aerosol,[place]
1 spray INTRANASAL DAILYPRN PRN (Reason: dry sinuses)
coenzyme Q10 200 mg Capsule
200 mg PO QPM
insulin glargine [Lantus Solostar U-100 Insulin] 100 unit/mL (3 mL) Insulin Pen
20 unit SC QPM
trazodone 50 mg tablet
50 mg PO HS PRN (Reason: insomnia)
warfarin [Jantoven] 5 mg tablet
5 mg PO QPM
metoprolol succinate 25 mg tablet extended release 24 hr
25 mg PO DAILY
alprazolam 0.5 mg Tablet
0.5 mg PO Q6HPRN PRN (Reason: anxiety) Qty: 0 0RF
clotrimazole [Athlete's Foot (clotrimazole)] 1 % Cream
1 applic topical BID Qty: 0 0RF
Chloraseptic Sore Throat 6-10 mg Lozenge
1 whit PO Q4HPRN PRN (Reason: cough) Qty: 0 0RF
pantoprazole 40 mg Tablet,Delayed Release (Dr/Ec)
40 mg PO DAILY Qty: 0 0RF
oxycodone 5 mg Tablet
5 mg PO Q4HPRN PRN (Reason: severe pain) Qty: 12 0RF
cephalexin 500 mg capsule
500 mg PO QID 4 Days Qty: 16 0RF
docusate sodium 100 mg Capsule
100 mg PO BID 30 Days Qty: 60 0RF
Januvia 100 mg Tablet
100 mg PO DAILY 30 Days Qty: 30 0RF
amiodarone 200 mg Tablet
200 mg PO DAILY 30 Days Qty: 30 0RF
clopidogrel 75 mg Tablet
75 mg PO DAILY Qty: 30 0RF
tamsulosin 0.4 mg Capsule
0.4 mg PO DAILY 30 Days Qty: 30 0RF
ezetimibe [Zetia] 10 mg Tablet
10 mg PO QPM 30 Days Qty: 30 0RF
dapagliflozin propanediol 10 mg Tablet
10 mg PO DAILY 30 Days Qty: 30 0RF
bumetanide 2 mg Tablet
2 mg PO DAILY 30 Days Qty: 30 0RF
gabapentin 100 mg Capsule
100 mg PO TID 30 Days Qty: 90 0RF
Referrals:
Kyrie Asher MD [Family Provider, Family Practice]
Interventions
Interventions:
*Risk Screen - Suicide Last Done: 12/23/24 16:06
*General Assessment Last Done: 12/23/24 21:28
*Neglect/Abuse Screening Last Done: 12/23/24 16:06
*ED- Fall Risk Assessment Last Done: 12/23/24 21:28
*ED COVID-19 Vaccine History Last Done: 12/23/24 21:28
ED- Cardiac Assessment Last Done: 12/23/24 21:28
Discharge Date and Time
Print Language: [place]
== END 2024-12-23 23:30 | disposition home or self-care (01) ==
LOC: EMR 16:01
PROVIDERS: Emergency Medicine; EMERGENCY PHYSICIAN Emergency Medicine; FAMILY PHYSICIAN Family Medicine
DX: R07.89 Other chest pain (principal); J90 Pleural effusion, not elsewhere classified; I25.10 Atherosclerotic heart disease of native coronary artery without angina pectoris; I10 Essential (primary) hypertension; G47.33 Obstructive sleep apnea (adult) (pediatric); E78.00 Pure hypercholesterolemia, unspecified; E11.9 Type 2 diabetes mellitus without complications; R13.13 Dysphagia, pharyngeal phase; N40.0 Benign prostatic hyperplasia without lower urinary tract symptoms; Z95.5 Presence of coronary angioplasty implant and graft; Z95.2 Presence of prosthetic heart valve; Z95.1 Presence of aortocoronary bypass graft; Z88.1 Allergy status to other antibiotic agents; Z88.8 Allergy status to other drugs, medicaments and biological substances; Z79.01 Long term (current) use of anticoagulants
CPT/HCPCS: 99283; 36415; 71046; 80053; 80061; 83036; 83880; 84443; 84484; 85025; 93005; G0103

== ENCOUNTER → 2024-12-30 11:04 | Outpatient (REF) | payer OTHER, SELFPAY | LOC: WOUND 11:04 | PROVIDERS: ATTENDING PHYSICIAN Surgery; FAMILY PHYSICIAN Family Medicine | DX: L89.154 Pressure ulcer of sacral region, stage 4 (principal); S81.001A Unspecified open wound, right knee, initial encounter; Z79.01 Long term (current) use of anticoagulants; Z95.1 Presence of aortocoronary bypass graft; I73.9 Peripheral vascular disease, unspecified; E11.65 Type 2 diabetes mellitus with hyperglycemia; I10 Essential (primary) hypertension; Z95.2 Presence of prosthetic heart valve; X58.XXXA Exposure to other specified factors, initial encounter | CPT/HCPCS: 11042 ==

== ENCOUNTER → 2025-01-20 10:47 | Outpatient (REF) | payer OTHER, SELFPAY | LOC: WOUND 10:47 | PROVIDERS: ATTENDING PHYSICIAN Surgery | DX: L89.154 Pressure ulcer of sacral region, stage 4 (principal); S81.001A Unspecified open wound, right knee, initial encounter; Z79.01 Long term (current) use of anticoagulants; Z95.1 Presence of aortocoronary bypass graft; I73.9 Peripheral vascular disease, unspecified; E11.65 Type 2 diabetes mellitus with hyperglycemia; I10 Essential (primary) hypertension; Z95.2 Presence of prosthetic heart valve | CPT/HCPCS: 99213 ==

== ENCOUNTER 2025-02-02 08:18 | Inpatient (IN) | payer OTHER, SELFPAY ==
[2025-01-23 12:13] VITALS: BMI 29.6
[2025-01-23 13:03] LABS: Urine Character Clear (Clear)
[2025-01-23 13:04] LABS: Hematocrit 38.4 % (39.0-52.0); Hemoglobin 12.0 g/dL (13.0-18.0); Mean Corp Hgb Conc. 31.3 g/dL (33.0-37.0); Mean Corpuscular Volume 85.0 fL (80.0-94.0); Nucleated Red Blood Cells % 0 % (-); Platelet Count 228 10^3/uL (130-400); Red Cell Dist. Width 18.6 % (11.5-14.5)
[2025-01-23 13:14] LABS: INR 3.37; PT 33.9 Sec (11.4-14.6)
[2025-01-23 13:20] LABS: Glycohemoglobin (HgbA1c) 6.8 % (4.0-5.6)
[2025-01-23 13:24] LABS: Urine Squamous Cell 0-2 /LPF (Few)
[2025-01-23 13:25] LABS: Urine Red Blood Cell 0-2 /HPF (0-2); Urine White Cell 0-2 /HPF (0-5)
[2025-01-23 13:57] LABS: ALT (SGPT) 26 U/L (0-50); AST (SGOT) 27 U/L (17-59); Albumin 3.9 g/dl (3.5-5.0); Alkaline Phosphatase 135 U/L (38-126); Blood Urea Nitrogen 35 mg/dl (9-20); Calcium 8.8 mg/dl (8.4-10.2); Carbon Dioxide 28 mmol/L (22-30); Chloride 100 mmol/L (98-107); Estimated Creatinine Clearance 55 ml/min; Glucose 158 mg/dl (70-99); Potassium 4.1 mmol/L (3.5-5.1); Sodium 136 mmol/L (135-145); Total Protein 8.2 g/dl (6.3-8.2); eGFR > 60.00
--- NOTE | 2025-01-23 14:55 | CM ---
spoke to pt in PAT's, we discussed preop Lung pleurodesis instructions. he has the lung surgery book. he is arriving 02/02 and procedure is 02/04. he is pre vindep, lives with his in a 2 story home with 1 step to enter. he denies ay dc planning
needs or dme's. plan is for dc to home when medicably stable.
[2025-02-02] VITALS (11 sets, daily range): BP systolic 115–137; BP diastolic 61–75; PULSE 48–49; O2SAT 98–99; BMI 27.4
[2025-02-02 09:02] LABS: Glucose - Point of Care 171 mg/dl (70-99)
[2025-02-02 09:09] LABS: Hematocrit 40.1 % (39.0-52.0); Hemoglobin 12.6 g/dL (13.0-18.0); Mean Corp Hgb Conc. 31.4 g/dL (33.0-37.0); Mean Corpuscular Volume 85.0 fL (80.0-94.0); Platelet Count 233 10^3/uL (130-400); Red Cell Dist. Width 18.2 % (11.5-14.5)
--- NOTE | 2025-02-02 09:15 | PTCARENOTE ---
Pt Arrived Pre op from home. All admission questions answered and home meds reviewed. Pt's at bedside to assist. AAOx3, pt has recurring pulmonary effusions, pt walked to bathroom with no assistance other than cane, IV placed and labs drawn,
Heparin started, pt main complaint was some SOB, pulse ox 98%. Right posterior lung diminished throughout. Denies pain. SB with 1st degree AVB on tele with rates in the 40s-50s. BP stable 132/67. Bilateral radial and DP pulses palpable. No edema.
Abdomen soft, nontender. +BS. Denies issues urinating. 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 Sacral pressure injury on admission, Stg 2 foam dressing applied, wound consult in. Left forearm
20g PIV intact infusing heparin gtt at 1000units/hour. See MAR for medication administration. See worklist for complete nursing assessment. Plan of care reviewed and patient in agreement.
[2025-02-02] MEDS: HEPARIN 25000 UNITS/250 ML IV (09:16)
[2025-02-02 09:22] LABS: APTT 33.7 Sec (23.4-35.0); INR 2.29; PT 25.3 Sec (11.4-14.6)
--- NOTE | 2025-02-02 11:31 | CM ---
Reviewed chart. Met with and Mrs. Benavidez to review discharge plans. He states prior to admission he resides with his spouse in a two story home with two steps to enter. He states he has a full flight of steps to get to bedroom/full bathroom.
He states he has a powder room on the fist floor. He states prior to admission he was independent with ambulation in the home and uses a single point cane in the community. He has a single point cane at home. He states he has been in [facility].
after his heart surgery. He states he also went to outpatient therapy. He states he is current with [facility] for wound care. He states he has a prescription plan. Medical work-up in progress. The discharge plan is to return home with his
spouse and resumption of [facility] when medically stable.
[2025-02-02 11:51] LABS: Glucose - Point of Care 251 mg/dl (70-99)
[2025-02-02] MEDS: NOVOLOG FLEXPEN-MODERATE RESISTANCE 5 UNITS SC (12:08)
--- NOTE | 2025-02-02 12:19 | PTCARENOTE ---
Pt sitting comfortable in chair with at bedside, got BS it was 251 so was given 5 units of insulin, Vitals were obtained HR 45-50's SB 1st degree HB, Heparin continues to infuse, No acute changes
--- NOTE | 2025-02-02 15:44 | PTCARENOTE ---
Pt AAOx3 in the chair was able to get up and use the restroom, He was able to have a BM and urinate, PTT was drawn, heparin still running with no issues, no acute events at this time
[2025-02-02 15:55] LABS: APTT 48.8 Sec (23.4-35.0)
--- NOTE | 2025-02-02 16:22 | WOUNDNOTE ---
RIGHT LEG WOUND
--- NOTE | 2025-02-02 16:28 | WOUNDNOTE ---
WOC RN note: Patient admitted from home for chest tube placement on 02/04
See H&P for complete history.
PMH- PAD, type 2 diabetes, HTN
Wound Location and type/assessment: Patient admitted with healed right leg wound, previously site of wound vac. Healed site is epithelized and intact. Patient also admitted with healing stage 4 PI. Patient goes to [facility] for these wounds.
Appetite: Good. Drinks supplemental protein shakes daily.
Pressure redistribution devices in place: Centrella Max Air, stands and turns self. Air cushion applied to chair prior to assessment.
Plan: Will recommend Aquaphor for right leg wound. Patient has collagen dressing from home, which was applied to sacral wound. RN Laureen given update.Will confirm orders with hospitalist and update nurse.
Note to case management of equipment requested for discharge:
Recommend follow up at wound care center upon discharge.
[2025-02-02 16:52] LABS: Glucose - Point of Care 156 mg/dl (70-99)
[2025-02-02] MEDS: NOVOLOG FLEXPEN-MODERATE RESISTANCE 1 UNITS SC (16:53)
[2025-02-02] MEDS: ZETIA 10 MG PO (17:15)
[2025-02-02] MEDS: LIPITOR 40 MG PO (17:15)
[2025-02-02] MEDS: VITAMIN D3 (cholecalciferol) 25 MCG PO (17:15)
[2025-02-02] MEDS: HYDROPHOR 1 APPLIC TOPICAL (17:39)
[2025-02-02] MEDS: LANTUS 0.19 UNITS SC (18:08)
[2025-02-02] MEDS: COLACE 100 MG PO (20:39)
--- NOTE | 2025-02-02 21:00 | PTCARENOTE ---
Assumed care of pt from dayshift RN. Walking rounds completed. Pt is AAOx3. Sinus maribel w/ 1st degree AVB on the tele monitor. HR 50s. BP stable. Palpable pulses throughout. No edema. Pt on RA. POX 97-98%. Lung sounds audible throughout. Abdomen
soft/nontender. +BSx4. Pt voiding w/o issue. Right leg healed SVG site from previous surgery intact. Sacral pressure ulcer covered w/ foam bandage intact. Heparin infusing as ordered. Pt repositioned in bed. See worklist for full nursing assessment
and interventions. Call xiao within reach.
[2025-02-02] MEDS: DESYREL 50 MG PO (21:57)
--- NOTE | 2025-02-02 23:30 | PTCARENOTE ---
No acute change in assessment. VSS. Pt is sinus maribel w/ 1st degree AVB on the tele monitor. Heparin infusion maintained. PTT drawn and sent. No c/o pain at this time. Call xiao within reach.
[2025-02-02 23:34] LABS: APTT 65.1 Sec (23.4-35.0)
[2025-02-02 23:37] LABS: Glucose - Point of Care 115 mg/dl (70-99)
[2025-02-03] VITALS (7 sets, daily range): BP systolic 116–135; BP diastolic 61–76; BMI 27.2
[2025-02-03] MEDS: HEPARIN 25000 UNITS/250 ML IV ×2 (04:50→23:13)
--- NOTE | 2025-02-03 05:00 | PTCARENOTE ---
No change in assessment. Pt sinus maribel w/ 1st degree AVB on the monitor. VSS. No c/o pain. Heparin infusing. Labs drawn and sent. Pt OOB to void w/ stand-by assist and then repositioned back into bed. Call xiao within reach.
[2025-02-03 05:07] LABS: INR 2.20; PT 24.5 Sec (11.4-14.6)
[2025-02-03 05:08] LABS: APTT 60.6 Sec (23.4-35.0)
[2025-02-03 05:26] LABS: Blood Urea Nitrogen 34 mg/dl (9-20); Calcium 8.9 mg/dl (8.4-10.2); Carbon Dioxide 28 mmol/L (22-30); Chloride 105 mmol/L (98-107); Estimated Creatinine Clearance 70 ml/min; Glucose 98 mg/dl (70-99); Magnesium 2.0 mg/dl (1.6-2.3); Potassium 3.5 mmol/L (3.5-5.1); Sodium 136 mmol/L (135-145); eGFR > 60.00
--- NOTE | 2025-02-03 08:00 | PTCARENOTE ---
pt received from previous RN, oriented, OOB in chair. SB w/ prolonged QT on the monitor, HR 40-50s, ENGRAVER SEALS aware. SBP 120s. palpable pulses. pt on RA, 97% POX. lungs diminished on R side. IS encouraged. pt abdomen s/n, denies n/v. voids. pt states had
BM yesterday. ordered hydrophor applied to RLE. sacral dressing in place. PIV. heparin gtt running ordered. see worklist for VS, I&O, and assessment.
[2025-02-03 08:14] LABS: Glucose - Point of Care 117 mg/dl (70-99)
[2025-02-03] MEDS: NOVOLOG FLEXPEN-MODERATE RESISTANCE SC (08:42)
[2025-02-03] MEDS: BUMEX 2 MG PO (08:48)
[2025-02-03] MEDS: JANUVIA 100 MG PO (08:48)
[2025-02-03] MEDS: FLOMAX 0.4 MG PO (08:48)
[2025-02-03] MEDS: COLACE 100 MG PO ×2 (08:48→19:42)
[2025-02-03] MEDS: THERAGRAN 1 TABLET PO (08:48)
[2025-02-03] MEDS: TOPROL XL 25 MG PO (08:49)
[2025-02-03] MEDS: PACERONE 200 MG PO (08:49)
[2025-02-03] MEDS: HYDROPHOR 1 APPLIC TOPICAL (08:51)
--- NOTE | 2025-02-03 10:16 | VNURNOTE ---
Chart reviewed. Patient is current with [facility]. Will continue to follow hospital course and DC plans.
--- NOTE | 2025-02-03 11:03 | CM ---
Reviewed chart. Met with and Mrs. Benavidez to review discharge plans. He states he is feeling well and going for surgery in the a.m. Prior to admission he resides with his spouse in a two story home with two steps too enter. He has a full flight
of steps to get to bedroom/full bathroom. He has a powder room on the first floor. Prior to admission he was independent with ambulation in the home and uses a single point cane in the community. He has a single point cane at home. He has been in
[facility] in the [facility]. He has also gone to outpatient therapy in the past. He is current with [facility] for wound care. He would like to continue with [facility]. He has a prescription plan. Medical work-up in progress. The
discharge plan is to return home with his spouse and resumption of [facility] when medically stable.
[2025-02-03] MEDS: NOVOLOG FLEXPEN-MODERATE RESISTANCE 1 UNITS SC ×2 (11:42→16:54)
[2025-02-03 11:43] LABS: Glucose - Point of Care 184 mg/dl (70-99)
--- NOTE | 2025-02-03 12:00 | PTCARENOTE ---
pt VSS, no changes in assessment. lab work drawn. pt ambulates to bathroom, voids, +BM. OOB in chair. heparin gtt running as ordered.
[2025-02-03 12:11] LABS: INR 1.91; PT 22.0 Sec (11.4-14.6)
[2025-02-03 12:12] LABS: APTT 95.7 Sec (23.4-35.0)
[2025-02-03] MEDS: KCL 40 MEQ PO (14:38)
--- NOTE | 2025-02-03 16:00 | PTCARENOTE ---
pt VSS, no changes in assessment. pt ambulating in room independently. sacral wound dressing changed. at bedside.
[2025-02-03 16:54] LABS: Glucose - Point of Care 155 mg/dl (70-99)
[2025-02-03] MEDS: LIPITOR 40 MG PO (18:07)
[2025-02-03] MEDS: ZETIA 10 MG PO (18:07)
[2025-02-03] MEDS: VITAMIN D3 (cholecalciferol) 25 MCG PO (18:07)
[2025-02-03 18:36] LABS: APTT 110.7 Sec (23.4-35.0)
[2025-02-03] MEDS: DESYREL 50 MG PO (21:04)
[2025-02-03] MEDS: LANTUS 0.1 UNITS SC (21:04)
[2025-02-03 21:07] LABS: Glucose - Point of Care 146 mg/dl (70-99)
--- NOTE | 2025-02-03 21:29 | PTCARENOTE ---
Assumed care of patient at 1900. Patient alert and oriented, on Heparin ggt, +Pulses, Lungs clear, PIV patent, pre op CHG shower done and linens and gown changed.Surgerical site marked by Dr Alejandre. see workflow for details.
[2025-02-04] VITALS (19 sets, daily range): BP systolic 96–136; BP diastolic 49–74; BMI 27.1
--- NOTE | 2025-02-04 00:26 | PTCARENOTE ---
patient resting, vital signs stable , Heparin ggt maintained, NPO
[2025-02-04 04:41] LABS: Hematocrit 33.2 % (39.0-52.0); Hemoglobin 10.4 g/dL (13.0-18.0); Mean Corp Hgb Conc. 31.3 g/dL (33.0-37.0); Mean Corpuscular Volume 84.3 fL (80.0-94.0); Platelet Count 205 10^3/uL (130-400); Red Cell Dist. Width 17.9 % (11.5-14.5)
[2025-02-04 04:50] LABS: INR 1.81; PT 21.1 Sec (11.4-14.6)
[2025-02-04 04:52] LABS: APTT 73.2 Sec (23.4-35.0)
[2025-02-04 05:46] LABS: Blood Urea Nitrogen 35 mg/dl (9-20); Calcium 9.0 mg/dl (8.4-10.2); Carbon Dioxide 26 mmol/L (22-30); Chloride 107 mmol/L (98-107); Estimated Creatinine Clearance 70 ml/min; Glucose 111 mg/dl (70-99); Magnesium 2.0 mg/dl (1.6-2.3); Potassium 3.7 mmol/L (3.5-5.1); Sodium 137 mmol/L (135-145); eGFR > 60.00
--- NOTE | 2025-02-04 05:54 | PTCARENOTE ---
patient prep for surgery this morning. Labs sent, second IV 18 Fr Right forearm added, Patient clipped per protocol and second CHG wash shower completed, then wiped with CHG cloths, linens all changed and all leads changed for new. Right side upper
hest marked by Dr. holden, Heparin ggt stopped at 600am. Vital signs stable. Sinus Daniel on monitor, Lungs remain clear.
--- NOTE | 2025-02-04 08:00 | PTCARENOTE ---
pt received from previous RN, oriented, in bed. SB on the monitor, HR 40-50s, PUMP ATTENDANT aware. SBP 130s. palpable pulses. pt on RA, 98% POX. lungs diminished on R side. IS encouraged. pt abdomen s/n, denies n/v. voids. +BM. sacral dressing in place. PIVx2.
pt states had two CHG showers overnight and wipes w/ CHG wipes. NPO since midnight. see worklist for VS, I&O, and assessment.
[2025-02-04] MEDS: NOVOLOG FLEXPEN-MODERATE RESISTANCE SC ×2 (08:10→13:26)
[2025-02-04] MEDS: FLOMAX 0.4 MG PO (09:14)
[2025-02-04] MEDS: KCL 20 MEQ PO (09:14)
[2025-02-04 10:14] LABS: Glucose - Point of Care 140 mg/dl (70-99)
--- NOTE | 2025-02-04 10:55 | PTCARENOTE ---
FFP transfused as ordered, K repleted per PHARMACEUTICAL BOTANIST. pt voided. pt sent to CVOR via bed on X3 monitor. report given to CVOR RN
--- NOTE | 2025-02-04 11:35 | W.CVOR.SURPR ---
[facility] Surgeon Immed Pre Op
-
I have examined this patient prior to performance of the scheduled procedure.
The patient's condition is unchanged from the time of the dictated/written History and
Physical and the patient is able to undergo the scheduled procedure.
Right decort via robotic vs thoracotomy
--- NOTE | 2025-02-04 11:40 | CM ---
Reviewed chart. Mr. Benavidez is in the operating room today. Prior to admission he reside with his spouse in a two story home with two steps to enter. He has a full flight of steps to get to bedroom/full bathroom. He has a powder room on the first
floor. Prior to admission he ambulates in the home independently and uses a single point cane in the community. He has a single point cane at home. He has been in [facility]. in the past. He also has gone to outpatient therapy in the past. He is
current with [facility] He has a prescription plan. Medical work-up in progress. The discharge plan is to return home with his spouse and resumption of [facility] .
[2025-02-04 12:15] LABS: Urine Character Clear (Clear)
[2025-02-04 12:38] LABS: Urine Squamous Cell 0-2 /LPF (Few); Urine Urothelial Cell 0-2 /LPF (FEW)
[2025-02-04 12:39] LABS: Urine Red Blood Cell 0-2 /HPF (0-2)
[2025-02-04] MEDS: THERAGRAN PO (13:26)
--- NOTE | 2025-02-04 13:59 | W.PN.CT.SURG ---
CT Surgery Operative Note
-
THORACIC SURGERY OPERATIVE REPORT
Preoperative Diagnosis: Entrapped right lower lobe with recurrent effusions and respiratory failure
Postoperative Diagnosis: Same
Procedure(s) Performed:
1. Robotic assisted thoracic surgery [RATS]
2. Extensive the loculation and adhesiolysis, modifier 22
3. Decortication of the right lower and right middle lobes
4. Decortication of the chest wall as there was a thick pleural rind
5. Decortication of the diaphragmatic surface
6. Application of hemostatic agent and placement of 2 tube thoracostomies
Date of Surgery: 02/04/25
Comorbidities:
1. History of open heart surgery x 2
2. Protracted hospital stay in ICU length of stay
3. Sacral decub
4. Hypertension
5. Hyperlipidemia
6. CAD with emergent bypass
7. Recurrent right-sided pleural effusions
8. Entrapped right lung with respiratory insufficiency
9. Diabetes type 2
Attending Surgeon: Jose Alejandre MD, MS
Assistants: Claire Leos PA-C (present and necessary to first sampler, exchanging robotic instruments, retraction, suction, exposure, suture management, and wound closure under my direction)
Anesthesiology: Jose Eduardo Jacobs MD and Yoli Billingsley CRNA
Scrub and Circulating RNs: Kadeem Lauren RN, Yoli Hartley RN
Anesthesia: Dual Lumen GETA
EBL: 200 cc
Products: None
Indication(s) for Procedures: This is a 74-year-old male with multiple comorbidities including relatively recent emergent redo sternotomy and redo coronary artery bypass grafting status post DE LOS SANTOS graft dissection. He had a protracted ICU length of
stay secondary to an RV injury and multiple blood product transfusions. He has since recovered from that however he has had recurrent right-sided pleural effusions resulting in multiple thoracocentesis. More recently had a right-sided pleural
drain and a CT scan the following day which demonstrated reaccumulation almost immediately. There was a thick rind overlying the right lower and right middle lobes as well as chest wall likely accounting for his failed obliteration of the
space. He was referred to me for consideration of a decortication. Given his multiple comorbidities including his chronic Coumadin use for his mechanical aortic valve, he was preadmitted for heparin bridging and medical optimization.
Findings: Dense pleural rind on both the chest wall and encasing the right lower and right middle lobes. The diaphragm was also involved. This required extensive adhesiolysis as well as decortication, modifier 22 for an additional 1 hour OR time
spent peeling off the dense rind. There also loculated effusions that had the consistency of jelly in various locations. I was able to free off the lung from the chest wall in order to place a total of three 8 mm ports and a single 12 mm air seal
port. I then worked my way cephalad and freed up the lower and middle lobes from the anterior and posterior chest wall and then worked my way cephalad towards the right upper lobe. The right upper lobe itself was adherent to the chest wall and did
not seem to be encased in a rind. Using a progress device, I used spatula cautery to score the surface of the right lower lobe and then peeled the rind upwards while using electrocautery to separate the rind from the lung parenchyma. Several areas
of lung injury occurred and work controlled with electrocautery and hemostatic agents. I also peeled off a significant amount of dense rind on the chest wall and diaphragmatic surfaces. A total of 2 chest tubes were placed, 1 x 24 Juan drain into
the gutter and then 1 x 28 straight chest tube up towards the apex. There was a +1 continuous air leak at the conclusion of the case however not a significant loss in tidal volumes. I elected to leave him intubated in order to utilize the PEEP to
help reexpand his right lower and middle lobes and also to help tamponade any oozing. Given that he was on preoperative Coumadin and was recently on heparin as a bridge, I expected some level of bleeding.
Description of Procedure: The patient was taken to the operating room. Induction via general anesthesia with endotracheal intubation was performed and peripheral venous access and arterial monitoring were inserted. Their identity and procedure to be
performed were verified and they were positioned with the right side up on the operating table. The patient was then prepped and draped in a sterile fashion. A preoperative time-out was performed with all members of the team present. A Veress
needle was used to insufflate the chest after isolating the lung. An 8 mm port was placed in the midaxillary line at approximately the eighth intercostal space and confirmed to be intrathoracic without significant pulmonary injury. I then used the
camera in order to deloculated some of the adhesions to the chest wall in order to facilitate a space to place an anterior posterior 8 mm trocar. I then used the suction director of student financial aid and told her to suck out any effusion and also to separate
additional loculated adhesions towards the diaphragmatic surface in order to place a 12 mm air seal port. I then performed the loculation and decortication as described above.
Hood was used to coat the lung surface as a hemostatic agent. After confirming hemostasis, the lung was fully inflated and all ports were removed. Chest tubes were placed under direct camera vision as described above. Incisions were closed in 3
layers including the fascia, dermal, and epidermis. Additional local anesthesia was injected into all incision sites. The skin wound was cleansed and sealed with Dermabond glue.
All instrument, sponge, and needle counts were confirmed to be correct x 2 at the end of the operation. The patient was transferred to the cardiac intensive care unit intubated in critical but stable condition.
I, Dr. Jose Alejandre, was present, scrubbed for, and performed all critical elements of this procedure.
Jose Alejandre MD, MS
Cardiothoracic Surgeon
[facility]
This operative dictation was created using the [employer] dictation system. Please excuse any grammatical, typographical, or 'sound alike' errors
[2025-02-04 14:19] LABS: Glucose - Point of Care 180 mg/dl (70-99)
[2025-02-04 14:24] LABS: B.E. -1.4 mmol/L; HCO3 24.3 mmol/L (21-28); Hematocrit 34.1 % (39.0-52.0); Hemoglobin 10.6 g/dL (13.0-18.0); O2 Saturation % 99.4 % (94-98); PCO2 44 mmHg (35-48); PO2 138 mmHg (83-108); Platelet Count 187 10^3/uL (130-400); Potassium 4.2 mMOL/L (3.5-5.1); Sodium 135 mMOL/L (136-145)
--- NOTE | 2025-02-04 14:29 | W.PN.UPDATE ---
Update Note
Progress Note Update
This is a delayed note for 02/03.
Patient admitted for heparin bridge, he remains stable, VSS, on heparin gtt. Will be npo after midnight. For OR sunday second case.
[2025-02-04 14:39] LABS: INR 1.57; PT 19.2 Sec (11.4-14.6)
[2025-02-04 14:40] LABS: APTT 30.9 Sec (23.4-35.0)
[2025-02-04] MEDS: JANUVIA PO (14:54)
[2025-02-04] MEDS: BUMEX PO (14:54)
[2025-02-04] MEDS: COLACE PO ×2 (14:54→20:51)
[2025-02-04] MEDS: ANCEF 10 IV ×2 (14:54)
[2025-02-04] MEDS: TOPROL XL PO (14:55)
[2025-02-04] MEDS: PACERONE PO (14:55)
[2025-02-04] MEDS: HYDROPHOR 1 APPLIC TOPICAL (14:55)
[2025-02-04 14:59] LABS: B.E. - POC -1.6 mmol/L; Glucose - POC 143 mg/dl (70-99); HCO3 - POC 24 mmol/L (21-28); Hematocrit - POC 31 % PCV (42-52); Hemodilution- POC No; Hemoglobin Calculated - POC 10.5; Ionized Calcium - POC 1.15 mmol/L (1.15-1.33); Lactate - POC 0.77 mmol/L (0.36-0.75); O2 Saturation %Calculated-POC 96.9 % (94-98); PCO2 - POC 40 mmHg (35-48); PO2 - POC 91 mmHg (83-108); Potassium - POC 3.9 mmol/L (3.5-5.1); Sodium - POC 140 mmol/L (136-145); Specimen Type - POC Arterial; pH - POC 7.38 (7.35-7.45)
[2025-02-04 15:15] LABS: Blood Urea Nitrogen 29 mg/dl (9-20); Estimated Creatinine Clearance 64 ml/min
--- NOTE | 2025-02-04 15:15 | PTCARENOTE ---
pt received from [facility] @~1415, sedated on Precedex gtt, RASS -5. core temp 95.2F, bear hugger applied as ordered. SB on the monitor, HR 40s. SBP 100-120s, Levophed gtt titrated as ordered. palpable pulses. pt mechanically ventilated, ETT #8.0,
24cm@lip. SIMV 14, TV 500, PEEP 8, FIO2 40%. POX, 94-96%. ETT rod in place w/ hiLo suction. CTx2, +1 air leak in R pleural A, Dr. Alejandre aware. pt abdomen soft, hypoactive BS. NPO. giron in place, MAINTENANCE PAINTER APPRENTICE aware of UO. surgical sites intact. chest tube
sites c/d/i. PIV x3. L radial Sabine flushed, zeroed, and calibrated. lab work drawn, EKG performed, CXR completed. see worklist for VS, I&O, and assessment.
[2025-02-04] MEDS: NEURONTIN PO ×2 (15:25→20:52)
[2025-02-04] MEDS: NOVOLOG FLEXPEN-MODERATE RESISTANCE 1 UNITS SC ×3 (15:27→23:48)
[2025-02-04 15:28] LABS: Glucose - Point of Care 180 mg/dl (70-99)
[2025-02-04] MEDS: CALCIUM GLUCONATE 100 IV (15:34)
[2025-02-04] MEDS: DIPRIVAN 100 IV (16:00)
[2025-02-04] MEDS: SUBLIMAZE 50 MCG IV ×2 (16:09→17:48)
[2025-02-04] MEDS: SUBLIMAZE 100 IV (16:10)
--- NOTE | 2025-02-04 16:14 | CON.INTV ---
Consultation
Consultation Request
Date/Time Consultation Requested: 02/04/2025
Date/Time Consultation Performed: 02/04/2025
Requesting Provider: Dr. Alejandre
Performing Provider: Dr. Sven Antoine
Reason for Consultation: Status post robotic assisted thoracotomy, decortication
Medical History
-
Chief Complaint: DE LOS SANTOS dissection
History of Present Illness:
74-year-old male with a history of CAD underwent elective cardiac catheterization for exertional chest pain and abnormal stress test with successful PCI of 80% in-stent restenosis and successful PCI of 90% proximal stent edge restenosis complicated
by DE LOS SANTOS dissection underwent emergent pump assisted beating heart bypass with repair of RV injury - 08/14/2024.
Complicated by saphenous vein harvest site infection.
Right recurrent pleural effusions.
Multiple thoracentesis, CT scan of the chest 12/18/2024 showed pleural thickening, right lower lung atelectasis.
Rapid reaccumulation after thoracentesis. Given symptomatic pleural effusion and inability to clear after thoracentesis. Thoracotomy with decortication was scheduled.
-
Underwent robotic assisted thoracic surgery, decortication of the right lower lobe and right middle lobe. Decortication of the chest wall and diaphragm surface.
Now in the critical care unit, critical care team consulted for postoperative management.
Past Medical History
Past Medical History: Other (See assessment and plan)
Social History
Tobacco: Non-smoker
Alcohol: None
Drug: None
Personal:
Living: With Family
Occupational Exposures: No known asbestos exposure
Environmental Exposures: No known tuberculosis exposure
Family History
Family History: Early CAD (Mother- 58 years old, father 59 years old)
Allergies / Home Medications
Allergies
Allergy/AdvReac Type Severity Reaction Status Date / Time
levofloxacin (From Levaquin) AdvReac Mild muscle pain Verified 02/02/25 09:39
simvastatin (From Zocor) AdvReac Mild MYALGIAS/leg Verified 02/02/25 09:39
cramping
rosuvastatin calcium (From AdvReac Unknown Unknown Verified 02/02/25 09:39
Crestor)
Home Medications
�Medication �Instructions �Recorded �Confirmed �Last Taken �Type
cholecalciferol (vitamin D3) 25 1,000 units PO QPM Supplement 08/26/18 02/02/25 01/23/25 History
mcg (1,000 unit) tablet
fluticasone propionate 50 2 spray intranasal BIDPRN PRN 04/18/24 02/02/25 12/30/24 History
mcg/actuation nasal allergies
spray,suspension
amiodarone 200 mg tablet 200 mg PO DAILY Arrhythmia 30 days 09/15/24 02/02/25 02/02/25 07:00 Rx
#30 tabs
bumetanide 2 mg tablet 2 mg PO DAILY Fluid 09/15/24 02/02/25 02/02/25 07:00 Rx
retention/Swelling 30 days #30 tabs
clopidogrel 75 mg tablet 75 mg PO DAILY Blood clot 09/15/24 02/02/25 01/29/25 Rx
prevention/tx/Afib #30 tabs
dapagliflozin propanediol 10 mg 10 mg PO DAILY Heart 09/15/24 02/02/25 01/31/25 Rx
tablet disease/condition 30 days #30 tabs
docusate sodium 100 mg capsule 100 mg PO BID Constipation 30 days 09/15/24 02/02/25 02/02/25 07:00 Rx
#60 caps
ezetimibe 10 mg tablet (Zetia) 10 mg PO QPM High cholesterol 30 09/15/24 02/02/25 02/01/25 18:00 Rx
days #30 tabs
gabapentin 100 mg capsule 100 mg PO TID Pain 30 days #90 caps 09/15/24 02/02/25 02/02/25 07:00 Rx
sitagliptin phosphate 100 mg 100 mg PO DAILY Diabetes 30 days 09/15/24 02/02/25 02/02/25 07:00 Rx
tablet (Januvia) #30 tabs
tamsulosin 0.4 mg capsule 0.4 mg PO DAILY Bladder/BPH 30 09/15/24 02/02/25 02/02/25 07:00 Rx
days #30 caps
acetaminophen 500 mg tablet 1,000 mg PO DAILYPRN PRN mild pain 11/16/24 02/02/25 01/26/25 History
coenzyme Q10 200 mg capsule 200 mg PO QPM Supplement 11/16/24 02/02/25 01/27/25 History
insulin aspart U-100 100 unit/mL 1 sliding scale dose SC 11/16/24 02/02/25 01/26/25 History
(3 mL) subcutaneous pen DIRECTED Diabetes
insulin glargine 100 unit/mL (3 19 unit SC QPM Diabetes 11/16/24 02/02/25 02/01/25 21:00 History
mL) subcutaneous pen (Lantus
Solostar U-100 Insulin)
metoprolol succinate 25 mg 25 mg PO DAILY blood pressure 11/16/24 02/02/25 02/02/25 07:00 History
tablet,extended release 24 hr
trazodone 50 mg tablet 50 - 100 mg PO HS insomnia 11/16/24 02/02/25 02/01/25 21:00 History
warfarin 5 mg tablet (Jantoven) 0 mg PO QPM Blood Clot 11/16/24 02/02/25 01/31/25 History
Prevention/Tx
atorvastatin 80 mg tablet 40 mg PO QPM High Cholesterol 01/21/25 02/02/25 02/01/25 18:00 History
jgjowoncvchy-cfgmhmgw-eytmhp tablet 1 tab PO DAILY Supplement 01/21/25 02/02/25 01/27/25 History
nitroglycerin 0.4 mg sublingual 0.4 mg sublingual Q5-15M PRN chest 01/21/25 02/02/25 Unknown History
tablet pain
Review of Systems
-
History Source: Patient
All other systems: Negative unless noted
Vitals / Labs / Diagnostic Testing
Vital Signs
Temp Pulse Resp BP Pulse Ox
95.5 F L 44 14 125/56 94
02/04/25 16:00 02/04/25 16:00 02/04/25 16:00 02/04/25 15:14 02/04/25 16:00
Lab Data
02/04/25 14:16
02/04/25 14:16
Laboratory Results
02/03/25 02/04/25 02/04/25
18:17 04:08 14:16
PT 21.1 H 19.2 H
INR 1.81 1.57
APTT 110.7 H 73.2 H 30.9
pH 7.35
pCO2 44
pO2 138 H
HCO3 24.3
O2 Delivery Level
Diagnostic Testing:
Physical Exam
-
HEENT: Normocephalic
Cardiovascular: S1/S2
Respiratory: Wheeze (n) and Other (Chest tube in place with minimal air leak/No excessive drainage.)
GI: Soft
Neurology: Other (Sedated, mechanical ventilation. Occasionally opening eyes.)
Skin: Warm
Assessment
-
74-year-old male with a history of CAD underwent elective cardiac catheterization for exertional chest pain and abnormal stress test with successful PCI of 80% in-stent restenosis and successful PCI of 90% proximal stent edge restenosis complicated
by DE LOS SANTOS dissection underwent emergent pump assisted beating heart bypass with repair of RV injury as well-pin drafting machine tender consulted for postoperative ventilator/critical care management 08/14/2024.
Patient initially admitted a day before for heparin bridge.
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
Status post robotic assisted thoracic surgery/loculations and adhesion release of lysis, decortication of the right lower lobe, right middle lobe, chest wall, diaphragmatic surface 02/04/2025.
Conditions present prior to admission:
Protracted hospital stays and postoperative course. Saphenous graft site infection, recurrent right pleural effusion.
Cardiac catheterization status post stents and DE LOS SANTOS dissection
Status post reentry sternotomy, repair of innominate vein injury, repair of RV injury, pump assist beating heart bypass GSV to LAD, repair of SVC/innominate vein-Dr. Delatorre 08/13/2024
CAD/CABG 2008/stent-LAD 2023.
CHF EF 45%.
Hypertension.
Hyperlipidemia.
Type II diabetes.
PAT-resolved with 80 pound weight loss
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
Spinal stenosis.
Tremors
Left knee arthroscopy.
Cataract.
Plan:
His doing well postop-currently on mechanical ventilation and appears comfortable.
ABG reviewed: /138-adequate oxygenation and ventilation.
Continue SIMV mode with no change
Will keep intubated until tomorrow
Hopefully spontaneous breathing trial earlier tomorrow
He appears comfortable
Continue with sedation RASS score 0/-1
Anemia noted-no evidence of acute bleeding
Follow H&H serially
Hemodynamics -acceptable off vasopressors
Arterial line in place
Chest tube with no excessive drainage-with minimal air leak with respiratory variation.
Chest x-ray reviewed: With no pneumothorax or fluid collections. Postoperative changes noted. Right chest tube in place.
Remain nothing by mouth
Head of the bed elevation
Glycemic control per protocol
DVT prophylaxis when safe from the surgical perspective. Restart anticoagulation when safe from the surgical perspective.
Critical care statement: A total of 32 minutes of critical care time was provided for this patient today. This includes management of unstable vital signs, evaluation of the patient at bedside, reviewing the patient's pertinent medical records
including ventilator settings, arterial blood gases, radiographs, microbiology, laboratory evaluations and discussion with primary team, critical care nursing, and respiratory therapy.
Diagnostic Data:
Chest x-ray 02/04/2025: Right postoperative changes. Chest tube in place.
Chest x-ray 08/26/18-NAD�������
Chest x-ray 08/13/2024-endotracheal tube tip 4.4 cm above indira, mild atelectasis left base
Chest x-ray 08/14/2024-no pneumothorax, basilar opacifications
CT neck 05/03/21--severe degenerative/arthritic changes noted on the left side where the collar bone and chest bone or sternum meet -Sternoclavicular-which could explain the lump that he feels,, some carotid artery closure was noted and warrants
carotid ultrasounds, incidentally, his epiglottis also had a lot of calcifications which sometimes can be seen with people that have swallowing difficulties-Patient notified-we'll discuss carotid ultrasounds at next visit.�������
CT head angiogram 07/31/2023-no CT evidence for intracranial aneurysm
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
Brain MRA 06/28/21-no hemodynamically significant stenosis, branch occlusion or aneurysm�������
Neck MRA 06/28/21-no significant carotid plaque formation or hemodynamically significant stenosis
Echocardiogram 12/25/19-EF 65-70%�������
Echocardiogram 04/18/2024-EF 45-50%
Nuclear stress test 05/17/21-Systolic function moderately reduced, EF 41%, moderate risk study.
Cardiac catheterization 08/13/2024-successful PCI mid LAD distal stent edge haziness and 80% ISR lesion with reduction in stenosis, successful PCI 90% DE LOS SANTOS/LAD with reduction of stenosis to 0% with subsequent complication by dissection of DE LOS SANTOS graft
after post dilation
PSG around 2006 AHI-36, desaturation stefano 85%, CPAP 7-cm�������
HST-after 80 pound weight loss-05/23/21-ROSE-1.4, desaturation stefano 89%.
-----
Critical care statement: A total of 31 minutes of critical care time was provided for this patient today. This includes management of ventilator, spontaneous breathing trial, arterial blood gases, pressors, of unstable vital signs, evaluation of the
patient at bedside, spontaneous breathing trial management, reviewing the patient's pertinent medical records including radiographs, microbiology, laboratory evaluations, and discussion with primary team and critical care nursing.
--- NOTE | 2025-02-04 16:25 | PTCARENOTE ---
calcium repleted as ordered. Precedex gtt titrated off, pt able to nod appropriately, MAYES, follows commands. pt nodded head yes to pain, CPOT 3, PRN fentanyl given as ordered, fentanyl gtt started as ordered. propofol gtt initiated as ordered.
at bedside. PARK RANGER aware of UO.
[2025-02-04] MEDS: LACTATED RINGERS 250 IV (16:39)
[2025-02-04] MEDS: VITAMIN D3 (cholecalciferol) PO (16:52)
[2025-02-04] MEDS: ZETIA PO (16:52)
[2025-02-04] MEDS: LIPITOR PO (16:52)
--- NOTE | 2025-02-04 18:09 | PTCARENOTE ---
Addendum entered by Kalie Murrell RN 02/04/25 18:41:
per PLAYGROUND DIRECTOR, PEEP placed to 5. POX 100%.
Original Note:
LR bolus given as ordered. pt washed w/ CHG wipes, gown and linens changed. oral hygiene performed, suctioned for thick clear mucous. nodded head yes to pain, given PRN fentanyl 50mcg IVP, protocol followed. turned and repositioned. sacral dressing
in place. PLAYGROUND DIRECTOR aware of air leak in both R pleural CT atriums and CT output.
[2025-02-04 18:15] LABS: Glucose - Point of Care 187 mg/dl (70-99)
[2025-02-04] MEDS: LANTUS 0.1 UNITS SC (18:15)
[2025-02-04 18:18] LABS: Triglycerides 128 mg/dl (10-149)
[2025-02-04] MEDS: DESYREL PO (20:51)
[2025-02-04] MEDS: ANCEF 5 IV (20:51)
[2025-02-04] MEDS: TYLENOL PO (20:52)
[2025-02-04 20:54] LABS: Hematocrit 31.6 % (39.0-52.0); Hemoglobin 9.9 g/dL (13.0-18.0); Mean Corp Hgb Conc. 31.3 g/dL (33.0-37.0); Mean Corpuscular Volume 84.3 fL (80.0-94.0); Platelet Count 204 10^3/uL (130-400); Red Cell Dist. Width 17.8 % (11.5-14.5)
--- NOTE | 2025-02-04 21:00 | PTCARENOTE ---
Report received from ERINN Jade. Walking rounds done. Pt sedated on Fentanyl gtt at 75 mcg/hr and Propofol gtt at 10 mcg/kg/min. RASS -2. Pt noted to have continued +1 air leak to R pleural CT A. No leak to R pleural CT B at present time. Malika,
SPECIMEN TECHNICIAN at bedside to assess pt. Aware of air leaks. Pt turned and CT sites redressed by SPECIMEN TECHNICIAN. All connections of CTs made sure to be secure. No change in ai leak status. Sats maintained at 100%. No crepitus palpated. Pt noted to have increased drainage to
R pleural CT B at 1999 and 2100, 100 mls, and 95 mls. SPECIMEN TECHNICIAN notified. Labs drawn and sent (CBC & PT/INR). Drainage SSG. Pt with #8 ett at 24 cm central lip. BBS present. Rhonchi to R lobe, scattered. L lobes clear. Decreased B bases. Pt on SIMV, 40%
FiO2, rate 14, TV 500, Peep 5, PS 5.
Audible heart tones. + click from mechanical AVR. L radial A-line with pulsatile waveform. Levo gtt remains off. MAPs 67-70's. Pt in SB, rate 47-50's. For pulse and wound assessments ,see flowsheets.
Belly soft, nontender. Pt NPO. Hypoactive bs x 4. Becerra draining clear, yellow urine. Hourly UO. Glucose checks q 6 hours. left for evening at ~ 1915. Pt turned q 2 hours and positioned off of sacral wound (present prior to admission). Ongoing
plan of care.
[2025-02-04 21:05] LABS: INR 1.59; PT 19.5 Sec (11.4-14.6)
[2025-02-04 23:08] LABS: B.E. - POC -2.0 mmol/L; Blood Urea Nitrogen - POC 28 mg/dl (3-120); Chloride - POC 107 mmol/L (96-111); Creatinine - POC 1.07 mg/dl (0.3-1.0); Glucose - POC 175 mg/dl (70-99); HCO3 - POC 23 mmol/L (21-28); Hematocrit - POC 35 % PCV (42-52); Hemodilution- POC No; Hemoglobin Calculated - POC 11.7; Ionized Calcium - POC 1.22 mmol/L (1.15-1.33); Lactate - POC 0.83 mmol/L (0.36-0.75); O2 Saturation %Calculated-POC 99.6 % (94-98); PCO2 - POC 41 mmHg (35-48); PO2 - POC 184 mmHg (83-108); Potassium - POC 4.4 mmol/L (3.5-5.1); Sodium - POC 139 mmol/L (136-145); Specimen Type - POC Arterial; pH - POC 7.37 (7.35-7.45)
--- NOTE | 2025-02-04 23:28 | RESPNOTE ---
pt extubated per MD order @ 2315, pt suctioned orally and down ETT prior to extubation. pt tolerated extubation well, placed on 6L NC. pt able to vocalize, no stridor present.
--- NOTE | 2025-02-04 23:30 | PTCARENOTE ---
Lab results seen by Malika BAL. Orderes given to wean ventilator settings with goal to extubate pt. Pt placed onto CPAP at 2235. Orally and ETT suctioned per protocol. Spont TVex 360-420 mls. Sats maintained at 100%. RR 12-14 br/min. ABG drawn and
run on EPOC via ROLLED HAM LACER. Order given to extubate pt. Pt extubated at 2315 by TROLLEY CLEANER, to 6L/NC. Sats 100%. Post extubation: BBS present. No stridor, no wheezing present. Voice mildly hoarse. No c/o pain at present time. Ongoing plan of care.
--- NOTE | 2025-02-04 23:35 | PTCARENOTE ---
R pleural CT B noted to have +1 air leak after extubation. No crepitus palpated. R Pleural CT A noted to have some tidaling, and continual air leak, ranging from 1-3. Sats maintained at 100% on 6L/NC. No crepitus. Malika BAL notified.
[2025-02-04 23:44] LABS: Glucose - Point of Care 185 mg/dl (70-99)
[2025-02-05] VITALS (18 sets, daily range): BP systolic 105–122; BP diastolic 55–88; PULSE 48; O2SAT 98; BMI 26.7
[2025-02-05] MEDS: DILAUDID 0.25 MG IV (01:31)
--- NOTE | 2025-02-05 01:45 | PTCARENOTE ---
Dilaudid 0.25 mg IV given for 5/10 R mid-back pain. Pt repositioned in bed, boosted upwards and lying on R side with pillow propped. Remains in SB. Remains awake, alert, oriented to name, place, purpose. Speech clear. Sats 100% on 4L/NC.
[2025-02-05] MEDS: ANCEF 5 IV ×2 (04:19→11:49)
[2025-02-05 04:21] LABS: Hematocrit 31.6 % (39.0-52.0); Hemoglobin 10.0 g/dL (13.0-18.0); Mean Corp Hgb Conc. 31.6 g/dL (33.0-37.0); Mean Corpuscular Volume 84.9 fL (80.0-94.0); Platelet Count 190 10^3/uL (130-400); Red Cell Dist. Width 17.7 % (11.5-14.5)
[2025-02-05 04:49] LABS: Blood Urea Nitrogen 35 mg/dl (9-20); Calcium 9.2 mg/dl (8.4-10.2); Carbon Dioxide 23 mmol/L (22-30); Chloride 108 mmol/L (98-107); Estimated Creatinine Clearance 64 ml/min; Glucose 179 mg/dl (70-99); Magnesium 2.0 mg/dl (1.6-2.3); Potassium 5.0 mmol/L (3.5-5.1); Sodium 138 mmol/L (135-145); eGFR > 60.00
--- NOTE | 2025-02-05 05:13 | W.PN.CT ---
Addendum entered and electronically signed by Jose Alejandre MD 02/05/25 13:08:
I saw and examined the patient.
The PA's note was reviewed and I agree with the note.
Comment:
Resume plavix and resume coumadin tonight. Maintain drains for 5-7 days. +1 airleak expected. Lung looks expanded.
Original Note:
Today's Communication / Plan
-
pod#1
- begin Coumadin/Plavix
- begin Flomax prior to discontinuing Becerra
- OOB to chair
Assessment / Plan
-
Robotic assisted thoracic surgery [RATS], Decortication of the right lower and right middle lobes, Decortication of the chest wall as there was a thick pleural rind, Decortication of the diaphragmatic surface, Extensive the loculation and
adhesiolysis- Dr Alejandre-02/04/25-pod #1
1. 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
2. 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
3. Sacral decub
4. Hypertension
5. Hyperlipidemia
6. Recurrent right-sided pleural effusions
7. Diabetes (A1C 6.8)
8. Sinus bradycardia
- Acute postop bloodloss anemia
-Acute post-op respiratory insufficiency
Subjective
Procedure
Robotic assisted thoracic surgery [RATS], Decortication of the right lower and right middle lobes, Decortication of the chest wall as there was a thick pleural rind, Decortication of the diaphragmatic surface, Extensive the loculation and
adhesiolysis- Dr Alejandre-02/04/25-pod #1
-extubated 0
-chest tube sites redressed in effort to reduce air leak>still +1 air leak from RPCT #24F
-
Date of Service: February 05, 2025
Objective Data
-
Lab Results
02/05/25 04:03
02/05/25 04:03
PT 19.5 Sec (11.4-14.6) H 02/04/25 20:41
INR 1.59 02/04/25 20:41
APTT 30.9 Sec (23.4-35.0) 02/04/25 14:16
Vital Signs
Vital Signs
Temp Pulse Resp BP Pulse Ox
98.8 F 54 15 117/59 99
02/05/25 05:00 02/05/25 05:00 02/05/25 05:00 02/05/25 05:00 02/05/25 05:00
CT Intake/Output/Weight
02/04/25 02/04/25 02/05/25
06:59 18:59 06:59
Intake Total 110 / 755 759.0 / 850.0 91.0 / 850.0
Output Total 350 / 1480 1130 / 1480
Balance 110 / 755 409.0 / -630.0 -1039.0 / -630.0
SaO2: 99
[2025-02-05] MEDS: TYLENOL 1000 MG PO ×3 (05:38→20:25)
[2025-02-05] MEDS: ROXICODONE 5 MG PO (05:39)
--- NOTE | 2025-02-05 05:45 | PTCARENOTE ---
Addendum entered by Emile Xiong RN 02/05/25 07:22:
Chest tubes remain with + air leaks and tidaling. CT A with +air leak +3, CT B with + air leak, +2-3. No crepitus. SOFTBALL UMPIRE aware. O2 sats 98-99% on 2L/NC.
Original Note:
Labs drawn and sent. EKG done and shown to SOFTBALL UMPIRE. CXR done. L radial A-line d/c'ed per protocol. Sterile 4x4 gauze applied. SOFTBALL UMPIRE aware of all CT outputs. Roxicodone 5 mg at 0539 for 5/10 R mid-back pain.
[2025-02-05 06:16] LABS: Glucose - Point of Care 186 mg/dl (70-99)
[2025-02-05] MEDS: NOVOLOG FLEXPEN-MODERATE RESISTANCE 1 UNITS SC ×2 (06:16→11:42)
--- NOTE | 2025-02-05 07:20 | PTCARENOTE ---
Pt assisted to sitting then standing with 2 RNs. Weighed on standing scale then helped to recliner chair. Positioned onto R side. Foam and chair pad in use to alleviate pressure to sacral wound. Pt states he has 0/10 pain. Pt in SB, normotensive.
Sats 98-99% on 2L/NC. Report to ERINN Garduno.
--- NOTE | 2025-02-05 08:00 | PTCARENOTE ---
Assumed care of patient. Walking rounds completed with previous RN. Pt assessed while he was sitting in the chair. Pt independent in the chair. Rates right sided surgical pain 4/10, states that is tolerable. Denies shortness of breath and nausea.
Alert & Oriented x4. MAYES with equal strength throughout. SB with 1st degree AVB on tele with rates in the 40s-50s. BP 105/88. +click. Bilateral radial pulses palpable. Bilateral DP pulses weakly palpable. no edema noted. POX 100% on 2L, titrated to
RA, POX 96%. Right lung sounds coarse, Left lung clear. Occasional nonproductive cough. IS encouraged-1000mL achieved. Pleural A and Pleural B chest tubes to -20cm suction draining serosanguineous drainage. +3 air leak and tidaling noted. No
crepitus. Abdomen soft, nontender. Hypoactive BS. Tolerating clear liquid diet. Becerra catheter intact draining adequate amounts of clear yellow urine. Puncture sites to right lateral chest/back approximated with skin glue, ADELIA. CT dressing CDI.
Right medial knee approximated, well healed. Sacral healing stage 4 PI, covered with sacral foam. Left forearm 20g PIV and Right forearm 20g PIV intact. See MAR for medication administration. See worklist for complete nursing assessment. Plan of
care reviewed and patient in agreement.
[2025-02-05] MEDS: LIDOCAINE 4% PATCH 1 PATCH TOPICAL (08:26)
[2025-02-05] MEDS: NEURONTIN 100 MG PO ×3 (08:27→20:25)
[2025-02-05] MEDS: COLACE 100 MG PO ×2 (08:27→20:25)
[2025-02-05] MEDS: TOPROL XL 25 MG PO (08:28)
[2025-02-05] MEDS: HYDROPHOR 1 APPLIC TOPICAL (08:29)
[2025-02-05] MEDS: FLOMAX 0.4 MG PO (08:29)
[2025-02-05] MEDS: BUMEX 2 MG PO (08:29)
[2025-02-05] MEDS: THERAGRAN 1 TABLET PO (08:29)
[2025-02-05] MEDS: JANUVIA 100 MG PO (08:29)
[2025-02-05] MEDS: PACERONE 200 MG PO (08:29)
--- NOTE | 2025-02-05 10:43 | W.PN.ANS.POP ---
Anesthesia Post Operative
- Anesthesia Post Op Note
Vital Signs Stable-See Nursing Note: Yes
Airway Patent: Yes
Adequate Pain Control: Yes
Change in Mental Status: No
Current Postoperative Nausea & Vomiting: No
Anesthesia Complications: No
General Anesthetic Recall: No
Unplanned Admission: No
Post Op Hydration Adequate: Yes
[2025-02-05 11:42] LABS: Glucose - Point of Care 199 mg/dl (70-99)
[2025-02-05] MEDS: PLAVIX 75 MG PO (11:49)
--- NOTE | 2025-02-05 11:59 | CM ---
Reviewed chart. Met with and Mrs. Benavidez to review discharge plans. He states he is feeling well. We reviewed [facility] and he is agreeable to continuing with [facility] and physical therapy. Prior to admission he resides
with his spouse in a a two story home with two steps to enter. She has a full flight of steps to get to bedroom/full bathroom. He has a powder room on the first floor. Prior to admission he ambulated independently in the home and uses a single
point cane in the community. He has been in [facility]. in the past and had also done outpatient rehab. He is current with [facility]. He has a prescription plan. Medical work-up in progress. The discharge plan is to return home
with his spouse and resumption of [facility] when medically stable.
--- NOTE | 2025-02-05 12:00 | PTCARENOTE ---
Pt reassessed. Remains SB with 1st degree AVB with rates in the 50s. BP 122/69. POX 98% on RA. Pleural A and B chest tubes remain with frequent intermittent air leak. Output WNL. Pt remains due to void. Denies pain at this time. Sitting up in the
chair, repositioning self. No other acute changes.
--- NOTE | 2025-02-05 13:57 | W.PN.INTV ---
Today's Communication / Plan
Recommendations
Continue postoperative care
Follow chest tube output
Chest tube will remain as the patient still has an airleak
Analgesia
Increase activity as able
To restart antiplatelets and anticoagulation
Will follow
Assessment
-
74-year-old male with a history of CAD underwent elective cardiac catheterization for exertional chest pain and abnormal stress test with successful PCI of 80% in-stent restenosis and successful PCI of 90% proximal stent edge restenosis complicated
by DE LOS SANTOS dissection underwent emergent pump assisted beating heart bypass with repair of RV injury as well-lift team technician consulted for postoperative ventilator/critical care management 08/14/2024.
Patient initially admitted a day before for heparin bridge.
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
Status post robotic assisted thoracic surgery/loculations and adhesion release of lysis, decortication of the right lower lobe, right middle lobe, chest wall, diaphragmatic surface 02/04/2025.
Conditions present prior to admission:
Protracted hospital stays and postoperative course. Saphenous graft site infection, recurrent right pleural effusion.
Cardiac catheterization status post stents and DE LOS SANTOS dissection
Status post reentry sternotomy, repair of innominate vein injury, repair of RV injury, pump assist beating heart bypass GSV to LAD, repair of SVC/innominate vein-Dr. Delatorre 08/13/2024
CAD/CABG 2008/stent-LAD 2023.
CHF EF 45%.
Hypertension.
Hyperlipidemia.
Type II diabetes.
PAT-resolved with 80 pound weight loss
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
Spinal stenosis.
Tremors
Left knee arthroscopy.
Cataract.
Plan:
Postoperative day 1
Extubated
Encourage incentive spirometer
Increase activity as able
Continue analgesia
Anemia noted-no evidence of acute bleeding
Follow H&H serially
To restart antiplatelets and anticoagulation-monitor H&H
Hemodynamics -stable
Arterial aneurysms continue
Chest tube with no excessive drainage-with minimal air leak with respiratory variation.
Chest x-ray reviewed: With no pneumothorax or fluid collections. Postoperative changes noted. Right chest tube in place. Right basilar loculated pneumothorax. Trapped lung physiology-suspected
Advance diet
Head of the bed elevation
Glycemic control per protocol
DVT prophylaxis when safe from the surgical perspective. Restart anticoagulation when safe from the surgical perspective.
Pulmonary will follow
Diagnostic Data:
Chest x-ray 02/04/2025: Right postoperative changes. Chest tube in place.
Chest x-ray 08/26/18-NAD�������
Chest x-ray 08/13/2024-endotracheal tube tip 4.4 cm above indira, mild atelectasis left base
Chest x-ray 08/14/2024-no pneumothorax, basilar opacifications
CT neck 05/03/21--severe degenerative/arthritic changes noted on the left side where the collar bone and chest bone or sternum meet -Sternoclavicular-which could explain the lump that he feels,, some carotid artery closure was noted and warrants
carotid ultrasounds, incidentally, his epiglottis also had a lot of calcifications which sometimes can be seen with people that have swallowing difficulties-Patient notified-we'll discuss carotid ultrasounds at next visit.�������
CT head angiogram 07/31/2023-no CT evidence for intracranial aneurysm
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
Brain MRA 06/28/21-no hemodynamically significant stenosis, branch occlusion or aneurysm�������
Neck MRA 06/28/21-no significant carotid plaque formation or hemodynamically significant stenosis
Echocardiogram 12/25/19-EF 65-70%�������
Echocardiogram 04/18/2024-EF 45-50%
Nuclear stress test 05/17/21-Systolic function moderately reduced, EF 41%, moderate risk study.
Cardiac catheterization 08/13/2024-successful PCI mid LAD distal stent edge haziness and 80% ISR lesion with reduction in stenosis, successful PCI 90% DE LOS SANTOS/LAD with reduction of stenosis to 0% with subsequent complication by dissection of DE LOS SANTOS graft
after post dilation
PSG around 2006 AHI-36, desaturation stefano 85%, CPAP 7-cm�������
HST-after 80 pound weight loss-05/23/21-ROSE-1.4, desaturation stefano 89%.
-----
\\
Subjective Dataa
Subjective Data
Date of Service:
Date of Service: February 05, 2025
Chief Complaint: Pneumonia Follow Up (Status post thoracotomy-decortication)
Subjective:
Pain is relatively controlled
Chest tube in place with no airleak
Extubated successfully and tolerating well
Review of Systems
General: Pain (Chest tube entry site)
Cardiopulmonary: Dyspnea ( not at rest)
GI: Abdominal Pain (n) and Nausea
Neuro: Headache (n)
Objective Data
Data Reviewed
Vital Signs / I&O / Oxygen:
Vital Signs
Temp Pulse Resp BP Pulse Ox
97.3 F 52 16 122/69 98
02/05/25 12:08 02/05/25 12:08 02/05/25 12:08 02/05/25 12:08 02/05/25 12:08
Intake and Output
02/04/25 02/05/25 02/06/25
06:59 06:59 06:59
Intake Total 755 / 755 850.0 / 850.0 480 / 480
Output Total 1495 / 1630 265 / 265
Balance 755 / 755 -645.0 / -780.0 215 / 215
SaO2 [SIMV] 100
SaO2 98
Nasal Cannula flow liters per 2
minute
Physical Exam
HEENT: Normocephalic
Cardiovascular: S1-S2
Respiratory: Non-Labored Respirations and Chest Tube (Air leak noted, no excessive drainage)
GI: Soft and Non Distended
Neurology: Awake
Skin: Warm
Labs/Micro/Reports
Lab Data
02/05/25 04:03
02/05/25 04:03
Laboratory Results
02/04/25 02/04/25
14:16 20:41
PT 19.2 H 19.5 H
INR 1.57 1.59
APTT 30.9
pH 7.35
pCO2 44
pO2 138 H
HCO3 24.3
O2 Delivery Level
--- NOTE | 2025-02-05 16:30 | PTCARENOTE ---
Pt reassessed. Remains SB with 1st degree AVB with rates in the 50s. BP 107/60. POX 99% Surgical sites stable. CT output WNL.Tolerating meals. Voided 300mL carlos urine in the urinal. Sacral would collagen applied and sacral foam replaced.
[2025-02-05] MEDS: NOVOLOG FLEXPEN-MODERATE RESISTANCE 3 UNITS SC (16:40)
[2025-02-05 16:41] LABS: Glucose - Point of Care 204 mg/dl (70-99)
[2025-02-05] MEDS: LIPITOR 40 MG PO (18:09)
[2025-02-05] MEDS: ZETIA 10 MG PO (18:09)
[2025-02-05] MEDS: VITAMIN D3 (cholecalciferol) 25 MCG PO (18:09)
[2025-02-05] MEDS: COUMADIN 2.5 MG PO (18:09)
--- NOTE | 2025-02-05 20:00 | PTCARENOTE ---
assumed care of pt from previous RN. pt A&Ox4, resting in chair at time of assessment. SB w/ 1st degree AVB on tele-monitor. POX 99% on RA. CT x2 (R pleural A and R pleural B) to -20cm wall suction, draining serosanguineous drainage. air leak and
tidaling noted in both CTs. no crepitus. abd s/n, +BS. voiding clear, yellow colored urine. all surgical sites stable, CDI. PIV x2 intact. see worklist for complete nursing assessment, interventions, VS, and I&Os.
[2025-02-05 20:23] LABS: Glucose - Point of Care 176 mg/dl (70-99)
[2025-02-05] MEDS: DESYREL 50 MG PO (20:25)
[2025-02-05] MEDS: REMOVE LIDOCAINE PATCH 1 PATCH REMOVE (20:25)
[2025-02-05] MEDS: LANTUS 0.19 UNITS SC (20:25)
--- NOTE | 2025-02-05 23:00 | PTCARENOTE ---
report received from previous RN, walking rounds done. pt in bed, AA&Ox4. VS. SB w 1st degree AVB on monitor, HR 40s. POX 94% on RA. CT x2 intact to -20cm wall suction, draining WNL, air leak and tidaling noted in both CTs, no crepitus. abd s/n,
+BS. all surgical sites stable, CDI. PIV x2 intact. see worklist for complete nursing assessment, interventions, VS, and I&Os.
[2025-02-06] VITALS (10 sets, daily range): BP systolic 97–164; BP diastolic 46–77; PULSE 50; O2SAT 98; BMI 27.2
[2025-02-06] MEDS: ROXICODONE 5 MG PO ×3 (04:03→21:01)
[2025-02-06 04:47] LABS: INR 1.91; PT 22.3 Sec (11.4-14.6)
[2025-02-06] MEDS: TYLENOL PO ×2 (06:51→21:28)
--- NOTE | 2025-02-06 08:00 | W.PN.CT ---
Today's Communication / Plan
-
pod#2
- received coum 2.5 02/05 -> INR today 1.9
- CTs draining well, +intermittent airleaks, f/u Xray this AM
- wean 2LNC as tolerates, spo2 96%
- begin Flomax prior to discontinuing Becerra
- OOB to chair
- dispo planning
Assessment / Plan
-
Robotic assisted thoracic surgery [RATS], Decortication of the right lower and right middle lobes, Decortication of the chest wall as there was a thick pleural rind, Decortication of the diaphragmatic surface, Extensive the loculation and
adhesiolysis- Dr Alejandre-02/04/25-pod #2
1. 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
2. 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
3. Sacral decub
4. Hypertension
5. Hyperlipidemia
6. Recurrent right-sided pleural effusions
7. Diabetes (A1C 6.8)
8. Sinus bradycardia
- Acute postop bloodloss anemia
-Acute post-op respiratory insufficiency
Discussed patient care with: Care Team
Subjective
Procedure
Robotic assisted thoracic surgery [RATS], Decortication of the right lower and right middle lobes, Decortication of the chest wall as there was a thick pleural rind, Decortication of the diaphragmatic surface, Extensive the loculation and
adhesiolysis- Dr Alejandre-02/04/25-pod #2
-extubated 2320
-chest tube sites redressed in effort to reduce air leak>still +1 air leak from RPCT #24F
-
Date of Service: February 06, 2025
Objective Data
-
Lab Results
02/05/25 04:03
02/05/25 04:03
PT 19.5 Sec (11.4-14.6) H 02/04/25 20:41
INR 1.59 02/04/25 20:41
APTT 30.9 Sec (23.4-35.0) 02/04/25 14:16
Vital Signs
Vital Signs
Temp Pulse Resp BP Pulse Ox
97.9 F 48 16 112/59 99
02/05/25 20:00 02/05/25 21:00 02/05/25 20:00 02/05/25 19:15 02/05/25 20:00
CT Intake/Output/Weight
02/05/25 02/05/25 02/06/25
06:59 18:59 06:59
Intake Total 91.0 / 850.0 900 / 900
Output Total 1145 / 1630 650 / 900 250 / 900
Balance -1054.0 / -780.0 250 / 0 -250 / 0
SaO2: 99
Physical Exam
-
General: Awake, Oriented and AOx3
Cardiovascular: Regular rate & rhythm
Respiratory: Clear and Equal
Sternum: Stable
Incision: Clean, Dry and Intact
Extremities: No Edema
Data Reviewed
-
Lab Results: Results Reviewed
Medications: Active Meds Reviewed
Chest X-Ray: Image Reviewed
Vital Signs / Labs
-
Vital Signs and Labs:
Temp Pulse Resp BP Pulse Ox
97.8 F 43 18 106/63 96
02/06/25 04:06 02/06/25 07:00 02/06/25 04:06 02/06/25 04:06 02/06/25 04:06
02/05/25 04:03
02/05/25 04:03
02/05/25 02/05/25 02/05/25
11:41 16:40 20:21
PT
POC Glucose 199 H 204 H 176 H
02/06/25
04:18
PT 22.3 H
POC Glucose
--- NOTE | 2025-02-06 08:30 | PTCARENOTE ---
Resumed care of patient. Walking rounds completed with previous RN. Pt assessed while he was sitting in the chair. Alert and oriented x4. Pt rates right sided chest/back pain 5/10-see MAR. Denies nausea and shortness of breath. MAYES with equal
strength throughout. SB with 1st degree AVB with rates in the 40s. BP 113/57. +click. Bilateral radial pulses palpable. DP pulses weakly palpable. +1 ankle edema . POX 99% on RA. Right lung coarse. Left lung clear. IS encouraged-1000ml achieved.
Frequent nonproductive cough. Pleural A and Pleural B chest tubes to -20cm suction draining serosanguinous fluid WNL. +3 air continuous/intermittent air leaks. +tidaling. No crepitus. Abdomens soft, round, nontender. Hypoactive BS. Pt voiding carlos
urine in the urinal. Right lateral puncture sites approximated, [employer] [place]. CT dressing with small amount of serosanguinous drainage. Sacral PI with foam dressing intact. Right leg incision healed. PIV x2. See MAR for medication administration. see
worklist for complete nursing assessment. Plan of car reviewed and patient in agreement.
[2025-02-06 08:35] LABS: Glucose - Point of Care 140 mg/dl (70-99)
[2025-02-06] MEDS: NOVOLOG FLEXPEN-MODERATE RESISTANCE SC (08:36)
[2025-02-06] MEDS: LIDOCAINE 4% PATCH 1 PATCH TOPICAL (08:36)
[2025-02-06] MEDS: BUMEX 2 MG PO (08:37)
[2025-02-06] MEDS: FLOMAX 0.4 MG PO (08:37)
[2025-02-06] MEDS: TOPROL XL 25 MG PO (08:37)
[2025-02-06] MEDS: NEURONTIN 100 MG PO ×3 (08:37→21:01)
[2025-02-06] MEDS: COLACE 100 MG PO ×2 (08:37→20:55)
[2025-02-06] MEDS: PACERONE 200 MG PO (08:37)
[2025-02-06] MEDS: THERAGRAN 1 TABLET PO (08:37)
[2025-02-06] MEDS: JANUVIA 100 MG PO (08:37)
[2025-02-06] MEDS: HYDROPHOR 1 APPLIC TOPICAL (08:37)
[2025-02-06] MEDS: PLAVIX 75 MG PO (08:37)
[2025-02-06] MEDS: FLEXERIL 5 MG PO (08:54)
[2025-02-06] MEDS: MUCINEX 1200 MG PO ×2 (09:20→20:55)
[2025-02-06 09:38] LABS: Hematocrit 34.6 % (39.0-52.0); Hemoglobin 10.7 g/dL (13.0-18.0); Mean Corp Hgb Conc. 30.9 g/dL (33.0-37.0); Mean Corpuscular Volume 86.1 fL (80.0-94.0); Platelet Count 219 10^3/uL (130-400); Red Cell Dist. Width 18.1 % (11.5-14.5)
[2025-02-06 09:57] LABS: Blood Urea Nitrogen 52 mg/dl (9-20); Calcium 9.0 mg/dl (8.4-10.2); Carbon Dioxide 28 mmol/L (22-30); Chloride 102 mmol/L (98-107); Estimated Creatinine Clearance 58 ml/min; Glucose 144 mg/dl (70-99); Potassium 4.5 mmol/L (3.5-5.1); Sodium 135 mmol/L (135-145); eGFR > 60.00
[2025-02-06] MEDS: NOVOLOG FLEXPEN-MODERATE RESISTANCE 1 UNITS SC (11:33)
[2025-02-06 11:36] LABS: Glucose - Point of Care 185 mg/dl (70-99)
--- NOTE | 2025-02-06 11:41 | PTCARENOTE ---
Pt reassessed. SB with 1st degree AVB with rates 40s-50s. POX 98% on RA. Surgical sites stable. CT output WNL. Continues to have air leaks B >A. Ambulated in the room with PT.
--- NOTE | 2025-02-06 12:09 | W.PN.INTV ---
Today's Communication / Plan
Recommendations
Did well postoperatively
Has a mild air leak-chest tube management per primary team
Sign off
Assessment
-
74-year-old male with a history of CAD underwent elective cardiac catheterization for exertional chest pain and abnormal stress test with successful PCI of 80% in-stent restenosis and successful PCI of 90% proximal stent edge restenosis complicated
by DE LOS SANTOS dissection underwent emergent pump assisted beating heart bypass with repair of RV injury as well-note taker consulted for postoperative ventilator/critical care management 08/14/2024.
Patient initially admitted a day before for heparin bridge.
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
Status post robotic assisted thoracic surgery/loculations and adhesion release of lysis, decortication of the right lower lobe, right middle lobe, chest wall, diaphragmatic surface 02/04/2025.
Conditions present prior to admission:
Protracted hospital stays and postoperative course. Saphenous graft site infection, recurrent right pleural effusion.
Cardiac catheterization status post stents and DE LOS SANTOS dissection
Status post reentry sternotomy, repair of innominate vein injury, repair of RV injury, pump assist beating heart bypass GSV to LAD, repair of SVC/innominate vein-Dr. Delatorre 08/13/2024
CAD/CABG 2008/stent-LAD 2023.
CHF EF 45%.
Hypertension.
Hyperlipidemia.
Type II diabetes.
PAT-resolved with 80 pound weight loss
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
Spinal stenosis.
Tremors
Left knee arthroscopy.
Cataract.
Plan:
Postoperative day 2
Not on supplemental oxygen
Lung exam relatively clear
Encourage incentive spirometer
Increase activity as able
Continue analgesia-pain is controlled
Anemia noted-no evidence of acute bleeding
Follow H&H serially-stable
Antiplatelets and anticoagulant restarted. Monitor for bleeding.
Hemodynamics -stable
Chest tube with no excessive drainage-intermittent airleak. Improved.
Chest x-ray reviewed 02/06/2025: With no pneumothorax or fluid collections. Postoperative changes noted. Right chest tube in place. Right basilar loculated pneumothorax. Trapped lung physiology-suspected
Advance diet
Head of the bed elevation
Glycemic control per protocol
DVT prophylaxis: Anticoagulation antiplatelets restarted.
From the critical care perspective no additional recommendation.
Chest tube management per primary team.
Sign off, please call with questions

Diagnostic Data:
Chest x-ray 02/04/2025: Right postoperative changes. Chest tube in place.
Chest x-ray 08/26/18-NAD�������
Chest x-ray 08/13/2024-endotracheal tube tip 4.4 cm above indira, mild atelectasis left base
Chest x-ray 08/14/2024-no pneumothorax, basilar opacifications
CT neck 05/03/21--severe degenerative/arthritic changes noted on the left side where the collar bone and chest bone or sternum meet -Sternoclavicular-which could explain the lump that he feels,, some carotid artery closure was noted and warrants
carotid ultrasounds, incidentally, his epiglottis also had a lot of calcifications which sometimes can be seen with people that have swallowing difficulties-Patient notified-we'll discuss carotid ultrasounds at next visit.�������
CT head angiogram 07/31/2023-no CT evidence for intracranial aneurysm
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
Brain MRA 06/28/21-no hemodynamically significant stenosis, branch occlusion or aneurysm�������
Neck MRA 06/28/21-no significant carotid plaque formation or hemodynamically significant stenosis
Echocardiogram 12/25/19-EF 65-70%�������
Echocardiogram 04/18/2024-EF 45-50%
Nuclear stress test 05/17/21-Systolic function moderately reduced, EF 41%, moderate risk study.
Cardiac catheterization 08/13/2024-successful PCI mid LAD distal stent edge haziness and 80% ISR lesion with reduction in stenosis, successful PCI 90% DE LOS SANTOS/LAD with reduction of stenosis to 0% with subsequent complication by dissection of DE LOS SANTOS graft
after post dilation
PSG around 2006 AHI-36, desaturation stefano 85%, CPAP 7-cm�������
HST-after 80 pound weight loss-05/23/21-ROSE-1.4, desaturation stefano 89%.
-----
\\
Subjective Dataa
Subjective Data
Date of Service:
Date of Service: February 06, 2025
Chief Complaint: Sports Specialist Follow Up (Status post decortication)
Subjective:
Patient offers no new complaints
No overnight events
Not on supplemental oxygen
Denies increased cough or phlegm production
Pain is relatively controlled
Objective Data
Data Reviewed
Vital Signs / I&O / Oxygen:
Vital Signs
Temp Pulse Resp BP Pulse Ox
97.4 F 50 16 151/75 99
02/06/25 11:39 02/06/25 11:39 02/06/25 11:39 02/06/25 11:26 02/06/25 11:39
Intake and Output
02/05/25 02/06/25 02/07/25
06:59 06:59 06:59
Intake Total 850.0 / 850.0 900 / 900 240 / 240
Output Total 1495 / 1630 1520 / 1520 465 / 465
Balance -645.0 / -780.0 -620 / -620 -225 / -225
SaO2 [SIMV] 100
SaO2 99
Nasal Cannula flow liters per 2
minute
Physical Exam
General: Comfortable
HEENT: Normocephalic
Cardiovascular: S1-S2
Respiratory: Non-Labored Respirations and Chest Tube (Air leak noted intermittent, no excessive drainage)
GI: Soft and Non Distended
Neurology: Awake
Skin: Warm
Labs/Micro/Reports
Lab Data
02/06/25 09:18
02/06/25 09:18
Laboratory Results
02/06/25
04:18
PT 22.3 H
INR 1.91
--- NOTE | 2025-02-06 13:29 | PN.CDI ---
CDI
- -
CDI:
Physician Documentation Request
Admit Date: 02/02/25 08:[address] Surgery,
Clinical Indicators:
Patient admitted recurrent pleural effusions; s/p RATS 02/04.
Patient on room air on admission.
02/04 Operative note, 'Entrapped right lower lobe with recurrent effusions and respiratory failure'
02/05 PN, '-Acute post-op respiratory insufficiency'
02/05 02 weaned from 4 L NC to room air on 02/05; no further 02 requirement.
Due to potentially conflicting documentation, please clarify which of the following accurately represents the patient's respiratory status:
Acute post-op respiratory insufficiency only
Respiratory failure, please specify type/acuity
Other, please specify
Additional information for Respiratory Failure:
Recognized criteria for Respiratory Failure (Source: [facility] Hospitalist May 2013)
ABGs: (1 or more) Symptoms Indicate:
1. p)2 <60 or RA SPO2 <91% on RA 1. Tachypnea, SOB, dyspnea 1. Type as:
2. pCO2 50 and pH <7.35 2. Use of accessory muscles a. Hypoxic
3. pO2 decrease of pCO2 increase by 3. Pallor or cyanosis b. Hypercapnic
10 mmHg from baseline if known 4. Anxiety or restlessness 2. If due to procedure or due to another cause
5. Unable to speak in full sentences
Supplemental O2 of > 40% Intubation is not required
Use of terms such as suspected, likely, concern for, or probable (associated with a specific diagnosis that is being evaluated, monitored, or treated as if it exists) are acceptable and can be coded in the inpatient setting, when documented at the
time of discharge.
Thank you,
RONNIE Martell RN
CDI Specialist
available via tiger text
Please use your independent medical judgment in providing your response.
[2025-02-06] MEDS: TYLENOL 1000 MG PO (14:12)
--- NOTE | 2025-02-06 14:14 | CM ---
Reviewed chart. Met with and Mrs. Ramirez to review discharge plans. Mr. Benavidez was asleep. Telephone call to [facility] to update them that he will be going directly home with them for the wound care. Prior to admission Mr. Benavidez
resides with his spouse in a two story home with two steps to enter. He has a full flight of steps to get to bedroom/full bathroom. He has a powder room on the first floor. Prior to admission he was independent with ambulation in the home and uses
the single point cane in the community. He is independent with adls. He has been in [facility].in the past. He did outpatient therapy also. Currently he is current with [facility] and would like to continue with [facility] for
nursing and therapy. Medical work-up in progress. The discharge plan is to return home with his spouse and resumption of [facility] when medically stable.
--- NOTE | 2025-02-06 15:00 | PTCARENOTE ---
Handoff report received from Queta PLASENCIA. Pt AOx4, SB with first degree AVB 50s on tele, + click from previous valve replacement, SBP 120s, RA satting 98%. L lung clear and diinished in bases, R lung course throughout. IS up to 1000. Pt states pain
is manageable at this time. R lateral chest tube site dressings CDI. CT x2 to -20sx with +3 airleak, no crepitus noted at this time, providers are aware. Pt OOB at this time. at bedside. All needs met at this time, call xiao within reach.
[2025-02-06 16:36] LABS: Glucose - Point of Care 243 mg/dl (70-99)
[2025-02-06] MEDS: NOVOLOG FLEXPEN-MODERATE RESISTANCE 3 UNITS SC (17:24)
[2025-02-06] MEDS: VITAMIN D3 (cholecalciferol) 25 MCG PO (17:28)
[2025-02-06] MEDS: ZETIA 10 MG PO (17:28)
[2025-02-06] MEDS: LIPITOR 40 MG PO (17:28)
[2025-02-06] MEDS: COUMADIN 2.5 MG PO (17:29)
[2025-02-06] MEDS: TYLENOL 650 MG PO (17:51)
--- NOTE | 2025-02-06 19:00 | PTCARENOTE ---
VSS at this time. Pt ambulated with Ax1 and cane in room. Dressing change completed for healing stage IV sacral slit. Pt c/o pain, PRN tylenol given. OOB in chair at this time, tolerating. CT A remains with constant +[address] B tidaling noted,
but no continuous airleak at this time, just present airleak +3 with coughing. All needs met at this time, call xiao within reach. Handoff report given to nightshift RN.
--- NOTE | 2025-02-06 20:00 | PTCARENOTE ---
Assumed care of the patient at 1900. Patient OOB to chair, family at bedside. AOx3, c/o 5/10 R torso pain; pain management options offered, patient opted to await being BIB. SB rates 40-50's on the monitor, heart tones audible, no edema appreciated,
pulses palpable. CTx2 to -20 cm wall suction with air leak and tidaling present in each, no crepitus noted; dressing CDI; occasional cough, coarse R lung sounds, L lungs diminished at the base, IS encouraged. Abd SNT, round, hypoactive, +BS, no n/v,
bedtime BG checked and no additional regular insulin at this time per CVPA; Lantus administered as ordered. All surgical sites CDI/stable; RLE unchanged, sacral wound with dressing. PIVx2 INT. Patient assisted back into bed x 1-2. See nursing
worklist for additional intervention details.
[2025-02-06] MEDS: REMOVE LIDOCAINE PATCH 1 PATCH REMOVE (20:57)
[2025-02-06 22:38] LABS: Glucose - Point of Care 162 mg/dl (70-99)
[2025-02-06] MEDS: LANTUS 0.19 UNITS SC (22:38)
[2025-02-06] MEDS: DESYREL 50 MG PO (22:38)
[2025-02-07] VITALS (8 sets, daily range): BP systolic 101–122; BP diastolic 49–66; BMI 26.9
--- NOTE | 2025-02-07 | PTCARENOTE ---
VSS, assessment of needs ongoing, sleeping between care.
--- NOTE | 2025-02-07 02:18 | W.PN.CT ---
Today's Communication / Plan
-
POD #3:
-Received 2 doses of coumadin 2.5 (02/05), 2.5 (02/06) INR 1.95
-Dose Coumadin today
-Saturating well on RA
-CTs-pleural A/#24 w/ 70 cc over 8 hrs, pleural B/#28 w/ 65 cc over 8 hrs
+ 1 intermittent air leak in pleural A/#24
Less frequent +1 intermittnet air leak in pleural B/#28-mostly with talking and deep breathing
-F/U AM CXR
-Continue Flomax 2/2 BPH
- OOB to chair
-Cont Lipitor 40, Zetia 10, Amio 200 daily, Bumex 2 mg daily, Toprol XL 25 daily, Plavix 75
-Cont current SC and PO DM med regimen
- Dispo planning
Assessment / Plan
-
Robotic assisted thoracic surgery [RATS], Decortication of the right lower and right middle lobes, Decortication of the chest wall as there was a thick pleural rind, Decortication of the diaphragmatic surface, Extensive the loculation and
adhesiolysis- Dr Alejandre-02/04/25-pod #3
1. 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
2. 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
3. Sacral decub
4. Hypertension
5. Hyperlipidemia
6. Recurrent right-sided pleural effusions
7. Diabetes (A1C 6.8)
8. Sinus bradycardia
- Acute postop bloodloss anemia
-Acute post-op respiratory insufficiency
Discussed patient care with: Nursing, Pharmacy and Care Team
Subjective
Procedure
Robotic assisted thoracic surgery [RATS], Decortication of the right lower and right middle lobes, Decortication of the chest wall as there was a thick pleural rind, Decortication of the diaphragmatic surface, Extensive the loculation and
adhesiolysis- Dr Alejandre-02/04/25-pod #3
-extubated 2319
-chest tube sites redressed in effort to reduce air leak>still +1 air leak from RPCT #24F
-
Date of Service: February 07, 2025
Objective Data
-
PT 22.3 Sec (11.4-14.6) H 02/06/25 04:18
INR 1.91 02/06/25 04:18
APTT 30.9 Sec (23.4-35.0) 02/04/25 14:16
Vital Signs
Vital Signs
Temp Pulse Resp BP Pulse Ox
97.7 F 47 16 107/49 94
02/07/25 00:17 02/07/25 01:00 02/07/25 00:17 02/07/25 00:17 02/07/25 01:00
CT Intake/Output/Weight
02/06/25 02/06/25 02/07/25
06:59 18:59 06:59
Intake Total 240 / 240
Output Total 870 / 1520 1465 / 2000 535 / 2000
Balance -870 / -620 -1225 / -1760 -535 / -1760
SaO2: 94 (Room air )
Physical Exam
-
General: AOx3
Cardiovascular: Other (Sinus Daniel (47 bpm))
Respiratory: Other (Coarse breath sounds B/L R>L )
Sternum: Other (Surgical robotic incision sites stable )
Incision: Clean, Dry and Intact
Extremities: No Edema
Data Reviewed
-
Lab Results: Results Reviewed
Medications: Active Meds Reviewed
Chest X-Ray: Image Reviewed
--- NOTE | 2025-02-07 04:00 | PTCARENOTE ---
VSS, no changes
[2025-02-07 04:38] LABS: Hematocrit 31.1 % (39.0-52.0); Hemoglobin 9.8 g/dL (13.0-18.0); Mean Corp Hgb Conc. 31.5 g/dL (33.0-37.0); Mean Corpuscular Volume 85.0 fL (80.0-94.0); Platelet Count 194 10^3/uL (130-400); Red Cell Dist. Width 18.0 % (11.5-14.5)
[2025-02-07 04:43] LABS: INR 1.95; PT 22.4 Sec (11.4-14.6)
[2025-02-07 04:56] LABS: Blood Urea Nitrogen 52 mg/dl (9-20); Calcium 8.7 mg/dl (8.4-10.2); Carbon Dioxide 27 mmol/L (22-30); Chloride 104 mmol/L (98-107); Estimated Creatinine Clearance 64 ml/min; Glucose 148 mg/dl (70-99); Magnesium 1.8 mg/dl (1.6-2.3); Potassium 4.1 mmol/L (3.5-5.1); Sodium 136 mmol/L (135-145); eGFR > 60.00
[2025-02-07] MEDS: MAGNESIUM SULFATE 50 IV (06:28)
[2025-02-07] MEDS: TYLENOL 1000 MG PO ×3 (06:28→22:17)
[2025-02-07 07:57] LABS: Glucose - Point of Care 160 mg/dl (70-99)
[2025-02-07] MEDS: NOVOLOG FLEXPEN-MODERATE RESISTANCE 1 UNITS SC (07:57)
[2025-02-07] MEDS: MUCINEX 1200 MG PO ×2 (08:09→20:10)
[2025-02-07] MEDS: PLAVIX 75 MG PO (08:09)
[2025-02-07] MEDS: NEURONTIN 100 MG PO ×3 (08:10→22:17)
[2025-02-07] MEDS: PACERONE 200 MG PO (08:10)
[2025-02-07] MEDS: BUMEX 2 MG PO (08:10)
[2025-02-07] MEDS: FLOMAX 0.4 MG PO (08:10)
[2025-02-07] MEDS: LIDOCAINE 4% PATCH 1 PATCH TOPICAL (08:11)
[2025-02-07] MEDS: COLACE 100 MG PO ×2 (08:11→20:10)
[2025-02-07] MEDS: THERAGRAN 1 TABLET PO (08:11)
[2025-02-07] MEDS: JANUVIA 100 MG PO (08:11)
[2025-02-07] MEDS: TOPROL XL 25 MG PO (08:22)
[2025-02-07] MEDS: HYDROPHOR 1 APPLIC TOPICAL (08:23)
--- NOTE | 2025-02-07 09:30 | PTCARENOTE ---
Assumed patient care from nightshift RN. Patient OOB to chair, fully alert and oriented. Denies pain. SB rates 40-50's on the monitor, heart tones audible, trace lower extremity edema present, pulses palpable. CTx2 to -20 cm wall suction with
tidaling present in each, air leak present in chamber A only, no crepitus noted; dressing intact; occasional cough, coarse R lung sounds, IS encouraged. Pt passing flatus, bowel sounds present, no n/v. Voiding in bedside commode. AC/HS glucose
checked, coverage administered per protocol. All surgical sites CDI/stable; RLE unchanged, sacral wound re-dressed with bedside, states that wound is getting worse and wants us to keep a close eye on it. Cleansed with saline, packed collagen,
foam border sacral dressing placed overtop. PIVx2 present. Patient assist x1 OOB.
[2025-02-07 11:17] LABS: Glucose - Point of Care 201 mg/dl (70-99)
[2025-02-07] MEDS: NOVOLOG FLEXPEN-MODERATE RESISTANCE 3 UNITS SC (11:17)
--- NOTE | 2025-02-07 13:24 | PTCARENOTE ---
Pt OOB in chair, denies pain. Vital signs stable. Chest tubes x2 remain intact, -20 cm suction, tidaling and air leak still present in chamber A, only tidaling present in chamber B. Stands up from chair with assist x1 to bedside commode.
[2025-02-07 16:13] LABS: Glucose - Point of Care 143 mg/dl (70-99)
[2025-02-07] MEDS: NOVOLOG FLEXPEN-MODERATE RESISTANCE SC (16:13)
[2025-02-07] MEDS: LIPITOR 40 MG PO (17:50)
[2025-02-07] MEDS: ZETIA 10 MG PO (17:50)
[2025-02-07] MEDS: VITAMIN D3 (cholecalciferol) 25 MCG PO (17:50)
[2025-02-07] MEDS: COUMADIN 2.5 MG PO (17:51)
--- NOTE | 2025-02-07 18:17 | PTCARENOTE ---
Patient OOB in chair, denies pain. Attempting bowel movements frequently, passing flatus. Voiding frequently, diuresis given. Chest tube output 70cc serosanguineous in each channel for shift, air leak and tidaling present in each. Surgical sites all
clean,dry,intact
--- NOTE | 2025-02-07 20:00 | PTCARENOTE ---
Resumed care of the patient at 1900. Patient OOB to chair. AOx3. SB 40's on the monitor, heart tones audible with a click, trace edema appreciated, pulses palpable. CTx2 to -20 cm wall suction with air leak and tidaling present in each chamber, no
crepitus noted; dressing CDI; occasional cough, coarse R lung sounds, L lungs diminished at the base, IS encouraged, 1000 achieved, proper use reinforced. Abd SNT, round, hypoactive BS. All surgical sites CDI/stable; RLE unchanged, sacral wound with
dressing. PIVx2 INT, dressings changed. Patient assisted back into bed x 1. See nursing worklist for additional intervention details.
[2025-02-07] MEDS: REMOVE LIDOCAINE PATCH 1 PATCH REMOVE (20:10)
[2025-02-07 22:17] LABS: Glucose - Point of Care 163 mg/dl (70-99)
[2025-02-07] MEDS: LANTUS 0.19 UNITS SC (22:17)
[2025-02-07] MEDS: DESYREL 50 MG PO (22:17)
[2025-02-08 00:22] VITALS: BP 108/54
--- NOTE | 2025-02-08 00:48 | PTCARENOTE ---
Patient sleeping between care. VSS, no needs expressed at this time. Afebrile, urinal emptied. See work list.
[2025-02-08 03:50] VITALS: BP 113/50
--- NOTE | 2025-02-08 04:23 | PTCARENOTE ---
Pt with some blood tinged sputum, denies SOB, SpO2 96% on RA, otherwise no changes. CVNP made aware. Pt in bed, assessment of needs ongoing.
[2025-02-08 04:37] LABS: Hematocrit 29.8 % (39.0-52.0); Hemoglobin 9.6 g/dL (13.0-18.0); Mean Corp Hgb Conc. 32.2 g/dL (33.0-37.0); Mean Corpuscular Volume 83.0 fL (80.0-94.0); Platelet Count 211 10^3/uL (130-400); Red Cell Dist. Width 17.7 % (11.5-14.5)
[2025-02-08 04:41] LABS: INR 1.84; PT 21.4 Sec (11.4-14.6)
[2025-02-08 04:54] LABS: Blood Urea Nitrogen 50 mg/dl (9-20); Calcium 8.8 mg/dl (8.4-10.2); Carbon Dioxide 26 mmol/L (22-30); Chloride 105 mmol/L (98-107); Estimated Creatinine Clearance 70 ml/min; Glucose 133 mg/dl (70-99); Magnesium 2.0 mg/dl (1.6-2.3); Potassium 3.8 mmol/L (3.5-5.1); Sodium 135 mmol/L (135-145); eGFR > 60.00
[2025-02-08] MEDS: TYLENOL 1000 MG PO ×3 (05:50→22:37)
[2025-02-08 05:56] VITALS: BMI 26.7
--- NOTE | 2025-02-08 05:58 | W.PN.CT ---
Today's Communication / Plan
-
POD #4
-s/p 2.5 mg warfarin yesterday, INR 1.84 today
-CTs-pleural A/#24 100/170 cc out in 12/24 hrs, pleural B/#28 90/160 cc out in 12/24 hrs, remains with + 1 intermittent air leak in pleural A/#24
-Daily PCXR
-Continue Flomax 2/2 BPH
-OOB to chair
-Cont Lipitor 40, Zetia 10, Amio 200 daily, Bumex 2 mg daily, Toprol XL 25 daily, Plavix 75
-Cont current SC and PO DM med regimen
Assessment / Plan
-
Robotic assisted thoracic surgery [RATS], Decortication of the right lower and right middle lobes, Decortication of the chest wall as there was a thick pleural rind, Decortication of the diaphragmatic surface, Extensive the loculation and
adhesiolysis- Dr Alejandre-02/04/25-pod #4
1. 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
2. 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
3. Sacral decub
4. Hypertension
5. Hyperlipidemia
6. Recurrent right-sided pleural effusions
7. Diabetes (A1C 6.8)
8. Sinus bradycardia
- Acute postop bloodloss anemia
-Acute post-op respiratory insufficiency
Subjective
Procedure
Robotic assisted thoracic surgery [RATS], Decortication of the right lower and right middle lobes, Decortication of the chest wall as there was a thick pleural rind, Decortication of the diaphragmatic surface, Extensive the loculation and
adhesiolysis- Dr Alejandre-02/04/25
-
Date of Service: February 08, 2025
Objective Data
-
Lab Results
02/08/25 04:01
02/08/25 04:01
PT 21.4 Sec (11.4-14.6) H 02/08/25 04:01
INR 1.84 02/08/25 04:01
APTT 30.9 Sec (23.4-35.0) 02/04/25 14:16
Vital Signs
Vital Signs
Temp Pulse Resp BP Pulse Ox
97.7 F 49 18 108/54 96
02/08/25 03:48 02/08/25 03:00 02/08/25 03:48 02/08/25 00:22 02/08/25 03:48
CT Intake/Output/Weight
02/07/25 02/07/25 02/08/25
06:59 18:59 06:59
Intake Total 50 / 290 240 / 360 120 / 360
Output Total 1210 / 2675 440 / 2070 1630 / 2070
Balance -1160 / -2385 -200 / -1710 -1510 / -1710
SaO2: 96
Physical Exam
-
General: Awake and Oriented
Cardiovascular: Regular rate & rhythm and No Murmurs
Respiratory: Clear
Incision: Clean, Dry and Intact
Extremities: No Edema
Data Reviewed
-
Lab Results: Results Reviewed
Medications: Active Meds Reviewed
Chest X-Ray: Report Reviewed
ECG: Report Reviewed, Image Reviewed and Discussed w/ Cardiology
[2025-02-08 07:57] VITALS: BP 115/68
--- NOTE | 2025-02-08 08:00 | PTCARENOTE ---
Received patient for 7a-7p shift. Pt AAOx3, without complaints, OOB in chair. VSS, HR 40s- CTPA aware, POX 100% room air. SR with Ist deg HB and BBB on potline monitor. CTx2 connected to wall suction, air leak with tidaling, unchanged from previous,
small amount of crepitus above insertion site.
Patient denies pain at this time. Blood glucose 158, 1 unit novolog administered. Medications administered as ordered. Instructed patient to call for assistance prior to ambulation. Patient verbalized understanding, call xiao in reach. Will
continue to monitor.
[2025-02-08 08:03] LABS: Glucose - Point of Care 158 mg/dl (70-99)
[2025-02-08] MEDS: NOVOLOG FLEXPEN-MODERATE RESISTANCE 1 UNITS SC (08:07)
[2025-02-08] MEDS: MUCINEX 1200 MG PO ×2 (08:08→20:32)
[2025-02-08] MEDS: BUMEX 2 MG PO (08:08)
[2025-02-08] MEDS: THERAGRAN 1 TABLET PO (08:08)
[2025-02-08] MEDS: JANUVIA 100 MG PO (08:09)
[2025-02-08] MEDS: PLAVIX 75 MG PO (08:09)
[2025-02-08] MEDS: LIDOCAINE 4% PATCH 1 PATCH TOPICAL (08:09)
[2025-02-08] MEDS: NEURONTIN 100 MG PO ×3 (08:09→22:37)
[2025-02-08] MEDS: COLACE 100 MG PO ×2 (08:09→20:32)
[2025-02-08] MEDS: FLOMAX 0.4 MG PO (08:09)
[2025-02-08] MEDS: KCL 40 MEQ PO (08:12)
[2025-02-08 11:32] VITALS: BP 136/73
[2025-02-08] MEDS: PACERONE 200 MG PO (11:35)
[2025-02-08] MEDS: TOPROL XL 25 MG PO (11:37)
[2025-02-08] MEDS: HYDROPHOR 1 APPLIC TOPICAL (11:38)
[2025-02-08 11:49] LABS: Glucose - Point of Care 305 mg/dl (70-99)
[2025-02-08 11:49] LABS: Glucose - Point of Care 267 mg/dl (70-99)
[2025-02-08] MEDS: NOVOLOG FLEXPEN-MODERATE RESISTANCE 3 UNITS SC (11:50)
--- NOTE | 2025-02-08 12:39 | PTCARENOTE ---
Patient reassessed, VSS, SB with 1st deg hb on ekg monitor tech. Accucheck 267-5 units Novolog ordered per sliding scale. Pt request 3 units per his home regimen, [address] dressing changed, Serosanguineous drainage. Pt had BM x2,
tolerating po intake, voiding without issues. Denies pain at this time. Will continue to monitor.
[2025-02-08 15:18] VITALS: BP 117/58
[2025-02-08 16:19] LABS: Glucose - Point of Care 217 mg/dl (70-99)
[2025-02-08] MEDS: ZETIA 10 MG PO (16:19)
[2025-02-08] MEDS: LIPITOR 40 MG PO (16:19)
[2025-02-08] MEDS: VITAMIN D3 (cholecalciferol) 25 MCG PO (16:20)
[2025-02-08] MEDS: NOVOLOG FLEXPEN-MODERATE RESISTANCE 300 UNITS SC (16:21)
[2025-02-08] MEDS: COUMADIN 5 MG PO (17:26)
--- NOTE | 2025-02-08 18:30 | PTCARENOTE ---
VSS, patient c/o 5/[address] insertion site, Oxycodone administered as ordered. Medications administered as ordered. INR 1.84- Coumadin 5mg given. CT maintained to wall suction. Will continue to monitor.
[2025-02-08 20:30] VITALS: BP 111/59
[2025-02-08] MEDS: REMOVE LIDOCAINE PATCH 1 PATCH REMOVE (20:32)
--- NOTE | 2025-02-08 21:00 | PTCARENOTE ---
Assumed care of pt from dayshift RN. Walking rounds completed. Pt AAOx3. Sinus maribel w/ 1st degree AVB & BBB on the tele monitor. HR 40-50s. BP stable. Trace B/L LE edema. DP pulses weak on palpation. B/L radial pulses palpable. Pt 97% on RA.
Pleural CT A (#24) to -20 suction w/ +1 intermittent air-leak and tidaling present. Pleural CT B (#28) to -20 suction intact - no airleak or tidaling noted. Deep breathing and IS encouraged. Right lung sounds diminished throughout. Abdomen
nontender. +BSx4. Pt voiding w/o issue. Right lateral puncture sites approximated and [employer]. Pt w/ healing pressure sore on bottom covered w/ foam dressing intact. Pt turning and repositioning himself appropriately. PIV x2 intact. See worklist for
full nursing assessment and interventions. Call xiao within reach.
[2025-02-08 22:37] LABS: Glucose - Point of Care 144 mg/dl (70-99)
[2025-02-08] MEDS: DESYREL 50 MG PO (22:37)
[2025-02-08] MEDS: LANTUS 0.19 UNITS SC (22:37)
[2025-02-09] VITALS (15 sets, daily range): BP systolic 102–151; BP diastolic 51–79; PULSE 56–57; O2SAT 98–99; BMI 26.3
--- NOTE | 2025-02-09 00:38 | PTCARENOTE ---
Pt reassessed. Remains sinus maribel on the tele monitor. HR high 40s-50s. BP stable. Pt 97% on RA. CTx2 intact. Chamber changed for CT B. +1 intermittent air leak in pleural CT A (#24). +1 intermittent air leak in pleural CT B (#28) when patient
coughs or talks. Pt voiding w/o issue. No c/o pain. Pt repositioned in bed. Call xiao within reach.
[2025-02-09 03:53] LABS: Hematocrit 29.3 % (39.0-52.0); Hemoglobin 9.5 g/dL (13.0-18.0); Mean Corp Hgb Conc. 32.4 g/dL (33.0-37.0); Mean Corpuscular Volume 83.2 fL (80.0-94.0); Platelet Count 230 10^3/uL (130-400); Red Cell Dist. Width 17.8 % (11.5-14.5)
--- NOTE | 2025-02-09 03:57 | PTCARENOTE ---
Pt reassessed. Pt remains sinus maribel w/ 1st degree AVB and BBB on the tele monitor. HR 40-50s. BP stable. Pt is 97-99% on RA. Pleural CTx2 assessment unchanged. +[address] A + B. Dressing intact. All surgical sites stable. Labs
drawn and sent. No c/o pain at this time. Call xiao within reach.
[2025-02-09 04:03] LABS: INR 1.86; PT 21.6 Sec (11.4-14.6)
[2025-02-09 04:17] LABS: Blood Urea Nitrogen 40 mg/dl (9-20); Calcium 8.6 mg/dl (8.4-10.2); Carbon Dioxide 27 mmol/L (22-30); Chloride 108 mmol/L (98-107); Estimated Creatinine Clearance 70 ml/min; Glucose 120 mg/dl (70-99); Magnesium 1.9 mg/dl (1.6-2.3); Potassium 3.7 mmol/L (3.5-5.1); Sodium 138 mmol/L (135-145); eGFR > 60.00
--- NOTE | 2025-02-09 05:34 | W.PN.CT ---
Today's Communication / Plan
-
POD #5
-s/p 5 mg warfarin yesterday, INR 1.84->1.86 today
-CTs-pleural A/#24 60/90 cc out in 12/24 hrs, pleural B/#28 80/200cc out in 12/24 hrs, both to -20 suction, still remains with + 1 intermittent air leak (less frequent than yesterday) in pleural A/#24
-Daily PCXR
-Continue Flomax 2/2 BPH
-OOB to chair
-Cont Lipitor 40, Zetia 10, Amio 200 daily, Bumex 2 mg daily, Toprol XL 25 daily, Plavix 75
-Cont current SC and PO DM med regimen
Assessment / Plan
-
Robotic assisted thoracic surgery [RATS], Decortication of the right lower and right middle lobes, Decortication of the chest wall as there was a thick pleural rind, Decortication of the diaphragmatic surface, Extensive the loculation and
adhesiolysis- Dr Alejandre-02/04/25-pod #5
1. 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
2. 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
3. Sacral decub
4. Hypertension
5. Hyperlipidemia
6. Recurrent right-sided pleural effusions
7. Diabetes (A1C 6.8)
8. Sinus bradycardia
- Acute postop bloodloss anemia
-Acute post-op respiratory insufficiency
Subjective
Procedure
Robotic assisted thoracic surgery [RATS], Decortication of the right lower and right middle lobes, Decortication of the chest wall as there was a thick pleural rind, Decortication of the diaphragmatic surface, Extensive the loculation and
adhesiolysis- Dr Alejandre-02/04/25
-
Date of Service: February 09, 2025
Objective Data
-
Lab Results
02/09/25 03:45
02/09/25 03:45
PT 21.6 Sec (11.4-14.6) H 02/09/25 03:45
INR 1.86 02/09/25 03:45
APTT 30.9 Sec (23.4-35.0) 02/04/25 14:16
Vital Signs
Vital Signs
Temp Pulse Resp BP Pulse Ox
97.9 F 51 18 119/58 98
02/09/25 03:37 02/09/25 04:00 02/09/25 03:37 02/09/25 03:37 02/09/25 04:00
CT Intake/Output/Weight
02/08/25 02/08/25 02/09/25
06:59 18:59 06:59
Intake Total 120 / 360 660 / 660
Output Total 1630 / 2070 1650 / 2140 490 / 2140
Balance -1510 / -1710 -990 / -1480 -490 / -1480
SaO2: 98
Physical Exam
-
General: Awake, Oriented and AOx3
Cardiovascular: Regular rate & rhythm and No Murmurs
Respiratory: Clear and Decreased Breath Sounds
Incision: Clean and Dry
Extremities: No Edema and No Erythema
Data Reviewed
-
Lab Results: Results Reviewed
Chest X-Ray: Report Reviewed and Image Reviewed
ECG: Report Reviewed
[2025-02-09] MEDS: TYLENOL 1000 MG PO ×3 (06:15→22:16)
[2025-02-09 07:02] LABS: Glucose - Point of Care 146 mg/dl (70-99)
[2025-02-09] MEDS: NOVOLOG FLEXPEN-MODERATE RESISTANCE SC (07:14)
[2025-02-09] MEDS: LIDOCAINE 4% PATCH 1 PATCH TOPICAL (08:57)
[2025-02-09] MEDS: TOPROL XL 25 MG PO (08:58)
[2025-02-09] MEDS: JANUVIA 100 MG PO (08:58)
[2025-02-09] MEDS: COLACE 100 MG PO ×2 (08:58→19:59)
[2025-02-09] MEDS: BUMEX 2 MG PO (08:58)
[2025-02-09] MEDS: THERAGRAN 1 TABLET PO (08:58)
[2025-02-09] MEDS: FLOMAX 0.4 MG PO (08:58)
[2025-02-09] MEDS: MUCINEX 1200 MG PO ×2 (08:58→19:58)
[2025-02-09] MEDS: ROXICODONE 2.5 MG PO (08:58)
[2025-02-09] MEDS: PACERONE 200 MG PO (08:58)
[2025-02-09] MEDS: KCL 40 MEQ PO (08:58)
[2025-02-09] MEDS: PLAVIX 75 MG PO (08:58)
[2025-02-09] MEDS: HYDROPHOR 1 APPLIC TOPICAL (08:59)
[2025-02-09] MEDS: NEURONTIN 100 MG PO ×3 (08:59→22:17)
--- NOTE | 2025-02-09 09:00 | PTCARENOTE ---
Resumed care of patient. Pt assessed while he was sitting in the chair. Pt alert and oriented x4. Rates right sided chest tube pain 3/10-see MAR. Denies nausea, shortness of breath. MAYES with equal strength. SB with 1st degree AVB and BBB with rates
in the 40s-50s. BP 114/51. +click. Bilateral radial pulses palpable. Bilateral DP pulses weakly palpable. +1 ankle edema. POX 98% on RA. Left lung diminished in the base. Right lung diminished in the bases and slight coarseness. Occasional moist
nonproductive cough. IS encouraged-1000mL achieved. Per Dr. Alejandre CT x2 to water seal. Pleural A and Pleural B CT with +1 air leak with cough draining serosanguineous fluid, output WNL. Abdomen soft, round, nontender. +BS. BM yesterday. Pt due to
void for this RN, reports no issues. Right leg healing incision approximated, aquaphor applied. Healing sacral PI covered, CDI. Right lateral puncture sites approximated, ADELIA. Chest tube dressing CDI. Right forearm 18g PIV and left wrist 20g PIV
intact. See MAR for medication administration. See worklist for complete nursing assessment. Plan of care reviewed and pt in agreement.
--- NOTE | 2025-02-09 10:39 | CM ---
Reviewed chart. Met with and Mrs. Benavidez to review discharge plans. He states he feels well and ambulated in the hallway today. We reviewed resumption of [facility] when ready for discharge. He is agreeable to [facility]. Prior to admission he resides with his spouse in a two story home with two steps to enter. He has a full flight of steps to get to bedroom/full bathroom. He has a powder room on the first floor. Prior to admission he was independent with
[id number] in the home and uses a single point cane in the community. He is independent with adls.He has been in [facility]. at [facility] in the past and he has had outpatient therapy. He is current with [facility]. Medical work-up
in progress. The discharge plan is to return home with hie spouse and resumption of [facility] when medically stable.
[2025-02-09 12:11] LABS: Glucose - Point of Care 163 mg/dl (70-99)
[2025-02-09] MEDS: NOVOLOG FLEXPEN-MODERATE RESISTANCE 1 UNITS SC (12:19)
--- NOTE | 2025-02-09 13:00 | PTCARENOTE ---
Pt reassessed. Ambulating in the room with RW and 1 assist. SB with 1st degree AVB and BBB with rates in the 40s-50s. BP 130/79. POX 98% on RA. CT with intermittent +1 air leak and tidaling. Output WNL. +BM. Pt voiding clear yellow urine in the
urinal & toilet, reports no issues. No other acute changes.
--- NOTE | 2025-02-09 16:15 | PTCARENOTE ---
Pt reassessed. No acute changes. Pt ambulated in the gibson with RW and OT. Pt states he felt more short of breath than he did ambulating earlier in the day. SB with 1st degree AVB and BBB. POX 98% on RA. CT output WNL. No other acute changes.
[2025-02-09] MEDS: NOVOLOG FLEXPEN-MODERATE RESISTANCE 3 UNITS SC (16:20)
[2025-02-09 16:23] LABS: Glucose - Point of Care 219 mg/dl (70-99)
[2025-02-09] MEDS: COUMADIN 5 MG PO (18:08)
[2025-02-09] MEDS: ZETIA 10 MG PO (18:08)
[2025-02-09] MEDS: LIPITOR 40 MG PO (18:08)
[2025-02-09] MEDS: VITAMIN D3 (cholecalciferol) 25 MCG PO (18:09)
[2025-02-09] MEDS: REMOVE LIDOCAINE PATCH 1 PATCH REMOVE (20:00)
--- NOTE | 2025-02-09 21:00 | PTCARENOTE ---
Assumed care of pt from dayshift RN. Walking rounds completed. Pt AAOx3. Pt is sinus maribel w/ 1st degree AVB and BBB on the tele monitor. HR 50s. Click present. BP stable. Bilateral radial pulses palpable. Bilateral DP pulses weak on palpation. +1
B/L ankle edema. Pt on RA. POX 98%. Left lung diminished in the base. Right lung diminished in the bases and coarse. Occasional moist cough. Deep breathing and IS encouraged. Pleural CT x2 to water seal. Pleural CT A w/ intermittent +1 air-leak and
tidaling present - more apparent when pt coughs. Pleural CT B w/ no air-leak or tidaling at this time. Output serosanguineous. Abdomen nontender. +BSx4. Pt voiding w/o issue. All surgical sites stable. PIVx2 intact. Pt repositioned in bed. See
worklist for full nursing assessment and interventions. Call xiao within reach.
[2025-02-09] MEDS: DESYREL 50 MG PO (22:16)
[2025-02-09] MEDS: LANTUS 0.19 UNITS SC (22:17)
[2025-02-09 22:18] LABS: Glucose - Point of Care 143 mg/dl (70-99)
[2025-02-10] VITALS (10 sets, daily range): BP systolic 101–154; BP diastolic 52–71; PULSE 57–59; O2SAT 97; BMI 26.5
--- NOTE | 2025-02-10 00:27 | W.PN.CT ---
Today's Communication / Plan
-
Plan:
-No major issues overnight
-Chest tubes were placed to water seal yesterday, 02/09/25, no air leak in CT #28 'B,' air leak only with cough in CT #24 'A'. Drainage: CT 'B' /110; CT 'A' 11/28
-CXR this AM shows probable loculated small right basilar pneumothorax without significant SQ emphysema on my review, f/u official report
-Will consider clamping chest tube with f/u cxr and possible d/c of chest tube today if cxr without significant ptx or SQ emphysema
-On Coumadin for mechanical AVR, received 5mg last night for INR 1.86; INR 2.06 today
-Avoid NSAIDs for pain
-Encourage use of IS
-OOB into chair/Ambulate
-Home later today vs tomorrow
Assessment / Plan
-
Robotic assisted thoracic surgery [RATS], Decortication of the right lower and right middle lobes, Decortication of the chest wall as there was a thick pleural rind, Decortication of the diaphragmatic surface, Extensive the loculation and
adhesiolysis- Dr Alejandre-02/04/25-pod #6
1. 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
2. 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
3. Sacral decub
4. Hypertension
5. Hyperlipidemia
6. Recurrent right-sided pleural effusions
7. Diabetes (A1C 6.8)
8. Sinus bradycardia
-Acute postop blood loss anemia
-Acute post-op respiratory insufficiency
-Acute postop right basilar pneumothorax
Discussed patient care with: Nursing, Respiratory Therapy, Pharmacy and Care Team
Subjective
Procedure
Robotic assisted thoracic surgery [RATS], Decortication of the right lower and right middle lobes, Decortication of the chest wall as there was a thick pleural rind, Decortication of the diaphragmatic surface, Extensive the loculation and
adhesiolysis- Dr Alejandre-02/04/25
-
Date of Service: February 10, 2025
Pt c/o pleuritic chest pain, otherwise feels well. Ambulating halls with RW l
Objective Data
-
Lab Results
02/09/25 03:45
PT 21.6 Sec (11.4-14.6) H 02/09/25 03:45
INR 1.86 02/09/25 03:45
APTT 30.9 Sec (23.4-35.0) 02/04/25 14:16
Vital Signs
Vital Signs
Temp Pulse Resp BP Pulse Ox
98 F 52 16 108/59 97
02/10/25 00:19 02/10/25 00:19 02/10/25 00:19 02/10/25 00:19 02/10/25 00:19
CT Intake/Output/Weight
02/09/25 02/09/25 02/10/25
06:59 18:59 06:59
Intake Total 840 / 840
Output Total 860 / 2510 290 / 585 295 / 585
Balance -860 / -1850 550 / 255 -295 / 255
SaO2: 97 (RA)
Physical Exam
-
General: Awake, Oriented and AOx3
Cardiovascular: Regular rate & rhythm (sinus bradycardia in 50's), No Murmurs and Other (crisp mechanical click)
Respiratory: Decreased Breath Sounds (coarse @ right base, otherwise clear)
Sternum: Stable
Incision: Clean, Dry, Intact and Dressing Intact
Extremities: Other (+trace edema)
Data Reviewed
-
Lab Results: Results Reviewed
Medications: Active Meds Reviewed
Chest X-Ray: Report Reviewed and Image Reviewed
ECG: Report Reviewed and Image Reviewed
--- NOTE | 2025-02-10 00:33 | PTCARENOTE ---
No acute changes in assessment. Pt remains SB w/ 1st degree AVB and BBB. HR 50s. BP stable. Pt is 97% on RA. CT assessment unchanged. No airleak noted in CT B. Intermittent airleak and tidaling present in CT A more noticeable when pt coughs. No c/o
pain at this time. Call xiao within reach.
--- NOTE | 2025-02-10 04:00 | PTCARENOTE ---
No change in assessment. SB w/ 1st degree AVB and BBB on the tele monitor. HR 50s. BP 109/62. MAP 77. Pt 97% on RA. Pleural CT A & B assessment unchanged. +1 air-leak in CT A when the patient coughs. Tidaling present. No c/o pain at this time. Labs
drawn and sent. Call xiao within reach.
[2025-02-10 04:08] LABS: INR 2.06; PT 23.3 Sec (11.4-14.6)
[2025-02-10 04:25] LABS: Blood Urea Nitrogen 37 mg/dl (9-20); Calcium 8.3 mg/dl (8.4-10.2); Carbon Dioxide 25 mmol/L (22-30); Chloride 108 mmol/L (98-107); Estimated Creatinine Clearance 78 ml/min; Glucose 103 mg/dl (70-99); Magnesium 1.8 mg/dl (1.6-2.3); Potassium 4.0 mmol/L (3.5-5.1); Sodium 137 mmol/L (135-145); eGFR > 60.00
[2025-02-10] MEDS: TYLENOL 1000 MG PO ×3 (05:59→20:45)
[2025-02-10 07:26] LABS: Glucose - Point of Care 121 mg/dl (70-99)
[2025-02-10] MEDS: NOVOLOG FLEXPEN-MODERATE RESISTANCE SC (07:29)
[2025-02-10] MEDS: PLAVIX 75 MG PO (08:28)
[2025-02-10] MEDS: FLOMAX 0.4 MG PO (08:28)
[2025-02-10] MEDS: BUMEX 2 MG PO (08:28)
[2025-02-10] MEDS: MUCINEX 1200 MG PO ×2 (08:28→20:45)
[2025-02-10] MEDS: THERAGRAN 1 TABLET PO (08:28)
[2025-02-10] MEDS: COLACE 100 MG PO ×2 (08:28→20:45)
[2025-02-10] MEDS: TOPROL XL 25 MG PO (08:28)
[2025-02-10] MEDS: PACERONE 200 MG PO (08:29)
[2025-02-10] MEDS: NEURONTIN 100 MG PO ×3 (08:29→20:45)
[2025-02-10] MEDS: JANUVIA 100 MG PO (08:29)
[2025-02-10] MEDS: MAGNESIUM OXIDE 500 MG PO (08:29)
[2025-02-10] MEDS: LIDOCAINE 4% PATCH TOPICAL (08:30)
[2025-02-10] MEDS: HYDROPHOR 1 APPLIC TOPICAL (08:31)
--- NOTE | 2025-02-10 09:00 | PTCARENOTE ---
Patient received at change of shift resting oob in chair, AAO X 3, states pain controlled at this time. SB via cm, SaO2 @ 96% on RA. R lateral chest tubes x 2 to H2O seal, no air leak noted to tube B, int leak noted to A. Chest tube B d/c'd by PA
Deric, TEJINDER Watkins @ bedside, patient tolerated well. All procedural sites stable. Patient updated to plan of care for remainder of shift, in agreement. See work list for full assessment and interventions performed.
--- NOTE | 2025-02-10 09:09 | W.PN.UPDATE ---
Update Note
Progress Note Update
CDI Inquiry: Patient with acute post-op respiratory insufficiency s/p R RATS with decortication and pleurodesis.
[2025-02-10] MEDS: NOVOLOG FLEXPEN-MODERATE RESISTANCE 1 UNITS SC ×2 (11:50→17:25)
[2025-02-10 11:53] LABS: Glucose - Point of Care 170 mg/dl (70-99)
--- NOTE | 2025-02-10 11:54 | PTCARENOTE ---
VS obtained, assessment stable. Patient resting comfortably oob in chair, family at bedside. Finishing lunch.
--- NOTE | 2025-02-10 12:21 | CM ---
Reviewed chart. Met with and Mrs. Benavidez to review discharge plans. He states he is feeling well and may go home with a chest tube. Awaiting final decision from medical team. Reviewed [facility] with [facility]. Spoke with
[facility], they can not manage a chest tube that is not a Pleux Chest tube. Await decision on chest tube.
--- NOTE | 2025-02-10 16:00 | PTCARENOTE ---
VS obtained, assessment stable. Patient standby assist to ambulate gibson w/rolling walker, approximately 200 feet - tolerated well. Settled to chair, perusing menu for dinner. Pain currently under control.
[2025-02-10 17:24] LABS: Glucose - Point of Care 194 mg/dl (70-99)
[2025-02-10] MEDS: VITAMIN D3 (cholecalciferol) 25 MCG PO (17:26)
[2025-02-10] MEDS: LIPITOR 40 MG PO (17:26)
[2025-02-10] MEDS: COUMADIN 5 MG PO (17:26)
[2025-02-10] MEDS: ZETIA 10 MG PO (17:26)
--- NOTE | 2025-02-10 20:29 | PTCARENOTE ---
Patient received at change of shift from previous rn, AAO X 3, pt c/o pain at CT site. SB via tele monitor HR 50s., SaO2 @ 96% on RA. R lateral chest tube to heimlich valve. lungs diminished and coarse @ R base. productive cough present voiding
clear yellow urine in urinal. +bs, All procedural sites stable. PIV x2 intact. plan of care discussed questions encouraged, call xiao within reach
[2025-02-10] MEDS: REMOVE LIDOCAINE PATCH REMOVE (20:47)
[2025-02-10] MEDS: DESYREL 50 MG PO (22:15)
[2025-02-10 22:16] LABS: Glucose - Point of Care 211 mg/dl (70-99)
[2025-02-10] MEDS: LANTUS 0.19 UNITS SC (22:19)
[2025-02-11] VITALS (7 sets, daily range): BP systolic 109–130; BP diastolic 54–69; PULSE 49; O2SAT 99; BMI 26.3
--- NOTE | 2025-02-11 00:27 | PTCARENOTE ---
pt resting comfortably in bed, VSS, Sinus maribel per tele monitor, assessment remains unchanged
--- NOTE | 2025-02-11 03:54 | W.PN.CT ---
Today's Communication / Plan
-
-pod #7
-no issues overnight, wants to go home
-R CT with Heimlich valve and bag w/ slits
-follow CXR
-on Coumadin for mechanical AVR (got 2.5, 5, 5, 5 mg). INR today 2.33
-ambulate
-possible d/c
Assessment / Plan
-
- s/p Robotic assisted thoracic surgery [RATS], Decortication of the right lower and right middle lobes, Decortication of the chest wall as there was a thick pleural rind, Decortication of the diaphragmatic surface, Extensive loculation and
adhesiolysis- Dr Alejandre-02/04/25-pod #7
1. 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
2. 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
3. Sacral decub
4. Hypertension
5. Hyperlipidemia
6. Recurrent right-sided pleural effusions
7. Diabetes (A1C 6.8)
8. Sinus bradycardia
-Acute postop blood loss anemia
-Acute post-op respiratory insufficiency
-Acute postop right basilar pneumothorax
Discussed patient care with: Nursing and Care Team
Subjective
Procedure
Robotic assisted thoracic surgery [RATS], Decortication of the right lower and right middle lobes, Decortication of the chest wall as there was a thick pleural rind, Decortication of the diaphragmatic surface, Extensive the loculation and
adhesiolysis- Dr Alejandre-02/04/25
-
Date of Service: February 11, 2025
Objective Data
-
Lab Results
02/09/25 03:45
02/10/25 03:42
PT 23.3 Sec (11.4-14.6) H 02/10/25 03:42
INR 2.06 02/10/25 03:42
APTT 30.9 Sec (23.4-35.0) 02/04/25 14:16
Vital Signs
Vital Signs
Temp Pulse Resp BP Pulse Ox
98.6 F 46 16 101/52 98
02/11/25 00:00 02/11/25 00:00 02/11/25 00:00 02/10/25 23:14 02/11/25 00:00
CT Intake/Output/Weight
02/10/25 02/10/25 02/11/25
06:59 18:59 06:59
Intake Total 480 / 480
Output Total 350 / 640 360 / 660 300 / 660
Balance -350 / 200 120 / -180 -300 / -180
SaO2: 98
Physical Exam
-
General: Awake and AOx3
Cardiovascular: Regular rate & rhythm, No Murmurs and No Rub
Incision: Clean, Dry and Dressing Intact
Extremities: Other (trace edema b/l)
Abdomen: soft, nontender, nondistended
Data Reviewed
-
Lab Results: Results Reviewed
Medications: Active Meds Reviewed
Chest X-Ray: Report Reviewed and Image Reviewed
ECG: Report Reviewed and Image Reviewed
--- NOTE | 2025-02-11 04:36 | PTCARENOTE ---
AM labs obtained. VSS, Sinus maribel per tele monitor. assessment unchanged
[2025-02-11 04:47] LABS: INR 2.33; PT 25.6 Sec (11.4-14.6)
[2025-02-11] MEDS: TYLENOL 1000 MG PO (06:10)
[2025-02-11 07:52] LABS: Glucose - Point of Care 126 mg/dl (70-99)
[2025-02-11] MEDS: LIDOCAINE 4% PATCH 1 PATCH TOPICAL (07:53)
[2025-02-11] MEDS: NOVOLOG FLEXPEN-MODERATE RESISTANCE SC (07:53)
[2025-02-11] MEDS: PACERONE 200 MG PO (07:54)
[2025-02-11] MEDS: TOPROL XL 25 MG PO (07:54)
[2025-02-11] MEDS: PLAVIX 75 MG PO (07:54)
[2025-02-11] MEDS: MUCINEX 1200 MG PO (07:54)
[2025-02-11] MEDS: COLACE 100 MG PO (07:54)
[2025-02-11] MEDS: BUMEX 2 MG PO (07:54)
[2025-02-11] MEDS: JANUVIA 100 MG PO (07:54)
[2025-02-11] MEDS: FLOMAX 0.4 MG PO (07:54)
[2025-02-11] MEDS: NEURONTIN 100 MG PO (07:54)
[2025-02-11] MEDS: THERAGRAN 1 TABLET PO (07:54)
[2025-02-11] MEDS: HYDROPHOR 1 APPLIC TOPICAL (07:55)
--- NOTE | 2025-02-11 08:00 | PTCARENOTE ---
Resumed care of patient. Walking rounds completed. Pt assessed while he was sitting in the chair. Pt alert and oriented x4. Pt c/o discomfort at chest tube site, refuses additional pain meds. Denies nausea and shortness of breath. MAYES with equal
strength. Ambulates with RW in the halls. Able to stand independently. SB with 1st degree AVB and BBB with rates in the 40s. BP 109/54. +click. Bilateral radial pulses palpable. bilateral DP pulses weakly palpable. Bilateral ankle edema +1. POX 97%
on RA. Right lung diminished in the base. IS encouraged-1000ml achieved. Occasional productive cough with krishnamurthy sputum. Right pleural chest tube to heimlich valve draining serosanguineous fluid. No crepitus noted. Abdomen soft, round, nontender. +BS.
+BM yesterday. Tolerating diet. Pt voiding clear yellow urine in the urinal, denies issues. Chest tube site CDI. Right lateral side/back puncture sites approximated with skin glue, [employer]. Right lateral chest skin tear ADELIA. Old right leg incision
healed. Sacral healing PI with foam intact. PIVx2 intact. See MAR for medication administration. See worklist for complete nursing assessment. Plan of care reviewed and patient in agreement.
--- NOTE | 2025-02-11 10:56 | W.DCSUMMARY ---
Discharge Summary
Discharge Data
Date of Admission: 02/02/25
Date of Discharge: 02/11/25
Total time spent discharging patient (in min): 45
-
Pending Results: No
Hospital Course
Primary care physician:
Dr. Kyrie Asher MD.
Outpatient fermenter wine:
Dr. Greg Aviles MD.
Inpatient consultants:
Animal Care Giver-DR. Antoine
Wound ostomy consult
Procedures:
1. Robotic assisted thoracic surgery -02/04/25
2. Decortication of right lower lobe and right middle lobes
3. Decortication of chest wall due to thick pleural rind
4. Decortication of diaphragmatic surface
Primary Diagnosis:
1. 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
2. History of open heart surgery x 2
3. Protracted hospital stay in ICU length of stay
4. Sacral decubitus ulcer
5. Hypertension
6. Hyperlipidemia
7. Coronary artery disease with emergent bypass.
8. Recurrent right-sided pleural effusions.
9. Entrapped right lung with respiratory insufficiency.
10. 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
11. Obstructive sleep apnea
12. AVR/CABG 2008
13. PCI 2024 complicated by spiral dissection of the [place] subsequent redo CABG 08/2024
Secondary Diagnoses:
1. 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
2. History of open heart surgery x 2
3. Protracted hospital stay in ICU length of stay
4. Sacral decubitus ulcer
5. Hypertension
6. Hyperlipidemia
7. Coronary artery disease with emergent bypass.
8. Recurrent right-sided pleural effusions.
9. Entrapped right lung with respiratory insufficiency.
10. 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
11. Obstructive sleep apnea
12. AVR/CABG 2008
13. PCI 2024 complicated by spiral dissection of the [place] subsequent redo CABG 08/2024
HPI:
Patient is a 74-year-old male with multiple comorbidities including relatively recent emergent redo sternotomy and redo coronary artery bypass grafting status post [place] graft dissection. He had a protracted ICU length of stay secondary to an RV
injury and multiple blood product transfusions. He has since recovered from that however, he has had recurrent right-sided pleural effusions resulting in multiple thoracentesis. More recently he had a right-sided pleural drain and a CT scan the
following day which demonstrated reaccumulation almost immediately. There was a thick rind overlying the right lower lobe and right middle lobes as well as the chest wall accounting for his failed obliteration of the space. He was referred to
Dr. Alejandre for consideration of decortication. Given his multiple comorbidities including his chronic Coumadin use for his mechanical aortic valve he was preadmitted for heparin bridging and medical optimization. Plan was to approach the
decortication through robotic assisted surgery. Patient agreed, and consent was signed and obtained.
Hospital course:
Patient presented to [facility] electively as an outpatient for heparin bridge due to mechanical aortic valve as described above. He was admitted on 02/02/2025, INR was 2.29 and last dose of Plavix was . Patient's last dose of
Coumadin was 01/31/2025. He remained on heparin drip and his INR was allowed to drift down. On prior to surgery patient was transfused 1 unit of FFPFor an INR of 1.81. He was taken to the operating theater later that afternoon to undergo
the surgery described above.
Patient tolerated the procedure well. Patient was left intubated for positive and expiratory pressure to expand his right lung and aid in draining his right chest. Patient had a persistent air leak in his chest tube and remained to -20 cm of low
wall suction.He was successfully extubated at 2320 on postoperative day 0.
On postoperative day #1 Plavix 75 mg was resumed Coumadin 2.5 mg was restarted and PT OT was consulted. Chest tube remained to -20 cm of low wall suction with +1 persistent airleak.On postoperative day #2 INR was 1.9 and he was given another 2.5 mg
of Coumadin. Over the next subsequent days the patient's care revolved around his chest tube management.
On postoperative day 3 patient's airleak continued to +1 intermittent. Chest tube was kept in place to -20 cm of low wall suction and Coumadin was reordered 2.5 mg for an INR of 1.95
On postoperative day #5 patient's airleak was improving. Chest tube was placed to waterseal and Pleur-evac was changed. INR was 1.86 and he was given 5 mg of Coumadin.
On postoperative day #6 patient was INR was 2.06 and he received another 5 mg of Coumadin. Patient's apical chest tube #28 Austrian was removed at the bedside without issues. His 24 Austrian Juan chest tube was transitioned to Heimlich valve. Chest
x-ray remained stable after chest tube was placed to Heimlich valve. Discharge planning was underway.
On postoperative day #7 patient's chest x-ray remained stable with no pneumothorax or significant pleural effusions. Patient was seen by attending physician on morning rounds and deemed an appropriate discharge candidate to home with chest tube
attached to Heimlich valve.
Patient will present to the office on 02/17/2025 at 1:00 for chest tube evaluation. He should have a PA and lateral chest x-ray prior to that appointment. MD Traci. Patient also takes Coumadin for mechanical aortic valve managed by
[facility] cardiology Patient is to contact the office of cardiology for dosing. He will take his normal dose of 5 mg daily except for Fridays and Saturdays which he takes 2.5 mg. He will check his INR on 02/12 with his home machine and the
visiting nurses to check his INR on 02/13 before the weekend. His next Coumadin dose will be this evening on 02/12/2020 5 in the evening, goal INR 2.0-3.0 in the evening.
In regards to the patient's chest tube. His chest tubes attached to a Heimlich valve and drainage bag. The dressing should be changed daily between the patient and the visiting nurse. He should empty his drainage bag at least once daily before
becomes full. Patient should also keep a log of this chest tube output. If any tubing or connection lines become detached, reattached immediately and notify CT surgery. Call CT surgery with any issues or concerns for present to the nearest
emergency department. He will be seen in the office on Friday 02/16 for chest tube evaluation. Please have a PA and lateral chest x-ray performed prior to that appointment.
Home medication changes:
Acetaminophen 650 mg p.o. every 4 hours as needed fever, mild pain
Oxycodone 2.5 mg p.o. every 6 hours as needed moderate postoperative pain
Discharge Plan
-
Patient Disposition: Home (Routine Discharge)
Discharge Diagnosis/Procedures: Right decortication and pleurodesis (02/04/25)
Diet: Low Cholesterol and Low Sodium
Activity: No strenuous activity
Driving Restrictions: No driving for 2 weeks
Bathing Restrictions: OK to Shower
Blood Work: PA/Lateral Chest X Ray to be done prior to your visit with Dr. Alejandre on 02/17/25
Others Tests: PT/INR Patient will check 02/12 with home INR. Have visiting nurse check on Tuesday 02/13 before weekend. Goal INR 2.0-3.0
Activity Restrictions/Additional Instructions:
Wound Care Instructions Right Leg- Apply Mineral oil daily and PRN
Sacrum- Clean with saline, apply small piece of lightly moistened collagen dressing (at bedside) and apply to wound base. Change daily.
Follow up at wound care center call for an appointment.
ACTIVITY:
-No strenuous activity: no heavy lifting, pushing, pulling anything over 15 pounds for one month
-continue to use stairs as tolerated
DRIVING RESTRICTIONS:
-No driving for one month or until approved by your surgeon
WOUND CARE:
-Shower daily. Use soap & water.
-No lotions, creams or powders on incision area.
DIET:
-continue a low fat/low cholesterol diet.
-IF you are diabetic, continue carb controlled diet.
Referrals:
CT Transitional Care Nurse [Outside] - in one to two days
[facility]Visiting Nurs [Outside]
Kyrie Asher MD [Family Provider, [facility]] - in four to six weeks
Referral Note: Please make an appointment in four to six weeks.
Jose Alejandre MD [Active, Cardiac Surgery] - 02/17/25 1:00 pm
Catia Mishra CRNP [Specified Professional Personl, Cardiac Surgery] - 02/25/25 1:00 pm
Additional Discharge Medication Instructions: Patient takes Coumadin for mechanical aortic valve managed by [facility] cardiology Dr. Traci MD.
Contact the office of cardiology for dosing.
Patient will take his normal dose of 5 mg daily except on Fridays and Saturdays which is 2.5
He will check his INR on 02/12 with his home machine. Visiting nurse should check his INR on 02/13 before the weekend
Your next dose of Coumadin will be Sunday02/12/2020 5 in the evening
Patient has a chest tube attached to Heimlich valve and drainage bag. Change dressing daily between patient and visiting nurse.
Empty drainage bag at least once daily and before it becomes full.
Keep a log of chest tube output.
If any tubing or connections become detached, reattach immediately and notify CT surgery
Call CT surgery with any issues or concerns or present to the nearest emergency department
You will be seen in the office on Friday 02/16 for chest tube evaluation. Please have PA and lateral chest x-ray performed prior to appointment
Prescriptions:
New
acetaminophen 325 mg Tablet
650 mg PO Q4HPRN PRN (Reason: MATHEW/ mild pain/ temp >/= 100.4F) Qty: 0 0RF
Rx Instructions:
Please purchase over the counter
oxycodone 5 mg Tablet
2.5 mg PO Q4HPRN PRN (Reason: mild pain) Qty: 10 0RF
Rx Instructions:
Take 1/2 pill for ongoing pain control. Attending Dr. Alejandre
Continued
cholecalciferol (vitamin D3) 1,000 UNITS tablet
1,000 units PO QPM
fluticasone propionate 50 mcg/actuation [place],Suspension
2 spray INTRANASAL BIDPRN PRN (Reason: allergies)
acetaminophen 500 mg Tablet
1,000 mg PO DAILYPRN PRN (Reason: mild pain)
insulin aspart U-100 100 unit/mL (3 mL) Insulin Pen
1 sliding scale dose SC DIRECTED
insulin glargine [Lantus Solostar U-100 Insulin] 100 unit/mL (3 mL) Insulin Pen
19 unit SC QPM
trazodone 50 mg tablet
50 - 100 mg PO HS
Patient Comments:
takes 1 and 1/2 tabs
warfarin [Jantoven] 5 mg tablet
0 mg PO QPM
Patient Comments:
2.5mg on 8 + 8/2
Rx Instructions:
dose varies on INR
metoprolol succinate 25 mg tablet extended release 24 hr
25 mg PO DAILY
atorvastatin 80 mg Tablet
40 mg PO QPM
nitroglycerin 0.4 mg Tablet, Sublingual
0.4 mg SUBLINGUAL Q5-15M PRN (Reason: chest pain)
Patient Comments:
not since last hospitalization
zpglilqghtkj-vktczmqq-lovizo Tablet
1 tab PO DAILY
docusate sodium 100 mg Capsule
100 mg PO BID 30 Days Qty: 60 0RF
Januvia 100 mg Tablet
100 mg PO DAILY 30 Days Qty: 30 0RF
amiodarone 200 mg Tablet
200 mg PO DAILY 30 Days Qty: 30 0RF
clopidogrel 75 mg Tablet
75 mg PO DAILY Qty: 30 0RF
tamsulosin 0.4 mg Capsule
0.4 mg PO DAILY 30 Days Qty: 30 0RF
ezetimibe [Zetia] 10 mg Tablet
10 mg PO QPM 30 Days Qty: 30 0RF
dapagliflozin propanediol 10 mg Tablet
10 mg PO DAILY 30 Days Qty: 30 0RF
bumetanide 2 mg Tablet
2 mg PO DAILY 30 Days Qty: 30 0RF
gabapentin 100 mg Capsule
100 mg PO TID 30 Days Qty: 90 0RF
Held
coenzyme Q10 200 mg Capsule
200 mg PO QPM
Hold Instructions: Discuss resuming with Dr. Alejandre at follow up.
Care Plan Goals
Care Plan Goals:
Problem: Readiness for enhanced knowledge related to diagnosis and treatment plan
Goal: Understand your diagnosis and treatment plan needs, including medications if applicable.
Instructions: Know your diagnosis, underlying causes and treatment plan options, including medications if applicable. Consult with your health care team to learn about your diagnosis and treatment plan, including medications if applicable.
Discharge Date and Time
Print Language: BELARUSIAN
--- NOTE | 2025-02-11 12:00 | W.[place]-PDMP ---
[place]-PDMP
-
Checked the [place]- Prescription Drug Monitoring Program website, no red flags identified; safe to proceed with prescription.
[2025-02-11 12:31] LABS: Glucose - Point of Care 156 mg/dl (70-99)
[2025-02-11] MEDS: NOVOLOG FLEXPEN-MODERATE RESISTANCE 1 UNITS SC (12:41)
--- NOTE | 2025-02-11 13:59 | PTCARENOTE ---
IV lines and tele monitor discontinued. Discharge instructions, medication list and follow up appointments reviewed w the pt and his . Care of CT reviewed w pt and . Emotional support provided and questions encouraged.
--- NOTE | 2025-02-11 14:14 | CM ---
Reviewed chart. Met with and Mrs. Benavidez to review discharge plans. The [facility]N was in for instructions for the chest tube management. Also updated [facility] intake with discharge date. He states he is feeling well and ambulated and did
the stairs today. Prior to admission he resides with his spouse in a two story home with two steps to enter. He has a full flight of steps to get to bedroom/full bathroom. He has a powder room on the first floor. He is agreeable to the [facility] and
the [facility]. Medical work-up in progress. The discharge plan is to return home with his spouse and a home visit by Mojgan BRUNO when medically stable.
== END 2025-02-11 14:01 | disposition home health service (06) | DRG 163 ==
LOC: CVICU 08:18
PROVIDERS: Nurse Practitioner; Physician Assistant Medical; ADMITTING PHYSICIAN Thoracic Surgery (Cardiothoracic Vascular Surgery); CONSULT PHYSICIAN Internal Medicine Critical Care Medicine; FAMILY PHYSICIAN Family Medicine
PROC: 0BNF4ZZ Release Right Lower Lung Lobe, Percutaneous Endoscopic Approach (ICD-10-PCS; 2025-02-04)
PROC: 0BNP4ZZ Release Left Pleura, Percutaneous Endoscopic Approach (ICD-10-PCS; 2025-02-04)
PROC: 0BNN4ZZ Release Right Pleura, Percutaneous Endoscopic Approach (ICD-10-PCS; 2025-02-04)
PROC: 8E0W4CZ Robotic Assisted Procedure of Trunk Region, Percutaneous Endoscopic Approach (ICD-10-PCS; 2025-02-04)
PROC: 0BNT4ZZ Release Diaphragm, Percutaneous Endoscopic Approach (ICD-10-PCS; 2025-02-04)
PROC: 0BND4ZZ Release Right Middle Lung Lobe, Percutaneous Endoscopic Approach (ICD-10-PCS; 2025-02-04)
PROC: 30233K1 Transfusion of Nonautologous Frozen Plasma into Peripheral Vein, Percutaneous Approach (ICD-10-PCS; 2025-02-04)
DX: J98.4 Other disorders of lung (principal); L89.154 Pressure ulcer of sacral region, stage 4; J94.8 Other specified pleural conditions; D62 Acute posthemorrhagic anemia; I11.0 Hypertensive heart disease with heart failure; I25.10 Atherosclerotic heart disease of native coronary artery without angina pectoris; J91.8 Pleural effusion in other conditions classified elsewhere; E11.36 Type 2 diabetes mellitus with diabetic cataract; M48.00 Spinal stenosis, site unspecified; R06.89 Other abnormalities of breathing; J95.811 Postprocedural pneumothorax; D64.9 Anemia, unspecified; E11.40 Type 2 diabetes mellitus with diabetic neuropathy, unspecified; I50.9 Heart failure, unspecified; Y83.8 Other surgical procedures as the cause of abnormal reaction of the patient, or of later complication, without mention of misadventure at the time of the procedure; Z79.01 Long term (current) use of anticoagulants; Z79.02 Long term (current) use of antithrombotics/antiplatelets; Z79.4 Long term (current) use of insulin; Z79.899 Other long term (current) drug therapy; Z82.49 Family history of ischemic heart disease and other diseases of the circulatory system; Z95.1 Presence of aortocoronary bypass graft; Z95.3 Presence of xenogenic heart valve
CPT/HCPCS: 32505; 36415; 71045; 80048; 80053; 81003; 81015; 82248; 82330; 82565; 82805; 82962; 83036; 83735; 84132; 84302; 84478; 84520; 85014; 85018; 85025; 85027; 85049; 85610; 85730; 86850; 86900; 86901; 86920; 87070; 88304; 93005; 94002; 97110; 97112; 97116; 97162; 97164; 97166; 97168; 97535; P9059

== ENCOUNTER 2025-02-15 16:57 | Inpatient (IN) | payer OTHER, SELFPAY ==
[2025-02-15] VITALS (11 sets, daily range): BP systolic 102–150; BP diastolic 52–90; BMI 26.7; BMI 26.1
[2025-02-15] MEDS: ROXICODONE 5 MG PO (12:14)
[2025-02-15 12:44] LABS: Hematocrit 33.9 % (39.0-52.0); Hemoglobin 11.0 g/dL (13.0-18.0); Mean Corp Hgb Conc. 32.4 g/dL (33.0-37.0); Mean Corpuscular Volume 83.1 fL (80.0-94.0); Nucleated Red Blood Cells % 0 % (-); Platelet Count 272 10^3/uL (130-400); Red Cell Dist. Width 17.6 % (11.5-14.5)
--- NOTE | 2025-02-15 12:45 | EDRN ---
Received patient on stretcher with c/o increased SOB and pain at right pleural drain site.+fever. Patient stated that the drainage has become more bloody in color. +redness at insertion site.
[2025-02-15 12:53] LABS: INR 2.46; PT 26.7 Sec (11.4-14.6)
--- NOTE | 2025-02-15 13:31 | ED.GENMED ---
History of Present Illness
General
Chief Complaint: Breathing Problem
Time Seen by Provider: 02/15/25 11:37
History of Present Illness
History of Present Illness:
74-year-old male with history of hyperlipidemia, diabetes, hypertension, CAD, anticoagulation with Coumadin presenting to the emergency department for shortness of breath. Patient is status post a RATS on 02/[address] Alejandre for entrapped right lower
lobe with recurrent effusions and respiratory failure. Patient discharged with thoracic drain in place. Notes that dressings have been changed daily and had previously been draining clear, however this morning it was draining bloody. Patient also
notes increased shortness of breath and had difficulty sleeping last night, unable to lie flat. Denies fever or cough. Denies chest pain. Denies additional acute medical complaints
Past History
Past History
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
ED Past Surgical History: Cardiac (CABG+Mechanical aortic valve replacement 2008) and Orthopedic
Social History
Tobacco: Non-smoker
Alcohol: None
Personal:
Living: with family
Employment: Employed
Family History
Family History: CAD
Phy Exam
Physical Exam
Physical Exam:
General: Well-appearing, no clinical signs of dehydration, nontoxic and in no acute distress
HEENT: protecting airway
Neck: appears supple
CV: Normal heart rate, regular rhythm
Resp: No accessory muscle use, no increased work of breathing, diminished air movement to right lower lung field. Right lower chest drain in place, grossly bloody drainage with minimal drainage in the bag
Abd: Soft and non-distended, no tenderness to palpation
Extremities: No deformities, no swelling, no erythema, pulses and sensation intact
Neuro: alert, no focal neurologic deficit
: deferred
Rectal: deferred
Psych: Normal affect
Skin: Intact
Scores
Heart Failure Risk
Heart Failure Risk Score: Not Applicable
Course
Orders/Labs/Results
Orders:
Orders
02/15/25 12:02
Oxycodone [Roxicodone] 5 mg PO NOW STA
CR Chest - 2 Views Urgent
Comment:
Reason For Exam: SOB, R-pleural cath draining blood
02/15/25 12:35
CMP [Comprehensive Metabolic Panel] Urgent
Complete Blood Count/With Diff Urgent
Prothrombin Time Urgent
02/15/25 13:19
CT Chest W/o Iv Contrast Urgent
Comment:
Reason For Exam: right pleural effusion, s/p cardiothoracic surgery
02/15/25 13:34
Electrocardiogram (*1) Urgent
EKG- Treatment ONCE
02/15/25 14:09
Lactic Acid Q4H
Comment: CANCEL 2nd LACTIC ACID IF 1st LACTIC ACID IS LESS THAN 2
Blood Culture Q30M
YE Source: Blood/Venous
Specimen Description:
02/15/25 14:12
Blood Culture Q30M
YE Source: Blood/Venous
Specimen Description:
02/15/25 14:44
Code Status As Directed
Resuscitation Status: Full Code
Acetaminophen [Tylenol] 650 mg PO Q4HPRN PRN
Bisacodyl [Dulcolax] 10 mg RECTAL [id number] PRN
Docusate W/Senna [Senokot-S] 1 tablet PO BIDPRN PRN
Mag Hydrox/Al Hydrox/Simeth [Maalox] 30 ml PO Q6HPRN PRN
Ondansetron Injectable [Zofran] 4 mg IV Q6HPRN PRN
Polyethylene Glycol Powder [Miralax] 17 grams PO DAILYPRN PRN
Activity As Directed
Activity Level: Ambulate
Intake/ Output As Directed
Frequency: q12h
Notify MD As Directed
Notify physician if: T>101F, HR <50 or >120; SBP<90 or >140
Vital Signs As Directed
Frequency: Per unit guidelines
O2 Therapy [RESP] Routine
Nasal Cannula Liter Flow: 2 LPM
Titrate/Wean O2 to maintain O2 sat greater than (%): 91
Wean Oxygen to Pre Admission Baseline Therapy-if applicable: Yes
Contact provider if nasal cannula O2 requirement > 6 liters: Yes
Pulse Ox/spot Check [RESP] Routine
Quantity: 1
Rx Incentive Spirometry [RESP] Routine
Frequency: q1h while awake
# of times per hour: 10
02/15/25 14:45
Pneumatic Compression Sleeves As Directed
Type: Knee high
DX Deep Vein Thrombosis Video Routine
02/15/25 14:50
Admit Patient As Directed
Co-Sign Provider:
Level of Care: Inpatient admission
Assign to:: IVU
Physician / Group: Jose Alejandre
Diagnosis: pleural effusion, possible chest tube obstruction
Reason for Hospitalization: pleural effusion, possible chest tube obstruction
Expected length of stay greater than two midnights?: Yes
ELOS- Estimated Length of Stay in days: 2
I certify the patient meets the requirements for IP care: Yes
PRN Pain Medication Management As Directed
May give lesser potent ordered pain med per pt: Yes
preference::
Protocol:: Medication orders for pain may be administered in a
manner that supports deferring to patient preference
when the pt is:
- Requesting an ordered lesser potent pain medication.
Least to most potent pain medications are defined
as: acetaminophen < NSAID < tramadol < opioids
(morphine, oxycodone, hydromorphone).
- Requesting a lesser dose of the same medication IF
ORDERED.
- Requesting a less intrusive route of administration
if both routes are prescribed by the provider (PO <
IV).
02/15/25 Dinner
Cholesterol Lowering
At Your Request: Full Participation
Cholesterol Lowering: Sodium, 2 Gram
1800 syd/15 CHO Diabetic
Flush (0.9% Sodium Chloride) [Flush (Nss)] See Dose Instructions IV PER PROTOCOL
02/15/25 15:39
fluticasone propionate 2 spray NASAL BIDPRN PRN
ipratropium bromide 2 spray NASAL Q8HPRN PRN
02/15/25 16:00
Insulin Aspart Pen [Novolog Flexpen] DOSE units SC DIRECTED
Oxycodone [Roxicodone] 5 mg PO Q4HPRN PRN
02/15/25 18:00
Atorvastatin [Lipitor] 40 mg PO QPM
Cholecalciferol (Vitamin D3) [VITAMIN D3 (cholecalciferol)] DOSE mcg PO QPM
Ezetimibe [Zetia] 10 mg PO QPM
insulin glargine [Lantus Solostar U-100 Insulin] 19 unit SC QPM
02/15/25 20:00
Docusate Sodium [Colace] 100 mg PO BID
02/15/25 22:00
Trazodone [Desyrel] 75 mg PO HS
02/16/25 06:00
Basic Metabolic Panel IN AM
Complete Blood Count/No Diff IN AM
INR [Prothrombin Time] IN AM
Magnesium IN AM
Weight As Directed
Frequency: Daily
02/16/25 08:00
Amiodarone [Pacerone] 200 mg PO DAILY
Dapagliflozin [Farxiga] 10 mg PO DAILY
Metoprolol Xl [Toprol Xl] 25 mg PO DAILY
Multivitamin [Theragran] 1 tablet PO DAILY
Sitagliptin Phosphate [Januvia] 100 mg PO DAILY
Tamsulosin [Flomax] 0.4 mg PO DAILY
bumetanide 2 mg PO DAILY
02/17/25 06:00
INR [Prothrombin Time] IN AM
02/18/25 06:00
INR [Prothrombin Time] IN AM
Abnormal Lab Results
02/15/25
12:35
WBC 17.1 H 10^3/uL
(4.8-10.8)
RBC 4.08 L 10^6/uL
(4.70-6.10)
Hgb 11.0 L g/dL
(13.0-18.0)
Hct 33.9 L %
(39.0-52.0)
MCHC 32.4 L g/dL
(33.0-37.0)
RDW 17.6 H %
(11.5-14.5)
Abs Immat Gran (auto) 0.1 H 10^3/uL
(0-0.05)
Absolute Neuts (auto) 14.7 H 10^3/uL
(1.4-6.5)
Absolute Lymphs (auto) 0.9 L 10^3/uL
(1.2-3.4)
Absolute Monos (auto) 1.4 H 10^3/uL
(0.1-0.6)
Neutrophils % 85.8 H %
(42.2-75.2)
Lymphocytes % 5.5 L %
(20.5-51.1)
PT 26.7 H Sec
(11.4-14.6)
BUN 30 H mg/dl
(9-20)
Glucose 200 H mg/dl
(70-99)
Alkaline Phosphatase 146 H U/L
(38-126)
02/15/25 12:35
02/15/25 12:35
Vital Signs
Initial and Last Documented VS:
Initial Vital Signs
Temp Pulse Resp BP Pulse Ox
99.1 F 61 16 150/90 97
02/15/25 11:03 08/17/25 11:03 02/15/25 11:03 02/15/25 11:03 02/15/25 11:03
Last Documented Vital Signs
Temp Pulse Resp BP Pulse Ox
99.1 F 63 32 126/69 95
02/15/25 11:03 02/15/25 14:30 02/15/25 14:30 02/15/25 14:00 02/15/25 14:30
MDM/Problems Addressed
MDM/Problems Addressed:
74-year-old male status post RATS on 02/04 for entrapped right lower lobe with recurrent effusions presenting for bloody drainage from thoracic drain and increased dyspnea. Vital signs on arrival significant for mild hypertension.
On exam patient is in no significant respiratory distress. Oxygenation is stable, however patient's thoracic drain is grossly bloody with minimal drainage in the bag. Concerned that the drain may be occluded, resulting in likely recurrent right
pleural effusion. Consistent with examination with diminished air movement to the right lower lung field. Plan for laboratory analysis, chest x-ray imaging, INR, cardiothoracic consultation.
13:30 - Labs show elevated WBC, which is new. Patient with a temperature of 99.1. Will add lactic acid and blood cultures. Otherwise hemoglobin stable and INR therapeutic. Chest x-ray shows recurrent right lower lobe pleural effusion. In
discussion with cardiothoracic surgery, recommend admission to their service with additional noncontrast CT. Will obtain
*Pulse Oximetry
SaO2: 97
Oxygen Mode of Delivery: Room air
Patient hypoxic: no
*Critical Care Note
Total Time (30-74mins, 75-104mins- exclusive of procedures): Not Applicable
ED Attending Note
-
Portions of this chart may have been created with voice recognition software.� Occasional wrong word or��sound alike� substitutions may have occurred due to the inherent limitations of voice recognition software.
Discharge Plan
Departure
Patient Disposition: Admit
Date of Disposition: 02/15/25
Time of Disposition: 13:36
Presentation/result/management discussed w/ accepting MD/DO: cardiothoracic surgery
Patient with high blood pressure during this ER visit?: Yes
Condition: Fair
Discharge Problem:
Recurrent right pleural effusion
Prescriptions:
No Action
cholecalciferol (vitamin D3) 1,000 UNITS tablet
1,000 units PO QPM
fluticasone propionate 50 mcg/actuation [place],Suspension
2 spray INTRANASAL BIDPRN PRN (Reason: allergies)
acetaminophen 500 mg Tablet
1,000 mg PO DAILYPRN PRN (Reason: mild pain)
insulin aspart U-100 100 unit/mL (3 mL) Insulin Pen
1 sliding scale dose SC DIRECTED
insulin glargine [Lantus Solostar U-100 Insulin] 100 unit/mL (3 mL) Insulin Pen
19 unit SC QPM
trazodone 50 mg tablet
75 mg PO HS
Patient Comments:
takes 1 and 1/2 tabs
warfarin [Jantoven] 5 mg tablet
5 mg PO SUMOTUWE@1800
metoprolol succinate 25 mg tablet extended release 24 hr
25 mg PO DAILY
atorvastatin 80 mg Tablet
40 mg PO QPM
nitroglycerin 0.4 mg Tablet, Sublingual
0.4 mg SUBLINGUAL Q5-15M PRN (Reason: chest pain)
oxycodone 5 mg Tablet
2.5 mg PO Q4HPRN PRN (Reason: mild pain) Qty: 10 0RF
Theragen Tablet
1 tab PO DAILY
warfarin 5 mg tablet
2.5 mg PO THFRSA@1800
ipratropium bromide 42 mcg (0.06 %) spray,non-aerosol
2 spray INTRANASAL Q8HPRN PRN (Reason: runny nose)
docusate sodium 100 mg Capsule
100 mg PO BID 30 Days Qty: 60 0RF
Januvia 100 mg Tablet
100 mg PO DAILY 30 Days Qty: 30 0RF
amiodarone 200 mg Tablet
200 mg PO DAILY 30 Days Qty: 30 0RF
clopidogrel 75 mg Tablet
75 mg PO DAILY Qty: 30 0RF
tamsulosin 0.4 mg Capsule
0.4 mg PO DAILY 30 Days Qty: 30 0RF
ezetimibe [Zetia] 10 mg Tablet
10 mg PO QPM 30 Days Qty: 30 0RF
dapagliflozin propanediol 10 mg Tablet
10 mg PO DAILY 30 Days Qty: 30 0RF
bumetanide 2 mg Tablet
2 mg PO DAILY 30 Days Qty: 30 0RF
gabapentin 100 mg Capsule
100 mg PO TID 30 Days Qty: 90 0RF
Referrals:
Kyrie Asher MD [Family Provider, Family Practice]
Interventions
Interventions:
*Risk Screen - Suicide Last Done: 02/15/25 11:03
*General Assessment Last Done: 02/15/25 12:15
*Neglect/Abuse Screening Last Done: 02/15/25 11:03
*ED- Fall Risk Assessment Last Done: 02/15/25 12:15
ED- Cardiac Assessment Last Done: 02/15/25 12:15
ED- Pulmonary Assessment Last Done: 02/15/25 12:15
Discharge Date and Time
Print Language: MALAWIAN
[2025-02-15 13:42] LABS: ALT (SGPT) 24 U/L (0-50); AST (SGOT) 28 U/L (17-59); Albumin 3.5 g/dl (3.5-5.0); Alkaline Phosphatase 146 U/L (38-126); Blood Urea Nitrogen 30 mg/dl (9-20); Calcium 8.7 mg/dl (8.4-10.2); Carbon Dioxide 24 mmol/L (22-30); Chloride 103 mmol/L (98-107); Estimated Creatinine Clearance 70 ml/min; Glucose 200 mg/dl (70-99); Potassium 3.7 mmol/L (3.5-5.1); Sodium 135 mmol/L (135-145); Total Protein 7.1 g/dl (6.3-8.2); eGFR > 60.00
--- NOTE | 2025-02-15 14:54 | HPS.HSE ---
Family Physician
-
Family Physician: Kyrie Asher
Chief Complaint
-
shortness of breath, increased drainage in chest tube
History of Present Illness
Corona Benavidez is a 74 year old male Known to CT surgery from prior AVR (On-X mechanical)/CABG in 2008 and redo CABG (08/2024) and recent robotic assisted right decortication and pleurodesis by Dr. Alejandre on 02/04/2025 for entrapped right lower lobe with
recurrent effusions and respiratory failure. Patient was discharged home on 02/11/2025 with right pleural chest tube to Heimlich valve and leg bag gravity drainage. Patient presents to [facility] ED on 02/15/25 for evaluation of shortness of breath with
inability to lie flat and increased bloody drainage and chest tube present since last evening. Afebrile. Denies fever, chest pain or cough.
Medical History
Past Medical History
Past Medical History: Reports Other
Additional Past Medical History:
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
Past Surgical History: Reports Other (mechanical AVR (On-X)/CABG 2008-chronic anticoagulation (Coumadin); PCI 2024 complicated by spiral dissection of the [place] subsequent redo CABG 08/2024; 02/04/25 RATS decortication of right lower lobe and right
middle lobes, decortication of chest wall due to thick pleura rind)
Social History
Tobacco: Non-smoker
Alcohol: Occasional
Drug: None
Personal:
Living: With Family
Employment: Retired
Family History
Family History: CAD
Allergies / Home Medications
Allergies reflects when Allergies were last updated in [facility].
Home Medications with original date entered in [facility]
Allergy/Medication List:
Allergies
Allergy/AdvReac Type Severity Reaction Status Date / Time
levofloxacin (From Levaquin) Allergy Mild muscle pain Verified 02/15/25 14:52
simvastatin (From Zocor) Allergy Mild MYALGIAS/leg Verified 02/15/25 14:52
cramping
rosuvastatin calcium (From Allergy Unknown Unknown Verified 02/15/25 14:52
Crestor)
Home Medications
�Medication �Instructions �Recorded
cholecalciferol (vitamin D3) 25 1,000 units PO QPM Supplement 08/26/18
mcg (1,000 unit) tablet
fluticasone propionate 50 2 spray intranasal BIDPRN PRN 04/18/24
mcg/actuation nasal allergies
spray,suspension
amiodarone 200 mg tablet 200 mg PO DAILY Arrhythmia 30 days 09/15/24
#30 tabs
bumetanide 2 mg tablet 2 mg PO DAILY Fluid 09/15/24
retention/Swelling 30 days #30 tabs
clopidogrel 75 mg tablet 75 mg PO DAILY Blood clot 09/15/24
prevention/tx/Afib #30 tabs
dapagliflozin propanediol 10 mg 10 mg PO DAILY Heart 09/15/24
tablet disease/condition 30 days #30 tabs
docusate sodium 100 mg capsule 100 mg PO BID Constipation 30 days 09/15/24
#60 caps
ezetimibe 10 mg tablet (Zetia) 10 mg PO QPM High cholesterol 30 09/15/24
days #30 tabs
gabapentin 100 mg capsule 100 mg PO TID Pain 30 days #90 caps 09/15/24
sitagliptin phosphate 100 mg 100 mg PO DAILY Diabetes 30 days 09/15/24
tablet (Januvia) #30 tabs
tamsulosin 0.4 mg capsule 0.4 mg PO DAILY Bladder/BPH 30 09/15/24
days #30 caps
acetaminophen 500 mg tablet 1,000 mg PO DAILYPRN PRN mild pain 11/16/24
insulin aspart U-100 100 unit/mL 1 sliding scale dose SC 11/16/24
(3 mL) subcutaneous pen DIRECTED Diabetes
insulin glargine 100 unit/mL (3 19 unit SC QPM Diabetes 11/16/24
mL) subcutaneous pen (Lantus
Solostar U-100 Insulin)
metoprolol succinate 25 mg 25 mg PO DAILY blood pressure 11/16/24
tablet,extended release 24 hr
trazodone 50 mg tablet 75 mg PO HS insomnia 11/16/24
warfarin 5 mg tablet (Jantoven) 5 mg PO SUMOTUWE@1800 Blood Clot 11/16/24
Prevention/Tx
atorvastatin 80 mg tablet 40 mg PO QPM High Cholesterol 01/21/25
nitroglycerin 0.4 mg sublingual 0.4 mg sublingual Q5-15M PRN chest 01/21/25
tablet pain
oxycodone 5 mg tablet 2.5 mg (1/2 x 5 mg) PO Q4HPRN PRN 02/11/25
mild pain #10 tabs
ipratropium bromide 42 mcg (0.06 2 spray intranasal Q8HPRN PRN 02/15/25
%) nasal spray runny nose
therapeutic multivitamin 1 tab PO DAILY 02/15/25
warfarin 5 mg tablet 2.5 mg PO THFRSA@1800 02/15/25
Review of Systems
-
History Source: Patient
A 12 point ROS was completed and negative except as noted: Yes
Physical Exam
Vital Signs
Vital Signs
Temp Pulse Resp BP Pulse Ox
99.1 F 63 32 126/69 95
02/15/25 11:03 02/15/25 14:30 02/15/25 14:30 02/15/25 14:00 02/15/25 14:30
Physical Exam
General: Well Developed, Well Nourished, No Apparent Distress and Conversant
HEENT: NormoCephalic, Anicteric, Moist mucous membranes, PERRLA and Neck Nontender
Respiratory: Decreased Breath Sounds (right base)
Cardiac: S1/S2, Regular Rhythm and Other (+ crisp prosthetic aortic click)
Breast: Deferred by me
GI: Soft, Non Tender, Non Distended and Normal Bowel Sounds
Rectal: Deferred by Provider
Genito-urinary: Deferred by me
Musculoskeletal: No Clubbing, No Cyanosis and No Edema
Skin: Warm, Dry and Other (R pleural chest tube with dark blood in tubing; skin at insertion site macerated with mild erythema, no purulent drainage)
Neuro: AO x 3, No Motor Deficits, Nonfocal/grossly intact and No Sensory Deficits
Hematologic/Lymphatic: No Lymphadenopathy
Psych: Calm and Intact Judgment/Insight
Laboratory Results
-
02/15/25 12:35
02/15/25 12:35
Laboratory Results
PT 26.7 Sec (11.4-14.6) H 02/15/25 12:35
INR 2.46 02/15/25 12:35
Lactic Acid 1.5 mmol/L (0.7-2.0) 02/15/25 14:09
Total Bilirubin 1.0 mg/dl (0.2-1.3) 02/15/25 12:35
AST 28 U/L (17-59) 02/15/25 12:35
ALT 24 U/L (0-50) 02/15/25 12:35
Alkaline Phosphatase 146 U/L (38-126) H 02/15/25 12:35
Data Reviewed
-
Diagnostic Radiology: Report Reviewed by me and Discussed with Physician
CT Scan: Report Reviewed by me and Discussed with Physician
Lab Data: Labs Reviewed by me and Discussed with Physician
Old Records: Reviewed
Impression/Plan
-
IMPRESSION: 74-year-old male with recent robotic assisted right decortication and pleurodesis for recurrent right pleural effusion, was readmitted for shortness of breath and recurrent right pleural effusion with concern for chest tube drain
obstruction
PLAN:
# Recurrent right pleural effusion (per CXR)/possible chest tube obstruction
- non contrast CT chest
- blood cultures x 2
- Dr Alejandre to review imaging to determine further intervention
# Hx mechanical AVR (On-X)/CABG (2008) with redo CABG (08/2024)
- continue Lipitor, Zetia, Toprol, Amiodarone (usual HR SB 50s on these meds), Bumex, Farxiga
- hold Plavix/Coumadin for possible right pleural intervention
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
- continue Lantus, Januvia, gabapentin
- cardiac, diabetic food tray
# BPH
- continue Flomax
# Insomnia
- continue Trazadone
[2025-02-15] MEDS: LIPITOR 40 MG PO (18:23)
[2025-02-15] MEDS: ZETIA 10 MG PO (18:23)
[2025-02-15] MEDS: VITAMIN D3 (cholecalciferol) 25 MCG PO (18:23)
[2025-02-15 19:41] LABS: Glucose - Point of Care 155 mg/dl (70-99)
[2025-02-15] MEDS: TYLENOL 650 MG PO (19:41)
[2025-02-15] MEDS: LANTUS 0.19 UNITS SC (19:42)
[2025-02-15] MEDS: COLACE 100 MG PO (21:12)
[2025-02-15] MEDS: DESYREL 75 MG PO (21:12)
[2025-02-15 22:42] LABS: Glucose - Point of Care 292 mg/dl (70-99)
--- NOTE | 2025-02-16 00:18 | PTCARENOTE ---
Received pt ~1999 from ED. AAOx3, VSS-- NSR on monitor. Chest tube in place with Heimlich valve and gravity bag on left leg. Pt denies SOB and pain @ this time. Discussed plan of care. Pt verbalizes understanding. Call xiao within reach.
[2025-02-16 03:01] VITALS: BP 124/67
[2025-02-16 03:33] LABS: Hematocrit 30.4 % (39.0-52.0); Hemoglobin 9.8 g/dL (13.0-18.0); Mean Corp Hgb Conc. 32.2 g/dL (33.0-37.0); Mean Corpuscular Volume 82.4 fL (80.0-94.0); Platelet Count 263 10^3/uL (130-400); Red Cell Dist. Width 17.2 % (11.5-14.5)
[2025-02-16 03:42] LABS: INR 2.22; PT 24.7 Sec (11.4-14.6)
[2025-02-16 04:33] LABS: Blood Urea Nitrogen 30 mg/dl (9-20); Calcium 8.7 mg/dl (8.4-10.2); Carbon Dioxide 23 mmol/L (22-30); Chloride 105 mmol/L (98-107); Estimated Creatinine Clearance 69 ml/min; Glucose 194 mg/dl (70-99); Magnesium 2.0 mg/dl (1.6-2.3); Potassium 3.5 mmol/L (3.5-5.1); Sodium 136 mmol/L (135-145); eGFR > 60.00
--- NOTE | 2025-02-16 05:46 | W.PN.CT ---
Today's Communication / Plan
-
Plan:
-Milked/stripped chest tube last night
-Heimlich valve intact and draining dark bloody pleural fluid, drained
-Coumadin and Plavix currently on hold, INR this AM is 2.22, was 2.46 yesterday
-CXR this AM shows right basilar opacification on my review, will consider chest tube to pleur-evac system, F/U official report
-Will cont. to closely monitor
Assessment / Plan
-
74 year old male Known to CT surgery from prior AVR (On-X mechanical)/CABG in 2008 and redo CABG (08/2024), and recent robotic assisted right decortication and pleurodesis by Dr. Alejandre on 02/04/2025 for entrapped right lower lobe with recurrent
effusions and respiratory failure. Patient was discharged home on 02/11/2025 with right pleural chest tube to Heimlich valve and leg bag gravity drainage. Patient presents to [facility] ED on 02/15/25 with c/o orthopnea and increased chest tube drainage
from clear to bloody. Of note, pt is on both Plavix and Coumadin, INR in ED was 2.46. Both cxr and chest CT obtained on 02/14 yielded (moderate) right pleural effusion.
- s/p Robotic assisted thoracic surgery [RATS], Decortication of the right lower and right middle lobes, Decortication of the chest wall as there was a thick pleural rind, Decortication of the diaphragmatic surface, Extensive loculation and
adhesiolysis- Dr Alejandre-02/04/25
1. 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
2. 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
3. Sacral decub
4. Hypertension
5. Hyperlipidemia
6. Recurrent right-sided pleural effusions
7. Diabetes (A1C 6.8)
8. Sinus bradycardia
-Acute postop blood loss anemia
-Acute post-op respiratory insufficiency
-Acute postop right basilar pneumothorax
Discussed patient care with: Cardiology, Nursing, Respiratory Therapy, Pharmacy and Care Team
Subjective
-
Date of Service: February 16, 2025
Pt offers no complaints, no issues overnight
Objective Data
-
Lab Results
02/16/25 03:16
02/16/25 03:16
PT 24.7 Sec (11.4-14.6) H 02/16/25 03:16
INR 2.22 02/16/25 03:16
Vital Signs
Vital Signs
Temp Pulse Resp BP Pulse Ox
98.7 F 59 16 124/67 97
02/16/25 03:24 02/16/25 03:15 02/16/25 03:24 02/16/25 03:01 02/16/25 03:24
CT Intake/Output/Weight
02/15/25 02/15/25 02/16/25
06:59 18:59 06:59
Output Total 250 / 250
Balance -250 / -250
SaO2: 97 (RA)
Physical Exam
-
General: Awake, Oriented and AOx3
Cardiovascular: Regular rate & rhythm, No Rub and No Gallop
Respiratory: Decreased Breath Sounds (on right)
Sternum: Stable
Incision: Clean, Dry, Intact and Dressing Intact
Extremities: Other (+trace edema)
Data Reviewed
-
Lab Results: Results Reviewed
Medications: Active Meds Reviewed
Chest X-Ray: Report Reviewed and Image Reviewed
ECG: Report Reviewed and Image Reviewed
--- NOTE | 2025-02-16 06:38 | PTCARENOTE ---
Pt called RN in ~0600 because he was feeling SOB again. RN sat pt up in bed, and assessed pt's 02 level-- 97-98% on room air. Informed Dionicio Guthrie ([place] [facility]). Assessed drain.
RN measured 100cc of sanguonous drainage from overnight.
[2025-02-16 06:56] VITALS: BMI 25.8
[2025-02-16 07:15] VITALS: BP 120/65
[2025-02-16 08:24] LABS: Glucose - Point of Care 177 mg/dl (70-99)
--- NOTE | 2025-02-16 09:00 | PTCARENOTE ---
Assumed care of patient. Walking rounds completed with previous RN. Pt assessed while he was lying in bed. Pt alert and oriented x4. Flat affect. MAYES with equal strength throughout. Assisted OOB to chair with 1 assist and cane. SR with 1st degree
AVB and BBB on tele with rates in the 50s-60s. +Click. BP 120/65. Bilateral radial pulses palpable. Bilateral DP pulses weakly palpable. Bilateral +1 ankle edema. POX 97% on RA. Left lung clear, right lung diminished with crackles. Occasional
nonproductive cough. Right pleural chest tube to pleuravac by Dr. Delatorre. Adjusted to -30suction by Dr. Alejandre. Stripped by Dr. Alejandre and draining dark red fluid. No air leaks, tidaling, crepitus noted. Abdomen soft, round, nontender. +BS. Last BM
yesterday. Voiding carlos urine, reports no issues. Right lateral old puncture sites approximated, [employer]. CT dressing changed by Dr. Delatorre this am. Old sacral PI covered. Wound care consult placed for orders. Right forearm 20g PIV intact. See MAR for
medication administration. See worklist for complete nursing assessment. Plan of care reviewed and patient in agreement.
[2025-02-16] MEDS: FLOMAX 0.4 MG PO (09:10)
[2025-02-16] MEDS: THERAGRAN 1 TABLET PO (09:10)
[2025-02-16] MEDS: FARXIGA 10 MG PO (09:10)
[2025-02-16] MEDS: BUMEX 2 MG PO (09:10)
[2025-02-16] MEDS: TOPROL XL 25 MG PO (09:10)
[2025-02-16] MEDS: PACERONE 200 MG PO (09:10)
[2025-02-16] MEDS: JANUVIA 100 MG PO (09:10)
[2025-02-16] MEDS: COLACE 100 MG PO ×2 (09:11→20:05)
--- NOTE | 2025-02-16 09:26 | VNURNOTE ---
Chart reviewed. Patient is current with [facility]. Will continue to follow hospital course and DC plans.
[2025-02-16] MEDS: MUCINEX 1200 MG PO ×2 (09:56→20:04)
[2025-02-16] MEDS: STERILE WATER FOR INJECTION 10 ML IV ×2 (09:56→17:46)
[2025-02-16] MEDS: NOVOLOG FLEXPEN-MODERATE RESISTANCE 1 UNITS SC ×2 (09:56→17:45)
[2025-02-16] MEDS: MAXIPIME 2000 MG IV ×2 (09:57→17:46)
--- NOTE | 2025-02-16 10:24 | CON.PUL ---
Consultation
Consultation Request
Date/Time Consultation Requested: 02/16/2025-10 AM
Date/Time Consultation Performed: 02/16/2025-10 AM
Requesting Provider: Cardiothoracic surgery
Performing Provider: Dr. Jin
Reason for Consultation: Pleural effusion/shortness of breath
Medical History
-
Chief Complaint: Shortness of breath
History of Present Illness:
75-year-old non-smoking male with a history of hypertension, hyperlipidemia, GERD, diabetes, CAD/aortic stenosis, PAT had redo CABG August 2024 and recent robotic assisted right decortication and pleurodesis by Dr. Alejandre on 02/04/2025 for entrapped
right lower lobe lung with recurrent pleural effusions and respiratory failure discharged on 02/11/2025 and readmitted 02/15/2025 with increasing shortness of breath-pulmonary consulted for pleural effusion and shortness of breath 02/16/2025.. The
patient had repeat thoracentesis and he feels better, less short of breath, still has some dyspnea exertion, no chest pain, pleurisy, hemoptysis, fevers, chills, night sweats, abdominal pain, increased leg swelling or focal weakness
Past Medical History
Past Medical History: None (Hypertension. Hyperlipidemia. CAD/aortic stenosis/CABG 2008 and redo CABG 2024. BPH. PAT. Diabetes/neuropathy. GERD. Recurrent right pleural effusion status post right decortication/pleurodesis 02/04/2025 for
entrapped lung.)
Past Surgical History: None (mechanical AVR (On-X)/CABG 2008-chronic anticoagulation (Coumadin); PCI 2024 complicated by spiral dissection of the DE LOS SANTOS subsequent redo CABG 08/2024; 02/04/25 RATS decortication of right lower lobe and right middle
lobes, decortication of chest wall due to thick pleura rind)
Social History
Tobacco: Non-smoker
Drug: None
Personal:
Living: With Family
Occupational Exposures: No known asbestos exposure
Environmental Exposures: No known tuberculosis exposure
Family History
Family History: CAD
Allergies / Home Medications
Allergies
Allergy/AdvReac Type Severity Reaction Status Date / Time
levofloxacin (From Levaquin) Allergy Mild muscle pain Verified 02/15/25 14:52
simvastatin (From Zocor) Allergy Mild MYALGIAS/leg Verified 02/15/25 14:52
cramping
rosuvastatin calcium (From Allergy Unknown Unknown Verified 02/15/25 14:52
Crestor)
Home Medications
�Medication �Instructions �Recorded �Confirmed �Last Taken �Type
cholecalciferol (vitamin D3) 25 1,000 units PO QPM Supplement 08/26/18 02/15/25 02/14/25 History
mcg (1,000 unit) tablet
fluticasone propionate 50 2 spray intranasal BIDPRN PRN 04/18/24 02/15/25 12/30/24 History
mcg/actuation nasal allergies
spray,suspension
amiodarone 200 mg tablet 200 mg PO DAILY Arrhythmia 30 days 09/15/24 02/15/25 02/15/25 Rx
#30 tabs
bumetanide 2 mg tablet 2 mg PO DAILY Fluid 09/15/24 02/15/25 02/15/25 Rx
retention/Swelling 30 days #30 tabs
clopidogrel 75 mg tablet 75 mg PO DAILY Blood clot 09/15/24 02/15/25 02/15/25 Rx
prevention/tx/Afib #30 tabs
dapagliflozin propanediol 10 mg 10 mg PO DAILY Heart 09/15/24 02/15/25 02/15/25 Rx
tablet disease/condition 30 days #30 tabs
docusate sodium 100 mg capsule 100 mg PO BID Constipation 30 days 09/15/24 02/15/25 02/15/25 Rx
#60 caps
ezetimibe 10 mg tablet (Zetia) 10 mg PO QPM High cholesterol 30 09/15/24 02/15/25 02/14/25 Rx
days #30 tabs
gabapentin 100 mg capsule 100 mg PO TID Pain 30 days #90 caps 09/15/24 02/15/25 02/15/25 Rx
sitagliptin phosphate 100 mg 100 mg PO DAILY Diabetes 30 days 09/15/24 02/15/25 02/15/25 Rx
tablet (Januvia) #30 tabs
tamsulosin 0.4 mg capsule 0.4 mg PO DAILY Bladder/BPH 30 09/15/24 02/15/25 02/15/25 Rx
days #30 caps
acetaminophen 500 mg tablet 1,000 mg PO DAILYPRN PRN mild pain 11/16/24 02/15/25 02/14/25 History
insulin aspart U-100 100 unit/mL 1 sliding scale dose SC 11/16/24 02/15/25 02/15/25 History
(3 mL) subcutaneous pen DIRECTED Diabetes
insulin glargine 100 unit/mL (3 19 unit SC QPM Diabetes 11/16/24 02/15/25 02/14/25 History
mL) subcutaneous pen (Lantus
Solostar U-100 Insulin)
metoprolol succinate 25 mg 25 mg PO DAILY blood pressure 11/16/24 02/15/25 02/15/25 History
tablet,extended release 24 hr
trazodone 50 mg tablet 75 mg PO HS insomnia 11/16/24 02/15/25 02/14/25 History
warfarin 5 mg tablet (Jantoven) 5 mg PO SUMOTUWE@1800 Blood Clot 11/16/24 02/15/25 02/11/25 History
Prevention/Tx
atorvastatin 80 mg tablet 40 mg PO QPM High Cholesterol 01/21/25 02/15/25 02/14/25 History
nitroglycerin 0.4 mg sublingual 0.4 mg sublingual Q5-15M PRN chest 01/21/25 02/15/25 Unknown History
tablet pain
oxycodone 5 mg tablet 2.5 mg (1/2 x 5 mg) PO Q4HPRN PRN 02/11/25 02/15/25 02/15/25 Rx
mild pain #10 tabs
ipratropium bromide 42 mcg (0.06 2 spray intranasal Q8HPRN PRN 02/15/25 02/15/25 Unknown History
%) nasal spray runny nose
therapeutic multivitamin 1 tab PO DAILY 02/15/25 02/15/25 02/15/25 History
warfarin 5 mg tablet 2.5 mg PO THFRSA@1800 02/15/25 02/15/25 02/14/25 History
Review of Systems
-
Unable to Obtain full review of systems at this time due to: Other ( per HPI)
Vitals / Labs / Diagnostic Testing
Vital Signs
Temp Pulse Resp BP Pulse Ox
98.5 F 65 18 120/65 97
02/16/25 06:53 02/16/25 09:00 02/16/25 06:53 02/16/25 07:15 02/16/25 06:53
Lab Data
02/16/25 03:16
02/16/25 03:16
Laboratory Results
02/15/25 02/16/25
12:35 03:16
PT 26.7 H 24.7 H
INR 2.46 2.22
Diagnostic Testing:
Physical Exam
-
Exam:
Well-nourished and well-developed in no apparent distress
HEENT-atraumatic, normocephalic
Neck-supple, no JVD, no bruit
Heart-regular rate and rhythm-no murmurs, rubs or gallops
Chest with diminished breath sounds at the right base, rare crackles, no wheezes
Back without tenderness
Abdomen-soft, nontender, nondistended, no hepatosplenomegaly
Extremities-no cyanosis, clubbing, edema and good peripheral pulses
Integument-intact, no rashes, lesions or ecchymosis
Neurology-alert and oriented, nonfocal motor and sensory exam
Assessment
-
75-year-old non-smoking male with a history of hypertension, hyperlipidemia, GERD, diabetes, CAD/aortic stenosis, PAT had redo CABG August 2024 and recent robotic assisted right decortication and pleurodesis by Dr. Alejandre on 02/04/2025 for entrapped
right lower lobe lung with recurrent pleural effusions and respiratory failure discharged on 02/11/2025 and readmitted 02/15/2025 with increasing shortness of breath-pulmonary consulted for pleural effusion and shortness of breath 02/16/2025.
Recurrent right pleural effusion status post repeat thoracentesis
Leukocytosis
Mgkegd-hrhfjfnsnm-abjzavxino 9.8
Hyperglycemia
Conditions present prior to admission:
Hypertension.
Hyperlipidemia.
CAD/aortic stenosis/CABG 2008 and redo CABG 2024.
BPH.
PAT.
Diabetes/neuropathy.
GERD.
Recurrent right pleural effusion status post right decortication/pleurodesis 02/04/2025 for entrapped lung.
Mechanical AVR /CABG 2008-chronic anticoagulation (Coumadin);
PCI 2024 complicated by spiral dissection of the DE [place] SANTOS subsequent redo CABG 08/2024;
02/04/25 RATS decortication of right lower lobe and right middle lobes, decortication of chest wall due to thick pleura rind
Plan
Respiratory decompensation with mild reaccumulation of right pleural fluid
Supplemental oxygen as needed
Nebulizers if needed
Mucolytics
Mucus clearing devices
CT chest reviewed-moderate amount of persistent pleural fluid with significant air-potentially postoperative changes versus infection.
If pleural fluid collected I would send for routine as well as cultures
Will need to follow radiographically
Monitor chest tube output.
Consider secondary chest tube for complete drainage
Empiric antibiotics-cefepime initiated
Blood cultures negative-repeat pending
Last MRSA screen negative
Follow hemoglobin
Transfuse if needed
Monitor blood sugar
Insulin supplementation as needed
DVT prophylaxis-on Coumadin
Nutrition
Early mobilization
Dr. Jin reviewed with at the bedside
Diagnostic data:
Chest x-ray 02/15/2025-progressive accumulation of right pleural fluid, no pneumothorax
Chest x-ray 02/16/2025-right chest tube present with moderate right pleural effusion
CT chest 02/15/2025-complex moderate right pleural effusion, numerous foci of gas are seen throughout the fluid likely multiloculated, mild mediastinal adenopathy
CT neck 05/03/21--severe degenerative/arthritic changes noted on the left side where the collar bone and chest bone or sternum meet -Sternoclavicular-which could explain the lump that he feels,, some carotid artery closure was noted and warrants
carotid ultrasounds, incidentally, his epiglottis also had a lot of calcifications which sometimes can be seen with people that have swallowing difficulties-Patient notified-we'll discuss carotid ultrasounds at next visit.�������
CT head angiogram 07/31/2023-no CT evidence for intracranial aneurysm
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
Brain MRA 06/28/21-no hemodynamically significant stenosis, branch occlusion or aneurysm�������
Neck MRA 06/28/21-no significant carotid plaque formation or hemodynamically significant stenosis
Echocardiogram 12/25/19-EF 65-70%�������
Echocardiogram 04/18/2024-EF 45-50%
Nuclear stress test 05/17/21-Systolic function moderately reduced, EF 41%, moderate risk study.
Cardiac catheterization 08/13/2024-successful PCI mid LAD distal stent edge haziness and 80% ISR lesion with reduction in stenosis, successful PCI 90% DE [place] SANTOS/LAD with reduction of stenosis to 0% with subsequent complication by dissection of DE [place] SANTOS graft
after post dilation
PSG around 2006 AHI-36, desaturation stefano 85%, CPAP 7-cm�������
HST-after 80 pound weight loss-05/23/21-ROSE-1.4, desaturation stefano 89%.
Data Reviewed
-
PFT: Report reviewed by me
EKG: Report reviewed by me
Radiology: Image personally visualized and interpreted and Report reviewed by me
CT Scan: Image personally visualized and interpreted and Report reviewed by me
MRI: Report reviewed by me
Medical Tests (Nuc Med, Echo etc): Report reviewed by me
Labs: Labs reviewed by me
Old Records: Reviewed
Total Time Spent with Patient (in minutes): 65
[2025-02-16 11:50] VITALS: BP 125/61
--- NOTE | 2025-02-16 12:30 | PTCARENOTE ---
IR at bedside to instill medication into CT. CT placed back to atrium, but both tube and atrium clamped. To be unclamped 1494
--- NOTE | 2025-02-16 12:33 | PN.IRAD.UPD ---
Update Note - IRAD
- -
went bedside at 1230 to instill dornase into patient's right sided chest tube. instilled with no complaints from patient, clamped tube, to be unclamped in two hours. nurse is aware.
[2025-02-16 12:56] LABS: Glucose - Point of Care 212 mg/dl (70-99)
--- NOTE | 2025-02-16 12:56 | WOUNDNOTE ---
R MEDIAL KNEE/LEG
--- NOTE | 2025-02-16 13:00 | WOUNDNOTE ---
WO RN note: Patient admitted for recurrent R pleural effusion.
See H&P for complete history.
PMH- PAD, type 2 diabetes, HTN, R pleural effusion-post RATS 02/[address] Alejandre.
Wound Location and type/assessment: Patient known to wound care service, last seen 02/02/25. Goes to [facility] and sees Dr. Gonzales q 3 wks. Now admitted with healed right leg wound, scar visible. Sacrum with healing stage 4 PI. 1cm depth base with
scant krishnamurtyh, mostly pink. Periwound blanchable red, improved since last seen. at bedside gave an update on current wound care with collagen dressing and foam. Has multiple offloading cushions at home, confirmed patient is using. Also using
mineral oil for dry skin on legs, supply at bedside.
Appetite: Good. Drinks supplemental protein shakes daily.
Pressure redistribution devices in place: Accumax, air chair cushion. Ambulates and can turn self.
Plan: Sacral dressing changed, used patient's own collagen dressing from home, folded 2x2 gauze then sacral silicone foam. Applied patient's own fungal cream to periwound, asking for a recommendation of something else to protect skin.
Recommended skin prep to periwound with same above dressing. Called [facility] for collagen dressing, we do not carry. Will obtain collagen (silver only available) from wound care center and drop off later when able. Staff can use patient's own mineral oil
at bedside, states no need to order more.
ERINN Garduno given update. Will confirm orders with hospitalist and update care plan.
Note to case management of equipment requested for discharge: None.
Recommend follow up at wound care center upon discharge.
[2025-02-16] MEDS: NOVOLOG FLEXPEN-MODERATE RESISTANCE 3 UNITS SC (13:01)
--- NOTE | 2025-02-16 14:30 | PTCARENOTE ---
CT unclamped and placed to -30cm suction. 10mL dark red fluid drained. No air leak, tidaling, crepitus noted. CT [employer] at bedside.
[2025-02-16 15:11] VITALS: BP 117/79
--- NOTE | 2025-02-16 15:37 | CM ---
spoke to pt and wifein room, he is prev indep, lives in a 2 story home with his and Grand daughter. he is a recent re-admit with a chest tube occlusion. he is current with [facility], referral faxed. plan is to return home with [facility] and ctrn
services.
[2025-02-16 17:11] LABS: Glucose - Point of Care 177 mg/dl (70-99)
[2025-02-16] MEDS: ZETIA 10 MG PO (17:46)
[2025-02-16] MEDS: VITAMIN D3 (cholecalciferol) 25 MCG PO (17:46)
[2025-02-16] MEDS: LIPITOR 40 MG PO (17:46)
[2025-02-16] MEDS: LANTUS 0.19 UNITS SC (17:46)
[2025-02-16] MEDS: COUMADIN 5 MG PO (17:57)
[2025-02-16 18:39] VITALS: BP 127/70
[2025-02-16] MEDS: TYLENOL 650 MG PO (20:04)
[2025-02-16] MEDS: ROXICODONE 5 MG PO (22:08)
[2025-02-16] MEDS: DESYREL 75 MG PO (22:08)
[2025-02-16 22:12] LABS: Glucose - Point of Care 252 mg/dl (70-99)
[2025-02-16 23:19] VITALS: BP 108/57
--- NOTE | 2025-02-16 23:30 | PTCARENOTE ---
Patient received at change of shift resting in the bed. Right chest tube site intact, no crepitus noted, no air leak present, -30mmHg suction, output is sanguinous. Sinus rhythm with 1st AVB on telemetry. Oxygen saturation 96-98% on room air. The
patient initially reported mild pain at the chest tube insertion site, PRN acetaminophen administered, see MAR. Chest tube site intact. Upon later reassessment of pain the patient reported it had increased to 6 out of 10, PRN oxycodone given, the
chest tube was noted to have kinked at the site where it was secured with a stat lock by a provider, the tube was un-kinked, sanguinous output was noted, and the patient reported feeling better. Plan of care discussed. Call xiao within reach. Bed in
lowest position, wheels locked. Care ongoing.
[2025-02-17] VITALS (9 sets, daily range): BP systolic 59–138; BP diastolic 59–80; BMI 25.7
[2025-02-17] MEDS: STERILE WATER FOR INJECTION 10 ML IV ×3 (03:04→17:21)
[2025-02-17] MEDS: MAXIPIME 2000 MG IV ×3 (03:04→17:21)
[2025-02-17 03:34] LABS: Hematocrit 30.2 % (39.0-52.0); Hemoglobin 9.7 g/dL (13.0-18.0); Mean Corp Hgb Conc. 32.1 g/dL (33.0-37.0); Mean Corpuscular Volume 83.4 fL (80.0-94.0); Platelet Count 262 10^3/uL (130-400); Red Cell Dist. Width 17.2 % (11.5-14.5)
[2025-02-17 03:49] LABS: INR 2.16; PT 24.2 Sec (11.4-14.6)
[2025-02-17 03:58] LABS: Blood Urea Nitrogen 32 mg/dl (9-20); Calcium 8.4 mg/dl (8.4-10.2); Carbon Dioxide 27 mmol/L (22-30); Chloride 101 mmol/L (98-107); Estimated Creatinine Clearance 63 ml/min; Glucose 182 mg/dl (70-99); Potassium 3.5 mmol/L (3.5-5.1); Sodium 134 mmol/L (135-145); eGFR > 60.00
[2025-02-17] MEDS: KCL 40 MEQ PO (05:19)
--- NOTE | 2025-02-17 05:43 | W.PN.CT ---
Today's Communication / Plan
-
Plan:
-No major issues overnight
-Chest tube to -30 cmh2o wall suction, drained 105 mL last 12hrs
-Underwent Dornase and TPA injection yesterday 02/16
-CXR this AM unchanged on my assessment, still with right basilar opacification, F/U official report
-Will ask IR to place large bore anterior chest tube today per Dr. Alejandre
-Coumadin and Plavix currently on hold, INR this AM is 2.16
-Placed on empiric Cefepime per Pulmonary team
-Will cont. to closely monitor
Assessment / Plan
-
74 year old male Known to CT surgery from prior AVR (On-X mechanical)/CABG in 2008 and redo CABG (08/2024), and recent robotic assisted right decortication and pleurodesis by Dr. Alejandre on 02/04/2025 for entrapped right lower lobe with recurrent
effusions and respiratory failure. Patient was discharged home on 02/11/2025 with right pleural chest tube to Heimlich valve and leg bag gravity drainage. Patient presents to [facility] ED on 02/15/25 with c/o orthopnea and increased chest tube drainage
from clear to bloody. Of note, pt is on both Plavix and Coumadin, INR in ED was 2.46. Both cxr and chest CT obtained on 02/14 yielded (moderate) right pleural effusion.
- s/p Robotic assisted thoracic surgery [RATS], Decortication of the right lower and right middle lobes, Decortication of the chest wall as there was a thick pleural rind, Decortication of the diaphragmatic surface, Extensive loculation and
adhesiolysis- Dr Alejandre-02/04/25
1. 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
2. 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
3. Sacral decub
4. Hypertension
5. Hyperlipidemia
6. Recurrent right-sided pleural effusions
7. Diabetes (A1C 6.8)
8. Sinus bradycardia
-Acute postop blood loss anemia
-Acute post-op respiratory insufficiency
-Acute postop right basilar pneumothorax
Discussed patient care with: Cardiology, Nursing, Respiratory Therapy, Pharmacy and Care Team
Subjective
-
Date of Service: February 17, 2025
Pt c/o chest tube insertion site discomfort, otherwise feels well
Objective Data
-
Lab Results
02/17/25 03:18
02/17/25 03:18
PT 24.2 Sec (11.4-14.6) H 02/17/25 03:18
INR 2.16 02/17/25 03:18
Vital Signs
Vital Signs
Temp Pulse Resp BP Pulse Ox
98.3 F 58 14 123/66 97
02/17/25 03:08 02/17/25 05:00 02/17/25 03:08 02/17/25 03:09 02/17/25 03:08
CT Intake/Output/Weight
02/16/25 02/16/25 02/17/25
06:59 18:59 06:59
Intake Total 240 / 240
Output Total 650 / 650 395 / 1350 955 / 1350
Balance -650 / -650 -155 / -1110 -955 / -1110
SaO2: 97 (RA)
Physical Exam
-
General: Awake, Oriented and AOx3
Cardiovascular: Regular rate & rhythm, No Murmurs, No Rub and No Gallop
Respiratory: Decreased Breath Sounds (@ right base, otherwise feels well)
Sternum: Stable
Incision: Clean, Dry, Intact and Dressing Intact
Extremities: Other (+trace edema )
Data Reviewed
-
Lab Results: Results Reviewed
Medications: Active Meds Reviewed
Chest X-Ray: Report Reviewed and Image Reviewed
ECG: Report Reviewed and Image Reviewed
[2025-02-17 07:12] LABS: Glucose - Point of Care 185 mg/dl (70-99)
[2025-02-17] MEDS: NOVOLOG FLEXPEN-MODERATE RESISTANCE 1 UNITS SC ×2 (08:23→16:53)
[2025-02-17] MEDS: PACERONE 200 MG PO (08:25)
[2025-02-17] MEDS: MUCINEX 1200 MG PO ×2 (08:25→20:03)
[2025-02-17] MEDS: FARXIGA 10 MG PO (08:26)
[2025-02-17] MEDS: COLACE 100 MG PO ×2 (08:26→20:02)
[2025-02-17] MEDS: THERAGRAN 1 TABLET PO (08:26)
[2025-02-17] MEDS: FLOMAX 0.4 MG PO (08:26)
[2025-02-17] MEDS: BUMEX 2 MG PO (08:26)
[2025-02-17] MEDS: TOPROL XL 25 MG PO (08:26)
[2025-02-17] MEDS: JANUVIA 100 MG PO (08:26)
--- NOTE | 2025-02-17 09:22 | PTCARENOTE ---
patient went to CAT scan via stretcher, talked to Lali [facility] patient may go off suction from his CT to test. patient back to room, R CT to suction draining serosanguineous fluid, no crepitus noted at site, no pain, 'a Little discomfort'. patient
remains NPO for another CT insertion by IR. Monitor shows NSR with a first degree, VSS. patient able to take medications in applesauce. INT right forearm flushes well. sacral foam noted on sacrum will change later today. at bedside.
[2025-02-17 09:41] LABS: Nucleated Red Blood Cells % 0 % (-)
--- NOTE | 2025-02-17 10:39 | W.PN.PUL.V3 ---
Today's Communication / Plan
-
additional chest tube placement.
Check cultures from pleural fluid in addition to routine labs.
Antibiotics
Assessment
-
75-year-old non-smoking male with a history of hypertension, hyperlipidemia, GERD, diabetes, CAD/aortic stenosis, PAT had redo CABG August 2024 and recent robotic assisted right decortication and pleurodesis by Dr. Alejandre on 02/04/2025 for entrapped
right lower lobe lung with recurrent pleural effusions and respiratory failure discharged on 02/11/2025 and readmitted 02/15/2025 with increasing shortness of breath-pulmonary consulted for pleural effusion and shortness of breath 02/16/2025.
Recurrent right pleural effusion status post repeat thoracentesis
Leukocytosis
Cexeth-xvvphmauci-okcykghcfi 9.8
Hyperglycemia
Conditions present prior to admission:
Hypertension.
Hyperlipidemia.
CAD/aortic stenosis/CABG 2008 and redo CABG 2024.
BPH.
PAT.
Diabetes/neuropathy.
GERD.
Recurrent right pleural effusion status post right decortication/pleurodesis 02/04/2025 for entrapped lung.
Mechanical AVR /CABG 2008-chronic anticoagulation (Coumadin);
PCI 2024 complicated by spiral dissection of the DE LOS SANTOS subsequent redo CABG 08/2024;
02/04/25 RATS decortication of right lower lobe and right middle lobes, decortication of chest wall due to thick pleura rind
Plan
Respiratory decompensation with mild reaccumulation of right pleural fluid
Supplemental oxygen as needed
Nebulizers if needed
Mucolytics
Mucus clearing devices
CT chest reviewed-moderate amount of persistent pleural fluid with significant air-potentially postoperative changes versus infection.
If pleural fluid collected I would send for routine as well as cultures
Will need to follow radiographically
Monitor chest tube output..
Additional chest tube to be placed by interventional radiology 02/17/25
Empiric antibiotics-cefepime initiated
Blood cultures negative-repeat pending
Last MRSA screen negative
Follow hemoglobin
Transfuse if needed
Monitor blood sugar
Insulin supplementation as needed
DVT prophylaxis-on Coumadin
Nutrition
Early mobilization
Dr. Jin reviewed with at the bedside On 02/16/25 and again on 02/17/25
Diagnostic data:
Chest x-ray 02/15/2025-progressive accumulation of right pleural fluid, no pneumothorax
Chest x-ray 02/16/2025-right chest tube present with moderate right pleural effusion
CT chest 02/15/2025-complex moderate right pleural effusion, numerous foci of gas are seen throughout the fluid likely multiloculated, mild mediastinal adenopathy
CT neck 05/03/21--severe degenerative/arthritic changes noted on the left side where the collar bone and chest bone or sternum meet -Sternoclavicular-which could explain the lump that he feels,, some carotid artery closure was noted and warrants
carotid ultrasounds, incidentally, his epiglottis also had a lot of calcifications which sometimes can be seen with people that have swallowing difficulties-Patient notified-we'll discuss carotid ultrasounds at next visit.�������
CT head angiogram 07/31/2023-no CT evidence for intracranial aneurysm
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
Brain MRA 06/28/21-no hemodynamically significant stenosis, branch occlusion or aneurysm�������
Neck MRA 06/28/21-no significant carotid plaque formation or hemodynamically significant stenosis
Echocardiogram 12/25/19-EF 65-70%�������
Echocardiogram 04/18/2024-EF 45-50%
Nuclear stress test 05/17/21-Systolic function moderately reduced, EF 41%, moderate risk study.
Cardiac catheterization 08/13/2024-successful PCI mid LAD distal stent edge haziness and 80% ISR lesion with reduction in stenosis, successful PCI 90% DE [place] SANTOS/LAD with reduction of stenosis to 0% with subsequent complication by dissection of DE LOS SANTOS graft
after post dilation
PSG around 2006 AHI-36, desaturation stefano 85%, CPAP 7-cm�������
HST-after 80 pound weight loss-05/23/21-ROSE-1.4, desaturation stefano 89%.
Subjective Data
-
Date of Service:
Date of Service: February 17, 2025
Chief Complaint: Pulmonary Follow Up and Dyspnea Follow Up
Subjective:
Feels better, less short of breath, no complaints of chest pain, abdominal pain, productive cough, chest tube draining
Review of Systems
General: Other ( per HPI)
Objective Data
Data Reviewed
Vital Signs / I&O:
Vital Signs
Temp Pulse Resp BP Pulse Ox
98.3 F 62 16 131/71 97
02/17/25 07:08 02/17/25 08:26 02/17/25 07:08 02/17/25 08:26 02/17/25 07:08
Intake and Output
02/16/25 02/17/25 02/18/25
06:59 06:59 06:59
Intake Total 720 / 720
Output Total 650 / 650 1360 / 1360
Balance -650 / -650 -640 / -640
SaO2: 97
Labs/Micro/Reports
Lab Data
02/17/25 12:00
02/17/25 03:18
Laboratory Results
02/17/25
03:18
PT 24.2 H
INR 2.16
Microbiology
02/16/25 03:16 Nose MRSA Screen - Final
No Methicillin Resistant Staphylococcus aureus isolated.
02/15/25 14:09 Blood/Venous Blood Culture - Preliminary
No Growth in 24 hours- Final report to follow
02/15/25 14:12 Blood/Venous Blood Culture - Preliminary
No Growth in 24 hours- Final report to follow
[2025-02-17] MEDS: FLUSH (NSS) 1 FLUSH IV ×2 (11:05→17:23)
[2025-02-17 11:43] LABS: Glucose - Point of Care 197 mg/dl (70-99)
--- NOTE | 2025-02-17 12:45 | CM ---
Reviewed chart. Met with and Mrs. Benavidez to review discharge plans. He states prior to admission he resides with his spouse in a two story home with two steps to enter. He has a full flight of steps to get to bedroom/full bathroom. He has a
powder room on the first floor. Prior to admission he was ambulating with a walker. He has a walker and single point cane at home. He is current with [facility]. He has a prescription plan. Will need to see his current functional
level to see if he will have any skilled care needs. Medical work-up in progress. The discharge plan is to return home with his spouse and resumption of [facility] when medically stable.
[2025-02-17] MEDS: NOVOLOG FLEXPEN-MODERATE RESISTANCE SC (12:46)
--- NOTE | 2025-02-17 16:32 | PTCARENOTE ---
patient returned from IR, additional right lateral pleural chest tube placed, marked B on canister draining serosanguineous fluid, to - 20cm suction with a Y connector for both chest tubes. no crepitus or pain at site, dsg. D/I.
[2025-02-17 16:50] LABS: Body Fluid Granulocytes 99 %
[2025-02-17 16:53] LABS: Glucose - Point of Care 190 mg/dl (70-99)
[2025-02-17 17:02] LABS: Body Fluid Second Tech DW
[2025-02-17] MEDS: LIPITOR 40 MG PO (17:23)
[2025-02-17] MEDS: VITAMIN D3 (cholecalciferol) 25 MCG PO (17:24)
[2025-02-17] MEDS: ZETIA 10 MG PO (17:24)
--- NOTE | 2025-02-17 18:33 | PTCARENOTE ---
received patient this am , flat affect, monitor shows NSR with a first degree, VSS. patient takes his medications in applesauce, he likes to take them that way. right pleural CT draining serosanguineous fluid, no crepitus, no pain. patient is
awaiting IR for a second chest tube. patient remains NPO for procedure. at bedside.
[2025-02-17] MEDS: ROXICODONE 5 MG PO (21:36)
[2025-02-17] MEDS: DESYREL 75 MG PO (21:37)
[2025-02-17 22:35] LABS: Glucose - Point of Care 220 mg/dl (70-99)
[2025-02-17] MEDS: LANTUS 0.19 UNITS SC (22:54)
[2025-02-18 02:21] VITALS: BP 135/60
[2025-02-18] MEDS: TYLENOL 650 MG PO ×3 (02:30→22:27)
[2025-02-18] MEDS: STERILE WATER FOR INJECTION 10 ML IV ×2 (02:30→10:41)
[2025-02-18] MEDS: MAXIPIME 2000 MG IV ×2 (02:30→10:41)
[2025-02-18 03:06] VITALS: BMI 25.6
[2025-02-18 03:37] LABS: Hematocrit 28.7 % (39.0-52.0); Hemoglobin 9.4 g/dL (13.0-18.0); Mean Corp Hgb Conc. 32.8 g/dL (33.0-37.0); Mean Corpuscular Volume 81.8 fL (80.0-94.0); Nucleated Red Blood Cells % 0 % (-); Platelet Count 262 10^3/uL (130-400); Red Cell Dist. Width 17.0 % (11.5-14.5)
--- NOTE | 2025-02-18 03:38 | PTCARENOTE ---
Pt. in NSR this shift, VSS. Right lateral pleural chest tubes x 2 to wall suction draining mod. amount SS fluid; no crepitus or air leaks assessed. Right lung coarse with scattered crackles, left CTA. Pulse ox on RA 97%. Medicated with oxycodone
and Tylenol for CT site discomfort with adequate relief obtained. Wound care provided to st. IV sacral wound. Pt. currently resting quietly.
--- NOTE | 2025-02-18 03:43 | DOWNTIME ---
There was a [employer] Client [employer] Operator Downtime on 02/18/2025 from 0100 to 02/18/2025 at 0235. Downtime documentation of patient's care, including medication administrations, has been reconciled in the electronic record per guidelines. Refer to the
patient's paper chart under the miscellaneous tab to see printed paper medication records and downtime forms.
[2025-02-18 03:50] LABS: INR 2.91; PT 30.3 Sec (11.4-14.6)
[2025-02-18 04:00] LABS: Blood Urea Nitrogen 36 mg/dl (9-20); Calcium 8.6 mg/dl (8.4-10.2); Carbon Dioxide 21 mmol/L (22-30); Chloride 103 mmol/L (98-107); Estimated Creatinine Clearance 63 ml/min; Glucose 193 mg/dl (70-99); Magnesium 1.9 mg/dl (1.6-2.3); Potassium 3.6 mmol/L (3.5-5.1); Sodium 134 mmol/L (135-145); eGFR > 60.00
[2025-02-18 06:55] VITALS: BP 120/73
--- NOTE | 2025-02-18 06:57 | W.PN.CT ---
Today's Communication / Plan
-
Plan:
-No major issues overnight '
-Pt had additional 14F pigtail chest tube placed by IR yesterday 02/17/25, CT 'B': drained 180 mL since placement, previous chest tube 'A' drained 45 mL last 12hr
-Underwent Dornase and TPA injection yesterday 02/16
-CXR this AM looks markedly improved on my assessment, F/U official report
-Coumadin and Plavix currently on hold, INR this AM is 2.91, will discuss resumption (may need to hold Coumadin tonight given INR 2.91)
-Placed on empiric Cefepime per Pulmonary team
-Will cont. to closely monitor
Assessment / Plan
-
74 year old male Known to CT surgery from prior AVR (On-X mechanical)/CABG in 2008 and redo CABG (08/2024), and recent robotic assisted right decortication and pleurodesis by Dr. Alejandre on 02/04/2025 for entrapped right lower lobe with recurrent
effusions and respiratory failure. Patient was discharged home on 02/11/2025 with right pleural chest tube to Heimlich valve and leg bag gravity drainage. Patient presents to [facility] ED on 02/15/25 with c/o orthopnea and increased chest tube drainage
from clear to bloody. Of note, pt is on both Plavix and Coumadin, INR in ED was 2.46. Both cxr and chest CT obtained on 02/14 yielded (moderate) right pleural effusion.
- s/p Robotic assisted thoracic surgery [RATS], Decortication of the right lower and right middle lobes, Decortication of the chest wall as there was a thick pleural rind, Decortication of the diaphragmatic surface, Extensive loculation and
adhesiolysis- Dr Alejandre-02/04/25
1. 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
2. 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
3. Sacral decub
4. Hypertension
5. Hyperlipidemia
6. Recurrent right-sided pleural effusions
7. Diabetes (A1C 6.8)
8. Sinus bradycardia
-Acute postop blood loss anemia
-Acute post-op respiratory insufficiency
-Acute postop right basilar pneumothorax
Discussed patient care with: Cardiology, Nursing, Respiratory Therapy, Pharmacy and Care Team
Subjective
-
Date of Service: February 18, 2025
pt mild chest tube site pain, otherwise feels well
Objective Data
-
Lab Results
02/18/25 06:00
02/18/25 03:14
PT 30.3 Sec (11.4-14.6) H 02/18/25 03:14
INR 2.91 02/18/25 03:14
Vital Signs
Vital Signs
Temp Pulse Resp BP Pulse Ox
97.5 F 54 18 135/60 96
02/18/25 06:55 02/18/25 05:00 02/18/25 02:20 02/18/25 02:21 02/18/25 06:55
CT Intake/Output/Weight
02/17/25 02/17/25 02/18/25
06:59 18:59 06:59
Intake Total 480 / 720 240 / 240
Output Total 965 / 1360 1260 / 2201 941 / 2201
Balance -485 / -640 -1260 / -1961 -701 / -1960
SaO2: 96 (RA)
Physical Exam
-
General: Awake, Oriented and AOx3
Cardiovascular: Regular rate & rhythm, No Murmurs, No Rub and No Gallop
Respiratory: Decreased Breath Sounds (right base, otherwise clear)
Sternum: Stable
Incision: Clean, Dry, Intact and Dressing Intact
Extremities: No Edema
Data Reviewed
-
Lab Results: Results Reviewed
Medications: Active Meds Reviewed
Chest X-Ray: Report Reviewed and Image Reviewed
ECG: Report Reviewed and Image Reviewed
[2025-02-18 07:10] LABS: Glucose - Point of Care 180 mg/dl (70-99)
[2025-02-18] MEDS: NOVOLOG FLEXPEN-MODERATE RESISTANCE 1 UNITS SC (08:51)
[2025-02-18] MEDS: BUMEX 2 MG PO (08:52)
[2025-02-18] MEDS: FARXIGA 10 MG PO (08:52)
[2025-02-18] MEDS: MUCINEX 1200 MG PO ×2 (08:52→19:46)
[2025-02-18] MEDS: COLACE 100 MG PO ×2 (08:53→19:45)
[2025-02-18] MEDS: FLOMAX 0.4 MG PO (08:53)
[2025-02-18] MEDS: PACERONE 200 MG PO (08:53)
[2025-02-18] MEDS: TOPROL XL 25 MG PO (08:53)
[2025-02-18] MEDS: JANUVIA 100 MG PO (08:53)
[2025-02-18] MEDS: THERAGRAN 1 TABLET PO (08:53)
--- NOTE | 2025-02-18 09:37 | PTCARENOTE ---
received patient this am in bed, monitor shows NSR with a first degree, VSS. patient is weak, c/o discomfort at CT sites, Tylenol po given as ordered. pleural CT A and B to -20cm suction, draining serosanguineous fluid, no crepitus at site. patient
takes medications with Fair life chocolate drink or applesauce. encouraged patient to get OOB, he is up in a chair with assist x 1.family at bedside.
--- NOTE | 2025-02-18 10:24 | W.PN.PUL.V3 ---
Today's Communication / Plan
-
We not she
Monitor chest tube output.
Follow radiographically
Assessment
-
75-year-old non-smoking male with a history of hypertension, hyperlipidemia, GERD, diabetes, CAD/aortic stenosis, PAT had redo CABG August 2024 and recent robotic assisted right decortication and pleurodesis by Dr. Alejandre on 02/04/2025 for entrapped
right lower lobe lung with recurrent pleural effusions and respiratory failure discharged on 02/11/2025 and readmitted 02/15/2025 with increasing shortness of breath-pulmonary consulted for pleural effusion and shortness of breath 02/16/2025.
Recurrent right pleural effusion status post repeat thoracentesis
Leukocytosis
Zomjyg-jweegevnfr-sukkkwsjez 9.8
Hyperglycemia
Conditions present prior to admission:
Hypertension.
Hyperlipidemia.
CAD/aortic stenosis/CABG 2008 and redo CABG 2024.
BPH.
PAT.
Diabetes/neuropathy.
GERD.
Recurrent right pleural effusion status post right decortication/pleurodesis 02/04/2025 for entrapped lung.
Mechanical AVR /CABG 2008-chronic anticoagulation (Coumadin);
PCI 2024 complicated by spiral dissection of the DE LOS SANTOS subsequent redo CABG 08/2024;
02/04/25 RATS decortication of right lower lobe and right middle lobes, decortication of chest wall due to thick pleura rind
Plan
Respiratory decompensation with mild reaccumulation of right pleural fluid
Supplemental oxygen as needed
Nebulizers if needed
Mucolytics
Mucus clearing devices.
Chest x-ray 02/18/25-stable appearance of the right basilar pigtail catheter, decreased size of the right-sided pleural effusion with improved aeration of the right long
CT chest reviewed-moderate amount of persistent pleural fluid with significant air-potentially postoperative changes versus infection.
If pleural fluid collected I would send for routine as well as cultures
Will need to follow radiographically
Monitor original chest tube output-drained approximately 45 mL
Additional chest tube placed by interventional radiology 02/17/25-Drained approximately 150 mL.
Status post TPA/DNase 02/16/25
Empiric antibiotics-cefepime initiated
Blood cultures negative-repeat pending
Last MRSA screen negative
Follow hemoglobin
Transfuse if needed
Monitor blood sugar
Insulin supplementation as needed
DVT prophylaxis-on Coumadin--currently on hold-elevated at 2.9
Nutrition
Early mobilization
Dr. Jin reviewed with at the bedside On 02/16/25 and again on 02/17/25 as well as son and on 02/18/25
Diagnostic data:
Chest x-ray 02/15/2025-progressive accumulation of right pleural fluid, no pneumothorax
Chest x-ray 02/16/2025-right chest tube present with moderate right pleural effusion
CT chest 02/15/2025-complex moderate right pleural effusion, numerous foci of gas are seen throughout the fluid likely multiloculated, mild mediastinal adenopathy
CT neck 05/03/21--severe degenerative/arthritic changes noted on the left side where the collar bone and chest bone or sternum meet -Sternoclavicular-which could explain the lump that he feels,, some carotid artery closure was noted and warrants
carotid ultrasounds, incidentally, his epiglottis also had a lot of calcifications which sometimes can be seen with people that have swallowing difficulties-Patient notified-we'll discuss carotid ultrasounds at next visit.�������
CT head angiogram 07/31/2023-no CT evidence for intracranial aneurysm
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
Brain MRA 06/28/21-no hemodynamically significant stenosis, branch occlusion or aneurysm�������
Neck MRA 06/28/21-no significant carotid plaque formation or hemodynamically significant stenosis
Echocardiogram 12/25/19-EF 65-70%�������
Echocardiogram 04/18/2024-EF 45-50%
Nuclear stress test 05/17/21-Systolic function moderately reduced, EF 41%, moderate risk study.
Cardiac catheterization 08/13/2024-successful PCI mid LAD distal stent edge haziness and 80% ISR lesion with reduction in stenosis, successful PCI 90% DE LOS SANTOS/LAD with reduction of stenosis to 0% with subsequent complication by dissection of DE LOS SANTOS graft
after post dilation
PSG around 2006 AHI-36, desaturation stefano 85%, CPAP 7-cm�������
HST-after 80 pound weight loss-05/23/21-ROSE-1.4, desaturation stefano 89%.
Subjective Data
-
Date of Service:
Date of Service: February 18, 2025
Chief Complaint: Pulmonary Follow Up and Dyspnea Follow Up
Subjective:
Chest tube continues to drain, no complaints of worsening shortness of breath, chest pain or abdominal pain
Review of Systems
General: Other (Per HPI)
Objective Data
Data Reviewed
Vital Signs / I&O:
Vital Signs
Temp Pulse Resp BP Pulse Ox
97.5 F 58 18 120/73 97
02/18/25 06:55 02/18/25 10:00 02/18/25 02:20 02/18/25 08:53 02/18/25 08:30
Intake and Output
02/17/25 02/18/25 02/19/25
06:59 06:59 06:59
Intake Total 720 / 720 240 / 240
Output Total 1360 / 1360 2201 / 2201 500 / 500
Balance -640 / -640 -1961 / -1961 -500 / -500
SaO2: 97
Physical Exam
General: Respiratory Distress (n) and Comfortable
HEENT: Normocephalic, Anicteric and Moist Mucous Membranes
Cardiovascular: Regular Rhythm and Murmur
Respiratory: Crackles ( right base), Rhonchi (. Expiratory), Non-Labored Respirations, Accessory Resp Muscle Use (n) and Stridor
GI: Soft, Non Distended and Non Tender
Neurology: Awake, Alert and No Motor Deficits
Skin: Warm, Good Color, Cyanosis (n) and Jaundice (n)
Labs/Micro/Reports
Lab Data
02/18/25 06:00
02/18/25 03:14
Laboratory Results
02/18/25
03:14
PT 30.3 H
INR 2.91
Microbiology
02/17/25 15:00 Pleural Fluid Gram Stain - Preliminary
02/17/25 15:00 Pleural Fluid Fungal Culture - Preliminary
Culture in progress.
Positive cultures are reported as soon as detected.
Final report to follow in four to five weeks.
02/15/25 14:12 Blood/Venous Blood Culture - Preliminary
No Growth in 48 hours- Final report to follow
02/15/25 14:09 Blood/Venous Blood Culture - Preliminary
No Growth in 48 hours- Final report to follow
02/16/25 03:16 Nose MRSA Screen - Final
No Methicillin Resistant Staphylococcus aureus isolated.
[2025-02-18] MEDS: FLUSH (NSS) 1 FLUSH IV ×2 (10:42→16:44)
[2025-02-18 11:32] VITALS: BP 105/67
[2025-02-18 11:46] LABS: Glucose - Point of Care 263 mg/dl (70-99)
[2025-02-18] MEDS: NOVOLOG FLEXPEN-MODERATE RESISTANCE 5 UNITS SC (12:01)
--- NOTE | 2025-02-18 12:04 | PTCARENOTE ---
U/A obtained and sent to lab.
[2025-02-18 12:41] LABS: Urine Character Clear (Clear)
[2025-02-18 12:56] LABS: Urine Red Blood Cell 0-2 /HPF (0-2); Urine Squamous Cell 0-2 /LPF (Few); Urine White Cell 0-2 /HPF (0-5)
--- NOTE | 2025-02-18 13:19 | CM ---
Reviewed chart. Met with and Mrs. Benavidez to review discharge plans. He states he is feeling a little better. Prior to admission he resides with his spouse in a two story home with two steps to enter. He has a full flight of steps to get to
bedroom/full bathroom. He has a powder room on the first floor. Prior to admission he was ambulating with a walker. He has a walker and single point cane at home. He is current with [facility]. He has a prescription plan. Will need to
see his current functional level to see if he will have any skilled care needs. Medical work-up in progress. The discharge plan is to return home with his spouse and resumption of [facility] when medically stable.
[2025-02-18] MEDS: ROXICODONE 5 MG PO (14:18)
--- NOTE | 2025-02-18 14:19 | PTCARENOTE ---
patient c/o CT site pain, 5 out of 10, Roxicodone po given as ordered.
[2025-02-18 15:02] VITALS: BP 123/65
--- NOTE | 2025-02-18 15:59 | CON.ID ---
Consultation
-
Date/Time Consultation Requested: February 18, 2025 1548
Date/Time Consultation Performed: February 18, 2025 1600
Requesting Provider: ROCIO Jacob
Performing Provider: Dr. Sheryl Shin
Reason for Consultation: Gram-negative celso in pleural fluid
Chief Complaint / Past History
Chief Complaint
SOB, Cough
History of Present Illness
75-year-old male with history of diabetes mellitus, mechanical aortic valve replacement on Coumadin, CAD prior CABG and stent, DE LOS SANTOS dissection during PCI s/p emergent redo CABG SVG to LAD, complicated by RV laceration during CABG requiring extensive
repair 08/13/24. Since October 2024, patient has been having recurrent right pleural effusion requiring several repeat thoracentesis. On February 04, 2025, he underwent robotic assisted thoracic surgery and decortication. He had [address],
one removed, and he was discharged February 11 with 1 chest tube attached to Heimlich valve. Patient reports the chest tube was not draining much at home. He then developed acute shortness of breath, worsening cough, unable to lay flat, low-grade
fevers and therefore presented back to the ER on February 15. T=100.7, wbc 17. Chest CT showed complex pleural effusion with gas, slightly increased attenuation which could indicate purulent material liver or blood products. February 16, he underwent
pleural lysis. February 17 continue chest tube placed; fluid 3006 LDH, culture growing gram-negative celso. Patient has been receiving cefepime and changed to Zosyn today. Patient denies any pain. No nausea, vomiting, or diarrhea. No urine
symptoms.
Past History
Additional Past Medical History:
Diabetes mellitus
Hypertension
Dyslipidemia
Afib
Mechanical aortic valve replacement
CAD history CABG and stents
DE LOS SANTOS dissection during PCI s/p emergent redo CABG SVG to LAD, 08/13/24
CABG complicated by RV laceration by retained sternal wire s/p extensive repair 08/13/24
Right medial leg saphenectomy site infected hematoma s/p I+D 10/2024
Recurrent R pleural effusion s/p decortication 02/04/25
Spinal stenosis
PAT
tremors
Chronic sacral decubitus
Allergy History:
levofloxacin (From Levaquin) Allergy (Mild, Verified 02/15/25 14:52)
muscle pain
simvastatin (From Zocor) Allergy (Mild, Verified 02/15/25 14:52)
MYALGIAS/leg cramping
rosuvastatin calcium (From Crestor) Allergy (Unknown, Verified 02/15/25 14:52)
Unknown
Medications Reviewed: Yes
Current Antibiotics:
s/p cefepime x 3d
Zosyn
Social History
Tobacco: Non-Smoker
Alcohol: None
Drug: None
Personal:
Living: With Family
Family History
Family History: Not Pertinent
Review of Systems
Review of Systems
General: Fever, Chills and Change in Appetite
HEENT: Negative Sinus Problems or Headache
Cardiovascular: Negative Chest Pain
Respiratory: Dyspnea and Cough; Negative Sputum Production
Gasteroenterology: Negative Nausea, Vomiting or Diarrhea
Genital / Urological: Negative Dysuria or Flank Pain
Endocrine: Weakness
Skin / Hair / Nails: Negative Rash
All systems: All other systems were reviewed and were negative
Vital Signs
Temp Pulse Resp BP Pulse Ox
98.1 F 56 20 105/67 98
02/18/25 15:02 02/18/25 13:00 02/18/25 15:02 02/18/25 11:32 02/18/25 15:02
Physical Exam
Physical Exam
Constitutional: No Acute Distress
Head: Other (No frontal or max or sinus tenderness)
Eyes: No Conjunctival Hemorrhage and Sclera Anicteric
Cardiovascular: Regular Rate and S1/S2
Pulmonary: Other (R lung 2 chest tubes with bloody fluid. )
Gastrointestinal: Soft, Non Tender, Non Distended and Normal Bowel Sounds
Genito-Urinary: Negative CVA Tenderness
Extremities: Negative Edema
Musculoskeletal: Negative Spinal Tenderness
Neurological: AO x 3
Lab / Diagnostic Study Results
02/18/25 06:00
02/18/25 03:14
Abs Immat Gran (auto) 0.2 10^3/uL (0-0.05) H 02/18/25 03:14
Absolute Neuts (auto) 17.4 10^3/uL (1.4-6.5) H 02/18/25 03:14
Absolute Lymphs (auto) 1.1 10^3/uL (1.2-3.4) L 02/18/25 03:14
Absolute Monos (auto) 1.7 10^3/uL (0.1-0.6) H 02/18/25 03:14
Absolute Basos (auto) 0.0 10^3/uL (0-0.2) 02/18/25 03:14
Immature Gran % 0.7 % (0-0.5) H 02/18/25 03:14
Neutrophils % 85.8 % (42.2-75.2) H 02/18/25 03:14
Lymphocytes % 5.3 % (20.5-51.1) L 02/18/25 03:14
Monocytes % 8.1 % (1.7-9.3) 02/18/25 03:14
Eosinophils % 0.0 % (0-6) 02/18/25 03:14
Basophils % 0.1 % (0-2) 02/18/25 03:14
PT 30.3 Sec (11.4-14.6) H 02/18/25 03:14
INR 2.91 02/18/25 03:14
Lactic Acid Cancelled 02/15/25 17:45
Ur Squamous Epith Cells 0-2 /LPF (Few) 02/18/25 11:58
Microbiology Results
Micro:
02/17/25 15:00 Body Fluid Culture - Preliminary
Pleural Fluid Gram negative bacilli
Gram Stain - Preliminary
02/15/25 14:09 Blood Culture - Preliminary
Blood/Venous No Growth in 72 hours- Final report to follow
02/15/25 14:12 Blood Culture - Preliminary
Blood/Venous No Growth in 72 hours- Final report to follow
02/17/25 15:00 Fungal Smear - Final
Pleural Fluid No yeast or fungal elements seen.
Fungal Culture - Preliminary
Culture in progress.
Positive cultures are reported as soon as detected.
Final report to follow in four to five weeks.
02/17/25 15:00 Acid Fast Bacilli Smear - Pending
Pleural Fluid Acid Fast Bacilli Culture - Pending
02/16/25 03:16 MRSA Screen - Final
Nose No Methicillin Resistant Staphylococcus aureus isolated.
02/17/25 CT chest: MODERATE-SIZED COMPLEX LOCULATED HYDROPNEUMOTHORAX in the inferior right pleural space which appears unchanged in size from 02/15/2025.
Right chest tube remaining in position in the right posterior pleural space. Moderate subpleural airspace consolidation in the right lower lung adjacent to the complex loculated hydropneumothorax (greatest in the posterior basilar segment of the
right lower lobe).
02/15 CT chest: Right chest tube. Complex moderate right pleural effusion. Numerous foci of gas are seen throughout the fluid. Likely multiloculated. There is a small amount of slightly increased attenuation noted within the pleural space, which
could indicate more purulent material or blood products. No anterior or apical pneumothorax. No mediastinal shift.
Assessment / Plan
# R empyema
# Fever
# Leukocytosis
- Recent recurrent R pleural effusion s/p OR decortication 02/04/25
- 02/17 New chest tube placed -> Fluid 3000 LDH, cx GNR
- Agree with Zosyn (d1) pending cx data.
- Continue with empyema drainage
- Follow temps and wbc.
[2025-02-18] MEDS: ZOSYN 50 IV ×2 (16:44→22:29)
--- NOTE | 2025-02-18 17:09 | PTCARENOTE ---
right forearm INT is leaking, D/C'd. restarted INT in left forearm #[id number] to infuse IV antibiotic.
[2025-02-18 17:24] LABS: Glucose - Point of Care 212 mg/dl (70-99)
[2025-02-18] MEDS: NOVOLOG FLEXPEN-MODERATE RESISTANCE 3 UNITS SC (17:26)
[2025-02-18] MEDS: VITAMIN D3 (cholecalciferol) 25 MCG PO (17:27)
[2025-02-18] MEDS: LIPITOR 40 MG PO (17:27)
[2025-02-18] MEDS: ZETIA 10 MG PO (17:27)
[2025-02-18 18:31] VITALS: BP 122/63
[2025-02-18 22:06] LABS: Glucose - Point of Care 218 mg/dl (70-99)
[2025-02-18 22:23] VITALS: BP 116/60
[2025-02-18] MEDS: DESYREL 75 MG PO (22:27)
[2025-02-18] MEDS: LANTUS 0.19 UNITS SC (22:29)
--- NOTE | 2025-02-18 23:18 | PTCARENOTE ---
Received patient at change of shift. SB on the monitor, HR in the 50s. 97% on room air. Pleural CT A and B to -20cm suction, draining serosanguineous fluid, no crepitus at site. Pt requested PRN Tylenol before bed for pain at chest tube site. Call
xiao within reach.
[2025-02-19] VITALS (11 sets, daily range): BP systolic 98–125; BP diastolic 51–67; PULSE 57; O2SAT 97; BMI 25.6
[2025-02-19] MEDS: ZOSYN 50 IV ×2 (03:53→09:49)
[2025-02-19 04:18] LABS: Hematocrit 27.8 % (39.0-52.0); Hemoglobin 9.1 g/dL (13.0-18.0); Mean Corp Hgb Conc. 32.7 g/dL (33.0-37.0); Mean Corpuscular Volume 81.5 fL (80.0-94.0); Nucleated Red Blood Cells % 0 % (-); Platelet Count 247 10^3/uL (130-400); Red Cell Dist. Width 17.0 % (11.5-14.5)
[2025-02-19 04:35] LABS: INR 3.12; PT 32.4 Sec (11.4-14.6)
[2025-02-19 04:44] LABS: Blood Urea Nitrogen 41 mg/dl (9-20); Calcium 8.1 mg/dl (8.4-10.2); Carbon Dioxide 23 mmol/L (22-30); Chloride 104 mmol/L (98-107); Estimated Creatinine Clearance 63 ml/min; Glucose 160 mg/dl (70-99); Magnesium 2.0 mg/dl (1.6-2.3); Potassium 3.3 mmol/L (3.5-5.1); Sodium 135 mmol/L (135-145); eGFR > 60.00
[2025-02-19] MEDS: KCL 40 MEQ PO (05:15)
[2025-02-19] MEDS: ROXICODONE 5 MG PO (05:20)
[2025-02-19 07:48] LABS: Glucose - Point of Care 182 mg/dl (70-99)
[2025-02-19] MEDS: TOPROL XL 25 MG PO (07:52)
[2025-02-19] MEDS: NOVOLOG FLEXPEN-MODERATE RESISTANCE 1 UNITS SC ×2 (07:52→17:40)
[2025-02-19] MEDS: COLACE 100 MG PO ×2 (07:53→19:31)
[2025-02-19] MEDS: JANUVIA 100 MG PO (07:53)
[2025-02-19] MEDS: PACERONE 200 MG PO (07:53)
[2025-02-19] MEDS: THERAGRAN 1 TABLET PO (07:53)
[2025-02-19] MEDS: FLOMAX 0.4 MG PO (07:53)
[2025-02-19] MEDS: MUCINEX 1200 MG PO ×2 (07:53→19:31)
[2025-02-19] MEDS: BUMEX 2 MG PO (07:53)
[2025-02-19] MEDS: FARXIGA 10 MG PO (07:53)
--- NOTE | 2025-02-19 08:43 | W.PN.CT ---
Today's Communication / Plan
-
-No issues overnight
-Pt had additional 14F pigtail chest tube placed by IR on 02/17/25, CT 'B': drained , and previous chest tube 'A' drained of dark bloody drainage in 12/24 hrs
-Underwent Dornase and TPA injection on 02/16
-follow CXR
-Coumadin and Plavix currently on hold, INR this AM actually trended up - 3.21 today (last Coumadin was 5 mg on 02/16)
-fluid cx with Gram neg bacilli - currently on Zosyn, followed by ID
-appreciate everyone's input
Assessment / Plan
-
74 year old male Known to CT surgery from prior AVR (On-X mechanical)/CABG in 2008 and redo CABG (08/2024), and recent robotic assisted right decortication and pleurodesis by Dr. Alejandre on 02/04/2025 for entrapped right lower lobe with recurrent
effusions and respiratory failure. Patient was discharged home on 02/11/2025 with right pleural chest tube to Heimlich valve and leg bag gravity drainage. Patient presents to [facility] ED on 02/15/25 with c/o orthopnea and increased chest tube drainage
from clear to bloody. Of note, pt is on both Plavix and Coumadin, INR in ED was 2.46. Both cxr and chest CT obtained on 02/14 yielded (moderate) right pleural effusion.
- s/p Robotic assisted thoracic surgery [RATS], Decortication of the right lower and right middle lobes, Decortication of the chest wall as there was a thick pleural rind, Decortication of the diaphragmatic surface, Extensive loculation and
adhesiolysis- Dr Alejandre-02/04/25
- R Empyema/leukocytosis/ fever - 02/17 New chest tube placed -> Fluid 3000 LDH, cx GNR. Started on Zosyn pending cx results
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
- History of AVR (mechanical)/CABG (2008) and redo CABG (08/2024)
- Sacral decub
- Hypertension
- Hyperlipidemia
- Recurrent right-sided pleural effusions
- Diabetes (A1C 6.8)
- Sinus bradycardia
-Acute postop blood loss anemia
-Acute post-op respiratory insufficiency
-Acute postop right basilar pneumothorax
Discussed patient care with: Nursing and Care Team
Subjective
-
Date of Service: February 19, 2025
Objective Data
-
Lab Results
02/19/25 04:09
02/19/25 04:09
PT 32.4 Sec (11.4-14.6) H 02/19/25 04:09
INR 3.12 02/19/25 04:09
Vital Signs
Vital Signs
Temp Pulse Resp BP Pulse Ox
98.2 F 55 16 125/66 96
02/19/25 04:01 02/19/25 07:53 02/19/25 04:01 02/19/25 07:53 02/19/25 08:38
CT Intake/Output/Weight
02/18/25 02/19/25 02/19/25
18:59 06:59 18:59
Output Total 605 / 1242 637 / 1242
Balance -605 / -1242 -637 / -1242
SaO2: 96
Physical Exam
-
General: Awake, Oriented and AOx3
Cardiovascular: Regular rate & rhythm, No Murmurs, No Rub and No Gallop
Respiratory: Decreased Breath Sounds (right base, otherwise clear)
Sternum: Stable
Incision: Clean, Dry, Intact and Dressing Intact
Extremities: No Edema
Data Reviewed
-
Lab Results: Results Reviewed
Medications: Active Meds Reviewed
Chest X-Ray: Report Reviewed and Image Reviewed
ECG: Report Reviewed and Image Reviewed
--- NOTE | 2025-02-19 08:47 | PTCARENOTE ---
pt aaox3. oob in chair. states min discomfort in right side does not want pain med at this time. 2 chest tubes to wall suction. no air leak or crepitus noted. room air. breath sounds diminished with crackles and rhonchi heard on right side.
--- NOTE | 2025-02-19 09:26 | W.PN.ID1 ---
Addendum entered and electronically signed by Sheryl Shin MD 02/19/25 12:13:
Pleural fluid cx Klebsiella oxytoca.
Recommend ceftriaxone 2g IV q24h x 6 weeks through 03/30/25.
Infusion sheet submitted to wrapper caser.
Place PICC.
Original Note:
Date of Service
Date of Service: February 19, 2025
Today's Communication
Continue Zosyn.
Assessment / Plan
# R empyema
# Fever- resolved
# Leukocytosis - improving
- Recent recurrent R pleural effusion s/p OR decortication 02/04/25
- 02/17 New chest tube placed -> Fluid 3000 LDH, cx GNR
- Continue Zosyn (d2) pending cx data.
- Continue with empyema drainage
- Follow temps and wbc.
# Additional Past Medical History:
Diabetes mellitus
Hypertension
Dyslipidemia
Afib
Mechanical aortic valve replacement
CAD history CABG and stents
DE LOS SANTOS dissection during PCI s/p emergent redo CABG SVG to LAD, 08/13/24
CABG complicated by RV laceration by retained sternal wire s/p extensive repair 08/13/24
Right medial leg saphenectomy site infected hematoma s/p I+D 10/2024
Recurrent R pleural effusion s/p decortication 02/04/25
Spinal stenosis
PAT
tremors
Chronic sacral decubitus
Chief Complaint
-: Leukocytosis and Other (empyema)
Subjective / Review of Systems
Has intermittent SOB
Vital Signs / Physical Exam
Vital Signs
Vital Signs
Temp Pulse Resp BP Pulse Ox
98.1 F 55 16 125/66 96
02/19/25 08:46 02/19/25 07:53 02/19/25 04:01 02/19/25 07:53 02/19/25 08:50
Physical Exam
Constitutional: No Acute Distress
Cardiovascular: Regular Rate and S1/S2
Pulmonary: Other (left chest tubes x [address])
Gastrointestinal: Soft, Non Tender and Non Distended
Extremities: Negative Edema
Neurological: AO x 3
Objective Data
Lab Data
Lab Results
02/19/25 04:09
02/19/25 04:09
PT 32.4 Sec (11.4-14.6) H 02/19/25 04:09
INR 3.12 02/19/25 04:09
Estimated Creat Clear 63 ml/min 02/19/25 04:09
Lactic Acid Cancelled 02/15/25 17:45
Total Bilirubin 1.0 mg/dl (0.2-1.3) 02/15/25 12:35
AST 28 U/L (17-59) 02/15/25 12:35
ALT 24 U/L (0-50) 02/15/25 12:35
Alkaline Phosphatase 146 U/L (38-126) H 02/15/25 12:35
Most recent labs reviewed.
Micro Results:
02/17/25 15:00 Body Fluid Culture - Preliminary
Pleural Fluid Gram negative bacilli
Gram Stain - Preliminary
02/15/25 14:09 Blood Culture - Preliminary
Blood/Venous No Growth in 72 hours- Final report to follow
02/15/25 14:12 Blood Culture - Preliminary
Blood/Venous No Growth in 72 hours- Final report to follow
02/17/25 15:00 Fungal Smear - Final
Pleural Fluid No yeast or fungal elements seen.
Fungal Culture - Preliminary
Culture in progress.
Positive cultures are reported as soon as detected.
Final report to follow in four to five weeks.
02/17/25 15:00 Acid Fast Bacilli Smear - Pending
Pleural Fluid Acid Fast Bacilli Culture - Pending
02/16/25 03:16 MRSA Screen - Final
Nose No Methicillin Resistant Staphylococcus aureus isolated.
02/17/25 CT chest: MODERATE-SIZED COMPLEX LOCULATED HYDROPNEUMOTHORAX in the inferior right pleural space which appears unchanged in size from 02/15/2025.
Right chest tube remaining in position in the right posterior pleural space. Moderate subpleural airspace consolidation in the right lower lung adjacent to the complex loculated hydropneumothorax (greatest in the posterior basilar segment of the
right lower lobe).
02/15 CT chest: Right chest tube. Complex moderate right pleural effusion. Numerous foci of gas are seen throughout the fluid. Likely multiloculated. There is a small amount of slightly increased attenuation noted within the pleural space, which
could indicate more purulent material or blood products. No anterior or apical pneumothorax. No mediastinal shift.
--- NOTE | 2025-02-19 09:36 | W.PN.UPDATE ---
Update Note
Progress Note Update
Surgical right sided chest tube discontinued by me without incident. Pt tolerated very well. Green ethibond stitch tied down--to be removed in the office. 14F IR tube still intact and re-dressed, tidaling well.
[2025-02-19] MEDS: TYLENOL 650 MG PO ×2 (09:49→22:07)
--- NOTE | 2025-02-19 10:19 | W.PN.PUL.V3 ---
Today's Communication / Plan
-
Wean oxygen.
Original chest tube to be removed today.
Continue to monitor second chest tube output.
Follow chest x-ray.
Extended course of antibiotics per infectious disease
Assessment
-
75-year-old non-smoking male with a history of hypertension, hyperlipidemia, GERD, diabetes, CAD/aortic stenosis, PAT had redo CABG August 2024 and recent robotic assisted right decortication and pleurodesis by Dr. Alejandre on 02/04/2025 for entrapped
right lower lobe lung with recurrent pleural effusions and respiratory failure discharged on 02/11/2025 and readmitted 02/15/2025 with increasing shortness of breath-pulmonary consulted for pleural effusion and shortness of breath 02/16/2025.
Recurrent right pleural effusion status post repeat thoracentesis
Leukocytosis
[id number] 9.8
Hyperglycemia
Conditions present prior to admission:
Hypertension.
Hyperlipidemia.
CAD/aortic stenosis/CABG 2008 and redo CABG 2024.
BPH.
PAT.
Diabetes/neuropathy.
GERD.
Recurrent right pleural effusion status post right decortication/pleurodesis 02/04/2025 for entrapped lung.
Mechanical AVR /CABG 2008-chronic anticoagulation (Coumadin);
PCI 2024 complicated by spiral dissection of the DE LOS SANTOS subsequent redo CABG 08/2024;
02/04/25 RATS decortication of right lower lobe and right middle lobes, decortication of chest wall due to thick pleura rind
Plan
Respiratory decompensation with mild reaccumulation of right pleural fluid
Supplemental oxygen as needed-assess discharge needs
Nebulizers if needed
Mucolytics
Mucus clearing devices.
Chest x-ray 02/18/25-stable appearance of the right basilar pigtail catheter, decreased size of the right-sided pleural effusion with improved aeration of the right long
Chest x-ray 02/19/25-right pigtail catheter with small pleural effusion noted
CT chest reviewed-moderate amount of persistent pleural fluid with significant air-potentially postoperative changes versus infection.
If pleural fluid collected I would send for routine as well as cultures
Will need to follow radiographically
Monitor original chest tube output-drained approximately 45 mL-removed by CT surgery 02/19/25
Additional chest tube placed by interventional radiology 02/17/25-Drained approximately 150 mL.
Status post TPA/DNase 02/16/25
Empiric antibiotics-cefepime initiated
Blood cultures negative.
Pleural fluid cultures 02/17/25-positive Klebsiella oxytoca
Last MRSA screen negative.
Infectious disease following-correspondence reviewed.
Pleural fluid cx Klebsiella oxytoca.
Recommend ceftriaxone 2g IV q24h x 6 weeks through 03/30/25.
Follow hemoglobin
Transfuse if needed
Monitor blood sugar
Insulin supplementation as needed
DVT prophylaxis-on Coumadin--currently on hold-elevated at 3.12
Nutrition
Physical therapy
Dr. Jin reviewed with at the bedside On 02/16/25 and again on 02/17/25 as well as son and on 02/18/25
Diagnostic data:
Chest x-ray 02/15/2025-progressive accumulation of right pleural fluid, no pneumothorax
Chest x-ray 02/16/2025-right chest tube present with moderate right pleural effusion
CT chest 02/15/2025-complex moderate right pleural effusion, numerous foci of gas are seen throughout the fluid likely multiloculated, mild mediastinal adenopathy
CT neck 05/03/21--severe degenerative/arthritic changes noted on the left side where the collar bone and chest bone or sternum meet -Sternoclavicular-which could explain the lump that he feels,, some carotid artery closure was noted and warrants
carotid ultrasounds, incidentally, his epiglottis also had a lot of calcifications which sometimes can be seen with people that have swallowing difficulties-Patient notified-we'll discuss carotid ultrasounds at next visit.�������
CT head angiogram 07/31/2023-no CT evidence for intracranial aneurysm
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
Brain MRA 06/28/21-no hemodynamically significant stenosis, branch occlusion or aneurysm�������
Neck MRA 06/28/21-no significant carotid plaque formation or hemodynamically significant stenosis
Echocardiogram 12/25/19-EF 65-70%�������
Echocardiogram 04/18/2024-EF 45-50%
Nuclear stress test 05/17/21-Systolic function moderately reduced, EF 41%, moderate risk study.
Cardiac catheterization 08/13/2024-successful PCI mid LAD distal stent edge haziness and 80% ISR lesion with reduction in stenosis, successful PCI 90% DE LOS SANTOS/LAD with reduction of stenosis to 0% with subsequent complication by dissection of DE LOS SANTOS graft
after post dilation
PSG around 2006 AHI-36, desaturation stefano 85%, CPAP 7-cm�������
HST-after 80 pound weight loss-05/23/21-ROSE-1.4, desaturation stefano 89%.
Subjective Data
-
Date of Service:
Date of Service: February 19, 2025
Chief Complaint: Pulmonary Follow Up and Dyspnea Follow Up
Subjective:
Feels better, minimal chest tube drainage, no chest pain or abdominal pain, then
Review of Systems
General: Other ( per HPI)
Objective Data
Data Reviewed
Vital Signs / I&O:
Vital Signs
Temp Pulse Resp BP Pulse Ox
98.1 F 58 16 125/66 96
02/19/25 08:46 02/19/25 09:00 02/19/25 04:01 02/19/25 07:53 02/19/25 08:50
Intake and Output
02/18/25 02/19/25 02/20/25
06:59 06:59 06:59
Intake Total 240 / 240
Output Total 2201 / 2201 1242 / 1242 400 / 400
Balance -1961 / -1961 -1242 / -1242 -400 / -400
SaO2: 96
Physical Exam
General: Respiratory Distress (n) and Comfortable
HEENT: Normocephalic, Anicteric and Moist Mucous Membranes
Cardiovascular: Regular Rhythm and Murmur
Respiratory: Crackles ( right base), Rhonchi (. Expiratory), Non-Labored Respirations, Accessory Resp Muscle Use (n) and Stridor
GI: Soft, Non Distended and Non Tender
Neurology: Awake, Alert and No Motor Deficits
Skin: Warm, Good Color, Cyanosis (n) and Jaundice (n)
Labs/Micro/Reports
Lab Data
02/19/25 04:09
02/19/25 04:09
Laboratory Results
02/19/25
04:09
PT 32.4 H
INR 3.12
Microbiology
02/17/25 15:00 Pleural Fluid Body Fluid Culture - Preliminary
Gram negative bacilli
02/17/25 15:00 Pleural Fluid Gram Stain - Preliminary
02/15/25 14:09 Blood/Venous Blood Culture - Preliminary
No Growth in 72 hours- Final report to follow
02/15/25 14:12 Blood/Venous Blood Culture - Preliminary
No Growth in 72 hours- Final report to follow
02/17/25 15:00 Pleural Fluid Fungal Smear - Final
No yeast or fungal elements seen.
02/17/25 15:00 Pleural Fluid Fungal Culture - Preliminary
Culture in progress.
Positive cultures are reported as soon as detected.
Final report to follow in four to five weeks.
02/16/25 03:16 Nose MRSA Screen - Final
No Methicillin Resistant Staphylococcus aureus isolated.
[2025-02-19 11:49] LABS: Glucose - Point of Care 222 mg/dl (70-99)
[2025-02-19] MEDS: NOVOLOG FLEXPEN-MODERATE RESISTANCE 3 UNITS SC (11:56)
[2025-02-19] MEDS: ROCEPHIN 2000 MG IV (11:56)
[2025-02-19] MEDS: STERILE WATER FOR INJECTION 20 ML IV (11:56)
--- NOTE | 2025-02-19 13:06 | VATNOTE ---
Pt with INR of 3.12, maximum threshold for PICC insertion is 3.0. Discussed with care team and INR should drift down tomorrow, per the cardiac DOUGH MACHINE OPERATOR. OK per Dr. Shin to place PICC line tomorrow. Will continue to follow.
--- NOTE | 2025-02-19 14:13 | PN.CDI ---
CDI
- -
CDI:
Physician Documentation Request
Admit Date: 02/15/25 16:57
Dear Doctor /CVPA,
Please review the following and provide your response in the progress notes.
Clinical Indicators:
Pt admitted with recurrent pleural effusion found to have empyema
ID consult, ' # R empyema Fever Leukocytosis...02/17 New chest tube placed -> Fluid 3000 LDH, cx GNR ... - Continue with empyema drainage Follow temps and wbc. ...'
ID progress note 02/19 , ' Pleural fluid cx Klebsiella oxytoca. Recommend ceftriaxone 2g IV q24h x 6 weeks through 03/30/25...'
CT surgery note 02/19, ' R Empyema/leukocytosis/ fever - 02/17 New chest tube placed -> Fluid 3000 LDH, cx GNR...'
On admission WBC 17.1, Respirations 36
02/15/25
12:30 02/15/25
14:30 02/15/25
15:30
Resp Rate 34 32 31
02/15/25
16:15 02/15/25
17:00 02/15/25
18:15
Resp Rate 33 34 30
02/15/25 02/16/25 02/17/25
12:35 03:16 03:18
WBC 17.1 H 22.6 H 23.7 H
02/18/25 02/19/25
03:14 04:09
WBC 20.3 H 15.1 H
Please clarify which of the following most accurately describes the status of the patient's infection:
Sepsis due to Klebsiella oxytoca with Empyema-POA
- Systemic manifestations of infection, with 2 or more SIRS criteria which include:
- Fever >100.9 degrees F or hypothermia < 96.8 degrees F
- Leukocytosis - WBC > 12,000 or leukopenia - WBC < 4,000 or > 10% bands
- Tachycardia > 90 beats per minute
- Tachypnea - RR > 20 breaths per minute or PaCO2 , 32mmHg
Source: Merck Manual 2013
Empyema , Without Systemic Illness
Other ( please specify)
Use of terms such as suspected, likely, concern for, or probable (associated with a specific diagnosis that is being evaluated, monitored, or treated as if it exists) are acceptable and can be coded in the inpatient setting, when documented at the
time of discharge.
Thank you,
Jada Waldrop RN
CDI Specialist
[place] [facility]
Please use your independent medical judgment in providing your response.
--- NOTE | 2025-02-19 15:45 | CM ---
Reviewed chart. Met with MrReji and to review discharge plans.. Mr. Benavidez will need IV ABX for six weeks. Reviewed with Mrs. Benavidez regarding IV ABX. Reviewed home infusion companies and she has chosen [facility]. Telephone call
to [facility] to make the referral. Faxed referral to them. She would like to continue with [facility] for his wound care, and therapies. Will need to send PICC Line to [facility]. Will need to see his current
functional level to see if he will have any skilled care needs. Medical work-up in progress. The discharge plan is to return home with his spouse , resumption of [facility] and [facility] when medically stable.
[2025-02-19 17:28] LABS: Glucose - Point of Care 193 mg/dl (70-99)
[2025-02-19] MEDS: ZETIA 10 MG PO (17:40)
[2025-02-19] MEDS: VITAMIN D3 (cholecalciferol) 25 MCG PO (17:40)
[2025-02-19] MEDS: LIPITOR 40 MG PO (17:40)
[2025-02-19] MEDS: DESYREL 75 MG PO (22:07)
[2025-02-19 22:15] LABS: Glucose - Point of Care 235 mg/dl (70-99)
[2025-02-19] MEDS: LANTUS 0.19 UNITS SC (22:16)
--- NOTE | 2025-02-19 23:34 | PTCARENOTE ---
Pt.'s right lateral CT draining SS fluid, set to -20cm H2O suction, no crepitus or air leaks assessed, tidaling present. Tylenol effective for insertion site discomfort. NSR on the monitor. Pt. resting quietly.
[2025-02-20] VITALS (8 sets, daily range): BP systolic 111–130; BP diastolic 55–67; PULSE 59; O2SAT 99; BMI 25.5
[2025-02-20 02:12] LABS: INR 2.64; PT 28.5 Sec (11.4-14.6)
[2025-02-20 02:19] LABS: Hematocrit 29.3 % (39.0-52.0); Hemoglobin 9.7 g/dL (13.0-18.0); Mean Corp Hgb Conc. 33.1 g/dL (33.0-37.0); Mean Corpuscular Volume 80.9 fL (80.0-94.0); Nucleated Red Blood Cells % 0 % (-); Platelet Count 305 10^3/uL (130-400); Red Cell Dist. Width 17.1 % (11.5-14.5)
[2025-02-20 02:25] LABS: Blood Urea Nitrogen 40 mg/dl (9-20); Calcium 8.7 mg/dl (8.4-10.2); Carbon Dioxide 22 mmol/L (22-30); Chloride 104 mmol/L (98-107); Estimated Creatinine Clearance 63 ml/min; Glucose 173 mg/dl (70-99); Potassium 3.5 mmol/L (3.5-5.1); Sodium 135 mmol/L (135-145); eGFR > 60.00
[2025-02-20 06:44] LABS: Glucose - Point of Care 146 mg/dl (70-99)
--- NOTE | 2025-02-20 07:30 | PTCARENOTE ---
Assumed care of pt from prev nsg shift; Pt AAOx3 w/no c/o CP or SOB. Pt reporting pain in sacral wound area. Dressing due to be changed; awaiting pt's bringing in more of pt's collagen dressing from . Pt's VSS w/HR in the 50's & BP 122/62
this AM. Pt is SR w/1st deg AVB on telemetry monitoring. Pt w/R lateral chest tube site w/dressing C/D/I, to wall suction as ordered; no crepitus or air leak present. Pt w/call xiao within reach & plan of care ongoing.
--- NOTE | 2025-02-20 08:11 | W.PN.CT ---
Documented by User: Rehana Hammond PA-C 02/20/25 08:11
Today's Communication / Plan
-
-no issues overnight
-R pleur CT 'B' (placed by IR 02/17) on -20 sxn, put out 100/220 in 12/24 hrs
-Status post TPA/DNase 02/16/25
-Original pleural CT 'A' was dcd 02/19
-Pleural fluid cx with Klebsiella oxytoca -ID switched on 02/19 from Zosyn to Ceftriaxone 2g IV q24h x 6 weeks through 03/30/25.
-for picc line placement once INR is acceptable. INR 2.64 today
-holding Plavix and Coumadin
-encouarge IS, OOB
Assessment / Plan
-
74 year old male Known to CT surgery from prior AVR (On-X mechanical)/CABG in 2008 and redo CABG (08/2024), and recent robotic assisted right decortication and pleurodesis by Dr. Alejandre on 02/04/2025 for entrapped right lower lobe with recurrent
effusions and respiratory failure. Patient was discharged home on 02/11/2025 with right pleural chest tube to Heimlich valve and leg bag gravity drainage. Patient presents to [facility] ED on 02/15/25 with c/o orthopnea and increased chest tube drainage
from clear to bloody. Of note, pt is on both Plavix and Coumadin, INR in ED was 2.46. Both cxr and chest CT obtained on 02/14 yielded (moderate) right pleural effusion.
- s/p Robotic assisted thoracic surgery [RATS], Decortication of the right lower and right middle lobes, Decortication of the chest wall as there was a thick pleural rind, Decortication of the diaphragmatic surface, Extensive loculation and
adhesiolysis- Dr Alejandre-02/04/25
- R Empyema/leukocytosis/ fever - 02/17 New chest tube placed -> Fluid 3000 LDH, cx GNR-Started on Zosyn pending cx results
-Pleural fluid cx with Klebsiella oxytoca.
-ID switched on 02/19 from Zosyn to Ceftriaxone 2g IV q24h x 6 weeks through 03/30/25.
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
- History of AVR (mechanical)/CABG (2008) and redo CABG (08/2024)
- Sacral decub
- Hypertension
- Hyperlipidemia
- Recurrent right-sided pleural effusions
- Diabetes (A1C 6.8)
- Sinus bradycardia
-Acute postop blood loss anemia
-Acute post-op respiratory insufficiency
-Acute postop right basilar pneumothorax
Discussed patient care with: Nursing and Care Team
Subjective
-
Date of Service: February 20, 2025
Objective Data
-
PT 32.4 Sec (11.4-14.6) H 02/19/25 04:09
INR 3.12 02/19/25 04:09
Vital Signs
Vital Signs
Temp Pulse Resp BP Pulse Ox
98.2 F 58 20 111/51 98
02/20/25 01:40 02/19/25 22:12 02/20/25 01:40 02/19/25 22:12 02/20/25 01:40
CT Intake/Output/Weight
02/19/25 02/19/25 02/20/25
06:59 18:59 06:59
Intake Total 50 / 50
Output Total 637 / 1242 1170 / 1570 400 / 1570
Balance -637 / -1242 -1120 / -1520 -400 / -1520
SaO2: 98

Documented by User: Malika [email or web address] 02/20/25 09:35
Assessment / Plan
-
74 year old male Known to CT surgery from prior AVR (On-X mechanical)/CABG in 2008 and redo CABG (08/2024), and recent robotic assisted right decortication and pleurodesis by Dr. Alejandre on 02/04/2025 for entrapped right lower lobe with recurrent
effusions and respiratory failure. Patient was discharged home on 02/11/2025 with right pleural chest tube to Heimlich valve and leg bag gravity drainage. Patient presents to [facility] ED on 02/15/25 with c/o orthopnea and increased chest tube drainage
from clear to bloody. Of note, pt is on both Plavix and Coumadin, INR in ED was 2.46. Both cxr and chest CT obtained on 02/14 yielded (moderate) right pleural effusion.
- s/p Robotic assisted thoracic surgery [RATS], Decortication of the right lower and right middle lobes, Decortication of the chest wall as there was a thick pleural rind, Decortication of the diaphragmatic surface, Extensive loculation and
adhesiolysis- Dr Alejandre-02/04/25
- R Empyema/leukocytosis/ fever Empyema , Without Systemic Illness- 02/17 New chest tube placed -> Fluid 3000 LDH, cx GNR-Started on Zosyn pending cx results
-Pleural fluid cx with Klebsiella oxytoca.
-ID switched on 02/19 from Zosyn to Ceftriaxone 2g IV q24h x 6 weeks through 03/30/25.
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
- History of AVR (mechanical)/CABG (2008) and redo CABG (08/2024)
- Sacral decub
- Hypertension
- Hyperlipidemia
- Recurrent right-sided pleural effusions
- Diabetes (A1C 6.8)
- Sinus bradycardia
-Acute postop blood loss anemia
-Acute post-op respiratory insufficiency
-Acute postop right basilar pneumothorax
[2025-02-20] MEDS: NOVOLOG FLEXPEN-MODERATE RESISTANCE SC (08:33)
[2025-02-20] MEDS: FARXIGA 10 MG PO (10:02)
[2025-02-20] MEDS: MUCINEX 1200 MG PO ×2 (10:02→20:24)
[2025-02-20] MEDS: BUMEX 2 MG PO (10:03)
[2025-02-20] MEDS: KCL 40 MEQ PO (10:03)
[2025-02-20] MEDS: PACERONE 200 MG PO (10:03)
[2025-02-20] MEDS: COLACE 100 MG PO ×2 (10:03→20:24)
[2025-02-20] MEDS: TOPROL XL 25 MG PO (10:03)
[2025-02-20] MEDS: JANUVIA 100 MG PO (10:03)
[2025-02-20] MEDS: THERAGRAN 1 TABLET PO (10:04)
[2025-02-20] MEDS: FLOMAX 0.4 MG PO (10:04)
[2025-02-20] MEDS: ROXICODONE 5 MG PO (10:10)
--- NOTE | 2025-02-20 10:32 | W.PN.PUL.V3 ---
Today's Communication / Plan
-
Monitor chest tube output
Follow chest x-ray
Long-term antibiotics per infectious disease
Assessment
-
75-year-old non-smoking male with a history of hypertension, hyperlipidemia, GERD, diabetes, CAD/aortic stenosis, PAT had redo CABG August 2024 and recent robotic assisted right decortication and pleurodesis by Dr. Alejandre on 02/04/2025 for entrapped
right lower lobe lung with recurrent pleural effusions and respiratory failure discharged on 02/11/2025 and readmitted 02/15/2025 with increasing shortness of breath-pulmonary consulted for pleural effusion and shortness of breath 02/16/2025.
Recurrent right pleural effusion status post repeat thoracentesis
Leukocytosis
Hgtxbb-ektjlpkyhb-rihqvsvext 9.8
Hyperglycemia
Conditions present prior to admission:
Hypertension.
Hyperlipidemia.
CAD/aortic stenosis/CABG 2008 and redo CABG 2024.
BPH.
PAT.
Diabetes/neuropathy.
GERD.
Recurrent right pleural effusion status post right decortication/pleurodesis 02/04/2025 for entrapped lung.
Mechanical AVR /CABG 2008-chronic anticoagulation (Coumadin);
PCI 2024 complicated by spiral dissection of the DE LOS SANTOS subsequent redo CABG 08/2024;
02/04/25 RATS decortication of right lower lobe and right middle lobes, decortication of chest wall due to thick pleura rind
Plan
Respiratory decompensation with mild reaccumulation of right pleural fluid
Supplemental oxygen as needed-assess discharge needs
Nebulizers if needed
Mucolytics
Mucus clearing devices.
Chest x-ray 02/18/25-stable appearance of the right basilar pigtail catheter, decreased size of the right-sided pleural effusion with improved aeration of the right long
Chest x-ray 02/19/25-right pigtail catheter with small pleural effusion noted
Chest x-ray 02/20/2025-increased lucency superimposed right lateral costophrenic angle could represent small loculated pneumothorax, otherwise pleural-parenchymal densities in the right lung base are stable
Follow chest x-ray
CT chest reviewed-moderate amount of persistent pleural fluid with significant air-potentially postoperative changes versus infection.
If pleural fluid collected I would send for routine as well as cultures
Will need to follow radiographically
Monitor original chest tube output-drained approximately 45 mL-removed by CT surgery 02/19/25
Additional chest tube placed by interventional radiology 02/17/25-Drained approximately 150 mL/first 24 hours and 220 mL in the last 24 hours
Status post TPA/DNase 02/16/25
Empiric antibiotics-cefepime initiated initially and now changed to ceftriaxone
Blood cultures negative.
Pleural fluid cultures 02/17/25-positive Klebsiella oxytoca
Last MRSA screen negative.
Infectious disease following-correspondence reviewed.
Pleural fluid cx Klebsiella oxytoca.
Recommend ceftriaxone 2g IV q24h x 6 weeks through 03/30/25.
Follow hemoglobin
Transfuse if needed
Monitor blood sugar
Insulin supplementation as needed
DVT prophylaxis-on Coumadin--currently on hold-elevated at 3.12
Nutrition
Physical therapy
Dr. Jin reviewed with at the bedside On 02/16/25 and again on 02/17/25 as well as son and on 02/18/25, on 02/19/2025 and on 02/20/2025
Diagnostic data:
Chest x-ray 02/15/2025-progressive accumulation of right pleural fluid, no pneumothorax
Chest x-ray 02/16/2025-right chest tube present with moderate right pleural effusion
CT chest 02/15/2025-complex moderate right pleural effusion, numerous foci of gas are seen throughout the fluid likely multiloculated, mild mediastinal adenopathy
CT neck 05/03/21--severe degenerative/arthritic changes noted on the left side where the collar bone and chest bone or sternum meet -Sternoclavicular-which could explain the lump that he feels,, some carotid artery closure was noted and warrants
carotid ultrasounds, incidentally, his epiglottis also had a lot of calcifications which sometimes can be seen with people that have swallowing difficulties-Patient notified-we'll discuss carotid ultrasounds at next visit.�������
CT head angiogram 07/31/2023-no CT evidence for intracranial aneurysm
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
Brain MRA 06/28/21-no hemodynamically significant stenosis, branch occlusion or aneurysm�������
Neck MRA 06/28/21-no significant carotid plaque formation or hemodynamically significant stenosis
Echocardiogram 12/25/19-EF 65-70%�������
Echocardiogram 04/18/2024-EF 45-50%
Nuclear stress test 05/17/21-Systolic function moderately reduced, EF 41%, moderate risk study.
Cardiac catheterization 08/13/2024-successful PCI mid LAD distal stent edge haziness and 80% ISR lesion with reduction in stenosis, successful PCI 90% DE LOS SANTOS/LAD with reduction of stenosis to 0% with subsequent complication by dissection of DE LOS SANTOS graft
after post dilation
PSG around 2006 AHI-36, desaturation stefano 85%, CPAP 7-cm�������
HST-after 80 pound weight loss-05/23/21-ROSE-1.4, desaturation stefano 89%.
Subjective Data
-
Date of Service:
Date of Service: February 20, 2025
Chief Complaint: Pulmonary Follow Up and Dyspnea Follow Up
Subjective:
out of bed, no complaints of worsening shortness of breath, chest pain or abdominal pain, chest tube draining
Review of Systems
General: Other (Per HPI)
Objective Data
Data Reviewed
Vital Signs / I&O:
Vital Signs
Temp Pulse Resp BP Pulse Ox
97.9 F 70 20 122/62 98
02/20/25 06:40 02/20/25 08:00 02/20/25 06:40 02/20/25 06:45 02/20/25 06:45
Intake and Output
02/19/25 02/20/25 02/21/25
06:59 06:59 06:59
Intake Total 50 / 50
Output Total 1242 / 1242 1969 / 1969
Balance -1242 / -1242 -0 / -1919
SaO2: 98
Physical Exam
General: Respiratory Distress (n) and Comfortable
HEENT: Normocephalic, Anicteric and Moist Mucous Membranes
Cardiovascular: Regular Rhythm and Murmur
Respiratory: Crackles ( right base), Rhonchi (. Expiratory), Non-Labored Respirations, Accessory Resp Muscle Use (n) and Stridor
GI: Soft, Non Distended and Non Tender
Neurology: Awake, Alert and No Motor Deficits
Skin: Warm, Good Color, Cyanosis (n) and Jaundice (n)
Labs/Micro/Reports
Lab Data
02/20/25 01:49
02/20/25 01:49
Laboratory Results
02/20/25
01:49
PT 28.5 H
INR 2.64
Microbiology
02/15/25 14:09 Blood/Venous Blood Culture - Preliminary
No Growth in 4 days- Final report to follow
02/15/25 14:12 Blood/Venous Blood Culture - Preliminary
No Growth in 4 days- Final report to follow
02/17/25 15:00 Pleural Fluid Body Fluid Culture - Final
Klebsiella oxytoca
02/17/25 15:00 Pleural Fluid Gram Stain - Final
02/17/25 15:00 Pleural Fluid Fungal Smear - Final
No yeast or fungal elements seen.
02/17/25 15:00 Pleural Fluid Fungal Culture - Preliminary
Culture in progress.
Positive cultures are reported as soon as detected.
Final report to follow in four to five weeks.
02/16/25 03:16 Nose MRSA Screen - Final
No Methicillin Resistant Staphylococcus aureus isolated.
[2025-02-20 11:35] LABS: Glucose - Point of Care 243 mg/dl (70-99)
[2025-02-20] MEDS: ROCEPHIN 2000 MG IV (13:07)
[2025-02-20] MEDS: FLUSH (NSS) 2 FLUSH IV (13:08)
[2025-02-20] MEDS: STERILE WATER FOR INJECTION 20 ML IV (13:08)
[2025-02-20] MEDS: NOVOLOG FLEXPEN-MODERATE RESISTANCE 5 UNITS SC (13:08)
--- NOTE | 2025-02-20 13:12 | W.PN.ID1 ---
Date of Service
Date of Service: February 20, 2025
Today's Communication
Continue ceftriaxone.
Assessment / Plan
# R empyema
# Fever- resolved
# Leukocytosis - improving
- Recent recurrent R pleural effusion s/p OR decortication 02/04/25
- 02/17 New chest tube placed -> Fluid 3000 LDH,
- Pleural fluid cx Klebsiella oxytoca.
- Recommend ceftriaxone 2g IV q24h x 6 weeks through 03/30/25.
- Infusion sheet submitted to transplant case manager on 02/19
- Place PICC.
- Continue with empyema drainage
- Follow wbc.
# Additional Past Medical History:
Diabetes mellitus
Hypertension
Dyslipidemia
Afib
Mechanical aortic valve replacement
CAD history CABG and stents
DE LOS SANTOS dissection during PCI s/p emergent redo CABG SVG to LAD, 08/13/24
CABG complicated by RV laceration by retained sternal wire s/p extensive repair 08/13/24
Right medial leg saphenectomy site infected hematoma s/p I+D 10/2024
Recurrent R pleural effusion s/p decortication 02/04/25
Spinal stenosis
PAT
tremors
Chronic sacral decubitus
Chief Complaint
-: Leukocytosis and Other (empyema)
Vital Signs / Physical Exam
Vital Signs
Vital Signs
Temp Pulse Resp BP Pulse Ox
98.2 F 60 17 126/67 98
02/20/25 11:35 02/20/25 12:00 02/20/25 11:35 02/20/25 11:36 02/20/25 11:36
Physical Exam
Constitutional: No Acute Distress
Pulmonary: Clear (left lung) and Other (right lung, 1 chest tube )
Gastrointestinal: Soft, Non Tender, Non Distended and Normal Bowel Sounds
Genito-Urinary: Negative CVA Tenderness
Extremities: Negative Edema
Neurological: AO x 3
Objective Data
Lab Data
Lab Results
02/20/25 01:49
02/20/25 01:49
PT 28.5 Sec (11.4-14.6) H 02/20/25 01:49
INR 2.64 02/20/25 01:49
Estimated Creat Clear 63 ml/min 02/20/25 01:49
Lactic Acid Cancelled 02/15/25 17:45
Total Bilirubin 1.0 mg/dl (0.2-1.3) 02/15/25 12:35
AST 28 U/L (17-59) 02/15/25 12:35
ALT 24 U/L (0-50) 02/15/25 12:35
Alkaline Phosphatase 146 U/L (38-126) H 02/15/25 12:35
Most recent labs reviewed.
Micro Results:
02/17/25 15:00 Acid Fast Bacilli Smear - Preliminary
Pleural Fluid Acid Fast Bacilli Culture - Preliminary
02/15/25 14:09 Blood Culture - Preliminary
Blood/Venous No Growth in 4 days- Final report to follow
02/15/25 14:12 Blood Culture - Preliminary
Blood/Venous No Growth in 4 days- Final report to follow
02/17/25 15:00 Body Fluid Culture - Final
Pleural Fluid Klebsiella oxytoca
Gram Stain - Final
02/17/25 15:00 Fungal Smear - Final
Pleural Fluid No yeast or fungal elements seen.
Fungal Culture - Preliminary
Culture in progress.
Positive cultures are reported as soon as detected.
Final report to follow in four to five weeks.
02/16/25 03:16 MRSA Screen - Final
Nose No Methicillin Resistant Staphylococcus aureus isolated.
02/17/25 CT chest: MODERATE-SIZED COMPLEX LOCULATED HYDROPNEUMOTHORAX in the inferior right pleural space which appears unchanged in size from 02/15/2025.
Right chest tube remaining in position in the right posterior pleural space. Moderate subpleural airspace consolidation in the right lower lung adjacent to the complex loculated hydropneumothorax (greatest in the posterior basilar segment of the
right lower lobe).
02/15 CT chest: Right chest tube. Complex moderate right pleural effusion. Numerous foci of gas are seen throughout the fluid. Likely multiloculated. There is a small amount of slightly increased attenuation noted within the pleural space, which
could indicate more purulent material or blood products. No anterior or apical pneumothorax. No mediastinal shift.
[2025-02-20 14:49] LABS: Glucose - Point of Care 216 mg/dl (70-99)
--- NOTE | 2025-02-20 16:43 | CM ---
Reviewed chart. Sent PICC line and CXR to [facility] . [facility] can start care on Saturday, February 22, 2025. Telephone call to [facility] to update them on discharge date. Met with Mr. and Mrs. Benavidez to update them
regarding [facility] and [facility]. Updated Medical team. The discharge plan is to return home with his spouse , [facility] and [facility] when medically stable.
[2025-02-20 17:21] LABS: Glucose - Point of Care 179 mg/dl (70-99)
[2025-02-20] MEDS: NOVOLOG FLEXPEN-MODERATE RESISTANCE 1 UNITS SC (18:09)
[2025-02-20] MEDS: COUMADIN 2 MG PO (18:09)
[2025-02-20] MEDS: LIPITOR 40 MG PO (18:10)
[2025-02-20] MEDS: VITAMIN D3 (cholecalciferol) 25 MCG PO (18:10)
[2025-02-20] MEDS: ZETIA 10 MG PO (18:10)
[2025-02-20 21:38] LABS: Glucose - Point of Care 278 mg/dl (70-99)
[2025-02-20] MEDS: LANTUS 0.19 UNITS SC (21:48)
[2025-02-20] MEDS: TYLENOL 650 MG PO (21:48)
[2025-02-20] MEDS: DESYREL 75 MG PO (21:48)
--- NOTE | 2025-02-20 23:39 | PTCARENOTE ---
Patient received at change of shift resting in the bed. SR/SB on telemetry with first degree AVB. Oxygen saturation 96-97% on room air. Previous chest tube sites intact. RUE Double Lumen PICC present, placement still to be confirmed with VAT nurses.
CHG bath completed. PRN acetaminophen administered for pain at previous chest tube sites and PICC line site, see MAR. Plan of care discussed with patient. Call xiao within reach. Care ongoing.
[2025-02-21 03:49] VITALS: BP 110/63
--- NOTE | 2025-02-21 04:03 | W.PN.CT ---
Today's Communication / Plan
-
-no issues overnight
-R pleur CT 'B' dcd on 02/20
-Status post TPA/DNase 02/16/25
-Original pleural CT 'A' was dcd 02/19
-Pleural fluid cx with Klebsiella oxytoca -ID switched on 02/19 from Zosyn to Ceftriaxone 2g IV q24h x 6 weeks through 03/30/25.
-picc line placed 02/20.
-Coumadin for mechanical AVRF. Got 2 mg on 02/20. INR 2.21 today (goal 2-3)
-encouarge IS, OOB
-possible d/c
Assessment / Plan
-
74 year old male Known to CT surgery from prior AVR (On-X mechanical)/CABG in 2008 and redo CABG (08/2024), and recent robotic assisted right decortication and pleurodesis by Dr. Alejandre on 02/04/2025 for entrapped right lower lobe with recurrent
effusions and respiratory failure. Patient was discharged home on 02/11/2025 with right pleural chest tube to Heimlich valve and leg bag gravity drainage. Patient presents to [facility] ED on 02/15/25 with c/o orthopnea and increased chest tube drainage
from clear to bloody. Of note, pt is on both Plavix and Coumadin, INR in ED was 2.46. Both cxr and chest CT obtained on 02/14 yielded (moderate) right pleural effusion.
- s/p Robotic assisted thoracic surgery [RATS], Decortication of the right lower and right middle lobes, Decortication of the chest wall as there was a thick pleural rind, Decortication of the diaphragmatic surface, Extensive loculation and
adhesiolysis- Dr Alejandre-02/04/25
- R Empyema/leukocytosis/ fever Empyema , Without Systemic Illness- 02/17 New chest tube placed -> Fluid 3000 LDH, cx GNR-Started on Zosyn pending cx results
-Pleural fluid cx with Klebsiella oxytoca.
-ID switched on 8/21 from Zosyn to Ceftriaxone 2g IV q24h x 6 weeks through 03/30/25.
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
- History of AVR (mechanical)/CABG (2008) and redo CABG (08/2024)
- Sacral decub
- Hypertension
- Hyperlipidemia
- Recurrent right-sided pleural effusions
- Diabetes (A1C 6.8)
- Sinus bradycardia
-Acute postop blood loss anemia
-Acute post-op respiratory insufficiency
-Acute postop right basilar pneumothorax
Discussed patient care with: Nursing and Care Team
Subjective
-
Date of Service: February 21, 2025
Objective Data
-
Lab Results
02/20/25 01:49
PT 28.5 Sec (11.4-14.6) H 02/20/25 01:49
INR 2.64 02/20/25 01:49
Vital Signs
Vital Signs
Temp Pulse Resp BP Pulse Ox
97.9 F 52 16 119/67 97
02/21/25 03:49 02/21/25 03:00 02/21/25 03:49 02/20/25 22:54 02/21/25 03:[address]
CT Intake/Output/Weight
02/20/25 02/20/25 02/21/25
06:59 18:59 06:59
Intake Total 720 / 720
Output Total 800 / 1970 200 / 900 700 / 900
Balance -800 / -1920 520 / -180 -700 / -180
SaO2: 97
Physical Exam
-
General: AOx3
Cardiovascular: Regular rate & rhythm, No Murmurs and No Rub
Respiratory: Rhonchi and Decreased Breath Sounds
Sternum: Stable
Incision: Clean, Dry and Dressing Intact
Extremities: No Edema
Data Reviewed
-
Lab Results: Results Reviewed
Medications: Active Meds Reviewed
Chest X-Ray: Report Reviewed and Image Reviewed
ECG: Report Reviewed and Image Reviewed
[2025-02-21 04:54] LABS: INR 2.21; PT 24.6 Sec (11.4-14.6)
[2025-02-21 05:07] LABS: Blood Urea Nitrogen 32 mg/dl (9-20); Calcium 8.5 mg/dl (8.4-10.2); Carbon Dioxide 26 mmol/L (22-30); Chloride 103 mmol/L (98-107); Estimated Creatinine Clearance 69 ml/min; Glucose 162 mg/dl (70-99); Potassium 3.6 mmol/L (3.5-5.1); Sodium 135 mmol/L (135-145); eGFR > 60.00
[2025-02-21 06:44] VITALS: BP 114/48
[2025-02-21] MEDS: KCL 40 MEQ PO (07:40)
[2025-02-21] MEDS: NOVOLOG FLEXPEN-MODERATE RESISTANCE 3 UNITS SC ×2 (07:40→13:12)
[2025-02-21 07:47] LABS: Glucose - Point of Care 201 mg/dl (70-99)
--- NOTE | 2025-02-21 07:48 | W.PN.PUL3 ---
Today's Communication / Plan
-
Chest tube has been removed
Objectively and subjectively improved
Antibiotics per ID, discharged on antibiotics through PICC line
Follow-up chest x-ray, follow-up with CT surgery
Disposition efforts
Assessment
-
75-year-old non-smoking male with a history of hypertension, hyperlipidemia, GERD, diabetes, CAD/aortic stenosis, PAT had redo CABG August 2024 and recent robotic assisted right decortication and pleurodesis by Dr. Alejandre on 02/04/2025 for entrapped
right lower lobe lung with recurrent pleural effusions and respiratory failure discharged on 02/11/2025 and readmitted 02/15/2025 with increasing shortness of breath-pulmonary consulted for pleural effusion and shortness of breath 02/16/2025.
Recurrent right pleural effusion status post repeat thoracentesis
Leukocytosis
Iavjkf-hofmkreenj-mmwdmiednh 9.8
Hyperglycemia
Conditions present prior to admission:
Hypertension.
Hyperlipidemia.
CAD/aortic stenosis/CABG 2008 and redo CABG 2024.
BPH.
PAT.
Diabetes/neuropathy.
GERD.
Recurrent right pleural effusion status post right decortication/pleurodesis 02/04/2025 for entrapped lung.
Mechanical AVR /CABG 2008-chronic anticoagulation (Coumadin);
PCI 2024 complicated by spiral dissection of the DE LOS SANTOS subsequent redo CABG 08/2024;
02/04/25 RATS decortication of right lower lobe and right middle lobes, decortication of chest wall due to thick pleura rind
Plan/recommendations
At this time, patient appears to be comfortable, without significant symptoms
Chest tube removed
CXR 02/21/2025 mild right pleural parenchymal process, minimal at best
Remains on ceftriaxone at this time
Moving forward
Plan for disposition, home antibiotics per infectious disease
Follow-up imaging in the next few weeks, follow-up with CT surgery
Patient is welcome to follow-up with pulmonary depending on clinical course
DVT prophylaxis-on Coumadin
Nutrition
Physical therapy
Disposition efforts
Diagnostic data:
Chest x-ray 02/15/2025-progressive accumulation of right pleural fluid, no pneumothorax
Chest x-ray 02/16/2025-right chest tube present with moderate right pleural effusion
CT chest 02/15/2025-complex moderate right pleural effusion, numerous foci of gas are seen throughout the fluid likely multiloculated, mild mediastinal adenopathy
CT neck 05/03/21--severe degenerative/arthritic changes noted on the left side where the collar bone and chest bone or sternum meet -Sternoclavicular-which could explain the lump that he feels,, some carotid artery closure was noted and warrants
carotid ultrasounds, incidentally, his epiglottis also had a lot of calcifications which sometimes can be seen with people that have swallowing difficulties-Patient notified-we'll discuss carotid ultrasounds at next visit.�������
CT head angiogram 07/31/2023-no CT evidence for intracranial aneurysm
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
Brain MRA 06/28/21-no hemodynamically significant stenosis, branch occlusion or aneurysm�������
Neck MRA 06/28/21-no significant carotid plaque formation or hemodynamically significant stenosis
Echocardiogram 12/25/19-EF 65-70%�������
Echocardiogram 04/18/2024-EF 45-50%
Nuclear stress test 05/17/21-Systolic function moderately reduced, EF 41%, moderate risk study.
Cardiac catheterization 08/13/2024-successful PCI mid LAD distal stent edge haziness and 80% ISR lesion with reduction in stenosis, successful PCI 90% DE LOS SANTOS/LAD with reduction of stenosis to 0% with subsequent complication by dissection of DE LOS SANTOS graft
after post dilation
PSG around 2006 AHI-36, desaturation stefano 85%, CPAP 7-cm�������
HST-after 80 pound weight loss-05/23/21-ROSE-1.4, desaturation stefano 89%.
Subjective Data
-
Date of Service:
Date of Service: February 21, 2025
Chief Complaint: Pulmonary Follow Up and Dyspnea Follow Up
Subjective:
Patient seen earlier this morning. Late entry. Patient feels well. Denies shortness of breath. Has mild cough. Denies significant chest pain or pleurisy, nausea, abdominal pain
Objective Data
Data Reviewed
Vital Signs / I&O / Oxygen:
Vital Signs
Temp Pulse Resp BP Pulse Ox
97 F 54 18 114/48 97
02/21/25 06:44 02/21/25 07:00 02/21/25 06:44 02/21/25 06:44 02/21/25 06:44
Intake and Output
02/20/25 02/21/25 02/22/25
06:59 06:59 06:59
Intake Total 50 / 50 720 / 720
Output Total 1970 / 1970 900 / 900
Balance -1920 / -1920 -180 / -180
SaO2 97
Physical Exam
General: Comfortable
HEENT: Normocephalic, Anicteric and Moist Mucous Membranes
Cardiovascular: Regular Rhythm and Murmur
Respiratory: Crackles ( right base), Rhonchi (n), Non-Labored Respirations, Stridor and Other (Slight decreased right base)
GI: Soft, Non Distended and Non Tender
Neurology: Awake, Alert and No Motor Deficits
Skin: Warm, Good Color, Cyanosis (n) and Jaundice (n)
Labs/Micro/Reports
Lab Data
02/20/25 01:49
02/21/25 04:32
Laboratory Results
02/21/25
04:32
PT 24.6 H
INR 2.21
Microbiology
02/15/25 14:09 Blood/Venous Blood Culture - Final
No Growth - Final Report
02/15/25 14:12 Blood/Venous Blood Culture - Final
No Growth - Final Report
02/17/25 15:00 Pleural Fluid Acid Fast Bacilli Smear - Preliminary
02/17/25 15:00 Pleural Fluid Acid Fast Bacilli Culture - Preliminary
02/17/25 15:00 Pleural Fluid Body Fluid Culture - Final
Klebsiella oxytoca
02/17/25 15:00 Pleural Fluid Gram Stain - Final
02/17/25 15:00 Pleural Fluid Fungal Smear - Final
No yeast or fungal elements seen.
02/17/25 15:00 Pleural Fluid Fungal Culture - Preliminary
Culture in progress.
Positive cultures are reported as soon as detected.
Final report to follow in four to five weeks.
[2025-02-21] MEDS: JANUVIA 100 MG PO (09:43)
[2025-02-21] MEDS: MUCINEX 1200 MG PO (09:43)
[2025-02-21] MEDS: TOPROL XL 25 MG PO (09:43)
[2025-02-21] MEDS: PACERONE 200 MG PO (09:43)
[2025-02-21] MEDS: THERAGRAN 1 TABLET PO (09:44)
[2025-02-21] MEDS: TYLENOL 650 MG PO (09:44)
[2025-02-21] MEDS: FLOMAX 0.4 MG PO (09:44)
[2025-02-21] MEDS: BUMEX 2 MG PO (09:45)
[2025-02-21] MEDS: COLACE 100 MG PO (09:45)
[2025-02-21] MEDS: FARXIGA 10 MG PO (09:46)
--- NOTE | 2025-02-21 10:06 | W.PN.ID1 ---
Date of Service
Date of Service: February 21, 2025
Today's Communication
Continue ceftriaxone.
Assessment / Plan
# R empyema
# Fever- resolved
# Leukocytosis - improving
- Recent recurrent R pleural effusion s/p OR decortication 02/04/25
- 02/17 New chest tube placed -> Fluid 3000 LDH,
- Pleural fluid cx Klebsiella oxytoca.
- Both chest tubes have been dc'd.
- Continue ceftriaxone 2g IV q24h x 6 weeks through 03/30/25.
- Infusion sheet submitted to [facility] on 02/19
- PICC in place
- Follow wbc.
# Additional Past Medical History:
Diabetes mellitus
Hypertension
Dyslipidemia
Afib
Mechanical aortic valve replacement on Coumadin
CAD history CABG and stents
DE LOS SANTOS dissection during PCI s/p emergent redo CABG SVG to LAD, 08/13/24
CABG complicated by RV laceration by retained sternal wire s/p extensive repair 08/13/24
Right medial leg saphenectomy site infected hematoma s/p I+D 10/2024
Recurrent R pleural effusion s/p decortication 02/04/25
Spinal stenosis
PAT
tremors
Chronic sacral decubitus
Chief Complaint
-: Leukocytosis and Other (empyema)
Subjective / Review of Systems
No new complaints. Both chest tubes removed.
Vital Signs / Physical Exam
Vital Signs
Vital Signs
Temp Pulse Resp BP Pulse Ox
97 F 54 18 114/48 97
02/21/25 06:44 02/21/25 07:00 02/21/25 06:44 02/21/25 06:44 02/21/25 06:44
Physical Exam
Constitutional: No Acute Distress and Comfortable
Cardiovascular: Regular Rate and S1/S2
Pulmonary: Coarse (right base)
Gastrointestinal: Non Tender, Non Distended and Normal Bowel Sounds
Extremities: Negative Edema
Neurological: AO x 3
Lines: PICC (RUE no erythema)
Objective Data
Lab Data
Lab Results
02/20/25 01:49
02/21/25 04:32
PT 24.6 Sec (11.4-14.6) H 02/21/25 04:32
INR 2.21 02/21/25 04:32
Estimated Creat Clear 69 ml/min 02/21/25 04:32
Lactic Acid Cancelled 02/15/25 17:45
Total Bilirubin 1.0 mg/dl (0.2-1.3) 02/15/25 12:35
AST 28 U/L (17-59) 02/15/25 12:35
ALT 24 U/L (0-50) 02/15/25 12:35
Alkaline Phosphatase 146 U/L (38-126) H 02/15/25 12:35
Most recent labs reviewed.
Micro Results:
02/15/25 14:09 Blood Culture - Final
Blood/Venous No Growth - Final Report
02/15/25 14:12 Blood Culture - Final
Blood/Venous No Growth - Final Report
02/17/25 15:00 Acid Fast Bacilli Smear - Preliminary
Pleural Fluid Acid Fast Bacilli Culture - Preliminary
02/17/25 15:00 Body Fluid Culture - Final
Pleural Fluid Klebsiella oxytoca
Gram Stain - Final
02/17/25 15:00 Fungal Smear - Final
Pleural Fluid No yeast or fungal elements seen.
Fungal Culture - Preliminary
Culture in progress.
Positive cultures are reported as soon as detected.
Final report to follow in four to five weeks.
02/16/25 03:16 MRSA Screen - Final
Nose No Methicillin Resistant Staphylococcus aureus isolated.
02/17/25 CT chest: MODERATE-SIZED COMPLEX LOCULATED HYDROPNEUMOTHORAX in the inferior right pleural space which appears unchanged in size from 02/15/2025.
Right chest tube remaining in position in the right posterior pleural space. Moderate subpleural airspace consolidation in the right lower lung adjacent to the complex loculated hydropneumothorax (greatest in the posterior basilar segment of the
right lower lobe).
02/15 CT chest: Right chest tube. Complex moderate right pleural effusion. Numerous foci of gas are seen throughout the fluid. Likely multiloculated. There is a small amount of slightly increased attenuation noted within the pleural space, which
could indicate more purulent material or blood products. No anterior or apical pneumothorax. No mediastinal shift.
--- NOTE | 2025-02-21 10:53 | W.DCSUMMARY ---
Discharge Summary
Discharge Data
Date of Admission: 02/15/25
Date of Discharge: 02/21/25
-
Pending Results: Yes
Additional Pending Results:
INR to be drawn on Sunday02/23/25 and referred to his prior coumadin management physician
Hospital Course
Primary care physician:
Outpatient fondant puff maker:
Inpatient consultants:
Procedures:
Robotic assisted thoracic surgery [RATS], Decortication of the right lower and right middle lobes, Decortication of the chest wall as there was a thick pleural rind, Decortication of the diaphragmatic surface, Extensive loculation and adhesiolysis-
Dr Alejandre-02/04/25
Primary Diagnosis:
1. - right Empyema/leukocytosis/ fever Empyema , Without Systemic Illness- 02/17 New chest tube placed -> Fluid 3000 LDH, gram stain with gram negative rods-Started on Zosyn pending culture results
-Pleural fluid culture with Klebsiella oxytoca.
-Infectious disease switched on 02/19 from Zosyn to Ceftriaxone 2g IV daily for 6 weeks through 03/30/25.
Secondary Diagnoses:
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
- History of aortic valve replacement (On-X mechanical)/CABG (2008) and redo CABG (08/2024)
- Sacral wound
- Hypertension
- Hyperlipidemia
- Recurrent right-sided pleural effusions
- Diabetes (A1C 6.8)
- Sinus bradycardia
-Acute postop blood loss anemia
-Acute post-op respiratory insufficiency
-Acute postop right basilar pneumothorax
HPI: The patient is well-known to us having undergone emergent redo operation with CABG in August of this year secondary to an LAD dissection. Following this the patient developed a trapped right lung with empyema and underwent robotic assisted
decortication by Dr. Alejandre on 02/04/2025. Patient was discharged home on 02/11/2025. He presented to the ED on 02/15/2025 with complaints of shortness of breath and inability to lie flat. He was subsequently for further management.
Hospital course: Patient was admitted for further evaluation of his right pleural effusion. Blood cultures were sent. Noncontrast CT of the chest shows empyema which is known. He underwent evaluation by infectious disease as well as wound care
for a sacral wound which was present on admission. Empiric cefepime was started, pulmonary medicine was consulted, interventional radiology was consulted for intrapleural lytic therapy. Following lytic therapy repeat CT of the chest revealed a
mostly unchanged fluid collection. Cultures from the pleural fluid grew gram-negative bacilli. ID changed his antibiotics to Zosyn. Final cultures revealed Klebsiella oxytoca and the patient was subsequently transitioned to Rocephin and a PICC
line was placed. He was ultimately set up for discharge home with IV antibiotics. Per infectious disease he will continue IV Rocephin until 03/30/2025.
Home medication changes: started on IV Rocephin per ID for 6 weeks, ending on 03/30/25. INR seems therapeutic on a lower dose of coumadin. Changed to 2.5 mg daily or as directed by his monitoring physician. INR will be checked and referred on Sunday.
Discharge Plan
-
Patient Disposition: Home (Routine Discharge)
Discharge Diagnosis/Procedures: - s/p Robotic assisted thoracic surgery [RATS], Decortication of the right lower and right middle lobes, Decortication of the chest wall as there was a thick pleural rind, Decortication of the diaphragmatic surface,
Extensive loculation and adhesiolysis- Dr Alejandre-02/04/25
- right Empyema/leukocytosis/ fever Empyema , Without Systemic Illness- 02/17 New chest tube placed -> Fluid 3000 LDH, gram stain with gram negative rods-Started on Zosyn pending culture results
-Pleural fluid culture with Klebsiella oxytoca.
-Infectious disease switched on 02/19 from Zosyn to Ceftriaxone 2g IV daily for 6 weeks through 03/30/25.
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
- History of aortic valve replacement (On-X mechanical)/CABG (2008) and redo CABG (08/2024)
- Sacral wound
- Hypertension
- Hyperlipidemia
- Recurrent right-sided pleural effusions
- Diabetes (A1C 6.8)
- Sinus bradycardia
-Acute postop blood loss anemia
-Acute post-op respiratory insufficiency
-Acute postop right basilar pneumothorax
Diet: Low Fat, Low Cholesterol and Low Sodium
Activity: No strenuous activity
Driving Restrictions: Not until seen by your Dr
Bathing Restrictions: OK to Shower
Activity Restrictions/Additional Instructions:
Wound Care Instructions
sacrum: clean with saline, skin prep periwound, Moistened collagen with saline, apply to base of wound followed by folded 2x2 gauze and sacral silicone foam. Can reuse foam if not soiled and change inner dressing over sacrum daily.
mineral oil to legs daily.
Offloading cushion when sitting with frequent shifts in position
Protein supplements and protein in diet.
Follow up at wound care center call for an appointment.
Referrals:
[facility] [Other]
Referral Note: Fax number is [phone]
[facility] [Outside]
Kyrie Asher MD [Family Provider, Family Practice]
Prescriptions:
New
ceftriaxone 2 gram Recon Soln
2,000 mg IV Q24H 37 Days Qty: 37 0RF
Continued
cholecalciferol (vitamin D3) 1,000 UNITS tablet
1,000 units PO QPM
fluticasone propionate 50 mcg/actuation Irwin,Suspension
2 spray INTRANASAL BIDPRN PRN (Reason: allergies)
acetaminophen 500 mg Tablet
1,000 mg PO DAILYPRN PRN (Reason: mild pain)
insulin aspart U-100 100 unit/mL (3 mL) Insulin Pen
1 sliding scale dose SC DIRECTED
insulin glargine [Lantus Solostar U-100 Insulin] 100 unit/mL (3 mL) Insulin Pen
19 unit SC QHS
trazodone 50 mg tablet
75 mg PO HS
Patient Comments:
takes 1 and 1/2 tabs
metoprolol succinate 25 mg tablet extended release 24 hr
25 mg PO DAILY
atorvastatin 80 mg Tablet
40 mg PO QPM
nitroglycerin 0.4 mg Tablet, Sublingual
0.4 mg SUBLINGUAL Q5-15M PRN (Reason: chest pain)
oxycodone 5 mg Tablet
2.5 mg PO Q4HPRN PRN (Reason: mild pain) Qty: 10 0RF
therapeutic multivitamin Tablet
1 tab PO DAILY
warfarin 5 mg tablet
2.5 mg PO THFRSA@1800
ipratropium bromide 42 mcg (0.06 %) spray,non-aerosol
2 spray INTRANASAL Q8HPRN PRN (Reason: runny nose)
docusate sodium 100 mg Capsule
100 mg PO BID 30 Days Qty: 60 0RF
Januvia 100 mg Tablet
100 mg PO DAILY 30 Days Qty: 30 0RF
amiodarone 200 mg Tablet
200 mg PO DAILY 30 Days Qty: 30 0RF
clopidogrel 75 mg Tablet
75 mg PO DAILY Qty: 30 0RF
tamsulosin 0.4 mg Capsule
0.4 mg PO DAILY 30 Days Qty: 30 0RF
ezetimibe [Zetia] 10 mg Tablet
10 mg PO QPM 30 Days Qty: 30 0RF
dapagliflozin propanediol 10 mg Tablet
10 mg PO DAILY 30 Days Qty: 30 0RF
bumetanide 2 mg Tablet
2 mg PO DAILY 30 Days Qty: 30 0RF
gabapentin 100 mg Capsule
100 mg PO TID 30 Days Qty: 90 0RF
Changed
warfarin [Jantoven] 5 mg tablet
2.5 mg PO SUMOTUWE@1800 Qty: 0 0RF
Discharge Orders:
Discharge Patient (As Directed); Ordered 02/21/25
Ordered By: Kurt Delgado
Care Plan Goals
Care Plan Goals:
Problem: Readiness for enhanced knowledge related to diagnosis and treatment plan
Goal: Understand your diagnosis and treatment plan needs, including medications if applicable.
Instructions: Know your diagnosis, underlying causes and treatment plan options, including medications if applicable. Consult with your health care team to learn about your diagnosis and treatment plan, including medications if applicable.
Discharge Date and Time
Print Language: POLISH
[2025-02-21 11:41] VITALS: BP 127/66
[2025-02-21 11:42] VITALS: BP 127/66
[2025-02-21 11:45] LABS: Glucose - Point of Care 203 mg/dl (70-99)
[2025-02-21] MEDS: STERILE WATER FOR INJECTION 20 ML IV (13:13)
[2025-02-21] MEDS: ROCEPHIN 2000 MG IV (13:13)
[2025-02-21] MEDS: FLUSH (NSS) 2 FLUSH IV (13:13)
--- NOTE | 2025-02-21 13:20 | CM ---
Received vm from [facility] with [facility] inquiring if patient was to be discharged. CM left for Nicole ([phone]) that patient is for discharge today.
== END 2025-02-21 15:03 | disposition home health service (06) | DRG 177 ==
LOC: IVU 16:57
PROVIDERS: Nurse Practitioner; Physician Assistant Medical; Radiology Diagnostic Radiology; ADMITTING PHYSICIAN Thoracic Surgery (Cardiothoracic Vascular Surgery); CONSULT PHYSICIAN Internal Medicine Critical Care Medicine; CONSULT PHYSICIAN Internal Medicine Infectious Disease; EMERGENCY PHYSICIAN Student in an Organized Health Care Education/Training Program; FAMILY PHYSICIAN Family Medicine
PROC: 02HV33Z Insertion of Infusion Device into Superior Vena Cava, Percutaneous Approach (ICD-10-PCS; 2025-02-20)
DX: J86.9 Pyothorax without fistula (principal); J96.90 Respiratory failure, unspecified, unspecified whether with hypoxia or hypercapnia; L89.154 Pressure ulcer of sacral region, stage 4; J90 Pleural effusion, not elsewhere classified; D62 Acute posthemorrhagic anemia; J93.9 Pneumothorax, unspecified; B96.1 Klebsiella pneumoniae [K. pneumoniae] as the cause of diseases classified elsewhere; Z95.2 Presence of prosthetic heart valve; I10 Essential (primary) hypertension; E11.40 Type 2 diabetes mellitus with diabetic neuropathy, unspecified; E11.65 Type 2 diabetes mellitus with hyperglycemia; E78.00 Pure hypercholesterolemia, unspecified; G47.00 Insomnia, unspecified; G47.33 Obstructive sleep apnea (adult) (pediatric); I25.10 Atherosclerotic heart disease of native coronary artery without angina pectoris; I48.91 Unspecified atrial fibrillation; K21.9 Gastro-esophageal reflux disease without esophagitis; N40.0 Benign prostatic hyperplasia without lower urinary tract symptoms; Z79.01 Long term (current) use of anticoagulants; Z79.4 Long term (current) use of insulin; Z79.84 Long term (current) use of oral hypoglycemic drugs; Z95.1 Presence of aortocoronary bypass graft; Z95.5 Presence of coronary angioplasty implant and graft
CPT/HCPCS: 32557; 32561; 71045; 71046; 71250; 80048; 80053; 81003; 81015; 82150; 82945; 82962; 83605; 83615; 83735; 83986; 84157; 84478; 85025; 85027; 85610; 87015; 87040; 87070; 87077; 87102; 87116; 87186; 87205; 87206; 88112; 88305; 89051; 93005; 97162; 97166; 99152; 99153; 99285; C1729; C1769

== ENCOUNTER → 2025-02-25 15:25 | Outpatient (REF) | payer OTHER, SELFPAY | LOC: RAD 15:25 | PROVIDERS: ATTENDING PHYSICIAN Nurse Practitioner Acute Care; FAMILY PHYSICIAN Family Medicine | DX: J90 Pleural effusion, not elsewhere classified (principal) | CPT/HCPCS: 71046 ==

== ENCOUNTER 2025-02-26 15:27 | Inpatient (IN) | payer OTHER, SELFPAY ==
[2025-02-26] VITALS (9 sets, daily range): BP systolic 73–130; BP diastolic 64–79; BMI 26.7
[2025-02-26 09:49] LABS: Hematocrit 31.7 % (39.0-52.0); Hemoglobin 10.0 g/dL (13.0-18.0); Mean Corp Hgb Conc. 31.5 g/dL (33.0-37.0); Mean Corpuscular Volume 82.8 fL (80.0-94.0); Nucleated Red Blood Cells % 0 % (-); Platelet Count 459 10^3/uL (130-400); Red Cell Dist. Width 17.1 % (11.5-14.5)
[2025-02-26] MEDS: ZOFRAN 4 MG IV (09:54)
--- NOTE | 2025-02-26 09:54 | ED.GENMED ---
History of Present Illness
General
Chief Complaint: Breathing Problem
Source: patient
Exam Limitations: none
Time Seen by Provider: 02/26/25 09:29
History of Present Illness
History of Present Illness:
75-year-old male presents with shortness of breath increased work of breathing and hemoptysis. He is on Coumadin. Earlier this month, he had robotic assisted thoracic surgery and decortication of the right lung. He was found postoperatively to
have an empyema. A chest tube was placed at that time. He has been on ceftriaxone since discharge last week. He denies recent fever. He notes pain in the center of his chest with coughing but the pain is not pleuritic. He denies abdominal pain.
No other complaints
Past History
Past History
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
ED Past Surgical History: Cardiac (CABG+Mechanical aortic valve replacement 2008) and Orthopedic
Social History
Tobacco: Non-smoker
Alcohol: None
Personal:
Living: with family
Employment: Employed
Family History
Family History: CAD
Phy Exam
Physical Exam
Physical Exam:
General: Well-developed male with increased work of breathing
HEENT normocephalic atraumatic
Heart: Regular rate and rhythm
Lungs: Rales noted at the base
Abdomen is soft nontender
Extremities: No cyanosis or edema
Skin: No rash
Scores
Heart Failure Risk
Heart Failure Risk Score: Not Applicable
Course
Orders/Labs/Results
Orders:
Orders
02/26/25
Electrocardiogram (*1) Stat
Reason for Study: Chest Pain
02/26/25 09:30
CR Chest Portable - 1 View Urgent
Comment:
Reason For Exam: sob
Reason Study Needs to be Portable: Patient Unstable
02/26/25 09:34
Complete Blood Count/With Diff Urgent
Comprehensive Metabolic Panel Urgent
NT-proBNP Urgent
Prothrombin Time Urgent
02/26/25 09:50
Ondansetron Injectable [Zofran] 4 mg IV NOW STA
02/26/25 11:45
CT Chest W/o Iv Contrast Urgent
Comment:
Reason For Exam: sob
02/26/25 12:42
Code Status As Directed
Resuscitation Status: Full Code
Docusate W/Senna [Senokot-S] 1 tablet PO BIDPRN PRN
Intake/ Output As Directed
Frequency: q12h
Weight As Directed
Frequency: Daily
Pulse Ox/spot Check [RESP] Routine
Quantity: 1
Rx Incentive Spirometry [RESP] Routine
Frequency: q1h while awake
# of times per hour: 10
02/26/25 12:44
Activity As Directed
Activity Level: Ambulate
Vital Signs As Directed
Frequency: q4h
02/26/25 12:47
Bisacodyl [Dulcolax] 10 mg RECTAL [id number] PRN
Mag Hydrox/Al Hydrox/Simeth [Maalox] 30 ml PO Q6HPRN PRN
Ondansetron Injectable [Zofran] 4 mg IV Q6HPRN PRN
Oxycodone [Roxicodone] 5 mg PO Q4HPRN PRN
Polyethylene Glycol Powder [Miralax] 17 grams PO DAILYPRN PRN
02/26/25 12:49
IRAD CONSULT Routine
Consulting Provider: Jeremy Valenzuela
Was physician already notified: Yes
Procedure being ordered, including laterality if applicable: right pleural chest tube
Acknowledgement that appropriate orders are entered: Yes
02/26/25 12:58
PULMONARY CONSULT Routine
Consulting Provider: Kourtney Roldan
Was physician already notified: Yes
Reason for consult: poss R PNA on recurfrent effusion/empyema
02/26/25 13:13
Acetaminophen [Tylenol] 1,000 mg PO DAILYPRN PRN mild pain
Guaifenesin [Mucinex] 600 mg PO BIDPRN PRN COUGH
Oxycodone [Roxicodone] 5 mg PO TIDPRN PRN mild pain
02/26/25 13:17
CefTRIAXone [Rocephin] 2,000 mg IV NOW STA
02/26/25 13:23
Dextrose 50%-Water [Dextrose 50% Syringe] 12.5 grams IV [id number] PRN
Glucagon [GlucaGen] 1 mg IM PRN PRN
Bedside Glucose Monitoring As Directed
Frequency: AC&HS
Additional Instructions:: Change to q6h if pt on TPN, tube feeding or not eating
02/26/25 13:32
Sterile Water [Sterile Water For Injection] 20 ml IV NOW STA
02/26/25 13:45
Admit Patient As Directed
Co-Sign Provider:
Level of Care: Inpatient admission
Assign to:: IVU
Physician / Group: Mihir Delatorre
Diagnosis: recurren tright pleural effusion
Reason for Hospitalization: recurrent pleural effusion
Expected length of stay greater than two midnights?: Yes
ELOS- Estimated Length of Stay in days: 4
I certify the patient meets the requirements for IP care: Yes
PRN Pain Medication Management As Directed
May give lesser potent ordered pain med per pt: Yes
preference::
Protocol:: Medication orders for pain may be administered in a
manner that supports deferring to patient preference
when the pt is:
- Requesting an ordered lesser potent pain medication.
Least to most potent pain medications are defined
as: acetaminophen < NSAID < tramadol < opioids
(morphine, oxycodone, hydromorphone).
- Requesting a lesser dose of the same medication IF
ORDERED.
- Requesting a less intrusive route of administration
if both routes are prescribed by the provider (PO <
IV).
02/26/25 13:54
PRN Pain Medication Management As Directed
May give lesser potent ordered pain med per pt: Yes
preference::
Protocol:: Medication orders for pain may be administered in a
manner that supports deferring to patient preference
when the pt is:
- Requesting an ordered lesser potent pain medication.
Least to most potent pain medications are defined
as: acetaminophen < NSAID < tramadol < opioids
(morphine, oxycodone, hydromorphone).
- Requesting a lesser dose of the same medication IF
ORDERED.
- Requesting a less intrusive route of administration
if both routes are prescribed by the provider (PO <
IV).
02/26/25 14:03
PRN Pain Medication Management As Directed
May give lesser potent ordered pain med per pt: Yes
preference::
Protocol:: Medication orders for pain may be administered in a
manner that supports deferring to patient preference
when the pt is:
- Requesting an ordered lesser potent pain medication.
Least to most potent pain medications are defined
as: acetaminophen < NSAID < tramadol < opioids
(morphine, oxycodone, hydromorphone).
- Requesting a lesser dose of the same medication IF
ORDERED.
- Requesting a less intrusive route of administration
if both routes are prescribed by the provider (PO <
IV).
02/26/25 14:30
WOUND/OSTOMY CONSULT Routine
Reason for Consult: chronic sacral decub
Acapella [Rx Pep / Acapela] [RESP] DAILY
02/26/25 14:52
Fentanyl Citrate/Pf [Sublimaze] 100 mcg .ROUTE .STK-MED ONE
Midazolam HCl [Versed] 2 mg .ROUTE .STK-MED ONE
02/26/25 Dinner
2000 calorie (17 carb) Diabetic
At Your Request: Full Participation
Lidocaine 2% [Xylocaine 2% Mdv] 20 ml .ROUTE .STK-MED ONE
02/26/25 15:01
Speech Therapy Eval & Treat Routine
02/26/25 16:00
Acetaminophen [Tylenol] 650 mg PO Q4HWA
Gabapentin [Neurontin] 100 mg PO TID
02/26/25 16:10
Body Fluid Amylase Routine
Fluid Source: Pleural
Date Specimen was Collected: 02/26/25
Time Specimen was Collected: 15:15
Body Fluid Cell Count Routine
What is the Body Fluid: pleural fluid
Date Specimen was Collected: 02/26/25
Time Specimen was Collected: 15:15
Comment: post procedure
Body Fluid Glucose Routine
Fluid Source: Pleural
Date Specimen was Collected: 02/26/25
Time Specimen was Collected: 15:15
Body Fluid LDH Routine
Fluid Source: Pleural
Date Specimen was Collected: 02/26/25
Time Specimen was Collected: 15:15
Body Fluid Protein Routine
Fluid Source: Pleural
Date Specimen was Collected: 02/26/25
Time Specimen was Collected: 15:15
Body Fluid Triglycerides Routine
Fluid Source: Pleural
Date Specimen was Collected: 02/26/25
Time Specimen was Collected: 15:15
Body Fluid pH Routine
Fluid Source: Pleural
Date Specimen was Collected: 02/26/25
Time Specimen was Collected: 15:15
02/26/25 16:11
Acid Fast Culture & Smear Routine
YE Source: Pleural Fluid
Specimen Description:
Date Specimen was Collected: 02/26/25
Time Specimen was Collected: 15:15
Comment: post procedure
Fluid Culture with Gram Stain Routine
YE Source: Pleural Fluid
Specimen Description:
Date Specimen was Collected: 02/26/25
Time Specimen was Collected: 15:15
Comment: post procedure
Fungus Culture Routine
YE Source: Pleural Fluid
Specimen Description:
Date Specimen was Collected: 02/26/25
Time Specimen was Collected: 15:15
Fungus Smear Routine
YE Source: Pleural Fluid
Specimen Description:
Date Specimen was Collected: 02/26/25
Time Specimen was Collected: 15:15
02/26/25 16:30
Insulin Aspart Corrective Mod [Novolog Flexpen-Moderate Resistance] See Protocol SC AC
Insulin Aspart Pen [Novolog Flexpen] DOSE units SC AC
02/26/25 16:40
Guaifenesin [Mucinex] 1,200 mg PO NOW STA
02/26/25 18:00
Atorvastatin [Lipitor] 40 mg PO QPM
Cholecalciferol (Vitamin D3) [VITAMIN D3 (cholecalciferol)] 25 mcg PO QPM
Ezetimibe [Zetia] 10 mg PO QPM
Warfarin [Coumadin] 5 mg PO QPM
coQ10 (ubiquinol) 100 mg PO QPM
02/26/25 20:00
Docusate Sodium [Colace] 100 mg PO BID
02/26/25 22:00
Trazodone [Desyrel] 75 mg PO HS
02/27/25 04:28
Magnesium IN AM
PTT IN AM
Prothrombin Time IN AM
02/27/25 08:00
Amiodarone [Pacerone] 200 mg PO DAILY
Bumetanide [Bumex] 2 mg PO DAILY
Clopidogrel Bisulfate [Plavix] 75 mg PO DAILY
Dapagliflozin [Farxiga] 10 mg PO DAILY
Guaifenesin [Mucinex] 1,200 mg PO Q12
Metoprolol Xl [Toprol Xl] 25 mg PO DAILY
Multivitamin [Theragran] 1 tablet PO DAILY
Sitagliptin Phosphate [Januvia] 100 mg PO DAILY
Tamsulosin [Flomax] 0.4 mg PO DAILY
02/27/25 16:00
CefTRIAXone [Rocephin] 2,000 mg IV DAILY@1600
Abnormal Lab Results
02/26/25
09:34
WBC 19.8 H 10^3/uL
(4.8-10.8)
RBC 3.83 L 10^6/uL
(4.70-6.10)
Hgb 10.0 L g/dL
(13.0-18.0)
Hct 31.7 L %
(39.0-52.0)
MCH 26.1 L pg
(27.0-31.0)
MCHC 31.5 L g/dL
(33.0-37.0)
RDW 17.1 H %
(11.5-14.5)
Plt Count 459 H D 10^3/uL
(130-400)
Abs Immat Gran (auto) 0.3 H 10^3/uL
(0-0.05)
Absolute Neuts (auto) 16.6 H 10^3/uL
(1.4-6.5)
Absolute Monos (auto) 1.5 H 10^3/uL
(0.1-0.6)
Immature Gran % 1.6 H %
(0-0.5)
Neutrophils % 83.9 H %
(42.2-75.2)
Lymphocytes % 6.6 L %
(20.5-51.1)
PT 22.6 H Sec
(11.4-14.6)
Sodium 134 L mmol/L
(135-145)
BUN 34 H mg/dl
(9-20)
Glucose 213 H mg/dl
(70-99)
ALT 58 H U/L
(0-50)
Alkaline Phosphatase 334 H U/L
(38-126)
Albumin 3.0 L g/dl
(3.5-5.0)
02/26/25 09:34
02/26/25 09:34
Vital Signs
Initial and Last Documented VS:
Initial Vital Signs
Temp Pulse Resp BP Pulse Ox
97.7 F 84 15 122/76 91
02/26/25 09:23 02/26/25 09:23 02/26/25 09:23 02/26/25 09:23 02/26/25 09:23
Last Documented Vital Signs
Temp Pulse Resp BP Pulse Ox
97.5 F 51 20 107/68 98
02/27/25 07:19 02/27/25 08:00 02/27/25 07:19 02/27/25 07:20 02/27/25 07:20
MDM/Problems Addressed
Differential Diagnosis Includes:
Increased work of breathing with new hemoptysis. He is on Coumadin. Will check INR. Question worsening infection. He is requiring nasal cannula oxygen. Will order portable chest x-ray and labs.
*Pulse Oximetry
SaO2: 91
Oxygen Mode of Delivery: Room air
Patient hypoxic: no
*Critical Care Note
Total Time (30-74mins, 75-104mins- exclusive of procedures): Not Applicable
Update Note
Update Note:
Patient reevaluated. Still on nasal cannula oxygen. Chest x-ray shows progression of illness in the right lung. 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 This is pending.
ED Attending Note
-
Portions of this chart may have been created with voice recognition software.� Occasional wrong word or��sound alike� substitutions may have occurred due to the inherent limitations of voice recognition software.
Discharge Plan
Departure
Patient Disposition: Admit
Date of Disposition: 02/26/25
Time of Disposition: 12:33
Presentation/result/management discussed w/ accepting MD/: Juan Ramon
Discharge Problem:
Shortness of breath
Interventions
Interventions:
*Risk Screen - Suicide Last Done: 02/26/25 09:23
*General Assessment Last Done: 02/26/25 17:00
*Neglect/Abuse Screening Last Done: 02/26/25 09:23
*ED- Fall Risk Assessment Last Done: 02/26/25 17:00
*ED COVID-19 Vaccine History Last Done: 02/26/25 09:23
*Nursing Disposition Last Done: 02/26/25 17:00
ED- Cardiac Assessment Last Done: 02/26/25 11:59
ED- Pulmonary Assessment Last Done: 02/26/25 11:59
Discharge Date and Time
Discharge Date/Time: 02/26/25 17:01
[2025-02-26 10:03] LABS: INR 1.94; PT 22.6 Sec (11.4-14.6)
[2025-02-26 10:13] LABS: ALT (SGPT) 58 U/L (0-50); AST (SGOT) 49 U/L (17-59); Albumin 3.0 g/dl (3.5-5.0); Alkaline Phosphatase 334 U/L (38-126); Blood Urea Nitrogen 34 mg/dl (9-20); Calcium 8.7 mg/dl (8.4-10.2); Carbon Dioxide 26 mmol/L (22-30); Chloride 99 mmol/L (98-107); Estimated Creatinine Clearance 69 ml/min; Glucose 213 mg/dl (70-99); Potassium 3.8 mmol/L (3.5-5.1); Sodium 134 mmol/L (135-145); Total Protein 6.8 g/dl (6.3-8.2); eGFR > 60.00
--- NOTE | 2025-02-26 13:24 | HPS.HSE ---
Addendum entered and electronically signed by Claire Leos PA-C 02/27/25 10:51:
# s/p Mechanical AVR (On-X)-> note: not On-X valve. [place] Mechanical valve placed in 2008.
Original Note:
Family Physician
-
Family Physician: Kyrie Asher
Chief Complaint
-
shortness of breath, worsening cough
History of Present Illness
75-year-old male well-known to cardiac surgery service from Mechanical AVR (On-X)/CABG 2008-chronic anticoagulation (Coumadin); PCI 2024 complicated by spiral dissection of the DE [place] SANTOS subsequent redo CABG 08/2024, and right robotic assisted RML/RLL
with chest wall decortication and pleurodesis on with Dr. Alejandre. Patient was discharged home on 02/11 with Heimlich valve and readmitted for empyema. Patient required an IR chest tube in addition to his surgical Heimlich. Pleural
fluid grew Klebsiella oxytoca and ceftriaxone 2 g IV daily x 6 weeks initiated with end date of 03/30/2025. Chest tubes were removed prior to discharge. Patient presented to [facility] ER today with increased frequency of coughing and shortness of breath.
Medical History
Past Medical History
Past Medical History: Reports Other
Additional Past Medical History:
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
Past Surgical History: Reports Other
Additional Past Surgical History:
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
wall due to thick pleura rind)
Social History
Tobacco: Non-smoker
Alcohol: None
Drug: None
Personal:
Living: With Family
Employment: Retired
Family History
Family History: Not pertinent
Allergies / Home Medications
Allergies reflects when Allergies were last updated in [employer].
Home Medications with original date entered in [employer]
Allergy/Medication List:
Allergies
Allergy/AdvReac Type Severity Reaction Status Date / Time
levofloxacin (From Levaquin) Allergy Mild muscle pain Verified 02/15/25 14:52
simvastatin (From Zocor) Allergy Mild MYALGIAS/leg Verified 02/15/25 14:52
cramping
rosuvastatin calcium (From Allergy Unknown Unknown Verified 02/15/25 14:52
Crestor)
Home Medications
�Medication �Instructions �Recorded
cholecalciferol (vitamin D3) 25 1,000 units PO QPM Supplement 08/26/18
mcg (1,000 unit) tablet
amiodarone 200 mg tablet 200 mg PO DAILY Arrhythmia 30 days 09/15/24
#30 tabs
bumetanide 2 mg tablet 2 mg PO DAILY Fluid 09/15/24
retention/Swelling 30 days #30 tabs
clopidogrel 75 mg tablet 75 mg PO DAILY Blood clot 09/15/24
prevention/tx/Afib #30 tabs
dapagliflozin propanediol 10 mg 10 mg PO DAILY Heart 09/15/24
tablet disease/condition 30 days #30 tabs
docusate sodium 100 mg capsule 100 mg PO BID Constipation 30 days 09/15/24
#60 caps
ezetimibe 10 mg tablet (Zetia) 10 mg PO QPM High cholesterol 30 09/15/24
days #30 tabs
gabapentin 100 mg capsule 100 mg PO TID Pain 30 days #90 caps 09/15/24
sitagliptin phosphate 100 mg 100 mg PO DAILY Diabetes 30 days 09/15/24
tablet (Januvia) #30 tabs
tamsulosin 0.4 mg capsule 0.4 mg PO DAILY Bladder/BPH 30 09/15/24
days #30 caps
acetaminophen 500 mg tablet 1,000 mg PO DAILYPRN PRN mild pain 11/16/24
insulin aspart U-100 100 unit/mL 1 sliding scale dose SC AC Diabetes 11/16/24
(3 mL) subcutaneous pen
insulin glargine 100 unit/mL (3 21 unit SC QHS Diabetes 11/16/24
mL) subcutaneous pen (Lantus
Solostar U-100 Insulin)
metoprolol succinate 25 mg 25 mg PO DAILY blood pressure 11/16/24
tablet,extended release 24 hr
trazodone 50 mg tablet 75 mg PO HS insomnia 11/16/24
atorvastatin 80 mg tablet 40 mg PO QPM High Cholesterol 01/21/25
therapeutic multivitamin 1 tab PO DAILY 02/15/25
warfarin 5 mg tablet 5 mg PO QPM 02/15/25
ceftriaxone 2 gram solution for 2,000 mg IV DAILY@1200 02/26/25
injection
coQ10 (ubiquinol) 100 mg capsule 100 mg PO QPM 02/26/25
guaifenesin 600 mg tablet, 600 mg PO BIDPRN PRN COUGH 02/26/25
extended release 12 hr (Mucinex)
oxycodone 5 mg tablet 5 mg PO TIDPRN PRN mild pain 02/26/25
Review of Systems
-
History Source: Patient
A 12 point ROS was completed and negative except as noted: Yes
Physical Exam
Vital Signs
Vital Signs
Temp Pulse Resp BP Pulse Ox
97.7 F 84 15 122/76 91
02/26/25 09:23 02/26/25 09:23 02/26/25 09:23 02/26/25 09:23 02/26/25 09:56
Physical Exam
General: Well Developed, Well Nourished and Pain (with coughing)
HEENT: NormoCephalic, Anicteric and PERRLA
Respiratory: Other (decreased breath sounds 1/3 up on R)
Cardiac: S1/S2, Regular Rhythm and Other (crisp prosthetic aortic click)
Breast: Deferred by me
GI: Soft, Non Tender, Non Distended and Normal Bowel Sounds
Rectal: Deferred by Provider
Genito-urinary: Deferred by me
Musculoskeletal: No Clubbing, No Cyanosis and No Edema
Skin: Warm, Dry, Ulcers (sacral decub stage 4) and IV/Catheter Site (RUE PICC intact w/o erythema)
Neuro: AO x 3, No Motor Deficits and Nonfocal/grossly intact
Hematologic/Lymphatic: No Lymphadenopathy
Laboratory Results
-
02/26/25 09:34
02/26/25 09:34
Laboratory Results
PT 22.6 Sec (11.4-14.6) H 02/26/25 09:34
INR 1.94 02/26/25 09:34
Total Bilirubin 0.9 mg/dl (0.2-1.3) 02/26/25 09:34
AST 49 U/L (17-59) 02/26/25 09:34
ALT 58 U/L (0-50) H 02/26/25 09:34
Alkaline Phosphatase 334 U/L (38-126) H 02/26/25 09:34
Data Reviewed
-
CT Scan: Report Reviewed by me and Discussed with Physician
Lab Data: Labs Reviewed by me and Discussed with Physician
Old Records: Reviewed
Impression/Plan
-
IMPRESSION: 75 year old male with recurrent right pleural effusion on recent Klebsiella oxytoca empyema
- CT xhest: large complex loculated hydropneumothorax on the right
PLAN:
-admit and consult for IR chest tube placement
- continue Ceftriaxone 2G IV daily (end date 03/30) via RUE PICC
- consult pulmonary
- Amio for AF prophylaxis s/p lung surgery
# s/p Mechanical AVR (On-X)
- continue Warfarin 5mg daily
- check INR in AM
# CAD s/p CABG (2024)
- continue Lipitor, Toprol, Plavix, CoQ10
# T2DM w/neuropathy
- continue diabetic diet
- continue Januvia, Glargine, Farxiga, gabapentin
- POC glucose AC + HS w/SSI
# BPH
- continue Flomax
# Chronic sacral wound present on admission
- consult wound
- offload pressure
--- NOTE | 2025-02-26 13:25 | CON.PUL ---
Consultation
Consultation Request
Date/Time Consultation Requested: 02/26/25
Date/Time Consultation Performed: 02/26/25
Performing Provider: Yuli
Reason for Consultation: PNA
Medical History
-
History of Present Illness:
75-year-old non-smoking male with a history of hypertension, hyperlipidemia, GERD, diabetes, CAD/aortic stenosis, PAT had redo CABG August 2024 and recent robotic assisted right decortication and pleurodesis by Dr. Alejandre on 02/04/2025 for entrapped
right lower lobe lung with recurrent pleural effusions and respiratory failure, recently discharged 02/21/25 for complex fluid. He presents again with increasing shortness of breath, chest congestion, cough wtih productive mucus that is greenish at
times bloody. CT showing similar findings to last admission.
Past Medical History
Past Medical History: Other (see list below)
Social History
Tobacco: Non-smoker
Alcohol: None
Drug: None
Family History
Family History: Reviewed & Not Pertinent
Allergies / Home Medications
Allergies
Allergy/AdvReac Type Severity Reaction Status Date / Time
levofloxacin (From Levaquin) Allergy Mild muscle pain Verified 02/15/25 14:52
simvastatin (From Zocor) Allergy Mild MYALGIAS/leg Verified 02/15/25 14:52
cramping
rosuvastatin calcium (From Allergy Unknown Unknown Verified 02/15/25 14:52
Crestor)
Home Medications
�Medication �Instructions �Recorded �Confirmed �Last Taken �Type
cholecalciferol (vitamin D3) 25 1,000 units PO QPM Supplement 08/26/18 02/26/25 02/25/25 History
mcg (1,000 unit) tablet
amiodarone 200 mg tablet 200 mg PO DAILY Arrhythmia 30 days 09/15/24 02/26/25 02/25/25 Rx
#30 tabs
bumetanide 2 mg tablet 2 mg PO DAILY Fluid 09/15/24 02/26/25 02/25/25 Rx
retention/Swelling 30 days #30 tabs
clopidogrel 75 mg tablet 75 mg PO DAILY Blood clot 09/15/24 02/26/25 02/25/25 Rx
prevention/tx/Afib #30 tabs
dapagliflozin propanediol 10 mg 10 mg PO DAILY Heart 09/15/24 02/26/25 02/25/25 Rx
tablet disease/condition 30 days #30 tabs
docusate sodium 100 mg capsule 100 mg PO BID Constipation 30 days 09/15/24 02/26/25 02/25/25 Rx
#60 caps
ezetimibe 10 mg tablet (Zetia) 10 mg PO QPM High cholesterol 30 09/15/24 02/26/25 02/25/25 Rx
days #30 tabs
gabapentin 100 mg capsule 100 mg PO TID Pain 30 days #90 caps 09/15/24 02/26/25 02/25/25 Rx
sitagliptin phosphate 100 mg 100 mg PO DAILY Diabetes 30 days 09/15/24 02/26/25 02/25/25 Rx
tablet (Januvia) #30 tabs
tamsulosin 0.4 mg capsule 0.4 mg PO DAILY Bladder/BPH 30 09/15/24 02/26/25 02/25/25 Rx
days #30 caps
acetaminophen 500 mg tablet 1,000 mg PO DAILYPRN PRN mild pain 11/16/24 02/26/25 02/25/25 History
insulin aspart U-100 100 unit/mL 1 sliding scale dose SC AC Diabetes 11/16/24 02/26/25 02/25/25 History
(3 mL) subcutaneous pen
insulin glargine 100 unit/mL (3 21 unit SC QHS Diabetes 11/16/24 02/26/25 02/25/25 History
mL) subcutaneous pen (Lantus
Solostar U-100 Insulin)
metoprolol succinate 25 mg 25 mg PO DAILY blood pressure 11/16/24 02/26/25 02/25/25 History
tablet,extended release 24 hr
trazodone 50 mg tablet 75 mg PO HS insomnia 0502/26/25 02/25/25 History
atorvastatin 80 mg tablet 40 mg PO QPM High Cholesterol 01/21/25 02/26/25 02/25/25 History
therapeutic multivitamin 1 tab PO DAILY 02/15/25 02/26/25 02/25/25 History
warfarin 5 mg tablet 5 mg PO QPM 02/15/25 02/26/25 02/25/25 History
ceftriaxone 2 gram solution for 2,000 mg IV DAILY@1200 02/26/25 02/26/25 02/25/25 History
injection
coQ10 (ubiquinol) 100 mg capsule 100 mg PO QPM 02/26/25 02/26/25 02/25/25 History
guaifenesin 600 mg tablet, 600 mg PO BIDPRN PRN COUGH 02/26/25 02/26/25 02/25/25 History
extended release 12 hr (Mucinex)
oxycodone 5 mg tablet 5 mg PO TIDPRN PRN mild pain 02/26/25 02/26/25 02/25/25 History
Review of Systems
-
History Source: Patient
All other systems: Negative unless noted
Vitals / Labs / Diagnostic Testing
Vital Signs
Temp Pulse Resp BP Pulse Ox
97.7 F 84 15 122/76 91
02/26/25 09:23 02/26/25 09:23 02/26/25 09:23 02/26/25 09:23 02/26/25 09:56
Lab Data
02/26/25 09:34
02/26/25 09:34
Laboratory Results
02/26/25
09:34
PT 22.6 H
INR 1.94
Diagnostic Testing:
Physical Exam
-
HEENT: Normocephalic, Anicteric and Moist Mucous Membranes
Cardiovascular: S1/S2 and Regular Rhythm
Respiratory: Clear and Non-Labored Respirations
GI: Soft, Non Distended and Non Tender
Neurology: Awake, Alert, Oriented and No Motor Deficits
Skin: Warm, Dry and Good Color
General: Comfortable and Other (NAD)
Assessment
-
75-year-old non-smoking male with a history of hypertension, hyperlipidemia, GERD, diabetes, CAD/aortic stenosis, PAT had redo CABG August 2024 and recent robotic assisted right decortication and pleurodesis by Dr. Alejandre on 02/04/2025 for entrapped
right lower lobe lung with recurrent pleural effusions and respiratory failure, recently discharged 02/21/25 for complex fluid. He presents again with increasing shortness of breath, chest congestion, cough wtih productive mucus that is greenish at
times bloody. CT showing similar findings to last admission. We are consulted for readmission for complex R pleural fluid.
Acute on chronic recurrent right pleural effusion
Readmission 02/26, discharged 02/21/25
Worsening chest congestion, cough w/ productive sputum
Leukocytosis
Pwdfcl-rpgcogfdlu-dyrldrhxkf 9.8-stable
Hyperglycemia
Conditions present prior to admission:
Recurrent right pleural effusion s/p thora 12/03/24, 12/18/24
status post RATS decortication of right lower lobe and right middle lobes, decortication of chest wall due to thick pleura rind, pleurodesis 02/04/2025
discharged home on 02/11/25 w/ right pleural chest tube to Heimlich valve and leg bag gravity drainage
Readm 02/15/25-02/21/25: s/p lysis attempt 02/16/25; s/p insertion of chest tube 'B' large bore/anterior R chest placement 02/17/[address] 'A' was dcd 02/19; R pleur CT 'B' dcd on 02/20
Pleural fluid cx with Klebsiella oxytoca -ID switched on 02/19 from Zosyn to Ceftriaxone 2g IV q24h x 6 weeks through 03/30/25/picc line placed 02/20
CAD/aortic stenosis/Mechanical AVR /CABG 2008-chronic anticoagulation (Coumadin)
s/p PCI 2024 complicated by spiral dissection of the DE [place] SANTOS subsequent redo CABG 08/2024
BPH.
PAT.
Diabetes/neuropathy.
GERD.
Hypertension.
Hyperlipidemia.
Plan
At this time, patient appears to be comfortable, stable on RA
He notes ongoing complaints of chest congestion, productive cough
CT reviewed showing similar findings to last hospitalization--extensive records and treatments are reviewed/as above
Recent discharged 02/21 following attempts at chest tube drainage
IR consulted for chest tube placement again, lytics can be tried again
This did not seem to successfully drain chest on last admission
I am less optimistic on its success on this admission
If not improving, would consider CTS re-eval for OR again
Imaging reviewed, would this be amenable to resection at this point?
Consideration to transfer to tertiary center as well if surgical options are limited at
Placed on IV abx for continued treatment
Micro reviewed--
+ Klebsiella oxy on prior pleural culture from 02/17/25
+ E coli sputum 08/23/24
Speech eval on prior admission noted 08/18/24-Patient with elevated risk factors for dysphagia (i.e., s/p CABG with HAILEY, sternotomy; VDRF 08/13-08/17) and chronic dysphagia (i.e., VFSS 12/10/2020 WFL oral/pharyngeal, esophageal stasis). Vocal quality
WFL-mild s/p extubation. WFL-mild oral stage differences.
Ongoing speech issues, micro data suggesting aspiration is an issue or contributing cause
Repeat speech eval again
Repeat imaging following chest tube placement
DVT prophylaxis-on Coumadin
Nutrition
Physical therapy
Difficult situation with recurrent readmissions
Diagnostic data:
Chest x-ray 02/15/2025-progressive accumulation of right pleural fluid, no pneumothorax
Chest x-ray 02/16/2025-right chest tube present with moderate right pleural effusion
CT chest 02/15/2025-complex moderate right pleural effusion, numerous foci of gas are seen throughout the fluid likely multiloculated, mild mediastinal adenopathy
CT Chest 02/26/25- Progressive moderate to large complex loculated hydropneumothorax on the right, as described. Some of the fluid appears slightly increased in attenuation, which could reflect an element of hemorrhage. Intraluminal opacity is
demonstrated in the right upper and lower lobe bronchus, consistent with mucous plugging. Progressive airspace opacity throughout the right hemithorax. Likely progressive atelectasis. There are some areas of patchy consolidation in the mid to lower
lung zone. The possibility of superimposed pneumonia cannot be excluded. Suggested mild volume loss with slight shift of the mediastinal structures to the left compared to the prior examination. A small left pleural effusion has developed. No
significant change in mediastinal adenopathy.
CT neck 05/03/21--severe degenerative/arthritic changes noted on the left side where the collar bone and chest bone or sternum meet -Sternoclavicular-which could explain the lump that he feels,, some carotid artery closure was noted and warrants
carotid ultrasounds, incidentally, his epiglottis also had a lot of calcifications which sometimes can be seen with people that have swallowing difficulties-Patient notified-we'll discuss carotid ultrasounds at next visit.�������
CT head angiogram 07/31/2023-no CT evidence for intracranial aneurysm
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
Brain MRA 06/28/21-no hemodynamically significant stenosis, branch occlusion or aneurysm�������
Neck MRA 06/28/21-no significant carotid plaque formation or hemodynamically significant stenosis
Echocardiogram 12/25/19-EF 65-70%�������
Echocardiogram 04/18/2024-EF 45-50%
ECHO 11/18/24- Mildly reduced left ventricular systolic function. Left ventricular ejection fraction is 45%. Mild mitral stenosis. Mild/moderate mitral regurgitation. Normal functioning mechanical prosthetic aortic valve replacement. Peak/mean
gradients are 7/3 mmHg. No aortic regurgitation is seen. Compared to 04/18/24: LVEF is similar (prior 45-50%). MR has progressed from mild to mild/moderate.
Nuclear stress test 05/17/21-Systolic function moderately reduced, EF 41%, moderate risk study.
Cardiac catheterization 08/13/2024-successful PCI mid LAD distal stent edge haziness and 80% ISR lesion with reduction in stenosis, successful PCI 90% DE [place] SANTOS/LAD with reduction of stenosis to 0% with subsequent complication by dissection of DE [place] SANTOS graft
after post dilation
PSG around 2006 AHI-36, desaturation stefano 85%, CPAP 7-cm�������
HST-after 80 pound weight loss-05/23/21-ROSE-1.4, desaturation stefano 89%.
-----
Total time spent on this consultation/encounter __80__ minutes which includes review of history, physical exam, medications, laboratory data, personal review of imaging, extensive review of outpatient records, discussion with care team and
respiratory therapy.
[2025-02-26] MEDS: STERILE WATER FOR INJECTION 20 ML IV (16:18)
[2025-02-26] MEDS: ROCEPHIN 2000 MG IV (16:18)
[2025-02-26 17:04] LABS: Body Fluid Second Tech US
[2025-02-26 17:15] LABS: Glucose - Point of Care 233 mg/dl (70-99)
[2025-02-26] MEDS: LIPITOR 40 MG PO (17:15)
[2025-02-26] MEDS: NEURONTIN 100 MG PO ×2 (17:15→22:22)
[2025-02-26] MEDS: ZETIA 10 MG PO (17:15)
[2025-02-26] MEDS: VITAMIN D3 (cholecalciferol) 25 MCG PO (17:15)
[2025-02-26] MEDS: MUCINEX 1200 MG PO (17:15)
[2025-02-26] MEDS: NOVOLOG FLEXPEN-MODERATE RESISTANCE 3 UNITS SC (17:31)
[2025-02-26] MEDS: COUMADIN 2.5 MG PO (17:41)
--- NOTE | 2025-02-26 17:50 | PTCARENOTE ---
Rec'd pt from ED. R pleural chest tube set to suction at -20cm. No crepitus noted. Dsg is c/d/i. Pt w/ RUE PICC line. VAT nurse paged and at bedside. Pt has no complaints at this time. Oriented pt to room. Family at bedside. Currently in bed; call
dameon w/in reach.
--- NOTE | 2025-02-26 17:53 | PTCARENOTE ---
Rec'd pt from ED. R pleural chest tube set to suction at -20cm. No crepitus/tidaling noted. Dsg is c/d/i. Pt w/ RUE PICC line. VAT nurse paged and at bedside. Pt has no complaints at this time. Oriented pt to room. Family at bedside. Currently in
bed; call dameon w/in reach.
--- NOTE | 2025-02-26 18:00 | PTCARENOTE ---
Pt w/ stage 4 sacrum wound. states she changes dsg daily w/ collagen dsg. Wound consult in place.
[2025-02-26] MEDS: CATHFLO/ACTIVASE 2 MG INTRACATH (19:04)
--- NOTE | 2025-02-26 19:09 | VATNOTE ---
cathflo red picc lumen now with stopcock.
--- NOTE | 2025-02-26 20:36 | VATNOTE ---
rechecked red lumen right picc @ 1999 after one hr. of Cathflo dwelling. NO blood return; will allow to dwell one more hr and recheck. Definite blood return from other lumen at this time.
--- NOTE | 2025-02-26 22:16 | VATNOTE ---
rechecked red picc lumen @ approx. 2100 and now with blood return; however sluggish flush and blood return; pt does have a 4FR dual lumen picc
[2025-02-26] MEDS: COLACE 100 MG PO (22:22)
[2025-02-26] MEDS: DESYREL 75 MG PO (22:22)
[2025-02-26] MEDS: LANTUS 0.21 UNITS SC (22:24)
[2025-02-26 22:31] LABS: Glucose - Point of Care 282 mg/dl (70-99)
--- NOTE | 2025-02-27 00:58 | PTCARENOTE ---
Received pt @ change of shift. AAOx3, VSS on 4L NC-- NSR on monitor. Right pleural chest tube connected to suction @ -20 cm-- intact, no tidaling or crepitus present @ this time. Discussed plan of care. Pt verbalizes understanding. Call xiao within
reach.
--- NOTE | 2025-02-27 01:14 | W.PN.CT ---
Documented by User: ROCIO Mcelroy 02/27/25 05:54
Today's Communication / Plan
-
-CT to suction, ~225 cc out since arrival to IVU?
-Pulm following, considering lytics
-wean O2, OOB
-follow CXR daily
-Abx
Assessment / Plan
-
75 year old male redo CABG August 2024 and recent robotic assisted right decortication and pleurodesis by Dr. Alejandre on 02/04/2025 for entrapped right lower lobe lung with recurrent pleural effusions and respiratory failure with recurrent right
pleural effusion and Klebsiella oxytoca empyema
# Large complex loculated hydropneumothorax on the right
# Acute respiratory insufficiency on LFNC
# SOB
- s/p IR guided [address] on R, 300 cc out in IR
- continue Ceftriaxone 2G IV daily (end date 03/30) via RUE PICC
- consult pulmonary, considering lytics
- Amio for AF prophylaxis s/p lung surgery
- IS, OOB, PT
# s/p Mechanical AVR (On-X) 2008
- continue Warfarin 5mg daily
- follow INR
# CAD s/p CABG (2024)
- continue Lipitor, Toprol, Plavix, CoQ10, Zetia, Bumex
# T2DM w/neuropathy
- continue diabetic diet
- continue Januvia, Glargine, Farxiga, gabapentin
- POC glucose AC + HS w/SSI
# BPH
- continue Flomax
# Chronic sacral wound present on admission
- consult wound
- offload pressure
Subjective
-
Date of Service: February 27, 2025
Objective Data
-
PT 22.6 Sec (11.4-14.6) H 02/26/25 09:34
INR 1.94 02/26/25 09:34
Vital Signs
Vital Signs
Temp Pulse Resp BP Pulse Ox
98.5 F 61 18 125/76 100
02/26/25 22:20 02/26/25 23:45 02/26/25 22:20 02/26/25 22:21 02/26/25 23:45
CT Intake/Output/Weight
02/26/25 02/26/25 02/27/25
06:59 18:59 06:59
Output Total 225 / 225
Balance -225 / -225
SaO2: 100
Physical Exam
-
General: Awake and Oriented
Cardiovascular: Regular rate & rhythm
Respiratory: Clear, Rhonchi and Decreased Breath Sounds
Incision: Clean and Dry
Extremities: No Edema and No Erythema
Data Reviewed
-
Lab Results: Results Reviewed
Medications: Active Meds Reviewed
Chest X-Ray: Report Reviewed and Image Reviewed
ECG: Report Reviewed

Documented by User: Claire Leos PA-C 02/27/25 11:47
Today's Communication / Plan
-
response to query: Acute hypoxic respiratory failure.
-CT to suction, ~225 cc out since arrival to IVU?
-Pulm following, considering lytics
-wean O2, OOB
-follow CXR daily
-Abx
[2025-02-27 04:18] VITALS: BP 120/73
[2025-02-27] MEDS: TYLENOL 1000 MG PO (04:54)
[2025-02-27 04:55] LABS: Hematocrit 28.9 % (39.0-52.0); Hemoglobin 9.2 g/dL (13.0-18.0); Mean Corp Hgb Conc. 31.8 g/dL (33.0-37.0); Mean Corpuscular Volume 82.8 fL (80.0-94.0); Platelet Count 408 10^3/uL (130-400); Red Cell Dist. Width 17.0 % (11.5-14.5)
[2025-02-27 05:04] LABS: INR 2.07; PT 23.8 Sec (11.4-14.6)
[2025-02-27 05:05] LABS: APTT 44.7 Sec (23.4-35.0)
[2025-02-27 05:30] LABS: Blood Urea Nitrogen 44 mg/dl (9-20); Calcium 8.6 mg/dl (8.4-10.2); Carbon Dioxide 29 mmol/L (22-30); Chloride 99 mmol/L (98-107); Estimated Creatinine Clearance 63 ml/min; Glucose 193 mg/dl (70-99); Magnesium 2.4 mg/dl (1.6-2.3); Potassium 4.4 mmol/L (3.5-5.1); Sodium 134 mmol/L (135-145); eGFR > 60.00
[2025-02-27 06:00] VITALS: BMI 25.7
[2025-02-27 07:20] VITALS: BP 107/68
[2025-02-27] MEDS: BUMEX 2 MG PO (08:17)
[2025-02-27] MEDS: NEURONTIN 100 MG PO ×3 (08:17→22:39)
[2025-02-27] MEDS: FLOMAX 0.4 MG PO (08:18)
[2025-02-27] MEDS: JANUVIA 100 MG PO (08:18)
[2025-02-27] MEDS: MUCINEX 1200 MG PO ×2 (08:18→20:39)
[2025-02-27] MEDS: FARXIGA 10 MG PO (08:18)
[2025-02-27] MEDS: THERAGRAN 1 TABLET PO (08:18)
[2025-02-27] MEDS: TOPROL XL 25 MG PO (08:18)
[2025-02-27] MEDS: COLACE 100 MG PO ×2 (08:18→20:38)
[2025-02-27] MEDS: PACERONE 200 MG PO (08:18)
[2025-02-27] MEDS: PLAVIX 75 MG PO (08:18)
--- NOTE | 2025-02-27 08:32 | VATNOTE ---
Red lumen of PICC line flushes without difficulty this am. Brisk blood return noted.
--- NOTE | 2025-02-27 08:50 | VNURNOTE ---
Chart reviewed. Patient is current with [facility]. Will continue to follow hospital course and DC plans.
--- NOTE | 2025-02-27 09:25 | W.PN.PUL3 ---
Today's Communication / Plan
-
- Install tPA/DNAse intra-pleurally x 3 days
- F/u CXR in AM
- f/u CT Chest Sunday (03/02) to evaluate response to tPA/DNAse
Assessment
-
75-year-old non-smoking male with a history of hypertension, hyperlipidemia, GERD, diabetes, CAD/aortic stenosis, PAT had redo CABG August 2024 and recent robotic assisted right decortication and pleurodesis by Dr. Alejandre on 02/04/2025 for entrapped
right lower lobe lung with recurrent pleural effusions and respiratory failure, recently discharged 02/21/25 for complex fluid. He presents again with increasing shortness of breath, chest congestion, cough wtih productive mucus that is greenish at
times bloody. CT showing similar findings to last admission. We are consulted for readmission for complex R pleural fluid.
Acute on chronic recurrent right pleural effusion
Readmission 02/26, discharged 02/21/25
Worsening chest congestion, cough w/ productive sputum
Leukocytosis
Hqtbtq-shdybihcrr-vzqasnzadu 9.8-stable
Hyperglycemia
Conditions present prior to admission:
Recurrent right pleural effusion s/p thora 12/03/24, 12/18/24
status post RATS decortication of right lower lobe and right middle lobes, decortication of chest wall due to thick pleura rind, pleurodesis 02/04/2025
discharged home on 02/11/25 w/ right pleural chest tube to Heimlich valve and leg bag gravity drainage
Readm 02/15/25-02/21/25: s/p lysis attempt 02/16/25; s/p insertion of chest tube 'B' large bore/anterior R chest placement 02/17/[address] 'A' was dcd 02/19; R pleur CT 'B' dcd on 02/20
Pleural fluid cx with Klebsiella oxytoca -ID switched on 02/19 from Zosyn to Ceftriaxone 2g IV q24h x 6 weeks through 03/30/25/picc line placed 02/20
CAD/aortic stenosis/Mechanical AVR /CABG 2008-chronic anticoagulation (Coumadin)
s/p PCI 2024 complicated by spiral dissection of the DE LOS SANTOS subsequent redo CABG 08/2024
BPH.
PAT.
Diabetes/neuropathy.
GERD.
Hypertension.
Hyperlipidemia.
Plan
At this time, patient appears to be comfortable, stable on RA
He notes ongoing complaints of chest congestion, productive cough
CT reviewed showing similar findings to last hospitalization--extensive records and treatments are reviewed/as above
Recent discharged 02/21 following attempts at chest tube drainage
s/p IR guided chest tube placement 02/26, fluid studies pH 6.8 and glucose and Glucose < 30, consistent with Empyema
Start intra-pleural tPA/DNAse x 3 days. f/u CT chest Sunday to evaluate response to lysis.
last 12 hrs, 225 ml sanguinous drainage from chest tube. No air leak noted
If CT Chest 03/02, not improving, would consider CTS re-eval for OR again
Consideration to transfer to tertiary center as well if surgical options are limited at
Placed on IV abx for continued treatment
Micro reviewed--
+ Klebsiella oxy on prior pleural culture from 02/17/25
+ E coli sputum 08/23/24
Speech eval on prior admission noted 08/18/24-Patient with elevated risk factors for dysphagia (i.e., s/p CABG with HAILEY, sternotomy; VDRF 08/13-08/17) and chronic dysphagia (i.e., VFSS 12/10/2020 WFL oral/pharyngeal, esophageal stasis). Vocal quality
WFL-mild s/p extubation. WFL-mild oral stage differences.
Ongoing speech issues, micro data suggesting aspiration is an issue or contributing cause
Repeat speech eval again
Repeat imaging following chest tube placement
DVT prophylaxis-on Coumadin
Nutrition
Physical therapy
Difficult situation with recurrent readmissions
Diagnostic data:
Chest x-ray 02/15/2025-progressive accumulation of right pleural fluid, no pneumothorax
Chest x-ray 02/16/2025-right chest tube present with moderate right pleural effusion
CT chest 02/15/2025-complex moderate right pleural effusion, numerous foci of gas are seen throughout the fluid likely multiloculated, mild mediastinal adenopathy
CT Chest 02/26/25- Progressive moderate to large complex loculated hydropneumothorax on the right, as described. Some of the fluid appears slightly increased in attenuation, which could reflect an element of hemorrhage. Intraluminal opacity is
demonstrated in the right upper and lower lobe bronchus, consistent with mucous plugging. Progressive airspace opacity throughout the right hemithorax. Likely progressive atelectasis. There are some areas of patchy consolidation in the mid to lower
lung zone. The possibility of superimposed pneumonia cannot be excluded. Suggested mild volume loss with slight shift of the mediastinal structures to the left compared to the prior examination. A small left pleural effusion has developed. No
significant change in mediastinal adenopathy.
CT neck 05/03/21--severe degenerative/arthritic changes noted on the left side where the collar bone and chest bone or sternum meet -Sternoclavicular-which could explain the lump that he feels,, some carotid artery closure was noted and warrants
carotid ultrasounds, incidentally, his epiglottis also had a lot of calcifications which sometimes can be seen with people that have swallowing difficulties-Patient notified-we'll discuss carotid ultrasounds at next visit.�������
CT head angiogram 07/31/2023-no CT evidence for intracranial aneurysm
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
Brain MRA 06/28/21-no hemodynamically significant stenosis, branch occlusion or aneurysm�������
Neck MRA 06/28/21-no significant carotid plaque formation or hemodynamically significant stenosis
Echocardiogram 12/25/19-EF 65-70%�������
Echocardiogram 04/18/2024-EF 45-50%
ECHO 11/18/24- Mildly reduced left ventricular systolic function. Left ventricular ejection fraction is 45%. Mild mitral stenosis. Mild/moderate mitral regurgitation. Normal functioning mechanical prosthetic aortic valve replacement. Peak/mean
gradients are 7/3 mmHg. No aortic regurgitation is seen. Compared to 04/18/24: LVEF is similar (prior 45-50%). MR has progressed from mild to mild/moderate.
Nuclear stress test 05/17/21-Systolic function moderately reduced, EF 41%, moderate risk study.
Cardiac catheterization 08/13/2024-successful PCI mid LAD distal stent edge haziness and 80% ISR lesion with reduction in stenosis, successful PCI 90% DE LOS SANTOS/LAD with reduction of stenosis to 0% with subsequent complication by dissection of DE LOS SANTOS graft
after post dilation
PSG around 2006 AHI-36, desaturation stefano 85%, CPAP 7-cm�������
HST-after 80 pound weight loss-05/23/21-ROSE-1.4, desaturation stefano 89%.
-----
Total time spent on this consultation/encounter __80__ minutes which includes review of history, physical exam, medications, laboratory data, personal review of imaging, extensive review of outpatient records, discussion with care team and
respiratory therapy.
Subjective Data
-
Date of Service:
Date of Service: February 27, 2025
Subjective:
Comfortably lying in bed, no acute distress
Review of Systems
Genitourinary: Other (No new pulmonary symptoms )
Objective Data
Data Reviewed
Vital Signs / I&O / Oxygen:
Vital Signs
Temp Pulse Resp BP Pulse Ox
97.5 F 51 20 107/68 98
02/27/25 07:19 02/27/25 08:00 02/27/25 07:19 02/27/25 07:20 02/27/25 07:20
Intake and Output
02/26/25 02/27/25 02/28/25
06:59 06:59 06:59
Output Total 690 / 690
Balance -690 / -690
SaO2 98
Nasal Cannula flow liters per 1
minute
Physical Exam
General: Comfortable
HEENT: Normocephalic
Cardiovascular: S1-S2
Respiratory: Clear
GI: Soft and Non Distended
Neurology: Awake and Alert
Skin: Warm
Labs/Micro/Reports
Lab Data
02/27/25 04:28
02/27/25 04:28
Laboratory Results
02/26/25 02/27/25
09:34 04:28
PT 22.6 H 23.8 H
INR 1.94 2.07
APTT 44.7 H
Microbiology
02/26/25 16:11 Pleural Fluid Gram Stain - Preliminary
--- NOTE | 2025-02-27 09:30 | PTOTSP ---
Speech Language Pathology
Pt seen for clinical bedside swallow evaluation. Known to DIGITAL COLOR PRESS OPERATOR from previous VSEs completed 08/28/24 (recommendations for regular solids/thin liquids with strategies given pharyngeal residue and silent aspiration of consecutive sips of thin liquids)
and 12/10/20 with no significant findings. Pt reported some intermittent difficulty swallowing at home. He will sometimes regurgitate a pill after feeling it sticking in throat. Discussed results/recommendations from previous VSE and that pt
likely with some level of chronic dysphagia.
P.O. trials of regular solids and thin liquids provided. Pt appropriatley utilizing swallowing strategies of single sips and liquid washes post regular solids. Adequate mastication, bolus formation, and A-P transit noted with no oral residue. No
overt signs of aspiration.
Pt is at risk for aspiration given known dysphagia, but utilizes appropriate strategies independently. Discussed availability of outpatient VSE or outpatient dysphagia tx as needed in the future. Not currently priority.
Recommend:
(1) Regular solids/thin liquids
(2) Aspiration precautions: single sips only, sit upright, slow rate, intermittent liquid washes
(3) Meds whole in puree
(4) DIGITAL COLOR PRESS OPERATOR to sign off in this level of care. Please reconsult as indicated
[2025-02-27 09:43] LABS: Glucose - Point of Care 211 mg/dl (70-99)
[2025-02-27] MEDS: NOVOLOG FLEXPEN-MODERATE RESISTANCE 3 UNITS SC (09:43)
[2025-02-27 10:58] VITALS: BP 102/66
--- NOTE | 2025-02-27 11:35 | PN.CDI ---
CDI
- -
CDI:
Physician Documentation Request
Admit Date: 02/26/25 15:[address] Surgery,
Please review the following and provide your response in the progress notes.
Clinical Indicators:
- Patient admit with increased work of breathing, large hydropneumothorax, recurrent pleural effusion
- Pulse ox 89% on room air, placed on 6L O2, pulse ox 94%, tachypneic RR 20-30s
- 02/27 CT Surgery ' Acute respiratory insufficiency on LFNC'
- IR guided chest tube placed
please clarify which of the following accurately represents the patient's respiratory status:
Acute hypoxic respiratory failure
Hypoxia
Other (please specify)
Additional information for Respiratory Failure:
Recognized criteria for Respiratory Failure (Source: Carlene Howard 2018May 21.
Documentation tips: Acute Respiratory Failure, The Hospitalist.)
ABGs: (1 or more) Symptoms Please indicate type if known
1. p)2 <60 or RA SPO2 <91% on RA 1. Tachypnea, SOB, dyspnea Hypoxic
2. pCO2 >45 and pH <7.35 2. Use of accessory muscles Hypercapnic
3. pO2 decrease of pCO2 increase by 3. Pallor or cyanosis Hypoxic and Hypercapnic
10 mmHg from baseline if known 4. Anxiety or restlessness Unable to determine
4. P/F Ratio (pO2/FiO2)nless than 300 5. Unable to speak in full sentences
Use of terms such as suspected, likely, concern for, or probable (associated with a specific diagnosis that is being evaluated, monitored, or treated as if it exists) are acceptable and can be coded in the inpatient setting, when documented at the
time of discharge.
Thank you,
Yecenia Perez RN
CDI Specialist
Please use your independent medical judgment in providing your response.
--- NOTE | 2025-02-27 11:56 | PTCARENOTE ---
R pleural chest tube intact and connected to suction at -20cm. No crepitus noted. Pt transferred to an air bed for stage 4 on sacrum. Wound care at bedside. Pt has no complaints sob/discomfort at this time. Currently OOB in chair; call dameon w/in
reach.
--- NOTE | 2025-02-27 12:25 | WOUNDNOTE ---
LEFT HEEL 1950 [id number]
--- NOTE | 2025-02-27 12:26 | PN.IRAD.UPD ---
Update Note - IRAD
- -
went bedside to instill tpa/dornase to patient's right sided chest tube at 1215. cleaned tube and injected, no complaints from patient. clamped tube, and to be unclamped at 1415. nurse Nette is aware.
--- NOTE | 2025-02-27 12:26 | WOUNDNOTE ---
DELISA MONTEZ 1950 [id number]
--- NOTE | 2025-02-27 12:27 | WOUNDNOTE ---
SACRAL PI 1950 [id number]
--- NOTE | 2025-02-27 12:29 | WOUNDNOTE ---
[facility] RN note: Patient admitted for recurrent R pleural effusion.
See H&P for complete history.
PMH- PAD, type 2 diabetes, HTN, R pleural effusion-post RATS 02/[address] Alejandre. 75 year old male redo CABG August 2024 and recent robotic assisted right decortication and pleurodesis by Dr. Alejandre on 02/04/2025 for entrapped right lower lobe lung with
recurrent pleural effusions and respiratory failure with recurrent right pleural effusion and Klebsiella oxytoca empyema
Wound Location and type/assessment: Patient known to wound care service and goes to [facility] and sees Dr. Gonzales q 3 wks. Sacrum with healing stage 4 PI 4x.5x 1cm depth base with scant krishnamurthy, mostly pink. Scant maceration noted directly around
wound. Periwound blanchable red. at bedside gave an update on current wound care with collagen dressing and foam. Patient also has a DTI on left heel that he noticed at home and has been putting vaseline on it daily. He reports his left heel is
painful when touched. Right heel intact. Has multiple offloading cushions at home, confirmed patient is using. Also using mineral oil for dry skin on legs, supply at bedside.
Appetite: Good. Drinks supplemental protein shakes daily.
Pressure redistribution devices in place: Centrella Max Air ordered. Air cushion to chair. Patient transfers with assist and has some difficulty changing position in bed due to chest tube. Patient declines use of heel boots for off-loading but
agrees to keep heel off-loaded with pillows under calves.
Plan: Sacral dressing changed, obtained collagen from [facility], folded 2x2 gauze then sacral silicone foam. Recommended skin prep to periwound with same above dressing. wants to be sure that staff do not pack wound too tightly with too much
collagen dressing, as this happened in the past. Will clarify instructions in wound order. Adhesive foam applied to heels.RN Nette given update. Will confirm orders with hospitalist and update care plan.
Note to case management of equipment requested for discharge: None.
Recommend follow up at wound care center upon discharge.
--- NOTE | 2025-02-27 12:39 | WOUNDNOTE ---
sacrum: clean with saline, skin prep periwound, collagen (silver only available) *call wound nurse for more if needed or use patient's supply. Moisten collagen with saline, apply to base of wound followed by folded 2x2 gauze and sacral silicone
foam. Can reuse foam if not soiled and change inner dressing over sacrum daily.
Staff can use patient's own mineral oil at bedside for legs daily.
[2025-02-27 13:15] LABS: Glucose - Point of Care 272 mg/dl (70-99)
[2025-02-27] MEDS: NOVOLOG FLEXPEN-MODERATE RESISTANCE 5 UNITS SC (13:15)
[2025-02-27] MEDS: ROXICODONE 5 MG PO ×2 (14:14→22:45)
--- NOTE | 2025-02-27 14:20 | PTCARENOTE ---
Chest tube unclamped and reconnected to wall suction at -20cm at 1415 per IRAD ERINN Duncan.
[2025-02-27 15:22] VITALS: BP 103/64
--- NOTE | 2025-02-27 15:40 | CM ---
Reviewed chart. Met with and Mrs. Slater to review discharge plans. He states prior to admission he resides with his spouse in a two story home with two steps to enter. He states he has a full flight of steps to get to bedroom/full bathroom.
He states he has a powder room on the first floor. He states prior to admission he ambulates with a single point care. He has a walker and single point cane at home. He is current with [facility] for wound care . Prior to admission [facility] was seeing him for IV ABX. Telephone call to [facility] to see how to resume care. [facility] states they would need a new referral. It has to be faxed to them at ( ) and the phone number for [facility] is ([phone])If the PICC line information is the same, just need to state it the same. Will need new script to go home. Will need to see his current functional level to see if he will have any skilled care needs. Medical work-up
in progress. The discharge plan is to return home with [facility] and [facility] when medically stable.
[2025-02-27] MEDS: STERILE WATER FOR INJECTION 20 ML IV (15:52)
[2025-02-27] MEDS: ROCEPHIN 2000 MG IV (15:52)
[2025-02-27] MEDS: NOVOLOG FLEXPEN-MODERATE RESISTANCE 1 UNITS SC (17:24)
[2025-02-27 17:25] LABS: Glucose - Point of Care 199 mg/dl (70-99)
[2025-02-27] MEDS: COUMADIN 2.5 MG PO (17:25)
[2025-02-27] MEDS: LIPITOR 40 MG PO (17:25)
[2025-02-27] MEDS: ZETIA 10 MG PO (17:25)
[2025-02-27] MEDS: VITAMIN D3 (cholecalciferol) 25 MCG PO (17:25)
[2025-02-27 18:49] VITALS: BP 99/57
[2025-02-27 22:34] VITALS: BP 112/66
[2025-02-27 22:37] LABS: Glucose - Point of Care 232 mg/dl (70-99)
[2025-02-27] MEDS: DESYREL 75 MG PO (22:39)
[2025-02-27] MEDS: LANTUS 0.21 UNITS SC (22:40)
[2025-02-28 03:26] VITALS: BP 110/68
[2025-02-28 03:51] LABS: Hematocrit 29.2 % (39.0-52.0); Hemoglobin 9.3 g/dL (13.0-18.0); Mean Corp Hgb Conc. 31.8 g/dL (33.0-37.0); Mean Corpuscular Volume 81.6 fL (80.0-94.0); Platelet Count 356 10^3/uL (130-400); Red Cell Dist. Width 17.0 % (11.5-14.5)
[2025-02-28 04:02] LABS: INR 2.92; PT 30.4 Sec (11.4-14.6)
[2025-02-28 04:15] LABS: Blood Urea Nitrogen 51 mg/dl (9-20); Calcium 8.3 mg/dl (8.4-10.2); Carbon Dioxide 32 mmol/L (22-30); Chloride 100 mmol/L (98-107); Estimated Creatinine Clearance 58 ml/min; Glucose 169 mg/dl (70-99); Magnesium 2.3 mg/dl (1.6-2.3); Potassium 4.0 mmol/L (3.5-5.1); Sodium 135 mmol/L (135-145); eGFR > 60.00
--- NOTE | 2025-02-28 04:46 | W.PN.CT ---
Addendum entered and electronically signed by Patrice Delatorre MD 02/28/25 08:40:
I saw and examined the patient.
The PA's note was reviewed and I agree with the note.
Comment:
Good drainage from CT post lytic therapy
CXR slightly improved
Maintain CT
Continue ABX
Will consider PLEURX catheter - d/w pulmonary
Check prealb qMonday - maximize nutrition
Original Note:
Today's Communication / Plan
-
Plan:
-No major issues overnight
-Chest tube on -20 cmh2o wall suction, drained 85/395 (sanguineous)
-Receiving Lytic therapy per Pulm until Friday 03/02
-For repeat CT of chest on Sunday
-CXR this AM with slight improvement on my assessment, F/U official report
-Has PICC line and on Rocephin for Klebsiella oxytoca from pleural fluid 02/17/25
-Wound care following sacral decubitus ulcer
-On Coumadin for mechanical AVR, received 2.5 on 02/26 and 2.5 on 02/07; INR 2.07-> 2.92, will consider holding Coumadin today
-OOB into chair/Ambulate
Assessment / Plan
-
75 year old male redo CABG August 2024 and recent robotic assisted right decortication and pleurodesis by Dr. Alejandre on 02/04/2025 for entrapped right lower lobe lung with recurrent pleural effusions and respiratory failure with recurrent right
pleural effusion and Klebsiella oxytoca empyema
# Large complex loculated hydropneumothorax on the right
# Acute respiratory insufficiency on LFNC
# SOB
- s/p IR guided [address] on R, 300 cc out in IR
- continue Ceftriaxone 2G IV daily (end date 03/30) via RUE PICC
- consult pulmonary, considering lytics
- Amio for AF prophylaxis s/p lung surgery
- IS, OOB, PT
# s/p Mechanical AVR (On-X) 2008
- continue Warfarin 5mg daily
- follow INR
# CAD s/p CABG (2024)
- continue Lipitor, Toprol, Plavix, CoQ10, Zetia, Bumex
# T2DM w/neuropathy
- continue diabetic diet
- continue Januvia, Glargine, Farxiga, gabapentin
- POC glucose AC + HS w/SSI
# BPH
- continue Flomax
# Chronic sacral wound present on admission
- consult wound
- offload pressure
Subjective
-
Date of Service: February 28, 2025
Objective Data
-
Lab Results
02/28/25 03:41
02/28/25 03:41
PT 30.4 Sec (11.4-14.6) H 02/28/25 03:41
INR 2.92 02/28/25 03:41
APTT 44.7 Sec (23.4-35.0) H 02/27/25 04:28
Vital Signs
Vital Signs
Temp Pulse Resp BP Pulse Ox
97.5 F 55 18 110/68 97
02/28/25 03:31 02/28/25 03:26 02/28/25 03:31 02/28/25 03:26 02/28/25 03:31
CT Intake/Output/Weight
02/27/25 02/27/25 02/28/25
06:59 18:59 06:59
Intake Total 300 / 300
Output Total 465 / 690 1010 / 1310 300 / 1310
Balance -465 / -690 -710 / -1010 -300 / -1010
SaO2: 97
--- NOTE | 2025-02-28 06:45 | PTCARENOTE ---
Pt.'s chest tube drained 85 ml brown/maroon SS drainage this shift. -20 cm wall suction maintained, no crepitus or air leaks assessed, pulse ox high 90's on RA. Medicated with oxycodone for site discomfort with adequate relief obtained.
[2025-02-28 07:14] VITALS: BP 115/69
[2025-02-28 07:18] LABS: Glucose - Point of Care 145 mg/dl (70-99)
[2025-02-28 07:34] VITALS: BMI 25.6
[2025-02-28] MEDS: NOVOLOG FLEXPEN-MODERATE RESISTANCE SC (08:58)
[2025-02-28] MEDS: NEURONTIN 100 MG PO ×3 (08:58→22:30)
[2025-02-28] MEDS: COLACE 100 MG PO ×2 (08:59→19:44)
[2025-02-28] MEDS: PACERONE 200 MG PO (08:59)
[2025-02-28] MEDS: BUMEX 2 MG PO (08:59)
[2025-02-28] MEDS: THERAGRAN 1 TABLET PO (08:59)
[2025-02-28] MEDS: FLOMAX 0.4 MG PO (08:59)
[2025-02-28] MEDS: MUCINEX 1200 MG PO ×2 (08:59→19:44)
[2025-02-28] MEDS: TOPROL XL 25 MG PO (08:59)
[2025-02-28] MEDS: JANUVIA 100 MG PO (08:59)
[2025-02-28] MEDS: PLAVIX 75 MG PO (08:59)
[2025-02-28] MEDS: FARXIGA 10 MG PO (08:59)
[2025-02-28 11:38] VITALS: BP 125/74
[2025-02-28 11:46] LABS: Glucose - Point of Care 226 mg/dl (70-99)
--- NOTE | 2025-02-28 11:51 | W.PN.PUL3 ---
Today's Communication / Plan
-
Monitor output today, can try another dose of lytics tomorrow if output diminishes
Plan for repeat CT on Sunday (03/02) to eval for any need for further intervention
Reviewed plan of care with patient/ at bedside and care team
Assessment
-
75-year-old non-smoking male with a history of hypertension, hyperlipidemia, GERD, diabetes, CAD/aortic stenosis, PAT had redo CABG August 2024 and recent robotic assisted right decortication and pleurodesis by Dr. Alejandre on 02/04/2025 for entrapped
right lower lobe lung with recurrent pleural effusions and respiratory failure, recently discharged 02/21/25 for complex fluid. He presents again with increasing shortness of breath, chest congestion, cough wtih productive mucus that is greenish at
times bloody. CT showing similar findings to last admission. We are consulted for readmission for complex R pleural fluid.
Acute on chronic recurrent right pleural effusion
Readmission 02/26, discharged 02/21/25
Worsening chest congestion, cough w/ productive sputum
Leukocytosis
Mlwcty-dqaqsbzqfb-looddxmkfy 9.8-stable
Hyperglycemia
Conditions present prior to admission:
Recurrent right pleural effusion s/p thora 12/03/24, 12/18/24
status post RATS decortication of right lower lobe and right middle lobes, decortication of chest wall due to thick pleura rind, pleurodesis 02/04/2025
discharged home on 02/11/25 w/ right pleural chest tube to Heimlich valve and leg bag gravity drainage
Readm 02/15/25-02/21/25: s/p lysis attempt 02/16/25; s/p insertion of chest tube 'B' large bore/anterior R chest placement 02/17/[address] 'A' was dcd 02/19; R pleur CT 'B' dcd on 02/20
Pleural fluid cx with Klebsiella oxytoca -ID switched on 02/19 from Zosyn to Ceftriaxone 2g IV q24h x 6 weeks through 03/30/25/picc line placed 02/20
CAD/aortic stenosis/Mechanical AVR /CABG 2008-chronic anticoagulation (Coumadin)
s/p PCI 2024 complicated by spiral dissection of the DE LOS SANTOS subsequent redo CABG 08/2024
BPH.
PAT.
Diabetes/neuropathy.
GERD.
Hypertension.
Hyperlipidemia.
Plan
At this time, patient appears to be comfortable, stable on RA
He notes ongoing complaints of chest congestion, productive cough
CT reviewed showing similar findings to last hospitalization--extensive records and treatments are reviewed/as above
Recent discharged 02/21 following attempts at chest tube drainage
s/p IR guided chest tube placement 02/26, fluid studies pH 6.8 and glucose and Glucose < 30, consistent with Empyema
Start intra-pleural tPA/DNAse, received 02/27. f/u CT chest Sunday to evaluate response to lysis.
last 12 hrs, 225 ml sanguinous drainage from chest tube. No air leak noted
Output: 400, 1395, 690--can consider additional dose tomorrow
If CT Chest 03/02, not improving, would consider CTS re-eval for OR again
Consideration to transfer to tertiary center as well if surgical options are limited at
Placed on IV abx for continued treatment
Micro reviewed--
+ Klebsiella oxy on prior pleural culture from 02/17/25
+ E coli sputum 08/23/24
Speech eval on prior admission noted 08/18/24-Patient with elevated risk factors for dysphagia (i.e., s/p CABG with HAILEY, sternotomy; VDRF 08/13-08/17) and chronic dysphagia (i.e., VFSS 12/10/2020 WFL oral/pharyngeal, esophageal stasis). Vocal quality
WFL-mild s/p extubation. WFL-mild oral stage differences.
Ongoing speech issues, micro data suggesting aspiration is an issue or contributing cause
Repeat speech eval again
Repeat imaging following chest tube placement
DVT prophylaxis-on Coumadin
Nutrition
Physical therapy
Difficult situation with recurrent readmissions
Reviewed plan of care with CTS team, patient and at bedside
Diagnostic data:
Chest x-ray 02/15/2025-progressive accumulation of right pleural fluid, no pneumothorax
Chest x-ray 02/16/2025-right chest tube present with moderate right pleural effusion
CT chest 02/15/2025-complex moderate right pleural effusion, numerous foci of gas are seen throughout the fluid likely multiloculated, mild mediastinal adenopathy
CT Chest 02/26/25- Progressive moderate to large complex loculated hydropneumothorax on the right, as described. Some of the fluid appears slightly increased in attenuation, which could reflect an element of hemorrhage. Intraluminal opacity is
demonstrated in the right upper and lower lobe bronchus, consistent with mucous plugging. Progressive airspace opacity throughout the right hemithorax. Likely progressive atelectasis. There are some areas of patchy consolidation in the mid to lower
lung zone. The possibility of superimposed pneumonia cannot be excluded. Suggested mild volume loss with slight shift of the mediastinal structures to the left compared to the prior examination. A small left pleural effusion has developed. No
significant change in mediastinal adenopathy.
CT neck 05/03/21--severe degenerative/arthritic changes noted on the left side where the collar bone and chest bone or sternum meet -Sternoclavicular-which could explain the lump that he feels,, some carotid artery closure was noted and warrants
carotid ultrasounds, incidentally, his epiglottis also had a lot of calcifications which sometimes can be seen with people that have swallowing difficulties-Patient notified-we'll discuss carotid ultrasounds at next visit.�������
CT head angiogram 07/31/2023-no CT evidence for intracranial aneurysm
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
Brain MRA 06/28/21-no hemodynamically significant stenosis, branch occlusion or aneurysm�������
Neck MRA 06/28/21-no significant carotid plaque formation or hemodynamically significant stenosis
Echocardiogram 12/25/19-EF 65-70%�������
Echocardiogram 04/18/2024-EF 45-50%
ECHO 11/18/24- Mildly reduced left ventricular systolic function. Left ventricular ejection fraction is 45%. Mild mitral stenosis. Mild/moderate mitral regurgitation. Normal functioning mechanical prosthetic aortic valve replacement. Peak/mean
gradients are 7/3 mmHg. No aortic regurgitation is seen. Compared to 04/18/24: LVEF is similar (prior 45-50%). MR has progressed from mild to mild/moderate.
Nuclear stress test 05/17/21-Systolic function moderately reduced, EF 41%, moderate risk study.
Cardiac catheterization 08/13/2024-successful PCI mid LAD distal stent edge haziness and 80% ISR lesion with reduction in stenosis, successful PCI 90% DE LOS SANTOS/LAD with reduction of stenosis to 0% with subsequent complication by dissection of DE LOS SANTOS graft
after post dilation
PSG around 2006 AHI-36, desaturation stefano 85%, CPAP 7-cm�������
HST-after 80 pound weight loss-05/23/21-ROSE-1.4, desaturation stefano 89%.
-----
Total time spent on this consultation/encounter __50__ minutes which includes review of history, physical exam, medications, laboratory data, personal review of imaging, extensive review of outpatient records, discussion with care team and
respiratory therapy.
Subjective Data
-
Date of Service:
Date of Service: February 28, 2025
Chief Complaint: Pulmonary Follow Up
Subjective:
Doing well, stable on RA
Chest tube remains
at bedside
Objective Data
Data Reviewed
Vital Signs / I&O / Oxygen:
Vital Signs
Temp Pulse Resp BP Pulse Ox
98.7 F 55 16 110/68 98
02/28/25 11:41 02/28/25 03:26 02/28/25 11:41 02/28/25 03:26 02/28/25 11:41
Intake and Output
02/27/25 02/28/25 03/01/25
06:59 06:59 06:59
Intake Total 300 / 300
Output Total 690 / 690 1395 / 1395 400 / 400
Balance -690 / -690 -1095 / -1095 -400 / -400
SaO2 98
Nasal Cannula flow liters per 1
minute
Physical Exam
General: Comfortable and Good Appetite
HEENT: Normocephalic, Anicteric and Moist Mucous Membranes
Cardiovascular: S1-S2 and Regular Rhythm
Respiratory: Clear, Non-Labored Respirations and Chest Tube
GI: Soft and Non Distended
Neurology: Awake, Alert, Oriented and No Motor Deficits
Skin: Warm, Dry and Good Color
Labs/Micro/Reports
Lab Data
02/28/25 03:41
02/28/25 03:41
Laboratory Results
02/28/25
03:41
PT 30.4 H
INR 2.92
Microbiology
02/26/25 16:11 Pleural Fluid Body Fluid Culture - Preliminary
Gram negative bacilli
02/26/25 16:11 Pleural Fluid Gram Stain - Preliminary
02/26/25 16:11 Pleural Fluid Fungal Smear - Final
No yeast or fungal elements seen.
[2025-02-28] MEDS: ROXICODONE 5 MG PO (11:57)
[2025-02-28] MEDS: NOVOLOG FLEXPEN-MODERATE RESISTANCE 3 UNITS SC (12:51)
[2025-02-28 15:11] VITALS: BP 121/71
[2025-02-28] MEDS: ROCEPHIN 2000 MG IV (16:47)
[2025-02-28] MEDS: STERILE WATER FOR INJECTION 20 ML IV (16:48)
[2025-02-28 17:17] LABS: Glucose - Point of Care 253 mg/dl (70-99)
[2025-02-28] MEDS: VITAMIN D3 (cholecalciferol) 25 MCG PO (17:24)
[2025-02-28] MEDS: LIPITOR 40 MG PO (17:24)
[2025-02-28] MEDS: ZETIA 10 MG PO (17:24)
[2025-02-28] MEDS: NOVOLOG FLEXPEN-MODERATE RESISTANCE 5 UNITS SC (17:27)
--- NOTE | 2025-02-28 18:18 | PTCARENOTE ---
assessment and vitals stable as documented. pt OOB for a few hours but became fatigued. Mild SOB x1 - relieved w o2. at bedside most of day,
[2025-02-28 19:55] VITALS: BP 126/73
[2025-02-28 22:27] LABS: Glucose - Point of Care 208 mg/dl (70-99)
[2025-02-28 22:30] VITALS: BP 112/60
[2025-02-28] MEDS: LANTUS 0.21 UNITS SC (22:30)
[2025-02-28] MEDS: DESYREL 75 MG PO (22:30)
[2025-03-01] MEDS: TYLENOL 1000 MG PO (01:27)
[2025-03-01 04:39] VITALS: BP 94/52
[2025-03-01 05:02] VITALS: BMI 25.5
--- NOTE | 2025-03-01 05:10 | W.PN.CT ---
Today's Communication / Plan
-
Plan:
-No major issues overnight
-Chest tube on -20 cmh2o wall suction, drained 270/620 (serous)
-Receiving Lytic therapy per Pulm until Friday 03/02
-For repeat CT of chest on Sunday
-CXR this AM unchanged on my assessment, F/U official report
-Has PICC line and on Rocephin for Klebsiella oxytoca from pleural fluid 02/17/25
-Wound care following sacral decubitus ulcer
-On Coumadin for mechanical AVR, received 2.5 on 02/26 and 2.5 on 02/27, held yesterday 02/28, will hold again today; INR 2.07-> 2.92-> 3.13 today
-OOB into chair/Ambulate
Assessment / Plan
-
75 year old male redo CABG August 2024 and recent robotic assisted right decortication and pleurodesis by Dr. Alejandre on 02/04/2025 for entrapped right lower lobe lung with recurrent pleural effusions and respiratory failure with recurrent right
pleural effusion and Klebsiella oxytoca empyema
# Large complex loculated hydropneumothorax on the right
# Acute respiratory insufficiency on LFNC
# SOB
- s/p IR guided [address] on R, 300 cc out in IR
- continue Ceftriaxone 2G IV daily (end date 03/30) via RUE PICC
- consult pulmonary, considering lytics
- Amio for AF prophylaxis s/p lung surgery
- IS, OOB, PT
# s/p Mechanical AVR (On-X) 2008
- continue Warfarin 5mg daily
- follow INR
# CAD s/p CABG (2024)
- continue Lipitor, Toprol, Plavix, CoQ10, Zetia, Bumex
# T2DM w/neuropathy
- continue diabetic diet
- continue Januvia, Glargine, Farxiga, gabapentin
- POC glucose AC + HS w/SSI
# BPH
- continue Flomax
# Chronic sacral wound present on admission
- consult wound
- offload pressure
Discussed patient care with: Cardiology, Nursing, Respiratory Therapy, Pharmacy and Care Team
Subjective
-
Date of Service: March 01, 2025
Pt c/o mild chest tube insertion site pain, otherwise feels well
Objective Data
-
Lab Results
02/28/25 03:41
02/28/25 03:41
PT 30.4 Sec (11.4-14.6) H 02/28/25 03:41
INR 2.92 02/28/25 03:41
APTT 44.7 Sec (23.4-35.0) H 02/27/25 04:28
Vital Signs
Vital Signs
Temp Pulse Resp BP Pulse Ox
98.3 F 48 18 94/52 96
03/01/25 05:02 03/01/25 05:00 03/01/25 05:02 03/01/25 04:39 03/01/25 05:02
CT Intake/Output/Weight
02/28/25 02/28/25 03/01/25
06:59 18:59 06:59
Output Total 385 / 1395 1425 / 2125 700 / 2125
Balance -385 / -1095 -1425 / -2125 -700 / -2125
SaO2: 96 (RA)
Physical Exam
-
General: Awake, Oriented and AOx3
Cardiovascular: Regular rate & rhythm, No Murmurs, No Rub and No Gallop
Respiratory: Decreased Breath Sounds (on right, otherwise clear)
Sternum: Stable
Incision: Clean, Dry, Intact and Dressing Intact
Extremities: Other (+trace edema)
Data Reviewed
-
Lab Results: Results Reviewed
Medications: Active Meds Reviewed
Chest X-Ray: Report Reviewed and Image Reviewed
CT Scan: Report Reviewed and Image Reviewed
ECG: Report Reviewed and Image Reviewed
[2025-03-01 05:23] LABS: INR 3.13; PT 32.0 Sec (11.4-14.6)
[2025-03-01 07:16] VITALS: BP 119/61
[2025-03-01 08:09] LABS: Glucose - Point of Care 94 mg/dl (70-99)
[2025-03-01] MEDS: NOVOLOG FLEXPEN-MODERATE RESISTANCE SC (08:32)
[2025-03-01] MEDS: FARXIGA 10 MG PO (09:49)
[2025-03-01] MEDS: MUCINEX 1200 MG PO ×2 (09:49→19:31)
[2025-03-01] MEDS: COLACE 100 MG PO ×2 (09:49→19:31)
[2025-03-01] MEDS: FLOMAX 0.4 MG PO (09:49)
[2025-03-01] MEDS: TOPROL XL 25 MG PO (09:50)
[2025-03-01] MEDS: NEURONTIN 100 MG PO ×3 (09:50→22:45)
[2025-03-01] MEDS: PACERONE 200 MG PO (09:50)
[2025-03-01] MEDS: THERAGRAN 1 TABLET PO (09:50)
[2025-03-01] MEDS: PLAVIX 75 MG PO (09:51)
[2025-03-01] MEDS: JANUVIA 100 MG PO (09:51)
--- NOTE | 2025-03-01 09:53 | W.PN.PUL3 ---
Today's Communication / Plan
-
lytic trial today, continue to monitor output
CT chest in AM
encouraged ambulation, OOB to chair/PT/IS
Assessment
-
75-year-old non-smoking male with a history of hypertension, hyperlipidemia, GERD, diabetes, CAD/aortic stenosis, PAT had redo CABG August 2024 and recent robotic assisted right decortication and pleurodesis by Dr. Alejandre on 02/04/2025 for entrapped
right lower lobe lung with recurrent pleural effusions and respiratory failure, recently discharged 02/21/25 for complex fluid. He presents again with increasing shortness of breath, chest congestion, cough wtih productive mucus that is greenish at
times bloody. CT showing similar findings to last admission. We are consulted for readmission for complex R pleural fluid.
Acute on chronic recurrent right pleural effusion
Readmission 02/26, discharged 02/21/25
Worsening chest congestion, cough w/ productive sputum
Leukocytosis
Yyflym-ihqthfblef-kmrcwncqwz 9.8-stable
Hyperglycemia
Conditions present prior to admission:
Recurrent right pleural effusion s/p thora 12/03/24, 12/18/24
status post RATS decortication of right lower lobe and right middle lobes, decortication of chest wall due to thick pleura rind, pleurodesis 02/04/2025
discharged home on 02/11/25 w/ right pleural chest tube to Heimlich valve and leg bag gravity drainage
Readm 02/15/25-02/21/25: s/p lysis attempt 02/16/25; s/p insertion of chest tube 'B' large bore/anterior R chest placement 02/17/[address] 'A' was dcd 02/19; R pleur CT 'B' dcd on 02/20
Pleural fluid cx with Klebsiella oxytoca -ID switched on 02/19 from Zosyn to Ceftriaxone 2g IV q24h x 6 weeks through 03/30/25/picc line placed 02/20
CAD/aortic stenosis/Mechanical AVR /CABG 2008-chronic anticoagulation (Coumadin)
s/p PCI 2024 complicated by spiral dissection of the DE LOS SANTOS subsequent redo CABG 08/2024
BPH.
PAT.
Diabetes/neuropathy.
GERD.
Hypertension.
Hyperlipidemia.
Plan
At this time, patient appears to be comfortable, stable on RA
He notes ongoing complaints of chest congestion, productive cough
CT reviewed showing similar findings to last hospitalization--extensive records and treatments are reviewed/as above
Recent discharged 02/21 following attempts at chest tube drainage
s/p IR guided chest tube placement 02/26, fluid studies pH 6.8 and glucose and Glucose < 30, consistent with Empyema
Start intra-pleural tPA/DNAse, received 02/27. f/u CT chest Sunday to evaluate response to lysis.
last 12 hrs, 225 ml sanguinous drainage from chest tube. No air leak noted
Output: 400, 1395, 690--lytic today 03/[address] Chest 03/02, not improving, would consider CTS re-eval for OR again
Consideration to transfer to tertiary center as well if surgical options are limited at
Placed on IV abx for continued treatment
Micro reviewed--
+ Klebsiella oxy on prior pleural culture from 02/17/25
+ E coli sputum 08/23/24
Speech eval on prior admission noted 08/18/24-Patient with elevated risk factors for dysphagia (i.e., s/p CABG with HAILEY, sternotomy; VDRF 08/13-08/17) and chronic dysphagia (i.e., VFSS 12/10/2020 WFL oral/pharyngeal, esophageal stasis). Vocal quality
WFL-mild s/p extubation. WFL-mild oral stage differences.
Ongoing speech issues, micro data suggesting aspiration is an issue or contributing cause
Repeat speech eval again
Repeat imaging following chest tube placement
DVT prophylaxis-on Coumadin
Nutrition
Physical therapy
Difficult situation with recurrent readmissions
Reviewed plan of care with CTS team, patient and at bedside
Diagnostic data:
Chest x-ray 02/15/2025-progressive accumulation of right pleural fluid, no pneumothorax
Chest x-ray 02/16/2025-right chest tube present with moderate right pleural effusion
CT chest 02/15/2025-complex moderate right pleural effusion, numerous foci of gas are seen throughout the fluid likely multiloculated, mild mediastinal adenopathy
CT Chest 02/26/25- Progressive moderate to large complex loculated hydropneumothorax on the right, as described. Some of the fluid appears slightly increased in attenuation, which could reflect an element of hemorrhage. Intraluminal opacity is
demonstrated in the right upper and lower lobe bronchus, consistent with mucous plugging. Progressive airspace opacity throughout the right hemithorax. Likely progressive atelectasis. There are some areas of patchy consolidation in the mid to lower
lung zone. The possibility of superimposed pneumonia cannot be excluded. Suggested mild volume loss with slight shift of the mediastinal structures to the left compared to the prior examination. A small left pleural effusion has developed. No
significant change in mediastinal adenopathy.
CT neck 05/03/21--severe degenerative/arthritic changes noted on the left side where the collar bone and chest bone or sternum meet -Sternoclavicular-which could explain the lump that he feels,, some carotid artery closure was noted and warrants
carotid ultrasounds, incidentally, his epiglottis also had a lot of calcifications which sometimes can be seen with people that have swallowing difficulties-Patient notified-we'll discuss carotid ultrasounds at next visit.�������
CT head angiogram 07/31/2023-no CT evidence for intracranial aneurysm
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
Brain MRA 06/28/21-no hemodynamically significant stenosis, branch occlusion or aneurysm�������
Neck MRA 06/28/21-no significant carotid plaque formation or hemodynamically significant stenosis
Echocardiogram 12/25/19-EF 65-70%�������
Echocardiogram 04/18/2024-EF 45-50%
ECHO 11/18/24- Mildly reduced left ventricular systolic function. Left ventricular ejection fraction is 45%. Mild mitral stenosis. Mild/moderate mitral regurgitation. Normal functioning mechanical prosthetic aortic valve replacement. Peak/mean
gradients are 7/3 mmHg. No aortic regurgitation is seen. Compared to 04/18/24: LVEF is similar (prior 45-50%). MR has progressed from mild to mild/moderate.
Nuclear stress test 05/17/21-Systolic function moderately reduced, EF 41%, moderate risk study.
Cardiac catheterization 08/13/2024-successful PCI mid LAD distal stent edge haziness and 80% ISR lesion with reduction in stenosis, successful PCI 90% DE LOS SANTOS/LAD with reduction of stenosis to 0% with subsequent complication by dissection of DE LOS SANTOS graft
after post dilation
PSG around 2006 AHI-36, desaturation stefano 85%, CPAP 7-cm�������
HST-after 80 pound weight loss-05/23/21-ROSE-1.4, desaturation stefano 89%.
-----
Total time spent on this consultation/encounter __35__ minutes which includes review of history, physical exam, medications, laboratory data, personal review of imaging, extensive review of outpatient records, discussion with care team and
respiratory therapy.
Subjective Data
-
Date of Service:
Date of Service: March 01, 2025
Chief Complaint: Pulmonary Follow Up
Subjective:
no new complaints, stable on RA
output about 600mL in past 24 hours
at bedside
Objective Data
Data Reviewed
Vital Signs / I&O / Oxygen:
Vital Signs
Temp Pulse Resp BP Pulse Ox
97.3 F 58 20 119/61 97
03/01/25 07:17 03/01/25 09:50 03/01/25 07:17 03/01/25 09:50 03/01/25 07:17
Intake and Output
02/28/25 03/01/25 03/02/25
06:59 06:59 06:59
Intake Total 300 / 300
Output Total 1395 / 1395 2395 / 2395
Balance -1095 / -1095 -2395 / -2395
SaO2 97
Nasal Cannula flow liters per 1
minute
Physical Exam
General: Comfortable and Good Appetite
HEENT: Normocephalic, Anicteric and Moist Mucous Membranes
Cardiovascular: S1-S2 and Regular Rhythm
Respiratory: Clear, Non-Labored Respirations and Chest Tube
GI: Soft and Non Distended
Neurology: Awake, Alert, Oriented and No Motor Deficits
Skin: Warm, Dry and Good Color
Labs/Micro/Reports
Lab Data
02/28/25 03:41
02/28/25 03:41
Laboratory Results
03/01/25
04:41
PT 32.0 H
INR 3.13
Microbiology
02/26/25 16:11 Pleural Fluid Body Fluid Culture - Final
Klebsiella oxytoca
02/26/25 16:11 Pleural Fluid Gram Stain - Final
02/26/25 16:11 Pleural Fluid Acid Fast Bacilli Smear - Preliminary
02/26/25 16:11 Pleural Fluid Acid Fast Bacilli Culture - Preliminary
02/26/25 16:11 Pleural Fluid Fungal Smear - Final
No yeast or fungal elements seen.
[2025-03-01] MEDS: BUMEX 2 MG PO (09:54)
[2025-03-01 12:01] LABS: Glucose - Point of Care 191 mg/dl (70-99)
[2025-03-01 12:10] VITALS: BP 126/73
[2025-03-01] MEDS: NOVOLOG FLEXPEN-MODERATE RESISTANCE 1 UNITS SC (12:38)
[2025-03-01] MEDS: ROXICODONE 5 MG PO ×2 (12:41→22:48)
--- NOTE | 2025-03-01 13:00 | PTCARENOTE ---
received patient this am in bed, monitor shows NSR with a first degree. VSS. right pleural CT to - 20cm draining dark red serosanguineous fluid. dressing changed by CVPA. patient c/o pain at site, Roxicodone po given as ordered. lung wright right
side, rhonchi., o2 sat 96%.right upper PIC line checked by vascular access team. patient has ok appetite, he does drink his fair life protein drinks TID. patient able to ambulate to BR with assist of 1 and walker, had BM this am. patient presently
sitting up in chair, at bedside.
[2025-03-01] MEDS: LIDOCAINE 4% PATCH 1 PATCH TOPICAL (13:48)
--- NOTE | 2025-03-01 13:59 | PTCARENOTE ---
lidocaine patch placed on right pleural CT side below CT, as ordered. patient stated it feels like it is burning.
[2025-03-01 15:33] VITALS: BP 117/73
[2025-03-01] MEDS: ROCEPHIN 2000 MG IV (16:16)
[2025-03-01] MEDS: STERILE WATER FOR INJECTION 20 ML IV (16:17)
[2025-03-01] MEDS: FLUSH (NSS) 2 FLUSH IV (16:18)
--- NOTE | 2025-03-01 16:38 | PTCARENOTE ---
changed sacrum dsg. as ordered. wound is pink, clean, no drainage noted.
--- NOTE | 2025-03-01 17:18 | PN.IRAD.UPD ---
Update Note - IRAD
- -
TPA 8 MG , DORNASE 5 MG instilled via right chest tube at bedside. injection and chest tube clamped [id number]. Rn notified . Patient tolerated procedure well.
[2025-03-01 17:22] LABS: Glucose - Point of Care 200 mg/dl (70-99)
[2025-03-01] MEDS: ZETIA 10 MG PO (17:32)
[2025-03-01] MEDS: VITAMIN D3 (cholecalciferol) 25 MCG PO (17:32)
[2025-03-01] MEDS: NOVOLOG FLEXPEN-MODERATE RESISTANCE 3 UNITS SC (17:32)
[2025-03-01] MEDS: LIPITOR 40 MG PO (17:32)
--- NOTE | 2025-03-01 18:08 | PTCARENOTE ---
JOSEPH sandoval came up lytic therapy done, CT is presently clamped and will unclamp at 1910. patient was instructed to turn every 30 minutes for [address] clamped. patient and verbalized understanding.
[2025-03-01 18:52] VITALS: BP 119/68
--- NOTE | 2025-03-01 19:16 | PTCARENOTE ---
walking rounds completed and CT unclamped as ordered.
[2025-03-01] MEDS: REMOVE LIDOCAINE PATCH 1 PATCH REMOVE (19:31)
[2025-03-01 22:21] VITALS: BP 111/68
[2025-03-01 22:25] LABS: Glucose - Point of Care 177 mg/dl (70-99)
[2025-03-01] MEDS: DESYREL 75 MG PO (22:45)
[2025-03-01] MEDS: LANTUS 0.21 UNITS SC (22:45)
--- NOTE | 2025-03-02 00:17 | PTCARENOTE ---
Tele monitor remains SB-NSR w/ 1st AV block. HR in the 50-60's at rest. Pt c/o 5/10 discomfort at the chest tube site. Roxicodone 5mg administered--See AUG. Right chest tube draining serosanguineous fluid, and currently on -20cm of suction. Pt c/o
SOB and having difficulty breathing. Sating 95% RA, this RN applied 2L for comfort. Pt currently sating 99% and reports relief. Pt aware of POC, and rings appropriately.
[2025-03-02 04:38] VITALS: BP 115/72
[2025-03-02 04:53] VITALS: BMI 25.6
--- NOTE | 2025-03-02 05:31 | W.PN.CT ---
Addendum entered and electronically signed by Patrice Delatorre MD 03/02/25 10:12:
I saw and examined the patient.
The PA's note was reviewed and I agree with the note.
Comment:
Patient received tPA again yesterday (second administration), chest tube output 290/480 (serous)
Will discuss repeat lytic therapy today (+/-)
Will check repeat noncontrast CT chest tomorrow
Original Note:
Today's Communication / Plan
-
Plan:
-No major issues overnight
-Chest tube on -20 cmh2o wall suction, drained 290/480 (serous). He appears to be lying on CT obstructing drainage at times, had to have him turn on his left side and milk it to get to drain post lytic tx yesterday
-Receiving Lytic therapy per Pulm (received on 02/27 and 03/01)
-For repeat CT of chest today vs tomorrow
-CXR this AM has improved on my assessment, F/U official report
-Has PICC line and on Rocephin for Klebsiella oxytoca from pleural fluid 02/17/25
-Wound care following sacral decubitus ulcer
-On Coumadin for mechanical AVR, received 2.5 on 02/26 and 2.5 on 02/27, held 02/28 and 03/01, will discuss Coumadin dose today; INR 2.07-> 2.92-> 3.13-> 2.31 today
-OOB into chair/Ambulate
-Will likely go home with Pleurx catheter in 1-2 days. May benefit from anterior or mid-axillary chest tube placement before d/c home to avoid lying on it and obstructing drainage
Assessment / Plan
-
75 year old male redo CABG August 2024 and recent robotic assisted right decortication and pleurodesis by Dr. Alejandre on 02/04/2025 for entrapped right lower lobe lung with recurrent pleural effusions and respiratory failure with recurrent right
pleural effusion and Klebsiella oxytoca empyema
# Large complex loculated hydropneumothorax on the right
# Acute respiratory insufficiency on LFNC
# SOB
- s/p IR guided [address] on R, 300 cc out in IR
- continue Ceftriaxone 2G IV daily (end date 03/30) via RUE PICC
- consult pulmonary, considering lytics
- Amio for AF prophylaxis s/p lung surgery
- IS, OOB, PT
# s/p Mechanical AVR (On-X) 2008
- continue Warfarin 5mg daily
- follow INR
# CAD s/p CABG (2024)
- continue Lipitor, Toprol, Plavix, CoQ10, Zetia, Bumex
# T2DM w/neuropathy
- continue diabetic diet
- continue Januvia, Glargine, Farxiga, gabapentin
- POC glucose AC + HS w/SSI
# BPH
- continue Flomax
# Chronic sacral wound present on admission
- consult wound
- offload pressure
Discussed patient care with: Cardiology, Nursing, Respiratory Therapy, Pharmacy and Care Team
Subjective
-
Date of Service: March 02, 2025
Pt c/o mild chest tube insertion site pain, otherwise feels well
Objective Data
-
Lab Results
02/28/25 03:41
02/28/25 03:41
PT 32.0 Sec (11.4-14.6) H 03/01/25 04:41
INR 3.13 03/01/25 04:41
APTT 44.7 Sec (23.4-35.0) H 02/27/25 04:28
Vital Signs
Vital Signs
Temp Pulse Resp BP Pulse Ox
97.7 F 51 18 115/72 99
03/02/25 04:36 03/02/25 05:00 03/02/25 04:36 03/02/25 04:38 03/02/25 04:38
CT Intake/Output/Weight
03/01/25 03/01/25 03/02/25
06:59 18:59 06:59
Intake Total 480 / 720 240 / 720
Output Total 970 / 2395 1890 / 3330 1440 / 3330
Balance -970 / -2395 -1410 / -2610 -1200 / -2610
SaO2: 99 (RA)
Physical Exam
-
General: Awake, Oriented and AOx3
Cardiovascular: Regular rate & rhythm, No Murmurs and No Rub
Respiratory: Decreased Breath Sounds (on right)
Sternum: Stable
Incision: Clean, Dry, Intact and Dressing Intact
Extremities: No Edema
Data Reviewed
-
Lab Results: Results Reviewed
Medications: Active Meds Reviewed
Chest X-Ray: Report Reviewed and Image Reviewed
ECG: Report Reviewed and Image Reviewed
[2025-03-02 05:41] LABS: INR 2.31; PT 25.4 Sec (11.4-14.6)
[2025-03-02 05:46] LABS: Prealbumin (Transthyretin) 10.9 mg/dl (17.6-36.0)
[2025-03-02 07:31] VITALS: BP 123/72
[2025-03-02 08:42] LABS: Glucose - Point of Care 158 mg/dl (70-99)
[2025-03-02] MEDS: NOVOLOG FLEXPEN-MODERATE RESISTANCE 1 UNITS SC (09:21)
[2025-03-02] MEDS: NEURONTIN 100 MG PO ×3 (09:22→21:43)
[2025-03-02] MEDS: FLOMAX 0.4 MG PO (09:22)
[2025-03-02] MEDS: PACERONE 200 MG PO (09:23)
[2025-03-02] MEDS: MUCINEX 1200 MG PO ×2 (09:23→19:45)
[2025-03-02] MEDS: TOPROL XL 25 MG PO (09:23)
[2025-03-02] MEDS: JANUVIA 100 MG PO (09:23)
[2025-03-02] MEDS: THERAGRAN 1 TABLET PO (09:23)
[2025-03-02] MEDS: FARXIGA 10 MG PO (09:24)
[2025-03-02] MEDS: COLACE 100 MG PO ×2 (09:24→19:46)
[2025-03-02] MEDS: BUMEX 2 MG PO (09:25)
[2025-03-02] MEDS: LIDOCAINE 4% PATCH 1 PATCH TOPICAL (09:28)
[2025-03-02] MEDS: PLAVIX 75 MG PO (09:28)
--- NOTE | 2025-03-02 10:13 | PTCARENOTE ---
Addendum entered by Michelle Salas RN 03/02/25 13:28:
CT atrium full, changed by Dr. Delatorre.
Original Note:
received patient this am in bed, sleepy. returned to room and encouraged patient to get up OOB for breakfast, patient up, ambulated well to chair. right pleural CT to -20cm suctions draining serosanguineous fluid. patient c/o burning at CT site, no
crepitus noted, no air leaks noted. lidocaine patch applied below CT site. monitor shows NSR with first degree. VSS. lung wright coarse, on RA , o2 sat 97%.
[2025-03-02 10:14] VITALS: BMI 25.6
--- NOTE | 2025-03-02 10:34 | W.PN.PUL3 ---
Today's Communication / Plan
-
SOB today, CXR appears improved this AM, O2 applied nocturnally overnight
Chest tube with tidaling, could be entrapped lung space either revealed or developing
For CT chest tomorrow per team
Will add nebs for SOB
Hold lytics today, can reassess in AM post CT chest
Assessment
-
75-year-old non-smoking male with a history of hypertension, hyperlipidemia, GERD, diabetes, CAD/aortic stenosis, PAT had redo CABG August 2024 and recent robotic assisted right decortication and pleurodesis by Dr. Alejandre on 02/04/2025 for entrapped
right lower lobe lung with recurrent pleural effusions and respiratory failure, recently discharged 02/21/25 for complex fluid. He presents again with increasing shortness of breath, chest congestion, cough wtih productive mucus that is greenish at
times bloody. CT showing similar findings to last admission. We are consulted for readmission for complex R pleural fluid.
Acute on chronic recurrent right pleural effusion s/p chest tube 02/26/25
Readmission 02/26, discharged 02/21/25
Worsening chest congestion, cough w/ productive sputum
Leukocytosis
Wxlakh-zkbpamnelp-jaqvrjzumg 9.8-stable
Hyperglycemia
Conditions present prior to admission:
Recurrent right pleural effusion s/p thora 12/03/24, 12/18/24
status post RATS decortication of right lower lobe and right middle lobes, decortication of chest wall due to thick pleura rind, pleurodesis 02/04/2025
discharged home on 02/11/25 w/ right pleural chest tube to Heimlich valve and leg bag gravity drainage
Readm 02/15/25-02/21/25: s/p lysis attempt 02/16/25; s/p insertion of chest tube 'B' large bore/anterior R chest placement 02/17/[address] 'A' was dcd 02/19; R pleur CT 'B' dcd on 02/20
Pleural fluid cx with Klebsiella oxytoca -ID switched on 02/19 from Zosyn to Ceftriaxone 2g IV q24h x 6 weeks through 03/30/25/picc line placed 02/20
CAD/aortic stenosis/Mechanical AVR /CABG 2008-chronic anticoagulation (Coumadin)
s/p PCI 2024 complicated by spiral dissection of the DE LOS SANTOS subsequent redo CABG 08/2024
BPH.
PAT.
Diabetes/neuropathy.
GERD.
Hypertension.
Hyperlipidemia.
Plan
At this time, patient appears to be comfortable, stable on RA
Has needed O2 at night recently (prior sleep study as OP following weight loss, negative for OSAS)
He notes ongoing complaints of chest congestion, productive cough
CT reviewed showing similar findings to last hospitalization--extensive records and treatments are reviewed/as above
Recent discharged 02/21 following attempts at chest tube drainage
s/p IR guided chest tube placement 02/26, fluid studies pH 6.8 and glucose and Glucose < 30, consistent with Empyema
Start intra-pleural tPA/DNAse, received 02/27.
last 12 hrs, 225 ml sanguinous drainage from chest tube.
Tidaling noted today, suspect he may have entrapped lung
Output: 400, 1395, 690-- s/p lytic therapy 03/01
Can hold off today
If CT Chest 03/03, not improving, would consider CTS re-eval for OR again
Consideration to transfer to tertiary center as well if surgical options are limited at
Placed on IV abx for continued treatment
Micro reviewed--
+ Klebsiella oxy on prior pleural culture from 02/17/25
+ E coli sputum 08/23/24
Speech eval on prior admission noted 08/18/24-Patient with elevated risk factors for dysphagia (i.e., s/p CABG with HAILEY, sternotomy; VDRF 08/13-08/17) and chronic dysphagia (i.e., VFSS 12/10/2020 WFL oral/pharyngeal, esophageal stasis). Vocal quality
WFL-mild s/p extubation. WFL-mild oral stage differences.
Ongoing speech issues, micro data suggesting aspiration is an issue or contributing cause
Repeat speech eval again
Repeat imaging following chest tube placement
DVT prophylaxis-on Coumadin
Nutrition
Physical therapy
Difficult situation with recurrent readmissions
Reviewed plan of care with CTS team, patient and at bedside
Diagnostic data:
Chest x-ray 02/15/2025-progressive accumulation of right pleural fluid, no pneumothorax
Chest x-ray 02/16/2025-right chest tube present with moderate right pleural effusion
CT chest 02/15/2025-complex moderate right pleural effusion, numerous foci of gas are seen throughout the fluid likely multiloculated, mild mediastinal adenopathy
CT Chest 02/26/25- Progressive moderate to large complex loculated hydropneumothorax on the right, as described. Some of the fluid appears slightly increased in attenuation, which could reflect an element of hemorrhage. Intraluminal opacity is
demonstrated in the right upper and lower lobe bronchus, consistent with mucous plugging. Progressive airspace opacity throughout the right hemithorax. Likely progressive atelectasis. There are some areas of patchy consolidation in the mid to lower
lung zone. The possibility of superimposed pneumonia cannot be excluded. Suggested mild volume loss with slight shift of the mediastinal structures to the left compared to the prior examination. A small left pleural effusion has developed. No
significant change in mediastinal adenopathy.
CT neck 05/03/21--severe degenerative/arthritic changes noted on the left side where the collar bone and chest bone or sternum meet -Sternoclavicular-which could explain the lump that he feels,, some carotid artery closure was noted and warrants
carotid ultrasounds, incidentally, his epiglottis also had a lot of calcifications which sometimes can be seen with people that have swallowing difficulties-Patient notified-we'll discuss carotid ultrasounds at next visit.�������
CT head angiogram 07/31/2023-no CT evidence for intracranial aneurysm
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
Brain MRA 06/28/21-no hemodynamically significant stenosis, branch occlusion or aneurysm�������
Neck MRA 06/28/21-no significant carotid plaque formation or hemodynamically significant stenosis
Echocardiogram 12/25/19-EF 65-70%�������
Echocardiogram 04/18/2024-EF 45-50%
ECHO 11/18/24- Mildly reduced left ventricular systolic function. Left ventricular ejection fraction is 45%. Mild mitral stenosis. Mild/moderate mitral regurgitation. Normal functioning mechanical prosthetic aortic valve replacement. Peak/mean
gradients are 7/3 mmHg. No aortic regurgitation is seen. Compared to 04/18/24: LVEF is similar (prior 45-50%). MR has progressed from mild to mild/moderate.
Nuclear stress test 05/17/21-Systolic function moderately reduced, EF 41%, moderate risk study.
Cardiac catheterization 08/13/2024-successful PCI mid LAD distal stent edge haziness and 80% ISR lesion with reduction in stenosis, successful PCI 90% DE [place] SANTOS/LAD with reduction of stenosis to 0% with subsequent complication by dissection of DE LOS SANTOS graft
after post dilation
PSG around 2006 AHI-36, desaturation stefano 85%, CPAP 7-cm�������
HST-after 80 pound weight loss-05/23/21-ROSE-1.4, desaturation stefano 89%.
-----
Total time spent on this consultation/encounter __40__ minutes which includes review of history, physical exam, medications, laboratory data, personal review of imaging, extensive review of outpatient records, discussion with care team and
respiratory therapy.
Subjective Data
-
Date of Service:
Date of Service: March 02, 2025
Chief Complaint: Pulmonary Follow Up
Subjective:
More SOB today, was needing O2 nocturnally but not during day
Chest tube with tidaling, low output
Objective Data
Data Reviewed
Vital Signs / I&O / Oxygen:
Vital Signs
Temp Pulse Resp BP Pulse Ox
97.6 F 52 18 123/72 99
03/02/25 07:28 03/02/25 09:25 03/02/25 07:28 03/02/25 09:03/02/25 07:28
Intake and Output
03/01/25 03/02/25 03/03/25
06:59 06:59 06:59
Intake Total 720 / 720
Output Total 2395 / 2395 3330 / 3330
Balance -2395 / -2395 -2610 / -2610
SaO2 99
Nasal Cannula flow liters per 2
minute
Physical Exam
General: Comfortable and Good Appetite
HEENT: Normocephalic, Anicteric and Moist Mucous Membranes
Cardiovascular: S1-S2 and Regular Rhythm
Respiratory: Clear, Non-Labored Respirations and Chest Tube
GI: Soft and Non Distended
Neurology: Awake, Alert, Oriented and No Motor Deficits
Skin: Warm, Dry and Good Color
Labs/Micro/Reports
Lab Data
02/28/25 03:41
02/28/25 03:41
Laboratory Results
03/02/25
04:46
PT 25.4 H
INR 2.31
Microbiology
02/26/25 16:11 Pleural Fluid Body Fluid Culture - Final
Klebsiella oxytoca
02/26/25 16:11 Pleural Fluid Gram Stain - Final
02/26/25 16:11 Pleural Fluid Acid Fast Bacilli Smear - Preliminary
02/26/25 16:11 Pleural Fluid Acid Fast Bacilli Culture - Preliminary
02/26/25 16:11 Pleural Fluid Fungal Smear - Final
No yeast or fungal elements seen.
[2025-03-02 12:16] VITALS: BP 125/66
[2025-03-02 12:43] LABS: Glucose - Point of Care 258 mg/dl (70-99)
[2025-03-02] MEDS: NOVOLOG FLEXPEN-MODERATE RESISTANCE 5 UNITS SC (12:45)
[2025-03-02 15:47] VITALS: BP 118/63
--- NOTE | 2025-03-02 16:08 | PTCARENOTE ---
CHG wipes completed. left hand had small open cut, bandage applied. sacrum dsg. changed as per ordered. scant amount of purulent drainage. surrounding skin clean, dry and intact. CT site dsg. changed as per protocol. site C/D/I and surrounding skin.
2 sutures noted intact from previous CT. patient stating he still feels 'burning' at site. discussed CHF and videos with patient and he is willing to watch videos.
[2025-03-02] MEDS: FLUSH (NSS) 2 FLUSH IV (16:19)
[2025-03-02] MEDS: ROCEPHIN 2000 MG IV (16:19)
[2025-03-02] MEDS: STERILE WATER FOR INJECTION 20 ML IV (16:20)
[2025-03-02 16:34] LABS: Glucose - Point of Care 207 mg/dl (70-99)
[2025-03-02] MEDS: NOVOLOG FLEXPEN-MODERATE RESISTANCE 3 UNITS SC (16:35)
[2025-03-02] MEDS: COUMADIN 1 MG PO (17:30)
[2025-03-02] MEDS: VITAMIN D3 (cholecalciferol) 25 MCG PO (17:30)
[2025-03-02] MEDS: ZETIA 10 MG PO (17:30)
[2025-03-02] MEDS: LIPITOR 40 MG PO (17:30)
[2025-03-02 18:39] VITALS: BP 107/63
[2025-03-02] MEDS: REMOVE LIDOCAINE PATCH 1 PATCH REMOVE (19:46)
[2025-03-02 21:42] LABS: Glucose - Point of Care 217 mg/dl (70-99)
[2025-03-02] MEDS: LANTUS 0.21 UNITS SC (21:43)
[2025-03-02] MEDS: ROXICODONE 5 MG PO (21:43)
[2025-03-02] MEDS: DESYREL 75 MG PO (21:43)
[2025-03-02 21:52] VITALS: BP 115/67
[2025-03-03] VITALS (9 sets, daily range): BP systolic 57–133; BP diastolic 63–75; BMI 24.9
--- NOTE | 2025-03-03 02:08 | PTCARENOTE ---
Received pt @ change of shift. AAOx3, VSS-- NSR w/ 1st degree AV block on monitor. Chest tube connected to wall suction-- -20cm. Blood return in RUE PICC line. New foams placed on bilateral heels. Discussed plan of care for evening. Pt verbalizes
understanding. Call xiao within reach.
--- NOTE | 2025-03-03 04:36 | W.PN.CT ---
Today's Communication / Plan
-
Plan:
-No major issues overnight
-Chest tube on -20 cmh2o wall suction, drained 210/320 (serous), milked tube last night
-Receiving Lytic therapy per Pulm (received on 02/27 and 03/01)
-For repeat CT of chest today
-CXR this AM has improved on my assessment, F/U official report
-Has PICC line and on Rocephin for Klebsiella oxytoca from pleural fluid 02/17/25
-Wound care following sacral decubitus ulcer
-On Coumadin for mechanical AVR, received 2.5 on 02/26 and 2.5 on 02/27, held 02/28 and 03/01, got 1mg Coumadin last; INR 2.07-> 2.92-> 3.13-> 2.3-> 2.27 today
-OOB into chair/Ambulate
-Will likely go home with Pleurx catheter in 1-2 days
Assessment / Plan
-
75 year old male redo CABG August 2024 and recent robotic assisted right decortication and pleurodesis by Dr. Alejandre on 02/04/2025 for entrapped right lower lobe lung with recurrent pleural effusions and respiratory failure with recurrent right
pleural effusion and Klebsiella oxytoca empyema
# Large complex loculated hydropneumothorax on the right
# Acute respiratory insufficiency on LFNC
# SOB
- s/p IR guided [address] on R, 300 cc out in IR
- continue Ceftriaxone 2G IV daily (end date 03/30) via RUE PICC
- consult pulmonary, considering lytics
- Amio for AF prophylaxis s/p lung surgery
- IS, OOB, PT
# s/p Mechanical AVR (On-X) 2008
- continue Warfarin 5mg daily
- follow INR
# CAD s/p CABG (2024)
- continue Lipitor, Toprol, Plavix, CoQ10, Zetia, Bumex
# T2DM w/neuropathy
- continue diabetic diet
- continue Januvia, Glargine, Farxiga, gabapentin
- POC glucose AC + HS w/SSI
# BPH
- continue Flomax
# Chronic sacral wound present on admission
- consult wound
- offload pressure
Discussed patient care with: Cardiology, Nursing, Respiratory Therapy, Pharmacy and Care Team
Subjective
-
Date of Service: March 03, 2025
Pt c/o mild chest tube insertion site pain, otherwise feels well
Objective Data
-
PT 25.4 Sec (11.4-14.6) H 03/02/25 04:46
INR 2.31 03/02/25 04:46
APTT 44.7 Sec (23.4-35.0) H 02/27/25 04:28
Vital Signs
Vital Signs
Temp Pulse Resp BP Pulse Ox
98.1 F 53 16 114/65 93
03/03/25 04:29 03/03/25 04:29 03/03/25 04:29 03/03/25 04:29 03/03/25 04:[address]
CT Intake/Output/Weight
03/02/25 03/02/25 03/03/25
06:59 18:59 06:59
Intake Total 240 / 720 820 / 820
Output Total 1440 / 3330 2250 / 2368 118 / 2368
Balance -1200 / -2610 -1430 / -1548 -118 / -1548
SaO2: 93 (RA)
Physical Exam
-
General: Awake, Oriented and AOx3
Cardiovascular: Regular rate & rhythm and No Murmurs
Respiratory: Decreased Breath Sounds (at bases, otherwise clear)
Sternum: Stable
Incision: Clean, Dry, Intact and Dressing Intact
Extremities: No Edema
Data Reviewed
-
Lab Results: Results Reviewed
Medications: Active Meds Reviewed
Chest X-Ray: Report Reviewed and Image Reviewed
ECG: Report Reviewed and Image Reviewed
[2025-03-03 05:00] LABS: Hematocrit 30.0 % (39.0-52.0); Hemoglobin 9.3 g/dL (13.0-18.0); Mean Corp Hgb Conc. 31.0 g/dL (33.0-37.0); Mean Corpuscular Volume 83.1 fL (80.0-94.0); Platelet Count 400 10^3/uL (130-400); Red Cell Dist. Width 17.0 % (11.5-14.5)
[2025-03-03 05:15] LABS: INR 2.27; PT 25.1 Sec (11.4-14.6)
[2025-03-03 05:23] LABS: Blood Urea Nitrogen 41 mg/dl (9-20); Calcium 8.5 mg/dl (8.4-10.2); Carbon Dioxide 30 mmol/L (22-30); Chloride 103 mmol/L (98-107); Estimated Creatinine Clearance 77 ml/min; Glucose 134 mg/dl (70-99); Magnesium 2.1 mg/dl (1.6-2.3); Potassium 3.8 mmol/L (3.5-5.1); Sodium 136 mmol/L (135-145); eGFR > 60.00
[2025-03-03 06:57] LABS: Glucose - Point of Care 137 mg/dl (70-99)
--- NOTE | 2025-03-03 08:09 | PTCARENOTE ---
received patient this am in bed, requesting to get OOB, ambulated to chair with assist of 1. patient has flat affect today, attempting to cheer up patient. monitor shows NSR with a first degree, VSS. right pleural CT to -20cm suction draining
serous/straw colored fluid. dsg. D/I, no crepitus noted. CT called for patient, patient on stretcher to chest CT.
--- NOTE | 2025-03-03 09:01 | W.PN.UPDATE ---
Update Note
Progress Note Update
Patient scheduled for IR Pleurex catheter placement. He will be followed by CT surgery (Dr. Alejandre) as an outpatient. Frequency of drainage will be daily and as needed. Patient will be followed by our in-house transitional nurses on discharge.
[2025-03-03] MEDS: PLAVIX 75 MG PO (09:24)
[2025-03-03] MEDS: BUMEX 2 MG PO (09:24)
[2025-03-03] MEDS: LIDOCAINE 4% PATCH 1 PATCH TOPICAL (09:24)
[2025-03-03] MEDS: COLACE 100 MG PO ×2 (09:24→20:01)
[2025-03-03] MEDS: FARXIGA 10 MG PO (09:24)
[2025-03-03] MEDS: MUCINEX 1200 MG PO ×2 (09:25→20:01)
[2025-03-03] MEDS: PACERONE 200 MG PO (09:25)
[2025-03-03] MEDS: NOVOLOG FLEXPEN-MODERATE RESISTANCE SC ×2 (09:26→18:26)
[2025-03-03] MEDS: TOPROL XL 25 MG PO (09:26)
[2025-03-03] MEDS: FLOMAX 0.4 MG PO (09:26)
[2025-03-03] MEDS: THERAGRAN 1 TABLET PO (09:26)
[2025-03-03] MEDS: KCL 40 MEQ PO (09:26)
[2025-03-03] MEDS: NEURONTIN 100 MG PO ×3 (09:26→22:38)
[2025-03-03] MEDS: JANUVIA 100 MG PO (09:26)
[2025-03-03 11:16] LABS: Glucose - Point of Care 331 mg/dl (70-99)
--- NOTE | 2025-03-03 11:21 | PTCARENOTE ---
CT completed and IR called will put in pleuravac this afternoon.
--- NOTE | 2025-03-03 12:18 | CM ---
priced janusz with pts [facility]- his copay is $47/month
[2025-03-03] MEDS: NOVOLOG FLEXPEN-MODERATE RESISTANCE 7 UNITS SC (12:26)
--- NOTE | 2025-03-03 15:21 | PTCARENOTE ---
to IR via stretcher.
--- NOTE | 2025-03-03 16:07 | CM ---
spoke to pt and in room, [facility]- [facility]x and his sacral decub, referral faxed. dcalled [facility], will send new script and picc infor in am. dc date still undetermined.
--- NOTE | 2025-03-03 16:32 | W.PN.PUL3 ---
Today's Communication / Plan
-
For intrapleural catheter placement
Continue antibiotics through 03/30/2025
Physical therapy as tolerated
Nutrition support
Hopefully discharge soon
Sign off
Assessment
-
75-year-old non-smoking male with a history of hypertension, hyperlipidemia, GERD, diabetes, CAD/aortic stenosis, PAT had redo CABG August 2024 and recent robotic assisted right decortication and pleurodesis by Dr. Alejandre on 02/04/2025 for entrapped
right lower lobe lung with recurrent pleural effusions and respiratory failure, recently discharged 02/21/25 for complex fluid. He presents again with increasing shortness of breath, chest congestion, cough wtih productive mucus that is greenish at
times bloody. CT showing similar findings to last admission. We are consulted for readmission for complex R pleural fluid.
Acute on chronic recurrent right pleural effusion s/p chest tube 02/26/25
Readmission 02/26, discharged 02/21/25
Worsening chest congestion, cough w/ productive sputum
Leukocytosis
Kmwvfw-bilargyedh-zbcsupnjoo 9.8-stable
Hyperglycemia
Conditions present prior to admission:
Recurrent right pleural effusion s/p thora 12/03/24, 12/18/24
status post RATS decortication of right lower lobe and right middle lobes, decortication of chest wall due to thick pleura rind, pleurodesis 02/04/2025
discharged home on 02/11/25 w/ right pleural chest tube to Heimlich valve and leg bag gravity drainage
Readm 02/15/25-02/21/25: s/p lysis attempt 02/16/25; s/p insertion of chest tube 'B' large bore/anterior R chest placement 02/17/[address] 'A' was dcd 02/19; R pleur CT 'B' dcd on 02/20
Pleural fluid cx with Klebsiella oxytoca -ID switched on 02/19 from Zosyn to Ceftriaxone 2g IV q24h x 6 weeks through 03/30/25/picc line placed 02/20
CAD/aortic stenosis/Mechanical AVR /CABG 2008-chronic anticoagulation (Coumadin)
s/p PCI 2024 complicated by spiral dissection of the DE LOS SANTOS subsequent redo CABG 08/2024
BPH.
PAT.
Diabetes/neuropathy.
GERD.
Hypertension.
Hyperlipidemia.
Plan
Remains on room air-no change in pulmonary status.
He notes ongoing complaints of chest congestion, productive cough
Recent discharged 02/21 following attempts at chest tube drainage
s/p IR guided chest tube placement 02/26, fluid studies pH 6.8 and glucose and Glucose < 30, consistent with Empyema
Start intra-pleural tPA/DNAse, received 02/27.
last 12 hrs, 225 ml sanguinous drainage from chest tube.
Tidaling noted today, suspect he may have entrapped lung
Output: 400, 1395, 690-- s/p lytic therapy 03/01
No additional lytic necessary.
If CT Chest 03/03-pneumothorax exvacuo. Pleural thickening. Trapped lung physiology. No additional f significant fluid collections
Patient to get intrapleural catheter placement today 03/03/2025.
Will be followed by CT surgery in the outpatient setting.
Placed on IV abx-ceftriaxone for continued treatment-through 03/30/2025 per prior infectious disease evaluation.
Micro reviewed--
+ Klebsiella oxy on prior pleural culture from 02/17/25
+ E coli sputum 08/23/24
Speech eval on prior admission noted 08/18/24-Patient with elevated risk factors for dysphagia (i.e., s/p CABG with HAILEY, sternotomy; VDRF 08/13-08/17) and chronic dysphagia (i.e., VFSS 12/10/2020 WFL oral/pharyngeal, esophageal stasis). Vocal quality
WFL-mild s/p extubation. WFL-mild oral stage differences.
Ongoing speech issues, micro data suggesting aspiration is an issue or contributing cause
Repeat speech eval again
Repeat imaging following chest tube placement
DVT prophylaxis-on Coumadin
Nutrition
Physical therapy-patient very deconditioned. May need placement prior to discharge.
Difficult situation with recurrent readmissions
Dr. Antoine updated at the bedside 03/03/2025.
No additional pulmonary recommendations.
Hopefully discharge planning soon.
Diagnostic data:
Chest x-ray 02/15/2025-progressive accumulation of right pleural fluid, no pneumothorax
Chest x-ray 02/16/2025-right chest tube present with moderate right pleural effusion
CT chest 02/15/2025-complex moderate right pleural effusion, numerous foci of gas are seen throughout the fluid likely multiloculated, mild mediastinal adenopathy
CT Chest 02/26/25- Progressive moderate to large complex loculated hydropneumothorax on the right, as described. Some of the fluid appears slightly increased in attenuation, which could reflect an element of hemorrhage. Intraluminal opacity is
demonstrated in the right upper and lower lobe bronchus, consistent with mucous plugging. Progressive airspace opacity throughout the right hemithorax. Likely progressive atelectasis. There are some areas of patchy consolidation in the mid to lower
lung zone. The possibility of superimposed pneumonia cannot be excluded. Suggested mild volume loss with slight shift of the mediastinal structures to the left compared to the prior examination. A small left pleural effusion has developed. No
significant change in mediastinal adenopathy.
CT neck 05/03/21--severe degenerative/arthritic changes noted on the left side where the collar bone and chest bone or sternum meet -Sternoclavicular-which could explain the lump that he feels,, some carotid artery closure was noted and warrants
carotid ultrasounds, incidentally, his epiglottis also had a lot of calcifications which sometimes can be seen with people that have swallowing difficulties-Patient notified-we'll discuss carotid ultrasounds at next visit.�������
CT head angiogram 07/31/2023-no CT evidence for intracranial aneurysm
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
Brain MRA 06/28/21-no hemodynamically significant stenosis, branch occlusion or aneurysm�������
Neck MRA 06/28/21-no significant carotid plaque formation or hemodynamically significant stenosis
Echocardiogram 12/25/19-EF 65-70%�������
Echocardiogram 04/18/2024-EF 45-50%
ECHO 11/18/24- Mildly reduced left ventricular systolic function. Left ventricular ejection fraction is 45%. Mild mitral stenosis. Mild/moderate mitral regurgitation. Normal functioning mechanical prosthetic aortic valve replacement. Peak/mean
gradients are 7/3 mmHg. No aortic regurgitation is seen. Compared to 04/18/24: LVEF is similar (prior 45-50%). MR has progressed from mild to mild/moderate.
Nuclear stress test 05/17/21-Systolic function moderately reduced, EF 41%, moderate risk study.
Cardiac catheterization 08/13/2024-successful PCI mid LAD distal stent edge haziness and 80% ISR lesion with reduction in stenosis, successful PCI 90% DE [place] SANTOS/LAD with reduction of stenosis to 0% with subsequent complication by dissection of DE LOS SANTOS graft
after post dilation
PSG around 2006 AHI-36, desaturation stefano 85%, CPAP 7-cm�������
HST-after 80 pound weight loss-05/23/21-ROSE-1.4, desaturation stefano 89%.
-----
Subjective Data
-
Date of Service:
Date of Service: March 03, 2025
Chief Complaint: Pulmonary Follow Up
Subjective:
Patient feels debilitated
Continues to have some chest discomfort
Denies phlegm production
Review of Systems
Cardiopulmonary: Dyspnea and Dyspnea on Exertion
Objective Data
Data Reviewed
Vital Signs / I&O / Oxygen:
Vital Signs
Temp Pulse Resp BP Pulse Ox
97.9 F 57 19 133/74 97
03/03/25 15:30 03/03/25 15:30 03/03/25 15:30 03/03/25 15:30 03/03/25 15:30
Intake and Output
03/02/25 03/03/25 03/04/25
06:59 06:59 06:59
Intake Total 720 / 720 820 / 820
Output Total 3330 / 3330 3633 / 3633 1125 / 1125
Balance -2610 / -2610 -2813 / -2813 -1125 / -1125
SaO2 97
Nasal Cannula flow liters per 2
minute
Physical Exam
General: Comfortable and Good Appetite
HEENT: Normocephalic, Anicteric and Moist Mucous Membranes
Cardiovascular: S1-S2 and Regular Rhythm
Respiratory: Clear, Non-Labored Respirations and Chest Tube
GI: Soft and Non Distended
Neurology: Awake, Alert, Oriented and No Motor Deficits
Skin: Warm, Dry and Good Color
Labs/Micro/Reports
Lab Data
03/03/25 04:35
03/03/25 04:35
Laboratory Results
03/03/25
04:34
PT 25.1 H
INR 2.27
Microbiology
02/26/25 16:11 Pleural Fluid Fungal Smear - Final
No yeast or fungal elements seen.
02/26/25 16:11 Pleural Fluid Fungal Culture - Preliminary
Culture in progress.
Positive cultures are reported as soon as detected.
Final report to follow in four to five weeks.
02/26/25 16:11 Pleural Fluid Body Fluid Culture - Final
Klebsiella oxytoca
02/26/25 16:11 Pleural Fluid Gram Stain - Final
02/26/25 16:11 Pleural Fluid Acid Fast Bacilli Smear - Preliminary
02/26/25 16:11 Pleural Fluid Acid Fast Bacilli Culture - Preliminary
--- NOTE | 2025-03-03 16:54 | PN.IRAD.UPD ---
Update Note - IRAD
- -
Right Asept placed in IRAD, no fluid to currently drain post placement. A box of supplies (5 boxes will be sent up with the patient today, IR staff will come bedside to perform drainage/teaching with family when they are present tomorrow.
[2025-03-03] MEDS: ROCEPHIN 2000 MG IV (17:36)
[2025-03-03] MEDS: STERILE WATER FOR INJECTION 20 ML IV (17:37)
[2025-03-03] MEDS: ZETIA 10 MG PO (17:41)
[2025-03-03] MEDS: COUMADIN 1 MG PO (17:41)
[2025-03-03] MEDS: LIPITOR 40 MG PO (17:41)
[2025-03-03] MEDS: VITAMIN D3 (cholecalciferol) 25 MCG PO (17:41)
[2025-03-03] MEDS: FLUSH (NSS) 2 FLUSH IV (17:44)
[2025-03-03 18:07] LABS: Glucose - Point of Care 137 mg/dl (70-99)
--- NOTE | 2025-03-03 18:26 | PTCARENOTE ---
patient returned from IR, awake, talking, right CT removed and Asept inserted in IR, dsg. D/I. no pain.
[2025-03-03] MEDS: REMOVE LIDOCAINE PATCH REMOVE (20:01)
[2025-03-03 22:37] LABS: Glucose - Point of Care 164 mg/dl (70-99)
[2025-03-03] MEDS: DESYREL 75 MG PO (22:38)
[2025-03-03] MEDS: ROXICODONE 5 MG PO (22:38)
[2025-03-03] MEDS: LANTUS 0.21 UNITS SC (22:38)
[2025-03-04] VITALS (11 sets, daily range): BP systolic 114–148; BP diastolic 59–82; PULSE 57–62; O2SAT 96–98; BMI 25.2
--- NOTE | 2025-03-04 03:11 | PTCARENOTE ---
Tele monitor shows SB-NSR w/ 1st AV block. HR in the 50-60's at rest. Pt c/o pain at the old chest tube site. PRN Roxicodone administered--see MAR for further details. Right side dressing intact, no drainage noted at this time. Patient sating
97-98% RA, pt has an occasional dry cough. Call xiao within reach, fall risk precautions maintained.
[2025-03-04 04:10] LABS: INR 2.21; PT 24.6 Sec (11.4-14.6)
--- NOTE | 2025-03-04 04:13 | W.PN.CT ---
Today's Communication / Plan
-
Plan:
-No major issues overnight
-Underwent successful placement of a right pleural tunneled Pleurex catheter yesterday 03/03
-CXR this AM has improved on my assessment, F/U official report
-Chest CT from yesterday 03/03 showed: Tiny, decreased right pleural effusion and accompanying decreased right basilar opacification/consolidation. Persistent right pneumothorax versus trapped lung
-Has PICC line and on Rocephin for Klebsiella oxytoca from pleural fluid 02/17/25
-Wound care following sacral decubitus ulcer
-On Coumadin for mechanical AVR, received 2.5 on 02/26 and 2.5 on 02/27, held 02/28 and 03/01, got 1mg Coumadin on 03/02 and 03/03; INR 2.07-> 2.92-> 3.13-> 2.31-> 2.27-> 2.21 today
-OOB into chair/Ambulate
-D/C with Pleurx catheter
-Deconditioned, PT/OT to evaluate for home vs acute rehab placement
Assessment / Plan
-
75 year old male redo CABG August 2024 and recent robotic assisted right decortication and pleurodesis by Dr. Alejandre on 02/04/2025 for entrapped right lower lobe lung with recurrent pleural effusions and respiratory failure with recurrent right
pleural effusion and Klebsiella oxytoca empyema
# Large complex loculated hydropneumothorax on the right
# Acute respiratory insufficiency on LFNC
# SOB
- s/p IR guided [address] on R, 300 cc out in IR
- continue Ceftriaxone 2G IV daily (end date 03/30) via RUE PICC
- consult pulmonary, considering lytics
- Amio for AF prophylaxis s/p lung surgery
- IS, OOB, PT
# s/p Mechanical AVR (On-X) 2008
- continue Warfarin 5mg daily
- follow INR
# CAD s/p CABG (2024)
- continue Lipitor, Toprol, Plavix, CoQ10, Zetia, Bumex
# T2DM w/neuropathy
- continue diabetic diet
- continue Januvia, Glargine, Farxiga, gabapentin
- POC glucose AC + HS w/SSI
# BPH
- continue Flomax
# Chronic sacral wound present on admission
- consult wound
- offload pressure
Discussed patient care with: Cardiology, Nursing, Respiratory Therapy, Pharmacy and Care Team
Subjective
-
Date of Service: March 04, 2025
Pt with mild chest tube insertion site discomfort, otherwise feels well
Objective Data
-
Lab Results
03/03/25 04:35
03/03/25 04:35
PT 25.1 Sec (11.4-14.6) H 03/03/25 04:34
INR 2.27 03/03/25 04:34
APTT 44.7 Sec (23.4-35.0) H 02/27/25 04:28
Vital Signs
Vital Signs
Temp Pulse Resp BP Pulse Ox
98.3 F 63 18 125/72 94
03/04/25 03:40 03/04/25 03:32 03/04/25 03:40 03/04/25 03:32 03/04/25 03:40
CT Intake/Output/Weight
03/03/25 03/03/25 03/04/25
06:59 18:59 06:59
Intake Total 340 / 460 120 / 460
Output Total 1383 / 3633 1525 / 2125 600 / 2125
Balance -1383 / -2813 -1185 / -1665 -480 / -1665
SaO2: 94 (RA)
Physical Exam
-
General: Awake, Oriented and AOx3
Cardiovascular: Regular rate & rhythm
Respiratory: Decreased Breath Sounds (on right, otherwise clear)
Sternum: Stable
Incision: Clean, Dry, Intact and Dressing Intact
Extremities: Other (+trace edema)
Data Reviewed
-
Lab Results: Results Reviewed
Medications: Active Meds Reviewed
Chest X-Ray: Report Reviewed and Image Reviewed
ECG: Report Reviewed and Image Reviewed
--- NOTE | 2025-03-04 04:47 | PTCARENOTE ---
Pt rang call xiao and reports 'All the sudden I just feel SOB'. Pt currently laying in bed. Pulse ox 94% RA. He states he attempted 'deep breathing' exercises and was unsuccessful and had no relief. This RN applied 2L for comfort. Pulse ox sating
currently sating 99% on 2L O2. Pt w/ good relief. Call xiao within reach.
[2025-03-04 08:00] LABS: Glucose - Point of Care 163 mg/dl (70-99)
[2025-03-04] MEDS: NOVOLOG FLEXPEN-MODERATE RESISTANCE 1 UNITS SC ×2 (09:11→18:10)
[2025-03-04] MEDS: TOPROL XL 25 MG PO (09:13)
[2025-03-04] MEDS: FARXIGA 10 MG PO (09:13)
[2025-03-04] MEDS: PACERONE 200 MG PO (09:13)
[2025-03-04] MEDS: NEURONTIN 100 MG PO ×3 (09:13→22:09)
[2025-03-04] MEDS: PLAVIX 75 MG PO (09:13)
[2025-03-04] MEDS: THERAGRAN 1 TABLET PO (09:13)
[2025-03-04] MEDS: FLOMAX 0.4 MG PO (09:13)
[2025-03-04] MEDS: JANUVIA 100 MG PO (09:14)
[2025-03-04] MEDS: MUCINEX 1200 MG PO ×2 (09:14→19:42)
[2025-03-04] MEDS: LIDOCAINE 4% PATCH TOPICAL (09:14)
[2025-03-04] MEDS: COLACE 100 MG PO ×2 (09:15→19:42)
[2025-03-04] MEDS: BUMEX 2 MG PO (09:19)
[2025-03-04 12:33] LABS: Glucose - Point of Care 225 mg/dl (70-99)
[2025-03-04] MEDS: NOVOLOG FLEXPEN-MODERATE RESISTANCE 3 UNITS SC (12:50)
--- NOTE | 2025-03-04 13:25 | PN.IRAD.UPD ---
Update Note - IRAD
- -
Asept teaching done with bedside. Catheter drained less than 50 ml's of blood tinged fluid and a large amount of air. 4 bottles left with the patient's along with an educational folder and discharge information to order the bottles.
--- NOTE | 2025-03-04 15:09 | CM ---
spoke with pt and , they are concerned pt is very deconditioned, PT/OT recomm acute rehab. [facility] has no beds until next wk. pt/ asked for [facility]- referral faxed, await bed avail and will need PMR and auth.
[2025-03-04] MEDS: ROCEPHIN 2000 MG IV (15:40)
[2025-03-04] MEDS: STERILE WATER FOR INJECTION 20 ML IV (15:41)
[2025-03-04 16:41] LABS: Glucose - Point of Care 160 mg/dl (70-99)
[2025-03-04] MEDS: VITAMIN D3 (cholecalciferol) 25 MCG PO (18:09)
[2025-03-04] MEDS: LIPITOR 40 MG PO (18:09)
[2025-03-04] MEDS: ZETIA 10 MG PO (18:09)
--- NOTE | 2025-03-04 19:19 | PTCARENOTE ---
Pt reported 'feeling SOB' 20 minutes after walking with PT in the halls for the first time. Resp rate 24, O2 sat's 98%, breath sounds unchanged , decreased on right. Pt appears anxious and states this 'breathing panic' has happened to him before. Pt
encouraged to try and distract himself with other thoughts which he stated was successful. Malika Wall, [employer] aware. Pleurx drainage 50mls today, teaching to pt and his done by KAYLEE PLASENCIA. Pt encouraged to move himself from side to side to
allow sacral decubitus to heal. Telemetry shows sinus maribel with first degree AV block.
[2025-03-04] MEDS: COUMADIN 1 MG PO (19:41)
[2025-03-04] MEDS: REMOVE LIDOCAINE PATCH REMOVE (19:42)
[2025-03-04 21:51] LABS: Glucose - Point of Care 199 mg/dl (70-99)
[2025-03-04] MEDS: DESYREL 75 MG PO (22:07)
[2025-03-04] MEDS: LANTUS 0.21 UNITS SC (22:08)
--- NOTE | 2025-03-04 22:35 | PTCARENOTE ---
Received patient at change of shift. SB with a first degree on the monitor, HR in the 50s. Encouraged pt to turn from side to side for sacral wound healing. Right side dressing intact, no drainage noted at this time. No complaints from pt at this
time, call xiao within reach.
[2025-03-05] VITALS (8 sets, daily range): BP systolic 116–134; BP diastolic 61–75; O2SAT 100; BMI 25.1
[2025-03-05] MEDS: ROXICODONE 5 MG PO (01:39)
--- NOTE | 2025-03-05 02:35 | PTCARENOTE ---
Pt complains of 5/10 pain at R ribs, Pleurx cath site. PRN pain medications administered as per order, see AUG. CT surgery PA aware. Pt reassessed and is now sleeping.
[2025-03-05 04:53] LABS: INR 1.77; PT 21.1 Sec (11.4-14.6)
--- NOTE | 2025-03-05 05:04 | W.PN.CT ---
Today's Communication / Plan
-
Plan:
-No major issues overnight
-Underwent successful placement of a right pleural tunneled Pleurx catheter by IR on 03/03
-follow daily CXR
-Chest CT on 03/03 showed: Tiny, decreased right pleural effusion and accompanying decreased right basilar opacification/consolidation. Persistent right pneumothorax versus trapped lung
-Has PICC line, on Rocephin until 03/30/25 for Klebsiella oxytoca from pleural fluid 02/17 and 02/26
-Wound care following sacral decubitus ulcer
-On Coumadin for mechanical AVR, received 2.5 on 02/26 and 2.5 on 02/27, held 02/28 and 03/01, got 1mg Coumadin on 03/02, 03/03, and 03/04; INR today 1.77
-OOB into chair/Ambulate
-D/C with Pleurx catheter
-Deconditioned, PT/OT to evaluate for acute rehab placement. Physiatry evaluation
-Psych eval for possible depression
Assessment / Plan
-
75 year old male redo CABG August 2024 and recent robotic assisted right decortication and pleurodesis by Dr. Alejandre on 02/04/2025 for entrapped right lower lobe lung with recurrent pleural effusions, respiratory failure, and Klebsiella oxytoca empyema
#Klebsiella oxytoca empyema- continue Ceftriaxone 2G IV daily (end date 03/30) via RUE PICC
# Large complex loculated hydropneumothorax on the right
# Acute respiratory insufficiency on LFNC
# SOB
- s/p IR guided [address] on R, 300 cc out in IR--> s/p Successful placement of a right pleural tunneled Asept catheter by IR on 03/03/25
- pulmonary followed, signed off 03/03
- Amio for AF prophylaxis s/p lung surgery
- IS, OOB, PT
# s/p Mechanical AVR (On-X) 2008
- continue Warfarin 5mg daily
- follow INR
# CAD s/p CABG (2024)
- continue Lipitor, Toprol, Plavix, CoQ10, Zetia, Bumex
# T2DM w/neuropathy
- continue diabetic diet
- continue Januvia, Glargine, Farxiga, gabapentin
- POC glucose AC + HS w/SSI
# BPH
- continue Flomax
# Chronic sacral wound present on admission
- consult wound
- offload pressure
Discussed patient care with: Nursing and Care Team
Subjective
-
Date of Service: March 05, 2025
Objective Data
-
Lab Results
03/03/25 04:35
03/03/25 04:35
PT 21.1 Sec (11.4-14.6) H 03/05/25 03:39
INR 1.77 03/05/25 03:39
APTT 44.7 Sec (23.4-35.0) H 02/27/25 04:28
Vital Signs
Vital Signs
Temp Pulse Resp BP Pulse Ox
97.7 F 56 18 120/67 95
03/05/25 03:30 03/05/25 04:00 03/05/25 03:30 03/05/25 03:30 03/05/25 03:30
CT Intake/Output/Weight
03/04/25 03/04/25 03/05/25
06:59 18:59 06:59
Intake Total 120 / 460 680 / 920 240 / 920
Output Total 600 / 2125 1325 / 1925 600 / 1925
Balance -480 / -1665 -645 / -1005 -360 / -1005
SaO2: 95
Physical Exam
-
General: Awake, Oriented and AOx3
Cardiovascular: Regular rate & rhythm
Respiratory: Decreased Breath Sounds (on right, otherwise clear)
Sternum: Stable
Incision: Clean, Dry, Intact and Dressing Intact
Extremities: Other (+trace edema)
Data Reviewed
-
Lab Results: Results Reviewed
Medications: Active Meds Reviewed
Chest X-Ray: Report Reviewed and Image Reviewed
ECG: Report Reviewed and Image Reviewed
[2025-03-05 07:29] LABS: Glucose - Point of Care 132 mg/dl (70-99)
[2025-03-05] MEDS: NOVOLOG FLEXPEN-MODERATE RESISTANCE SC (09:02)
[2025-03-05] MEDS: LIDOCAINE 4% PATCH 1 PATCH TOPICAL (09:03)
[2025-03-05] MEDS: MUCINEX 1200 MG PO ×2 (09:03→21:04)
[2025-03-05] MEDS: JANUVIA 100 MG PO (09:04)
[2025-03-05] MEDS: TOPROL XL 25 MG PO (09:04)
[2025-03-05] MEDS: FARXIGA 10 MG PO (09:04)
[2025-03-05] MEDS: PACERONE 200 MG PO (09:04)
[2025-03-05] MEDS: BUMEX 2 MG PO (09:04)
--- NOTE | 2025-03-05 09:04 | CON.MR ---
Documented by User: Mt Cho MD, Resident 03/06/25 10:41
Consultation
Consultation Request
Date/Time Consultation Requested: 03/04/25
Date/Time Consultation Performed: 03/05/25
Requesting Provider: Malika Wall
Performing Provider: Dr. Rehman
Reason for Consultation: Acute rehab eval
Medical History
-
Chief Complaint: Shortness of breath
History of Present Illness:
Mr. Benavidez is a 75-year-old male w with a significant past cardiac surgery, [place] mechanical AVR /CABG 2008-chronic anticoagulation (Coumadin); PCI 2024 complicated by spiral dissection of the [place] SANTOS subsequent redo CABG 08/2024, and right robotic
assisted RML/RLL with chest wall decortication and pleurodesis on with Dr. Alejandre. Patient also has a past history of stage IV sacral wound, recurrent pleural effusions, BPH, PAT, diabetes/neuropathy, GERD, hypertension, HLD. Patient was
discharged home on 02/11 with Heimlich valve and readmitted for empyema. Patient required an IR chest tube in addition to his surgical Heimlich. Pleural fluid grew Klebsiella oxytoca and ceftriaxone 2 g IV daily x 6 weeks via PICC line
initiated with end date of 03/30/2025. Chest tubes were removed prior to discharge. Patient presented to [facility] ER today with increased frequency of shortness of breath, chest congestion, cough wtih productive mucus that is greenish at times bloody.
In the ED CT chest showed and patient was admitted for progressive moderate to large complex loculated hydropneumothorax on the right. IR was consulted and they placed a right chest tube for the complex pleural effusion, chest tube yielded 300 mL
of serosanguineous fluid. Fluid studies were consistent with empyema, patient was started on intra pleural lytics and antibiotics were continued. On 03/03 patient received tunneled pleural Asept catheter. 03/[address] showed tiny right pleural
effusion and accompanying decreased right basilar consolidation.
Past Medical History
Past Medical History: CAD (S/p CABG), GERD, HTN, Hypercholesterolemia, NIDDM and Other (Stage IV sacral ulcer, PAT, BPH, recurrent right pleural effusion)
Past Surgical History: Cardiac (CABG 2008-chronic anticoagulation (Coumadin) s/p PCI 2024 complicated by spiral dissection of the [place] subsequent redo CABG 08/2024)
Procedure History:
status post RATS decortication of right lower lobe and right middle lobes, decortication of chest wall due to thick pleura rind, pleurodesis 02/04/2025
discharged home on 02/11/25 w/ right pleural chest tube to Heimlich valve and leg bag gravity drainage
Readm 02/15/25-02/21/25: s/p lysis attempt 02/16/25; s/p insertion of chest tube 'B' large bore/anterior R chest placement 02/17/[address] 'A' was dcd 02/19; R pleur CT 'B' dcd on 02/20
Social History
Functional Level Premorbidity:
Independent for all activities.
Ambulation with rolling walker prior to hospitalization no AD
Current Funct Level: Ambulation, Transfer, UE/LE Dressing:
Transfer: Supervision
Ambulation: 35 feet x 2 with RW min A
ADL: Grooming supervision, toileting supervision, lower extremity self-care set up
Tobacco: Non-Smoker
Alcohol: None
Drug: None
Personal:
Living: With Family
Number of Floors: 2
# Steps to Enter: 2
# Steps to Second Floor: 13
Potential First Floor Set Up: No
Employment: Retired
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
Allergies / Home Medications
Allergy/AdvReac Type Severity Reaction Status Date / Time
levofloxacin (From Levaquin) Allergy muscle pain Verified 02/26/25 16:15
rosuvastatin calcium (From Allergy leg pain Verified 02/26/25 16:15
Crestor)
simvastatin (From Zocor) Allergy MYALGIAS/leg Verified 02/26/25 16:15
cramping
�Medication �Instructions �Recorded �Confirmed �Last Taken �Type
cholecalciferol (vitamin D3) 25 1,000 units PO QPM Supplement 08/26/18 02/26/25 02/25/25 History
mcg (1,000 unit) tablet
amiodarone 200 mg tablet 200 mg PO DAILY Arrhythmia 30 days 09/15/24 02/26/25 02/25/25 Rx
#30 tabs
bumetanide 2 mg tablet 2 mg PO DAILY Fluid 09/15/24 02/26/25 02/25/25 Rx
retention/Swelling 30 days #30 tabs
clopidogrel 75 mg tablet 75 mg PO DAILY Blood clot 09/15/24 02/26/25 02/25/25 Rx
prevention/tx/Afib #30 tabs
dapagliflozin propanediol 10 mg 10 mg PO DAILY Heart 09/15/24 02/26/25 02/25/25 Rx
tablet disease/condition 30 days #30 tabs
docusate sodium 100 mg capsule 100 mg PO BID Constipation 30 days 09/15/24 02/26/25 02/25/25 Rx
#60 caps
ezetimibe 10 mg tablet (Zetia) 10 mg PO QPM High cholesterol 30 09/15/24 02/26/25 02/25/25 Rx
days #30 tabs
gabapentin 100 mg capsule 100 mg PO TID Pain 30 days #90 caps 09/15/24 02/26/25 02/25/25 Rx
sitagliptin phosphate 100 mg 100 mg PO DAILY Diabetes 30 days 09/15/24 02/26/25 02/25/25 Rx
tablet (Januvia) #30 tabs
tamsulosin 0.4 mg capsule 0.4 mg PO DAILY Bladder/BPH 30 09/15/24 02/26/25 02/25/25 Rx
days #30 caps
acetaminophen 500 mg tablet 1,000 mg PO DAILYPRN PRN mild pain 11/16/24 02/26/25 02/25/25 History
insulin aspart U-100 100 unit/mL 1 sliding scale dose SC AC Diabetes 0502/26/25 02/25/25 History
(3 mL) subcutaneous pen
insulin glargine 100 unit/mL (3 21 unit SC QHS Diabetes 11/16/24 02/26/25 02/25/25 History
mL) subcutaneous pen (Lantus
Solostar U-100 Insulin)
metoprolol succinate 25 mg 25 mg PO DAILY blood pressure 11/16/24 02/26/25 02/25/25 History
tablet,extended release 24 hr
trazodone 50 mg tablet 75 mg PO HS insomnia 11/16/24 02/26/25 02/25/25 History
atorvastatin 80 mg tablet 40 mg PO QPM High Cholesterol 01/21/25 02/26/25 02/25/25 History
therapeutic multivitamin 1 tab PO DAILY Supplement 02/15/25 02/26/25 02/25/25 History
warfarin 5 mg tablet 5 mg PO QPM Blood Clot 02/15/25 02/26/25 02/25/25 History
Prevention/Tx
ceftriaxone 2 gram solution for 2,000 mg IV DAILY@1200 Infection 02/26/25 02/26/25 02/25/25 History
injection
coQ10 (ubiquinol) 100 mg capsule 100 mg PO QPM Supplement 02/26/25 02/26/25 02/25/25 History
guaifenesin 600 mg tablet, 600 mg PO BIDPRN PRN COUGH 02/26/25 02/26/25 02/25/25 History
extended release 12 hr (Mucinex)
oxycodone 5 mg tablet 5 mg PO TIDPRN PRN mild pain 02/26/25 02/26/25 02/25/25 History
Review Of Systems
-
History Source: Patient
Constitutional: Reports No Symptoms; Denies Fever or Chills
Eye: Reports No Symptoms; Denies Blurry Vision, Tearing or Visual Field Cut
EENT: Reports No Symptoms; Denies Sore Throat or Runny Nose
Respiratory: Reports No Symptoms; Denies Cough or Trouble Breathing
Cardiac: Reports No Symptoms; Denies Chest Pain or Palpitations
Abdomen/GI: Reports No Symptoms; Denies Abdominal Pain, Nausea, Vomiting, Diarrhea or Constipated
: Reports No Symptoms; Denies Dysuria or Frequency
Musculoskeletal: Reports No Symptoms
Integumentary: Reports No Symptoms
Neurological: Reports Numbness (Lower extremities ); Denies Dizzy or Headache
Physical Exam
Active Medications
Generic Name Dose Route Start Last Admin
Trade Name Freq PRN Reason Stop Dose Admin
Acetaminophen 1,000 mg 02/26/25 13:13 03/01/25 01:27
Acetaminophen 500 Mg Tablet PO 03/26/25 13:12 1,000 mg
DAILYPRN PRN Administration
mild pain
Al Hydrox/Mg Hydrox/Simethicone 30 ml 02/26/25 12:47
Mag/Al/Simethicone Suspension 30 Ml Cup PO 03/26/25 12:46
Q6HPRN PRN
Heartburn
Albuterol Sulfate 1.25 mg 03/02/25 13:03
Albuterol Nebs 1.25 Mg/3 Ml Ampul INH
R Q4HPRN PRN
SOB/wheezing
Protocol
Amiodarone HCl 200 mg 02/27/25 08:00 03/04/25 09:13
Amiodarone 200 Mg Tablet PO 03/27/25 07:59 200 mg
DAILY ROBERTH Administration
Atorvastatin Calcium 40 mg 02/26/25 18:00 03/04/25 18:09
Atorvastatin (Lipitor) 40 Mg Tablet PO 03/26/25 17:59 40 mg
QPM ROBERTH Administration
Bisacodyl 10 mg 02/26/25 12:47
Bisacodyl 10 Mg Rectal Suppository RECTAL 03/26/25 12:46
[id number] PRN
constipation
Bumetanide 2 mg 02/27/25 08:00 03/04/25 09:19
Bumetanide 1 Mg Tablet PO 03/27/25 07:59 2 mg
DAILY ROBERTH Administration
Ceftriaxone Sodium 2,000 mg 02/27/25 16:00 03/04/25 15:40
Ceftriaxone 2,000 Mg/20 Ml Vial IV 03/30/25 17:05 2,000 mg
DAILY@1600 ROBERTH Administration
Cholecalciferol 25 mcg 02/26/25 18:00 03/04/25 18:09
Cholecalciferol (Vitamin D3) 25 Mcg Tablet (1,000 Units) PO 03/26/25 17:59 25 mcg
QPM ROBERTH Administration
Clopidogrel Bisulfate 75 mg 02/27/25 08:00 03/04/25 09:13
Clopidogrel 75 Mg Tablet PO 03/27/25 07:59 75 mg
DAILY ROBERTH Administration
Dapagliflozin 10 mg 02/27/25 08:00 03/04/25 09:13
Dapagliflozin (Farxiga) 10 Mg Tablet PO 03/27/25 07:59 10 mg
DAILY ROBERTH Administration
Dextrose 12.5 grams 02/26/25 13:23
Dextrose 50% (0.5 Grams/Ml) 50 Ml Syringe IV 03/26/25 13:22
[id number] PRN
hypoglycemia
Protocol
Docusate Sodium 100 mg 02/26/25 20:00 03/04/25 19:42
Docusate Sodium 100 Mg Capsule PO 03/26/25 19:59 100 mg
BID ROBERTH Administration
Ezetimibe 10 mg 02/26/25 18:00 03/04/25 18:09
Ezetimibe (Zetia) 10 Mg Tablet PO 03/26/25 17:59 10 mg
QPM ROBERTH Administration
Gabapentin 100 mg 02/26/25 16:00 03/04/25 22:09
Gabapentin 100 Mg Capsule PO 03/26/25 15:59 100 mg
TID ROBERTH Administration
Glucagon 1 mg 02/26/25 13:23
Glucagon 1 Mg Vial IM 03/26/25 13:22
PRN PRN
hypoglycemia
Protocol
Guaifenesin 600 mg 02/26/25 13:13
Guaifenesin 600 Mg Extended Release Tablet PO 03/26/25 13:12
On Hold: 02/26/25 16:38 BIDPRN PRN
COUGH
Guaifenesin 1,200 mg 02/27/25 08:00 03/04/25 19:42
Guaifenesin 600 Mg Extended Release Tablet PO 03/27/25 07:59 1,200 mg
Q12 ROBERTH Administration
Insulin Glargine 21 units/ 0.21 mls @ 0 mls/hr 02/26/25 22:00 03/04/25 22:08
Device SC 03/26/25 21:59 0.21 mls
HS ROBERTH Administration
As Directed
Insulin Aspart 0 units 02/26/25 16:30 03/04/25 18:10
Insulin Aspart Moderate Resistance 300 Units/3 Ml Pen.Injctr SC 03/26/25 16:29 1 units
AC ROBERTH Administration
Protocol
Lidocaine 1 patch 03/01/25 13:00 03/04/25 09:14
Lidocaine 4% Topical Patch TOPICAL 03/29/25 12:59 Not Given
DAILY ROBERTH
Protocol
Metoprolol Succinate 25 mg 02/27/25 08:00 03/04/25 09:13
Metoprolol 25 Mg Extended Release Tablet PO 03/27/25 07:59 25 mg
DAILY ROBERTH Administration
Multivitamins Therapeutic 1 tablet 02/27/25 08:00 03/04/25 09:13
Multivitamin Tablet PO 03/27/25 07:59 1 tablet
DAILY ROBERTH Administration
Ondansetron HCl 4 mg 02/26/25 12:47
Ondansetron 4 Mg/2 Ml Vial IV 03/26/25 12:46
Q6HPRN PRN
nausea and vomiting
Oxycodone HCl 5 mg 02/26/25 13:13 03/05/25 01:39
Oxycodone 5 Mg Regular Release Tablet PO 03/12/25 13:12 5 mg
TIDPRN PRN Administration
MODERATE pain
Patch Removal 0 patch 03/01/25 20:00 03/04/25 19:42
Remove Lidocaine Patch REMOVE 03/29/25 19:59 Not Given
DAILY@2000 ROBERTH
Polyethylene Glycol 17 grams 02/26/25 12:47
Polyethylene Glycol Powder 17 Grams Packet PO 03/26/25 12:46
DAILYPRN PRN
constipation
Sitagliptin Phosphate 100 mg 02/27/25 08:00 03/04/25 09:14
Sitagliptin (Januvia) 100 Mg Tablet PO 03/27/25 07:59 100 mg
DAILY ROBERTH Administration
Sodium Chloride 0 flush 02/26/25 17:00 03/03/25 17:44
Sodium Chloride 0.9% (Flush) Syringe IV 03/26/25 16:59 2 flush
PER PROTOCOL ROBERTH Administration
Sterile Water 20 ml 02/27/25 16:00 03/04/25 15:41
Sterile Water For Injection 20 Ml Vial IV 03/27/25 15:59 20 ml
DAILY@1600 ROBERTH Administration
Tamsulosin HCl 0.4 mg 02/27/25 08:00 03/04/25 09:13
Tamsulosin 0.4 Mg Capsule PO 03/27/25 07:59 0.4 mg
DAILY ROBERTH Administration
Trazodone HCl 75 mg 02/26/25 22:00 03/04/25 22:07
Trazodone 50 Mg Tablet PO 03/26/25 21:59 75 mg
HS ROBERTH Administration
Warfarin Sodium 2 mg 03/05/25 18:00
Warfarin 2 Mg Tablet PO 03/05/25 18:01
ONCE@1800 ONE
Vital Signs
Temp Pulse Resp BP Pulse Ox
97.2 F 54 17 117/75 95
03/05/25 07:26 03/05/25 07:30 03/05/25 07:26 03/05/25 07:30 03/05/25 07:26
Height 5 ft 11 in
Actual Weight 81.6 kg
Body Mass Index (BMI) 25.1
Physical Exam
Physical Exam:
General Appearance/Observation: Well-developed, well-nourished individual in no apparent distress.
Pain/Comfort Assessment: Denies
Mood/Affect: Appropriate
Integumentary/Operative Site:
Pressure Ulcer: stage 4 sacral
Other Type of Wound: L heel injury
Eyes: Conjunctiva/Lids: normal Pupils: pupils equal round and reactive to light and Accommodation
Ears/Nose/Throat: oral mucosa moist, throat clear. Lips/Teeth/Gums: normal
Neck: No muscle spasm or tenderness
Cardiovascular: Heart: bradycardic, regular rhythm, no murmur
Pulses: dorsalis pedis 2+ bilaterally
Respiratory: Respiratory Effort/Chest Expansion: normal Auscultation: mildly decreased on R base, L clear to auscultation bilaterally, R chest catheter present
Gastrointestinal: abdomen not tender, no distension, normal abdominal bowel sounds
Genitourinary: No Becerra
Rectal Exam: Deferred
Extremities: Edema: None Cyanosis: None Trophic changes: None
Neurology Exam:
Orientation: Alert, Oriented to self, Time, Place, situation
Memory: Intact immediately and at 3 minutes
Higher cortical function
Speech: Intact
Repetition: Intact
Comprehension: Intact
Two step command: Intact
Naming: Intact
Cranial Nerves:
CNII: Pupillary light reflex: Intact Visual Field: Intact
CN III, IV, : Extraocular muscles: Intact
CN V: Facial Sensation at Forehead: Intact , Maxilla: Intact, Mandible: Intact
CN VII: Facial movement: Symmetric
CN VIII: Hearing: Normal
CN IX/X: Speech & swallow: Normal, Position of Uvula: Midline
CN XI: Shoulder shrug: Symmetric
CN XII: Tongue protrusion: Midline
Sensory:
Light touch: Intact in bilateral upper and decreased below knees in lower extremities
Pinprick: deferred
Proprioception: decreased
Temperature: deferred
Reflexes:
Biceps: 0 bilaterally
Brachioradialis: 0 bilaterally
Triceps: 0 bilaterally
Patellar: 0 bilaterally
Achilles: 0 bilaterally
Babinski: Downgoing bilaterally
Clonus: None
Fernanda: Negative bilaterally
Cerebellar: Dysmetria/Ataxia: None
Musculoskeletal:
Motor: (Manual muscle scale 0-5)
Muscle SA EF WE EE FF FA HF KE DF EHL PF
Right 5 5 5 5 5 5 4 5 5 5 5
Left 5 5 5 5 5 5 4 5 5 5 5
Tone: Normal in all extremities
Range of Motion: Passively within normal limits in all extremities
Lab Results
03/03/25 04:35
03/03/25 04:35
WBC 11.8 10^3/uL (4.8-10.8) H 03/03/25 04:35
Hgb 9.3 g/dL (13.0-18.0) L 03/03/25 04:35
Hct 30.0 % (39.0-52.0) L 03/03/25 04:35
MCV 83.1 fL (80.0-94.0) 03/03/25 04:35
Plt Count 400 10^3/uL (130-400) 03/03/25 04:35
PT 21.1 Sec (11.4-14.6) H 03/05/25 03:39
INR 1.77 03/05/25 03:39
Sodium 136 mmol/L (135-145) 03/03/25 04:35
Potassium 3.8 mmol/L (3.5-5.1) 03/03/25 04:35
Chloride 103 mmol/L (98-107) 03/03/25 04:35
Carbon Dioxide 30 mmol/L (22-30) 03/03/25 04:35
BUN 41 mg/dl (9-20) H 03/03/25 04:35
Creatinine 0.9 mg/dL (0.7-1.3) 03/03/25 04:35
eGFR > 60.00 03/03/25 04:35
Glucose 134 mg/dl (70-99) H 03/03/25 04:35
Calcium 8.5 mg/dl (8.4-10.2) 03/03/25 04:35
Magnesium 2.1 mg/dl (1.6-2.3) 03/03/25 04:35
Total Bilirubin 0.9 mg/dl (0.2-1.3) 02/26/25 09:34
AST 49 U/L (17-59) 02/26/25 09:34
ALT 58 U/L (0-50) H 02/26/25 09:34
Alkaline Phosphatase 334 U/L (38-126) H 02/26/25 09:34
Total Protein 6.8 g/dl (6.3-8.2) 02/26/25 09:34
Albumin 3.0 g/dl (3.5-5.0) L 02/26/25 09:34
Diagnostic Results
As per HPI.
Assessment / Plan
Assessment
Mr. Benavidez is a 75-year-old male w with a significant past cardiac surgery, [place] mechanical AVR /CABG 2008-chronic anticoagulation (Coumadin); and right robotic assisted RML/RLL with chest wall decortication and pleurodesis on with
Pili. Patient also has a past history of stage IV sacral wound, recurrent pleural effusions, BPH, PAT, diabetic neuropathy, GERD, hypertension, HLD. Patient was discharged home on 02/11 with Heimlich valve and readmitted for empyema.
Patient required an IR chest tube in addition to his surgical Heimlich. Pleural fluid grew Klebsiella oxytoca and ceftriaxone 2 g IV daily x 6 weeks via PICC line initiated with end date of 03/30/2025. Chest tubes were removed prior to discharge.
Patient presented to [facility] ER today with increased frequency of shortness of breath, chest congestion, cough wtih productive mucus that is greenish at times bloody. He was admitted for progressive moderate to large complex loculated
hydropneumothorax on the right.
Plan
PM&R PT/OT to increase independence with ADLs, improve balance, coordination, endurance, strength, mobility, community reintegration, decreased burden of care on others and family education.
Peripheral polyneuropathy: Patient with a lower extremity polyneuropathy due to diabetes. Patient at high risk of falling with subsequent significant neuropathy
HTN: continue medications, monitor closely
HLD: Statin
Coronary artery disease : Aspirin, statin, beta-ellie
S/P CABG: Sternal precautions. Aspirin, statin, warfarin, BP control. Monitor incision, pain control.
CHF: EF 45 %, beta ellie, monitor fluid status
DM II: Accu-Cheks, insulin sliding scale, metformin, lispro, lantus.
PAT: possible CPAP use.
Pressure ulcers: Vitamin C, zinc, multivitamin. Weight shifts in wheelchair and bed. Roho cushion. Pressure-relief boots. Lotrimin to fungal rash over buttocks and inguinal region.
Anemia: Likely multifactorial. Continue to monitor.
Skin: monitor for pressure sores/rashes/lesions.
Pain: acetaminophen or oxycodone as needed.
Bowel: Colace and Senna, PRN bisacodyl.
Bladder: Time void, PVRs, PRN straight cath.
GI Prophylaxis: Pantoprazole
DVT Prophylaxis: Note chemoprophylaxis (or if not SCDs and when chemotherapy prophylaxis can start).
Pulmonary: Incentive spirometry
Code Status: Full code
Dispo: SNF
Functional and Medical Goals: Modified Independent with ADL�s, ambulation, transfers
Summary
-
Things that must be addressed in Hospital prior to discharge:
Patient must be stable on oral pain medications.
Only Pigtail chest tubes are possible.
Blood pressure must be less than 180 systolic and 100 diastolic for 24 hours before being stable for transfer to SNF/acute rehab.
Please give blood pressure parameters.
Please comment on dvt chemoprophylaxis restrictions.
Discharge Destination: SNF
Summary of recommendations:
- Discharge Destination: SNF
Will sign off, please re-consult if needed.
Thank you for allowing me to care for your patient. Please contact me with any questions or concerns.
Comments
-
This note was dictated using a voice recognition system. Please excuse any typographical errors from production coordinator. If you believe there are any discrepancies, please notify our office.

Documented by User: Chao Rehman MD 03/07/25 00:05
Physical Exam
Physical Exam
Physical Exam:
General Appearance/Observation: Well-developed, well-nourished male in no apparent distress.
Pain/Comfort Assessment: Denies
Mood/Affect: Flat
Integumentary/Operative Site:
Pressure Ulcer: stage 4 sacral not visualized
Eyes: Conjunctiva/Lids: normal Pupils: pupils equal round and reactive to light and Accommodation
Ears/Nose/Throat: oral mucosa moist, throat clear. Lips/Teeth/Gums: normal
Neck: No muscle spasm or tenderness
Cardiovascular: Heart: regular rhythm, Canup or click
Pulses: dorsalis pedis 2+ bilaterally
Respiratory: Respiratory Effort/Chest Expansion: normal Auscultation: mildly decreased on R base, L clear to auscultation bilaterally, R chest catheter present with serosanguineous drainage
Gastrointestinal: abdomen not tender, no distension, normal abdominal bowel sounds
Genitourinary: No Becerra
Rectal Exam: Deferred
Extremities: Edema: None Cyanosis: None Trophic changes: None
Neurology Exam:
Orientation: Alert, Oriented to self, Time, Place, situation
Memory: Intact for recent medical concerns
Repetition: Intact
Comprehension: Intact
Two step command: Intact
Naming: Intact
Cranial Nerves:
CNII: Pupillary light reflex: Intact
CN VII: Facial movement: Symmetric
CN VIII: Hearing: Normal
CN IX/X: Speech & swallow: Normal, Position of Uvula: Midline
CN XI: Shoulder shrug: Symmetric
CN XII: Tongue protrusion: Midline
Sensory:
Light touch: Intact in bilateral upper and decreased below knees in lower extremities
Pinprick: deferred
Proprioception: decreased
Temperature: deferred
Reflexes:
Biceps: 2+ bilaterally
Brachioradialis: 2+ bilaterally
Triceps: 2+ bilaterally
Patellar: 2+ bilaterally
Achilles: 0 bilaterally
Babinski: Downgoing bilaterally
Clonus: None
Fernanda: Negative bilaterally
Cerebellar: Dysmetria/Ataxia: None
Musculoskeletal: Motor: (Manual muscle scale 0-5)
Muscle SA EF WE EE FF FA HF KE DF EHL PF
Right 4 5 5 5 5 4 4 5 5 5
Left 4 5 5 5 5 4 4 5 5 5
Tone: Normal in all extremities
Range of Motion: Passively within normal limits in all extremities
Assessment / Plan
Plan
PM&R PT/OT to increase independence with ADLs, improve balance, coordination, endurance, strength, mobility, community reintegration, decreased burden of care on others and family education.
Empyema: Chest tube, ceftriaxone, guaifenesin, Tessalon Perles
Peripheral polyneuropathy: Patient with a lower extremity polyneuropathy due to diabetes. Patient at high risk of falling with subsequent significant neuropathy. Gabapentin
HTN: continue medications, monitor closely
HLD: Statin, Zetia
Coronary artery disease : Aspirin, statin, beta-ellie
Atrial fibrillation: Warfarin anticoagulation. Amiodarone and metoprolol for rate control.
CHF: EF 45 %, beta ellie, Bumex monitor fluid status
DM II: Accu-Cheks, insulin sliding scale, Lantus and Januvia.
PAT: Not using CPAP.
Pressure ulcers: Vitamin C, zinc, multivitamin. Weight shifts in wheelchair and bed. Roho cushion. Pressure-relief boots. Lotrimin to fungal rash over buttocks and inguinal region as needed for fungal concerns.
-Had extensive discussion regarding proper positioning. He sitting in the chair with sacral sitting which she is going to make his pressure ulcer worse. He needs to be upright and potentially leaning a bit forward to make sure that he is
offloading the sacral area by loading the bilateral ischial areas. Discussed nutrition and the importance of increasing his nutrition to help have the calories needed to help heal after the empyema and having increased needs for the wound.
Anemia: Likely multifactorial. Continue to monitor.
Mood: Flat affect, being seen by psychiatry. Xanax as needed for anxiety. Remeron and depression.
Skin: monitor for pressure sores/rashes/lesions.
Pain: acetaminophen or oxycodone as needed.
Bowel: Colace and Senna, PRN bisacodyl.
Bladder: Time void, PVRs, PRN straight cath. Flomax
GI Prophylaxis: Pantoprazole
DVT Prophylaxis: Mechanical, on warfarin
Pulmonary: Incentive spirometry
Code Status: Full code
Dispo: SNF, overall patient is doing well but still requires min assist with ambulation and supervision with ADLs. Also needs help with management of chest tube as well as monitoring of INR and multiple other medical concerns as listed.
Functional and Medical Goals: Modified Independent with ADL�s, ambulation, transfers
Attending Statement: I performed a history and examined the patient 03/06/25.� I reviewed the care plan with therapy, nursing, and the resident.� I agree with the history and ROS above as modified.� The physical exam and plan documented reflects my
examination and plan.�� � � � �A total of 60 minutes were spent with the patient preparing for the evaluation, obtaining history, performing examination and evaluation, counseling, data review, case management, care coordination, order entry specialist, and
EMR documentation.
Summary
-
Discharge Destination: SNF
Pressure ulcers: Vitamin C, zinc, multivitamin. Weight shifts in wheelchair and bed. Roho cushion. Pressure-relief boots. Lotrimin to fungal rash over buttocks and inguinal region as needed for fungal concerns.
-Had extensive discussion regarding proper positioning. He sitting in the chair with sacral sitting which she is going to make his pressure ulcer worse. He needs to be upright and potentially leaning a bit forward to make sure that he is
offloading the sacral area by loading the bilateral ischial areas. Discussed nutrition and the importance of increasing his nutrition to help have the calories needed to help heal after the empyema and having increased needs for the wound.
Will sign off, please re-consult if needed.
Thank you for allowing me to care for your patient. Please contact me with any questions or concerns.
[2025-03-05] MEDS: PLAVIX 75 MG PO (09:05)
[2025-03-05] MEDS: FLOMAX 0.4 MG PO (09:05)
[2025-03-05] MEDS: COLACE 100 MG PO ×2 (09:05→21:04)
[2025-03-05] MEDS: NEURONTIN 100 MG PO ×3 (09:06→21:14)
[2025-03-05] MEDS: THERAGRAN 1 TABLET PO (09:06)
[2025-03-05 11:30] LABS: Glucose - Point of Care 229 mg/dl (70-99)
[2025-03-05] MEDS: NOVOLOG FLEXPEN-MODERATE RESISTANCE 3 UNITS SC (11:47)
--- NOTE | 2025-03-05 16:14 | WOUNDNOTE ---
WO RN NOTE: Patient visited to follow up on sacral stage 4 wound and left heel DTI, both present on admission. The sacral wound appears stable and Calazime was placed around the macerated edges of the wound. Order updated to add Calazime around
sacral wound. Left heel DTI appears stable. Patient declines off loading boots, but is agreeable to keep his heels off-loaded with pillows under calves when he is in bed. was present during assessment and understands plan of care. Patient
demonstrated ability to stand and pivot with walker. He sits in chair throughout the day and tries to off-load sacrum. Will provide patient Z-foam cushion to help maintain off-loading when sitting. He remains on a [place] [employer] and reports fair
appetite. Plan is for SNF. Will follow as needed. RNDebby given update.
[2025-03-05] MEDS: ROCEPHIN 2000 MG IV (16:39)
[2025-03-05] MEDS: STERILE WATER FOR INJECTION 20 ML IV (16:39)
--- NOTE | 2025-03-05 16:40 | CON.MD ---
Consultation - Medical
-
patient seen chart reviewed. spoke w nursing. present at bedside. this consult done today mar 05 2025. the patient is a 75 year old male who begins his story in fall of 2023 when he suffered an DE and went on to have one complication after
another which will not be detailed here. he spent some time at [facility] and went home for a short while but the confucianism of pulmonary issues in the form of recurrent effusions and infections have kept him hospitalized almost continuously at with
only short lived discharges to home before he is faced with another complication and returned to . at present he is struggling with anxiety. he feels he cannot get a good inspiration. nursing has tried to prove to him that his oxygenation is
adequate without much success initially. yesterday nursing suggested to him that he close his eyes and imagine being in his favorite place and this helped a little. incidentally his favorite place is being at work. 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 he denies any hx of depression or anxiety prior to currently although he did admit when i asked him about family hx that his brother had suicided and afterwards he found himself struggling with feeling guilty 'how did i miss this?' he said
he was not the sort of person to seek help and feels he dealt with it adequately. (the suicide was 20 years ago). he does sleep okay w trazodone 75 mg and oxycodone for pain. he does not have suicidal thoughts. there is nothing to suggest
psychosis. he feels he could enjoy life if he were well and home w family. he enumerated for me all the things he has missed being in the hosptial
past psych hx see above
medical hx see above patient has recurrent pleural effusions, chest tube placements, development of empyema. he has hx cad /DE, gerd htn hld middm valvular disease. 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
eustachian tube dysfunction. hx eliceo and bph.
fh brother suicided in the face of many difficulties 21 yo d dx w breast ca financial issues etc
substance abuse denied
social patient 48 years. 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 two kids. two grandkids who are also very supportive. has hobbies (wood
working) friends who are supportive [place]
mse alert ox3 cooperative pleasant. speech and thought process nl no psychosis affect appropriate mood is dysthymic and anxious no si above aver intell insight judgment ok
dx adjustment disorder with mixed features
plan encouraged patient to continue to use the technique nursing suggested to him of imagining himself in a place he loves to be. while he was engaged with me in conversation for about 50 minutes he did not appear short of breath so i suggested to
him that we need to find some activities to keep him occupied during the course of the day. will look into getting him some models perhaps that he can construct while here. i will bring him word searches and soduku. i also taught him another
technique ...you close your eyes and look right to left repeatedly and this apparently aids in anxiety and insomnia. there are other techniques such as prolonged expiration but given his breathing issues they may not be as helpful. have discussed
with patient and his replacing trazodone with remeron which may help with anxiety sleep and appetite. start with 7.5 mg/ also suggested small amounts of xanax 0.25 for severe anxiety. risk vs benefits explained. patient was taking bzp at [facility]
and he felt it helped him. psych will follow.
[2025-03-05 16:41] LABS: Glucose - Point of Care 150 mg/dl (70-99)
[2025-03-05] MEDS: NOVOLOG FLEXPEN-MODERATE RESISTANCE 1 UNITS SC (16:51)
[2025-03-05] MEDS: COUMADIN 2 MG PO (18:24)
[2025-03-05] MEDS: ZETIA 10 MG PO (18:24)
[2025-03-05] MEDS: VITAMIN D3 (cholecalciferol) 25 MCG PO (18:24)
[2025-03-05] MEDS: LIPITOR 40 MG PO (18:24)
--- NOTE | 2025-03-05 19:34 | PTCARENOTE ---
Pt with another episode of perplexing SOB/anxiety without any new resp. symptoms which resolved after assessing him, giving some oxygen briefly and talking with him. Plan for some medical changes and activities proposed by Psychiatry. No asept
drainage attempted today by KAYLEE, dressing is dry and intact. Telemetry shows sinus rhythm with first degree AV block. Pt walked in halls X2 today.
[2025-03-05] MEDS: REMOVE LIDOCAINE PATCH 1 PATCH REMOVE (21:04)
[2025-03-05] MEDS: REMERON 7.5 MG PO (21:14)
--- NOTE | 2025-03-05 22:09 | PTCARENOTE ---
Rec'd pt at change of shift. Pt AAO*3, VSS, and SR on TELE monitor with 1st degree hb. Pt denies any pain or discomfort. R chest tube dressing CDI. PT updated on plan of care and now resting with call xiao in reach. See MAR and flowchart for
full pt care and assessment.
[2025-03-05 22:19] LABS: Glucose - Point of Care 171 mg/dl (70-99)
[2025-03-05] MEDS: LANTUS 0.21 UNITS SC (22:30)
[2025-03-06] VITALS (8 sets, daily range): BP systolic 112–127; BP diastolic 54–74; PULSE 60; O2SAT 99; BMI 24.8
[2025-03-06] MEDS: TYLENOL 1000 MG PO (04:46)
[2025-03-06] MEDS: TESSALON PERLES 100 MG PO (04:59)
[2025-03-06 05:13] LABS: INR 1.71; PT 20.6 Sec (11.4-14.6)
[2025-03-06 07:14] LABS: Glucose - Point of Care 210 mg/dl (70-99)
--- NOTE | 2025-03-06 07:51 | W.PN.CT ---
Today's Communication / Plan
-
Plan:
-No major issues overnight
-s/p right pleural tunneled Pleurx catheter by IR on 03/03
-Chest CT on 03/03 showed: Tiny, decreased right pleural effusion and accompanying decreased right basilar opacification/consolidation. Persistent right pneumothorax versus trapped lung
-Has PICC line, on Rocephin until 03/30/25 for Klebsiella oxytoca from pleural fluid 02/17 and 02/26
-Wound care following sacral decubitus ulcer
-On Coumadin for mechanical AVR, received 2.5 on 02/26 and 2.5 on 02/27, held 02/28 and 03/01, got 1 mg Coumadin on 03/02, 03/03, and 03/04, and 2 mg on 03/05; INR today 1.71
-OOB into chair/Ambulate
-D/C with Pleurx catheter
-Deconditioned, PT/OT to evaluate for acute rehab placement. Physiatry evaluation
-Psych eval - Trazadone switched to Remeron, started on Xanax prn
-appreciate everyone's input
Assessment / Plan
-
75 year old male redo CABG August 2024 and recent robotic assisted right decortication and pleurodesis by Dr. Alejandre on 02/04/2025 for entrapped right lower lobe lung with recurrent pleural effusions, respiratory failure, and Klebsiella oxytoca empyema
#Klebsiella oxytoca empyema- continue Ceftriaxone 2G IV daily (end date 03/30) via RUE PICC
# Large complex loculated hydropneumothorax on the right
# Acute respiratory insufficiency on LFNC
# SOB
- s/p IR guided [address] on R, 300 cc out in IR--> s/p Successful placement of a right pleural tunneled Asept catheter by IR on 03/03/25
- pulmonary followed, signed off 03/03
- Amio for AF prophylaxis s/p lung surgery
- IS, OOB, PT
# s/p Mechanical AVR (On-X) 2008
- continue Warfarin 5mg daily
- follow INR
# CAD s/p CABG (2024)
- continue Lipitor, Toprol, Plavix, CoQ10, Zetia, Bumex
# T2DM w/neuropathy
- continue diabetic diet
- continue Januvia, Glargine, Farxiga, gabapentin
- POC glucose AC + HS w/SSI
# BPH
- continue Flomax
# Chronic sacral wound present on admission
- consult wound
- offload pressure
Discussed patient care with: Nursing and Care Team
Subjective
-
Date of Service: March 06, 2025
Objective Data
-
Lab Results
03/03/25 04:35
03/03/25 04:35
PT 20.6 Sec (11.4-14.6) H 03/06/25 04:25
INR 1.71 03/06/25 04:25
APTT 44.7 Sec (23.4-35.0) H 02/27/25 04:28
Vital Signs
Vital Signs
Temp Pulse Resp BP Pulse Ox
97.5 F 57 18 119/63 100
03/06/25 07:16 03/06/25 04:15 03/06/25 07:16 03/05/25 22:20 03/06/25 07:16
CT Intake/Output/Weight
03/05/25 03/06/25 03/06/25
18:59 06:59 18:59
Intake Total 960 / 960
Output Total 1050 / 1700 650 / 1700
Balance -90 / -740 -650 / -740
SaO2: 100
Physical Exam
-
General: Awake, Oriented and AOx3
Cardiovascular: Regular rate & rhythm
Respiratory: Decreased Breath Sounds (on right, otherwise clear)
Sternum: Stable
Incision: Clean, Dry, Intact and Dressing Intact
Extremities: Other (+trace edema)
Data Reviewed
-
Lab Results: Results Reviewed
Medications: Active Meds Reviewed
Chest X-Ray: Report Reviewed and Image Reviewed
ECG: Report Reviewed and Image Reviewed
[2025-03-06] MEDS: FARXIGA 10 MG PO (08:16)
[2025-03-06] MEDS: BUMEX 2 MG PO (08:16)
[2025-03-06] MEDS: MUCINEX 1200 MG PO ×2 (08:16→20:02)
[2025-03-06] MEDS: FLOMAX 0.4 MG PO (08:17)
[2025-03-06] MEDS: TOPROL XL 25 MG PO (08:17)
[2025-03-06] MEDS: PLAVIX 75 MG PO (08:17)
[2025-03-06] MEDS: THERAGRAN 1 TABLET PO (08:17)
[2025-03-06] MEDS: COLACE 100 MG PO ×2 (08:18→20:02)
[2025-03-06] MEDS: NEURONTIN 100 MG PO ×3 (08:18→22:16)
[2025-03-06] MEDS: PACERONE 200 MG PO (08:29)
[2025-03-06] MEDS: JANUVIA 100 MG PO (08:29)
[2025-03-06] MEDS: NOVOLOG FLEXPEN-MODERATE RESISTANCE 3 UNITS SC ×2 (08:43→12:44)
[2025-03-06] MEDS: LIDOCAINE 4% PATCH TOPICAL (09:40)
[2025-03-06 11:18] LABS: Glucose - Point of Care 221 mg/dl (70-99)
--- NOTE | 2025-03-06 15:13 | W.PN.UPDATE ---
Update Note
Progress Note Update
patient seen chart reviewed. spoke briefly with nursing. mr thomas reports he is feeling less anxious although this am 'choked' a pill got stuck in the side of his throat. despite this he is more hopeful that he is on the path to recovery. he had
complained of coughing. i did tell him i looked through his meds for ones that might contribute to cough (eg boris inhibitors) but did not find any. he said he found a remedy for coughing...'chewing gum...' he is hoping for dc to rehab soon. was
in to visit . she went home to let the dog out. patient old me about his dog. he is very fond of him and misses seeing him. mr thomas slept okay last night w remeron. he said he woke a couple of times but could fall back asleep. remeron can be
increased but patient wants to wait. he did not need xanax prn 'i don't want to be sleepy during the day'. encouraged him to divert his mind during the day eg do the puzzles i brought him,, practice imagining self in a + environment etc. psych
will see him tomorrow.
[2025-03-06] MEDS: STERILE WATER FOR INJECTION 20 ML IV (16:47)
[2025-03-06] MEDS: ROCEPHIN 2000 MG IV (16:47)
[2025-03-06] MEDS: ZETIA 10 MG PO (17:01)
[2025-03-06] MEDS: COUMADIN 3 MG PO (17:01)
[2025-03-06] MEDS: VITAMIN D3 (cholecalciferol) 25 MCG PO (17:02)
[2025-03-06] MEDS: LIPITOR 40 MG PO (17:02)
--- NOTE | 2025-03-06 18:00 | PTCARENOTE ---
Pt received this am with no c/o of any pain or sob. Room air sat 97%. Assisted oob to the chair and tolerated well until after lunch. Right Pleurex cath intact, dressing dry.
[2025-03-06] MEDS: NOVOLOG FLEXPEN-MODERATE RESISTANCE 1 UNITS SC (18:02)
[2025-03-06 18:03] LABS: Glucose - Point of Care 183 mg/dl (70-99)
--- NOTE | 2025-03-06 18:31 | W.PN.UPDATE ---
Update Note
Progress Note Update
PleurX catheter attached to suction drainage with 50 cc serosanguineous return. Next drainage expected on 03/09/2025.
[2025-03-06] MEDS: REMOVE LIDOCAINE PATCH REMOVE (20:02)
[2025-03-06 22:10] LABS: Glucose - Point of Care 153 mg/dl (70-99)
[2025-03-06] MEDS: LANTUS 0.21 UNITS SC (22:16)
[2025-03-06] MEDS: REMERON 7.5 MG PO (22:16)
--- NOTE | 2025-03-06 22:46 | PTCARENOTE ---
Received patient at change of shift. SR on the monitor, HR in the 60s. RUE restriction in place. Right side dressing intact, no drainage noted at this time. No complaints from pt at this time, call xiao within reach.
[2025-03-07] VITALS (7 sets, daily range): BP systolic 101–132; BP diastolic 50–70; O2SAT 98; BMI 24.9
[2025-03-07] MEDS: XANAX 0.25 MG PO ×2 (00:39→21:31)
--- NOTE | 2025-03-07 02:22 | W.PN.CT ---
Today's Communication / Plan
-
Plan:
-No major issues overnight. Pt is looking forward to discharge
-s/p right pleural tunneled Pleurx catheter by IR on 03/03.
-PleurX was drained on 03/06. Next drainage planned on Mon 03/09
-Has PICC line, on Rocephin until 03/30/25 for Klebsiella oxytoca from pleural fluid 02/17 and 02/26
-Wound care following sacral decubitus ulcer
-On Coumadin for mechanical AVR, received 2.5 on 02/26 and 2.5 on 02/27, held 02/28 and 03/01, got 1 mg Coumadin on 03/02, 03/03, and 03/04, and 2 mg on 03/05, 3 mg on 03/06; INR today 1.87
-OOB into chair/Ambulate
-Deconditioned, PT/OT to evaluate for acute rehab placement. Physiatry evaluation
-Psych eval - Trazadone switched to Remeron, started on Xanax prn
-appreciate everyone's input
-awaiting bed in rehab
Assessment / Plan
-
75 year old male redo CABG August 2024 and recent robotic assisted right decortication and pleurodesis by Dr. Alejandre on 02/04/2025 for entrapped right lower lobe lung with recurrent pleural effusions, respiratory failure, and Klebsiella oxytoca empyema
#Klebsiella oxytoca empyema- continue Ceftriaxone 2G IV daily (end date 03/30) via RUE PICC
# Large complex loculated hydropneumothorax on the right
# Acute respiratory insufficiency on LFNC
# SOB
- s/p IR guided [address] on R, 300 cc out in IR--> s/p Successful placement of a right pleural tunneled Asept catheter by IR on 03/03/25
- pulmonary followed, signed off 03/03
- Amio for AF prophylaxis s/p lung surgery
- IS, OOB, PT
# s/p Mechanical AVR (On-X) 2008
- continue Warfarin 5mg daily
- follow INR
# CAD s/p CABG (2024)
- continue Lipitor, Toprol, Plavix, CoQ10, Zetia, Bumex
# T2DM w/neuropathy
- continue diabetic diet
- continue Januvia, Glargine, Farxiga, gabapentin
- POC glucose AC + HS w/SSI
# BPH
- continue Flomax
# Chronic sacral wound present on admission
- consult wound
- offload pressure
Discussed patient care with: Nursing and Care Team
Subjective
-
Date of Service: March 07, 2025
Objective Data
-
Lab Results
03/03/25 04:35
03/03/25 04:35
PT 20.6 Sec (11.4-14.6) H 03/06/25 04:25
INR 1.71 03/06/25 04:25
APTT 44.7 Sec (23.4-35.0) H 02/27/25 04:28
Vital Signs
Vital Signs
Temp Pulse Resp BP Pulse Ox
98.5 F 67 20 118/62 96
03/06/25 22:50 03/06/25 21:00 03/06/25 22:50 03/06/25 18:29 03/06/25 22:50
CT Intake/Output/Weight
03/06/25 03/06/25 03/07/25
06:59 18:59 06:59
Output Total 650 / 1700 350 / 550 200 / 550
Balance -650 / -740 -350 / -550 -200 / -550
SaO2: 96
Physical Exam
-
General: Awake, Oriented and AOx3
Cardiovascular: Regular rate & rhythm
Respiratory: Decreased Breath Sounds (on right, otherwise clear)
Sternum: Stable
Incision: Clean, Dry, Intact and Dressing Intact
Extremities: Other (+trace edema)
Data Reviewed
-
Lab Results: Results Reviewed
Medications: Active Meds Reviewed
Chest X-Ray: Report Reviewed and Image Reviewed
ECG: Report Reviewed and Image Reviewed
--- NOTE | 2025-03-07 03:40 | PTCARENOTE ---
Patient rang call xiao and complained of anxiety. PRN Xanax administered as per order, see MAR. Patient now sleeping.
[2025-03-07 04:29] LABS: INR 1.87; PT 21.7 Sec (11.4-14.6)
[2025-03-07 07:48] LABS: Glucose - Point of Care 135 mg/dl (70-99)
[2025-03-07] MEDS: NOVOLOG FLEXPEN-MODERATE RESISTANCE SC ×2 (08:37→16:39)
[2025-03-07] MEDS: FARXIGA 10 MG PO (08:42)
[2025-03-07] MEDS: MUCINEX 1200 MG PO ×2 (08:42→19:12)
[2025-03-07] MEDS: PLAVIX 75 MG PO (08:42)
[2025-03-07] MEDS: NEURONTIN 100 MG PO ×3 (08:43→22:24)
[2025-03-07] MEDS: JANUVIA 100 MG PO (08:44)
[2025-03-07] MEDS: FLOMAX 0.4 MG PO (08:44)
[2025-03-07] MEDS: TOPROL XL 25 MG PO (08:45)
[2025-03-07] MEDS: COLACE 100 MG PO ×2 (08:45→19:12)
[2025-03-07] MEDS: PACERONE 200 MG PO (08:45)
[2025-03-07] MEDS: BUMEX 2 MG PO (08:48)
[2025-03-07] MEDS: LIDOCAINE 4% PATCH TOPICAL (08:50)
[2025-03-07] MEDS: THERAGRAN 1 TABLET PO (09:48)
[2025-03-07 11:51] LABS: Glucose - Point of Care 241 mg/dl (70-99)
[2025-03-07] MEDS: NOVOLOG FLEXPEN-MODERATE RESISTANCE 3 UNITS SC (11:54)
[2025-03-07] MEDS: STERILE WATER FOR INJECTION 20 ML IV (16:06)
[2025-03-07] MEDS: ROCEPHIN 2000 MG IV (16:10)
[2025-03-07 16:35] LABS: Glucose - Point of Care 140 mg/dl (70-99)
--- NOTE | 2025-03-07 16:50 | W.PN.UPDATE ---
Update Note
Progress Note Update
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 Now gets panic attacks and has insomnia. Has had some benefit from mirtazapine. Benefitted from PRN Xanax
last evening.
He is alert and seated next to his bed. in room. He is pleasant, alert and cognitively clear. Frustrated by having so many medical complications. Eager to go home (would prefer not to go to rehab first). Has 13 steps to bedroom at home, but
could sleep in recliner. In PT at hospital.
I offered to give Xanax each evening to try to prevent panic attacks which occur in the evening and may also be contributing to dyspnea. No past history of lung disease. Had CPAP when his weight was over 300 lbs. Will maintain Xanax 0.25 mg. Q8H
PRN order and may give four hours after scheduled dose if necessary.
Psychiatry will follow.
[2025-03-07] MEDS: VITAMIN D3 (cholecalciferol) 25 MCG PO (17:17)
[2025-03-07] MEDS: LIPITOR 40 MG PO (17:17)
[2025-03-07] MEDS: ZETIA 10 MG PO (17:17)
[2025-03-07] MEDS: COUMADIN 2 MG PO (18:09)
[2025-03-07] MEDS: REMOVE LIDOCAINE PATCH REMOVE (19:14)
[2025-03-07 21:36] LABS: Glucose - Point of Care 139 mg/dl (70-99)
[2025-03-07] MEDS: REMERON 7.5 MG PO (22:24)
[2025-03-07] MEDS: LANTUS 0.21 UNITS SC (22:24)
--- NOTE | 2025-03-07 22:46 | PTCARENOTE ---
Received patient at change of shift. SR with a first degree on the monitor, HR in the 60s. RUE restriction in place. Right side dressing intact, no drainage noted at this time. No complaints from pt at this time, call xiao within reach.
[2025-03-08 04:36] VITALS: BP 110/56
[2025-03-08 05:01] VITALS: BMI 24.7
[2025-03-08 05:23] LABS: INR 1.72; PT 20.3 Sec (11.4-14.6)
--- NOTE | 2025-03-08 05:49 | W.PN.CT ---
Today's Communication / Plan
-
Plan:
-Dispo planning, possibly Sunday
-s/p right pleural tunneled Pleurx catheter by IR on 03/03.
-PleurX was drained on 03/06. Next drainage planned on 03/09
-Has PICC line, on Rocephin until 03/30/25 for Klebsiella oxytoca from pleural fluid 02/17 and 02/26
-Wound care following sacral decubitus ulcer
-On Coumadin for mechanical AVR, received 2.5 on 02/26 and 2.5 on 02/27, held 02/28 and 03/01, got 1 mg Coumadin on 03/02, 03/03, and 03/04, and 2 mg on 03/05, 3 mg on 03/06; INR today 1.72
-OOB into chair/Ambulate
-Deconditioned, PT/OT to evaluate for acute rehab placement. Physiatry evaluation
-Psych eval - Trazadone switched to Remeron, started on Xanax prn
-appreciate everyone's input
-awaiting bed in rehab
Assessment / Plan
-
75 year old male redo CABG August 2024 and recent robotic assisted right decortication and pleurodesis by Dr. Alejandre on 02/04/2025 for entrapped right lower lobe lung with recurrent pleural effusions, respiratory failure, and Klebsiella oxytoca empyema
#Klebsiella oxytoca empyema- continue Ceftriaxone 2G IV daily (end date 03/30) via RUE PICC
# Large complex loculated hydropneumothorax on the right
# Acute respiratory insufficiency on LFNC
# SOB
- s/p IR guided [address] on R, 300 cc out in IR--> s/p Successful placement of a right pleural tunneled Asept catheter by IR on 03/03/25
- pulmonary followed, signed off 03/03
- Amio for AF prophylaxis s/p lung surgery
- IS, OOB, PT
# s/p Mechanical AVR (On-X) 2008
- continue Warfarin 5mg daily
- follow INR
# CAD s/p CABG (2024)
- continue Lipitor, Toprol, Plavix, CoQ10, Zetia, Bumex
# T2DM w/neuropathy
- continue diabetic diet
- continue Januvia, Glargine, Farxiga, gabapentin
- POC glucose AC + HS w/SSI
# BPH
- continue Flomax
# Chronic sacral wound present on admission
- consult wound
- offload pressure
Subjective
-
Date of Service: March 08, 2025
Objective Data
-
Lab Results
03/03/25 04:35
03/03/25 04:35
PT 20.3 Sec (11.4-14.6) H 03/08/25 04:42
INR 1.72 03/08/25 04:42
APTT 44.7 Sec (23.4-35.0) H 02/27/25 04:28
Vital Signs
Vital Signs
Temp Pulse Resp BP Pulse Ox
97.9 F 63 18 110/56 100
03/08/25 04:43 03/08/25 05:00 03/08/25 04:43 03/08/25 04:36 03/08/25 04:43
CT Intake/Output/Weight
03/07/25 03/07/25 03/08/25
06:59 18:59 06:59
Output Total 200 / 550
Balance -200 / -550
SaO2: 100
Physical Exam
-
General: Awake and Oriented
Cardiovascular: Regular rate & rhythm
Respiratory: Clear and Equal
Extremities: Edema +1
Data Reviewed
-
Lab Results: Results Reviewed
Medications: Active Meds Reviewed
Chest X-Ray: Report Reviewed
ECG: Report Reviewed
[2025-03-08 07:25] VITALS: BP 110/62
[2025-03-08 07:43] LABS: Glucose - Point of Care 130 mg/dl (70-99)
[2025-03-08] MEDS: BUMEX 2 MG PO (08:34)
[2025-03-08] MEDS: JANUVIA 100 MG PO (08:35)
[2025-03-08] MEDS: PLAVIX 75 MG PO (08:35)
[2025-03-08] MEDS: MUCINEX 1200 MG PO ×2 (08:35→20:24)
[2025-03-08] MEDS: TOPROL XL 25 MG PO (08:35)
[2025-03-08] MEDS: THERAGRAN 1 TABLET PO (08:35)
[2025-03-08] MEDS: NEURONTIN 100 MG PO ×3 (08:36→22:33)
[2025-03-08] MEDS: PACERONE 200 MG PO (08:37)
[2025-03-08] MEDS: FARXIGA 10 MG PO (08:37)
[2025-03-08] MEDS: COLACE 100 MG PO ×2 (08:37→20:24)
[2025-03-08] MEDS: FLOMAX 0.4 MG PO (08:38)
[2025-03-08] MEDS: LIDOCAINE 4% PATCH TOPICAL (08:38)
[2025-03-08] MEDS: NOVOLOG FLEXPEN-MODERATE RESISTANCE SC ×2 (08:40→17:47)
--- NOTE | 2025-03-08 09:29 | W.PN.UPDATE ---
Update Note
Progress Note Update
Seen for follow-up after ordering Xanax 0.25 mg. at 9 PM yesterday due to evening panic attacks and insomnia (prior night did not fall asleep until 3 AM). Both he and the nurse report he slept well from 11:00 PM until 7:00 AM and has no panic
attacks. O2 good on room air.
He is alert, eating breakfast and in good spirits. Affect appropriate. Eager to walk.
He would like to go directly home, but it seems the medical team and his favor rehab first.
He was informed of the potential for being unsteady and at increased risk of falls on Xanax and to be careful should he get up during the night. Also aware that there are PRN doses available, but best to minimize use.
Psychiatry will sign off (likely for discharge tomorrow).
[2025-03-08 11:39] VITALS: BP 125/83
[2025-03-08] MEDS: NOVOLOG FLEXPEN-MODERATE RESISTANCE 5 UNITS SC (12:20)
[2025-03-08 12:25] LABS: Glucose - Point of Care 263 mg/dl (70-99)
[2025-03-08 15:22] VITALS: BP 142/76
[2025-03-08] MEDS: STERILE WATER FOR INJECTION 20 ML IV (15:33)
[2025-03-08] MEDS: ROCEPHIN 2000 MG IV (15:35)
[2025-03-08 16:48] LABS: Glucose - Point of Care 135 mg/dl (70-99)
--- NOTE | 2025-03-08 17:00 | PTCARENOTE ---
Pt received this am with no c/o of any pain or sob. Room air sat 97%. OOB with 1 assist and the walker, gait steady. Ambulated in the hallway with the nurse and sat in the lounge with his . SB - SR, rate in the 50's to 60's.
[2025-03-08] MEDS: LIPITOR 40 MG PO (17:11)
[2025-03-08] MEDS: VITAMIN D3 (cholecalciferol) 25 MCG PO (17:11)
[2025-03-08] MEDS: ZETIA 10 MG PO (17:11)
[2025-03-08] MEDS: COUMADIN 3 MG PO (17:53)
[2025-03-08 19:10] VITALS: BP 126/61
[2025-03-08] MEDS: REMOVE LIDOCAINE PATCH REMOVE (20:24)
[2025-03-08] MEDS: XANAX 0.25 MG PO (20:36)
[2025-03-08 22:25] LABS: Glucose - Point of Care 172 mg/dl (70-99)
[2025-03-08 22:32] VITALS: BP 116/64
[2025-03-08] MEDS: LANTUS 0.21 UNITS SC (22:33)
[2025-03-08] MEDS: REMERON 7.5 MG PO (22:33)
[2025-03-09] VITALS (7 sets, daily range): BP systolic 109–138; BP diastolic 60–74; PULSE 60; BMI 24.9
[2025-03-09 04:45] LABS: INR 1.63; PT 19.6 Sec (11.4-14.6)
[2025-03-09 04:46] LABS: Hematocrit 31.5 % (39.0-52.0); Hemoglobin 9.8 g/dL (13.0-18.0); Mean Corp Hgb Conc. 31.1 g/dL (33.0-37.0); Mean Corpuscular Volume 83.1 fL (80.0-94.0); Platelet Count 307 10^3/uL (130-400); Red Cell Dist. Width 17.2 % (11.5-14.5)
[2025-03-09 05:18] LABS: Blood Urea Nitrogen 35 mg/dl (9-20); Calcium 8.5 mg/dl (8.4-10.2); Carbon Dioxide 28 mmol/L (22-30); Chloride 107 mmol/L (98-107); Estimated Creatinine Clearance 77 ml/min; Glucose 141 mg/dl (70-99); Potassium 4.3 mmol/L (3.5-5.1); Sodium 137 mmol/L (135-145); eGFR > 60.00
--- NOTE | 2025-03-09 05:36 | W.PN.CT ---
Addendum entered and electronically signed by Patrice Delatorre MD 03/09/25 06:28:
I saw and examined the patient.
The PA's note was reviewed and I agree with the note.
Comment:
PleurX catheter mgmt, planned drainage today
Coumadin dosing for goal INR 2.0-2.5 - 3mg again tonight
OOB/IS/ambulate
Acute rehab placement pending
Original Note:
Today's Communication / Plan
-
Plan:
-Dispo planning, possibly today
-s/p right pleural tunneled Pleurx catheter by IR on 03/03.
-PleurX was drained on 03/06. Next drainage planned on 03/09 before DC
-Has PICC line, on Rocephin until 03/30/25 for Klebsiella oxytoca from pleural fluid 02/17 and 02/26
-Wound care following sacral decubitus ulcer
-On Coumadin for mechanical AVR, received 2.5 on 02/26 and 2.5 on 02/27, held 02/28 and 03/01, INR today 1.63
-OOB into chair/Ambulate
-Deconditioned, PT/OT to evaluate for acute rehab placement. Physiatry evaluation
-Psych eval - Trazadone switched to Remeron, started on Xanax prn
-appreciate everyone's input
-awaiting bed in rehab
Assessment / Plan
-
75 year old male redo CABG August 2024 and recent robotic assisted right decortication and pleurodesis by Dr. Alejandre on 02/04/2025 for entrapped right lower lobe lung with recurrent pleural effusions, respiratory failure, and Klebsiella oxytoca empyema
#Klebsiella oxytoca empyema- continue Ceftriaxone 2G IV daily (end date 03/30) via RUE PICC
# Large complex loculated hydropneumothorax on the right
# Acute respiratory insufficiency on LFNC
# SOB
- s/p IR guided [address] on R, 300 cc out in IR--> s/p Successful placement of a right pleural tunneled Asept catheter by IR on 03/03/25
- pulmonary followed, signed off 03/03
- Amio for AF prophylaxis s/p lung surgery
- IS, OOB, PT
# s/p Mechanical AVR (On-X) 2008
- continue Warfarin 5mg daily
- follow INR
# CAD s/p CABG (2024)
- continue Lipitor, Toprol, Plavix, CoQ10, Zetia, Bumex
# T2DM w/neuropathy
- continue diabetic diet
- continue Januvia, Glargine, Farxiga, gabapentin
- POC glucose AC + HS w/SSI
# BPH
- continue Flomax
# Chronic sacral wound present on admission
- consult wound
- offload pressure
Subjective
-
Date of Service: March 09, 2025
Objective Data
-
Lab Results
03/09/25 04:26
03/09/25 04:26
PT 19.6 Sec (11.4-14.6) H 03/09/25 04:26
INR 1.63 03/09/25 04:26
APTT 44.7 Sec (23.4-35.0) H 02/27/25 04:28
Vital Signs
Vital Signs
Temp Pulse Resp BP Pulse Ox
98 F 65 18 116/64 98
03/09/25 04:45 03/08/25 22:32 03/09/25 04:45 03/08/25 22:32 03/09/25 04:45
CT Intake/Output/Weight
03/08/25 03/08/25 03/09/25
06:59 18:59 06:59
Output Total 300 / 300
Balance -300 / -300
SaO2: 98
Physical Exam
-
General: Awake and Oriented
Cardiovascular: Regular rate & rhythm
Respiratory: Clear and Decreased Breath Sounds
Incision: Clean and Dry
Extremities: Edema +1
Data Reviewed
-
Lab Results: Results Reviewed
Medications: Active Meds Reviewed
Chest X-Ray: Report Reviewed
ECG: Report Reviewed
[2025-03-09 07:33] LABS: Glucose - Point of Care 143 mg/dl (70-99)
[2025-03-09] MEDS: NOVOLOG FLEXPEN-MODERATE RESISTANCE SC (08:48)
[2025-03-09] MEDS: THERAGRAN 1 TABLET PO (08:56)
[2025-03-09] MEDS: COLACE 100 MG PO ×2 (08:56→21:03)
[2025-03-09] MEDS: FARXIGA 10 MG PO (08:56)
[2025-03-09] MEDS: TESSALON PERLES 100 MG PO (08:56)
[2025-03-09] MEDS: NEURONTIN 100 MG PO ×3 (08:56→22:52)
[2025-03-09] MEDS: PLAVIX 75 MG PO (08:56)
[2025-03-09] MEDS: JANUVIA 100 MG PO (08:57)
[2025-03-09] MEDS: PACERONE 200 MG PO (08:57)
[2025-03-09] MEDS: MUCINEX 1200 MG PO (08:57)
[2025-03-09] MEDS: FLOMAX 0.4 MG PO (08:57)
[2025-03-09] MEDS: BUMEX 2 MG PO (08:57)
[2025-03-09] MEDS: TOPROL XL 25 MG PO (08:57)
[2025-03-09] MEDS: LIDOCAINE 4% PATCH TOPICAL (08:58)
[2025-03-09 11:38] LABS: Glucose - Point of Care 271 mg/dl (70-99)
[2025-03-09] MEDS: NOVOLOG FLEXPEN-MODERATE RESISTANCE 5 UNITS SC (12:11)
--- NOTE | 2025-03-09 13:27 | PTCARENOTE ---
received this kind patient this am, sleepy but easily aroused, monitor shows NSR with a first degree, VSS. PT/OT seeing patient to see if he can go home or be sent to rehab. patient wants to be discharged to home. right side tube intact, dsg. D/I.
right upper PICC line intact. INR 1.63 will given Coumadin tonight as ordered. patient c/o dry cough, Tessalon pearls po given as ordered. at bedside.
--- NOTE | 2025-03-09 14:28 | PN.IRAD.UPD ---
Update Note - IRAD
- -
Right Asept catheter drained bedside per order from Colette Watkins. Upon arrival it is noted that the Asept catheter is exposed and hanging out of the dressing along the patients side. This is not the dressing that was placed by IRAD on 03/03.
Dressing was removed, site was cleaned, catheter was drained for 250ml yellow fluid and air. Post drainage the site cleaned and re-dressed in the correct fashion. Patient tolerated well. Reviewed with patients that she did speak with
Cristobal and did receive a shipment of bottles at home for drainage.
[2025-03-09] MEDS: STERILE WATER FOR INJECTION 20 ML IV (16:03)
[2025-03-09] MEDS: ROCEPHIN 2000 MG IV (16:03)
[2025-03-09] MEDS: FLUSH (NSS) 2 FLUSH IV (16:04)
[2025-03-09 17:14] LABS: Glucose - Point of Care 153 mg/dl (70-99)
[2025-03-09] MEDS: COUMADIN 3 MG PO (17:25)
[2025-03-09] MEDS: NOVOLOG FLEXPEN-MODERATE RESISTANCE 1 UNITS SC (17:25)
[2025-03-09] MEDS: LIPITOR 40 MG PO (17:26)
[2025-03-09] MEDS: ZETIA 10 MG PO (17:26)
[2025-03-09] MEDS: VITAMIN D3 (cholecalciferol) 25 MCG PO (17:26)
[2025-03-09] MEDS: REMOVE LIDOCAINE PATCH REMOVE (21:03)
[2025-03-09] MEDS: XANAX 0.25 MG PO (21:03)
[2025-03-09 22:43] LABS: Glucose - Point of Care 167 mg/dl (70-99)
[2025-03-09] MEDS: REMERON 7.5 MG PO (22:52)
[2025-03-09] MEDS: LANTUS 0.21 UNITS SC (22:52)
[2025-03-10] MEDS: MUCINEX 1200 MG PO (00:10)
--- NOTE | 2025-03-10 00:24 | PTCARENOTE ---
Pt AAOx3, VSS, and sating 98% RA. Tele monitor shows SB-NSR w/ 1st AV block. HR in the 50-60's at rest. Denies any pain. Voiding in urinal without difficulty. C/o nonproductive cough, this RN administered PRN Mucinex--see MAR for details. Pts
breathing is equal and unlabored. Aware of POC, and uses call xiao appropriately.
[2025-03-10 04:20] VITALS: BP 132/76
[2025-03-10 04:27] VITALS: BMI 24.7
[2025-03-10 05:05] LABS: INR 1.70; PT 20.1 Sec (11.4-14.6)
[2025-03-10 06:44] LABS: Glucose - Point of Care 132 mg/dl (70-99)
--- NOTE | 2025-03-10 07:17 | W.PN.CT ---
Today's Communication / Plan
-
Plan:
-S/p right pleural tunneled Pleurx catheter by IR on 03/03.
-PleurX was drained yesterday 03/09/25 by IR for 250 mL serous fluid
-Has PICC line, on Rocephin until 03/30/25 for Klebsiella oxytoca from pleural fluid 02/17 and 02/26
-Wound care following sacral decubitus ulcer
-On Coumadin for mechanical AVR, received 3mg last night, INR today 1.63-> 1.70
-OOB into chair/Ambulate
-Pt did not tolerate Trazadone, switched to Remeron, on Xanax PRN per Pshych
-Psych eval - Trazadone switched to Remeron, started on Xanax prn
-For D/C home with home PT likely today 03/09/25
Assessment / Plan
-
75 year old male redo CABG August 2024 and recent robotic assisted right decortication and pleurodesis by Dr. Alejandre on 02/04/2025 for entrapped right lower lobe lung with recurrent pleural effusions, respiratory failure, and Klebsiella oxytoca empyema
#Klebsiella oxytoca empyema- continue Ceftriaxone 2G IV daily (end date 03/30) via RUE PICC
# Large complex loculated hydropneumothorax on the right
# Acute respiratory insufficiency on LFNC
# SOB
- s/p IR guided [address] on R, 300 cc out in IR--> s/p Successful placement of a right pleural tunneled Asept catheter by IR on 03/03/25
- pulmonary followed, signed off 03/03
- Amio for AF prophylaxis s/p lung surgery
- IS, OOB, PT
# s/p Mechanical AVR ([employer] Rolly Mechanical Valve), 2008
- continue Warfarin 5mg daily
- follow INR
# CAD s/p CABG (2024)
- continue Lipitor, Toprol, Plavix, CoQ10, Zetia, Bumex
# T2DM w/neuropathy
- continue diabetic diet
- continue Januvia, Glargine, Farxiga, gabapentin
- POC glucose AC + HS w/SSI
# BPH
- continue Flomax
# Chronic sacral wound present on admission
- consult wound
- offload pressure
Discussed patient care with: Cardiology, Nursing, Respiratory Therapy, Pharmacy and Care Team
Subjective
-
Date of Service: March 10, 2025
Pt denies CP/SOB overnight
Objective Data
-
Lab Results
03/09/25 04:26
03/09/25 04:26
PT 20.1 Sec (11.4-14.6) H 03/10/25 04:37
INR 1.70 03/10/25 04:37
APTT 44.7 Sec (23.4-35.0) H 02/27/25 04:28
Vital Signs
Vital Signs
Temp Pulse Resp BP Pulse Ox
97.8 F 58 18 132/76 94
03/10/25 04:20 03/10/25 06:00 03/10/25 04:20 03/10/25 04:20 03/10/25 04:20
CT Intake/Output/Weight
03/09/25 03/10/25 03/10/25
18:59 06:59 18:59
Output Total 600 / 1550 950 / 1550
Balance -600 / -1550 -950 / -1550
SaO2: 94 (RA)
Physical Exam
-
General: Awake, Oriented and AOx3
Cardiovascular: Regular rate & rhythm
Respiratory: Decreased Breath Sounds (at right base, otherwise clear)
Sternum: Stable
Incision: Clean, Dry, Intact and Dressing Intact
Extremities: Other (+trace edema)
Data Reviewed
-
Lab Results: Results Reviewed
Medications: Active Meds Reviewed
Chest X-Ray: Report Reviewed and Image Reviewed
ECG: Report Reviewed and Image Reviewed
[2025-03-10 07:28] VITALS: BP 124/67
[2025-03-10] MEDS: NOVOLOG FLEXPEN-MODERATE RESISTANCE SC (07:33)
[2025-03-10] MEDS: COLACE 100 MG PO (08:01)
[2025-03-10] MEDS: FARXIGA 10 MG PO (08:01)
[2025-03-10] MEDS: PLAVIX 75 MG PO (08:01)
[2025-03-10] MEDS: JANUVIA 100 MG PO (08:01)
[2025-03-10] MEDS: FLOMAX 0.4 MG PO (08:01)
[2025-03-10] MEDS: BUMEX 2 MG PO (08:01)
[2025-03-10] MEDS: THERAGRAN 1 TABLET PO (08:01)
[2025-03-10] MEDS: PACERONE 200 MG PO (08:01)
[2025-03-10] MEDS: TOPROL XL 25 MG PO (08:02)
[2025-03-10] MEDS: NEURONTIN 100 MG PO ×2 (08:02→14:43)
[2025-03-10] MEDS: LIDOCAINE 4% PATCH TOPICAL (08:02)
[2025-03-10] MEDS: TESSALON PERLES 100 MG PO (08:03)
--- NOTE | 2025-03-10 09:28 | PTCARENOTE ---
received patient sitting up in chair, patient looks exhausted and has moist cough, Tessalon pearls po given as ordered. patient stated that he didn't sleep well last night. patient is excited that he will go home today. offered patient to get shower
here, patient stated I want to go home shave and then shower. monitor shows NSR with a first degree. VSS. TT CVPA, patient doesn't want Remeron anymore he states that he gets nightmares, ordered trazodone for him again. right pleural tunneled Pleurx
catheter dsg. D/I, no pain at site. I/S used 1500.
[2025-03-10] MEDS: LOVENOX 80 MG SC (12:11)
[2025-03-10] MEDS: NOVOLOG FLEXPEN-MODERATE RESISTANCE 3 UNITS SC (12:14)
[2025-03-10 12:16] LABS: Glucose - Point of Care 224 mg/dl (70-99)
[2025-03-10 12:18] VITALS: BP 128/70
--- NOTE | 2025-03-10 12:45 | PTCARENOTE ---
patient showered with assistance
[2025-03-10] MEDS: ROCEPHIN 2000 MG IV (14:42)
[2025-03-10] MEDS: FLUSH (NSS) 2 FLUSH IV (14:42)
[2025-03-10] MEDS: STERILE WATER FOR INJECTION 20 ML IV (14:43)
--- NOTE | 2025-03-10 14:53 | W.DCSUMMARY ---
Documented by User: Colette Watkins NP 03/10/25 15:11
Discharge Summary
Discharge Data
Date of Admission: 02/26/25
Date of Discharge: 03/10/25
-
Pending Results: No
Additional Pending Results:
Primary care physician: Dr. Kyrie Asher
Inpatient consultants: Pulmonary, Psychiatry, Interventional Radiology
Procedures:
1.
Primary Diagnosis:
1.
Secondary Diagnoses:
1.
HPI: Patient is a 75-year-old male who is well-known to cardiac surgery service from Mechanical AVR ([employer] Rolly)/CABG 2008-chronic anticoagulation (Coumadin); PCI 2024 complicated by spiral dissection of the DE LOS SANTOS subsequent redo CABG 08/2024, and right
robotic assisted RML/RLL with chest wall decortication and pleurodesis on with Dr. Alejandre. Patient was discharged home on 02/11 with Heimlich valve and readmitted for empyema. Patient required an IR chest tube in addition to his
surgical Heimlich. Pleural fluid grew Klebsiella oxytoca and ceftriaxone 2 g IV daily x 6 weeks initiated with end date of 03/30/2025. Chest tubes were removed prior to discharge. Patient presented to [facility] ER on 02/26/25 with increased frequency of
coughing and shortness of breath.
Hospital course:
Home medication changes:
Discharge Plan
-
Patient Disposition: Home (Routine Discharge)
Discharge Diagnosis/Procedures: recurrent loculated R hydropneumothorax requiring lytic therapy and Pleurex catheter
Condition: Good
Diet: Low Cholesterol, Low Sodium and Diabetic, Carb Controlled
Activity: No strenuous activity
Driving Restrictions: Not until seen by your Dr
Bathing Restrictions: keep pleur-x catheter clean, dry and intact
Blood Work: INR to be checked by Visiting Nurse on 03/11/25. Please call results to Cardiology Office for Coumadin dosing.
Others Tests: Please obtain 2-view chest x-ray prior to your appointment with Dr. Alejandre.
- To obtain your Chest X-ray, please go to the registration desk through the main entrance of [facility].
- The order for your X-ray was placed by the Cardiac Surgery RADIOLOGY TRANSCRIPTIONISTCatia.
Other Services: VN, PT and OT
Wound Care: Keep Pleur-X catheter dressing clean, dry, intact. Change dressing daily, or as needed.
Activity Restrictions/Additional Instructions:
Wound Care Instructions Sacrum: clean with saline, skin prep periwound. Cut small piece of collagen dressing and apply a small amount of saline to collagen. Gently pack wound ('fluff not stuff) and cover with 2x2 and dry dressing change daily.
Bilateral Heel- No-sting barrier and adhesive foam. Change Q 3 days and PRN. Be sure to keep heels off-loaded as left heel has DTI. Please call WOC RN if left heel opens or worsens.
Follow up at wound care center call for an appointment.
Pleurx Catheter Instructions
- Drain catheter on 03/11/25 and record output
- Continue to drain catheter 2-3 times per week and record output amount and color
- If drainage is less that 100 mL, wait 3-days until draining again
- If further questions arise, please call the Cardiac Surgery Office
Referrals:
[facility] [Outside]
[facility] and [facility]ub
[facility] [Outside]
Referral Note: will send nurse for PICC weekly dressing changes and deliver IV Antibx
Kyrie Asher MD [Family Provider, Family Practice]
Jose Alejandre MD [Active, Cardiac Surgery] - 03/23/25 3:00 pm
Referral Note: Please obtain 2-view chest X-Ray prior to appointment with Dr. Alejandre.
Prescriptions:
New
enoxaparin 80 mg/0.8 mL Syringe
80 mg SC Q12H 4 Days Qty: 6.4 0RF
Rx Instructions:
Continue until INR is greater than 2.0.
Continued
cholecalciferol (vitamin D3) 1,000 UNITS tablet
1,000 units PO QPM
acetaminophen 500 mg Tablet
1,000 mg PO DAILYPRN PRN (Reason: mild pain)
insulin aspart U-100 100 unit/mL (3 mL) Insulin Pen
1 sliding scale dose SC AC
insulin glargine [Lantus Solostar U-100 Insulin] 100 unit/mL (3 mL) Insulin Pen
21 unit SC QHS
trazodone 50 mg tablet
75 mg PO HS
metoprolol succinate 25 mg tablet extended release 24 hr
25 mg PO DAILY
atorvastatin 80 mg Tablet
40 mg PO QPM
therapeutic multivitamin Tablet
1 tab PO DAILY
coQ10 (ubiquinol) 100 mg Capsule
100 mg PO QPM
guaifenesin [Mucinex] 600 mg Tablet Extended Release 12hr
600 mg PO BIDPRN PRN (Reason: COUGH)
ceftriaxone 2 gram recon soln
2,000 mg IV DAILY@1200
Rx Instructions:
Per ID during last admission, to continue ceftriaxone until 03/30/25
oxycodone 5 mg tablet
5 mg PO TIDPRN PRN (Reason: mild pain)
warfarin 5 mg tablet
5 mg PO QPM Qty: 0 0RF
Rx Instructions:
Next dose (03/11/25) to be determined by Epic Director following INR check.
gabapentin 100 mg Capsule
100 mg PO TID 30 Days Qty: 90 0RF
docusate sodium 100 mg Capsule
100 mg PO BID 30 Days Qty: 60 0RF
Januvia 100 mg Tablet
100 mg PO DAILY 30 Days Qty: 30 0RF
amiodarone 200 mg Tablet
200 mg PO DAILY 30 Days Qty: 30 0RF
clopidogrel 75 mg Tablet
75 mg PO DAILY Qty: 30 0RF
tamsulosin 0.4 mg Capsule
0.4 mg PO DAILY 30 Days Qty: 30 0RF
ezetimibe [Zetia] 10 mg Tablet
10 mg PO QPM 30 Days Qty: 30 0RF
dapagliflozin propanediol 10 mg Tablet
10 mg PO DAILY 30 Days Qty: 30 0RF
bumetanide 2 mg Tablet
2 mg PO DAILY 30 Days Qty: 30 0RF
Discharge Orders:
Discharge Patient (As Directed); Ordered 03/10/25
Ordered By: Colette Watkins
Care Plan Goals
Care Plan Goals:
Problem: Readiness for enhanced knowledge related to diagnosis and treatment plan
Goal: Understand your diagnosis and treatment plan needs, including medications if applicable.
Instructions: Know your diagnosis, underlying causes and treatment plan options, including medications if applicable. Consult with your health care team to learn about your diagnosis and treatment plan, including medications if applicable.
Discharge Date and Time
Print Language: RWANDAN

Documented by User: Lali Maier PA-C 03/10/25 15:12
Discharge Summary
Discharge Data
Date of Admission: 02/26/25
Date of Discharge: 03/10/25
Discharge Plan
-
Patient Disposition: Home (Routine Discharge)
Discharge Diagnosis/Procedures: recurrent loculated R hydropneumothorax requiring lytic therapy and Pleurex catheter
Condition: Good
Diet: Low Cholesterol, Low Sodium and Diabetic, Carb Controlled
Activity: No strenuous activity
Driving Restrictions: Not until seen by your Dr
Bathing Restrictions: keep pleur-x catheter clean, dry and intact
Blood Work: INR to be checked by Visiting Nurse on 03/11/25. Please call results to Cardiology Office for Coumadin dosing.
Others Tests: Please obtain 2-view chest x-ray prior to your appointment with Dr. Alejandre.
- To obtain your Chest X-ray, please go to the registration desk through the main entrance of [facility].
- The order for your X-ray was placed by the Cardiac Surgery RADIOLOGY TRANSCRIPTIONISTCatia.
Other Services: VN, PT and OT
Wound Care: Keep Pleur-X catheter dressing clean, dry, intact. Change dressing daily, or as needed.
Activity Restrictions/Additional Instructions:
Wound Care Instructions Sacrum: clean with saline, skin prep periwound. Cut small piece of collagen dressing and apply a small amount of saline to collagen. Gently pack wound ('fluff not stuff) and cover with 2x2 and dry dressing change daily.
Bilateral Heel- No-sting barrier and adhesive foam. Change Q 3 days and PRN. Be sure to keep heels off-loaded as left heel has DTI. Please call WOC RN if left heel opens or worsens.
Follow up at wound care center call for an appointment.
Pleurx Catheter Instructions
- Drain catheter on 03/11/25 and record output
- Continue to drain catheter 2-3 times per week and record output amount and color
- If drainage is less that 100 mL, wait 3-days until draining again
- If further questions arise, please call the Cardiac Surgery Office
Referrals:
[facility] [Outside]
Referral Note: VN will handle pleurx cath and sacral decub
[facility] [Outside]
Referral Note: will send nurse for PICC weekly dressing changes and deliver IV Antibx
Kyrie Asher MD [Family Provider, Family Practice]
Jose Alejandre MD [Active, Cardiac Surgery] - 03/23/25 3:00 pm
Referral Note: Please obtain 2-view chest X-Ray prior to appointment with Dr. Alejandre.
Prescriptions:
New
enoxaparin 80 mg/0.8 mL Syringe
80 mg SC Q12H 4 Days Qty: 6.4 0RF
Rx Instructions:
Continue until INR is greater than 2.0.
Continued
cholecalciferol (vitamin D3) 1,000 UNITS tablet
1,000 units PO QPM
acetaminophen 500 mg Tablet
1,000 mg PO DAILYPRN PRN (Reason: mild pain)
insulin aspart U-100 100 unit/mL (3 mL) Insulin Pen
1 sliding scale dose SC AC
insulin glargine [Lantus Solostar U-100 Insulin] 100 unit/mL (3 mL) Insulin Pen
21 unit SC QHS
trazodone 50 mg tablet
75 mg PO HS
metoprolol succinate 25 mg tablet extended release 24 hr
25 mg PO DAILY
atorvastatin 80 mg Tablet
40 mg PO QPM
therapeutic multivitamin Tablet
1 tab PO DAILY
coQ10 (ubiquinol) 100 mg Capsule
100 mg PO QPM
guaifenesin [Mucinex] 600 mg Tablet Extended Release 12hr
600 mg PO BIDPRN PRN (Reason: COUGH)
ceftriaxone 2 gram recon soln
2,000 mg IV DAILY@1200
Rx Instructions:
Per ID during last admission, to continue ceftriaxone until 03/30/25
oxycodone 5 mg tablet
5 mg PO TIDPRN PRN (Reason: mild pain)
warfarin 5 mg tablet
5 mg PO QPM Qty: 0 0RF
Rx Instructions:
Next dose (03/11/25) to be determined by Epic Director following INR check.
gabapentin 100 mg Capsule
100 mg PO TID 30 Days Qty: 90 0RF
docusate sodium 100 mg Capsule
100 mg PO BID 30 Days Qty: 60 0RF
Januvia 100 mg Tablet
100 mg PO DAILY 30 Days Qty: 30 0RF
amiodarone 200 mg Tablet
200 mg PO DAILY 30 Days Qty: 30 0RF
clopidogrel 75 mg Tablet
75 mg PO DAILY Qty: 30 0RF
tamsulosin 0.4 mg Capsule
0.4 mg PO DAILY 30 Days Qty: 30 0RF
ezetimibe [Zetia] 10 mg Tablet
10 mg PO QPM 30 Days Qty: 30 0RF
dapagliflozin propanediol 10 mg Tablet
10 mg PO DAILY 30 Days Qty: 30 0RF
bumetanide 2 mg Tablet
2 mg PO DAILY 30 Days Qty: 30 0RF
Discharge Orders:
Discharge Patient (As Directed); Ordered 03/10/25
Ordered By: Colette Watkins
Care Plan Goals
Care Plan Goals:
Problem: Readiness for enhanced knowledge related to diagnosis and treatment plan
Goal: Understand your diagnosis and treatment plan needs, including medications if applicable.
Instructions: Know your diagnosis, underlying causes and treatment plan options, including medications if applicable. Consult with your health care team to learn about your diagnosis and treatment plan, including medications if applicable.
Discharge Date and Time
Print Language: RWANDAN
[2025-03-10 14:58] VITALS: BP 132/71
--- NOTE | 2025-03-10 15:12 | W.DCSUMMARY ---
Discharge Summary
Discharge Data
Date of Admission: 02/26/25
Date of Discharge: 03/10/25
-
Pending Results: No
Hospital Course
Primary care physician: Dr. Kyrie Asher
Inpatient consultants: Pulmonary, Psychiatry, Interventional Radiology
Procedures:
1. 02/26/25 Right chest tube placement by interventional radiology
2. 03/03/25 R tunneled Asept catheter placement by interventional radiology
Primary Diagnosis:
1. Recurrent complex pleural effusion/Hydropneumothorax
2. Robotic assisted right decortication and pleurodesis on 02/04/[address] Alejandre
Secondary Diagnoses:
1. Hypertension
2. Hyperlipidemia
3.Insulin-dependent diabetes with neuropathy
4. Obstructive sleep apnea
5. Coronary artery disease/aortic stenosis status post mechanical AVR and CABG in 2008
6. 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
7. Right lower extremity wound complications
8. Sacral decubitus ulcer
HPI: Patient is a 75-year-old male who is well-known to cardiac surgery service from Mechanical AVR ([employer] R[employer])/CABG 2008-chronic anticoagulation (Coumadin); PCI 2024 complicated by spiral dissection of the DE [place] SANTOS subsequent redo CABG 08/2024, and right
robotic assisted RML/RLL with chest wall decortication and pleurodesis on with Dr. Alejandre. Patient was discharged home on 02/11 with Heimlich valve and readmitted for empyema. Patient required an IR chest tube in addition to his
surgical Heimlich. Pleural fluid grew Klebsiella oxytoca and ceftriaxone 2 g IV daily x 6 weeks initiated with end date of 03/30/2025. Chest tubes were removed prior to discharge. Patient presented to [facility] ER on 02/26/25 with increased frequency of
coughing and shortness of breath.
Hospital course: Patient was remitted again on 828 for recurrent right pleural effusion with complex loculated hydropneumothorax. A right pleural chest tube was placed by IR on admission. Patient had multiple rounds of lytic therapies performed
by interventional radiology. Eventually tunneled Asept catheter was placed on 03/03/2025 with good result. Coumadin dosing was reduced during admission because of IV Rocephin, his INR goal is 2.0-2.5 for his mechanical aortic valve. He was seen by
wound care nursing as well as physical and Occupational Therapy throughout his stay. He was discharged to home with home therapies as well as [facility] for wound care and a septic catheter drainage management. INR at time of discharge was 1.7, patient
was given therapeutic Lovenox as a bridge to continue until his INR is greater than 2.0. Plan is to continue TIM catheter drainage 3 times per week with eventual decreasing in frequency as output decreases.
Home medication changes: Patient instructed to take 5 mg of Coumadin in the evening on 03/10 and then follow INR. New prescription for Lovenox 80 mg twice daily until INR greater than 2.0. New prescription for Tessalon Perles for cough as needed.
Discharge Plan
-
Patient Disposition: Home (Routine Discharge)
Discharge Diagnosis/Procedures: recurrent loculated R hydropneumothorax requiring lytic therapy and Pleurex catheter
Condition: Good
Diet: Low Cholesterol, Low Sodium and Diabetic, Carb Controlled
Activity: No strenuous activity
Driving Restrictions: Not until seen by your Dr
Bathing Restrictions: keep pleur-x catheter clean, dry and intact
Blood Work: INR to be checked by Visiting Nurse on 03/11/25. Please call results to Cardiology Office for Coumadin dosing.
Others Tests: Please obtain 2-view chest x-ray prior to your appointment with Dr. Alejandre.
- To obtain your Chest X-ray, please go to the registration desk through the main entrance of [facility].
- The order for your X-ray was placed by the Cardiac Surgery WATERPROOFING MACHINE OPERATORCatia BAL.
Other Services: VN, PT and OT
Wound Care: Keep Pleur-X catheter dressing clean, dry, intact. Change dressing daily, or as needed.
Activity Restrictions/Additional Instructions:
Wound Care Instructions Sacrum: clean with saline, skin prep periwound. Cut small piece of collagen dressing and apply a small amount of saline to collagen. Gently pack wound ('fluff not stuff) and cover with 2x2 and dry dressing change daily.
Bilateral Heel- No-sting barrier and adhesive foam. Change Q 3 days and PRN. Be sure to keep heels off-loaded as left heel has DTI. Please call WOC RN if left heel opens or worsens.
Follow up at wound care center call for an appointment.
Pleurx Catheter Instructions
- Drain catheter on 03/11/25 and record output
- Continue to drain catheter 2-3 times per week and record output amount and color
- If drainage is less that 100 mL, wait 3-days until draining again
- If further questions arise, please call the Cardiac Surgery Office
Referrals:
[facility] [Outside]
Referral Note: VN will handle pleurx cath and sacral decub
[facility] [Outside]
Referral Note: will send nurse for PICC weekly dressing changes and deliver IV Antibx
Kyrie Asher MD [Family Provider, Family Practice]
Jose Alejandre MD [Active, Cardiac Surgery] - 03/23/25 3:00 pm
Referral Note: Please obtain 2-view chest X-Ray prior to appointment with Dr. Alejandre.
Prescriptions:
New
enoxaparin 80 mg/0.8 mL Syringe
80 mg SC Q12H 4 Days Qty: 6.4 0RF
Rx Instructions:
Continue until INR is greater than 2.0.
benzonatate 100 mg Capsule
100 mg PO TIDPRN PRN (Reason: cough) Qty: 20 0RF
Continued
cholecalciferol (vitamin D3) 1,000 UNITS tablet
1,000 units PO QPM
acetaminophen 500 mg Tablet
1,000 mg PO DAILYPRN PRN (Reason: mild pain)
insulin aspart U-100 100 unit/mL (3 mL) Insulin Pen
1 sliding scale dose SC AC
insulin glargine [Lantus Solostar U-100 Insulin] 100 unit/mL (3 mL) Insulin Pen
21 unit SC QHS
trazodone 50 mg tablet
75 mg PO HS
metoprolol succinate 25 mg tablet extended release 24 hr
25 mg PO DAILY
atorvastatin 80 mg Tablet
40 mg PO QPM
therapeutic multivitamin Tablet
1 tab PO DAILY
coQ10 (ubiquinol) 100 mg Capsule
100 mg PO QPM
guaifenesin [Mucinex] 600 mg Tablet Extended Release 12hr
600 mg PO BIDPRN PRN (Reason: COUGH)
ceftriaxone 2 gram recon soln
2,000 mg IV DAILY@1200
Rx Instructions:
Per ID during last admission, to continue ceftriaxone until 03/30/25
oxycodone 5 mg tablet
5 mg PO TIDPRN PRN (Reason: mild pain)
warfarin 5 mg tablet
5 mg PO QPM Qty: 0 0RF
Rx Instructions:
Next dose (03/11/25) to be determined by Pin Chaser following INR check.
gabapentin 100 mg Capsule
100 mg PO TID 30 Days Qty: 90 0RF
docusate sodium 100 mg Capsule
100 mg PO BID 30 Days Qty: 60 0RF
Januvia 100 mg Tablet
100 mg PO DAILY 30 Days Qty: 30 0RF
amiodarone 200 mg Tablet
200 mg PO DAILY 30 Days Qty: 30 0RF
clopidogrel 75 mg Tablet
75 mg PO DAILY Qty: 30 0RF
tamsulosin 0.4 mg Capsule
0.4 mg PO DAILY 30 Days Qty: 30 0RF
ezetimibe [Zetia] 10 mg Tablet
10 mg PO QPM 30 Days Qty: 30 0RF
dapagliflozin propanediol 10 mg Tablet
10 mg PO DAILY 30 Days Qty: 30 0RF
bumetanide 2 mg Tablet
2 mg PO DAILY 30 Days Qty: 30 0RF
Discharge Orders:
Discharge Patient (As Directed); Ordered 03/10/25
Ordered By: Colette Watkins
Care Plan Goals
Care Plan Goals:
Problem: Readiness for enhanced knowledge related to diagnosis and treatment plan
Goal: Understand your diagnosis and treatment plan needs, including medications if applicable.
Instructions: Know your diagnosis, underlying causes and treatment plan options, including medications if applicable. Consult with your health care team to learn about your diagnosis and treatment plan, including medications if applicable.
Discharge Date and Time
Discharge Date/Time: 03/10/25 15:44
Print Language: HAITIAN
--- NOTE | 2025-03-10 15:33 | PTCARENOTE ---
D/C instructions given to patient and both verbalizes understanding. right upper arm PICC line remains intact. sacrum dsg. changed. bilat heels dsg. changed. telemetry removed. right Pleurx dsg. D/I. D/C instructions faxed to [facility] by unit
loan secretary. personal belongings packed and sent home with patient. D/C to home via accompanied by staff.
--- NOTE | 2025-03-10 15:59 | CM ---
pt dc'ed to home with tremayne at home infusion for IV Anitbx and Picc. also has dhvn for RN/PT/OT for pleurex cath management/teaching. pt/family agreeable to this plan
== END 2025-03-10 15:44 | disposition home health service (06) | DRG 186 ==
LOC: IVU 15:27
PROVIDERS: Nurse Practitioner; Physician Assistant; Physician Assistant Medical; Radiology Vascular & Interventional Radiology; ADMITTING PHYSICIAN Thoracic Surgery (Cardiothoracic Vascular Surgery); CONSULT PHYSICIAN Physical Medicine & Rehabilitation; EMERGENCY PHYSICIAN Emergency Medicine; FAMILY PHYSICIAN Family Medicine; OTHER PHYSICIAN Psychiatry & Neurology Psychiatry
PROC: 0W9930Z Drainage of Right Pleural Cavity with Drainage Device, Percutaneous Approach (ICD-10-PCS; 2025-02-26)
PROC: 3E0L3GC Introduction of Other Therapeutic Substance into Pleural Cavity, Percutaneous Approach (ICD-10-PCS; 2025-02-27)
PROC: 3E0L317 Introduction of Other Thrombolytic into Pleural Cavity, Percutaneous Approach (ICD-10-PCS; 2025-02-27)
PROC: 0B9N30Z Drainage of Right Pleura with Drainage Device, Percutaneous Approach (ICD-10-PCS; 2025-03-03)
DX: J94.8 Other specified pleural conditions (principal); J86.9 Pyothorax without fistula; J96.01 Acute respiratory failure with hypoxia; L89.154 Pressure ulcer of sacral region, stage 4; R04.2 Hemoptysis; I25.10 Atherosclerotic heart disease of native coronary artery without angina pectoris; E78.00 Pure hypercholesterolemia, unspecified; G47.33 Obstructive sleep apnea (adult) (pediatric); I50.9 Heart failure, unspecified; I11.0 Hypertensive heart disease with heart failure; K21.9 Gastro-esophageal reflux disease without esophagitis; N40.0 Benign prostatic hyperplasia without lower urinary tract symptoms; R13.13 Dysphagia, pharyngeal phase; I48.91 Unspecified atrial fibrillation; D64.9 Anemia, unspecified; B36.9 Superficial mycosis, unspecified; F32.A Depression, unspecified; I35.0 Nonrheumatic aortic (valve) stenosis; E11.42 Type 2 diabetes mellitus with diabetic polyneuropathy; J90 Pleural effusion, not elsewhere classified; E11.65 Type 2 diabetes mellitus with hyperglycemia; F41.0 Panic disorder [episodic paroxysmal anxiety]; B96.1 Klebsiella pneumoniae [K. pneumoniae] as the cause of diseases classified elsewhere; G47.00 Insomnia, unspecified; Z95.2 Presence of prosthetic heart valve; Z79.84 Long term (current) use of oral hypoglycemic drugs; Z79.02 Long term (current) use of antithrombotics/antiplatelets; Z88.1 Allergy status to other antibiotic agents; Z79.01 Long term (current) use of anticoagulants; Z88.8 Allergy status to other drugs, medicaments and biological substances; Z95.1 Presence of aortocoronary bypass graft; Z98.61 Coronary angioplasty status; Z91.81 History of falling; Z79.4 Long term (current) use of insulin
CPT/HCPCS: 32550; 32557; 32561; 71045; 71250; 80048; 80053; 82150; 82945; 82962; 83615; 83735; 83880; 83986; 84134; 84157; 84478; 85025; 85027; 85610; 85730; 87015; 87070; 87077; 87102; 87116; 87186; 87205; 87206; 89051; 92610; 93005; 96374; 97116; 97166; 97530; 97535; 99152; 99153; 99285; C1729; C1769; J2997

== ENCOUNTER → 2025-03-18 15:31 | Outpatient (REF) | payer OTHER, SELFPAY | LOC: RAD 15:31 | PROVIDERS: ATTENDING PHYSICIAN Thoracic Surgery (Cardiothoracic Vascular Surgery); FAMILY PHYSICIAN Family Medicine | DX: Z96.89 Presence of other specified functional implants (principal) | CPT/HCPCS: 71046 ==

== ENCOUNTER → 2025-03-20 13:36 | Outpatient (REF) | payer OTHER, SELFPAY | LOC: WOUND 13:36 | PROVIDERS: ATTENDING PHYSICIAN Surgery; FAMILY PHYSICIAN Family Medicine | DX: L89.154 Pressure ulcer of sacral region, stage 4 (principal); L89.620 Pressure ulcer of left heel, unstageable; E11.51 Type 2 diabetes mellitus with diabetic peripheral angiopathy without gangrene | CPT/HCPCS: 11042; 99213 ==

== ENCOUNTER → 2025-03-27 13:06 | Outpatient (REF) | payer OTHER, SELFPAY | LOC: WOUND 13:06 | PROVIDERS: ATTENDING PHYSICIAN Surgery; FAMILY PHYSICIAN Family Medicine | DX: L89.154 Pressure ulcer of sacral region, stage 4 (principal); L89.623 Pressure ulcer of left heel, stage 3; E11.9 Type 2 diabetes mellitus without complications; I73.9 Peripheral vascular disease, unspecified; E11.65 Type 2 diabetes mellitus with hyperglycemia; I10 Essential (primary) hypertension; Z95.2 Presence of prosthetic heart valve; Z95.1 Presence of aortocoronary bypass graft; Z79.01 Long term (current) use of anticoagulants | CPT/HCPCS: 11042 ==

== ENCOUNTER → 2025-04-10 13:25 | Outpatient (REF) | payer OTHER, SELFPAY | LOC: WOUND 13:25 | PROVIDERS: ATTENDING PHYSICIAN Surgery; FAMILY PHYSICIAN Family Medicine | DX: L89.154 Pressure ulcer of sacral region, stage 4 (principal); L89.623 Pressure ulcer of left heel, stage 3; E11.65 Type 2 diabetes mellitus with hyperglycemia; I73.9 Peripheral vascular disease, unspecified; I10 Essential (primary) hypertension; Z95.1 Presence of aortocoronary bypass graft; Z79.01 Long term (current) use of anticoagulants; Z95.2 Presence of prosthetic heart valve | CPT/HCPCS: 11042 ==

== ENCOUNTER → 2025-04-14 11:32 | Outpatient (REF) | payer OTHER, SELFPAY | LOC: HWRAD 11:32 | PROVIDERS: ATTENDING PHYSICIAN Internal Medicine Critical Care Medicine; FAMILY PHYSICIAN Family Medicine | DX: J98.19 Other pulmonary collapse (principal); J86.9 Pyothorax without fistula | CPT/HCPCS: 71250 ==

== ENCOUNTER → 2025-04-21 08:58 | Outpatient (REF) | payer OTHER, SELFPAY ==
[2025-04-21 12:52] LABS: Hematocrit 34.6 % (39.0-52.0); Hemoglobin 10.1 g/dL (13.0-18.0); Mean Corp Hgb Conc. 29.2 g/dL (33.0-37.0); Mean Corpuscular Volume 81.2 fL (80.0-94.0); Nucleated Red Blood Cells % 0 % (-); Platelet Count 324 10^3/uL (130-400); Red Cell Dist. Width 17.4 % (11.5-14.5)
[2025-04-21 13:18] LABS: ALT (SGPT) 31 U/L (0-50); AST (SGOT) 51 U/L (17-59); Albumin 3.4 g/dl (3.5-5.0); Alkaline Phosphatase 217 U/L (38-126); Blood Urea Nitrogen 41 mg/dl (9-20); Calcium 8.7 mg/dl (8.4-10.2); Carbon Dioxide 27 mmol/L (22-30); Chloride 103 mmol/L (98-107); Glucose 144 mg/dl (70-99); HDL Cholesterol 42 mg/dl; LDL Cholesterol, Calculated 51 mg/dl; Potassium 3.8 mmol/L (3.5-5.1); Sodium 134 mmol/L (135-145); Total Protein 7.8 g/dl (6.3-8.2); Very Low Density Lipoprotein 20 mg/dl (0-30); eGFR 57.65
[2025-04-21 13:36] LABS: TSH 4.03 uIU/ml (0.47-4.68)
[2025-04-21 15:01] LABS: Glycohemoglobin (HgbA1c) 6.8 % (4.0-5.6)
== END ==
LOC: HWLAB 08:58
PROVIDERS: ATTENDING PHYSICIAN Family Medicine
DX: Z79.4 Long term (current) use of insulin (principal); E11.65 Type 2 diabetes mellitus with hyperglycemia; I50.22 Chronic systolic (congestive) heart failure; Z00.00 Encounter for general adult medical examination without abnormal findings; E78.2 Mixed hyperlipidemia
CPT/HCPCS: 36415; 80053; 80061; 83036; 84443; 85025

== ENCOUNTER → 2025-04-22 13:39 | Outpatient (REF) | payer OTHER, SELFPAY ==
[2025-04-22 14:00] VITALS: BP 144/76; BP_SYST 59
[2025-04-22 14:10] LABS: INR 1.30; PT 16.7 Sec (11.4-14.6)
[2025-04-22 15:05] VITALS: BP 129/61; BP_SYST 61
[2025-04-22 15:28] VITALS: BP 129/61
== END ==
LOC: RADI 13:39
PROVIDERS: ATTENDING PHYSICIAN Nurse Practitioner Family; FAMILY PHYSICIAN Family Medicine; OTHER PHYSICIAN Physician Assistant
DX: Z46.82 Encounter for fitting and adjustment of non-vascular catheter (principal); J94.8 Other specified pleural conditions
CPT/HCPCS: 32552; 36415; 85610

== ENCOUNTER → 2025-05-01 13:26 | Outpatient (REF) | payer OTHER, SELFPAY | LOC: WOUND 13:26 | PROVIDERS: ATTENDING PHYSICIAN Surgery | DX: L89.154 Pressure ulcer of sacral region, stage 4 (principal); L89.623 Pressure ulcer of left heel, stage 3; Z79.01 Long term (current) use of anticoagulants; I10 Essential (primary) hypertension; I73.9 Peripheral vascular disease, unspecified; E11.65 Type 2 diabetes mellitus with hyperglycemia; Z95.1 Presence of aortocoronary bypass graft; Z95.2 Presence of prosthetic heart valve | CPT/HCPCS: 11042 ==

== ENCOUNTER 2025-05-15 11:25 | Outpatient (REF) | payer OTHER, SELFPAY | END 2025-05-15 23:59 | disposition home or self-care (01) | LOC: WOUND 11:25 | PROVIDERS: ATTENDING PHYSICIAN Surgery; FAMILY PHYSICIAN Family Medicine | DX: L89.154 Pressure ulcer of sacral region, stage 4 (principal); L89.623 Pressure ulcer of left heel, stage 3; I73.9 Peripheral vascular disease, unspecified; E11.65 Type 2 diabetes mellitus with hyperglycemia; I10 Essential (primary) hypertension | CPT/HCPCS: 11042 ==

== ENCOUNTER 2025-05-24 23:25 | Inpatient (IN) | payer OTHER, SELFPAY ==
[2025-05-24 20:08] VITALS: BP 145/75
[2025-05-24 20:18] VITALS: BP 140/75
--- NOTE | 2025-05-24 20:32 | ED.GENMED ---
History of Present Illness
General
Chief Complaint: Breathing Problem
Source: patient, records and spouse
Time Seen by Provider: 05/24/25 20:18
History of Present Illness
History of Present Illness:
This patient is a 75-year-old male with a complicated prior medical history who presents emergency department with complaints of a cough that started on Sunday associated with bilateral earaches, sinus congestion, and feeling like he cannot clear
his mucus. He denies hemoptysis, fever, chills, sore throat, trouble swallowing. He says that his chest is sore from coughing so much. Patient is on warfarin and states that his INR most recently was 3.9 on Sunday. Patient was started on
prednisone by his PCP a few days ago, he is taking 20 mg daily without relief of symptoms. Patient was hospitalized JanuaryMarch 2025, states he has been 'trying to get back' ever since then, is not oxygen dependent, states he can walk from the
bathroom to other rooms in his home without dyspnea but does state that chronically his right lung will not fully expand.
Past History
Past History
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
ED Past Surgical History: Cardiac (CABG+Mechanical aortic valve replacement 2008) and Orthopedic
Social History
Tobacco: Non-smoker
Alcohol: None
Drug: None
Personal:
Living: with family
Employment: Employed
Family History
Family History: CAD
Phy Exam
Physical Exam
Physical Exam:
GENERAL: Alert , in no apparent distress, persistent cough
EYE: pupils equal and reactive
NECK: Supple, no significant adenopathy.
ENT: o/p clr, mmm.
CARDIAC: Regular rate and rhythm .
LUNGS: Equal breath sounds bilaterally, no acute respiratory distress, persistent nonproductive cough, slight wheezing with occasional rhonchi
ABDOMEN: Soft, without focal tenderness, no r/g, no cvat
NEUROLOGICAL: Alert and oriented, no focal neuro deficits
SKIN: Warm and dry, skin intact.
MUSCULOSKELETAL: Trace to 1+ bilateral lower extremity edema, well perfused.
PSYCH: Normal and appropriate interaction.
Scores
Heart Failure Risk
Heart Failure Risk Score: Not Applicable
Course
Orders/Labs/Results
Orders:
Orders
05/24/25 20:31
Electrocardiogram (*1) Urgent
Reason for Study: Other
Other Reason for Exam: sepsis
Cardiac Monitoring- Treatment ONCE
EKG- Treatment ONCE
CR Chest - 2 Views Urgent
Comment:
Reason For Exam: cough
Pulse Ox/cont/shift [RESP] Urgent
Quantity: 1
05/24/25 20:35
Ipratropium/Albuterol Sulfate [Duoneb] 3 ml INH R NOW STA
05/24/25 20:36
COVID-19 Antigen Urgent
Source: Nasal Swab
Complete Blood Count/With Diff Urgent
Comprehensive Metabolic Panel Urgent
Lactic Acid Q4H
Comment: CANCEL 2nd LACTIC ACID IF 1st LACTIC ACID IS LESS THAN 2
NT-proBNP Urgent
PTT Urgent
Prothrombin Time Urgent
Troponin I Urgent
Blood Culture Q30M
YE Source: Blood/Venous
Specimen Description:
Blood Culture Q30M
YE Source: Blood/Venous
Specimen Description:
Influenza A+B Rapid Molecular Urgent
YE Source: Nasal Swab
Specimen Description:
05/24/25 21:36
CefTRIAXone [Rocephin] 1,000 mg IV NOW STA
05/24/25 21:55
Doxycycline Hyclate [Vibramycin] 100 mg 0.9% Sodium Chloride 250 ml [Nss] 250 ml IV NOW
05/24/25 23:08
Admit/Transfer Patient As Directed
Co-Sign Provider:
Level of Care: Inpatient admission
Assign to:: Medical/Surgical
Physician / Group: Mariangel
Diagnosis: Acute bronchitis
Reason for Hospitalization: shortness of breath
Expected length of stay greater than two midnights?: Yes
ELOS- Estimated Length of Stay in days: 2
I certify the patient meets the requirements for IP care: Yes
05/24/25 23:09
PRN Pain Medication Management As Directed
May give lesser potent ordered pain med per pt: Yes
preference::
Protocol:: Medication orders for pain may be administered in a
manner that supports deferring to patient preference
when the pt is:
- Requesting an ordered lesser potent pain medication.
Least to most potent pain medications are defined
as: acetaminophen < NSAID < tramadol < opioids
(morphine, oxycodone, hydromorphone).
- Requesting a lesser dose of the same medication IF
ORDERED.
- Requesting a less intrusive route of administration
if both routes are prescribed by the provider (PO <
IV).
05/24/25 23:16
Code Status As Directed
Resuscitation Status: Full Code
05/24/25 23:17
Furosemide [Lasix] 20 mg IV NOW STA
05/25/25 01:04
Acetaminophen [Tylenol] 650 mg PO Q4HPRN PRN
Bisacodyl [Dulcolax] 10 mg RECTAL [id number] PRN
Dextrose 50%-Water [Dextrose 50% Syringe] 12.5 grams IV [id number] PRN
Docusate W/Senna [Senokot-S] 1 tablet PO BIDPRN PRN
Glucagon [GlucaGen] 1 mg IM PRN PRN
Guaifenesin/Dextromethorphan [Robitussin Dm] 10 ml PO Q4HPRN PRN
Ipratropium/Albuterol Sulfate [Duoneb] 3 ml INH R Q4HPRN PRN
Mag Hydrox/Al Hydrox/Simeth [Maalox] 30 ml PO Q6HPRN PRN
Oxycodone [Roxicodone] 5 mg PO Q4HPRN PRN
Polyethylene Glycol Powder [Miralax] 17 grams PO DAILYPRN PRN
05/25/25 01:04
Consult Notification Routine
Specialty to Notify: Pulmonary
Date consulting provider notified: 05/25/25
Time consulting provider notified: 07:33
Notified:: Service
PULMONARY CONSULT Routine
Consulting Provider: Yvette Correa
Was physician already notified: No
Reason for consult: persistent hydropneumothorax
VTE Contraindication Routine
VTE Mechanical Device Contraindication: Medical Contraindication
Pharmocologic Contraindication: Medical Contraindication
Activity As Directed
Activity Level: With Assistance
Bedside Glucose Monitoring As Directed
Frequency: AC&HS
Additional Instructions:: Change to q6h if pt on TPN, tube feeding or not eating
Vital Signs As Directed
Frequency: Per unit guidelines
05/25/25 Breakfast
1800 calorie (15 carb) Diabetic
At Your Request: Full Participation
Fluid Restriction: 1440 mL/day (48 oz)
05/25/25 06:24
Basic Metabolic Panel IN AM
05/25/25 06:25
Complete Blood Count/No Diff IN AM
Glycohemoglobin (HgbA1c) IN AM
05/25/25 07:30
Insulin Aspart Corrective Low [Novolog Flexpen-Low Resistance] See Protocol SC AC
05/25/25 08:00
Amiodarone [Pacerone] 200 mg PO DAILY
Bumetanide [Bumex] 2 mg PO DAILY
Clopidogrel Bisulfate [Plavix] 75 mg PO DAILY
Dapagliflozin [Farxiga] 10 mg PO DAILY
Doxycycline [Vibramycin] 100 mg PO Q12
Gabapentin [Neurontin] 100 mg PO TID
Metoprolol Xl [Toprol Xl] 25 mg PO DAILY
Sitagliptin Phosphate [Januvia] 100 mg PO DAILY
Tamsulosin [Flomax] 0.4 mg PO DAILY
05/25/25 18:00
Atorvastatin [Lipitor] 40 mg PO QPM
Ezetimibe [Zetia] 10 mg PO QPM
Warfarin [Coumadin] 2.5 mg PO SuMoWeThSa@1800
05/25/25 22:00
CefTRIAXone [Rocephin] 1,000 mg IV HS
Insulin Glargine Lantus [Lantus] 20 units Subcutaneous Insulin Syringe [Syringe-Insulin] 0 unit SC HS
Trazodone [Desyrel] 75 mg PO HS
05/26/25 18:00
Warfarin [Coumadin] 5 mg PO TuFr@1800
Abnormal Lab Results
05/24/25
20:36
RBC 4.35 L 10^6/uL
(4.70-6.10)
Hgb 10.4 L g/dL
(13.0-18.0)
Hct 35.3 L %
(39.0-52.0)
MCH 23.9 L pg
(27.0-31.0)
MCHC 29.5 L g/dL
(33.0-37.0)
RDW 19.0 H %
(11.5-14.5)
Abs Immat Gran (auto) 0.1 H 10^3/uL
(0-0.05)
Absolute Neuts (auto) 9.1 H 10^3/uL
(1.4-6.5)
Absolute Lymphs (auto) 0.5 L 10^3/uL
(1.2-3.4)
Absolute Monos (auto) 0.7 H 10^3/uL
(0.1-0.6)
Immature Gran % 0.6 H %
(0-0.5)
Neutrophils % 88.1 H %
(42.2-75.2)
Lymphocytes % 4.8 L %
(20.5-51.1)
PT 31.0 H Sec
(11.4-14.6)
APTT 36.6 H Sec
(23.4-35.0)
Sodium 129 L mmol/L
(135-145)
Chloride 96 L mmol/L
(98-107)
BUN 40 H mg/dl
(9-20)
Glucose 208 H mg/dl
(70-99)
Alkaline Phosphatase 188 H U/L
(38-126)
05/24/25 20:36
05/24/25 20:36
Vital Signs
Initial and Last Documented VS:
Initial Vital Signs
Temp Pulse Resp BP Pulse Ox
97.7 F 64 18 145/75 95
05/24/25 20:08 05/24/25 20:08 05/24/25 20:08 05/24/25 20:08 05/24/25 20:08
Last Documented Vital Signs
Temp Pulse Resp BP Pulse Ox
97.9 F 57 16 107/53 98
05/25/25 07:11 05/25/25 08:26 05/25/25 07:11 05/25/25 08:26 05/25/25 07:11
*Pulse Oximetry
SaO2: 97
Oxygen Mode of Delivery: Room air
Patient hypoxic: no
*Critical Care Note
Total Time (30-74mins, 75-104mins- exclusive of procedures): Not Applicable
Update Note
Update Note:
Patient presents to the Emergency Department with ___cough_and sob
Number and Complexity of Problems Addressed at the Encounter
� Chronic conditions affecting care:
� Acute Exacerbation and/or Progression of Chronic Illness:
� Differential Diagnosis includes:but not limited to ptx, pna, pleural effusion, bronchitis, etc etc.
Amount and/or Complexity of Data to be Reviewed and Analyzed
� I performed an independent evaluation of and my interpretation is:
EKG:
CT:
Xrays:cxr Small loculated right basilar hydropneumothorax. Decreased size of the pneumothorax but increased pleural fluid compared to the most recent chest CT and chest radiographs. Findings again most in keeping with a trapped
lung.
No new pulmonary consolidation. Stable cardiomediastinal silhouette. Sternotomy wires, mediastinal clips, and an aortic valve prosthesis are in place. Chronic degenerative changes of the spine.
Laboratory Studies:
Other:
� Review of other/old records reveals: Patient was hospitalized JanuaryMarch 2025 noted to have empyema, required pleurodesis, Heimlich placement, etc.
� Clinical information was obtained by an independent historian:
� Prescriptions/Medications Considered but not given:
� Further testing considered but not performed:
Risk of Complications and/or Morbidity or Mortality of Patient Management
� Social determinants of health affecting care:
� Discussion with other providers (PCP, Hospitalists, Consultants, etc):
� Escalation of care including admission/observation vs risk of discharge considered:
ED Attending Note
-
Portions of this chart may have been created with voice recognition software.� Occasional wrong word or��sound alike� substitutions may have occurred due to the inherent limitations of voice recognition software.
Discharge Plan
Departure
Patient Disposition: Admit
Date of Disposition: 05/24/25
Time of Disposition: 21:38
Admit to: Telemetry
Presentation/result/management discussed w/ accepting MD/DO: Hospitalist
Condition: Fair
Discharge Problem:
Dyspnea
Interventions
Interventions:
*Risk Screen - Suicide Last Done: 05/24/25 20:11
*General Assessment Last Done: 05/24/25 20:32
*Neglect/Abuse Screening Last Done: 05/24/25 20:11
*ED- Fall Risk Assessment Last Done: 05/24/25 20:32
*ED COVID-19 Vaccine History Last Done: 05/24/25 20:32
*ED Influenza Vaccine History Last Done: 05/24/25 20:32
*Nursing Disposition Last Done: 05/25/25 00:56
ED- Cardiac Assessment Last Done: 05/24/25 20:24
ED- Pulmonary Assessment Last Done: 05/24/25 20:24
Discharge Date and Time
Discharge Date/Time: 05/25/25 00:57
[2025-05-24] MEDS: DUONEB 3 ML INH (21:09)
[2025-05-24 21:13] LABS: Hematocrit 35.3 % (39.0-52.0); Hemoglobin 10.4 g/dL (13.0-18.0); Mean Corp Hgb Conc. 29.5 g/dL (33.0-37.0); Mean Corpuscular Volume 81.1 fL (80.0-94.0); Nucleated Red Blood Cells % 0 % (-); Platelet Count 248 10^3/uL (130-400); Red Cell Dist. Width 19.0 % (11.5-14.5)
[2025-05-24 21:15] LABS: COVID-19 Antigen Negative (Negative)
[2025-05-24 21:22] LABS: ALT (SGPT) 31 U/L (0-50); AST (SGOT) 43 U/L (17-59); Albumin 3.5 g/dl (3.5-5.0); Alkaline Phosphatase 188 U/L (38-126); Blood Urea Nitrogen 40 mg/dl (9-20); Calcium 8.7 mg/dl (8.4-10.2); Carbon Dioxide 27 mmol/L (22-30); Chloride 96 mmol/L (98-107); Glucose 208 mg/dl (70-99); Potassium 3.6 mmol/L (3.5-5.1); Sodium 129 mmol/L (135-145); Total Protein 7.7 g/dl (6.3-8.2); eGFR > 60.00
[2025-05-24 21:24] LABS: INR 3.00; PT 31.0 Sec (11.4-14.6)
[2025-05-24 21:25] LABS: APTT 36.6 Sec (23.4-35.0)
[2025-05-24 21:26] LABS: Troponin I 0.027 ng/ml
[2025-05-24] MEDS: ROCEPHIN 1000 MG IV (21:58)
[2025-05-24] MEDS: VIBRAMYCIN 260 MG IV (22:11)
--- NOTE | 2025-05-24 22:52 | HPS.HSE ---
Family Physician
-
Family Physician: Kyrie Asher
Chief Complaint
-
Coughing
History of Present Illness
This is a 75-year-old who has past medical history significant for insulin-dependent diabetes, chronic diastolic heart failure, PAT not on CPAP, CAD status post CABG 2008, mechanical aortic valve replacement on chronic anticoagulation with Coumadin,
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
by interventional radiology. Readmitted for pneumonia and pneumothorax status post catheter placement now removed at the end of March presents to the emergency department with persistent cough for the last few days.
Patient reports upper respiratory symptoms that started a few days ago. He reports some sinus congestion. He reports cough that is productive of white to yellow sputum. Was seen by PMD 2 days ago and given steroids. Despite this the patient
continued to have cough. He reports that he has congestion in his chest and is unable to clearly congestion with coughing. He has tried drinking hot tea without any improvement. He tried decongestants without any improvement. He has not had any
fevers or chills. He denies dyspnea exertion. He denies any exertional chest pain. He denies pleuritic chest pain. He has no palpitations. He denies feeling dizzy or lightheaded.
On arrival in the emergency department he was satting 98% on room air. Temperature was 91.7. Blood pressure was 140/75 with a pulse rate of 65. He has ECG with a sinus bradycardia rate of 56. Troponin was negative. BNP is chronically elevated
at 3600. His INR was therapeutic at 3.0. CBC shows a white count of 10 point hemoglobin 10.1 and platelet count of 248. His electrolytes notable for a sodium of 129 but otherwise unremarkable with chronic elevation in BUN to 40 and a baseline
creatinine of 1.0. Flu and COVID were negative. Chest x-ray shows small loculated right basilar hydropneumothorax, decreased size of the pneumothorax compared to prior but increased pleural effusion compared to most recent CT.
Medical History
Past Medical History
Past Medical History: Reports Other
Additional Past Medical History:
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
Past Surgical History: Reports Other
Additional Past Surgical History:
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
wall due to thick pleura rind)
Social History
Tobacco: Non-smoker
Alcohol: None
Drug: None
Personal:
Living: With Family
Employment: Retired
Family History
Family History: Not pertinent
Allergies / Home Medications
Allergies reflects when Allergies were last updated in [facility].
Home Medications with original date entered in [facility]
Allergy/Medication List:
Allergies
Allergy/AdvReac Type Severity Reaction Status Date / Time
levofloxacin (From Levaquin) Allergy muscle pain Verified 05/24/25 20:12
rosuvastatin calcium (From Allergy leg pain Verified 05/24/25 20:12
Crestor)
simvastatin (From Zocor) Allergy MYALGIAS/leg Verified 05/24/25 20:12
cramping
Home Medications
cholecalciferol (vitamin D3) 25 mcg (1,000 unit) tablet 1,000 units PO QPM Supplement 08/26/18
amiodarone 200 mg tablet 200 mg PO DAILY Arrhythmia 30 days #30 tabs 09/15/24
bumetanide 2 mg tablet 2 mg PO DAILY Fluid retention/Swelling 30 days #30 tabs 09/15/24
clopidogrel 75 mg tablet 75 mg PO DAILY Blood clot prevention/tx/Afib #30 tabs 09/15/24
dapagliflozin propanediol 10 mg tablet 10 mg PO DAILY Heart disease/condition 30 days #30 tabs 09/15/24
docusate sodium 100 mg capsule 100 mg PO BID Constipation 30 days #60 caps 09/15/24
ezetimibe 10 mg tablet (Zetia) 10 mg PO QPM High cholesterol 30 days #30 tabs 09/15/24
sitagliptin phosphate 100 mg tablet (Januvia) 100 mg PO DAILY Diabetes 30 days #30 tabs 09/15/24
tamsulosin 0.4 mg capsule 0.4 mg PO DAILY Bladder/BPH 30 days #30 caps 09/15/24
acetaminophen 500 mg tablet 1,000 mg PO DAILYPRN PRN mild pain 11/16/24
insulin aspart U-100 100 unit/mL (3 mL) subcutaneous pen 1 sliding scale dose SC AC Diabetes 11/16/24
insulin glargine 100 unit/mL (3 mL) subcutaneous pen (Lantus Solostar U-100 Insulin) 21 unit SC QHS Diabetes 11/16/24
metoprolol succinate 25 mg tablet,extended release 24 hr 25 mg PO DAILY blood pressure 11/16/24
trazodone 50 mg tablet 75 mg PO HS insomnia 11/16/24
atorvastatin 80 mg tablet 40 mg PO QPM High Cholesterol 01/21/25
therapeutic multivitamin 1 tab PO DAILY Supplement 02/15/25
coQ10 (ubiquinol) 100 mg capsule 100 mg PO QPM Supplement 02/26/25
guaifenesin 600 mg tablet, extended release 12 hr (Mucinex) 600 mg PO BIDPRN PRN COUGH 02/26/25
oxycodone 5 mg tablet 5 mg PO TIDPRN PRN mild pain 02/26/25
benzonatate 100 mg capsule 100 mg PO TIDPRN PRN cough #20 caps 03/10/25
gabapentin 100 mg capsule 100 mg PO TID Post-operative Neuropathic Pain 30 days #90 caps 03/10/25
warfarin 5 mg tablet 5 mg PO QPM Blood Clot Prevention/Tx #0 tabs 03/10/25
Review of Systems
-
History Source: Patient and Family
Constitutional: Reports No Symptoms
EENT: Reports No Symptoms
Respiratory: Reports Cough
Cardiac: Reports No Symptoms
Abdomen/GI: Reports No Symptoms
: Reports No Symptoms
Musculoskeletal: Reports No Symptoms
Skin: Reports No Symptoms
Neurological: Reports No Symptoms
Endocrine: Reports No Symptoms
Hematologic/Lymphatic: Reports No Symptoms
Psych: Reports No Symptoms
Physical Exam
Vital Signs
Vital Signs
Temp Pulse Resp BP Pulse Ox
97.7 F 65 28 140/75 98
05/24/25 20:08 05/24/25 22:15 05/24/25 22:15 05/24/25 20:18 05/24/25 22:15
Physical Exam
General: Well Developed, Well Nourished and Pain (with coughing)
HEENT: NormoCephalic, Anicteric and PERRLA
Respiratory: Non Labored Respirations; No Wheezes or Crackles
Cardiac: S1/S2, Bradycardia and Other (prosthetic aortic click)
Breast: Deferred by me
GI: Soft, Non Tender, Non Distended and Normal Bowel Sounds
Rectal: Deferred by Provider
Genito-urinary: Deferred by me
Musculoskeletal: No Clubbing, No Cyanosis, Edema, Left Lower Extremity (Trace ankle) and Edema, Right Lower Extremity (Trace ankle)
Skin: Warm and Dry
Neuro: AO x 3 and Nonfocal/grossly intact
Hematologic/Lymphatic: No Lymphadenopathy
Psych: Calm
Laboratory Results
-
05/24/25 20:36
05/24/25 20:36
Laboratory Results
PT 31.0 Sec (11.4-14.6) H 05/24/25 20:36
INR 3.00 05/24/25 20:36
APTT 36.6 Sec (23.4-35.0) H 05/24/25 20:36
Lactic Acid 1.9 mmol/L (0.7-2.0) 05/24/25 20:36
Total Bilirubin 0.7 mg/dl (0.2-1.3) 05/24/25 20:36
AST 43 U/L (17-59) 05/24/25 20:36
ALT 31 U/L (0-50) 05/24/25 20:36
Alkaline Phosphatase 188 U/L (38-126) H 05/24/25 20:36
Troponin I 0.027 ng/ml 05/24/25 20:36
Data Reviewed
-
Diagnostic Radiology: Image Personally Visualized and interpreted and Report Reviewed by me
Medical Tests (Nuc Med, Echo, EKG etc): Image Personally Visualized and interpreted
Lab Data: Labs Reviewed by me
Old Records: Reviewed
Impression/Plan
-
IMPRESSION:
75-year-old with extensive cardiac and pulmonary history most notable around mechanical aortic valve replacement, CABG, right-sided hydropneumothorax with empyema status post chest tube placement and now discontinued who presents to the emergency
department with persistent cough despite initial trial of treatment for URI of antibiotics for the last 2 days. Patient is afebrile, hemodynamically stable and does not require supplemental oxygen. His chest x-ray shows of some persistence of a
small loculated right basilar hydropneumothorax but no acute infiltrate. He has trace bilateral pedal edema and his BNP is elevated similar to prior. Sodium is also reduced. Troponin is negative. ECG is nonischemic.
PLAN:
Acute bronchitis -suspect acute bronchitis as well as tracheobronchitis. Patient is bringing up only small amounts of sputum and is clear. He is afebrile and without significant leukocytosis. He is not hypoxic. No infiltrates on x-ray.
- Admit to MedSurg
- Agree with trial of antibiotics, ceftriaxone doxycycline started
� Check procalcitonin in a.m.
� Supportive measures with nebs, antitussives and antiemetics
� Supplemental oxygen as needed
CHF -patient is euvolemic appearing with trace pedal edema. BNP is chronically elevated at 3600. There is no pulmonary edema. Known small hydropneumothorax.
- lasix 40mg iv now
� continue bumex 2mg daily
- daily weights and i/os
- fluid restriction to 1200 ml daily
- GDMT with metoprolol succ, farxiga
Hydropneumothorax - Appears stable with slight increase
- pulmonary consult
Mechanical aortic valve replacement
- continue warfarin per home regimen of 2.5 and 5, INR currently therapeutic with stated goal 2.5 - 3
Type 2 diabetes
- lantus 20 hs (20 at home)
- sliding scale insulin
- continue januvia/farxiga
AFIB - Paroxysmal AFIB
- continue anticoag as above
- continue amio
- continue metoprolol
DVT PPX - on coumadin
Code status - Full Code
[2025-05-24 23:28] VITALS: BP 125/74
[2025-05-24] MEDS: LASIX 20 MG IV (23:28)
[2025-05-25] VITALS: BP 139/82
[2025-05-25 01:04] VITALS: BMI 27.7
[2025-05-25 01:18] VITALS: BP 131/87; BMI 27.7
--- NOTE | 2025-05-25 01:18 | PTCARENOTE ---
Pt arrived onto floor via stretcher. Pt AAOx3 and able to walk into room with minimal assistance. Pt with no complaints of pain at this time. Pt oriented to room and call xiao; will continue to monitor
[2025-05-25 01:23] VITALS: BMI 27.7
[2025-05-25 06:00] VITALS: BMI 27.7
[2025-05-25 06:36] LABS: Hematocrit 31.0 % (39.0-52.0); Hemoglobin 9.7 g/dL (13.0-18.0); Mean Corp Hgb Conc. 31.3 g/dL (33.0-37.0); Mean Corpuscular Volume 78.7 fL (80.0-94.0); Platelet Count 219 10^3/uL (130-400); Red Cell Dist. Width 18.6 % (11.5-14.5)
[2025-05-25 07:03] LABS: Blood Urea Nitrogen 37 mg/dl (9-20); Calcium 8.3 mg/dl (8.4-10.2); Carbon Dioxide 29 mmol/L (22-30); Chloride 101 mmol/L (98-107); Estimated Creatinine Clearance 69 ml/min; Glucose 133 mg/dl (70-99); Potassium 3.4 mmol/L (3.5-5.1); Sodium 135 mmol/L (135-145); eGFR > 60.00
[2025-05-25 07:11] VITALS: BP 107/53
[2025-05-25 08:09] LABS: Iron 35 ug/dl (49-181); Magnesium 1.9 mg/dl (1.6-2.3)
[2025-05-25 08:18] LABS: Total Iron Binding Capacity 321 ug/dl (261-462)
[2025-05-25 08:22] LABS: Glucose - Point of Care 129 mg/dl (70-99)
[2025-05-25] MEDS: NOVOLOG FLEXPEN-LOW RESISTANCE SC (08:24)
[2025-05-25] MEDS: KCL 40 MEQ PO (08:25)
[2025-05-25] MEDS: BUMEX 2 MG PO (08:26)
[2025-05-25] MEDS: FARXIGA 10 MG PO (08:27)
[2025-05-25] MEDS: NEURONTIN 100 MG PO ×3 (08:27→21:53)
[2025-05-25] MEDS: JANUVIA 100 MG PO (08:27)
[2025-05-25] MEDS: VIBRAMYCIN 100 MG PO ×2 (08:27→20:45)
[2025-05-25] MEDS: PACERONE 200 MG PO (08:28)
[2025-05-25] MEDS: TOPROL XL 25 MG PO (08:28)
[2025-05-25] MEDS: FLOMAX 0.4 MG PO (08:28)
[2025-05-25] MEDS: PLAVIX 75 MG PO (08:29)
[2025-05-25] MEDS: SENOKOT-S 1 TABLET PO (08:33)
[2025-05-25 09:07] LABS: Ferritin 48.2 ng/ml (17.9-464.0)
[2025-05-25 09:46] LABS: Glycohemoglobin (HgbA1c) 6.9 % (4.0-5.9)
[2025-05-25 10:07] LABS: Procalcitonin < 0.05 ng/ml (0.0-0.25)
[2025-05-25 10:28] VITALS: BMI 27.7
--- NOTE | 2025-05-25 10:28 | CON.PUL ---
Consultation
Consultation Request
Date/Time Consultation Requested: 05/25/25
Date/Time Consultation Performed: 05/25/25
Performing Provider: Yuli
Reason for Consultation: Cough
Medical History
-
History of Present Illness:
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
subsequent redo CABG, pneumonia/pneumothorax s/p right middle lobe and right lower lobe repair with chest wall decortication and pleurodesis in January, presenting to with persistent cough for the last few days with associated chest congestion.
He denies any shortness of breath, wheezing or chest tightness. He does feel some relief since admission. He satting above 90% on room air, no acute distress. Chest imaging obtained demonstrating unchanged chronic findings on the right.
Past Medical History
Past Medical History: Other (see list below)
Social History
Tobacco: Non-smoker
Alcohol: None
Drug: None
Allergies / Home Medications
Allergies
Allergy/AdvReac Type Severity Reaction Status Date / Time
levofloxacin (From Levaquin) Allergy muscle pain Verified 05/24/25 20:12
rosuvastatin calcium (From Allergy leg pain Verified 05/24/25 20:12
Crestor)
simvastatin (From Zocor) Allergy MYALGIAS/leg Verified 05/24/25 20:12
cramping
Home Medications
�Medication �Instructions �Recorded �Confirmed �Last Taken �Type
cholecalciferol (vitamin D3) 25 1,000 units PO QPM Supplement 08/26/18 04/22/25 02/25/25 History
mcg (1,000 unit) tablet
amiodarone 200 mg tablet 200 mg PO DAILY Arrhythmia 30 days 09/15/24 04/22/25 02/25/25 Rx
#30 tabs
bumetanide 2 mg tablet 2 mg PO DAILY Fluid 09/15/24 04/22/25 02/25/25 Rx
retention/Swelling 30 days #30 tabs
clopidogrel 75 mg tablet 75 mg PO DAILY Blood clot 09/15/24 04/22/25 02/25/25 Rx
prevention/tx/Afib #30 tabs
dapagliflozin propanediol 10 mg 10 mg PO DAILY Heart 09/15/24 04/22/25 02/25/25 Rx
tablet disease/condition 30 days #30 tabs
docusate sodium 100 mg capsule 100 mg PO BID Constipation 30 days 09/15/24 04/22/25 02/25/25 Rx
#60 caps
ezetimibe 10 mg tablet (Zetia) 10 mg PO QPM High cholesterol 30 09/15/24 04/22/25 02/25/25 Rx
days #30 tabs
sitagliptin phosphate 100 mg 100 mg PO DAILY Diabetes 30 days 09/15/24 04/22/25 02/25/25 Rx
tablet (Januvia) #30 tabs
tamsulosin 0.4 mg capsule 0.4 mg PO DAILY Bladder/BPH 30 09/15/24 04/22/25 02/25/25 Rx
days #30 caps
acetaminophen 500 mg tablet 1,000 mg PO DAILYPRN PRN mild pain 11/16/24 04/22/25 02/25/25 History
insulin aspart U-100 100 unit/mL 1 sliding scale dose SC AC Diabetes 11/16/24 04/22/25 02/25/25 History
(3 mL) subcutaneous pen
insulin glargine 100 unit/mL (3 21 unit SC QHS Diabetes 11/16/24 04/22/25 02/25/25 History
mL) subcutaneous pen (Lantus
Solostar U-100 Insulin)
metoprolol succinate 25 mg 25 mg PO DAILY blood pressure 11/16/24 04/22/25 02/25/25 History
tablet,extended release 24 hr
trazodone 50 mg tablet 75 mg PO HS insomnia 11/16/24 04/22/25 02/25/25 History
atorvastatin 80 mg tablet 40 mg PO QPM High Cholesterol 01/21/25 04/22/25 02/25/25 History
therapeutic multivitamin 1 tab PO DAILY Supplement 02/15/25 04/22/25 02/25/25 History
coQ10 (ubiquinol) 100 mg capsule 100 mg PO QPM Supplement 02/26/25 04/22/25 02/25/25 History
guaifenesin 600 mg tablet, 600 mg PO BIDPRN PRN COUGH 02/26/25 04/22/25 02/25/25 History
extended release 12 hr (Mucinex)
oxycodone 5 mg tablet 5 mg PO TIDPRN PRN mild pain 02/26/25 04/22/25 02/25/25 History
benzonatate 100 mg capsule 100 mg PO TIDPRN PRN cough #20 caps 03/10/25 04/22/25 Unknown Rx
gabapentin 100 mg capsule 100 mg PO TID Post-operative 03/10/25 04/22/25 02/25/25 Rx
Neuropathic Pain 30 days #90 caps
warfarin 5 mg tablet 5 mg PO QPM Blood Clot 03/10/25 04/22/25 02/25/25 Rx
Prevention/Tx #0 tabs
Review of Systems
-
History Source: Patient
All other systems: Negative unless noted
Vitals / Labs / Diagnostic Testing
Vital Signs
Temp Pulse Resp BP Pulse Ox
97.9 F 57 16 107/53 98
05/25/25 07:11 05/25/25 08:26 05/25/25 07:11 05/25/25 08:26 05/25/25 07:11
Lab Data
05/25/25 06:25
05/25/25 06:24
Laboratory Results
05/24/25
20:36
PT 31.0 H
INR 3.00
APTT 36.6 H
Microbiology
05/24/25 20:36 Nasal Swab Influenza Types A & B (UNA) - Final
Negative for Influenza A & B, NAAT
Negative results must be combined with clinical observations
and patient history.
Nucleic Acid Amplification test (NAAT)performed on the
[employer] platform.
Diagnostic Testing:
Physical Exam
-
HEENT: Normocephalic, Anicteric and Moist Mucous Membranes
Cardiovascular: S1/S2 and Regular Rhythm
Respiratory: Clear and Non-Labored Respirations
GI: Soft, Non Distended and Non Tender
Neurology: Awake, Alert, Oriented and No Motor Deficits
Skin: Warm, Dry and Good Color
General: Comfortable and Other (NAD)
Assessment
-
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
decortication and pleurodesis 02/04/2025, discharged home on 02/11 with Heimlich valve and readmitted for empyema, ASEPT placement 03/03/25, recent discharge 03/10/25. He presents again with increasing cough with productive mucus, chest
congestion. Chest x-ray shows small loculated right basilar hydropneumothorax, decreased size of the pneumothorax compared to prior but increased pleural effusion compared to most recent CT. We are asked for eval.
Chronic recurrent right pleural effusion, unchanged
Worsening chest congestion, cough w/ productive sputum
Conditions present prior to admission:
Recurrent right pleural effusion s/p thora 12/03/24, 12/18/24
status post RATS decortication of right lower lobe and right middle lobes, decortication of chest wall due to thick pleura rind, pleurodesis 02/04/2025
discharged home on 02/11/25 w/ right pleural chest tube to Heimlich valve and leg bag gravity drainage
Readm 02/15/25-02/21/25: s/p lysis attempt 02/16/25; s/p insertion of chest tube 'B' large bore/anterior R chest placement 02/17/[address] 'A' was dcd 02/19; R pleur CT 'B' dcd on 02/20
s/p ASEPT 03/03/25
Pleural fluid cx with Klebsiella oxytoca -ID switched on 02/19 from Zosyn to Ceftriaxone 2g IV q24h x 6 weeks through 03/30/25, picc line placed 02/20
CAD/aortic stenosis/Mechanical AVR /CABG 2008-chronic anticoagulation (Coumadin)
s/p PCI 2024 complicated by spiral dissection of the DE [place] SANTOS subsequent redo CABG 08/2024
Severe restrictive lung disease, TLC 43%
BPH.
PAT.
Diabetes/neuropathy.
GERD.
Hypertension.
Hyperlipidemia.
Plan
Remains on room air-no change in pulmonary status.
He notes ongoing complaints of chest congestion, productive cough
Prior recent admission and discharge records reviewed
Complicated history of pneumothorax ex-vacuo/Pleural thickening/Trapped lung physiology
ASEPT placement 03/03/2025; removed 04/22/2025
Micro reviewed--history of pneumonia
+ Klebsiella oxy on prior pleural culture from 02/17/25
+ E coli sputum 08/23/24
Repeat sputum culture given productive cough
Speech eval on prior admission noted 08/18/24-Patient with elevated risk factors for dysphagia (i.e., s/p CABG with HAILEY, sternotomy; VDRF 08/13-08/17) and chronic dysphagia (i.e., VFSS 12/10/2020 WFL oral/pharyngeal, esophageal stasis). Vocal quality
WFL-mild s/p extubation. WFL-mild oral stage differences.
Ongoing speech issues, micro data suggesting aspiration is an issue or contributing cause
Could be related to aspiration
Placed on empiric antibiotics
Patient notes that he is already improving since admission
DVT prophylaxis-on Coumadin
Nutrition
Physical therapy-patient very deconditioned. PT/OT evals
Difficult situation with recurrent readmissions
Will need outpatient follow-up which we will arrange through our office
Will follow
Diagnostic data:
CXR 05/24/25- Small loculated right basilar hydropneumothorax. Decreased size of the pneumothorax but increased pleural fluid compared to the most recent chest CT and chest radiographs. Findings again most in keeping with a trapped lung. No new
pulmonary consolidation. Stable cardiomediastinal silhouette. Sternotomy wires, mediastinal clips, and an aortic valve prosthesis are in place. Chronic degenerative changes of the spine.
CXR 03/18/25- Stable right basilar chest tube and right pneumothorax compatible with a trapped lung, compared to the chest radiograph from 03/10/2025.
Chest x-ray 02/15/2025-progressive accumulation of right pleural fluid, no pneumothorax
Chest x-ray 02/16/2025-right chest tube present with moderate right pleural effusion
CT Chest 04/14/25- 1. Moderate right hydropneumothorax the right lung base. Overall morphology is suggestive of trapped lung physiology.
2. 9 mm lung nodule within the right middle lobe. Nodularity of the pleura adjacent to the hydropneumothorax. Please correlate with cytology from prior pleural fluid sampling, and with follow-up CT to exclude pulmonary neoplasm.
3. Severe coronary arterial calcification. Please correlate with symptoms of and risk factors for coronary artery disease, with further workup as clinically appropriate.
4. Borderline mediastinal lymph node enlargement, unchanged.
CT chest 02/15/2025-complex moderate right pleural effusion, numerous foci of gas are seen throughout the fluid likely multiloculated, mild mediastinal adenopathy
CT Chest 02/26/25- Progressive moderate to large complex loculated hydropneumothorax on the right, as described. Some of the fluid appears slightly increased in attenuation, which could reflect an element of hemorrhage. Intraluminal opacity is
demonstrated in the right upper and lower lobe bronchus, consistent with mucous plugging. Progressive airspace opacity throughout the right hemithorax. Likely progressive atelectasis. There are some areas of patchy consolidation in the mid to lower
lung zone. The possibility of superimposed pneumonia cannot be excluded. Suggested mild volume loss with slight shift of the mediastinal structures to the left compared to the prior examination. A small left pleural effusion has developed. No
significant change in mediastinal adenopathy.
CT neck 05/03/21--severe degenerative/arthritic changes noted on the left side where the collar bone and chest bone or sternum meet -Sternoclavicular-which could explain the lump that he feels,, some carotid artery closure was noted and warrants
carotid ultrasounds, incidentally, his epiglottis also had a lot of calcifications which sometimes can be seen with people that have swallowing difficulties-Patient notified-we'll discuss carotid ultrasounds at next visit.�������
CT head angiogram 07/31/2023-no CT evidence for intracranial aneurysm
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
Brain MRA 06/28/21-no hemodynamically significant stenosis, branch occlusion or aneurysm�������
Neck MRA 06/28/21-no significant carotid plaque formation or hemodynamically significant stenosis
Echocardiogram 12/25/19-EF 65-70%�������
Echocardiogram 04/18/2024-EF 45-50%
ECHO 11/18/24- Mildly reduced left ventricular systolic function. Left ventricular ejection fraction is 45%. Mild mitral stenosis. Mild/moderate mitral regurgitation. Normal functioning mechanical prosthetic aortic valve replacement. Peak/mean
gradients are 7/3 mmHg. No aortic regurgitation is seen. Compared to 04/18/24: LVEF is similar (prior 45-50%). MR has progressed from mild to mild/moderate.
Nuclear stress test 05/17/21-Systolic function moderately reduced, EF 41%, moderate risk study.
Cardiac catheterization 08/13/2024-successful PCI mid LAD distal stent edge haziness and 80% ISR lesion with reduction in stenosis, successful PCI 90% DE LOS SANTOS/LAD with reduction of stenosis to 0% with subsequent complication by dissection of DE [place] SANTOS graft
after post dilation
PSG around 2006 AHI-36, desaturation stefano 85%, CPAP 7-cm�������
HST-after 80 pound weight loss-05/23/21-ROSE-1.4, desaturation stefano 89%.
PFT 05/01/2025: FEV1 1.46 L 51%, FVC 1.85 L 49%, ratio 79. Post FEV1 1.55 L 55% no BD response. TLC 43%, DLCO 40%-severe restriction
Total time spent on this consultation/encounter __75__ minutes which includes review of history, physical exam, medications, laboratory data, personal review of imaging, extensive review of outpatient records, discussion with care team and
respiratory therapy.
--- NOTE | 2025-05-25 12:05 | WOUNDNOTE ---
WO RN note: Patient admitted for dyspnea.
See H&P for complete history. Lives with . Goes to [facility] wound center.
PMH- PAD, Sacral and L heel PI's, type 2 diabetes, HTN, R pleural effusion-post RATS 02/[address] Alejandre. 75 year old male redo CABG August 2024 and robotic assisted right decortication and pleurodesis by Dr. Alejandre on 02/04/2025 for entrapped right lower
lobe lung with recurrent pleural effusions and respiratory failure with recurrent right pleural effusion and Klebsiella oxytoca empyema
Wound Location and type/assessment: Patient known to wound care service, last seen 03/05/25 for healing stage 4 sacral PI. Now nearly healed, much smaller, pink base and maceration surrounding. Reviewed current treatment with wound care nurse
Nichole and confirmed with patient. L heel PI healed, dry thin scab residual. Right heel intact, blanchable pink. Has sneakers at bedside that he uses when ambulating at home.
Appetite: Good. Encourage protein in diet.
Pressure redistribution devices in place: On Accumax bed, able to turn to sides on own. Patient reports he stays on sides when in bed and uses a U shaped cushion for chair at home. Heels off-loaded with pillow under calves.
Plan: Sacral dressing changed, obtained collagen from [facility], folded 2x2 gauze then silicone foam. Applied skin prep to periwound, no longer using barrier cream states patient. Heel foams applied. Air chair cushion placed in room to use when sitting.
ERINN Malcolm given update. Will confirm orders with hospitalist and updated care plan.
Note to case management of equipment requested for discharge: None.
Recommend follow up at wound care center upon discharge.
[2025-05-25 12:11] LABS: Glucose - Point of Care 209 mg/dl (70-99)
[2025-05-25] MEDS: NOVOLOG FLEXPEN-LOW RESISTANCE 2 UNITS SC (12:30)
--- NOTE | 2025-05-25 14:02 | W.PN.HOSP.TC ---
Today's Communication/Plan
-
see PN
Assessment / Plan
Assessment / Plan
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 Completed IV Abx 6 weeks cource in Sept due to infected pleural
fluid, History of DE LOS SANTOS dissection duering heart cath, NSVT camr with worsening cough and presure in forehead for past 3 weeks. HE stopped his Flonase 3 weeks ago 2/2 developed nasal bleed. Most likely chronic sinusitis with postnasal drip
A/P:
#Cough, most likely postnasal drip
#Acute on chronic sinusitis
Chest XR w/o pneumonia, but persistent hydropneumothorax
Flonase
Doxycycline
Pulm consult
COVID-19 Influenza PCR neg
#Chronic cough
2/2 Hx of chronic trapped lung, decortication
cont bronchodilators
Incentive spirometry
#CAD, stable
#COPD stable
#HLD
#Afib, paroxysmal
#PAT
#BPH
#Essential HTN
#Spinal stenosis
cont home meds
#MEchanical AV
cont Warfarin, with afib reasonable target 2.5-3.5
INR dily while admitted
#DM type 2 with neuropathy
Accuchecks, Insulin SS, DM diet
DVT ppx Coumadin
full code
I have spent at least 58min reviewing chart, test results, communication with consultants and providing direct patient care
Anticipated Discharge: Within 24 hours
Subjective/Interval History
-
Date of Service: May 25, 2025
Objective Data
-
Labs:
Laboratory Results
05/25/25 05/25/25
06:24 06:25
WBC 9.3
Hgb 9.7 L
Hct 31.0 L
Plt Count 219
Sodium 135
Potassium 3.4 L
Chloride 101
Carbon Dioxide 29
BUN 37 H
Creatinine 1.0
Glucose 133 H
Calcium 8.3 L
Vital Signs:
Vital Signs
Temp Pulse Resp BP Pulse Ox
97.9 F 57 16 107/53 98
05/25/25 07:11 05/25/25 08:26 05/25/25 07:11 05/25/25 08:26 05/25/25 07:11
I&O
05/24/25 05/25/25 05/26/25
06:59 06:59 06:59
Intake Total 480 / 480
Output Total 400 / 400
Balance 80 / 80
Review of Systems
-
History Source: Patient
All other systems: Reviewed and negative
Physical Exam
-
General: No Apparent Distress
HEENT: Other (pressure pain in frontal area)
Respiratory: Clear to Auscultation
Cardiac: Regular Rhythm
Genito-urinary: No Costovertebral Tender
Musculoskeletal: No Clubbing, No Cyanosis and No Edema
Psych: Calm
--- NOTE | 2025-05-25 14:14 | CM ---
CM reviewed chart, patient seen bedside, initial assessment completed.
Patient is a 75-year-old who has past medical history significant for insulin-dependent diabetes, chronic diastolic heart failure, PAT not on CPAP, CAD status post CABG 2008, mechanical aortic valve replacement on chronic anticoagulation with
Coumadin, PCI in 2024 complicated by spiral dissection of the DE LOS SANTOS with subsequent redo CABG, right middle lobe and right lower lobe repair with chest wall decortication and pleurodesis in January, complicated by multiple rounds of liquid therapies
performed by interventional radiology.
Patient resides with his and granddaughter in a multiple story home, reports he goes up/down steps.
Patient has a walker for outside of the home, cane for in the home.
Reports VN in past, believes [facility], has had home infusion.
Hx [facility] after open heart surgery.
Patient reports scheduled t start Pulmonary Rehab in July.
PCP Kyrie Asher, Pharmacy [facility], confirms prescription coverage.
Patient denies insecurities at home.
ZARATE form verbally reviewed, provided with copy, placed in chart.
Patient denies needs at this time, will continue to follow for d/c planning.
Plan; home no needs anticipated
[2025-05-25 15:00] VITALS: BP 105/53
[2025-05-25] MEDS: ZETIA 10 MG PO (16:53)
[2025-05-25] MEDS: LIPITOR 40 MG PO (16:53)
[2025-05-25 16:57] LABS: Glucose - Point of Care 179 mg/dl (70-99)
[2025-05-25] MEDS: NOVOLOG FLEXPEN-LOW RESISTANCE 1 UNITS SC (17:03)
[2025-05-25] MEDS: COUMADIN 2.5 MG PO (17:06)
[2025-05-25 21:41] LABS: Glucose - Point of Care 168 mg/dl (70-99)
[2025-05-25] MEDS: STERILE WATER FOR INJECTION 10 ML IV (21:52)
[2025-05-25] MEDS: ROCEPHIN 1000 MG IV (21:52)
[2025-05-25] MEDS: DESYREL 75 MG PO (21:53)
[2025-05-25] MEDS: LANTUS 0.2 UNITS SC (21:54)
[2025-05-25 23:26] VITALS: BP 131/66
[2025-05-26 05:47] VITALS: BMI 26.5
[2025-05-26 07:52] LABS: INR 2.81; PT 29.6 Sec (11.4-14.6)
[2025-05-26 08:07] VITALS: BP 120/66
[2025-05-26 08:28] LABS: Glucose - Point of Care 110 mg/dl (70-99)
[2025-05-26] MEDS: NOVOLOG FLEXPEN-LOW RESISTANCE SC (08:32)
[2025-05-26] MEDS: NEURONTIN 100 MG PO (08:48)
[2025-05-26] MEDS: BUMEX 2 MG PO (08:49)
[2025-05-26] MEDS: FARXIGA 10 MG PO (08:50)
[2025-05-26] MEDS: JANUVIA 100 MG PO (08:50)
[2025-05-26] MEDS: VIBRAMYCIN 100 MG PO (08:50)
[2025-05-26] MEDS: FLOMAX 0.4 MG PO (08:50)
[2025-05-26] MEDS: TOPROL XL 25 MG PO (08:50)
[2025-05-26] MEDS: PACERONE 200 MG PO (08:50)
[2025-05-26] MEDS: PLAVIX 75 MG PO (08:51)
--- NOTE | 2025-05-26 09:43 | W.PN.PUL3 ---
Today's Communication / Plan
-
Cough ongoing but improved since admission
Could not produce adequate sputum culture, likely can d/c on empiric PO course
Will add proAIR to use as needed which he can continue as OP
FU short term in 2 weeks, to be arranged by our office
He was agreeable otherwise to d/c planning, reviewed plan with as well
Assessment
-
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
decortication and pleurodesis 02/04/2025, discharged home on 02/11 with Heimlich valve and readmitted for empyema, ASEPT placement 03/03/25, recent discharge 03/10/25. He presents again with increasing cough with productive mucus, chest
congestion. Chest x-ray shows small loculated right basilar hydropneumothorax, decreased size of the pneumothorax compared to prior but increased pleural effusion compared to most recent CT. We are asked for eval.
Chronic recurrent right pleural effusion, unchanged
Worsening chest congestion, cough w/ productive sputum
Cannot r/o bronchitis
Conditions present prior to admission:
Recurrent right pleural effusion s/p thora 12/03/24, 12/18/24
status post RATS decortication of right lower lobe and right middle lobes, decortication of chest wall due to thick pleura rind, pleurodesis 02/04/2025
discharged home on 02/11/25 w/ right pleural chest tube to Heimlich valve and leg bag gravity drainage
Readm 02/15/25-02/21/25: s/p lysis attempt 02/16/25; s/p insertion of chest tube 'B' large bore/anterior R chest placement 02/17/[address] 'A' was dcd 02/19; R pleur CT 'B' dcd on 02/20
s/p ASEPT 03/03/25
Pleural fluid cx with Klebsiella oxytoca -ID switched on 02/19 from Zosyn to Ceftriaxone 2g IV q24h x 6 weeks through 03/30/25, picc line placed 02/20
CAD/aortic stenosis/Mechanical AVR /CABG 2008-chronic anticoagulation (Coumadin)
s/p PCI 2024 complicated by spiral dissection of the DE LOS SANTOS subsequent redo CABG 08/2024
Severe restrictive lung disease, TLC 43%
BPH.
PAT.
Diabetes/neuropathy.
GERD.
Hypertension.
Hyperlipidemia.
Plan
Remains on room air-no change in pulmonary status.
He notes ongoing complaints of chest congestion, productive cough
Prior recent admission and discharge records reviewed
Complicated history of pneumothorax ex-vacuo/Pleural thickening/Trapped lung physiology
ASEPT placement 03/03/2025; removed 04/22/2025
CXR unchanged, no need for intervention
Micro reviewed--history of pneumonia
+ Klebsiella oxy on prior pleural culture from 02/17/25
+ E coli sputum 08/23/24
Repeat sputum culture given productive cough
Speech eval on prior admission noted 08/18/24-Patient with elevated risk factors for dysphagia (i.e., s/p CABG with HAILEY, sternotomy; VDRF 08/13-08/17) and chronic dysphagia (i.e., VFSS 12/10/2020 WFL oral/pharyngeal, esophageal stasis). Vocal quality
WFL-mild s/p extubation. WFL-mild oral stage differences.
Ongoing speech issues, micro data suggesting aspiration is an issue or contributing cause
Could be related to aspiration
Placed on empiric antibiotics
Patient notes that he is already improving since admission
Sputum could not be formally produced, can send home on empiric abx
DVT prophylaxis-on Coumadin
Nutrition
Physical therapy-patient very deconditioned. PT/OT evals
Difficult situation with recurrent readmissions
Will need outpatient follow-up which we will arrange through our office
Updated at bedside
Diagnostic data:
CXR 05/24/25- Small loculated right basilar hydropneumothorax. Decreased size of the pneumothorax but increased pleural fluid compared to the most recent chest CT and chest radiographs. Findings again most in keeping with a trapped lung. No new
pulmonary consolidation. Stable cardiomediastinal silhouette. Sternotomy wires, mediastinal clips, and an aortic valve prosthesis are in place. Chronic degenerative changes of the spine.
CXR 03/18/25- Stable right basilar chest tube and right pneumothorax compatible with a trapped lung, compared to the chest radiograph from 03/10/2025.
Chest x-ray 02/15/2025-progressive accumulation of right pleural fluid, no pneumothorax
Chest x-ray 02/16/2025-right chest tube present with moderate right pleural effusion
CT Chest 04/14/25- 1. Moderate right hydropneumothorax the right lung base. Overall morphology is suggestive of trapped lung physiology.
2. 9 mm lung nodule within the right middle lobe. Nodularity of the pleura adjacent to the hydropneumothorax. Please correlate with cytology from prior pleural fluid sampling, and with follow-up CT to exclude pulmonary neoplasm.
3. Severe coronary arterial calcification. Please correlate with symptoms of and risk factors for coronary artery disease, with further workup as clinically appropriate.
4. Borderline mediastinal lymph node enlargement, unchanged.
CT chest 02/15/2025-complex moderate right pleural effusion, numerous foci of gas are seen throughout the fluid likely multiloculated, mild mediastinal adenopathy
CT Chest 02/26/25- Progressive moderate to large complex loculated hydropneumothorax on the right, as described. Some of the fluid appears slightly increased in attenuation, which could reflect an element of hemorrhage. Intraluminal opacity is
demonstrated in the right upper and lower lobe bronchus, consistent with mucous plugging. Progressive airspace opacity throughout the right hemithorax. Likely progressive atelectasis. There are some areas of patchy consolidation in the mid to lower
lung zone. The possibility of superimposed pneumonia cannot be excluded. Suggested mild volume loss with slight shift of the mediastinal structures to the left compared to the prior examination. A small left pleural effusion has developed. No
significant change in mediastinal adenopathy.
CT neck 05/03/21--severe degenerative/arthritic changes noted on the left side where the collar bone and chest bone or sternum meet -Sternoclavicular-which could explain the lump that he feels,, some carotid artery closure was noted and warrants
carotid ultrasounds, incidentally, his epiglottis also had a lot of calcifications which sometimes can be seen with people that have swallowing difficulties-Patient notified-we'll discuss carotid ultrasounds at next visit.�������
CT head angiogram 07/31/2023-no CT evidence for intracranial aneurysm
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
Brain MRA 06/28/21-no hemodynamically significant stenosis, branch occlusion or aneurysm�������
Neck MRA 06/28/21-no significant carotid plaque formation or hemodynamically significant stenosis
Echocardiogram 12/25/19-EF 65-70%�������
Echocardiogram 04/18/2024-EF 45-50%
ECHO 11/18/24- Mildly reduced left ventricular systolic function. Left ventricular ejection fraction is 45%. Mild mitral stenosis. Mild/moderate mitral regurgitation. Normal functioning mechanical prosthetic aortic valve replacement. Peak/mean
gradients are 7/3 mmHg. No aortic regurgitation is seen. Compared to 04/18/24: LVEF is similar (prior 45-50%). MR has progressed from mild to mild/moderate.
Nuclear stress test 05/17/21-Systolic function moderately reduced, EF 41%, moderate risk study.
Cardiac catheterization 08/13/2024-successful PCI mid LAD distal stent edge haziness and 80% ISR lesion with reduction in stenosis, successful PCI 90% DE LOS SANTOS/LAD with reduction of stenosis to 0% with subsequent complication by dissection of DE LOS SANTOS graft
after post dilation
PSG around 2006 AHI-36, desaturation stefano 85%, CPAP 7-cm�������
HST-after 80 pound weight loss-05/23/21-ROSE-1.4, desaturation stefano 89%.
PFT 05/01/2025: FEV1 1.46 L 51%, FVC 1.85 L 49%, ratio 79. Post FEV1 1.55 L 55% no BD response. TLC 43%, DLCO 40%-severe restriction
Total time spent on this consultation/encounter __50__ minutes which includes review of history, physical exam, medications, laboratory data, personal review of imaging, extensive review of outpatient records, discussion with care team and
respiratory therapy.
Subjective Data
-
Date of Service:
Date of Service: May 26, 2025
Chief Complaint: Pulmonary Follow Up
Subjective:
Still has cough at night but he feels overall improved
Stable on RA
at bedside
Objective Data
Data Reviewed
Vital Signs / I&O / Oxygen:
Vital Signs
Temp Pulse Resp BP Pulse Ox
97.6 F 52 12 120/66 97
05/26/25 08:07 05/26/25 08:49 05/26/25 08:07 05/26/25 08:49 05/26/25 08:07
Intake and Output
05/25/25 05/26/25 05/27/25
06:59 06:59 06:59
Intake Total 480 / 480 820 / 820
Output Total 400 / 400 1575 / 1575
Balance 80 / 80 -755 / -755
SaO2 97
Physical Exam
General: Comfortable and Other (NAD)
HEENT: Normocephalic, Anicteric and Moist Mucous Membranes
Cardiovascular: S1-S2 and Regular Rhythm
Respiratory: Clear and Non-Labored Respirations
GI: Soft, Non Distended and Non Tender
Neurology: Awake, Alert, Oriented and No Motor Deficits
Skin: Warm, Dry and Good Color
Labs/Micro/Reports
Lab Data
05/25/25 06:25
05/25/25 06:24
Laboratory Results
05/26/25
06:23
PT 29.6 H
INR 2.81
Microbiology
05/24/25 20:36 Blood/Venous Blood Culture - Preliminary
No Growth in 24 hours- Final report to follow
05/24/25 20:36 Blood/Venous Blood Culture - Preliminary
No Growth in 24 hours- Final report to follow
05/25/25 19:10 Sputum Respiratory Culture - Final
05/25/25 19:10 Sputum Gram Stain - Final
05/24/25 20:36 Nasal Swab Influenza Types A & B (UNA) - Final
Negative for Influenza A & B, NAAT
Negative results must be combined with clinical observations
and patient history.
Nucleic Acid Amplification test (NAAT)performed on the
[employer] platform.
--- NOTE | 2025-05-26 11:16 | W.PN.HOSP.TC ---
Today's Communication/Plan
-
dc
Assessment / Plan
Assessment / Plan
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 Completed IV Abx 6 weeks cource in Sept due to infected pleural
fluid, History of DE LOS SANTOS dissection during heart cath, NSVT came with worsening cough and pressure in forehead for past 3 weeks. HE stopped his Flonase 3 weeks ago 2/2 developed nasal bleed. Most likely chronic sinusitis with postnasal drip pulmonary
could not r/o bronchitis. Could not produce reliable sputum. Medically stable for D/C home to complete total of 7 days of empiric Abx. No indication for thoracenthesis for lung ex vacuo as per pulm.
A/P:
#Cough, most likely postnasal drip
#Acute on chronic sinusitis, cannot exclude allergic
Chest XR w/o pneumonia, but persistent hydropneumothorax
Flonase, consider bridging to antihistamine - defer to outpatient pulm as discussed with patient
Doxycycline
Pulm consult
COVID-19 Influenza PCR neg
#Chronic cough
2/2 Hx of chronic trapped lung, decortication
cont bronchodilators
Incentive spirometry
Sputum Cx -no WBC seen
#CAD, stable
#COPD stable
#HLD
#Afib, paroxysmal
#PAT
#BPH
#Essential HTN
#Spinal stenosis
cont home meds
#MEchanical AV
cont Warfarin, with afib reasonable target 2.5-3.5
INR daily while admitted
#DM type 2 with neuropathy
Accuchecks, Insulin SS, DM diet
DVT ppx Coumadin
full code
I have spent at least 51min reviewing chart, test results, communication with consultants and providing direct patient care
Anticipated Discharge: Today
Subjective/Interval History
-
Date of Service: May 26, 2025
Objective Data
-
Labs:
Laboratory Results
05/26/25
06:23
PT 29.6 H
INR 2.81
Vital Signs:
Vital Signs
Temp Pulse Resp BP Pulse Ox
97.6 F 52 12 120/66 97
05/26/25 08:07 05/26/25 08:49 05/26/25 08:07 05/26/25 08:49 05/26/25 08:07
I&O
05/25/25 05/26/25 05/27/25
06:59 06:59 06:59
Intake Total 480 / 480 820 / 820
Output Total 400 / 400 1575 / 1575
Balance 80 / 80 -755 / -755
Review of Systems
-
History Source: Patient
All other systems: Reviewed and negative
Physical Exam
-
General: No Apparent Distress
Respiratory: Decreased Breath Sounds (R); Negative Wheezes or Crackles
Neuro: Awake, Alert, Oriented and AO x 3
Psych: Calm
[2025-05-26 12:00] LABS: Glucose - Point of Care 162 mg/dl (70-99)
[2025-05-26] MEDS: ROBITUSSIN DM 10 ML PO (12:03)
[2025-05-26] MEDS: NON-FORMULARY ITEM 1 PUFF NASAL (12:04)
[2025-05-26] MEDS: NOVOLOG FLEXPEN-LOW RESISTANCE 1 UNITS SC (12:04)
[2025-05-26] MEDS: DUONEB 3 ML INH (12:06)
[2025-05-26 14:00] VITALS: BP 106/62
--- NOTE | 2025-05-26 14:01 | W.DCSUMMARY ---
Addendum entered and electronically signed by Devin Pagan MD 05/26/25 16:17:
#sacrum healing stage 4 pressure injury POA
Original Note:
Discharge Summary
Discharge Data
Date of Admission: 05/24/25
Date of Discharge: 05/26/25
-
Pending Results: No
Hospital Course
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 Completed IV Abx 6 weeks cource in Sept due to infected pleural
fluid, History of DE LOS SANTOS dissection during heart cath, NSVT came with worsening cough and pressure in forehead for past 3 weeks. HE stopped his Flonase 3 weeks ago 2/2 developed nasal bleed. Most likely chronic sinusitis with postnasal drip pulmonary
could not r/o bronchitis. Could not produce reliable sputum. Medically stable for D/C home to complete total of 7 days of empiric Abx. No indication for thoracenthesis for lung ex vacuo as per pulm.
I have spent at least 51min reviewing chart, test results, communication with consultants and providing direct patient care
Patient was managed for:
#Cough, most likely postnasal drip
#Acute on chronic sinusitis, cannot exclude allergic
#Chronic cough
#CAD, stable
#COPD stable
#HLD
#Afib, paroxysmal
#PAT
#BPH
#Essential HTN
#Spinal stenosis
#MEchanical AV
#DM type 2 with neuropathy
Discharge Plan
-
Patient Disposition: Home (Routine Discharge)
Discharge Diagnosis/Procedures: Cough
Diet: Diabetic, Carb Controlled
Driving Restrictions: As prior to admission
Activity Restrictions/Additional Instructions:
Wound Care Instructions
Sacrum: clean with saline, skin prep periwound, place moistened piece of collagen to base of wound followed by folded 2x2 gauze then silicone foam. Change daily and prn drainage.
Increase protein in diet
turning when in bed, offloading cushion when sitting
Follow up at wound care center call for an appointment.
Referrals:
Kyrie Asher MD [Family Provider, Family Practice]
Sven Anguiano MD [Active, Pulmonary Medicine] - in one to two weeks
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
Prescriptions:
New
doxycycline hyclate 100 mg Capsule
100 mg PO Q12 Qty: 10 0RF
albuterol sulfate 90 mcg/actuation Hfa Aerosol Inhaler
2 puff inhalation R TID Qty: 8.5 0RF
warfarin [Jantoven] 2.5 mg Tablet
2.5 mg PO SuMoWeThSa@1800 Qty: 0 0RF
warfarin [Jantoven] 5 mg Tablet
5 mg PO TuFr@1800 Qty: 0 0RF
cefdinir 300 mg capsule
300 mg PO BID Qty: 10 0RF
fluticasone propionate [Flonase Allergy Relief] 50 mcg/actuation spray,suspension
1 spray intranasal BID Qty: 16 0RF
Continued
cholecalciferol (vitamin D3) 1,000 UNITS tablet
1,000 units PO QPM
acetaminophen 500 mg Tablet
1,000 mg PO DAILYPRN PRN (Reason: mild pain)
insulin aspart U-100 100 unit/mL (3 mL) Insulin Pen
1 sliding scale dose SC AC
insulin glargine [Lantus Solostar U-100 Insulin] 100 unit/mL (3 mL) Insulin Pen
21 unit SC QHS
trazodone 50 mg tablet
75 mg PO HS
metoprolol succinate 25 mg tablet extended release 24 hr
25 mg PO DAILY
atorvastatin 80 mg Tablet
40 mg PO QPM
therapeutic multivitamin Tablet
1 tab PO DAILY
coQ10 (ubiquinol) 100 mg Capsule
100 mg PO QPM
guaifenesin [Mucinex] 600 mg Tablet Extended Release 12hr
600 mg PO BIDPRN PRN (Reason: COUGH)
oxycodone 5 mg tablet
5 mg PO TIDPRN PRN (Reason: mild pain)
gabapentin 100 mg Capsule
100 mg PO TID 30 Days Qty: 90 0RF
docusate sodium 100 mg Capsule
100 mg PO BID 30 Days Qty: 60 0RF
Januvia 100 mg Tablet
100 mg PO DAILY 30 Days Qty: 30 0RF
amiodarone 200 mg Tablet
200 mg PO DAILY 30 Days Qty: 30 0RF
clopidogrel 75 mg Tablet
75 mg PO DAILY Qty: 30 0RF
tamsulosin 0.4 mg Capsule
0.4 mg PO DAILY 30 Days Qty: 30 0RF
ezetimibe [Zetia] 10 mg Tablet
10 mg PO QPM 30 Days Qty: 30 0RF
dapagliflozin propanediol 10 mg Tablet
10 mg PO DAILY 30 Days Qty: 30 0RF
bumetanide 2 mg Tablet
2 mg PO DAILY 30 Days Qty: 30 0RF
Discontinued
warfarin 5 mg tablet
5 mg PO QPM Qty: 0 0RF
Rx Instructions:
Next dose (03/11/25) to be determined by Floor Coverer following INR check.
benzonatate 100 mg Capsule
100 mg PO TIDPRN PRN (Reason: cough) Qty: 20 0RF
Discharge Orders:
Discharge Patient (As Directed); Ordered 05/26/25
Ordered By: Devin Pagan
Discharge Date and Time
Print Language: IRISH
--- NOTE | 2025-05-26 15:43 | PN.CDI ---
CDI
- -
CDI:
Physician Documentation Request
Admit Date: 05/24/25 23:25
Dear Doctor Ej,
Please review the following and provide your response in the progress notes.
Clinical Indicators:
Pt admitted with acute on chronic sinusitis, cannot exclude allergic
Documented per nursing wound care note 05/25,' Present on admission sacrum healing stage 4...pressure injury stage 4 ...treatment provided silicone border foam...'
Wound care note 05/25, ' Patient known to wound care service, last seen 03/05/25 for healing stage 4 sacral PI. Now nearly healed, much smaller, pink base and maceration surrounding....Plan: Sacral dressing changed, obtained collagen from SPD, folded
2x2 gauze then silicone foam. ...'
Physician documentation of the type and location of wounds is required for compliant documentation. Based on the above clinical findings and your assessment, please provide the following in your progress note:
1. Location of the ulcer/wound, including laterality.
2. Type (etiology) of ulcer/wound:
- Pressure (decubitus) ulcer
- Non-pressure ulcer
- Other ( please specify)
Use of terms such as suspected, likely, concern for, or probable (associated with a specific diagnosis that is being evaluated, monitored, or treated as if it exists) are acceptable and can be coded in the inpatient setting, when documented at the
time of discharge.
Thank you,
Jada Waldrop RN
CDI Specialist
[facility] [facility]
Please use your independent medical judgment in providing your response.
*Source: National Pressure Ulcer Advisory Panel (NPUAP)
== END 2025-05-26 15:28 | disposition home or self-care (01) | DRG 152 ==
LOC: 4 WEST ACU 23:25
PROVIDERS: ADMITTING PHYSICIAN Internal Medicine; ATTENDING PHYSICIAN Internal Medicine; EMERGENCY PHYSICIAN Emergency Medicine; FAMILY PHYSICIAN Family Medicine; OTHER PHYSICIAN Internal Medicine
DX: J01.90 Acute sinusitis, unspecified (principal); L89.154 Pressure ulcer of sacral region, stage 4; I50.32 Chronic diastolic (congestive) heart failure; J94.8 Other specified pleural conditions; J20.9 Acute bronchitis, unspecified; I25.10 Atherosclerotic heart disease of native coronary artery without angina pectoris; I48.0 Paroxysmal atrial fibrillation; E78.00 Pure hypercholesterolemia, unspecified; G47.33 Obstructive sleep apnea (adult) (pediatric); N40.0 Benign prostatic hyperplasia without lower urinary tract symptoms; I11.0 Hypertensive heart disease with heart failure; M48.00 Spinal stenosis, site unspecified; E11.40 Type 2 diabetes mellitus with diabetic neuropathy, unspecified; Z79.01 Long term (current) use of anticoagulants; K21.9 Gastro-esophageal reflux disease without esophagitis; Z95.1 Presence of aortocoronary bypass graft; Z79.899 Other long term (current) drug therapy; Z79.02 Long term (current) use of antithrombotics/antiplatelets; Z79.4 Long term (current) use of insulin; Z79.84 Long term (current) use of oral hypoglycemic drugs; Z87.01 Personal history of pneumonia (recurrent); Z95.2 Presence of prosthetic heart valve; Z98.61 Coronary angioplasty status
CPT/HCPCS: 71046; 80048; 80053; 82728; 82962; 83036; 83540; 83550; 83605; 83735; 83880; 84145; 84484; 85025; 85027; 85610; 85730; 87040; 87205; 87502; 87811; 93005; 94640; 96365; 96375; 99285

== ENCOUNTER 2025-06-02 10:40 | Outpatient (REF) | payer OTHER, SELFPAY | END 2025-06-02 23:59 | disposition home or self-care (01) | LOC: WOUND 10:40 | PROVIDERS: ATTENDING PHYSICIAN Registered Nurse | DX: L89.154 Pressure ulcer of sacral region, stage 4 (principal); L89.623 Pressure ulcer of left heel, stage 3; Z79.01 Long term (current) use of anticoagulants; Z95.1 Presence of aortocoronary bypass graft; I73.9 Peripheral vascular disease, unspecified; E11.65 Type 2 diabetes mellitus with hyperglycemia; I10 Essential (primary) hypertension; Z95.2 Presence of prosthetic heart valve | CPT/HCPCS: 99213 ==

== ENCOUNTER → 2025-06-18 13:29 | Outpatient (REF) | payer OTHER, SELFPAY ==
[2025-06-18 17:55] LABS: Microalb - Urine Creatinine 112.100 mg/dl
[2025-06-18 17:59] LABS: Microalbumin, Random Urine 1.1 mg/dl (0.6-1.7)
[2025-06-18 18:15] LABS: Urine Character Clear (Clear)
[2025-06-18 18:46] LABS: Urine Red Blood Cell 0-2 /HPF (0-2)
== END ==
LOC: CLAB 13:29
PROVIDERS: ATTENDING PHYSICIAN Family Medicine
DX: E11.9 Type 2 diabetes mellitus without complications (principal)
CPT/HCPCS: 81003; 81015; 82043; 82570

== ENCOUNTER → 2025-06-23 08:42 | Outpatient (REF) | payer OTHER, SELFPAY | LOC: RAD 08:42 | PROVIDERS: ATTENDING PHYSICIAN Surgery Vascular Surgery; FAMILY PHYSICIAN Family Medicine | DX: I73.9 Peripheral vascular disease, unspecified (principal) | CPT/HCPCS: 93922; 93925 ==